=== PATIENT | male | born 1960 | race Caucasian/White ===

== ENCOUNTER 2020-09-22 18:26 | Inpatient (IN) | payer MEDICARE, MEDICAID, SELFPAY ==
[2020-09-22] VITALS (7 sets, daily range): BP systolic 94–118; BP diastolic 52–75; PULSE 107–113; RESP 20–37; TEMP 37.1–39.6; O2SAT 79–100; BMI 17.3
--- NOTE | 2020-09-22 21:04 | XR_ITS ---
EXAMINATION: XR CHEST CLINICAL INFORMATION: Hypoxia. Fever. COMPARISON: None TECHNIQUE: Frontal portable view of the chest was obtained. 9:10 PM FINDINGS: The chin overlies the right lung apex. Lung volume is low. This causes crowding of the bronchovascular markings. There is hazy airspace opacities at the left lung base concerning for pneumonia. There is no pleural effusion. XR/XR chest 1V IMPRESSION: Low lung volume. Hazy airspace opacities at left lung base concerning for pneumonia. Follow-up PA lateral view of chest would be helpful.
--- NOTE | 2020-09-22 21:05 | ED_ITS ---
HPI - Nausea/Vomiting/Diarrhea General Chief complaint: Nausea/Vomiting/Diarrhea Stated complaint: vomitting Time Seen by Provider: 09/22/20 21:03 Source: other (Caregiver) Mode of arrival: wheelchair Limitations: physical limitation (Patient with MR) History of Present Illness HPI Narrative: 60-year-old male with history of MR presented with his caregiver patient attendant a day program when started to have vomiting, patient also noted that he has fever 102, patient vomited several times after that, patient also noted to be coughing all day today. History is limited due to chronic mental status condition of the patient. Related Data Home Medications Medication Instructions Recorded Confirmed alendronate 70 mg PO Q7D 09/22/20 09/22/20 divalproex 250 mg PO DAILY 09/22/20 09/22/20 divalproex 500 mg PO BEDTIME 09/22/20 09/22/20 fluoxetine 60 mg PO DAILY@0630 09/22/20 09/22/20 fluvoxamine 1 tab PO BEDTIME 09/22/20 09/22/20 omeprazole 20 mg PO BID@0630,1630 09/22/20 09/22/20 Allergies Allergy/AdvReac Type Severity Reaction Status Date / Time No Known Allergies Allergy Verified 09/22/20 22:17 Review of Systems Review of Systems: Vital signs have been reviewed as normal and appeared to be correct. Blood pressure normal. Tachycardia. Respiration rate normal. Temperature normal. Hypoxia of 88% on room air.. Yes Unobtainable due to mental condition PMFSH Past Medical History Medical History Anxiety Cerebral palsy GERD (gastroesophageal reflux disease) Osteoporosis Seizure Spastic quadriplegia Social History Social History Alcohol intake: unknown Smoking Status: Unknown if ever smoked Use of substances other than those prescribed or required for medical reasons: Unknown Advance Directives: No Advance Directives Information Provided: Yes Physical Exam Vital Signs: Vital Signs: Last Vital Signs Temp 103.2 F H 09/22/20 22:08 Pulse 112 H 09/22/20 22:13 Resp 27 H 09/22/20 22:13 BP 96/75 09/22/20 22:13 Pulse Ox 97 11/18/20 22:13 Body Mass Index 17.3 Vital signs have been reviewed as normal and appeared to be correct. Blood pressure normal. Tachycardic. Respiration rate normal. Temperature normal. Hypoxia. Appearance: Alert, in bed position which is normal position as per caregiver. Head: Normal external exam. Normocephalic. Atraumatic. No [place] signs noted. No raccoon eyes noted Eyes: PERRLA. EOMI. Conjunctiva and sclera normal. Eyelids normal. ENT: EAC normal. TM's Normal. Pharynx normal. Uvula midline. Moist mucous membranes. No trismus noted. No drooling noted. No muffled voice noted. Neck: Normal inspection. Neck supple. FROM. No adenopathy. Thyroid Normal. No meningeal signs. No neck mass noted. CVS: Normal heart rate and rhythm. Heart sound normal. No murmurs noted. Pulses normal throughout. Respiratory: No respiratory distress. Painless inspiration. Breath sounds normal. No wheezes/rales/rhonchi noted. Chest nontender. No accessory muscle usage noted or decreased air movement noted. Abdomen: Soft and nontender. Bowel sounds normal in all 4 quadrants. No distention noted. No organomegaly noted. No visible injury noted. Back: No CVA tenderness. Full range of motion noted. Skin: Skin warm and dry. Normal skin color. Normal skin turgor. No rashes/lesions/lacerations noted. Extremities: No lower extremity edema. Extremities exhibit normal range of motion. Extremities nontender. Neuro: Oriented X 3. No motor deficit. No sensory deficit. Reflexes normal. MDM - Nausea/Vomiting/Diarrhea MDM Narrative Medical decision making narrative: Assessment and plan. 60-year-old male came in from half-way with fever, cough, nausea, vomiting. Patient found to have left lower lobe pneumonia, patient meet criteria for sepsis, no sign of severe sepsis or septic shock. Patient received 30 cc/kg fluid, patient live in half-way patient was covered with Zosyn/ceftriaxone for possible healthcare acquired pneumonia, patient is negative for COVID-19, will admit the patient and keep monitoring abnormal vital sign. Slight elevation of BUN but normal creatinine which is from dehydration secondary to nausea and vomiting. Otherwise patient is not sustaining severe sepsis or septic shock symptoms criteria. Lab Data Attestation: I reviewed the patient's lab results. Result diagrams: 09/22/20 21:29 09/22/20 21:29 Labs: Lab Results 09/22/20 09/22/20 09/22/20 Range/Units 21:28 21:29 21:29 WBC 19.6 H (4.8-10.8) X10*3/uL RBC 4.08 L (4.60-5.80) X10*6/uL Hgb 12.6 L (14.0-18.0) g/dl Hct 37.7 L (42-52) % MCV 92.4 (80-98) fL MCH 30.9 (27.0-33.0) pg MCHC 33.4 (31.0-36.0) g/dl RDW 12.1 (11.0-16.0) % Plt Count 233 (160-400) X10*3/uL MPV 11.0 (9.4-12.4) fL Immature Gran % (Auto) 0.3 (0.0-0.4) % Neut % (Auto) 92.4 H (45-73) % Lymph % (Auto) 1.8 L (20-40) % [place] % (Auto) 5.3 (2-11) % Eos % (Auto) 0.0 (0-4) % Baso % (Auto) 0.2 (0-2) % Lymph # (Auto) 0.4 L (1.2-4.9) X10*3/uL [place] # (Auto) 1.0 (0.1-1.2) X10*3/uL Eos # (Auto) 0.0 (0.0-0.4) X10*3/uL Baso # (Auto) 0.0 (0.0-0.2) X10*3/uL Abs Immat Gran (auto) 0.05 H (0.00-0.03) X10*3/uL Absolute Neuts (auto) 18.1 H (2.0-8.3) X10*3/uL Absolute Nucleated RBC 0.000 (0.0-0.012) X10*3/uL Nucleated RBC % (auto) 0.0 (0.0-0.2) /100WBC Smear Tech's Comments VERIFIED Sodium 136 (135-145) mmol/L Potassium 3.6 (3.3-5.1) mmol/l Chloride 101 (96-108) mmol/L Carbon Dioxide 24 (22-29) mmol/L Anion Gap 15 (12-20) BUN 23 H (9-16) mg/dL Creatinine 0.80 (0.5-1.4) mg/dL Estim Creat Clear Calc 65.2 Estimated GFR > 60 Random Glucose 118 H (60-115) mg/dL Lactic Acid (0.5-2.0) mmol/L Calcium 8.6 (8.4-10.2) mg/dL Total Bilirubin 0.4 (0.0-1.0) mg/dL Direct Bilirubin 0.2 (0.0-0.5) mg/dL AST 35 (5-37) U/L ALT 30 (0-40) U/L Alkaline Phosphatase 66 (39-117) U/L Total Protein 6.7 (6.5-8.0) g/dL Albumin 3.8 (3.5-5.0) g/dL Lipase 39 (8-78) U/L Urine Color Urine Appearance Urine pH (5.0-8.0) Ur Specific [place] (1.005-1.025) Urine Protein (NEG-TRACE) MG/DL Urine Glucose (UA) (NEG) MG/DL Urine Ketones (NEG) MG/DL Urine Blood (NEG) Urine Nitrite (NEG) Ur Leukocyte Esterase (NEG) Urine RBC (0) /HPF Urine WBC (0-4) /HPF Ur Squamous Epith Cells /LPF Urine Bacteria /LPF Urine Mucus /LPF COVID-19 (KATE) Negative (Negative) COVID-19 Clin Com See Note 09/22/20 09/22/20 Range/Units 21:29 21:59 WBC (4.8-10.8) X10*3/uL RBC (4.60-5.80) X10*6/uL Hgb (14.0-18.0) g/dl Hct (42-52) % MCV (80-98) fL MCH (27.0-33.0) pg MCHC (31.0-36.0) g/dl RDW (11.0-16.0) % Plt Count (160-400) X10*3/uL MPV (9.4-12.4) fL Immature Gran % (Auto) (0.0-0.4) % Neut % (Auto) (45-73) % Lymph % (Auto) (20-40) % [place] % (Auto) (2-11) % Eos % (Auto) (0-4) % Baso % (Auto) (0-2) % Lymph # (Auto) (1.2-4.9) X10*3/uL [place] # (Auto) (0.1-1.2) X10*3/uL Eos # (Auto) (0.0-0.4) X10*3/uL Baso # (Auto) (0.0-0.2) X10*3/uL Abs Immat Gran (auto) (0.00-0.03) X10*3/uL Absolute Neuts (auto) (2.0-8.3) X10*3/uL Absolute Nucleated RBC (0.0-0.012) X10*3/uL Nucleated RBC % (auto) (0.0-0.2) /100WBC Smear Tech's Comments Sodium (135-145) mmol/L Potassium (3.3-5.1) mmol/l Chloride (96-108) mmol/L Carbon Dioxide (22-29) mmol/L Anion Gap (12-20) BUN (9-16) mg/dL Creatinine (0.5-1.4) mg/dL Estim Creat Clear Calc Estimated GFR Random Glucose (60-115) mg/dL Lactic Acid 2.7 H* (0.5-2.0) mmol/L Calcium (8.4-10.2) mg/dL Total Bilirubin (0.0-1.0) mg/dL Direct Bilirubin (0.0-0.5) mg/dL AST (5-37) U/L ALT (0-40) U/L Alkaline Phosphatase (39-117) U/L Total Protein (6.5-8.0) g/dL Albumin (3.5-5.0) g/dL Lipase (8-78) U/L Urine Color YELLOW Urine Appearance HAZY Urine pH 6.0 (5.0-8.0) Ur Specific [place] 1.025 (1.005-1.025) Urine Protein NEG (NEG-TRACE) MG/DL Urine Glucose (UA) NEG (NEG) MG/DL Urine Ketones NEG (NEG) MG/DL Urine Blood 1+ H (NEG) Urine Nitrite NEG (NEG) Ur Leukocyte Esterase TRACE H (NEG) Urine RBC 1-4 (0) /HPF Urine WBC 1-4 (0-4) /HPF Ur Squamous Epith Cells NONE /LPF Urine Bacteria NONE /LPF Urine Mucus 2+ /LPF COVID-19 ([facility]ATE) (Negative) COVID-19 Clin Com Imaging Data Chest x-ray: Radiologist's impression: Hazy airspace opacities at left lung base concerning for pneumonia. Follow-up PA lateral view of chest would be helpful Discharge Plan Discharge Clinical Impression: Pneumonia Patient Disposition: Admitted As Inpatient Prescriptions: No Action divalproex 500 mg tablet extended release 24 hr 500 mg PO BEDTIME RF: 0 omeprazole 20 mg capsule,delayed release(DR/EC) 20 mg PO BID@0630,1630 RF: 0 fluvoxamine 50 mg tablet 1 tab PO BEDTIME RF: 0 divalproex 250 mg tablet extended release 24 hr 250 mg PO DAILY RF: 0 alendronate 70 mg/75 mL solution 70 mg PO Q7D RF: 0 fluoxetine 20 mg capsule 60 mg PO DAILY@0630 RF: 0
[2020-09-22 21:36] LABS: Basophils Percent Auto 0.2 % (0-2); Hematocrit 37.7 % (42-52); Hemoglobin 12.6 g/dl (14.0-18.0); Imm Gran Abs Auto 0.05 X10*3/uL (0.00-0.03); Imm Gran Pct Auto 0.3 % (0.0-0.4); Lymphocytes Absolute Auto 0.4 X10*3/uL (1.2-4.9); Lymphocytes Percent Auto 1.8 % (20-40); MANUAL DIFF FLAG SCAN; Mean Corpuscular HGB Conc 33.4 g/dl (31.0-36.0); Mean Corpuscular Hemoglobin 30.9 pg (27.0-33.0); Mean Corpuscular Volume 92.4 fL (80-98); Monocytes Percent Auto 5.3 % (2-11); Neutrophils Absolute Auto 18.1 X10*3/uL (2.0-8.3); Neutrophils Percent Auto 92.4 % (45-73); Platelet Count 233 X10*3/uL (160-400); Red Blood Count 4.08 X10*6/uL (4.60-5.80); Red Cell Distribution Width 12.1 % (11.0-16.0); SCAN SMEAR FLAG 1; White Blood Count 19.6 X10*3/uL (4.8-10.8)
[2020-09-22] MEDS: ondansetron HCL 4 MG/2 ML VIAL IVPUSH (21:45)
[2020-09-22] MEDS: 0.9 % Sodium Chloride 500 ML 1000 ML IV (21:45)
[2020-09-22 21:52] LABS: COVID-19 Test Negative (Negative)
[2020-09-22 21:54] LABS: SLIDE REVIEW VERIFIED
[2020-09-22 22:04] LABS: Glucose Urine UA NEG (NEG); Leukocyte Esterase Urine TRACE (NEG); Nitrite Urine NEG (NEG); Specific Gravity - Urine 1.025 (1.005-1.025); Urine Blood 1+ (NEG); Urine Ketones NEG (NEG); Urine Protein NEG (NEG-TRACE)
[2020-09-22 22:05] LABS: Appearance Urine HAZY; Color Urine YELLOW
[2020-09-22] MEDS: cefTRIAXone sodium 1 GM in 0.9 % Sodium Chloride 100 ML IV (22:08)
[2020-09-22 22:17] LABS: Mucus Urine 2+ /LPF
[2020-09-22 22:24] LABS: Alanine Aminotransferase 30 U/L (0-40); Albumin Level 3.8 g/dL (3.5-5.0); Alkaline Phosphatase 66 U/L (39-117); Anion Gap 15 (12-20); Aspartate Amino Transferase 35 U/L (5-37); Bilirubin Direct 0.2 mg/dL (0.0-0.5); Bilirubin Total 0.4 mg/dL (0.0-1.0); Blood Urea Nitrogen 23 mg/dL (9-16); Calcium 8.6 mg/dL (8.4-10.2); Carbon Dioxide 24 mmol/L (22-29); Chloride 101 mmol/L (96-108); Creatinine Clr Calc Pharmacy 65.2; Estimated Glomerular Filt Rate > 60; Glucose Random 118 mg/dL (60-115); Lipase 39 U/L (8-78); Potassium 3.6 mmol/l (3.3-5.1); Sodium 136 mmol/L (135-145); Total Protein 6.7 g/dL (6.5-8.0)
[2020-09-22 22:25] LABS: Lactic Acid 2.7 mmol/L (0.5-2.0)
--- NOTE | 2020-09-22 22:30 | PC.NURSE ---
Patient needs to have a puree diet thickened. Patient does take his pill but need to be in applesauce.
[2020-09-22] MEDS: Piperacillin Sodium/Tazobactam 3.375 GM in 0.9 % Sodium Chloride 50 ML IV (22:47)
[2020-09-22 23:37] LABS: Reflex Lactate? Lactic Acid Added
[2020-09-22] MEDS: vancomycin HCL 750 MG in 0.9 % Sodium Chloride 250 ML 265 MG IV (23:55)
[2020-09-23] VITALS (29 sets, daily range): BP systolic 90–155; BP diastolic 46–96; PULSE 90–120; RESP 16–50; TEMP 36.6–39.3; O2SAT 94–100
--- NOTE | 2020-09-23 01:06 | P.HPHOSP_ITS ---
History of Present Illness Date of Service: 09/23/20 Chief Complaint: Vomiting / cough 60 y/o male from [facility] who presented to the Ed due to persistent dry cough associted with an episode of vomiting. Patient has a hx of cerebral palsy and given cognitive function is unable to provide with any meaninful hx. Care give at the bedside who reports that today patient has been having this chronic cough which was associated with an episode of vomiting. Denies that the patient had any chest pain, SOB, diarrhea, constipation or any episode of fever today. On presentation to the ED, patient is noted to be tachycardic, tachypneic, borderline hypotensive, spiking multiple episodes of fever 102-103, WBC of 19, lactate of 2.7, UA positive for UTI, CXR positive for LLL opacities concerning for PNA. Patient was given one dose of Rocephin, Zosyn and Vanco per ED attending. Covid test negative. Decision for admission given. Patient was seen and examined at the bedside, laying down in bed in no acute distress. ROS unable to be obtained. Physical exam positive for bilateral LE contracted and UE, Mental impairment. Blood pressure borderline hypotensive, one bolus of NS order STAT. PMHX: Anxiety Cerebral palsy GERD (gastroesophageal reflux disease) Osteoporosis Seizure Spastic quadriplegia PSx: none Toxic habits: No documented hx of alcohol abuse, smoking or IVDA Review of Systems Review of Systems: Yes Other (unable to be obtained ) [facility] Medical History Anxiety Cerebral palsy GERD (gastroesophageal reflux disease) Osteoporosis Seizure Spastic quadriplegia Functional capacity: bed bound Family history: reviewed and not pertinent Social History Alcohol intake: unknown Smoking Status: Unknown if ever smoked Use of substances other than those prescribed or required for medical reasons: Unknown Advance Directives: No Advance Directives Information Provided: Yes Meds Allergies Allergy/AdvReac Type Severity Reaction Status Date / Time No Known Allergies Allergy Verified 09/22/20 22:17 Home Medications Medication Instructions Recorded Confirmed Type alendronate 70 mg PO Q7D 09/22/20 09/22/20 History divalproex 250 mg PO DAILY 09/22/20 09/22/20 History divalproex 500 mg PO BEDTIME 09/22/20 09/22/20 History fluoxetine 60 mg PO DAILY@0630 09/22/20 09/22/20 History fluvoxamine 1 tab PO BEDTIME 09/22/20 09/22/20 History omeprazole 20 mg PO BID@0630,1630 09/22/20 09/22/20 History Physical Exam Vital Signs and Narrative: Vital Signs: Last Vital Signs Temp 103.2 F H 09/22/20 22:08 Pulse 113 H 09/22/20 23:00 Resp 34 H 09/22/20 23:00 BP 94/54 L 09/22/20 23:00 Pulse Ox 100 09/22/20 23:00 Body Mass Index 17.3 Const: General: no acute distress, awake and Physically active Eyes: General: appearance normal, both eyes and all related structures Neck: Yes normal visual inspection Chest: Chest palpation & inspection: normal inspection of the chest Resp: Effort & Inspection: normal respiratory effort Cardio: Jugular venous distension: no JVD Rate: regular rate Rhythm: regular rhythm Heart sounds: S1 normal heart sound present and S2 normal heart sound present GI: Inspection: Yes normal to inspection Neuro: General: other (cognitive impairment present for what I am unable to assess orientation) Extrem: General: Yes other (contracted UE and LE ) Results Labs CBC and Chem 7: 09/22/20 21:29 09/22/20 21:29 Labs: Laboratory Results - last 24 hr 09/22/20 09/22/20 09/22/20 21:28 21:29 21:29 MCV 92.4 MCH 30.9 MCHC 33.4 RDW 12.1 Plt Count 233 MPV 11.0 Immature Gran % (Auto) 0.3 Neut % (Auto) 92.4 H Lymph % (Auto) 1.8 L [place] % (Auto) 5.3 Eos % (Auto) 0.0 Baso % (Auto) 0.2 Lymph # (Auto) 0.4 L [place] # (Auto) 1.0 Eos # (Auto) 0.0 Baso # (Auto) 0.0 Abs Immat Gran (auto) 0.05 H Absolute Neuts (auto) 18.1 H Absolute Nucleated RBC 0.000 Nucleated RBC % (auto) 0.0 Smear Tech's Comments VERIFIED Anion Gap 15 Estim Creat Clear Calc 65.2 Estimated GFR > 60 Random Glucose 118 H Lactic Acid Calcium 8.6 Total Bilirubin 0.4 Direct Bilirubin 0.2 AST 35 ALT 30 Alkaline Phosphatase 66 Total Protein 6.7 Albumin 3.8 Lipase 39 Urine Color Urine Appearance Urine pH Ur Specific [place] Urine Protein Urine Glucose (UA) Urine Ketones Urine Blood Urine Nitrite Ur Leukocyte Esterase Urine RBC Urine WBC Ur Squamous Epith Cells Urine Bacteria Urine Mucus COVID-19 (KATE) Negative COVID-19 Clin Com See Note 09/22/20 09/22/20 21:29 21:59 MCV MCH MCHC RDW Plt Count MPV Immature Gran % (Auto) Neut % (Auto) Lymph % (Auto) [place] % (Auto) Eos % (Auto) Baso % (Auto) Lymph # (Auto) [place] # (Auto) Eos # (Auto) Baso # (Auto) Abs Immat Gran (auto) Absolute Neuts (auto) Absolute Nucleated RBC Nucleated RBC % (auto) Smear Tech's Comments Anion Gap Estim Creat Clear Calc Estimated GFR Random Glucose Lactic Acid 2.7 H* Calcium Total Bilirubin Direct Bilirubin AST ALT Alkaline Phosphatase Total Protein Albumin Lipase Urine Color YELLOW Urine Appearance HAZY Urine pH 6.0 Ur Specific [place] 1.025 Urine Protein NEG Urine Glucose (UA) NEG Urine Ketones NEG Urine Blood 1+ H Urine Nitrite NEG Ur Leukocyte Esterase TRACE H Urine RBC 1-4 Urine WBC 1-4 Ur Squamous Epith Cells NONE Urine Bacteria NONE Urine Mucus 2+ COVID-19 (KATE) COVID-19 Clin Com Imaging Radiologist's Impressions: Impressions Chest X-Ray 09/22/20 21:04 IMPRESSION: Low lung volume. Hazy airspace opacities at left lung base concerning for pneumonia. Follow-up PA lateral view of chest would be helpful. Assessment and Plan (1) Sepsis: Status: Acute Keep MAP >65 mmHg Continue with aggressive IV hydration Continue with Vancomycin for gram positive coverage Continue with Zosyn for gram neg coverage Follow up Bcx as collected in the ED Infectious disease consult in the am (2) HCAP (healthcare-associated pneumonia): Status: Acute plan as above (3) UTI (urinary tract infection): Status: Acute Follow up Ucx Continue with IV antbx as stated above (4) GERD (gastroesophageal reflux disease): Status: Acute continue with PPI home dose (5) Seizure: Status: Acute continue with AED's home dose (6) Osteoporosis: Status: Acute continue with allendronate home dose (7) Cerebral palsy: Status: Acute stable continue with fluoxetine home dose
[2020-09-23] MEDS: LORazepam 2 MG/ML VIAL 1 MG IVPUSH (01:31)
[2020-09-23] MEDS: 0.9 % Sodium Chloride 1,000 ML 999 ML IVCONT (01:32)
--- NOTE | 2020-09-23 03:47 | XR_ITS ---
EXAMINATION: XR CHEST CLINICAL INFORMATION: Shortness of breath COMPARISON: 09/22/2020 TECHNIQUE: Frontal view of the chest was obtained. FINDINGS: Lungs are hypoinflated which limits evaluation. Patchy retrocardiac opacity is suspected, increased from prior. There is some prominence of the perihilar interstitium bilaterally which could reflect thick-walled airways. No appreciable pneumothorax or significant pleural effusion. The cardiomediastinal contour is unremarkable. No acute osseous findings are seen. XR/XR chest 1V IMPRESSION: Low lung volumes. Patchy retrocardiac opacity is suspected, increased from prior.
--- NOTE | 2020-09-23 04:34 | CT_ITS ---
EXAMINATION: CT ABDOMEN AND PELVIS WITH CONTRAST CLINICAL INFORMATION: Abdominal discomfort COMPARISON: None TECHNIQUE: Multidetector volumetric images were obtained from the superior aspect of the liver through the pubic symphysis following administration 85 mL of Omnipaque 350 intravenous contrast. Sagittal and coronal reformatted images were obtained on the technologist's workstation. Oral contrast: No This CT examination was performed using dose optimization techniques as appropriate, variously including the following: *Automated exposure control *Adjustment of mA and/or kV according to patient size (this includes techniques or standardized protocols for targeted exams where dose is matched to indication/reason for exam; i.e. extremities or head) *Use of iterative reconstruction technique DLP: 436 mGy-cm FINDINGS: Significantly limited evaluation of much of the abdomen/pelvis secondary to extensive motion artifact. LUNG BASES: Moderately extensive regions of patchy consolidation and groundglass opacity at the lung bases. LIVER, GALLBLADDER, AND BILIARY TREE: The liver is grossly unremarkable. No intrahepatic biliary ductal dilatation. Gallbladder is not well evaluated. PANCREAS: Grossly unremarkable. SPLEEN: Grossly unremarkable. ADRENAL GLANDS: Grossly unremarkable. KIDNEYS AND URETERS: The kidneys are normal in size, shape, and attenuation. No hydronephrosis, hydroureter, or obstructing calculi seen. No perinephric stranding. BLADDER: Minimally distended. GASTROINTESTINAL TRACT: Large amount of stool is present in the rectum and sigmoid colon with mild associated wall thickening. No convincing evidence of bowel obstruction. ABDOMINAL WALL: No significant hernia is appreciated. LYMPH NODES: Grossly unremarkable. VASCULAR: Unremarkable. OSSEOUS STRUCTURES: Grossly unremarkable. CT/CT abdomen pelvis w con IMPRESSION: 1. Limited assessment due to extensive patient motion artifact. Large amount of stool is present in the rectum and sigmoid colon. Mild associated wall thickening is present, which could reflect developing stercoral colitis. 2. Moderately extensive bibasilar pulmonary opacities, which could be secondary to aspiration and/or pneumonia.
[2020-09-23 04:37] LABS: Lactic Acid 2.2 mmol/L (0.5-2.0)
[2020-09-23 04:44] LABS: Base Excess VBG -5.3 mmol/L; HCO3 VBG 20 mmol/L; Oxygen Saturation VBG 85.4 %; PCO2 VBG 38 mmhg; PO2 VBG 53 mmhg; pH VBG 7.34 (7.32-7.43)
--- NOTE | 2020-09-23 05:45 | PC.NURSE ---
Patient remains tachypneic despite being on bipap. 02 sat has improved but patient is breathing hard. 34/45 breaths per minutes. Vbg drawn. Respiratory has been involved in patient's care. MD wanted patient to be weened off bipap and 02 decreased and patient placed on venti-mask. HR remains above 100. MD made aware of 0xygen sat dropping into 80's. Patient placed back on a non rebreather.
[2020-09-23 06:17] LABS: Reflex Lactate? Lactic Acid Added
[2020-09-23] MEDS: iohexoL 350 MG/ML 100 ML INFUS..BTL 65 ML IV (06:35)
--- NOTE | 2020-09-23 07:39 | PC.NURSE ---
report taken from andres cobb pt has been having difficulty maintaining o2 >90% on nb, provider at bedside to wen pt. pt is intermittently desatting to mid 80s on nonrebreather, pt has mental disability and is nonverbal, pt making labile movements in stretcher, having difficulty keeping mask on. plan to tranfer pt to room 5 for intubation, per dr arzate. pt intubated at 0731, et tube 7.5 and 25 elia. ls ausc bl +color change co2 detector. pt now sustaining o2 sat >95%. wctm.
[2020-09-23] MEDS: Etomidate 20 MG/10 ML VIAL 10 MG IVPUSH (07:43)
[2020-09-23] MEDS: fentaNYL citrate/NS 1,000 MCG/100 ML PLAST..BAG 2.5 MCG IVCONT (07:55)
--- NOTE | 2020-09-23 07:59 | XR_ITS ---
EXAMINATION: XR CHEST CLINICAL INFORMATION: Status post intubation and OG tube placement COMPARISON: 09/23/2020 TECHNIQUE: Frontal view of the chest was obtained. FINDINGS: The endotracheal tube terminates 2.5 cm above the milind. The enteric tube extends into the stomach. Cardiac leads overlie the chest. The lungs are well expanded. Patchy opacity seen at the left mid to lower lung, similar to prior. No pleural effusion or pneumothorax. The cardiomediastinal silhouette is within normal limits. XR/XR chest 1V IMPRESSION: Endotracheal tube terminates 2.5 cm above the milind. Enteric tube terminates in the stomach. Persistent patchy left basilar opacity.
--- NOTE | 2020-09-23 08:25 | CT_ITS ---
EXAMINATION: CT CHEST WITHOUT CONTRAST CLINICAL INFORMATION: Hypoxia COMPARISON: Radiograph from earlier today TECHNIQUE: Multidetector volumetric CT imaging of the chest was done. Axial MIP volume rendering provided. Sagittal and coronal reformatted images were obtained. This CT examination was performed using dose optimization techniques as appropriate, variously including the following: *Automated exposure control *Adjustment of mA and/or kV according to patient size (this includes techniques or standardized protocols for targeted exams where dose is matched to indication/reason for exam; i.e. extremities or head) *Use of iterative reconstruction technique DLP: 163 mGy-cm FINDINGS: LUNGS: The endotracheal tube terminates approximately 2 cm above the milind. The central airways are patent. Groundglass opacities are seen with heterogeneous distribution involving both upper lobes. Areas of consolidation are seen in both lower lobes with air bronchograms. Small right pleural effusion. No pneumothorax. Motion on the study limits evaluation for small nodules. Subtle tree-in-bud nodular opacities are suspected in the right middle lobe. MEDIASTINUM: Normal heart size. No pericardial effusion. No mediastinal lymphadenopathy. AXILLA: No lymphadenopathy. UPPER ABDOMEN: Contrast is seen in both renal collecting systems, from prior abdominal CT. No acute abnormality. Enteric tube extending into the stomach. OSSEOUS STRUCTURES: No acute or suspicious osseous abnormality. Scoliotic curvature of the spine with degenerative change. Height loss of multiple thoracic vertebral bodies noted, and particular T5, T6, T7, and T8. CT/CT chest wo con IMPRESSION: Endotracheal tube terminating 2 cm above the milind. Groundglass opacities are seen in both upper lobes with more dense consolidation patchy in both lower lobes. Small right pleural effusion. Considerations include multifocal pneumonia. Aspiration possible. Atypical pneumonia is possible. Cannot exclude viral pneumonia and inflammatory processes.
--- NOTE | 2020-09-23 08:47 | PC.NURSE ---
og tube placed, +auscultation of placement. go catheter placed draining clear yellow urine att, initial drainage 100 ml. commercial designer at bedside.
--- NOTE | 2020-09-23 09:28 | PC.NURSE ---
pt has been becoming difficult to sedate, pt breathing rate over vent, auto electrician contacted to inquire about further sedation
[2020-09-23] MEDS: propofoL 1,000 MG/100 ML VIAL 5.5 MG IVCONT (09:58)
[2020-09-23] MEDS: 0.9 % Sodium Chloride 1,000 ML 100 ML IVCONT ×2 (10:03→20:50)
[2020-09-23 10:51] LABS: Hematocrit 31.6 % (42-52); Hemoglobin 10.3 g/dl (14.0-18.0); Mean Corpuscular HGB Conc 32.6 g/dl (31.0-36.0); Mean Corpuscular Volume 95.2 fL (80-98); Mean Platelet Volume 11.1 fL (9.4-12.4); Platelet Count 144 X10*3/uL (160-400); Red Blood Count 3.32 X10*6/uL (4.60-5.80); Red Cell Distribution Width 12.6 % (11.0-16.0); White Blood Count 16.9 X10*3/uL (4.8-10.8)
[2020-09-23 11:13] LABS: Neutrophils Percent Manual 69 % (45-73); ~Lactic Acid-LAB USE ONLY 1.1 mmol/L (0.5-2.0)
[2020-09-23 11:14] LABS: Band Neutrophils Percent 19 % (3-5); Lymphocytes Absolute Manual 1.5 X10*3/uL (0.6-4.8); Lymphocytes Percent Manual 9 % (20-40); Metamyelocytes Absolute 0.2 X10*3/uL; Metamyelocytes Percent 1 %; Monocytes Absolute Manual 0.3 X10*3/uL (0.0-1.2); Monocytes Percent Manual 2 % (2-11); Neutrophils Absolute Manual 14.9 X10*3/uL (2.2-7.9)
[2020-09-23 11:15] LABS: Hypochromasia 1+; Platelet Estimate SLIGHTLY DECREASED (NORMAL); Platelet Morphology Comment NORMAL; RBC Morphology NOTED
[2020-09-23 11:20] LABS: Blood Urea Nitrogen 16 mg/dL (9-16); Estimated Glomerular Filt Rate > 60; Glucose Random 98 mg/dL (60-115)
[2020-09-23 11:36] LABS: Anion Gap 8 (12-20); Calcium 6.8 mg/dL (8.4-10.2); Carbon Dioxide 26 mmol/L (22-29); Chloride 109 mmol/L (96-108); Potassium 4.2 mmol/l (3.3-5.1); Sodium 139 mmol/L (135-145)
[2020-09-23] MEDS: Heparin Sodium,Porcine 5,000 UNIT/ML VIAL 5000 UNIT SUBCUT ×2 (11:39→17:35)
[2020-09-23] MEDS: 0.9 % Sodium Chloride Flush 3 ML SYRINGE IVFLUSH ×2 (11:40→14:56)
[2020-09-23] MEDS: Piperacillin Sodium/Tazobactam 3.375 GM in 0.9 % Sodium Chloride 50 ML IV ×3 (11:40→21:30)
[2020-09-23] MEDS: Albuterol/Iprat 2.5/0.5MG 3 ML AMPUL.NEB INHALE ×3 (12:04→19:56)
[2020-09-23] MEDS: Midazolam HCl/PF 2 MG/2 ML VIAL 5 MG IVPUSH (12:15)
[2020-09-23] MEDS: Midazolam HCl/PF 2 MG/2 ML VIAL 3 MG IVPUSH (12:30)
--- NOTE | 2020-09-23 12:39 | XR_ITS ---
EXAMINATION: XR CHEST CLINICAL INFORMATION: Evaluate central line placement. COMPARISON: Chest radiograph from 09/22/2020 through 09/23/2020 TECHNIQUE: Frontal view of the chest was obtained. FINDINGS: An endotracheal tube terminates approximately 2.5 cm above the milind. An enteric tube terminates in the region of the stomach. A right internal jugular approach central venous catheter terminates within the right atrium, approximately 3.5 cm from the cavoatrial junction. There is no pneumothorax. Cardiac leads overlie the chest. Bilateral patchy pulmonary opacities are slightly increased when compared to the prior examination. The pulmonary vasculature is engorged. There is no large pleural effusion. XR/XR chest 1V IMPRESSION: Endotracheal tube terminates approximately 2.5 cm above the milind. A right internal jugular approach venous catheter terminates within the right atrium, approximately 3.5 cm from the cavoatrial junction. Bilateral patchy pulmonary opacities are slightly increased when compared to the prior examination.
[2020-09-23 12:57] LABS: Adenovirus PCR Not Detected (Not Detect.); Bordetella parapertussis PCR Not Detected (Not Detect.); Bordetella pertussis PCR Not Detected (Not Detect.); Chlamydia pneumoniae PCR Not Detected (Not Detect.); Coronavirus 229E PCR Not Detected (Not Detect.); Coronavirus HKU1 PCR Not Detected (Not Detect.); Coronavirus NL63 PCR Not Detected (Not Detect.); Coronavirus OC43 PCR Not Detected (Not Detect.); Human metapneumovirus PCR Not Detected (Not Detect.); Influenza A PCR Not Detected (Not Detect.); Influenza B PCR Not Detected (Not Detect.); Mycoplasma pneumoniae PCR Not Detected (Not Detect.); Parainfluenza 1 PCR Not Detected (Not Detect.); Parainfluenza 2 PCR Not Detected (Not Detect.); Parainfluenza 3 PCR Not Detected (Not Detect.); Parainfluenza 4 PCR Not Detected (Not Detect.); RSV PCR Not Detected (Not Detect.); Rhino/Enterovirus PCR Not Detected (Not Detect.); SARS-CoV-2 PCR Not Detected (Not Detect.)
[2020-09-23] MEDS: Midazolam HCl/PF 2 MG/2 ML VIAL IVPUSH (13:14)
[2020-09-23] MEDS: Rocuronium Bromide 50 MG/5 ML VIAL 20 MG IVPUSH ×2 (13:15→14:45)
[2020-09-23 13:19] LABS: Base Excess VBG -4.2 mmol/L; HCO3 VBG 22 mmol/L; Oxygen Saturation VBG 87.9 %; PCO2 VBG 42 mmhg; PO2 VBG 57 mmhg; pH VBG 7.33 (7.32-7.43)
[2020-09-23] MEDS: Furosemide 20 MG/2 ML VIAL 10 MG IVPUSH (13:45)
--- NOTE | 2020-09-23 13:59 | PM.CCHP ---
History of Present Illness Date of Service: 09/23/20 Chief Complaint: shortness of breath 60-year-old the urine with significant congenital issues in including mental compromise non communicative and wheelchair-bound noted to be short of breath presented with acute hypoxemic respiratory failure intubated with significant pattern of extensive bilateral ground-glass infiltrates and consolidation with elevated white count and left shift negative for COVID but the rest of the respiratory panel is pending he has become increasingly hypercapnic with end-tidal CO2 is dropping to 17 in the face of a pCO2 of over 40 no change in in pH no change in bicarb and proof of resolved lactate and what looks like increasing extent of infiltrates bilaterally and we now have CVP measurements which have been hovering at around 10 the implication here is that this is a response to diminishing alveolar ventilation, in other words, increasing space potentially consistent with pulmonary edema versus progressive ARDS bedside echo shows normal LV and RV size and function with no primary valve or pericardial disease right internal jugular central venous pressure line with tip in the right atrium was placed because of lack of venous access and the patient is being treated with Zosyn and vancomycin Review of Systems Review of Systems: unable because of sedation and intubation [facility] Past Medical History Medical History (Updated 09/23/20 @ 07:56 by Balbina Thompson MD) Anxiety Cerebral palsy GERD (gastroesophageal reflux disease) Osteoporosis Seizure Spastic quadriplegia Functional capacity: bed bound Family History Family history: reviewed and not pertinent Social History Social History Household Members: Other Household Members Other:: senior care Housing: House Alcohol intake: unknown Smoking Status: Unknown if ever smoked Use of substances other than those prescribed or required for medical reasons: Unknown Advance Directives: No Advance Directives Information Provided: Yes Recently lost weight without trying: Unsure Meds Allergies Allergy/AdvReac Type Severity Reaction Status Date / Time No Known Allergies Allergy Verified 09/22/20 22:17 Home Medications Medication Instructions Recorded Confirmed Type alendronate 70 mg PO Q7D 09/22/20 09/22/20 History divalproex 250 mg PO DAILY 09/22/20 09/22/20 History divalproex 500 mg PO BEDTIME 09/22/20 09/22/20 History fluoxetine 60 mg PO DAILY@0630 11/18/20 11/18/20 History fluvoxamine 1 tab PO BEDTIME 09/22/20 09/22/20 History omeprazole 20 mg PO BID@0630,1630 09/22/20 09/22/20 History Physical Exam Vital Signs: Vital Signs: Last Vital Signs Temp 98.1 F 09/23/20 13:00 Pulse 115 H 09/23/20 13:00 Resp 20 09/23/20 13:00 BP 107/65 09/23/20 13:00 Pulse Ox 97 09/23/20 13:00 Body Mass Index 17.3 sedated and intubated with skin intact no wounds no rash no decubiti I no acrocyanosis no neck vein distension and no edema good bilateral carotid upstrokes without bruits and normal S1 and normal S2 with no gallops or murmurs chest rising equally without audible wheeze but in end-tidal CO2 pattern indicating bronchospasm abdomen is benign no bruits no tenderness no organomegaly and normal flat plate Results Labs CBC and Chem 7: 09/23/20 10:41 09/23/20 10:41 Labs: Laboratory Results - last 24 hr 09/22/20 09/22/20 09/22/20 21:28 21:29 21:29 MCV 92.4 MCH 30.9 MCHC 33.4 RDW 12.1 Plt Count 233 MPV 11.0 Immature Gran % (Auto) 0.3 Neut % (Auto) 92.4 H Lymph % (Auto) 1.8 L [place] % (Auto) 5.3 Eos % (Auto) 0.0 Baso % (Auto) 0.2 Lymph # (Auto) 0.4 L [place] # (Auto) 1.0 Eos # (Auto) 0.0 Baso # (Auto) 0.0 Abs Immat Gran (auto) 0.05 H Absolute Neuts (auto) 18.1 H Absolute Nucleated RBC 0.000 Nucleated RBC % (auto) 0.0 Neutrophils % (Manual) Band Neutrophils % Lymphocytes % (Manual) Monocytes % (Manual) Metamyelocytes % Abs Neuts (Manual) Lymphocytes # (Manual) Monocytes # (Manual) Metamyelocytes # Platelet Estimate Plt Morphology Comment RBC Morphology Hypochromasia Smear Tech's Comments VERIFIED VBG pH VBG pCO2 VBG pO2 VBG HCO3 VBG O2 Saturation VBG Base Excess Anion Gap 15 Estim Creat Clear Calc 65.2 Estimated GFR > 60 Random Glucose 118 H Lactic Acid Lactic Acid Fup @ 2Hr Calcium 8.6 Total Bilirubin 0.4 Direct Bilirubin 0.2 AST 35 ALT 30 Alkaline Phosphatase 66 Total Protein 6.7 Albumin 3.8 Lipase 39 Urine Color Urine Appearance Urine pH Ur Specific [place] Urine Protein Urine Glucose (UA) Urine Ketones Urine Blood Urine Nitrite Ur Leukocyte Esterase Urine RBC Urine WBC Ur Squamous Epith Cells Urine Bacteria Urine Mucus COVID-19 (KATE) Negative COVID-19 Clin Com See Note 09/22/20 09/22/20 09/23/20 21:29 21:59 04:10 MCV MCH MCHC RDW Plt Count MPV Immature Gran % (Auto) Neut % (Auto) Lymph % (Auto) [place] % (Auto) Eos % (Auto) Baso % (Auto) Lymph # (Auto) [place] # (Auto) Eos # (Auto) Baso # (Auto) Abs Immat Gran (auto) Absolute Neuts (auto) Absolute Nucleated RBC Nucleated RBC % (auto) Neutrophils % (Manual) Band Neutrophils % Lymphocytes % (Manual) Monocytes % (Manual) Metamyelocytes % Abs Neuts (Manual) Lymphocytes # (Manual) Monocytes # (Manual) Metamyelocytes # Platelet Estimate Plt Morphology Comment RBC Morphology Hypochromasia Smear Tech's Comments VBG pH VBG pCO2 VBG pO2 VBG HCO3 VBG O2 Saturation VBG Base Excess Anion Gap Estim Creat Clear Calc Estimated GFR Random Glucose Lactic Acid 2.7 H* 2.2 H* Lactic Acid Fup @ 2Hr Calcium Total Bilirubin Direct Bilirubin AST ALT Alkaline Phosphatase Total Protein Albumin Lipase Urine Color YELLOW Urine Appearance HAZY Urine pH 6.0 Ur Specific [place] 1.025 Urine Protein NEG Urine Glucose (UA) NEG Urine Ketones NEG Urine Blood 1+ H Urine Nitrite NEG Ur Leukocyte Esterase TRACE H Urine RBC 1-4 Urine WBC 1-4 Ur Squamous Epith Cells NONE Urine Bacteria NONE Urine Mucus 2+ COVID-19 (KATE) COVID-19 Clin Com 09/23/20 09/23/20 09/23/20 04:38 10:41 10:41 MCV 95.2 MCH 31.0 MCHC 32.6 RDW 12.6 Plt Count 144 L D MPV 11.1 Immature Gran % (Auto) Cancelled Neut % (Auto) Cancelled Lymph % (Auto) Cancelled [place] % (Auto) Cancelled Eos % (Auto) Cancelled Baso % (Auto) Cancelled Lymph # (Auto) Cancelled [place] # (Auto) Cancelled Eos # (Auto) Cancelled Baso # (Auto) Cancelled Abs Immat Gran (auto) Cancelled Absolute Neuts (auto) Cancelled Absolute Nucleated RBC 0.000 Nucleated RBC % (auto) 0.0 Neutrophils % (Manual) 69 Band Neutrophils % 19 H Lymphocytes % (Manual) 9 L Monocytes % (Manual) 2 Metamyelocytes % 1 Abs Neuts (Manual) 14.9 H Lymphocytes # (Manual) 1.5 Monocytes # (Manual) 0.3 Metamyelocytes # 0.2 Platelet Estimate SLIGHTLY DECREASED Plt Morphology Comment NORMAL RBC Morphology NOTED Hypochromasia 1+ Smear Tech's Comments VBG pH 7.34 VBG pCO2 38 VBG pO2 53 VBG HCO3 20 VBG O2 Saturation 85.4 VBG Base Excess -5.3 Anion Gap Estim Creat Clear Calc Estimated GFR Random Glucose Lactic Acid Lactic Acid Fup @ 2Hr 1.1 Calcium Total Bilirubin Direct Bilirubin AST ALT Alkaline Phosphatase Total Protein Albumin Lipase Urine Color Urine Appearance Urine pH Ur Specific [place] Urine Protein Urine Glucose (UA) Urine Ketones Urine Blood Urine Nitrite Ur Leukocyte Esterase Urine RBC Urine WBC Ur Squamous Epith Cells Urine Bacteria Urine Mucus COVID-19 (KATE) COVID-19 Clin Com 09/23/20 09/23/20 10:41 12:53 MCV MCH MCHC RDW Plt Count MPV Immature Gran % (Auto) Neut % (Auto) Lymph % (Auto) [place] % (Auto) Eos % (Auto) Baso % (Auto) Lymph # (Auto) [place] # (Auto) Eos # (Auto) Baso # (Auto) Abs Immat Gran (auto) Absolute Neuts (auto) Absolute Nucleated RBC Nucleated RBC % (auto) Neutrophils % (Manual) Band Neutrophils % Lymphocytes % (Manual) Monocytes % (Manual) Metamyelocytes % Abs Neuts (Manual) Lymphocytes # (Manual) Monocytes # (Manual) Metamyelocytes # Platelet Estimate Plt Morphology Comment RBC Morphology Hypochromasia Smear Tech's Comments VBG pH 7.33 VBG pCO2 42 VBG pO2 57 VBG HCO3 22 VBG O2 Saturation 87.9 VBG Base Excess -4.2 Anion Gap 8 L Estim Creat Clear Calc 79.0 Estimated GFR > 60 Random Glucose 98 Lactic Acid Lactic Acid Fup @ 2Hr Calcium 6.8 L D Total Bilirubin Direct Bilirubin AST ALT Alkaline Phosphatase Total Protein Albumin Lipase Urine Color Urine Appearance Urine pH Ur Specific [place] Urine Protein Urine Glucose (UA) Urine Ketones Urine Blood Urine Nitrite Ur Leukocyte Esterase Urine RBC Urine WBC Ur Squamous Epith Cells Urine Bacteria Urine Mucus COVID-19 (KATE) COVID-19 Clin Com Imaging Radiologist's Impressions: Impressions Chest X-Ray 09/22/20 21:04 IMPRESSION: Low lung volume. Hazy airspace opacities at left lung base concerning for pneumonia. Follow-up PA lateral view of chest would be helpful. Chest X-Ray 09/23/20 03:47 IMPRESSION: Low lung volumes. Patchy retrocardiac opacity is suspected, increased from prior. Abdomen/Pelvis CT 09/23/20 04:34 IMPRESSION: 1. Limited assessment due to extensive patient motion artifact. Large amount of stool is present in the rectum and sigmoid colon. Mild associated wall thickening is present, which could reflect developing stercoral colitis. 2. Moderately extensive bibasilar pulmonary opacities, which could be secondary to aspiration and/or pneumonia. Chest X-Ray 09/23/20 07:59 IMPRESSION: Endotracheal tube terminates 2.5 cm above the milind. Enteric tube terminates in the stomach. Persistent patchy left basilar opacity. Chest CT 09/23/20 08:25 IMPRESSION: Endotracheal tube terminating 2 cm above the milind. Groundglass opacities are seen in both upper lobes with more dense consolidation patchy in both lower lobes. Small right pleural effusion. Considerations include multifocal pneumonia. Aspiration possible. Atypical pneumonia is possible. Cannot exclude viral pneumonia and inflammatory processes. Chest X-Ray 09/23/20 12:39 IMPRESSION: Endotracheal tube terminates approximately 2.5 cm above the milind. A right internal jugular approach venous catheter terminates within the right atrium, approximately 3.5 cm from the cavoatrial junction. Bilateral patchy pulmonary opacities are slightly increased when compared to the prior examination. Assessment and Plan (1) Acute respiratory failure: Qualifiers: Respiratory failure complication: hypoxia Qualified Code(s): J96.01 - Acute respiratory failure with hypoxia Status: Acute (2) GERD (gastroesophageal reflux disease): Status: Acute (3) Seizure: Status: Acute (4) Osteoporosis: Status: Acute (5) Cerebral palsy: Status: Acute (6) UTI (urinary tract infection): Status: Acute (7) HCAP (healthcare-associated pneumonia): Status: Acute (8) Sepsis: Status: Acute (9) Pneumonia: Qualifiers: Laterality: left Lung location: lower lobe of lung Pneumonia type: due to unspecified organism Qualified Code(s): J18.9 - Pneumonia, unspecified organism Status: Acute will continue Zosyn and vancomycin and adding Decadron and the albuterol and will attempt 10 mg of Lasix because of CVP rising to 12 with a plus Thorek chest x-ray where I can not rule out a contribution from pulmonary edema
[2020-09-23 14:10] LABS: Vancomycin Trough < 3.0 mcg/mL (10.0-20.0)
--- NOTE | 2020-09-23 14:12 | W.PM.CCHP ---
Procedures Abscess I/D Date of Service: 09/23/20 Central Line Placement Right IJ: Central Line Comments: after sterile preparation and draping in the usual fashion and utilizing ultrasound guidance I inserted a J tipped guidewire after single stick with easy access retrograde with Seldinger technique to the right atrium over which a dilator and then followed by a 16 cm triple-lumen central venous pressure catheter with its tip in the right atrium and no evidence of pneumothorax Consent for Procedure: Emergent-no informed consent obtained Time out performed: Yes Sterile Technique Used: Yes Patient placed on monitor/pulse ox: Yes MD prep: mask, gown and gloves Central line prep: Chlorhexidine scrub Local anesthesia used: lidocaine 1% Ultrasound used for placement: Yes Central line lumen inserted: triple Post procedure: sutured in place, good blood return, all ports aspirated, flushed, capped and sterile dressing applied Post procedure x-ray: tip of catheter in good position and no pneumothorax seen Patient tolerated procedure: well and no complications Complications: none
[2020-09-23] MEDS: dexAMETHasone sod phosphate 4 MG/ML VIAL 6 MG IVPUSH ×2 (14:56→20:50)
[2020-09-23] MEDS: Chlorhexidine Gluc Oral Rinse 15 ML MOUTHWASH BUCCAL ×2 (16:15→20:50)
--- NOTE | 2020-09-23 17:11 | PC.NURSE ---
Patient arrived from ED via stretcher at 1200 - Afebrile. Patient arousable to tactile stimuli - Propofol gtt administering - multiple versed IVP doses administered per EMAR with minimal effect. RR up to 40 on vent, HR 120's - Patient received two doses of Chidi 20mg IVP - Vent settings changed from AC 20, 300, 5, 40% to PC 18/5 40%, TV 460-510, MV 9-10. Patient appears more comfortable on new settings - RR down to 20, HR 110's. Lung sounds coarse bilateral upper lobes, small amount of hill inline secretions. TLC RIJ placed by senior devops engineer. Lasix 10mg IVP ordered and administered - CVP 6-10, output approximately 900cc yellow urine. Okay per MD to resume NS at 100cc/hr. BP soft - patient started on levophed gtt and titrated per EMAR. No BM - feet enema ordered and to be administered with next reposition. No skin integrity concerns - patient placed on air loss mattress and hover mat, full bed bath completed, oral care completed, repositioned q2hr. HCP updated and agreeable to plan of care. Will continue to monitor.
[2020-09-23] MEDS: propofoL 1,000 MG/100 ML VIAL 11 MG IVCONT (17:36)
[2020-09-23] MEDS: Sodium Phosphate,Mono-Dibasic 133 ML ENEMA PR (18:11)
[2020-09-24] VITALS (33 sets, daily range): BP systolic 106–125; BP diastolic 53–73; PULSE 89–107; RESP 15–18; TEMP 36–38.1; O2SAT 92–98; BMI 17.4
--- NOTE | 2020-09-24 | XR_ITS ---
EXAMINATION: XR CHEST CLINICAL INFORMATION: On ventilator, follow-up. COMPARISON: 09/23/2020 portable chest. TECHNIQUE: Frontal view of the chest was obtained. FINDINGS: Support devices: The endotracheal tube is seen with tip terminating approximately 3.2 cm proximal to the milind. A right internal jugular catheter seen with tip terminating at the level the right atrium. The nasogastric tube is seen with tip overlying the left upper quadrant/proximal stomach without significant change. Rotated and kyphotic positioning is suboptimal. Mild increased markings are seen in the lower lung field and infrahilar regions. The heart and mediastinal structures are unremarkable. Mild superior thoracic levoscoliosis is noted. XR/XR chest 1V IMPRESSION: 1. Support devices as detailed above. 2. Mildly increased markings in the upper outer regions may be projectional, but atelectasis or small infiltrates cannot be completely excluded.
[2020-09-24] MEDS: Heparin Sodium,Porcine 5,000 UNIT/ML VIAL 5000 UNIT SUBCUT ×3 (02:21→16:46)
[2020-09-24 02:26] LABS: Base Excess VBG -1.3 mmol/L; HCO3 VBG 23 mmol/L; Oxygen Saturation VBG 85.9 %; PCO2 VBG 35 mmhg; PO2 VBG 51 mmhg; pH VBG 7.43 (7.32-7.43)
[2020-09-24] MEDS: Piperacillin Sodium/Tazobactam 3.375 GM in 0.9 % Sodium Chloride 50 ML IV ×4 (03:38→21:43)
[2020-09-24] MEDS: propofoL 1,000 MG/100 ML VIAL 11 MG IVCONT (03:38)
[2020-09-24 05:55] LABS: Basophils Percent Auto 0.1 % (0-2); Hematocrit 28.4 % (42-52); Hemoglobin 9.2 g/dl (14.0-18.0); Imm Gran Abs Auto 0.04 X10*3/uL (0.00-0.03); Imm Gran Pct Auto 0.4 % (0.0-0.4); Lymphocytes Absolute Auto 0.2 X10*3/uL (1.2-4.9); Lymphocytes Percent Auto 2.1 % (20-40); MANUAL DIFF FLAG SCAN; Mean Corpuscular HGB Conc 32.4 g/dl (31.0-36.0); Mean Corpuscular Volume 92.5 fL (80-98); Mean Platelet Volume 11.9 fL (9.4-12.4); Monocytes Absolute Auto 0.4 X10*3/uL (0.1-1.2); Monocytes Percent Auto 3.8 % (2-11); Neutrophils Absolute Auto 10.6 X10*3/uL (2.0-8.3); Neutrophils Percent Auto 93.6 % (45-73); Platelet Count 140 X10*3/uL (160-400); Red Blood Count 3.07 X10*6/uL (4.60-5.80); Red Cell Distribution Width 12.4 % (11.0-16.0); SCAN SMEAR FLAG 1; White Blood Count 11.3 X10*3/uL (4.8-10.8)
[2020-09-24 06:04] LABS: Base Excess VBG -2.6 mmol/L; HCO3 VBG 21 mmol/L; Oxygen Saturation VBG 83.8 %; PCO2 VBG 33 mmhg; PO2 VBG 46 mmhg; pH VBG 7.43 (7.32-7.43)
[2020-09-24 06:10] LABS: Lactic Acid 0.7 mmol/L (0.5-2.0)
[2020-09-24 06:21] LABS: Anion Gap 10 (12-20); Blood Urea Nitrogen 13 mg/dL (9-16); C Reactive Protein 28.94 mg/dL (< or = 0.50); Calcium 6.6 mg/dL (8.4-10.2); Carbon Dioxide 23 mmol/L (22-29); Chloride 111 mmol/L (96-108); Creatinine Clr Calc Pharmacy 88.4; Estimated Glomerular Filt Rate > 60; Glucose Random 136 mg/dL (60-115); Lactate Dehydrogenase 742 U/L (118-273); Magnesium 2.1 mg/dL (1.6-2.6); Phosphorus 1.8 mg/dL (2.7-4.5); Potassium 3.1 mmol/l (3.3-5.1); Sodium 141 mmol/L (135-145)
[2020-09-24 06:22] LABS: D Dimer 991 NG/ML
[2020-09-24 06:33] LABS: Procalcitonin 3.44 ng/mL
[2020-09-24 06:38] LABS: SLIDE REVIEW VERIFIED
[2020-09-24] MEDS: Chlorhexidine Gluc Oral Rinse 15 ML MOUTHWASH BUCCAL ×3 (08:35→21:43)
[2020-09-24] MEDS: dexAMETHasone sod phosphate 4 MG/ML VIAL 6 MG IVPUSH ×2 (08:36→21:43)
[2020-09-24] MEDS: 0.9 % Sodium Chloride Flush 3 ML SYRINGE IVFLUSH ×5 (08:36→23:47)
[2020-09-24] MEDS: KCl 20 mEq in 5 % Dex/Lact Rin 20 MEQ/1,000 ML IV.SOLN 100 MEQ IVCONT ×2 (08:45→21:09)
[2020-09-24] MEDS: propofoL 1,000 MG/100 ML VIAL 13.74 MG IVCONT ×3 (09:32→23:48)
--- NOTE | 2020-09-24 09:56 | MHC.CLN ---
PT IS MODERATELY MALNOURISHED IF TF NEEDED; RECOMMEND OSMOLITE AT MAX GOAL RATE 35CC/HR WITH 20CC FREE WATER FLSUH Q SHIFT TO PROVIDE 1260KCALS (1623KCALS WITH SEDATION; 35KCALS/KG), 52.6G PROTEIN (1.1G/KG), 1320CC TOTAL WATER FROM FORMULA AND FLUSHES (28.6CC/KG) MONITOR RESIDUALS, TOLERANCE AND LYTES
--- NOTE | 2020-09-24 10:05 | P.PNCC_ITS ---
Subjective Subjective Date of Service: 09/24/20 Interval History: 60-year-old with history of cerebral palsy who is wheelchair- bound does not have any coordination of extremities and is nonverbal and has had progressive dysphagia over time who was noted to vomit on the day of admission yesterday and shortly thereafter progressive respiratory distress presenting with acute hypoxemic respiratory failure with extensive bilateral infiltrates but testing COVID negative and the entire respiratory viral panel is negative as well but because he comes from a detention situation was treated as a healthcare associated pneumonia with Zosyn and vancomycin and also noted to have an E coli urinary tract infection obviously responsive to the Zosyn and today has resolving leukocytosis but persistent left shift and dramatically clearing chest x-ray along with reduction of FiO2 requirements to 30% and minutes ventilatory requirements below 10 liters/minute doing comfortably well on a pressure control mode Physical Exam Vital Signs: Vital Signs: Last Vital Signs Temp 98.8 F 09/24/20 09:00 Pulse 100 09/24/20 09:00 Resp 18 09/24/20 09:00 BP 111/63 09/24/20 09:00 Pulse Ox 95 09/24/20 09:00 Body Mass Index 17.4 Const: Other: remains sedated and intubated but did awaken briefly skin is intact with no decubiti I no rashes and no acrocyanosis pupils equal and reactive to light CVP measuring 8-9 with no neck vein distension and good bilateral carotid upstrokes and no bruits and normal S1 and normal S2 with no gallops or murmurs and bedside echo revealing normal cardiac function her chest with some coarse ventilated breath sounds no adventitious sounds and no accessory muscle use abdomen is benign no bruits no tenderness no organomegaly Objective Data Labs CBC & Chem 7: 09/24/20 05:20 09/24/20 05:20 Labs: Laboratory Results - last 24 hr 09/23/20 09/23/20 09/23/20 10:31 10:41 10:41 WBC 16.9 H RBC 3.32 L Hgb 10.3 L Hct 31.6 L MCV 95.2 MCH 31.0 MCHC 32.6 RDW 12.6 Plt Count 144 L D MPV 11.1 Immature Gran % (Auto) Cancelled Neut % (Auto) Cancelled Lymph % (Auto) Cancelled [place] % (Auto) Cancelled Eos % (Auto) Cancelled Baso % (Auto) Cancelled Lymph # (Auto) Cancelled [place] # (Auto) Cancelled Eos # (Auto) Cancelled Baso # (Auto) Cancelled Abs Immat Gran (auto) Cancelled Absolute Neuts (auto) Cancelled Absolute Nucleated RBC 0.000 Nucleated RBC % (auto) 0.0 Neutrophils % (Manual) 69 Band Neutrophils % 19 H Lymphocytes % (Manual) 9 L Monocytes % (Manual) 2 Metamyelocytes % 1 Abs Neuts (Manual) 14.9 H Lymphocytes # (Manual) 1.5 Monocytes # (Manual) 0.3 Metamyelocytes # 0.2 Platelet Estimate SLIGHTLY DECREASED Plt Morphology Comment NORMAL RBC Morphology NOTED Hypochromasia 1+ Smear Tech's Comments D-Dimer VBG pH VBG pCO2 VBG pO2 VBG HCO3 VBG O2 Saturation VBG Base Excess Sodium Potassium Chloride Carbon Dioxide Anion Gap BUN Creatinine Estim Creat Clear Calc Estimated GFR Random Glucose Lactic Acid Lactic Acid Fup @ 2Hr 1.1 Calcium Phosphorus Magnesium Lactate Dehydrogenase Total Creatine Kinase C-Reactive Protein Procalcitonin Vancomycin Trough Respiratory Panel Daniel See Note Adenovirus (Rapid PCR) Not Detected B.pert (TEM-PCR) Not Detected B.parapertussis DNA PCR Not Detected C. pneumoniae DNA (PCR) Not Detected Coronavirus OC43 (PCR) Not Detected Coronavirus HKU1 (PCR) Not Detected Coronavirus 229E (PCR) Not Detected Coronavirus NL63 (PCR) Not Detected Human Metapneumovir PCR Not Detected Influenza A (RT-PCR) Not Detected Influenza B (RT-PCR) Not Detected M. pneumoniae (PCR) Not Detected Parainfluenza 1 (PCR) Not Detected Parainfluenza 2 (PCR) Not Detected Parainfluenza 3 (PCR) Not Detected Parainfluenza 4 (PCR) Not Detected RSV (PCR) Not Detected Entero/Rhino (PCR) Not Detected SARS-CoV-2 RNA (RT-PCR) Not Detected 09/23/20 09/23/20 09/23/20 10:41 12:53 12:53 WBC RBC Hgb Hct MCV MCH MCHC RDW Plt Count MPV Immature Gran % (Auto) Neut % (Auto) Lymph % (Auto) [place] % (Auto) Eos % (Auto) Baso % (Auto) Lymph # (Auto) [place] # (Auto) Eos # (Auto) Baso # (Auto) Abs Immat Gran (auto) Absolute Neuts (auto) Absolute Nucleated RBC Nucleated RBC % (auto) Neutrophils % (Manual) Band Neutrophils % Lymphocytes % (Manual) Monocytes % (Manual) Metamyelocytes % Abs Neuts (Manual) Lymphocytes # (Manual) Monocytes # (Manual) Metamyelocytes # Platelet Estimate Plt Morphology Comment RBC Morphology Hypochromasia Smear Tech's Comments D-Dimer VBG pH 7.33 VBG pCO2 42 VBG pO2 57 VBG HCO3 22 VBG O2 Saturation 87.9 VBG Base Excess -4.2 Sodium 139 Potassium 4.2 Chloride 109 H Carbon Dioxide 26 Anion Gap 8 L BUN 16 Creatinine 0.66 Estim Creat Clear Calc 79.0 Estimated GFR > 60 Random Glucose 98 Lactic Acid Lactic Acid Fup @ 2Hr Calcium 6.8 L D Phosphorus Magnesium Lactate Dehydrogenase Total Creatine Kinase C-Reactive Protein Procalcitonin Vancomycin Trough < 3.0 L Respiratory Panel Daniel Adenovirus (Rapid PCR) B.pert (TEM-PCR) B.parapertussis DNA PCR C. pneumoniae DNA (PCR) Coronavirus OC43 (PCR) Coronavirus HKU1 (PCR) Coronavirus 229E (PCR) Coronavirus NL63 (PCR) Human Metapneumovir PCR Influenza A (RT-PCR) Influenza B (RT-PCR) M. pneumoniae (PCR) Parainfluenza 1 (PCR) Parainfluenza 2 (PCR) Parainfluenza 3 (PCR) Parainfluenza 4 (PCR) RSV (PCR) Entero/Rhino (PCR) SARS-CoV-2 RNA (RT-PCR) 09/24/20 09/24/20 09/24/20 02:15 05:20 05:20 WBC 11.3 H RBC 3.07 L Hgb 9.2 L Hct 28.4 L MCV 92.5 MCH 30.0 MCHC 32.4 RDW 12.4 Plt Count 140 L MPV 11.9 Immature Gran % (Auto) 0.4 Neut % (Auto) 93.6 H Lymph % (Auto) 2.1 L [place] % (Auto) 3.8 Eos % (Auto) 0.0 Baso % (Auto) 0.1 Lymph # (Auto) 0.2 L [place] # (Auto) 0.4 Eos # (Auto) 0.0 Baso # (Auto) 0.0 Abs Immat Gran (auto) 0.04 H Absolute Neuts (auto) 10.6 H Absolute Nucleated RBC 0.000 Nucleated RBC % (auto) 0.0 Neutrophils % (Manual) Band Neutrophils % Lymphocytes % (Manual) Monocytes % (Manual) Metamyelocytes % Abs Neuts (Manual) Lymphocytes # (Manual) Monocytes # (Manual) Metamyelocytes # Platelet Estimate Plt Morphology Comment RBC Morphology Hypochromasia Smear Tech's Comments VERIFIED D-Dimer 991 VBG pH 7.43 VBG pCO2 35 VBG pO2 51 VBG HCO3 23 VBG O2 Saturation 85.9 VBG Base Excess -1.3 Sodium Potassium Chloride Carbon Dioxide Anion Gap BUN Creatinine Estim Creat Clear Calc Estimated GFR Random Glucose Lactic Acid Lactic Acid Fup @ 2Hr Calcium Phosphorus Magnesium Lactate Dehydrogenase Total Creatine Kinase C-Reactive Protein Procalcitonin Vancomycin Trough Respiratory Panel Daniel Adenovirus (Rapid PCR) B.pert (TEM-PCR) B.parapertussis DNA PCR C. pneumoniae DNA (PCR) Coronavirus OC43 (PCR) Coronavirus HKU1 (PCR) Coronavirus 229E (PCR) Coronavirus NL63 (PCR) Human Metapneumovir PCR Influenza A (RT-PCR) Influenza B (RT-PCR) M. pneumoniae (PCR) Parainfluenza 1 (PCR) Parainfluenza 2 (PCR) Parainfluenza 3 (PCR) Parainfluenza 4 (PCR) RSV (PCR) Entero/Rhino (PCR) SARS-CoV-2 RNA (RT-PCR) 09/24/20 09/24/20 09/24/20 05:20 05:20 05:20 WBC RBC Hgb Hct MCV MCH MCHC RDW Plt Count MPV Immature Gran % (Auto) Neut % (Auto) Lymph % (Auto) [place] % (Auto) Eos % (Auto) Baso % (Auto) Lymph # (Auto) [place] # (Auto) Eos # (Auto) Baso # (Auto) Abs Immat Gran (auto) Absolute Neuts (auto) Absolute Nucleated RBC Nucleated RBC % (auto) Neutrophils % (Manual) Band Neutrophils % Lymphocytes % (Manual) Monocytes % (Manual) Metamyelocytes % Abs Neuts (Manual) Lymphocytes # (Manual) Monocytes # (Manual) Metamyelocytes # Platelet Estimate Plt Morphology Comment RBC Morphology Hypochromasia Smear Tech's Comments D-Dimer VBG pH VBG pCO2 VBG pO2 VBG HCO3 VBG O2 Saturation VBG Base Excess Sodium 141 Potassium 3.1 L D Chloride 111 H Carbon Dioxide 23 Anion Gap 10 L BUN 13 Creatinine 0.59 Estim Creat Clear Calc 88.4 Estimated GFR > 60 Random Glucose 136 H D Lactic Acid 0.7 Lactic Acid Fup @ 2Hr Calcium 6.6 L Phosphorus 1.8 L Magnesium 2.1 Lactate Dehydrogenase 742 H Total Creatine Kinase 517 H C-Reactive Protein 28.94 H Procalcitonin 3.44 Vancomycin Trough Respiratory Panel Daniel Adenovirus (Rapid PCR) B.pert (TEM-PCR) B.parapertussis DNA PCR C. pneumoniae DNA (PCR) Coronavirus OC43 (PCR) Coronavirus HKU1 (PCR) Coronavirus 229E (PCR) Coronavirus NL63 (PCR) Human Metapneumovir PCR Influenza A (RT-PCR) Influenza B (RT-PCR) M. pneumoniae (PCR) Parainfluenza 1 (PCR) Parainfluenza 2 (PCR) Parainfluenza 3 (PCR) Parainfluenza 4 (PCR) RSV (PCR) Entero/Rhino (PCR) SARS-CoV-2 RNA (RT-PCR) 09/24/20 05:20 WBC RBC Hgb Hct MCV MCH MCHC RDW Plt Count MPV Immature Gran % (Auto) Neut % (Auto) Lymph % (Auto) [place] % (Auto) Eos % (Auto) Baso % (Auto) Lymph # (Auto) [place] # (Auto) Eos # (Auto) Baso # (Auto) Abs Immat Gran (auto) Absolute Neuts (auto) Absolute Nucleated RBC Nucleated RBC % (auto) Neutrophils % (Manual) Band Neutrophils % Lymphocytes % (Manual) Monocytes % (Manual) Metamyelocytes % Abs Neuts (Manual) Lymphocytes # (Manual) Monocytes # (Manual) Metamyelocytes # Platelet Estimate Plt Morphology Comment RBC Morphology Hypochromasia Smear Tech's Comments D-Dimer VBG pH 7.43 VBG pCO2 33 VBG pO2 46 VBG HCO3 21 VBG O2 Saturation 83.8 VBG Base Excess -2.6 Sodium Potassium Chloride Carbon Dioxide Anion Gap BUN Creatinine Estim Creat Clear Calc Estimated GFR Random Glucose Lactic Acid Lactic Acid Fup @ 2Hr Calcium Phosphorus Magnesium Lactate Dehydrogenase Total Creatine Kinase C-Reactive Protein Procalcitonin Vancomycin Trough Respiratory Panel Daniel Adenovirus (Rapid PCR) B.pert (TEM-PCR) B.parapertussis DNA PCR C. pneumoniae DNA (PCR) Coronavirus OC43 (PCR) Coronavirus HKU1 (PCR) Coronavirus 229E (PCR) Coronavirus NL63 (PCR) Human Metapneumovir PCR Influenza A (RT-PCR) Influenza B (RT-PCR) M. pneumoniae (PCR) Parainfluenza 1 (PCR) Parainfluenza 2 (PCR) Parainfluenza 3 (PCR) Parainfluenza 4 (PCR) RSV (PCR) Entero/Rhino (PCR) SARS-CoV-2 RNA (RT-PCR) Microbiology Microbiology Results: Microbiology 09/22/20 22:07 Urine clean catch - Clean Catch Midstream Urine Culture - Final Escherichia coli 09/22/20 21:38 Blood - Venous Blood Culture - Preliminary No growth after 24 hours. 09/22/20 21:39 Blood - Venous Blood Culture - Preliminary No growth after 24 hours. Progress Note: A&P Assessment and plan (1) Acute respiratory failure: Status: Acute (2) GERD (gastroesophageal reflux disease): Status: Acute (3) Seizure: Status: Acute (4) Osteoporosis: Status: Acute (5) Cerebral palsy: Status: Acute (6) UTI (urinary tract infection): Status: Acute (7) HCAP (healthcare-associated pneumonia): Status: Acute (8) Sepsis: Status: Acute (9) Pneumonia: Status: Acute Assessment and Plan: we will keep him on ventilator support today and probably stop sedation in the morning and if he awakens appropriately with will have a brief window on pressure support to evaluate his reserve and hopefully extubate antibiotics and steroids will remain as above along with fluid support Time Spent With Patient Time: Total time spent is greater than 50% in coordination of care (as documente d) at patient's floor/unit and/or counseling patient: Total time spent with greater than 50% in coordination of care (as documented) at patient's floor/unit and/or counseling patient:: 40
--- NOTE | 2020-09-24 10:44 | MHC.CM.PN ---
Patient currently intubated/vented in ICU. Patient is from a detention and his sister, Sharri is his guardian. Spoke with Sharri via telephone at [phone]. Patient is total care at the detention, non-ambulatory and has dysphagia at baseline. Copy of guardianship has been requested. Anticipate patient will return to his detention via BLS when medically stable. IMM explained and sent via certified mail. Continue to monitor for d/c needs.
[2020-09-24] MEDS: Albuterol/Iprat 2.5/0.5MG 3 ML AMPUL.NEB INHALE ×4 (11:25→19:46)
[2020-09-24] MEDS: LORazepam 2 MG/ML VIAL 0.5 MG IVPUSH ×2 (12:43→21:44)
[2020-09-24 13:11] LABS: Vancomycin Trough 5.3 mcg/mL (10.0-20.0)
--- NOTE | 2020-09-24 14:47 | W.PM.IDCN ---
History of Present Illness Data of Consult Service Date: 09/24/20 Requesting physician: Paolo Bean Primary Care Provider: Bonifacio Fletcher MD [facility] Reason for consult: lung infiltrates He presents to hospital with shortness of breath from intermediate He also had vomiting and temperature of 102 with coughing\. He has LLL pneumonia He is on Zosyn,day 2 Review of Systems Review of Systems: Yes Unobtainable due to mental status PMFSH Past Medical History Medical History (Updated 10/29/20 @ 14:00 by Jenna Villasenor MD) Acute respiratory failure Anxiety Aspiration pneumonia Cerebral palsy GERD (gastroesophageal reflux disease) Osteoporosis Seizure Sepsis Spastic quadriplegia Functional capacity: bed bound Family History Family history: reviewed and not pertinent Surgical History Surgical History (Updated 10/22/20 @ 16:25 by Rasheeda Brice MD) H/O tracheostomy Social History Social History Household Members: Other Household Members Other:: nursing home Housing: House Alcohol intake: unknown Smoking Status: Unknown if ever smoked Use of substances other than those prescribed or required for medical reasons: Unknown Currently Displaying Signs/Symptoms of Drug Intoxication Withdrawal: No Advance Directives: No Advance Directives Information Provided: Yes Do you have thoughts of harming others: None Do you have a plan to hurt others: No Plan Recently lost weight without trying: Unsure service: No Current occupational status: disabled Meds Allergies Allergy/AdvReac Type Severity Reaction Status Date / Time No Known Allergies Allergy Verified 09/22/20 22:17 Home Medications Medication Instructions Recorded Confirmed Type alendronate 70 mg PO Q7D 09/22/20 09/22/20 History Physical Exam Vital Signs: Vital Signs: Last Vital Signs Temp 97.5 F 09/24/20 14:00 Pulse 101 H 09/24/20 14:00 Resp 16 09/24/20 14:00 BP 112/53 L 09/24/20 14:00 Pulse Ox 96 09/24/20 14:00 Body Mass Index 17.4 Const: Other: vented HENMT: Head: Yes normal to inspection Ears: hearing grossly normal bilaterally General nose exam: Normal external nose present Mouth: Normal oral and palatal mucosa present Resp: Effort & Inspection: normal respiratory effort Cardio: Rate: regular rate Rhythm: regular rhythm GI: Palpation (GI): Soft to palpation and not firm : General: Yes no CVA tenderness Back/Spine/Pelvis: Back: no CVA tenderness Skin: General skin exam: no rashes or lesions noted Neuro: General: Unable to assess gait Gait exam (Neuro): Unable to assess gait Assessment and Plan (1) Acute respiratory failure: Qualifiers: Respiratory failure complication: hypoxia Qualified Code(s): J96.01 - Acute respiratory failure with hypoxia Status: Acute (2) UTI (urinary tract infection): Status: Acute Ecoli Await plan Results Labs CBC & Chem 7: 10/30/20 05:55 10/30/20 05:55 Labs: Short CBC 09/24/20 Range/Units 05:20 WBC 11.3 H (4.8-10.8) X10*3/uL Hgb 9.2 L (14.0-18.0) g/dl Hct 28.4 L (42-52) % Plt Count 140 L (160-400) X10*3/uL BMP 09/24/20 05:20 Sodium 141 Potassium 3.1 L D Chloride 111 H Carbon Dioxide 23 BUN 13 Creatinine 0.59 Calcium 6.6 L Cardiac Enzymes 09/24/20 Range/Units 05:20 Total Creatine Kinase 517 H (38-174) U/L Microbiology Microbiology Results: Microbiology 09/22/20 22:07 Urine clean catch - Clean Catch Midstream Urine Culture - Final Escherichia coli 09/22/20 21:38 Blood - Venous Blood Culture - Preliminary No growth after 24 hours. 09/22/20 21:39 Blood - Venous Blood Culture - Preliminary No growth after 24 hours.
[2020-09-24 23:10] LABS: COVID-19 Test Negative (Negative)
[2020-09-25] VITALS (34 sets, daily range): BP systolic 93–131; BP diastolic 44–80; PULSE 69–115; RESP 16–27; TEMP 35.8–37.9; O2SAT 92–100; BMI 15.4
[2020-09-25] MEDS: Heparin Sodium,Porcine 5,000 UNIT/ML VIAL 5000 UNIT SUBCUT ×3 (02:17→17:49)
[2020-09-25] MEDS: Piperacillin Sodium/Tazobactam 3.375 GM in 0.9 % Sodium Chloride 50 ML IV ×4 (04:23→21:59)
[2020-09-25] MEDS: propofoL 1,000 MG/100 ML VIAL 13.74 MG IVCONT ×4 (04:23→19:35)
[2020-09-25] MEDS: KCl 20 mEq in 5 % Dex/Lact Rin 20 MEQ/1,000 ML IV.SOLN 100 MEQ IVCONT (04:25)
[2020-09-25 05:44] LABS: Basophils Percent Auto 0.1 % (0-2); Hematocrit 26.7 % (42-52); Hemoglobin 8.9 g/dl (14.0-18.0); Imm Gran Abs Auto 0.07 X10*3/uL (0.00-0.03); Imm Gran Pct Auto 0.5 % (0.0-0.4); Lymphocytes Absolute Auto 0.3 X10*3/uL (1.2-4.9); Lymphocytes Percent Auto 1.9 % (20-40); MANUAL DIFF FLAG SCAN; Mean Corpuscular HGB Conc 33.3 g/dl (31.0-36.0); Mean Corpuscular Hemoglobin 30.5 pg (27.0-33.0); Mean Corpuscular Volume 91.4 fL (80-98); Mean Platelet Volume 12.1 fL (9.4-12.4); Monocytes Absolute Auto 0.6 X10*3/uL (0.1-1.2); Monocytes Percent Auto 4.1 % (2-11); Neutrophils Absolute Auto 12.7 X10*3/uL (2.0-8.3); Neutrophils Percent Auto 93.4 % (45-73); Platelet Count 153 X10*3/uL (160-400); Red Blood Count 2.92 X10*6/uL (4.60-5.80); Red Cell Distribution Width 12.5 % (11.0-16.0); SCAN SMEAR FLAG 1; White Blood Count 13.6 X10*3/uL (4.8-10.8)
[2020-09-25 05:49] LABS: SLIDE REVIEW VERIFIED
[2020-09-25 05:50] LABS: Base Excess VBG 1.7 mmol/L; HCO3 VBG 25 mmol/L; PCO2 VBG 35 mmhg; PO2 VBG 46 mmhg; pH VBG 7.47 (7.32-7.43)
[2020-09-25 06:12] LABS: Anion Gap 8 (12-20); Blood Urea Nitrogen 12 mg/dL (9-16); Carbon Dioxide 25 mmol/L (22-29); Chloride 112 mmol/L (96-108); Creatinine Clr Calc Pharmacy 95.4; Estimated Glomerular Filt Rate > 60; Glucose Random 211 mg/dL (60-115); Lactate Dehydrogenase 361 U/L (118-273); Magnesium 2.2 mg/dL (1.6-2.6); Phosphorus 1.3 mg/dL (2.7-4.5); Potassium 3.2 mmol/l (3.3-5.1); Sodium 142 mmol/L (135-145)
[2020-09-25 06:33] LABS: D Dimer 358 NG/ML
[2020-09-25 06:36] LABS: Ferritin 608 ng/mL (20-250)
[2020-09-25 07:00] LABS: Procalcitonin 1.88 ng/mL
[2020-09-25] MEDS: Sodium Chloride 0.45 % 1,000 ML 100 ML IVCONT ×2 (07:23→16:30)
[2020-09-25] MEDS: dexAMETHasone sod phosphate 4 MG/ML VIAL 6 MG IVPUSH ×2 (07:24→22:01)
[2020-09-25] MEDS: Chlorhexidine Gluc Oral Rinse 15 ML MOUTHWASH BUCCAL ×3 (07:24→22:05)
[2020-09-25] MEDS: 0.9 % Sodium Chloride Flush 3 ML SYRINGE IVFLUSH ×6 (07:25→15:21)
[2020-09-25] MEDS: Albuterol/Iprat 2.5/0.5MG 3 ML AMPUL.NEB INHALE ×4 (08:22→20:03)
--- NOTE | 2020-09-25 09:25 | PC.NURSE ---
SEDATION VACATION STARTED AT 0800. PT CHANGED OVER TO PSV 08/09 BY RT. AT ABOUT 0840 PTS TV DROPPED TO LOW 100S, 02 DESAT TO 86%, AND HR INCREASED TO 120S. NOTIFIED. RESTARTED BACK ON SEDATION AND PREVIOUS VENT SETTINGS AT 0845.
--- NOTE | 2020-09-25 10:35 | PC.NURSE ---
PTS SISTER UPDATED TODAY BY THIS RN
[2020-09-25 12:52] LABS: MRSA Nasal PCR NEGATIVE (Negative); SA Nasal PCR NEGATIVE (Negative)
--- NOTE | 2020-09-25 13:47 | PM.CCPN ---
Subjective Subjective Date of Service: 09/25/20 Interval History: 60-year-old from [facility] with cerebral palsy and poor use of all 4 extremities and non communicative with recent questions of some dysphagia and requiring either a chopped or pureed diet presenting with extensive bilateral multilobar pneumonia with acute hypoxic respiratory failure and required intubation and today he did well from a cognitive standpoint coming off sedation but developed respiratory distress on pressure support and required going back on pressure control and then resedation laboratory his white count is improving D-dimer is diminishing and was doing well clinically with an FiO2 of only 30% and minute ventilatory requirement of 8.5 liters/minute and is also notably hypophosphatemic and hypokalemic and and maybe this was a Rohan failure Physical Exam Vital Signs: Vital Signs: Last Vital Signs Temp 98.1 F 09/25/20 12:53 Pulse 94 09/25/20 12:53 Resp 23 H 09/25/20 12:53 BP 127/75 09/25/20 12:53 Pulse Ox 94 09/25/20 12:53 Body Mass Index 15.4 Const: Other: exam is unchanged neurologically intact and cognitive function seemingly okay as he was able to track and lock eyes skin is intact abdomen benign with good bowel sounds and non distension and able to tolerate feedings chest percussed equally with no clinical pleural effusion and no adventitious sounds cardiac exam with normal S1 and normal S2 and no neck vein distension and CVP measures at 9-10 and good bilateral carotid upstrokes Objective Data Labs CBC & Chem 7: 09/25/20 05:20 09/25/20 05:20 Labs: Laboratory Results - last 24 hr 09/24/20 09/25/20 09/25/20 22:29 05:20 05:20 WBC 13.6 H RBC 2.92 L Hgb 8.9 L Hct 26.7 L MCV 91.4 MCH 30.5 MCHC 33.3 RDW 12.5 Plt Count 153 L MPV 12.1 Immature Gran % (Auto) 0.5 H Neut % (Auto) 93.4 H Lymph % (Auto) 1.9 L [place] % (Auto) 4.1 Eos % (Auto) 0.0 Baso % (Auto) 0.1 Lymph # (Auto) 0.3 L [place] # (Auto) 0.6 Eos # (Auto) 0.0 Baso # (Auto) 0.0 Abs Immat Gran (auto) 0.07 H Absolute Neuts (auto) 12.7 H Absolute Nucleated RBC 0.000 Nucleated RBC % (auto) 0.0 Smear Tech's Comments VERIFIED D-Dimer 358 VBG pH VBG pCO2 VBG pO2 VBG HCO3 VBG O2 Saturation VBG Base Excess Sodium Potassium Chloride Carbon Dioxide Anion Gap BUN Creatinine Estim Creat Clear Calc Estimated GFR Random Glucose Calcium Phosphorus Magnesium Ferritin Lactate Dehydrogenase Total Creatine Kinase Procalcitonin COVID-19 (KATE) Negative COVID-19 Clin Com See Note 09/25/20 09/25/20 09/25/20 05:20 05:20 05:20 WBC RBC Hgb Hct MCV MCH MCHC RDW Plt Count MPV Immature Gran % (Auto) Neut % (Auto) Lymph % (Auto) [place] % (Auto) Eos % (Auto) Baso % (Auto) Lymph # (Auto) [place] # (Auto) Eos # (Auto) Baso # (Auto) Abs Immat Gran (auto) Absolute Neuts (auto) Absolute Nucleated RBC Nucleated RBC % (auto) Smear Tech's Comments D-Dimer VBG pH 7.47 H VBG pCO2 35 VBG pO2 46 VBG HCO3 25 VBG O2 Saturation Not Reportable VBG Base Excess 1.7 Sodium 142 Potassium 3.2 L Chloride 112 H Carbon Dioxide 25 Anion Gap 8 L BUN 12 Creatinine 0.55 Estim Creat Clear Calc 95.4 Estimated GFR > 60 Random Glucose 211 H D Calcium 7.0 L D Phosphorus 1.3 L Magnesium 2.2 Ferritin 608 H Lactate Dehydrogenase 361 H Total Creatine Kinase 831 H D Procalcitonin 1.88 COVID-19 (KATE) COVID-19 Clin Com Microbiology Microbiology Results: Microbiology 09/22/20 21:39 Blood - Venous Blood Culture - Preliminary No growth after 48 hours. 09/22/20 21:38 Blood - Venous Blood Culture - Preliminary No growth after 48 hours. 09/22/20 22:07 Urine clean catch - Clean Catch Midstream Urine Culture - Final Escherichia coli Progress Note: A&P Assessment and plan (1) Acute respiratory failure: Status: Acute (2) GERD (gastroesophageal reflux disease): Status: Acute (3) Seizure: Status: Acute (4) Osteoporosis: Status: Acute (5) Cerebral palsy: Status: Acute (6) UTI (urinary tract infection): Status: Acute (7) HCAP (healthcare-associated pneumonia): Problem details: He has LLL infiltrate He has possible gram negative and gram positive bacteria possibly He is working on weaning tomorrow WBC is decreasing Status: Acute (8) Sepsis: Status: Acute (9) Pneumonia: Status: Acute (10) Hypophosphatemia: Status: Acute (11) Hypokalemia: Status: Acute Assessment and Plan: repleting both potassium and phosphorus but currently recent dated and on pressure control and comfortable and will re-attempt sedation and ventilator weaning in the morning Time Spent With Patient Time: Total time spent is greater than 50% in coordination of care (as documented) at patient's floor/unit and/or counseling patient: Total time spent with greater than 50% in coordination of care (as documented) at patient's floor/unit and/or counseling patient:: 35
[2020-09-25] MEDS: fentaNYL citrate/NS 1,000 MCG/100 ML PLAST..BAG 2.5 MCG IVCONT (21:56)
[2020-09-26] VITALS (34 sets, daily range): BP systolic 104–156; BP diastolic 46–84; PULSE 69–108; RESP 20–25; TEMP 35.7–37.7; O2SAT 86–98; BMI 20.4; BMI 17.1
[2020-09-26] MEDS: 0.9 % Sodium Chloride Flush 3 ML SYRINGE IVFLUSH ×6 (00:16→09:08)
[2020-09-26 01:36] LABS: Vancomycin Trough 8.9 mcg/mL (10.0-20.0)
[2020-09-26] MEDS: Heparin Sodium,Porcine 5,000 UNIT/ML VIAL 5000 UNIT SUBCUT ×3 (02:50→18:28)
[2020-09-26] MEDS: Sodium Chloride 0.45 % 1,000 ML 100 ML IVCONT ×2 (02:51→12:31)
[2020-09-26] MEDS: propofoL 1,000 MG/100 ML VIAL 13.74 MG IVCONT ×2 (03:06→10:41)
[2020-09-26 04:02] LABS: Strep Pneumo Ag urine Not Detected (Not Detected)
[2020-09-26] MEDS: Piperacillin Sodium/Tazobactam 3.375 GM in 0.9 % Sodium Chloride 50 ML IV ×4 (05:03→22:57)
[2020-09-26 05:19] LABS: Basophils Percent Auto 0.1 % (0-2); Hematocrit 28.4 % (42-52); Hemoglobin 9.5 g/dl (14.0-18.0); Imm Gran Pct Auto 1.5 % (0.0-0.4); Lymphocytes Absolute Auto 0.5 X10*3/uL (1.2-4.9); Lymphocytes Percent Auto 2.6 % (20-40); MANUAL DIFF FLAG SCAN; Mean Corpuscular HGB Conc 33.5 g/dl (31.0-36.0); Mean Corpuscular Volume 92.8 fL (80-98); Mean Platelet Volume 12.2 fL (9.4-12.4); Monocytes Absolute Auto 0.8 X10*3/uL (0.1-1.2); Monocytes Percent Auto 3.7 % (2-11); Neutrophils Absolute Auto 18.9 X10*3/uL (2.0-8.3); Neutrophils Percent Auto 92.1 % (45-73); Platelet Count 198 X10*3/uL (160-400); Red Blood Count 3.06 X10*6/uL (4.60-5.80); SCAN SMEAR FLAG 1; White Blood Count 20.5 X10*3/uL (4.8-10.8)
[2020-09-26 05:33] LABS: Base Excess VBG -3.4 mmol/L; HCO3 VBG 21 mmol/L; Oxygen Saturation VBG 84.2 %; PCO2 VBG 34 mmhg; PO2 VBG 47 mmhg
[2020-09-26 05:36] LABS: SLIDE REVIEW VERIFIED
[2020-09-26 06:04] LABS: Blood Urea Nitrogen 16 mg/dL (9-16); Creatinine Clr Calc Pharmacy 89.1; Estimated Glomerular Filt Rate > 60; Glucose Random 125 mg/dL (60-115); Magnesium 2.3 mg/dL (1.6-2.6)
[2020-09-26 06:21] LABS: Anion Gap 14 (12-20); Carbon Dioxide 20 mmol/L (22-29); Chloride 112 mmol/L (96-108); Sodium 142 mmol/L (135-145)
[2020-09-26 06:41] LABS: Calcium 6.6 mg/dL (8.4-10.2)
[2020-09-26] MEDS: Albuterol/Iprat 2.5/0.5MG 3 ML AMPUL.NEB INHALE ×4 (07:50→19:36)
--- NOTE | 2020-09-26 08:13 | P.PNCC_ITS ---
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 and cerebral palsy who is wheelchair-bound and losing arm coordination and developing some increasing dysphagia presents with acute hypoxic respiratory failure and pneumonia either healthcare related versus an aspiration picture and has been doing well on an FiO2 of 30% with minute ventilatory requirements about 8 liters/minute and therefore qualifying both to evaluate cognitive function off sedation and if adequate for pressure support trial to come off the ventilator both potassium and phosphate have been repleted and maybe he will have Jennifer better Rohan strength today as we try to wean Physical Exam Vital Signs: Vital Signs: Last Vital Signs Temp 97.7 F 09/26/20 07:00 Pulse 70 09/26/20 07:51 Resp 20 09/26/20 07:00 BP 125/69 09/26/20 07:00 Pulse Ox 94 09/26/20 07:00 Body Mass Index 20.4 Const: Other: the neurological E no difference in tone bilaterally and cranial nerves intact skin was no wounds no decubiti I no acrocyanosis cardiac exam with normal S1 normal S2 and a CVP of about 8-9 with no neck vein distension and good bilateral carotid upstrokes chest because is fairly equally abdomen is benign belly soft nondistended with good bowel sounds Objective Data Labs CBC & Chem 7: 09/26/20 04:50 09/26/20 04:50 Labs: Laboratory Results - last 24 hr 09/23/20 09/24/20 09/26/20 10:31 15:05 01:01 WBC RBC Hgb Hct MCV MCH MCHC RDW Plt Count MPV Immature Gran % (Auto) Neut % (Auto) Lymph % (Auto) [place] % (Auto) Eos % (Auto) Baso % (Auto) Lymph # (Auto) [place] # (Auto) Eos # (Auto) Baso # (Auto) Abs Immat Gran (auto) Absolute Neuts (auto) Absolute Nucleated RBC Nucleated RBC % (auto) Smear Tech's Comments VBG pH VBG pCO2 VBG pO2 VBG HCO3 VBG O2 Saturation VBG Base Excess Sodium Potassium Chloride Carbon Dioxide Anion Gap BUN Creatinine Estim Creat Clear Calc Estimated GFR Random Glucose Calcium Phosphorus Magnesium Nasal Screen MRSA (PCR) NEGATIVE Nasal S. aureus Screen NEGATIVE Nasal MRSA/S.aureus Interp SEE NOTE Vancomycin Trough 8.9 L Ur Strep pneumoniae Ag Not Detected 09/26/20 09/26/20 09/26/20 04:50 04:50 04:50 WBC 20.5 H RBC 3.06 L Hgb 9.5 L Hct 28.4 L MCV 92.8 MCH 31.0 MCHC 33.5 RDW 13.0 Plt Count 198 D MPV 12.2 Immature Gran % (Auto) 1.5 H Neut % (Auto) 92.1 H Lymph % (Auto) 2.6 L [place] % (Auto) 3.7 Eos % (Auto) 0.0 Baso % (Auto) 0.1 Lymph # (Auto) 0.5 L [place] # (Auto) 0.8 Eos # (Auto) 0.0 Baso # (Auto) 0.0 Abs Immat Gran (auto) 0.30 H Absolute Neuts (auto) 18.9 H Absolute Nucleated RBC 0.000 Nucleated RBC % (auto) 0.0 Smear Tech's Comments VERIFIED VBG pH 7.40 VBG pCO2 34 VBG pO2 47 VBG HCO3 21 VBG O2 Saturation 84.2 VBG Base Excess -3.4 Sodium 142 Potassium 4.0 D Chloride 112 H Carbon Dioxide 20 L Anion Gap 14 BUN 16 Creatinine 0.52 Estim Creat Clear Calc 89.1 Estimated GFR > 60 Random Glucose 125 H D Calcium 6.6 L Phosphorus 3.0 Magnesium 2.3 Nasal Screen MRSA (PCR) Nasal S. aureus Screen Nasal MRSA/S.aureus Interp Vancomycin Trough Ur Strep pneumoniae Ag Microbiology Microbiology Results: Microbiology 09/22/20 21:39 Blood - Venous Blood Culture - Preliminary No growth after 48 hours. 09/22/20 21:38 Blood - Venous Blood Culture - Preliminary No growth after 48 hours. 09/22/20 22:07 Urine clean catch - Clean Catch Midstream Urine Culture - Final Escherichia coli Progress Note: A&P Assessment and plan (1) Hypokalemia: Status: Acute (2) Hypophosphatemia: Status: Acute (3) Acute respiratory failure: Status: Acute (4) GERD (gastroesophageal reflux disease): Status: Acute (5) Seizure: Status: Acute (6) Osteoporosis: Status: Acute (7) Cerebral palsy: Status: Acute (8) UTI (urinary tract infection): Status: Acute (9) Pneumonia: Status: Acute (10) Sepsis: Status: Acute (11) HCAP (healthcare-associated pneumonia): Problem details: He has LLL infiltrate He has possible gram negative and gram positive bacteria possibly He is working on weaning tomorrow WBC is decreasing Status: Acute Assessment and Plan: so we continue ventilator support but will attempt pressure support trial if cognitive response is adequate Time Spent With Patient Time: Total time spent is greater than 50% in coordination of care (as documented) at patient's floor/unit and/or counseling patient: Total time spent with greater than 50% in coordination of care (as documented) at patient's floor/unit and/or counseling patient:: 35
[2020-09-26] MEDS: dexAMETHasone sod phosphate 4 MG/ML VIAL 6 MG IVPUSH ×2 (09:09→20:14)
[2020-09-26] MEDS: Chlorhexidine Gluc Oral Rinse 15 ML MOUTHWASH BUCCAL (09:09)
--- NOTE | 2020-09-26 10:03 | XR_ITS ---
EXAMINATION: PORTABLE CHEST 1 VIEW CLINICAL INFORMATION: DESAT 02 . COMPARISON: 09/24/2020. TECHNIQUE: Portable frontal view of the chest was obtained. FINDINGS: Endotracheal tube tip approximately 3 cm above the milind. Nasogastric tube tip below level the diaphragm with side port near the expected GE junction. This could be slightly advanced if needed. Right adjacent venous catheter tip overlying the mid right atrium. Lungs are hypoexpanded. No superimposed focal infiltrate, effusion, edema, or pneumothorax. Cardiac and mediastinal silhouettes are within normal limits for size. No acute bony abnormality. XR/XR chest 1V IMPRESSION: Intubated with tubes and lines as described. No focal airspace disease or consolidation. No overt edema currently.
[2020-09-26 10:26] LABS: Pt Ventilation O2% 100%
[2020-09-26 10:31] LABS: ABG PCO2 29 mmhg (32-45); Base Excess ABG -4.3; HCO3 ABG 19 mmol/l (22-26); PO2 ABG > 450 mmhg (83-108); pH ABG 7.44 (7.35-7.45)
[2020-09-26 10:32] LABS: Oxygen Saturation ABG 98.8 %
[2020-09-26] MEDS: fentaNYL citrate/NS 1,000 MCG/100 ML PLAST..BAG 10 MCG IVCONT ×3 (11:28→23:46)
[2020-09-26] MEDS: Midazolam HCl/NS 50 MG/50 ML PLAST..BAG IVCONT (11:37)
[2020-09-26] MEDS: Doxycycline Hyclate 100 MG in 0.9 % Sodium Chloride 250 ML 166.67 MG IV ×2 (12:01→23:59)
--- NOTE | 2020-09-26 14:23 | MHC.CM.PN ---
Pt remains in ICU on ventilatory support: active weaning in progress: pt from [facility] and the d/c plan is for a return should he exhibit no medical needs following hospitalization. CM to follow
--- NOTE | 2020-09-26 16:22 | PC.NURSE ---
DURING ORAL CARE THIS AM PT DESAT TO 84%, INLINE AND ORAL SUCTIONED MULTIPLE TIMES WITHOUT SUCCUESS. FI02 INCREASED FROM 30% TO 100%. MD, RT, AND RN BEDSIDE. STAT CXR ORDERED AND OBTAINED. ABGS ORDERED AND OBTAINED BY RT. SAT INCREASED TO 98%. FENTANYL GTT INCREASED FROM 50 MCG/HR TO 100 MCG/HR. SEDATION CHANGED: PROPOFOL D/C AND VERSED STARTED AT 2MG/HR. VENT SETTINGS CHANGED TO PC 15 PEEP 5 FIO2 100%, BUT ABLE TO DECREASE FIO2 TO 70%. SPUTUM SAMPLE COLLECTED AND SENT FOR CULTURE. POSITIVE C&G, PUPILS EQUAL AND REACTIVE, UNABLE TO FOLLOW COMMANDS. SR-ST ON TELE. LS COARSE IN UPPER AND DIMINISHED IN BASES. ACTIVE BS, ONLY SMEARING FOR BM. ERWIN 25-60 ML/HR. GENERALIZED NON-PITTING EDEMA NOTED. L>R FOREARM EDEMA, NOTED TO BE IMPROVING THROUGHOUT SHIFT. BATHED, Q2H REPO WITH PREVALON ASSIST: PILLOWS, WEDGES AND HANDROLLS USED, BARRIER CREAM APPLIED. PTS SISTER UPDATED BY THIS RN. SISTER STATES, PT LIKES TO GO BY SKIP.
[2020-09-27] VITALS (35 sets, daily range): BP systolic 99–134; BP diastolic 47–117; PULSE 86–137; RESP 18–22; TEMP 35.7–38.1; O2SAT 30–98; BMI 17.1
[2020-09-27] MEDS: Sodium Chloride 0.45 % 1,000 ML 100 ML IVCONT
[2020-09-27] MEDS: 0.9 % Sodium Chloride Flush 3 ML SYRINGE IVFLUSH ×6 (00:01→23:42)
[2020-09-27] MEDS: Piperacillin Sodium/Tazobactam 3.375 GM in 0.9 % Sodium Chloride 50 ML IV (02:55)
[2020-09-27] MEDS: Heparin Sodium,Porcine 5,000 UNIT/ML VIAL 5000 UNIT SUBCUT ×3 (02:56→18:52)
[2020-09-27 06:25] LABS: Basophils Percent Auto 0.1 % (0-2); Hematocrit 27.3 % (42-52); Imm Gran Abs Auto 0.14 X10*3/uL (0.00-0.03); Imm Gran Pct Auto 1.2 % (0.0-0.4); Lymphocytes Absolute Auto 0.4 X10*3/uL (1.2-4.9); Lymphocytes Percent Auto 3.6 % (20-40); MANUAL DIFF FLAG SCAN; Mean Corpuscular Hemoglobin 30.8 pg (27.0-33.0); Mean Corpuscular Volume 93.5 fL (80-98); Monocytes Absolute Auto 0.8 X10*3/uL (0.1-1.2); Monocytes Percent Auto 6.5 % (2-11); Neutrophils Absolute Auto 10.2 X10*3/uL (2.0-8.3); Neutrophils Percent Auto 88.6 % (45-73); Platelet Count 185 X10*3/uL (160-400); Red Blood Count 2.92 X10*6/uL (4.60-5.80); Red Cell Distribution Width 12.8 % (11.0-16.0); SCAN SMEAR FLAG 1; White Blood Count 11.5 X10*3/uL (4.8-10.8)
[2020-09-27 06:40] LABS: Base Excess VBG -2.6 mmol/L; HCO3 VBG 22 mmol/L; Oxygen Saturation VBG 92.2 %; PCO2 VBG 38 mmhg; PO2 VBG 66 mmhg; pH VBG 7.39 (7.32-7.43)
[2020-09-27 06:48] LABS: SLIDE REVIEW VERIFIED
[2020-09-27 07:09] LABS: Anion Gap 15 (12-20); Blood Urea Nitrogen 15 mg/dL (9-16); Calcium 6.7 mg/dL (8.4-10.2); Carbon Dioxide 18 mmol/L (22-29); Chloride 108 mmol/L (96-108); Creatinine Clr Calc Pharmacy 109.5; Estimated Glomerular Filt Rate > 60; Glucose Random 132 mg/dL (60-115); Magnesium 2.5 mg/dL (1.6-2.6); Phosphorus 2.3 mg/dL (2.7-4.5); Potassium 3.6 mmol/l (3.3-5.1); Sodium 137 mmol/L (135-145)
[2020-09-27] MEDS: Albuterol/Iprat 2.5/0.5MG 3 ML AMPUL.NEB INHALE ×4 (07:27→19:54)
[2020-09-27] MEDS: fentaNYL citrate/NS 1,000 MCG/100 ML PLAST..BAG 10 MCG IVCONT (08:36)
[2020-09-27] MEDS: Calcium Gluconate/NaCl,Iso-Osm 2 GM/100 ML PLAST..BAG IV (09:44)
[2020-09-27] MEDS: Famotidine/PF 20 MG/2 ML VIAL IVPUSH (09:45)
[2020-09-27] MEDS: Albumin Human 25 % 100 ML IV ×3 (09:45→20:53)
[2020-09-27] MEDS: Potassium Phosphate 30 MMOL in 0.9 % Sodium Chloride 500 ML 85 MMOL IV (10:21)
--- NOTE | 2020-09-27 10:23 | MHC.CLN ---
F/U RECOMMEND OSMOLITE AT MAX GOAL RATE 35CC/HR WITH 20CC FREE WATER FLUSH Q SHIFT TO PROVIDE 1260KCALS (27KCALS/KG), 52.6G PROTEIN (1.1G/KG), 1320CC TOTAL WATER FROM FORMULA AND FLUSHES (28.6CC/KG) MONITOR RESIDUALS, TOLERANCE AND LYTES
[2020-09-27] MEDS: Furosemide 40 MG/4 ML VIAL IVPUSH ×3 (10:55→23:57)
--- NOTE | 2020-09-27 11:21 | MHC.CM.PN ---
Patient remains intubated/vented in ICU. Patient is from a assisted. His sister, Sharri is his guardian. Anticipate patient will return to assisted when medically stable. Copy of guardianship has been requested from PCP and assisted. Continue to monitor for d/c needs.
[2020-09-27] MEDS: Doxycycline Hyclate 100 MG in 0.9 % Sodium Chloride 250 ML 166.67 MG IV ×2 (13:05→23:47)
--- NOTE | 2020-09-27 13:22 | P.PNCC_ITS ---
Subjective Subjective Date of Service: 09/27/20 Interval History: 60-year-old gentleman with underlying history of developmental delay, cerebral palsy, spastic quadriplegia, seizure disorder, dysphagia, wheelchair-bound, nursing home resident admitted on 09/23/2020 with hypoxic respiratory failure requiring intubation and ventilatory support. COVID-19 negative. Treated for community-acquired pneumonia. Physical Exam Vital Signs: Vital Signs: Last Vital Signs Temp 98.2 F 09/27/20 12:00 Pulse 137 H 09/27/20 12:01 Resp 20 09/27/20 12:00 BP 105/55 L 09/27/20 12:00 Pulse Ox 95 09/27/20 12:00 Body Mass Index 17.1 Const: General: no acute distress and other ( sedated on the vent) Eyes: Sclerae: sclerae normal Neck: Neck: Yes no lymphadenopathy, Yes trachea midline and Yes supple Resp: Auscultation: clear to auscultation bilaterally Cardio: Rate: tachycardic Rhythm: regular rhythm Heart sounds: no gallops, no murmurs and no rubs GI: Palpation (GI): Soft to palpation and Other GI palpation findings present ( Nontender) Auscultation: normal bowel sounds Extrem: General: No clubbing, No cyanosis and Yes edema ( 1+ bilateral) Objective Data Labs CBC & Chem 7: 09/27/20 05:27 09/27/20 05:27 Labs: Laboratory Results - last 24 hr 09/27/20 09/27/20 09/27/20 05:27 05:27 05:27 WBC 11.5 H RBC 2.92 L Hgb 9.0 L Hct 27.3 L MCV 93.5 MCH 30.8 MCHC 33.0 RDW 12.8 Plt Count 185 MPV 12.0 Immature Gran % (Auto) 1.2 H Neut % (Auto) 88.6 H Lymph % (Auto) 3.6 L [place] % (Auto) 6.5 Eos % (Auto) 0.0 Baso % (Auto) 0.1 Lymph # (Auto) 0.4 L [place] # (Auto) 0.8 Eos # (Auto) 0.0 Baso # (Auto) 0.0 Abs Immat Gran (auto) 0.14 H Absolute Neuts (auto) 10.2 H Absolute Nucleated RBC 0.000 Nucleated RBC % (auto) 0.0 Smear Tech's Comments VERIFIED VBG pH 7.39 VBG pCO2 38 VBG pO2 66 VBG HCO3 22 VBG O2 Saturation 92.2 VBG Base Excess -2.6 Sodium 137 Potassium 3.6 Chloride 108 Carbon Dioxide 18 L Anion Gap 15 BUN 15 Creatinine 0.47 L Estim Creat Clear Calc 109.5 Estimated GFR > 60 Random Glucose 132 H Calcium 6.7 L Phosphorus 2.3 L Magnesium 2.5 Microbiology Microbiology Results: Microbiology 09/26/20 15:00 Sputum - Suctioned Gram Stain - Final 09/26/20 15:00 Sputum - Suctioned Sputum Culture - Preliminary Culture in progress. 09/22/20 21:39 Blood - Venous Blood Culture - Preliminary No growth after 48 hours. 09/22/20 21:38 Blood - Venous Blood Culture - Preliminary No growth after 48 hours. 09/22/20 22:07 Urine clean catch - Clean Catch Midstream Urine Culture - Final Escherichia coli Progress Note: A&P Assessment and plan (1) Acute respiratory failure: Status: Acute Assessment and Plan: Assessment: 60-[facility] resident secondary to underlying cerebral palsy and spastic quadriplegia admitted on 09/23/2020 with acute hypoxic respiratory failure requiring ventilatory support. Plan: Neuro: Underlying seizure disorder, will restart on valproic acid. Cardiac: No acute issues. Will obtain 2D echocardiogram to evaluate for possible underlying diastolic dysfunction. Pulmonary: Acute hypoxic respiratory failure secondary to community-acquired pneumonia. Cultures sterile to date. No concern for gram-negative organisms, will continue on doxycycline for total antibiotic course of 7 days. Continue to titrate off ventilatory support as tolerated. Renal: No acute issues. Endo: No acute issues. GI: No acute issues. ID: Community-acquired pneumonia. Continue doxycycline as per respiratory section. Heme/Onc: No acute issues. Psych: No acute issues. Miscellaneous: No acute issues. Prophylaxis: Heparin, famotidine Diet: tube feeds Critical care time spent: 60 minutes (2) Cerebral palsy: Status: Acute (3) Pneumonia: Status: Acute Time Spent With Patient Total time spent with greater than 50% in coordination of care (as documented) at patient's floor/unit and/or counseling patient:: 0 Critical Care Time Critical Care Time (minutes): 60
--- NOTE | 2020-09-27 14:00 | PC.NURSE ---
pt sedated on fentanyl currently running at 50mcg/hr, versed d/c this afternoon, levo off at 1100, tube feeds started at 20ml/hr, goal of 35, 0 residual, pt easily arousable upon position changed, bathed, repositioned q2h, increased output via go post lasix administration, scant amt of secretions noted, pt remains on pressure control settings, will call sister for update
--- NOTE | 2020-09-27 14:09 | PC.NURSE ---
titrated fi02 to 50% at this time
[2020-09-27] MEDS: fentaNYL citrate/NS 1,000 MCG/100 ML PLAST..BAG 15 MCG IVCONT ×2 (16:37→23:33)
[2020-09-27 18:46] LABS: Anion Gap 10 (12-20); Blood Urea Nitrogen 15 mg/dL (9-16); Calcium 7.8 mg/dL (8.4-10.2); Carbon Dioxide 27 mmol/L (22-29); Chloride 105 mmol/L (96-108); Creatinine Clr Calc Pharmacy 91.9; Estimated Glomerular Filt Rate > 60; Glucose Random 120 mg/dL (60-115); Potassium 3.8 mmol/l (3.3-5.1); Sodium 138 mmol/L (135-145)
[2020-09-27] MEDS: Potassium Chloride/H20 20 MEQ/100 ML PIGGYBACK 100 MEQ IV (19:25)
--- NOTE | 2020-09-27 23:18 | PC.NURSE ---
pt desated to 73 & suctioned and cuff checked 100& on vent with no improvement in sats/pt bagged for a few minutes with improvement in sats to 95 96& placed back on vent sats on 100&
[2020-09-28] VITALS (31 sets, daily range): BP systolic 101–149; BP diastolic 44–79; PULSE 98–130; RESP 12–24; TEMP 38–39.5; O2SAT 90–99; BMI 17.7
--- NOTE | 2020-09-28 | XR_ITS ---
EXAMINATION: XR CHEST CLINICAL INFORMATION: Status post ET tube placement COMPARISON: 09/26/2020 TECHNIQUE: Frontal view of the chest was obtained. The film is suboptimal because of rotation. FINDINGS: An ET tube is present with its tip about 1.5 cm above the milind. Right IJ catheter tip in the right atrium. There is been worsening of appearances with increase opacity seen at both lung bases compared with the prior study suggesting either edema or infiltrates. Small bilateral pleural effusions appear to be present as well. XR/XR chest 1V IMPRESSION: ET tube about 1.5 cm above the milind. Worsening in lung opacities as described above suggesting either CHF with edema or bilateral lower lobe infiltrates/consolidations. New small pleural effusions.
--- NOTE | 2020-09-28 | XR_ITS ---
EXAMINATION: XR ABDOMEN KUB CLINICAL INDICATION: Orogastric tube placement COMPARISON: None TECHNIQUE: AP view of the abdomen. FINDINGS: NG tube has its tip in the fundus of the stomach. A large stool ball is present in the rectum. Mild gaseous distention of some nondilated colon with air and some nondilated small bowel. There is a scoliosis convex to the right. XR/XR abdomen 1V IMPRESSION: NG tube is in the stomach.
[2020-09-28] MEDS: Heparin Sodium,Porcine 5,000 UNIT/ML VIAL 5000 UNIT SUBCUT ×3 (03:11→19:21)
[2020-09-28] MEDS: Albumin Human 25 % 100 ML IV (03:12)
--- NOTE | 2020-09-28 04:13 | PC.NURSE ---
care assumed 23:15...sao2 72-70%...rr 34-36...(+) jvd...fluid (+) approx 8 liters despite previous lasix 09/27..icu pa present...stat lasix 40mg iv x1...100% fio2 via vent...diuresed large amount urine...fio2 weaned to 35% and sao2 98-99%...remains tachycardic hr 116-122...per pa hr goal <125
--- NOTE | 2020-09-28 05:04 | PC.NURSE ---
AWAKE...ANXIOUS...DOES NOT FOLLOW COMMANDS...S.TACH HR 124-126...TEMP 101.1 CORE...ICU PA PRESENT...FOR VERSED IV X1 & TYLENOL VIA OG-TUBE PER PA
[2020-09-28] MEDS: fentaNYL citrate/NS 1,000 MCG/100 ML PLAST..BAG 15 MCG IVCONT (05:14)
[2020-09-28] MEDS: Acetaminophen Oral Liquid 650 MG/20.3 ML SOLUTION OG-TUBE ×2 (05:15→18:40)
[2020-09-28] MEDS: Midazolam HCl/PF 2 MG/2 ML VIAL IVPUSH (05:15)
[2020-09-28 06:05] LABS: MANUAL DIFF FLAG NO
[2020-09-28 06:08] LABS: Basophils Percent Auto 0.1 % (0-2); Hematocrit 24.3 % (42-52); Imm Gran Abs Auto 0.17 X10*3/uL (0.00-0.03); Imm Gran Pct Auto 1.1 % (0.0-0.4); Lymphocytes Absolute Auto 1.1 X10*3/uL (1.2-4.9); Lymphocytes Percent Auto 7.4 % (20-40); Mean Corpuscular HGB Conc 32.9 g/dl (31.0-36.0); Mean Corpuscular Hemoglobin 31.1 pg (27.0-33.0); Mean Corpuscular Volume 94.6 fL (80-98); Mean Platelet Volume 11.3 fL (9.4-12.4); Monocytes Absolute Auto 1.2 X10*3/uL (0.1-1.2); Monocytes Percent Auto 8.1 % (2-11); NRBC Pct Auto 0.1 /100WBC (0.0-0.2); Neutrophils Absolute Auto 12.6 X10*3/uL (2.0-8.3); Neutrophils Percent Auto 83.3 % (45-73); Platelet Count 168 X10*3/uL (160-400); Red Blood Count 2.57 X10*6/uL (4.60-5.80); White Blood Count 15.1 X10*3/uL (4.8-10.8)
[2020-09-28 06:25] LABS: Base Excess VBG 6.3 mmol/L; HCO3 VBG 32 mmol/L; Oxygen Saturation VBG 79.5 %; PCO2 VBG 51 mmhg; PO2 VBG 42 mmhg; pH VBG 7.41 (7.32-7.43)
[2020-09-28 06:42] LABS: Alanine Aminotransferase 171 U/L (0-40); Alkaline Phosphatase 40 U/L (39-117); Anion Gap 10 (12-20); Aspartate Amino Transferase 38 U/L (5-37); Bilirubin Total 0.5 mg/dL (0.0-1.0); Blood Urea Nitrogen 17 mg/dL (9-16); Calcium 8.3 mg/dL (8.4-10.2); Carbon Dioxide 32 mmol/L (22-29); Chloride 104 mmol/L (96-108); Estimated Glomerular Filt Rate > 60; Glucose Random 101 mg/dL (60-115); Magnesium 2.2 mg/dL (1.6-2.6); Phosphorus 2.2 mg/dL (2.7-4.5); Potassium 3.6 mmol/l (3.3-5.1); Sodium 142 mmol/L (135-145); Total Protein 5.6 g/dL (6.5-8.0)
[2020-09-28] MEDS: Albuterol/Iprat 2.5/0.5MG 3 ML AMPUL.NEB INHALE ×4 (07:54→19:41)
[2020-09-28] MEDS: Famotidine/PF 20 MG/2 ML VIAL IVPUSH (08:29)
[2020-09-28] MEDS: 0.9 % Sodium Chloride Flush 3 ML SYRINGE IVFLUSH ×2 (08:30→15:59)
--- NOTE | 2020-09-28 09:35 | MHC.CM.PN ---
Patient remains intubated/vented in ICU. Per Dr Canada, possible extubation today. Anticipate patient will return to his intermediate when medically stable. Continue to monitor for d/c needs.
--- NOTE | 2020-09-28 09:40 | P.CDIC_ITS ---
CDI Concurrent Query Service Date: 09/28/20 Documentation Clarification: Please clarify if you are treating a proba ble/suspected/likely or confirmed: Protein calorie malnutrition mild, moderate or severe Please specify if known Provider Response: Moderate Protein-Calorie Malnutrition PLEASE DO NOT DELETE/MODIFY EXISTING CONTENT Additional information is needed in order to code to the highest accuracy and appropriate Severity of Illness (SOI). Please clarify the information noted below in your progress notes and discharge summary. Risk Factors/Clinical Indicators/Treatments Nutrition assessment notes moderately malnourished. BMI 17.1 Recommends osmolite at max. wheelchair bound. CDS: Jackie Washington CCS, CDIS Contact Number: [phone] Please Review the information above and exercise your independent professional judgment in responding to the query. If you concur, pleas document in the PROGRESS NOTES and DISCHARGE SUMMARY. If you do not agree with the query, please document in the query above. THIS QUERY IS PART OF THE PERMANENT MEDICAL RECORD
[2020-09-28] MEDS: Potassium Phosphate 30 MMOL in 0.9 % Sodium Chloride 500 ML 85 MMOL IV (09:57)
[2020-09-28] MEDS: Doxycycline Hyclate 100 MG in 0.9 % Sodium Chloride 250 ML 166.67 MG IV ×2 (10:56→23:35)
[2020-09-28] MEDS: Metoprolol Tartrate 5 MG/5 ML VIAL IVPUSH (10:57)
[2020-09-28] MEDS: bisacodyL 10 MG SUPP.RECT PR (14:13)
[2020-09-28] MEDS: ondansetron HCL 4 MG/2 ML VIAL IVPUSH (15:58)
--- NOTE | 2020-09-28 16:01 | P.PNCC_ITS ---
Subjective Subjective Date of Service: 09/28/20 Interval History: 60-year-old gentleman with underlying history of developmental delay, cerebral palsy, spastic quadriplegia, seizure disorder, dysphagia, wheelchair-bound, [facility] resident admitted on 09/23/2020 with hypoxic respiratory failure requiring intubation and ventilatory support. COVID-19 negative. Treated for community-acquired pneumonia. No events overnight. Extubated this a.m. Physical Exam Vital Signs: Vital Signs: Last Vital Signs Temp 101.1 F H 09/28/20 13:00 Pulse 120 H 09/28/20 13:54 Resp 16 09/28/20 13:54 BP 149/79 H 09/28/20 13:54 Pulse Ox 93 09/28/20 13:54 Body Mass Index 17.7 Const: General: no acute distress, alert and awake Eyes: Sclerae: sclerae normal EOM: EOMs intact bilaterally Neck: Neck: Yes no lymphadenopathy, Yes trachea midline and Yes supple Resp: Effort & Inspection: normal respiratory effort and no respiratory dis tress Auscultation: crackles ( Bibasilar crackles) Cardio: Rate: regular rate Rhythm: regular rhythm Heart sounds: no gallops, no murmurs and no rubs GI: Palpation (GI): Soft to palpation and Other GI palpation findings present ( Nontender) Auscultation: normal bowel sounds Extrem: General: No clubbing, No cyanosis and Yes edema ( trace bilateral) Objective Data Labs CBC & Chem 7: 09/28/20 05:27 09/28/20 05:27 Labs: Laboratory Results - last 24 hr 09/27/20 09/28/20 09/28/20 17:54 05:27 05:27 WBC 15.1 H RBC 2.57 L Hgb 8.0 L Hct 24.3 L MCV 94.6 MCH 31.1 MCHC 32.9 RDW 13.0 Plt Count 168 MPV 11.3 Immature Gran % (Auto) 1.1 H Neut % (Auto) 83.3 H Lymph % (Auto) 7.4 L [place] % (Auto) 8.1 Eos % (Auto) 0.0 Baso % (Auto) 0.1 Lymph # (Auto) 1.1 L [place] # (Auto) 1.2 Eos # (Auto) 0.0 Baso # (Auto) 0.0 Abs Immat Gran (auto) 0.17 H Absolute Neuts (auto) 12.6 H Absolute Nucleated RBC 0.020 H Nucleated RBC % (auto) 0.1 VBG pH VBG pCO2 VBG pO2 VBG HCO3 VBG O2 Saturation VBG Base Excess Sodium 138 142 Potassium 3.8 3.6 Chloride 105 104 Carbon Dioxide 27 32 H Anion Gap 10 L 10 L BUN 15 17 H Creatinine 0.56 0.62 Estim Creat Clear Calc 91.9 83.0 Estimated GFR > 60 > 60 Random Glucose 120 H 101 Calcium 7.8 L D 8.3 L D Phosphorus 2.2 L Magnesium 2.2 Total Bilirubin 0.5 AST 38 H ALT 171 H Alkaline Phosphatase 40 D Total Protein 5.6 L Albumin 4.0 09/28/20 05:27 WBC RBC Hgb Hct MCV MCH MCHC RDW Plt Count MPV Immature Gran % (Auto) Neut % (Auto) Lymph % (Auto) [place] % (Auto) Eos % (Auto) Baso % (Auto) Lymph # (Auto) [place] # (Auto) Eos # (Auto) Baso # (Auto) Abs Immat Gran (auto) Absolute Neuts (auto) Absolute Nucleated RBC Nucleated RBC % (auto) VBG pH 7.41 VBG pCO2 51 VBG pO2 42 VBG HCO3 32 VBG O2 Saturation 79.5 VBG Base Excess 6.3 Sodium Potassium Chloride Carbon Dioxide Anion Gap BUN Creatinine Estim Creat Clear Calc Estimated GFR Random Glucose Calcium Phosphorus Magnesium Total Bilirubin AST ALT Alkaline Phosphatase Total Protein Albumin Microbiology Microbiology Results: Microbiology 09/26/20 15:00 Sputum - Suctioned Gram Stain - Final 09/26/20 15:00 Sputum - Suctioned Sputum Culture - Preliminary Gram negative ana 09/22/20 21:39 Blood - Venous Blood Culture - Final No growth after 5 days. 09/22/20 21:38 Blood - Venous Blood Culture - Final No growth after 5 days. 09/22/20 22:07 Urine clean catch - Clean Catch Midstream Urine Culture - Final Escherichia coli Progress Note: A&P Assessment and plan (1) Pneumonia: Status: Acute Assessment and Plan: Assessment: 60-year-old gentleman [facility] resident secondary to underlying cerebral palsy and spastic quadriplegia admitted on 09/23/2020 with acute hypoxic respiratory failure requiring ventilatory support. Plan: Neuro: Underlying seizure disorder, continue on valproic acid. Cardiac: No acute issues. 2D echo is pending. Pulmonary: Acute hypoxic respiratory failure secondary to aspiration pneumonia. Cultures sterile to date. Extubated today. Remains high aspiration risk. Continue to titrate off supplemental oxygen as tolerated. Renal: No acute issues. Endo: No acute issues. GI: No acute issues. ID: Aspiration pneumonia Heme/Onc: No acute issues. Psych: No acute issues. Miscellaneous: No acute issues. Prophylaxis: Heparin Diet: nothing by mouth Critical care time spent: 90 minutes (2) Acute respiratory failure: Status: Acute (3) Cerebral palsy: Status: Acute Time Spent With Patient Time: Total time spent is greater than 50% in coordination of care (as documented) at patient's floor/unit and/or counseling patient: Total time spent with greater than 50% in coordination of care (as documented) at patient's floor/unit and/or counseling patient:: 0 Critical Care Time Critical Care Time (minutes): 90
--- NOTE | 2020-09-28 17:02 | W.PM.CCHP ---
Procedures Intubation Intubation Comments: Patient with acute hypoxic episode secondary to an aspiration event requiring emergent intubation. Intubated with 7.5 cuffed ET tube under glide scope guidance with no immediate complications. Chest x-ray for ET tube position is pending. Consent for Procedure: Emergent-no informed consent obtained Sedative: propofol Mg given: 100 Laryngoscope: fiber optic video scope ET tube size: 7.5 ET tube uncuffed: No Patient tolerated procedure: well Intubation complications: none
[2020-09-28] MEDS: propofoL 200 MG/20 ML VIAL 100 MG IVPUSH (18:37)
[2020-09-28] MEDS: fentaNYL citrate/NS 1,000 MCG/100 ML PLAST..BAG 17 MCG IVCONT (18:39)
[2020-09-28] MEDS: propofoL 1,000 MG/100 ML VIAL 5.64 MG IVCONT (19:22)
--- NOTE | 2020-09-28 20:14 | PC.NURSE ---
ASSUMED CARE AT 07:00. PATIENT WAS SEDATED ON 150 OF FENTANYL, BUT AWAKE/ALERT; FOLLOWS COMMANDS BY SQUEEZING HANDS TO COMMAND. PSV TRIAL WELL TOLERATED, AND PATIENT WAS EXTUBATED AT 09:[address] ONEILL. PATIENT DID CONTINUE ON 4 LPM NASAL CANNULA; PRODUCTIVE COUGH; FREQUENT ORAL CARE AND SUCTIONING OF MOUTH; SCHILLING SPUTUM. PATIENT DID CONTINUE TO HAVE FEVER TODAY: 102.6; DOWN TO 101.1; UP TO 102.6; DISCUSSED WITH DR ONEILL, AND TYLENOL WAS TO BE GIVEN, BUT PATIENT REFUSED BY NOT OPENING MOUTH MID-DAY TO TAKE PRN TYELNOL; REQUESTED MT TYLENOL, BUT PER MD ONLY TO BE GIVEN FOR T>103. THIS EVENING, POST RE-INTUBATION, T: 103.6, OGT TYLENOL ADMINISTERED. PATIENT VOMITED THIS AFTERNOON AROUND 1300; D/W DR. NOEILL, AND MT DUCOLAX ORDERED LAST BM WAS 09/25. PATIENT NARES DEEP SUCTIONED X2 S/P VOMITING, SECOND TIME SCHILLING ASPIRATE WAS VISUALIZED. PATIENT DROPPED O2SAT IN EVENING, WSA HOVERING IN HIGH 80'S %, TITIRATED O2 THROUGH VENTIMASK AND NRB, PATIENT WAS FITTED WITH NASAL TRUMPET AND SUCTIONED; SPO2 DROPPED TO 82-85% AND PATIENT WAS RE-INTUBATED WITH 7.5 ETT PC SETTINGS: AC 20; PC 15; PEEP 8; FIO2 50%; MINUTE VOLUMES 10-13; TV: ABOUT 500; OGT WAS PLACED; AND CXR OBTAINED TO COMFIRM PLACEMENT. DR. ONEILL VISUALIZED OGT AND ETT AND ADVISED ADVANCEMENT OF OGT; THIS WAS DONE, BUT HAD TO BE PULLED BACK SLIGHTLY AFTERWARD TO REGAIN PATENCY. D/W CO FOUNDER AND CTO AND ASKED IF NEW CXR NEEDED; CO FOUNDER AND CTO REVIEWED PRIOR CXR; CHEF UNDER AWARE. SISTER SRIKANTH UPDATED REGARDING PATIENT'S CONDITION. NOW SPPO2 94-97%. NO TF STARTED PER DR. ONEILL.
[2020-09-28] MEDS: Valproic Acid 250 MG CAPSULE PO (21:29)
[2020-09-28] MEDS: Chlorhexidine Gluc Oral Rinse 15 ML MOUTHWASH BUCCAL (21:29)
[2020-09-28] MEDS: fentaNYL citrate/NS 1,000 MCG/100 ML PLAST..BAG 20 MCG IVCONT (23:35)
[2020-09-28] MEDS: Divalproex Sodium Sprinkles 125 MG CAP.DR.SPR 250 MG PO (23:35)
[2020-09-29] VITALS (33 sets, daily range): BP systolic 95–121; BP diastolic 50–69; PULSE 74–91; RESP 19–20; TEMP 37–37.7; O2SAT 93–99; BMI 19.3
[2020-09-29] MEDS: propofoL 1,000 MG/100 ML VIAL 14.1 MG IVCONT ×3 (01:42→23:50)
[2020-09-29] MEDS: Heparin Sodium,Porcine 5,000 UNIT/ML VIAL 5000 UNIT SUBCUT ×3 (01:43→17:30)
[2020-09-29] MEDS: fentaNYL citrate/NS 1,000 MCG/100 ML PLAST..BAG 20 MCG IVCONT ×4 (04:29→20:39)
[2020-09-29 06:05] LABS: MANUAL DIFF FLAG NO
[2020-09-29 06:07] LABS: Basophils Percent Auto 0.1 % (0-2); Eosinophils Absolute Auto 0.1 X10*3/uL (0.0-0.4); Eosinophils Percent Auto 0.3 % (0-4); Hematocrit 25.7 % (42-52); Hemoglobin 8.3 g/dl (14.0-18.0); Imm Gran Abs Auto 0.17 X10*3/uL (0.00-0.03); Lymphocytes Percent Auto 11.9 % (20-40); Mean Corpuscular HGB Conc 32.3 g/dl (31.0-36.0); Mean Corpuscular Hemoglobin 30.5 pg (27.0-33.0); Mean Corpuscular Volume 94.5 fL (80-98); Mean Platelet Volume 11.3 fL (9.4-12.4); Monocytes Absolute Auto 0.9 X10*3/uL (0.1-1.2); Monocytes Percent Auto 5.1 % (2-11); Neutrophils Percent Auto 81.6 % (45-73); Platelet Count 159 X10*3/uL (160-400); Red Blood Count 2.72 X10*6/uL (4.60-5.80); Red Cell Distribution Width 13.2 % (11.0-16.0); White Blood Count 17.2 X10*3/uL (4.8-10.8)
[2020-09-29 06:31] LABS: Base Excess VBG 0.3 mmol/L; HCO3 VBG 25 mmol/L; PCO2 VBG 39 mmhg; PO2 VBG 40 mmhg; pH VBG 7.42 (7.32-7.43)
[2020-09-29 06:32] LABS: Oxygen Saturation VBG 76.8 %
[2020-09-29 06:49] LABS: Albumin Level 3.2 g/dL (3.5-5.0); Anion Gap 13 (12-20); Blood Urea Nitrogen 19 mg/dL (9-16); Calcium 7.7 mg/dL (8.4-10.2); Carbon Dioxide 26 mmol/L (22-29); Chloride 104 mmol/L (96-108); Creatinine Clr Calc Pharmacy 113.8; Estimated Glomerular Filt Rate > 60; Glucose Random 69 mg/dL (60-115); Phosphorus 3.5 mg/dL (2.7-4.5); Potassium 3.7 mmol/l (3.3-5.1); Sodium 139 mmol/L (135-145)
[2020-09-29] MEDS: Divalproex Sodium Sprinkles 125 MG CAP.DR.SPR 250 MG PO ×2 (08:00→19:55)
[2020-09-29] MEDS: Chlorhexidine Gluc Oral Rinse 15 ML MOUTHWASH BUCCAL ×3 (08:00→19:55)
[2020-09-29] MEDS: Famotidine/PF 20 MG/2 ML VIAL IVPUSH (08:01)
[2020-09-29] MEDS: Albuterol/Iprat 2.5/0.5MG 3 ML AMPUL.NEB INHALE ×4 (08:11→19:41)
[2020-09-29] MEDS: 0.9 % Sodium Chloride Flush 3 ML SYRINGE IVFLUSH ×3 (09:54→23:44)
--- NOTE | 2020-09-29 10:10 | MHC.CM.PN ---
Patient remains in ICU. Extubated 09/28 and then reintubated due to aspiration. Patient is from a care home. Dr Canada will speak to patient's guardian/sister, Sharri about plan of care including possible trach/peg. Continue to monitor for d/c needs.
--- NOTE | 2020-09-29 10:15 | MHC.CLN ---
F/U PT RE-INTUBATED TO RE-START OSMOLITE AT MAX GOAL RATE 35CC/HR WITH 120CC FREE WATER FLUSH Q SHIFT TO PROVIDE 1260KCALS (1632KCALS WITH SEDATION; 35KCALS/KG), 52.6G PROTEIN (1.1G/KG), 1320CC TOTAL WATER FROM FORMULA AND FLUSHES (28.6CC/KG) MONITOR RESIDUALS, TOLERANCE AND LYTES
[2020-09-29] MEDS: Doxycycline Hyclate 100 MG in 0.9 % Sodium Chloride 250 ML 166.67 MG IV (11:25)
[2020-09-29] MEDS: propofoL 1,000 MG/100 ML VIAL 9.87 MG IVCONT (15:23)
--- NOTE | 2020-09-29 16:18 | P.PNCC_ITS ---
Subjective Subjective Date of Service: 09/29/20 Interval History: 60-year-old gentleman with underlying history of developmental delay, cerebral palsy, spastic quadriplegia, seizure disorder, dysphagia, wheelchair-bound, half-way resident admitted on 09/23/2020 with hypoxic respiratory failure requiring intubation and ventilatory support secondary to aspiration pneumonia. COVID-19 negative. extubated 09/28/2020, however required re-intubation for another aspiration event within 6 hours. No events overnight. Physical Exam Vital Signs: Vital Signs: Last Vital Signs Temp 98.8 F 09/29/20 15:00 Pulse 76 09/29/20 15:16 Resp 20 09/29/20 14:00 BP 99/59 L 09/29/20 15:00 Pulse Ox 96 09/29/20 15:00 Body Mass Index 19.3 Const: General: no acute distress and other ( Sedated on the vent) Eyes: Sclerae: sclerae normal Neck: Neck: Yes no lymphadenopathy, Yes trachea midline and Yes supple Resp: Auscultation: crackles ( right basilar) Cardio: Rate: regular rate Rhythm: regular rhythm Heart sounds: no gallops, no murmurs and no rubs GI: Palpation (GI): Soft to palpation and Other GI palpation findings present ( Nontender) Auscultation: normal bowel sounds Extrem: General: No clubbing, No cyanosis and Yes edema ( trace pedal edema) Objective Data Labs CBC & Chem 7: 09/29/20 05:25 09/29/20 05:25 Labs: Laboratory Results - last 24 hr 09/29/20 09/29/20 09/29/20 05:25 05:25 05:25 WBC 17.2 H RBC 2.72 L Hgb 8.3 L Hct 25.7 L MCV 94.5 MCH 30.5 MCHC 32.3 RDW 13.2 Plt Count 159 L MPV 11.3 Immature Gran % (Auto) 1.0 H Neut % (Auto) 81.6 H Lymph % (Auto) 11.9 L [place] % (Auto) 5.1 Eos % (Auto) 0.3 Baso % (Auto) 0.1 Lymph # (Auto) 2.0 [place] # (Auto) 0.9 Eos # (Auto) 0.1 Baso # (Auto) 0.0 Abs Immat Gran (auto) 0.17 H Absolute Neuts (auto) 14.0 H Absolute Nucleated RBC 0.000 Nucleated RBC % (auto) 0.0 VBG pH 7.42 VBG pCO2 39 VBG pO2 40 VBG HCO3 25 VBG O2 Saturation 76.8 VBG Base Excess 0.3 Sodium 139 Potassium 3.7 Chloride 104 Carbon Dioxide 26 Anion Gap 13 BUN 19 H Creatinine 0.51 Estim Creat Clear Calc 113.8 Estimated GFR > 60 Random Glucose 69 Calcium 7.7 L D Phosphorus 3.5 Magnesium 2.0 Albumin 3.2 L Microbiology Microbiology Results: Microbiology 09/26/20 15:00 Sputum - Suctioned Gram Stain - Final 09/26/20 15:00 Sputum - Suctioned Sputum Culture - Preliminary Gram negative ana 09/22/20 21:39 Blood - Venous Blood Culture - Final No growth after 5 days. 09/22/20 21:38 Blood - Venous Blood Culture - Final No growth after 5 days. 09/22/20 22:07 Urine clean catch - Clean Catch Midstream Urine Culture - F inal Escherichia coli Progress Note: A&P Assessment and plan (1) Aspiration pneumonia: Status: Acute Assessment and Plan: Assessment: 60-year-old gentleman half-way resident secondary to underlying cerebral palsy and spastic quadriplegia admitted on 09/23/2020 with acute hypoxic respiratory failure requiring ventilatory support. Plan: Neuro: Underlying seizure disorder, continue on valproic acid. Cardiac: No acute issues. Pulmonary: Acute hypoxic respiratory failure secondary to aspiration pneumonia. extubated 09/28/2020, however required re-intubation after approximately 6 hours for another aspiration event. Will likely require tracheostomy and parenteral gastrostomy. Family discussion in progress. Continue ventilatory support. Renal: No acute issues. Endo: No acute issues. GI: No acute issues. ID: another episode of aspiration, will switch to Unasyn. Heme/Onc: No acute issues. Psych: No acute issues. Miscellaneous: No acute issues. Prophylaxis: Heparin, famotidine Diet: tube feeds Critical care time spent: 60 minutes (2) Acute respiratory failure: Status: Acute Time Spent With Patient Time: Total time spent is greater than 50% in coordination of care (as documented) at patient's floor/unit and/or counseling patient: Total time spent with greater than 50% in coordination of care (as documented) at patient's floor/unit and/or counseling patient:: 0 Critical Care Time Critical Care Time (minutes): 60
[2020-09-29] MEDS: Ampicillin Sodium/Sulbactam Na 3 GM in 0.9 % Sodium Chloride 100 ML IV ×2 (17:32→23:45)
--- NOTE | 2020-09-29 19:47 | PC.NURSE ---
CARE ASSUMED AT 0700. PATIENT SEDATE ON PROPOFOL AT 50 AND FENTANYL AT 200; OPENS EYES, TRACKS. NO GAG; NO COUGH. SEDATION TITRATED DOWN GRADUALLY: PROPOFOL AT 35, FENTANYL AT 200; NIGHT NURSE AWARE, PLAN TO CONTINUE TITRATING DOWN SEDATION. LEVOPHED AT 0.07, UPTITRATED TO 0.08 FOR MAP OF 59. PATIENT IS NONVERBAL AT BASELINE; DOES NOT ANSWER QUESTIONS BUT DOES FOLLOW COMMANDS AT TIMES. PATIENT IS NOT ABLE TO FOLLOW COMMANDS CURRENTLY. CONTINUES ON PRESSURE CONTROL SETTINGS: VENTILATED WITH #7.5 ETT 23 CM DESTINEE; AC 20; PC 18; PEEP 6; FIO2 TITIRATED TO 30% FROM 40%; SPO2 94-97%; TV HAS BEEN 360-460; MINUTE VOLUMES ABOUT 9. LS CLEAR UPPERS, DIM BASES; ORAL SECRETIONS AND INLINE SMALL THIN CLEAR AND WHITE. EDEMATOUS; SARCRAL EDEMA ABOUT 2+; BILATERAL HANDS WITH EDEMA IMPROVING BY POSITIONING HANDS ABOVE ELBOWS. BATHED; NO BM--D/W MD AND WEB UI DEVELOPER, NEW ORDER FOR LACTULOSE. PATIENT WITH PINK BLANCHABLE BUTTOCKS; SCATTERED BRUISING ACROSS ABODOMEN; SLIGHT PINK DRAINAGE ON LATEST MOUTH CARE AROUND 1800; WEB UI DEVELOPER AWARE, NO CHANGES CURRENTLY.
[2020-09-29] MEDS: Lactulose 20 GM/30 ML SOLUTION OG-TUBE (19:54)
[2020-09-30] VITALS (34 sets, daily range): BP systolic 93–129; BP diastolic 41–75; PULSE 72–116; RESP 11–24; TEMP 36.9–39.5; O2SAT 90–100; BMI 19.8
[2020-09-30] MEDS: fentaNYL citrate/NS 1,000 MCG/100 ML PLAST..BAG 15 MCG IVCONT ×3 (01:40→14:29)
[2020-09-30] MEDS: Heparin Sodium,Porcine 5,000 UNIT/ML VIAL 5000 UNIT SUBCUT ×3 (01:45→18:39)
[2020-09-30] MEDS: propofoL 1,000 MG/100 ML VIAL 14.1 MG IVCONT ×2 (04:43→20:18)
[2020-09-30] MEDS: Ampicillin Sodium/Sulbactam Na 3 GM in 0.9 % Sodium Chloride 100 ML IV ×4 (04:44→23:13)
[2020-09-30 06:46] LABS: Basophils Percent Auto 0.1 % (0-2); Eosinophils Absolute Auto 0.3 X10*3/uL (0.0-0.4); Eosinophils Percent Auto 2.2 % (0-4); Hematocrit 27.4 % (42-52); Imm Gran Pct Auto 0.7 % (0.0-0.4); Lymphocytes Absolute Auto 1.5 X10*3/uL (1.2-4.9); Lymphocytes Percent Auto 10.7 % (20-40); MANUAL DIFF FLAG NO; Mean Corpuscular HGB Conc 32.8 g/dl (31.0-36.0); Mean Corpuscular Hemoglobin 30.6 pg (27.0-33.0); Mean Corpuscular Volume 93.2 fL (80-98); Mean Platelet Volume 11.6 fL (9.4-12.4); Monocytes Absolute Auto 0.9 X10*3/uL (0.1-1.2); Monocytes Percent Auto 6.7 % (2-11); Neutrophils Percent Auto 79.6 % (45-73); Platelet Count 163 X10*3/uL (160-400); Red Blood Count 2.94 X10*6/uL (4.60-5.80); Red Cell Distribution Width 13.1 % (11.0-16.0); White Blood Count 13.8 X10*3/uL (4.8-10.8)
[2020-09-30 06:52] LABS: HCO3 VBG 28 mmol/L; PCO2 VBG 44 mmhg; PO2 VBG 42 mmhg; pH VBG 7.42 (7.32-7.43)
[2020-09-30 06:53] LABS: Base Excess VBG 3.1 mmol/L; Oxygen Saturation VBG 76.2 %
[2020-09-30] MEDS: Albuterol/Iprat 2.5/0.5MG 3 ML AMPUL.NEB INHALE ×2 (07:29→11:05)
[2020-09-30 07:32] LABS: Anion Gap 10 (12-20); Blood Urea Nitrogen 12 mg/dL (9-16); Calcium 7.7 mg/dL (8.4-10.2); Carbon Dioxide 30 mmol/L (22-29); Chloride 104 mmol/L (96-108); Creatinine Clr Calc Pharmacy 110.3; Estimated Glomerular Filt Rate > 60; Glucose Random 119 mg/dL (60-115); Potassium 3.8 mmol/l (3.3-5.1); Sodium 140 mmol/L (135-145)
[2020-09-30 07:42] LABS: Phosphorus 2.7 mg/dL (2.7-4.5)
[2020-09-30] MEDS: Chlorhexidine Gluc Oral Rinse 15 ML MOUTHWASH BUCCAL ×3 (08:37→20:18)
[2020-09-30] MEDS: Famotidine/PF 20 MG/2 ML VIAL IVPUSH (08:37)
[2020-09-30] MEDS: Divalproex Sodium Sprinkles 125 MG CAP.DR.SPR 250 MG PO ×2 (08:46→20:18)
[2020-09-30] MEDS: 0.9 % Sodium Chloride Flush 3 ML SYRINGE IVFLUSH ×3 (09:11→23:13)
[2020-09-30] MEDS: bisacodyL 10 MG SUPP.RECT PR (10:55)
[2020-09-30] MEDS: Lactulose 20 GM/30 ML SOLUTION 30 GM PO ×2 (10:56→20:18)
--- NOTE | 2020-09-30 11:12 | PM.CCPN ---
Subjective Subjective Date of Service: 09/30/20 Interval History: 60-year-old gentleman with underlying history of developmental delay, cerebral palsy, spastic quadriplegia, seizure disorder, dysphagia, wheelchair-bound, half-way resident admitted on 09/23/2020 with hypoxic respiratory failure requiring intubation and ventilatory support secondary to aspiration pneumonia. COVID-19 negative. Extubated 09/28/2020, however required re-intubation for another aspiration event within 6 hours. No events overnight. Physical Exam Vital Signs: Vital Signs: Last Vital Signs Temp 98.6 F 09/30/20 10:43 Pulse 83 09/30/20 11:06 Resp 20 09/30/20 10:43 BP 106/63 09/30/20 10:43 Pulse Ox 100 09/30/20 10:43 Body Mass Index 19.8 Const: General: no acute distress and other ( Sedated on the vent) Eyes: Sclerae: sclerae normal Neck: Neck: Yes no lymphadenopathy, Yes trachea midline and Yes supple Resp: Auscultation: clear to auscultation bilaterally Cardio: Rate: regular rate Rhythm: regular rhythm Heart sounds: no gallops, no murmurs and no rubs GI: Palpation (GI): Soft to palpation and Other GI palpation findings present ( Nontender) Auscultation: normal bowel sounds Extrem: General: No clubbing, No cyanosis and Yes edema ( trace bilateral) Objective Data Labs CBC & Chem 7: 09/30/20 06:10 09/30/20 06:10 Labs: Laboratory Results - last 24 hr 09/30/20 09/30/20 09/30/20 06:10 06:10 06:10 WBC 13.8 H RBC 2.94 L Hgb 9.0 L Hct 27.4 L MCV 93.2 MCH 30.6 MCHC 32.8 RDW 13.1 Plt Count 163 MPV 11.6 Immature Gran % (Auto) 0.7 H Neut % (Auto) 79.6 H Lymph % (Auto) 10.7 L [place] % (Auto) 6.7 Eos % (Auto) 2.2 Baso % (Auto) 0.1 Lymph # (Auto) 1.5 [place] # (Auto) 0.9 Eos # (Auto) 0.3 Baso # (Auto) 0.0 Abs Immat Gran (auto) 0.10 H Absolute Neuts (auto) 11.0 H Absolute Nucleated RBC 0.000 Nucleated RBC % (auto) 0.0 VBG pH 7.42 VBG pCO2 44 VBG pO2 42 VBG HCO3 28 VBG O2 Saturation 76.2 VBG Base Excess 3.1 Sodium 140 Potassium 3.8 Chloride 104 Carbon Dioxide 30 H Anion Gap 10 L BUN 12 Creatinine 0.54 Estim Creat Clear Calc 110.3 Estimated GFR > 60 Random Glucose 119 H D Calcium 7.7 L Phosphorus 2.7 Magnesium 2.0 Albumin 3.0 L Microbiology Microbiology Results: Microbiology 09/26/20 15:00 Sputum - Suctioned Gram Stain - Final 09/26/20 15:00 Sputum - Suctioned Sputum Culture - Final Enterobacter cloacae complex 09/22/20 21:39 Blood - Venous Blood Culture - Final No growth after 5 days. 09/22/20 21:38 Blood - Venous Blood Culture - Final No growth after 5 days. 09/22/20 22:07 Urine clean catch - Clean Catch Midstream Urine Culture - Final Escherichia coli Progress Note: A&P Assessment and plan (1) Aspiration pneumonia: Status: Acute Assessment and Plan: Assessment: 60-year-old gentleman half-way resident secondary to underlying cerebral palsy and spastic quadriplegia admitted on 09/23/2020 with acute hypoxic respiratory failure requiring ventilatory support. Plan: Neuro: Underlying seizure disorder, continue on valproic acid. Cardiac: No acute issues. Pulmonary: Acute hypoxic respiratory failure secondary to aspiration pneumonia. Extubated 09/28/2020, however required re-intubation after approximately 6 hours for another aspiration event. Will likely require tracheostomy and parenteral gastrostomy. Family discussion in progress. Continue ventilatory support. Renal: No acute issues. Endo: No acute issues. GI: No acute issues. ID: another episode of aspiration, will switch to Unasyn. Heme/Onc: No acute issues. Psych: No acute issues. Miscellaneous: No acute issues. Prophylaxis: Heparin, famotidine Diet: tube feeds Critical care time spent: 60 minutes (2) Acute respiratory failure: Status: Acute Time Spent With Patient Time: Total time spent is greater than 50% in coordination of care (as documented) at patient's floor/unit and/or counseling patient: Total time spent with greater than 50% in coordination of care (as documented) at patient's floor/unit and/or counseling patient:: 0 Critical Care Time Critical Care Time (minutes): 60
[2020-09-30] MEDS: propofoL 1,000 MG/100 ML VIAL 9.87 MG IVCONT (11:45)
--- NOTE | 2020-09-30 13:19 | PC.NURSE ---
Assumed care of patient at 0700. Patient sedated on vent, eye opening and slight movement to stimuli. Patient tolerating vent well. PI: 18, Rate: 20, O2: 30%, PEEP: 6. Vital signs stable. Afebrile. Lung sounds coarse crackles bilateral through out. No bowel movement overnight, patient medicated with Ducolax Sup. and lactalose. Dr. Canada aware. Tube feeding 30 mls/hr Osmo. OG tube flushing well. No residual. Aguilar secure. Urine output 50 mls/hr. TLC ports flushed. Propofol, Levo, Fent, GTT currently infusing. Propofol titrating down per Dr. Canada request. Patient repositioned q2, Skin intact, +1 edema in extremities. Plan of care reviewed with Dr. Canada, no new orders at this time.
--- NOTE | 2020-09-30 15:30 | MHC.CM.PN ---
Pt re-intubated on 09/28 after another aspiration event. MD to have family discussion re: pt's likely need for a trach and alternative feeding source : i.e. parenteral/g tube. Pt is at an FiO2 of 30% - weaning attempts are likely to continue to result in aspiration. CM will follow for likely LTAC placement should pt require a trach
--- NOTE | 2020-09-30 19:54 | XR_ITS ---
EXAMINATION: XR CHEST CLINICAL INFORMATION: Tube placement COMPARISON: Prior chest 09/28/2020. TECHNIQUE: Frontal view of the chest was obtained. FINDINGS: Endotracheal tube is in place with the tip 3.2 cm above the milind. A enteric tube is noted with the tip below the diaphragm of the distal tip outside the [id number] the exam. Central venous catheter tip in region of the right atrium unchanged. Lungs and pleural spaces: Lateral aspect of the left chest and left costophrenic angle outside the [id number] the exam. Minimal patchy opacity right base. Cardiac silhouette mediastinum pulmonary vascularity normal. XR/XR chest 1V IMPRESSION: Endotracheal tube 3.2 cm above milind. Minimal opacity right base likely atelectasis
[2020-09-30] MEDS: Acetaminophen Oral Liquid 650 MG/20.3 ML SOLUTION OG-TUBE (20:17)
[2020-09-30] MEDS: Midazolam HCl/PF 2 MG/2 ML VIAL IVPUSH (20:18)
[2020-09-30] MEDS: fentaNYL citrate/NS 1,000 MCG/100 ML PLAST..BAG 20 MCG IVCONT (21:39)
[2020-10-01] VITALS (29 sets, daily range): BP systolic 99–124; BP diastolic 53–73; PULSE 76–103; RESP 20–23; TEMP 37.1–38.3; O2SAT 50–94; BMI 19.4
[2020-10-01] MEDS: fentaNYL citrate/NS 1,000 MCG/100 ML PLAST..BAG 20 MCG IVCONT ×5 (02:58→23:41)
[2020-10-01] MEDS: Heparin Sodium,Porcine 5,000 UNIT/ML VIAL 5000 UNIT SUBCUT ×3 (02:59→17:15)
--- NOTE | 2020-10-01 05:19 | PC.NURSE ---
Vent settings:Pressure control RR of 20 Pi of 18 Peep of 6 Fio2 50%
[2020-10-01] MEDS: Ampicillin Sodium/Sulbactam Na 3 GM in 0.9 % Sodium Chloride 100 ML IV ×4 (05:59→22:26)
[2020-10-01] MEDS: 0.9 % Sodium Chloride Flush 3 ML SYRINGE IVFLUSH ×2 (06:04→17:15)
[2020-10-01] MEDS: propofoL 1,000 MG/100 ML VIAL 14.1 MG IVCONT ×3 (06:12→18:37)
[2020-10-01 06:20] LABS: MANUAL DIFF FLAG NO
[2020-10-01 06:26] LABS: Basophils Percent Auto 0.1 % (0-2); Eosinophils Absolute Auto 0.4 X10*3/uL (0.0-0.4); Eosinophils Percent Auto 2.3 % (0-4); Hematocrit 27.2 % (42-52); Hemoglobin 8.6 g/dl (14.0-18.0); Imm Gran Abs Auto 0.14 X10*3/uL (0.00-0.03); Imm Gran Pct Auto 0.7 % (0.0-0.4); Lymphocytes Absolute Auto 1.2 X10*3/uL (1.2-4.9); Lymphocytes Percent Auto 6.3 % (20-40); Mean Corpuscular HGB Conc 31.6 g/dl (31.0-36.0); Mean Corpuscular Hemoglobin 30.4 pg (27.0-33.0); Mean Corpuscular Volume 96.1 fL (80-98); Mean Platelet Volume 11.6 fL (9.4-12.4); Monocytes Absolute Auto 1.1 X10*3/uL (0.1-1.2); Monocytes Percent Auto 5.8 % (2-11); Neutrophils Absolute Auto 16.5 X10*3/uL (2.0-8.3); Neutrophils Percent Auto 84.8 % (45-73); Platelet Count 174 X10*3/uL (160-400); Red Blood Count 2.83 X10*6/uL (4.60-5.80); Red Cell Distribution Width 13.4 % (11.0-16.0); White Blood Count 19.5 X10*3/uL (4.8-10.8)
[2020-10-01 06:42] LABS: Base Excess VBG 2.8 mmol/L; HCO3 VBG 29 mmol/L; Oxygen Saturation VBG 83.9 %; PCO2 VBG 50 mmhg; PO2 VBG 50 mmhg; pH VBG 7.38 (7.32-7.43)
[2020-10-01 06:53] LABS: Albumin Level 2.8 g/dL (3.5-5.0); Anion Gap 10 (12-20); Blood Urea Nitrogen 12 mg/dL (9-16); Calcium 7.4 mg/dL (8.4-10.2); Carbon Dioxide 30 mmol/L (22-29); Chloride 104 mmol/L (96-108); Creatinine Clr Calc Pharmacy 112.3; Estimated Glomerular Filt Rate > 60; Glucose Random 75 mg/dL (60-115); Magnesium 1.9 mg/dL (1.6-2.6); Phosphorus 2.9 mg/dL (2.7-4.5); Potassium 3.6 mmol/l (3.3-5.1); Sodium 140 mmol/L (135-145)
[2020-10-01] MEDS: Famotidine/PF 20 MG/2 ML VIAL IVPUSH (08:06)
[2020-10-01] MEDS: Lactulose 20 GM/30 ML SOLUTION 30 GM PO ×2 (08:08→20:13)
[2020-10-01] MEDS: Divalproex Sodium Sprinkles 125 MG CAP.DR.SPR 250 MG PO ×2 (08:08→20:13)
[2020-10-01] MEDS: Chlorhexidine Gluc Oral Rinse 15 ML MOUTHWASH BUCCAL ×3 (08:13→20:13)
--- NOTE | 2020-10-01 12:00 | PC.NURSE ---
Redness to upper lip above tube tamer. Tube tamer was replaced in a slightly new position and a duoderm was placed under it to create a barrier for pressure.
--- NOTE | 2020-10-01 12:01 | PC.NURSE ---
Pt remains sedated on the ventilator. He is on PC settings with no changes since previous note. Pt stimulates easily with patient care. Tube feeds remain off due to episode last night of tube feeds found in patients mouth during oral suctioning. Updated sister beryl and educated her on trach and peg care transitions in and out of the hospital.
--- NOTE | 2020-10-01 12:01 | PM.CCPN ---
Subjective Subjective Date of Service: 10/01/20 Interval History: 60-year-old gentleman with underlying history of developmental delay, cerebral palsy, spastic quadriplegia, seizure disorder, dysphagia, wheelchair-bound, retirement resident admitted on 09/23/2020 with hypoxic respiratory failure requiring intubation and ventilatory support secondary to aspiration pneumonia. COVID-19 negative. Extubated 09/28/2020, however required re-intubation for another aspiration event the same day. Physical Exam Vital Signs: Vital Signs: Last Vital Signs Temp 99.1 F 10/01/20 10:55 Pulse 94 10/01/20 10:55 Resp 20 10/01/20 10:55 BP 108/66 10/01/20 09:49 Pulse Ox 92 10/01/20 10:55 Body Mass Index 19.4 Const: General: no acute distress and other ( Sedated on the vent) Eyes: Sclerae: sclerae normal Neck: Neck: Yes no lymphadenopathy, Yes trachea midline and Yes supple Resp: Auscultation: clear to auscultation bilaterally Cardio: Rate: regular rate Rhythm: regular rhythm Heart sounds: no gallops, no murmurs and no rubs GI: Palpation (GI): Soft to palpation and Other GI palpation findings present ( Nontender) Auscultation: normal bowel sounds Extrem: General: No clubbing, No cyanosis and Yes edema ( trace bilateral) Objective Data Labs CBC & Chem 7: 10/01/20 05:54 10/01/20 05:54 Labs: Laboratory Results - last 24 hr 10/01/20 10/01/20 10/01/20 05:54 05:54 05:54 WBC 19.5 H RBC 2.83 L Hgb 8.6 L Hct 27.2 L MCV 96.1 MCH 30.4 MCHC 31.6 RDW 13.4 Plt Count 174 MPV 11.6 Immature Gran % (Auto) 0.7 H Neut % (Auto) 84.8 H Lymph % (Auto) 6.3 L [place] % (Auto) 5.8 Eos % (Auto) 2.3 Baso % (Auto) 0.1 Lymph # (Auto) 1.2 [place] # (Auto) 1.1 Eos # (Auto) 0.4 Baso # (Auto) 0.0 Abs Immat Gran (auto) 0.14 H Absolute Neuts (auto) 16.5 H Absolute Nucleated RBC 0.000 Nucleated RBC % (auto) 0.0 VBG pH 7.38 VBG pCO2 50 VBG pO2 50 VBG HCO3 29 VBG O2 Saturation 83.9 VBG Base Excess 2.8 Sodium 140 Potassium 3.6 Chloride 104 Carbon Dioxide 30 H Anion Gap 10 L BUN 12 Creatinine 0.53 Estim Creat Clear Calc 112.3 Estimated GFR > 60 Random Glucose 75 D Calcium 7.4 L Phosphorus 2.9 Magnesium 1.9 Albumin 2.8 L Microbiology Microbiology Results: Microbiology 09/26/20 15:00 Sputum - Suctioned Gram Stain - Final 09/26/20 15:00 Sputum - Suctioned Sputum Culture - Final Enterobacter cloacae complex 09/22/20 21:39 Blood - Venous Blood Culture - Final No growth after 5 days. 09/22/20 21:38 Blood - Venous Blood Culture - Final No growth after 5 days. 09/22/20 22:07 Urine clean catch - Clean Catch Midstream Urine Culture - Final Escherichia coli Progress Note: A&P Assessment and plan (1) Aspiration pneumonia: Status: Acute Assessment and Plan: Assessment[facility] 60[facility] underlying cerebral palsy and spastic quadriplegia admitted on 09/23/2020 with acute hypoxic respiratory failure requiring ventilatory support. Plan: Neuro: Underlying seizure disorder, continue on valproic acid. Cardiac: No acute issues. Pulmonary: Acute hypoxic respiratory failure secondary to aspiration pneumonia. Extubated 09/28/2020, however required re-intubation after approximately 6 hours for another aspiration event. Will likely require tracheostomy and parenteral gastrostomy. Family discussion in progress. Continue ventilatory support. Renal: No acute issues. Endo: No acute issues. GI: No acute issues. ID: continue on Unasyn for underlying aspiration pneumonitis /pneumonia. Heme/Onc: No acute issues. Psych: No acute issues. Miscellaneous: No acute issues. Prophylaxis: Heparin, famotidine Diet: tube feeds Critical care time spent: 60 minutes (2) Acute respiratory failure: Status: Acute (3) Cerebral palsy: Status: Acute (4) Seizure: Status: Acute Time Spent With Patient Time: Total time spent is greater than 50% in coordination of care (as documented) at patient's floor/unit and/or counseling patient: Total time spent with greater than 50% in coordination of care (as documented) at patient's floor/unit and/or counseling patient:: 0 Critical Care Time Critical Care Time (minutes): 60
--- NOTE | 2020-10-01 19:12 | PC.NURSE ---
ASSUMED CARE AT 1500. PT ON VENT WITH PC WITH PROP AND FENTANYL SEDATION. PT TOLERATING VENT WELL. TUBE FEED OSOMOLITE RESTARTED AT 1700 AT A RATE OF 20 ML/HR. PT WITH ERWIN, URINE OUTPUT OF 65-75/HR. BPS 120S SYSTOLIC ON LEVOPHED, AFIBRILE. PT REPOSITIONED Q2 HRS. NO FURTHER ISSUES AT THIS TIME.
[2020-10-02] VITALS (31 sets, daily range): BP systolic 92–134; BP diastolic 48–80; PULSE 74–115; RESP 10–20; TEMP 37.5–38.4; O2SAT 93–97; BMI 18.6
--- NOTE | 2020-10-02 | XR_ITS ---
EXAMINATION: XR CHEST CLINICAL INFORMATION: NG tube placement COMPARISON: Earlier on same day and September 30, 2020 TECHNIQUE: AP portable views of the chest was obtained. FINDINGS: 3 portable views of the chest demonstrate attempted placement of nasogastric tube. On the final image with the tip of catheter is seen within the distal esophagus with tip at the gastroesophageal junction. Endotracheal tube tip is approximately 5 cm above the milind. Right internal jugular central venous catheter is seen with tip in the mid to lower right atrium. No pneumothorax or significant pleural effusion. Heart normal size. No evidence of pulmonary edema. There appears to be some atelectatic type change or scarring within the right upper lobe. There is again noted to be some parenchymal disease at the left base which may be related to atelectasis or pneumonitis. This is similar to earlier study. XR/XR chest 1V IMPRESSION: Enteric tube tip seen at the gastroesophageal junction. No significant change in parenchymal disease. This critical result was discussed with Dr. Canada at 10:50 AM on October 02, 2020 and it was ascertained that the content and urgency of the report was understood at the time of direct communication.
--- NOTE | 2020-10-02 | XR_ITS ---
EXAMINATION: XR CHEST CLINICAL INFORMATION: Orogastric tube placement COMPARISON: 09/30/2020 TECHNIQUE: Frontal view of the chest was obtained. FINDINGS: The endotracheal tube terminates 3.5 cm above the milind. Enteric tube extends into the stomach. Right internal jugular central venous catheter terminates over the lower right atrium. This is unchanged. Lung volumes are low. Right medial basilar hazy opacity. Suspect small left pleural effusion. No pneumothorax. The cardiomediastinal silhouette is within normal limits.. XR/XR chest 1V IMPRESSION: Endotracheal tube terminating 3.5 cm above the milind. Enteric tube extending into the stomach. Increased hazy medial right basilar opacity..
[2020-10-02] MEDS: 0.9 % Sodium Chloride Flush 3 ML SYRINGE IVFLUSH ×3 (00:20→15:16)
[2020-10-02] MEDS: Heparin Sodium,Porcine 5,000 UNIT/ML VIAL 5000 UNIT SUBCUT ×3 (01:27→17:53)
[2020-10-02] MEDS: propofoL 1,000 MG/100 ML VIAL 14.1 MG IVCONT ×2 (01:30→06:28)
[2020-10-02] MEDS: fentaNYL citrate/NS 1,000 MCG/100 ML PLAST..BAG 20 MCG IVCONT ×4 (05:04→19:52)
[2020-10-02] MEDS: Ampicillin Sodium/Sulbactam Na 3 GM in 0.9 % Sodium Chloride 100 ML IV ×4 (05:05→22:18)
[2020-10-02 06:25] LABS: Basophils Percent Auto 0.2 % (0-2); Eosinophils Absolute Auto 0.5 X10*3/uL (0.0-0.4); Eosinophils Percent Auto 2.6 % (0-4); Hematocrit 27.8 % (42-52); Hemoglobin 8.7 g/dl (14.0-18.0); Imm Gran Abs Auto 0.08 X10*3/uL (0.00-0.03); Imm Gran Pct Auto 0.4 % (0.0-0.4); Lymphocytes Absolute Auto 0.8 X10*3/uL (1.2-4.9); Lymphocytes Percent Auto 4.5 % (20-40); MANUAL DIFF FLAG SCAN; Mean Corpuscular HGB Conc 31.3 g/dl (31.0-36.0); Mean Corpuscular Hemoglobin 30.3 pg (27.0-33.0); Mean Corpuscular Volume 96.9 fL (80-98); Mean Platelet Volume 11.7 fL (9.4-12.4); Monocytes Absolute Auto 1.5 X10*3/uL (0.1-1.2); Monocytes Percent Auto 8.4 % (2-11); Neutrophils Absolute Auto 15.2 X10*3/uL (2.0-8.3); Neutrophils Percent Auto 83.9 % (45-73); Platelet Count 187 X10*3/uL (160-400); Red Blood Count 2.87 X10*6/uL (4.60-5.80); Red Cell Distribution Width 13.2 % (11.0-16.0); SCAN SMEAR FLAG 1; White Blood Count 18.2 X10*3/uL (4.8-10.8)
--- NOTE | 2020-10-02 06:37 | PC.NURSE ---
Xray obtained for OG tube placement, after the midnight assessment. After xray obtained, MANAGER LICENSING advised to advance tube. After advancing tube auscultation was dampened and resistance was met with airflow. Tube feeding was not restarted at this time.
[2020-10-02 06:51] LABS: SLIDE REVIEW VERIFIED
[2020-10-02 06:54] LABS: PCO2 VBG 50 mmhg
[2020-10-02 06:55] LABS: Base Excess VBG 4.4 mmol/L; HCO3 VBG 30 mmol/L; Oxygen Saturation VBG 84.2 %; PO2 VBG 48 mmhg
[2020-10-02 07:04] LABS: Albumin Level 2.7 g/dL (3.5-5.0); Anion Gap 11 (12-20); Blood Urea Nitrogen 9 mg/dL (9-16); Calcium 7.1 mg/dL (8.4-10.2); Carbon Dioxide 29 mmol/L (22-29); Chloride 105 mmol/L (96-108); Creatinine Clr Calc Pharmacy 114.5; Estimated Glomerular Filt Rate > 60; Glucose Random 78 mg/dL (60-115); Magnesium 1.9 mg/dL (1.6-2.6); Phosphorus 2.4 mg/dL (2.7-4.5); Potassium 3.8 mmol/l (3.3-5.1); Sodium 141 mmol/L (135-145)
[2020-10-02] MEDS: Chlorhexidine Gluc Oral Rinse 15 ML MOUTHWASH BUCCAL ×3 (09:25→21:15)
[2020-10-02] MEDS: Potassium Phosphate 30 MMOL in 0.9 % Sodium Chloride 500 ML 85 MMOL IV (09:25)
[2020-10-02] MEDS: Famotidine/PF 20 MG/2 ML VIAL IVPUSH (09:26)
[2020-10-02] MEDS: bisacodyL 10 MG SUPP.RECT PR (10:04)
--- NOTE | 2020-10-02 11:06 | P.PNCC_ITS ---
Subjective Subjective Date of Service: 10/02/20 Interval History: 60-year-old gentleman with underlying history of developmental delay, cerebral palsy, spastic quadriplegia, seizure disorder, dysphagia, wheelchair-bound, residential resident admitted on 09/23/2020 with hypoxic respiratory failure requiring intubation and ventilatory support secondary to aspiration pneumonia. COVID-19 negative. Extubated 09/28/2020, however required re-intubation for another aspiration event the same day. No events overnight. Physical Exam Vital Signs: Vital Signs: Last Vital Signs Temp 100.8 F H 10/02/20 10:55 Pulse 105 H 10/02/20 10:55 Resp 20 10/02/20 10:55 BP 102/51 L 10/02/20 10:55 Pulse Ox 95 10/02/20 10:55 Body Mass Index 18.6 Const: General: no acute distress and other ( Sedated on the vent) Eyes: Sclerae: sclerae normal Neck: Neck: Yes no lymphadenopathy, Yes trachea midline and Yes supple Resp: Effort & Inspection: respiratory distress Auscultation: crackles ( bibasilar) Cardio: Rate: regular rate Rhythm: regular rhythm Heart sounds: no gallops, no murmurs and no rubs GI: Palpation (GI): Soft to palpation and Other GI palpation findings present ( Nontender) Auscultation: normal bowel sounds Extrem: General: No clubbing, No cyanosis and Yes edema ( trace bilateral) Objective Data Labs CBC & Chem 7: 10/02/20 05:19 10/02/20 05:19 Labs: Laboratory Results - last 24 hr 10/02/20 10/02/20 10/02/20 05:18 05:19 05:19 WBC 18.2 H RBC 2.87 L Hgb 8.7 L Hct 27.8 L MCV 96.9 MCH 30.3 MCHC 31.3 RDW 13.2 Plt Count 187 MPV 11.7 Immature Gran % (Auto) 0.4 Neut % (Auto) 83.9 H Lymph % (Auto) 4.5 L [place] % (Auto) 8.4 Eos % (Auto) 2.6 Baso % (Auto) 0.2 Lymph # (Auto) 0.8 L [place] # (Auto) 1.5 H Eos # (Auto) 0.5 H Baso # (Auto) 0.0 Abs Immat Gran (auto) 0.08 H Absolute Neuts (auto) 15.2 H Absolute Nucleated RBC 0.000 Nucleated RBC % (auto) 0.0 Smear Tech's Comments VERIFIED VBG pH 7.40 VBG pCO2 50 VBG pO2 48 VBG HCO3 30 VBG O2 Saturation 84.2 VBG Base Excess 4.4 Sodium 141 Potassium 3.8 Chloride 105 Carbon Dioxide 29 Anion Gap 11 L BUN 9 Creatinine 0.49 L Estim Creat Clear Calc 114.5 Estimated GFR > 60 Random Glucose 78 Calcium 7.1 L Phosphorus 2.4 L Magnesium 1.9 Albumin 2.7 L Microbiology Microbiology Results: Microbiology 09/26/20 15:00 Sputum - Suctioned Gram Stain - Final 09/26/20 15:00 Sputum - Suctioned Sputum Culture - Final Enterobacter cloacae complex 09/22/20 21:39 Blood - Venous Blood Culture - Final No growth after 5 days. 09/22/20 21:38 Blood - Venous Blood Culture - Final No growth after 5 days. 09/22/20 22:07 Urine clean catch - Clean Catch Midstream Urine Culture - Final Escherichia coli Progress Note: A&P Assessment and plan (1) Aspiration pneumonia: Status: Acute Assessment and Plan: Assessment: 60-year-old gentleman residential resident secondary to underlying cerebral palsy and spastic quadriplegia admitted on 09/23/2020 with acute hypoxic respiratory failure requiring ventilatory support. Plan: Neuro: Underlying seizure disorder, continue on valproic acid. Cardiac: No acute issues. Pulmonary: Acute hypoxic respiratory failure secondary to aspiration pneumonia. Extubated 09/28/2020, however required re-intubation after approximately 6 hours for another aspiration event. Will likely require tracheostomy and parenteral gastrostomy. Family discussion in progress. Continue ventilatory support. Renal: No acute issues. Endo: No acute issues. GI: Unable to pass NG tube past G-E junction despite multiple attempts. Will require either PEG tube or a NG tube placed under fluoro guidance. ID: continue on Unasyn for underlying aspiration pneumonitis /pneumonia. Heme/Onc: No acute issues. Psych: No acute issues. Miscellaneous: No acute issues. Prophylaxis: Heparin, famotidine Diet: Nothing by mouth Critical care time spent: 60 minutes (2) Acute respiratory failure: Status: Acute (3) Cerebral palsy: Status: Acute Time Spent With Patient Total time spent with greater than 50% in coordination of care (as documented) at patient's floor/unit and/or counseling patient:: 0 Critical Care Time Critical Care Time (minutes): 60
[2020-10-02] MEDS: Valproic Acid (as Sodium Salt) 250 MG in Dextrose 5 % 50 ML 52.5 MG IV (12:37)
[2020-10-02] MEDS: propofoL 1,000 MG/100 ML VIAL 7.05 MG IVCONT (14:34)
[2020-10-02 18:37] LABS: Legionella Ag Urine Not Detected (Not Detected)
[2020-10-02] MEDS: Acetaminophen Supp 650 MG SUPP.RECT PR (22:11)
[2020-10-02] MEDS: Valproic Acid (as Sodium Salt) 250 MG in Dextrose 5 % 50 ML 200 MG IV (22:17)
[2020-10-02] MEDS: propofoL 1,000 MG/100 ML VIAL 9.87 MG IVCONT (23:56)
[2020-10-03] VITALS (32 sets, daily range): BP systolic 96–129; BP diastolic 46–72; PULSE 20–121; RESP 13–20; TEMP 37.5–38.6; O2SAT 92–97; BMI 18.4
[2020-10-03] MEDS: 0.9 % Sodium Chloride Flush 3 ML SYRINGE IVFLUSH ×4 (00:04→23:13)
[2020-10-03] MEDS: fentaNYL citrate/NS 1,000 MCG/100 ML PLAST..BAG 17.5 MCG IVCONT ×5 (01:42→23:12)
[2020-10-03] MEDS: Heparin Sodium,Porcine 5,000 UNIT/ML VIAL 5000 UNIT SUBCUT ×3 (02:06→17:30)
[2020-10-03] MEDS: Ampicillin Sodium/Sulbactam Na 3 GM in 0.9 % Sodium Chloride 100 ML IV ×4 (05:26→23:11)
[2020-10-03 05:45] LABS: Basophils Percent Auto 0.1 % (0-2); Eosinophils Absolute Auto 0.3 X10*3/uL (0.0-0.4); Eosinophils Percent Auto 1.7 % (0-4); Hemoglobin 8.4 g/dl (14.0-18.0); Imm Gran Pct Auto 0.6 % (0.0-0.4); Lymphocytes Absolute Auto 1.2 X10*3/uL (1.2-4.9); MANUAL DIFF FLAG SCAN; Mean Corpuscular HGB Conc 31.1 g/dl (31.0-36.0); Mean Corpuscular Hemoglobin 29.9 pg (27.0-33.0); Mean Corpuscular Volume 96.1 fL (80-98); Mean Platelet Volume 10.9 fL (9.4-12.4); Monocytes Absolute Auto 1.7 X10*3/uL (0.1-1.2); Monocytes Percent Auto 9.6 % (2-11); Neutrophils Absolute Auto 14.1 X10*3/uL (2.0-8.3); Platelet Count 191 X10*3/uL (160-400); Red Blood Count 2.81 X10*6/uL (4.60-5.80); Red Cell Distribution Width 12.8 % (11.0-16.0); SCAN SMEAR FLAG 1; White Blood Count 17.4 X10*3/uL (4.8-10.8)
[2020-10-03 06:08] LABS: Base Excess VBG 0.9 mmol/L; HCO3 VBG 27 mmol/L; Oxygen Saturation VBG 87.3 %; PCO2 VBG 48 mmhg; PO2 VBG 55 mmhg; pH VBG 7.36 (7.32-7.43)
[2020-10-03 06:14] LABS: Albumin Level 2.6 g/dL (3.5-5.0); Anion Gap 14 (12-20); Blood Urea Nitrogen 9 mg/dL (9-16); Calcium 7.1 mg/dL (8.4-10.2); Carbon Dioxide 26 mmol/L (22-29); Chloride 103 mmol/L (96-108); Creatinine Clr Calc Pharmacy 113.1; Estimated Glomerular Filt Rate > 60; Glucose Random 56 mg/dL (60-115); Magnesium 1.9 mg/dL (1.6-2.6); Potassium 3.9 mmol/l (3.3-5.1); Sodium 139 mmol/L (135-145)
[2020-10-03 06:22] LABS: SLIDE REVIEW VERIFIED
[2020-10-03] MEDS: Dextrose 10 % 1,000 ML 50 ML IVCONT (06:36)
[2020-10-03] MEDS: propofoL 1,000 MG/100 ML VIAL 8.46 MG IVCONT (07:25)
[2020-10-03] MEDS: Famotidine/PF 20 MG/2 ML VIAL IVPUSH (09:17)
[2020-10-03] MEDS: Albumin Human 25 % 100 ML IV ×3 (09:17→21:16)
[2020-10-03] MEDS: Chlorhexidine Gluc Oral Rinse 15 ML MOUTHWASH BUCCAL ×3 (09:17→21:16)
[2020-10-03] MEDS: Potassium Phosphate 30 MMOL in 0.9 % Sodium Chloride 500 ML 85 MMOL IV (09:24)
[2020-10-03] MEDS: Valproic Acid (as Sodium Salt) 250 MG in Dextrose 5 % 50 ML 200 MG IV ×2 (11:37→23:33)
[2020-10-03] MEDS: Sodium Phosphate,Mono-Dibasic 133 ML ENEMA PR (11:38)
--- NOTE | 2020-10-03 12:58 | P.PNCC_ITS ---
Subjective Subjective Date of Service: 10/03/20 Interval History: ICU day 10 for acute hypoxic respiratory failure secondary to recurrent aspiration pneumonia. 60-year-old gentleman with underlying history of developmental delay, cerebral palsy, spastic quadriplegia, seizure disorder, dysphagia, wheelchair-bound, [facility] resident admitted on 09/23/2020 with hypoxic respiratory failure requiring intubation and ventilatory support secondary to aspiration pneumonia. COVID-19 negative. Extubated 09/28/2020, however required re-intubation for another aspiration event the same day. Physical Exam Vital Signs: Vital Signs: Last Vital Signs Temp 101.5 F H 10/03/20 12:00 Pulse 121 H 10/03/20 12:00 Resp 19 10/03/20 12:00 BP 120/58 L 10/03/20 12:00 Pulse Ox 95 10/03/20 12:00 Body Mass Index 18.4 Const: General: no acute distress and other ( Sedated on the vent) Eyes: Sclerae: sclerae normal Neck: Neck: Yes no lymphadenopathy, Yes trachea midline and Yes supple Resp: Auscultation: clear to auscultation bilaterally Cardio: Rate: regular rate Rhythm: regular rhythm Heart sounds: no gallops, no murmurs and no rubs GI: Palpation (GI): Soft to palpation and Other GI palpation findings present ( Nontender) Auscultation: normal bowel sounds Extrem: General: No clubbing, No cyanosis and Yes edema ( trace bilateral) Objective Data Labs CBC & Chem 7: 10/03/20 05:17 10/03/20 05:17 Labs: Laboratory Results - last 24 hr 09/23/20 10/03/20 10/03/20 10:31 05:17 05:17 WBC 17.4 H RBC 2.81 L Hgb 8.4 L Hct 27.0 L MCV 96.1 MCH 29.9 MCHC 31.1 RDW 12.8 Plt Count 191 MPV 10.9 Immature Gran % (Auto) 0.6 H Neut % (Auto) 81.0 H Lymph % (Auto) 7.0 L [place] % (Auto) 9.6 Eos % (Auto) 1.7 Baso % (Auto) 0.1 Lymph # (Auto) 1.2 [place] # (Auto) 1.7 H Eos # (Auto) 0.3 Baso # (Auto) 0.0 Abs Immat Gran (auto) 0.10 H Absolute Neuts (auto) 14.1 H Absolute Nucleated RBC 0.000 Nucleated RBC % (auto) 0.0 Smear Tech's Comments VERIFIED VBG pH VBG pCO2 VBG pO2 VBG HCO3 VBG O2 Saturation VBG Base Excess Sodium 139 Potassium 3.9 Chloride 103 Carbon Dioxide 26 Anion Gap 14 BUN 9 Creatinine 0.49 L Estim Creat Clear Calc 113.1 Estimated GFR > 60 Random Glucose 56 L* Calcium 7.1 L Phosphorus 2.0 L Magnesium 1.9 Albumin 2.6 L Ur L.pneumophila Ag Not Detected 10/03/20 05:17 WBC RBC Hgb Hct MCV MCH MCHC RDW Plt Count MPV Immature Gran % (Auto) Neut % (Auto) Lymph % (Auto) [place] % (Auto) Eos % (Auto) Baso % (Auto) Lymph # (Auto) [place] # (Auto) Eos # (Auto) Baso # (Auto) Abs Immat Gran (auto) Absolute Neuts (auto) Absolute Nucleated RBC Nucleated RBC % (auto) Smear Tech's Comments VBG pH 7.36 VBG pCO2 48 VBG pO2 55 VBG HCO3 27 VBG O2 Saturation 87.3 VBG Base Excess 0.9 Sodium Potassium Chloride Carbon Dioxide Anion Gap BUN Creatinine Estim Creat Clear Calc Estimated GFR Random Glucose Calcium Phosphorus Magnesium Albumin Ur L.pneumophila Ag Microbiology Microbiology Results: Microbiology 09/26/20 15:00 Sputum - Suctioned Gram Stain - Final 09/26/20 15:00 Sputum - Suctioned Sputum Culture - Final Enterobacter cloacae complex 09/22/20 21:39 Blood - Venous Blood Culture - Final No growth after 5 days. 09/22/20 21:38 Blood - Venous Blood Culture - Final No growth after 5 days. 09/22/20 22:07 Urine clean catch - Clean Catch Midstream Urine Culture - Final Escherichia coli Progress Note: A&P Assessment and plan (1) Aspiration pneumonia: Status: Acute Assessment and Plan: Assessment: 60-year-old gentleman [facility] resident secondary to underlying cerebral palsy and spastic quadriplegia admitted on 09/23/2020 with acute hypoxic respiratory failure requiring ventilatory support. Plan: Neuro: Underlying seizure disorder, continue on valproic acid. Cardiac: No acute issues. Pulmonary: Acute hypoxic respiratory failure secondary to aspiration pneumonia. Extubated 09/28/2020, however required re-intubation after approximately 6 hours for another aspiration event. Will likely require tracheostomy and parenteral gastrostomy. Family discussion in progress. C ontinue ventilatory support. Renal: No acute issues. Endo: No acute issues. GI: Unable to pass NG tube past G-E junction despite multiple attempts. Will require either PEG tube or a NG tube placed under fluoro guidance. ID: Continue on Unasyn for total 7 days (through 10/05) for underlying a spiration pneumonitis /pneumonia. Heme/Onc: No acute issues. Psych: No acute issues. Miscellaneous: No acute issues. Prophylaxis: Heparin, famotidine Diet: Nothing by mouth Critical care time spent: 60 minutes (2) Acute respiratory failure: Status: Acute (3) Cerebral palsy: Status: Acute Time Spent With Patient Time: Total time spent is greater than 50% in coordination of care (as documented) at patient's floor/unit and/or counseling patient: Total time spent with greater than 50% in coordination of care (as documented) at patient's floor/unit and/or counseling patient:: 0 Critical Care Time Critical Care Time (minutes): 60
[2020-10-03] MEDS: propofoL 1,000 MG/100 ML VIAL 11.28 MG IVCONT (15:44)
[2020-10-03] MEDS: propofoL 1,000 MG/100 ML VIAL 14.1 MG IVCONT (22:22)
[2020-10-04] VITALS (30 sets, daily range): BP systolic 92–141; BP diastolic 49–85; PULSE 78–134; RESP 20–26; TEMP 37.4–39.8; O2SAT 40–100; BMI 19.1
[2020-10-04] MEDS: Dextrose 10 % 1,000 ML 50 ML IVCONT ×2 (02:10→19:47)
[2020-10-04] MEDS: Heparin Sodium,Porcine 5,000 UNIT/ML VIAL 5000 UNIT SUBCUT ×3 (03:08→17:18)
[2020-10-04] MEDS: Albumin Human 25 % 100 ML IV (03:08)
[2020-10-04] MEDS: propofoL 1,000 MG/100 ML VIAL 14.1 MG IVCONT ×3 (04:12→17:37)
[2020-10-04] MEDS: Ampicillin Sodium/Sulbactam Na 3 GM in 0.9 % Sodium Chloride 100 ML IV ×4 (04:12→23:01)
[2020-10-04] MEDS: fentaNYL citrate/NS 1,000 MCG/100 ML PLAST..BAG 17.5 MCG IVCONT ×4 (05:09→23:00)
[2020-10-04 06:06] LABS: Basophils Percent Auto 0.1 % (0-2); Eosinophils Absolute Auto 0.2 X10*3/uL (0.0-0.4); Eosinophils Percent Auto 2.8 % (0-4); Hematocrit 23.4 % (42-52); Hemoglobin 7.6 g/dl (14.0-18.0); Imm Gran Abs Auto 0.04 X10*3/uL (0.00-0.03); Imm Gran Pct Auto 0.5 % (0.0-0.4); Lymphocytes Absolute Auto 0.7 X10*3/uL (1.2-4.9); Lymphocytes Percent Auto 8.5 % (20-40); MANUAL DIFF FLAG SCAN; Mean Corpuscular HGB Conc 32.5 g/dl (31.0-36.0); Mean Corpuscular Hemoglobin 30.6 pg (27.0-33.0); Mean Corpuscular Volume 94.4 fL (80-98); Mean Platelet Volume 10.7 fL (9.4-12.4); Monocytes Absolute Auto 0.8 X10*3/uL (0.1-1.2); Monocytes Percent Auto 10.3 % (2-11); Neutrophils Percent Auto 77.8 % (45-73); Platelet Count 173 X10*3/uL (160-400); Red Blood Count 2.48 X10*6/uL (4.60-5.80); Red Cell Distribution Width 13.1 % (11.0-16.0); SCAN SMEAR FLAG 1; White Blood Count 7.7 X10*3/uL (4.8-10.8)
[2020-10-04 06:17] LABS: Base Excess VBG 0.4 mmol/L; HCO3 VBG 25 mmol/L; Oxygen Saturation VBG 77.5 %; PCO2 VBG 38 mmhg; PO2 VBG 42 mmhg; pH VBG 7.43 (7.32-7.43)
[2020-10-04 06:29] LABS: Albumin Level 3.8 g/dL (3.5-5.0); Anion Gap 11 (12-20); Blood Urea Nitrogen 4 mg/dL (9-16); Calcium 7.9 mg/dL (8.4-10.2); Carbon Dioxide 28 mmol/L (22-29); Chloride 106 mmol/L (96-108); Creatinine Clr Calc Pharmacy 108.5; Estimated Glomerular Filt Rate > 60; Glucose Random 114 mg/dL (60-115); Phosphorus 2.5 mg/dL (2.7-4.5); Potassium 3.4 mmol/l (3.3-5.1); Sodium 142 mmol/L (135-145)
[2020-10-04 06:56] LABS: SLIDE REVIEW VERIFIED
[2020-10-04] MEDS: Chlorhexidine Gluc Oral Rinse 15 ML MOUTHWASH BUCCAL ×3 (07:21→20:04)
[2020-10-04] MEDS: 0.9 % Sodium Chloride Flush 3 ML SYRINGE IVFLUSH ×3 (07:21→23:47)
[2020-10-04] MEDS: Famotidine/PF 20 MG/2 ML VIAL IVPUSH (07:22)
--- NOTE | 2020-10-04 10:08 | MHC.CLN ---
F/U PT OFF TF FOR 48 HOURS IF RESUMED; RECOMMEND OSMOLITE AT MAX GOAL RATE 35CC/HR WITH 120CC FREE WATER FLUSH Q SHIFT TO PROVIDE 1260KCALS (1632KCALS WITH SEDATION; 35KCALS/KG), 52.6G PROTEIN (1.1G/KG), 1320CC TOTAL WATER FROM FORMULA AND FLUSHES (28.6CC/KG) MONITOR RESIDUALS, TOLERANCE AND LYTES IF TPN NEEDED; RECOMMEND TO START D15 AA5% AT 40CC/HR TO PROVIDE 682KCALS (1054KCALS WITH SEDATION), 48G PROTEIN CONSULT RD IF NEEDED
--- NOTE | 2020-10-04 10:22 | MHC.CM.PN ---
at this time pt is in ICU; intubated, vented and sedated. dc planning is deferred to a future time. cm cont. to follow.
[2020-10-04] MEDS: Lactulose 20 GM/30 ML SOLUTION 30 GM PO (10:26)
[2020-10-04] MEDS: Valproic Acid (as Sodium Salt) 250 MG in Dextrose 5 % 50 ML 52.5 MG IV ×2 (11:18→23:47)
--- NOTE | 2020-10-04 12:40 | P.PNCC_ITS ---
Subjective Subjective Date of Service: 10/05/20 Interval History: Mr Thurman was admitted to ICU on 09/23/2020 with acute resp failure presumed 2? aspiration pneumonia. The patient is a 60-year-old gentleman resident of a correction with history of developmental delay, cerebral palsy, spastic quadriplegia, seizure disorder, dysphagia, wheelchair-bound. By report the patient is nonverbal and lies in the position. The patient was sent to the ED from his correction late on 09/22/2020 because of fever vomiting and cough. The patient was found to have a left lower lobe pneumonia. Patient was intubated in the ED because of impending respiratory failure, presumed secondary to aspiration. COVID and viral PCRs were negative. The patient also had an abdominal CT which was negative except for a large stool burden within the rectum. The patient was admitted to the ICU and treated with Zosyn and vancomycin. He was also found to have a UTI. Bedside echo showed normal LV and RV size and function, with no significant valvular disease. Ultimately the patient was treated with a 7 day course of doxycycline for community-acquired pneumonia. The patient was ultimately extubated 09/28/2020, but required re-intubation later that day because of another aspiration event. Was then given a course of Unasyn. Tapering ventilator support since then. Notably, 2 attempts at placing an OG tube failed, with inability to pass the OG tube past the GE junction. Discussions with family last week (the patient?s sister is the HCP) regarding tracheostomy and PEG. On exam today, the patient is moderately sedated on propofol at 50ug and fent @ 175ug. The patient is also on D10 W at 50cc/hour. But still opens eyes and tracks at least occasionally. Also blinks to confrontation on the right side. No interaction to commands. See Vital Signs below. Heart rate is 79, blood p ressure 111/62, on Levophed 0.05 mcg. Temperature is 99.9 degrees. T-max 103.6 degrees at 01:00 this morning. Respiratory rate is 20, end-tidal CO2 31, sat is 100% on vent setting AC/PC 20, pressures 18/6, 40%, with respiratory rate 20, tidal volume 380 cc, Ve 7.7 L, PIP 24cm, sat 100%. Anicteric, no JVD, chest shows low pitched BS, RRR, S1, S2 with no murmur or gallops. The abdomen is benign. Trace central edema. LABORATORY DATA: As below. Notably, white count is significantly down today. Random glucose today was 114. Last cultures were on September 26. IMPRESSION: 1. Underlying mental retardation, cerebral palsy, spastic quadriplegia, and seizure disorder. 2. History of dysphagia, now with recurrent aspiration pneumonia. Recent difficulty placing an orogastric tube may be related to whatever the problem is that?s causing recurrent aspiration. 3. Aspiration pneumonia. (COVID PCR and IgG resent today, both negative again.) 4. Acute respiratory failure 2? above. Plan tracheostomy and PEG tomorrow or next day. I?ll get consent from his sister tomorrow morning. 5. ID: D/C Unasyn 6. Neuro: Underlying seizure disorder, continue valproic acid. 7. Nutrition: Continue D10W, pending PEG. Critical care time (including extended chart rev and mult d/w Dr. [place]): 75+ min. Physical Exam Vital Signs: Vital Signs: Last Vital Signs Temp 100.0 F 10/04/20 12:00 Pulse 83 10/04/20 12:00 Resp 20 10/04/20 12:00 BP 109/60 10/04/20 12:00 Pulse Ox 40 L 10/04/20 12:00 Body Mass Index 19.1 Objective Data Labs CBC & Chem 7: 10/05/20 05:42 10/05/20 05:42 Labs: Laboratory Results - last 24 hr 10/04/20 10/04/20 10/04/20 05:34 05:34 05:34 WBC 7.7 RBC 2.48 L Hgb 7.6 L Hct 23.4 L MCV 94.4 MCH 30.6 MCHC 32.5 RDW 13.1 Plt Count 173 MPV 10.7 Immature Gran % (Auto) 0.5 H Neut % (Auto) 77.8 H Lymph % (Auto) 8.5 L [place] % (Auto) 10.3 Eos % (Auto) 2.8 Baso % (Auto) 0.1 Lymph # (Auto) 0.7 L [place] # (Auto) 0.8 Eos # (Auto) 0.2 Baso # (Auto) 0.0 Abs Immat Gran (auto) 0.04 H Absolute Neuts (auto) 6.0 Absolute Nucleated RBC 0.000 Nucleated RBC % (auto) 0.0 Smear Tech's Comments VERIFIED VBG pH 7.43 VBG pCO2 38 VBG pO2 42 VBG HCO3 25 VBG O2 Saturation 77.5 VBG Base Excess 0.4 Sodium 142 Potassium 3.4 Chloride 106 Carbon Dioxide 28 Anion Gap 11 L BUN 4 L D Creatinine 0.53 Estim Creat Clear Calc 108.5 Estimated GFR > 60 Random Glucose 114 D Calcium 7.9 L D Phosphorus 2.5 L Magnesium 2.0 Albumin 3.8 D Microbiology Microbiology Results: Microbiology 09/26/20 15:00 Sputum - Suctioned Gram Stain - Final 09/26/20 15:00 Sputum - Suctioned Sputum Culture - Final Enterobacter cloacae complex 09/22/20 21:39 Blood - Venous Blood Culture - Final No growth after 5 days. 09/22/20 21:38 Blood - Venous Blood Culture - Final No growth after 5 days. 09/22/20 22:07 Urine clean catch - Clean Catch Midstream Urine Culture - Final Escherichia coli Progress Note: A&P Time Spent With Patient Time: Total time spent is greater than 50% in coordination of care (as documented) at patient's floor/unit and/or counseling patient: Total time spent with greater than 50% in coordination of care (as documented) at patient's floor/unit and/or counseling patient:: 0 Critical Care Time Critical Care Time (minutes): 90
[2020-10-04 14:09] LABS: SARS COV2 IgG Negative (Negative)
[2020-10-04 15:15] LABS: Influenza A PCR NEGATIVE (Negative); Influenza B PCR NEGATIVE (Negative); Resp Syncy Virus RNA Qual PCR NEGATIVE (Negative); SARS COV2 PCR INHOUSE NEGATIVE (Negative)
[2020-10-04] MEDS: Acetaminophen Supp 650 MG SUPP.RECT PR (19:47)
[2020-10-04] MEDS: Lactulose 20 GM/30 ML SOLUTION 30 GM PR (23:02)
[2020-10-05] VITALS (30 sets, daily range): BP systolic 88–126; BP diastolic 51–77; PULSE 72–102; RESP 8–20; TEMP 36.9–37.4; O2SAT 96–980; BMI 18.6
[2020-10-05] MEDS: Heparin Sodium,Porcine 5,000 UNIT/ML VIAL 5000 UNIT SUBCUT ×3 (01:42→17:44)
[2020-10-05] MEDS: propofoL 1,000 MG/100 ML VIAL 14.1 MG IVCONT ×3 (01:42→13:23)
[2020-10-05] MEDS: fentaNYL citrate/NS 1,000 MCG/100 ML PLAST..BAG 20 MCG IVCONT ×2 (03:13→08:06)
[2020-10-05] MEDS: Ampicillin Sodium/Sulbactam Na 3 GM in 0.9 % Sodium Chloride 100 ML IV ×3 (05:05→16:17)
[2020-10-05 05:59] LABS: MANUAL DIFF FLAG NO
[2020-10-05 06:02] LABS: Basophils Percent Auto 0.1 % (0-2); Eosinophils Absolute Auto 0.2 X10*3/uL (0.0-0.4); Eosinophils Percent Auto 2.6 % (0-4); Hematocrit 23.3 % (42-52); Hemoglobin 7.5 g/dl (14.0-18.0); Imm Gran Abs Auto 0.07 X10*3/uL (0.00-0.03); Lymphocytes Percent Auto 14.6 % (20-40); Mean Corpuscular HGB Conc 32.2 g/dl (31.0-36.0); Mean Corpuscular Hemoglobin 29.9 pg (27.0-33.0); Mean Corpuscular Volume 92.8 fL (80-98); Mean Platelet Volume 10.7 fL (9.4-12.4); Monocytes Absolute Auto 1.2 X10*3/uL (0.1-1.2); Monocytes Percent Auto 17.5 % (2-11); Neutrophils Absolute Auto 4.5 X10*3/uL (2.0-8.3); Neutrophils Percent Auto 64.2 % (45-73); Platelet Count 218 X10*3/uL (160-400); Red Blood Count 2.51 X10*6/uL (4.60-5.80)
[2020-10-05 06:29] LABS: Base Excess VBG -2.2 mmol/L; HCO3 VBG 21 mmol/L; PCO2 VBG 31 mmhg; PO2 VBG 51 mmhg; pH VBG 7.45 (7.32-7.43)
[2020-10-05 06:33] LABS: Anion Gap 11 (12-20); Blood Urea Nitrogen 3 mg/dL (9-16); Calcium 7.7 mg/dL (8.4-10.2); Carbon Dioxide 24 mmol/L (22-29); Chloride 110 mmol/L (96-108); Creatinine Clr Calc Pharmacy 109.6; Estimated Glomerular Filt Rate > 60; Glucose Random 103 mg/dL (60-115); Magnesium 1.8 mg/dL (1.6-2.6); Phosphorus 2.7 mg/dL (2.7-4.5); Potassium 2.9 mmol/l (3.3-5.1); Sodium 142 mmol/L (135-145)
[2020-10-05] MEDS: Famotidine/PF 20 MG/2 ML VIAL IVPUSH (08:07)
[2020-10-05] MEDS: Chlorhexidine Gluc Oral Rinse 15 ML MOUTHWASH BUCCAL ×3 (08:08→20:23)
[2020-10-05] MEDS: Lactulose 20 GM/30 ML SOLUTION 30 GM PR (08:08)
[2020-10-05] MEDS: 0.9 % Sodium Chloride Flush 3 ML SYRINGE IVFLUSH ×3 (09:13→22:48)
--- NOTE | 2020-10-05 10:11 | MHC.CLN ---
f/u pt awaiting trach/peg placement per MD will change diet to NPO following
--- NOTE | 2020-10-05 11:38 | MHC.CM.PN ---
Patient remains intubated/vented in ICU. Dr Lam is discussing trach and peg placement with sister/guardian, Sharri. Patient is from a [facility] care home. Continue to monitor for d/c needs.
[2020-10-05] MEDS: Valproic Acid (as Sodium Salt) 250 MG in Dextrose 5 % 50 ML 52.5 MG IV ×2 (12:18→22:43)
[2020-10-05] MEDS: fentaNYL citrate/NS 1,000 MCG/100 ML PLAST..BAG 12.5 MCG IVCONT (15:37)
[2020-10-05] MEDS: Dextrose 10 % 1,000 ML 50 ML IVCONT (15:37)
[2020-10-05 16:59] LABS: INTERNATIONAL NORM RATIO 1.2 (0.9-1.1); Prothrombin Time 13.7 SEC (10.8-13.0)
--- NOTE | 2020-10-05 17:29 | P.PNCC_ITS ---
Subjective Subjective Date of Service: 10/05/20 Interval History: Mr Thurman was admitted to ICU on 09/23/2020 with acute resp failure presumed 2? aspiration pneumonia. The patient is a 60-year-old gentleman who is resident of a long-term with history of developmental delay, cerebral palsy, spastic quadriplegia, seizure disorder, dysphagia, wheelchair-bound. By report the patient is nonverbal and lies in the position. HCP is his sister Sharri, who is very involved. The patient was sent to the ED from his long-term late on 09/22/2020 because of fever vomiting and cough. The patient was found to have a left lower lobe pneumonia. Patient was intubated in the ED because of impending respiratory failure, presumed secondary to aspiration. COVID and viral PCRs were negative. The patient also had an abdominal CT which was negative except for a large stool burden within the rectum. The patient was admitted to the ICU and treated with Zosyn and vancomycin. He was also found to have a UTI. Bedside echo showed normal LV and RV size and function, with no significant valvular disease. Ultimately the patient was treated with a 7 day course of doxycycline for commun ity-acquired pneumonia. The patient was ultimately extubated 09/28/2020, but required re-intubation later that day because of another aspiration event. Was then given a course of Unasyn. Tapering ventilator support since then. Notably, 2 attempts at placing an OG tube failed, with inability to pass the OG tube past the GE junction. Discussions with his sister last week regarding tracheostomy and PEG. On exam today, the patient is moderately sedated on propofol at 50ug and fent @ 125ug. The patient is also on D10 W at 50cc/hour. Opens eyes and tracks at least occasionally. Also blinks to confrontation. No interaction to commands. See Vital Signs below. Heart rate is 79, blood pressure 91/51, on Levophed 0.05 mcg. Temperature is 98.8 degrees, been afebrile x 24 hrs. Unasyn d/c?d today after 7 days. Respiratory rate is 8, end-tidal CO2 34, sat is 97% on vent setting AC/PC 8, pressures 18/6, 35%, with Vt 600cc, Ve 5.1 L, PIP 24cm. Central venous blood gas this morning showed 7.45/31/-2. Anicteric, no JVD, chest shows low pitched BS, RRR, S1, S2 with no murmur or gallops. The abdomen is benign. Trace central edema. LABORATORY DATA: As below. MICRO: Blood cultures drawn yesterday negative so far. Urine culture yesterday negative so far. Sputum Gram stain from yesterday showing floor +polys, with 2+ Gram-negative rods; culture pending. IMPRESSION: 1. Underlying mental retardation, cerebral palsy, spastic quadriplegia, and seizure disorder. 2. History of dysphagia, now with recurrent aspiration pneumonia. Recent difficulty placing an orogastric tube may be related to whatever the problem is that?s causing recurrent aspiration. 3. Aspiration pneumonia. (Mult COVID PCRs negative) 4. Acute respiratory failure 2? above. Discussed w Dr. [place] and Dr. Herrera. Plan tracheostomy and PEG tomorrow. Spoke to his sister at some length about it today. 5. ID: D/C Unasyn. Might give him GNR coverage, depending on fever curve, WBC, and culture results. 6. Neuro: Underlying seizure disorder, continue valproic acid. 7. Nutrition: Continue D10W, pending PEG. Critical care time: 60+ min. Physical Exam 2 Vital Signs: Vital Signs: Last Vital Signs Temp 98.8 F 10/05/20 17:00 Pulse 90 10/05/20 17:00 Resp 8 L 10/05/20 17:00 BP 110/59 L 10/05/20 17:00 Pulse Ox 96 10/05/20 17:00 Body Mass Index 18.6 Objective Data Labs CBC & Chem 7: 10/05/20 05:42 10/05/20 05:42 Labs: Laboratory Results - last 24 hr 10/05/20 10/05/20 10/05/20 05:42 05:42 05:42 WBC 7.0 RBC 2.51 L Hgb 7.5 L Hct 23.3 L MCV 92.8 MCH 29.9 MCHC 32.2 RDW 13.0 Plt Count 218 D MPV 10.7 Immature Gran % (Auto) 1.0 H Neut % (Auto) 64.2 Lymph % (Auto) 14.6 L [place] % (Auto) 17.5 H Eos % (Auto) 2.6 Baso % (Auto) 0.1 Lymph # (Auto) 1.0 L [place] # (Auto) 1.2 Eos # (Auto) 0.2 Baso # (Auto) 0.0 Abs Immat Gran (auto) 0.07 H Absolute Neuts (auto) 4.5 Absolute Nucleated RBC 0.000 Nucleated RBC % (auto) 0.0 PT INR VBG pH 7.45 H VBG pCO2 31 VBG pO2 51 VBG HCO3 21 VBG O2 Saturation 87.0 VBG Base Excess -2.2 Sodium 142 Potassium 2.9 L Chloride 110 H Carbon Dioxide 24 Anion Gap 11 L BUN 3 L Creatinine 0.51 Estim Creat Clear Calc 109.6 Estimated GFR > 60 Random Glucose 103 Calcium 7.7 L Phosphorus 2.7 Magnesium 1.8 10/05/20 16:40 WBC RBC Hgb Hct MCV MCH MCHC RDW Plt Count MPV Immature Gran % (Auto) Neut % (Auto) Lymph % (Auto) [place] % (Auto) Eos % (Auto) Baso % (Auto) Lymph # (Auto) [place] # (Auto) Eos # (Auto) Baso # (Auto) Abs Immat Gran (auto) Absolute Neuts (auto) Absolute Nucleated RBC Nucleated RBC % (auto) PT 13.7 H INR 1.2 H VBG pH VBG pCO2 VBG pO2 VBG HCO3 VBG O2 Saturation VBG Base Excess Sodium Potassium Chloride Carbon Dioxide Anion Gap BUN Creatinine Estim Creat Clear Calc Estimated GFR Random Glucose Calcium Phosphorus Magnesium Microbiology Microbiology Results: Microbiology 10/04/20 06:56 Sputum - Suctioned Gram Stain - Final 10/04/20 06:56 Urine [place] Urine Culture - Preliminary No growth to date. 09/26/20 15:00 Sputum - Suctioned Gram Stain - Final 09/26/20 15:00 Sputum - Suctioned Sputum Culture - Final Enterobacter cloacae complex 09/22/20 21:39 Blood - Venous Blood Culture - Final No growth after 5 days. 09/22/20 21:38 Blood - Venous Blood Culture - Final No growth after 5 days. 09/22/20 22:07 Urine clean catch - Clean Catch Midstream Urine Culture - Final Escherichia coli Progress Note: A&P Time Spent With Patient Time: Total time spent is greater than 50% in coordination of care (as documented) at patient's floor/unit and/or counseling patient: Total time spent with greater than 50% in coordination of care (as documented) at patient's floor/unit and/or counseling patient:: 0 Critical Care Time Critical Care Time (minutes): 60
[2020-10-05] MEDS: Potassium Chloride/H20 40 MEQ/100 ML PIGGYBACK 50 MEQ IV (17:44)
--- NOTE | 2020-10-05 18:28 | PC.NURSE ---
ASSUMED CARE AT 1500. PT STABLE ON VENT, SEDATED WITH FENTANYL AND PROP. PT ON LEVOPHED WHICH WAS TITRATED UP FROM 0.05 TO 0.07 MCG/KG/MIN FOR BP OF 91/51. BP CAME UP TO 114/60. PT GIVEN IV POTASSIUM REPLACEMENT FOR K OF 2.9. ERWIN WITH URINE OUTPUT OF 60 TO 100 CC/HR. PT REPOSITIONED Q2HRS. PLAN FOR TRACH AND PEG TOMORROW.
[2020-10-05] MEDS: propofoL 1,000 MG/100 ML VIAL 11.28 MG IVCONT (19:53)
[2020-10-05] MEDS: Potassium Chloride/H20 40 MEQ/100 ML PIGGYBACK 25 MEQ IV (19:54)
[2020-10-06] VITALS (29 sets, daily range): BP systolic 104–144; BP diastolic 57–88; PULSE 80–104; RESP 8–23; TEMP 36.6–37.4; O2SAT 95–100; BMI 17.7
--- NOTE | 2020-10-06 | CT_ITS ---
EXAMINATION: CT ABDOMEN AND PELVIS WITHOUT CONTRAST CLINICAL INFORMATION: OG tube position. COMPARISON: 05/23/2020 TECHNIQUE: Multidetector volumetric imaging was performed from the superior aspect of the liver through the pubic symphysis. Sagittal and coronal reformatted images were obtained on the technologist's workstation. This CT examination was performed using dose optimization techniques as appropriate, variously including the following: *Automated exposure control. *Adjustment of mA and/or kV according to patient size (this includes techniques or standardized protocols for targeted exams where dose is matched to indication/reason for exam; i.e. extremities or head). *Use of iterative reconstruction technique. DLP: 515 mGy-cm FINDINGS: LUNG BASES: Small bilateral pleural effusions with subjacent airspace opacities. There is patchy airspace opacities otherwise in the bilateral lower lungs as well. LIVER, GALLBLADDER, AND BILIARY TREE: No focal lesions or biliary duct dilatation. Gallbladder is distended without gallstones or acute inflammatory changes seen. PANCREAS: Unremarkable. SPLEEN: Unremarkable. ADRENAL GLANDS: Unremarkable. KIDNEYS AND URETERS: No renal calculi. No hydronephrosis. No perinephric stranding. No suspicious lesions identified. BLADDER: [place] catheter present. Bladder is partially distended. The bladder is compressed by the large amount of large volume stool in the rectum and sigmoid colon. GASTROINTESTINAL TRACT: Redemonstrated is a large amount of stool in the rectum and sigmoid, with associated wall thickening. Wall thickening of the rectum is increased as compared to previous. There is otherwise [id number] stool in the large colon. Nasogastric tube present, with the tip of the tube projected in the region of the body of the stomach. No dilated small bowel loops are seen. ABDOMINAL WALL: No significant hernia is appreciated. LYMPH NODES: No gross lymphadenopathy identified. VASCULAR: Normal caliber aorta. OSSEOUS STRUCTURES: No acute osseous abnormality. CT/CT abdomen pelvis wo con IMPRESSION: 1. Nasogastric tube, tip projected in the region of the body of the stomach. 2. Large amount of stool is present in the rectum and sigmoid colon, with surrounding wall thickening. The rectal wall thickening has increased as compared to previous. This could represent stercoral colitis. 3. Small bilateral pleural effusions, increased from previous. Bibasilar opacities which could be related to atelectasis, infiltrate, sequela of aspiration.
[2020-10-06] MEDS: fentaNYL citrate/NS 1,000 MCG/100 ML PLAST..BAG 10 MCG IVCONT ×2 (01:24→11:28)
[2020-10-06] MEDS: Heparin Sodium,Porcine 5,000 UNIT/ML VIAL 5000 UNIT SUBCUT ×2 (01:25→10:06)
[2020-10-06] MEDS: propofoL 1,000 MG/100 ML VIAL 11.28 MG IVCONT ×2 (03:13→10:06)
[2020-10-06 06:22] LABS: MANUAL DIFF FLAG NO
[2020-10-06 06:43] LABS: Base Excess VBG -0.1 mmol/L; HCO3 VBG 25 mmol/L; Oxygen Saturation VBG 80.6 %; PCO2 VBG 43 mmhg; PO2 VBG 47 mmhg; pH VBG 7.38 (7.32-7.43)
[2020-10-06 06:47] LABS: Anion Gap 12 (12-20); Blood Urea Nitrogen 2 mg/dL (9-16); Carbon Dioxide 24 mmol/L (22-29); Chloride 107 mmol/L (96-108); Creatinine Clr Calc Pharmacy 109.2; Estimated Glomerular Filt Rate > 60; Glucose Fasting 109 mg/dL (60-99); Sodium 139 mmol/L (135-145)
[2020-10-06 06:48] LABS: Basophils Percent Auto 0.4 % (0-2); Eosinophils Absolute Auto 0.2 X10*3/uL (0.0-0.4); Hematocrit 26.9 % (42-52); Hemoglobin 8.7 g/dl (14.0-18.0); Imm Gran Abs Auto 0.12 X10*3/uL (0.00-0.03); Imm Gran Pct Auto 1.6 % (0.0-0.4); Lymphocytes Absolute Auto 1.2 X10*3/uL (1.2-4.9); Lymphocytes Percent Auto 15.6 % (20-40); Mean Corpuscular HGB Conc 32.3 g/dl (31.0-36.0); Mean Corpuscular Volume 92.8 fL (80-98); Mean Platelet Volume 11.4 fL (9.4-12.4); Monocytes Absolute Auto 1.2 X10*3/uL (0.1-1.2); Monocytes Percent Auto 15.7 % (2-11); Neutrophils Absolute Auto 4.8 X10*3/uL (2.0-8.3); Neutrophils Percent Auto 63.7 % (45-73); Platelet Count 271 X10*3/uL (160-400); Red Cell Distribution Width 13.1 % (11.0-16.0); White Blood Count 7.6 X10*3/uL (4.8-10.8)
[2020-10-06] MEDS: 0.9 % Sodium Chloride Flush 3 ML SYRINGE IVFLUSH ×3 (07:38→23:23)
[2020-10-06] MEDS: Lactulose 20 GM/30 ML SOLUTION 30 GM PR (07:38)
[2020-10-06] MEDS: Famotidine/PF 20 MG/2 ML VIAL IVPUSH (07:38)
[2020-10-06] MEDS: Chlorhexidine Gluc Oral Rinse 15 ML MOUTHWASH BUCCAL ×3 (07:38→19:28)
--- NOTE | 2020-10-06 10:53 | MHC.CM.PN ---
Patient remains intubated/vented in ICU. Will go to OR today at 3pm for a trach/peg. Spoke with CAROL Zuniga RN via telephone at [phone]. [facility] not [facility] able [facility]ach/peg. Nadia is looking into a bed at jail in [place] that is able to have vented/trached/peg patients. T/W explained some [facility] not [facility]. She will look into this. LTAC referrals have been broadcasted within 50 miles of patient's addresss, in case the jail is not able to offer a bed. Nadia will also fax a copy of the patient's guardianship. Continue to monitor for d/c needs.
[2020-10-06] MEDS: Valproic Acid (as Sodium Salt) 250 MG in Dextrose 5 % 50 ML 52.5 MG IV ×2 (12:19→23:23)
[2020-10-06] MEDS: ceFAZolin Sodium/Dextrose,Iso 2 GM/50 ML PIGGYBACK IV (13:56)
--- NOTE | 2020-10-06 14:44 | HO.ANESPROP2 ---
HPI - Anesthesia Eval Consult details Narrative: 60 M w/ CP P/f respiratory failure PMFSH Past Medical History Medical History Anxiety Cerebral palsy GERD (gastroesophageal reflux disease) Osteoporosis Seizure Sepsis Spastic quadriplegia Functional capacity: bed bound Social History Social History Household Members: Other Household Members Other:: intermediate Housing: House Alcohol intake: unknown Smoking Status: Unknown if ever smoked Use of substances other than those prescribed or required for medical reasons: Unknown Currently Displaying Signs/Symptoms of Drug Intoxication Withdrawal: No Advance Directives: No Advance Directives Information Provided: Yes Do you have thoughts of harming others: None Do you have a plan to hurt others: No Plan Recently lost weight without trying: Unsure service: No Current occupational status: disabled [employer] Allergies Allergy/AdvReac Type Severity Reaction Status Date / Time No Known Allergies Allergy Verified 09/22/20 22:17 Home Medications Medication Instructions Recorded Confirmed Type alendronate 70 mg PO Q7D 09/22/20 09/22/20 History divalproex 250 mg PO DAILY 09/22/20 09/22/20 History divalproex 500 mg PO BEDTIME 09/22/20 09/22/20 History fluoxetine 60 mg PO DAILY@0630 09/22/20 09/22/20 History fluvoxamine 1 tab PO BEDTIME 09/22/20 09/22/20 History omeprazole 20 mg PO BID@0630,1630 09/22/20 09/22/20 History Exam Exam Date and Time: October 06, 2020 1445 Height,Weight and Vital Signs: Height 5 ft 4 in Weight 47 kg Last Vital Signs Temp 99.0 F 10/06/20 14:00 Pulse 100 10/06/20 14:00 Resp 12 10/06/20 14:00 BP 122/74 10/06/20 14:00 Pulse Ox 98 10/06/20 14:00 Pertinent Lab Results Pertinent Lab Results: Laboratory Tests 09/22/20 09/22/20 09/22/20 21:28 21:29 21:29 WBC 19.6 H RBC 4.08 L Hgb 12.6 L Hct 37.7 L MCV 92.4 MCH 30.9 MCHC 33.4 RDW 12.1 Plt Count 233 MPV 11.0 Immature Gran % (Auto) 0.3 Neut % (Auto) 92.4 H Lymph % (Auto) 1.8 L [place] % (Auto) 5.3 Eos % (Auto) 0.0 Baso % (Auto) 0.2 Lymph # (Auto) 0.4 L [place] # (Auto) 1.0 Eos # (Auto) 0.0 Baso # (Auto) 0.0 Abs Immat Gran (auto) 0.05 H Absolute Neuts (auto) 18.1 H Absolute Nucleated RBC 0.000 Nucleated RBC % (auto) 0.0 Neutrophils % (Manual) Band Neutrophils % Lymphocytes % (Manual) Monocytes % (Manual) Metamyelocytes % Abs Neuts (Manual) Lymphocytes # (Manual) Monocytes # (Manual) Metamyelocytes # Platelet Estimate Plt Morphology Comment RBC Morphology Hypochromasia Smear Tech's Comments VERIFIED PT INR D-Dimer ABG pH ABG pCO2 ABG pO2 ABG HCO3 ABG O2 Saturation ABG Base Excess VBG pH VBG pCO2 VBG pO2 VBG HCO3 VBG O2 Saturation VBG Base Excess Oxygen Given Sodium 136 Potassium 3.6 Chloride 101 Carbon Dioxide 24 Anion Gap 15 BUN 23 H Creatinine 0.80 Estim Creat Clear Calc 65.2 Estimated GFR > 60 Random Glucose 118 H Fasting Glucose Lactic Acid Lactic Acid Fup @ 2Hr Calcium 8.6 Phosphorus Magnesium Ferritin Total Bilirubin 0.4 Direct Bilirubin 0.2 AST 35 ALT 30 Alkaline Phosphatase 66 Lactate Dehydrogenase Total Creatine Kinase C-Reactive Protein Total Protein 6.7 Albumin 3.8 Lipase 39 Procalcitonin Urine Color Urine Appearance Urine pH Ur Specific [place] Urine Protein Urine Glucose (UA) Urine Ketones Urine Blood Urine Nitrite Ur Leukocyte Esterase Urine RBC Urine WBC Ur Squamous Epith Cells Urine Bacteria Urine Mucus Nasal Screen MRSA (PCR) Nasal S. aureus Screen Nasal MRSA/S.aureus Interp Vancomycin Trough Respiratory Panel Daniel Adenovirus (Rapid PCR) B.pert (TEM-PCR) B.parapertussis DNA PCR C. pneumoniae DNA (PCR) Coronavirus (PCR) Coronavirus OC43 (PCR) Coronavirus HKU1 (PCR) Coronavirus 229E (PCR) COVID-19 ([facility]) Negative COVID-19 Clin Com See Note Coronavirus NL63 (PCR) Human Metapneumovir PCR Influenza A (RT-PCR) Influenza Type A (PCR) Influenza B (RT-PCR) Influenza Type B (PCR) Ur L.pneumophila Ag M. pneumoniae (PCR) Parainfluenza 1 (PCR) Parainfluenza 2 (PCR) Parainfluenza 3 (PCR) Parainfluenza 4 (PCR) RSV (PCR) RSV RNA Qual (PCR) Entero/Rhino (PCR) SARS-CoV-2 RNA (RT-PCR) SARS-CoV-2 IgG Ab Ur Strep pneumoniae Ag Blood Type Antibody Screen 09/22/20 09/22/20 09/23/20 21:29 21:59 04:10 WBC RBC Hgb Hct MCV MCH MCHC RDW Plt Count MPV Immature Gran % (Auto) Neut % (Auto) Lymph % (Auto) [place] % (Auto) Eos % (Auto) Baso % (Auto) Lymph # (Auto) [place] # (Auto) Eos # (Auto) Baso # (Auto) Abs Immat Gran (auto) Absolute Neuts (auto) Absolute Nucleated RBC Nucleated RBC % (auto) Neutrophils % (Manual) Band Neutrophils % Lymphocytes % (Manual) Monocytes % (Manual) Metamyelocytes % Abs Neuts (Manual) Lymphocytes # (Manual) Monocytes # (Manual) Metamyelocytes # Platelet Estimate Plt Morphology Comment RBC Morphology Hypochromasia Smear Tech's Comments PT INR D-Dimer ABG pH ABG pCO2 ABG pO2 ABG HCO3 ABG O2 Saturation ABG Base Excess VBG pH VBG pCO2 VBG pO2 VBG HCO3 VBG O2 Saturation VBG Base Excess Oxygen Given Sodium Potassium Chloride Carbon Dioxide Anion Gap BUN Creatinine Estim Creat Clear Calc Estimated GFR Random Glucose Fasting Glucose Lactic Acid 2.7 H* 2.2 H* Lactic Acid Fup @ 2Hr Calcium Phosphorus Magnesium Ferritin Total Bilirubin Direct Bilirubin AST ALT Alkaline Phosphatase Lactate Dehydrogenase Total Creatine Kinase C-Reactive Protein Total Protein Albumin Lipase Procalcitonin Urine Color YELLOW Urine Appearance HAZY Urine pH 6.0 Ur Specific [place] 1.025 Urine Protein NEG Urine Glucose (UA) NEG Urine Ketones NEG Urine Blood 1+ H Urine Nitrite NEG Ur Leukocyte Esterase TRACE H Urine RBC 1-4 Urine WBC 1-4 Ur Squamous Epith Cells NONE Urine Bacteria NONE Urine Mucus 2+ Nasal Screen MRSA (PCR) Nasal S. aureus Screen Nasal MRSA/S.aureus Interp Vancomycin Trough Respiratory Panel Daniel Adenovirus (Rapid PCR) B.pert (TEM-PCR) B.parapertussis DNA PCR C. pneumoniae DNA (PCR) Coronavirus (PCR) Coronavirus OC43 (PCR) Coronavirus HKU1 (PCR) Coronavirus 229E (PCR) COVID-19 ([facility]) COVID-19 Clin Com Coronavirus NL63 (PCR) Human Metapneumovir PCR Influenza A (RT-PCR) Influenza Type A (PCR) Influenza B (RT-PCR) Influenza Type B (PCR) Ur L.pneumophila Ag M. pneumoniae (PCR) Parainfluenza 1 (PCR) Parainfluenza 2 (PCR) Parainfluenza 3 (PCR) Parainfluenza 4 (PCR) RSV (PCR) RSV RNA Qual (PCR) Entero/Rhino (PCR) SARS-CoV-2 RNA (RT-PCR) SARS-CoV-2 IgG Ab Ur Strep pneumoniae Ag Blood Type Antibody Screen 09/23/20 09/23/20 09/23/20 04:38 10:31 10:31 WBC RBC Hgb Hct MCV MCH MCHC RDW Plt Count MPV Immature Gran % (Auto) Neut % (Auto) Lymph % (Auto) [place] % (Auto) Eos % (Auto) Baso % (Auto) Lymph # (Auto) [place] # (Auto) Eos # (Auto) Baso # (Auto) Abs Immat Gran (auto) Absolute Neuts (auto) Absolute Nucleated RBC Nucleated RBC % (auto) Neutrophils % (Manual) Band Neutrophils % Lymphocytes % (Manual) Monocytes % (Manual) Metamyelocytes % Abs Neuts (Manual) Lymphocytes # (Manual) Monocytes # (Manual) Metamyelocytes # Platelet Estimate Plt Morphology Comment RBC Morphology Hypochromasia Smear Tech's Comments PT INR D-Dimer ABG pH ABG pCO2 ABG pO2 ABG HCO3 ABG O2 Saturation ABG Base Excess VBG pH 7.34 VBG pCO2 38 VBG pO2 53 VBG HCO3 20 VBG O2 Saturation 85.4 VBG Base Excess -5.3 Oxygen Given Sodium Potassium Chloride Carbon Dioxide Anion Gap BUN Creatinine Estim Creat Clear Calc Estimated GFR Random Glucose Fasting Glucose Lactic Acid Lactic Acid Fup @ 2Hr Calcium Phosphorus Magnesium Ferritin Total Bilirubin Direct Bilirubin AST ALT Alkaline Phosphatase Lactate Dehydrogenase Total Creatine Kinase C-Reactive Protein Total Protein Albumin Lipase Procalcitonin Urine Color Urine Appearance Urine pH Ur Specific [place] Urine Protein Urine Glucose (UA) Urine Ketones Urine Blood Urine Nitrite Ur Leukocyte Esterase Urine RBC Urine WBC Ur Squamous Epith Cells Urine Bacteria Urine Mucus Nasal Screen MRSA (PCR) Nasal S. aureus Screen Nasal MRSA/S.aureus Interp Vancomycin Trough Respiratory Panel Daniel See Note Adenovirus (Rapid PCR) Not Detected B.pert (TEM-PCR) Not Detected B.parapertussis DNA PCR Not Detected C. pneumoniae DNA (PCR) Not Detected Coronavirus (PCR) Coronavirus OC43 (PCR) Not Detected Coronavirus HKU1 (PCR) Not Detected Coronavirus 229E (PCR) Not Detected COVID-19 ([facility]) COVID-19 Clin Com Coronavirus NL63 (PCR) Not Detected Human Metapneumovir PCR Not Detected Influenza A (RT-PCR) Not Detected Influenza Type A (PCR) Influenza B (RT-PCR) Not Detected Influenza Type B (PCR) Ur L.pneumophila Ag Not Detected M. pneumoniae (PCR) Not Detected Parainfluenza 1 (PCR) Not Detected Parainfluenza 2 (PCR) Not Detected Parainfluenza 3 (PCR) Not Detected Parainfluenza 4 (PCR) Not Detected RSV (PCR) Not Detected RSV RNA Qual (PCR) Entero/Rhino (PCR) Not Detected SARS-CoV-2 RNA (RT-PCR) Not Detected SARS-CoV-2 IgG Ab Ur Strep pneumoniae Ag Not Detected Blood Type Antibody Screen 09/23/20 09/23/20 09/23/20 10:41 10:41 10:41 WBC 16.9 H RBC 3.32 L Hgb 10.3 L Hct 31.6 L MCV 95.2 MCH 31.0 MCHC 32.6 RDW 12.6 Plt Count 144 L D MPV 11.1 Immature Gran % (Auto) Cancelled Neut % (Auto) Cancelled Lymph % (Auto) Cancelled [place] % (Auto) Cancelled Eos % (Auto) Cancelled Baso % (Auto) Cancelled Lymph # (Auto) Cancelled [place] # (Auto) Cancelled Eos # (Auto) Cancelled Baso # (Auto) Cancelled Abs Immat Gran (auto) Cancelled Absolute Neuts (auto) Cancelled Absolute Nucleated RBC 0.000 Nucleated RBC % (auto) 0.0 Neutrophils % (Manual) 69 Band Neutrophils % 19 H Lymphocytes % (Manual) 9 L Monocytes % (Manual) 2 Metamyelocytes % 1 Abs Neuts (Manual) 14.9 H Lymphocytes # (Manual) 1.5 Monocytes # (Manual) 0.3 Metamyelocytes # 0.2 Platelet Estimate SLIGHTLY DECREASED Plt Morphology Comment NORMAL RBC Morphology NOTED Hypochromasia 1+ Smear Tech's Comments PT INR D-Dimer ABG pH ABG pCO2 ABG pO2 ABG HCO3 ABG O2 Saturation ABG Base Excess VBG pH VBG pCO2 VBG pO2 VBG HCO3 VBG O2 Saturation VBG Base Excess Oxygen Given Sodium 139 Potassium 4.2 Chloride 109 H Carbon Dioxide 26 Anion Gap 8 L BUN 16 Creatinine 0.66 Estim Creat Clear Calc 79.0 Estimated GFR > 60 Random Glucose 98 Fasting Glucose Lactic Acid Lactic Acid Fup @ 2Hr 1.1 Calcium 6.8 L D Phosphorus Magnesium Ferritin Total Bilirubin Direct Bilirubin AST ALT Alkaline Phosphatase Lactate Dehydrogenase Total Creatine Kinase C-Reactive Protein Total Protein Albumin Lipase Procalcitonin Urine Color Urine Appearance Urine pH Ur Specific [place] Urine Protein Urine Glucose (UA) Urine Ketones Urine Blood Urine Nitrite Ur Leukocyte Esterase Urine RBC Urine WBC Ur Squamous Epith Cells Urine Bacteria Urine Mucus Nasal Screen MRSA (PCR) Nasal S. aureus Screen Nasal MRSA/S.aureus Interp Vancomycin Trough Respiratory Panel Daniel Adenovirus (Rapid PCR) B.pert (TEM-PCR) B.parapertussis DNA PCR C. pneumoniae DNA (PCR) Coronavirus (PCR) Coronavirus OC43 (PCR) Coronavirus HKU1 (PCR) Coronavirus 229E (PCR) COVID-19 ([facility]) COVID-19 Clin Com Coronavirus NL63 (PCR) Human Metapneumovir PCR Influenza A (RT-PCR) Influenza Type A (PCR) Influenza B (RT-PCR) Influenza Type B (PCR) Ur L.pneumophila Ag M. pneumoniae (PCR) Parainfluenza 1 (PCR) Parainfluenza 2 (PCR) Parainfluenza 3 (PCR) Parainfluenza 4 (PCR) RSV (PCR) RSV RNA Qual (PCR) Entero/Rhino (PCR) SARS-CoV-2 RNA (RT-PCR) SARS-CoV-2 IgG Ab Ur Strep pneumoniae Ag Blood Type Antibody Screen 09/23/20 09/23/20 09/24/20 12:53 12:53 02:15 WBC RBC Hgb Hct MCV MCH MCHC RDW Plt Count MPV Immature Gran % (Auto) Neut % (Auto) Lymph % (Auto) [place] % (Auto) Eos % (Auto) Baso % (Auto) Lymph # (Auto) [place] # (Auto) Eos # (Auto) Baso # (Auto) Abs Immat Gran (auto) Absolute Neuts (auto) Absolute Nucleated RBC Nucleated RBC % (auto) Neutrophils % (Manual) Band Neutrophils % Lymphocytes % (Manual) Monocytes % (Manual) Metamyelocytes % Abs Neuts (Manual) Lymphocytes # (Manual) Monocytes # (Manual) Metamyelocytes # Platelet Estimate Plt Morphology Comment RBC Morphology Hypochromasia Smear Tech's Comments PT INR D-Dimer ABG pH ABG pCO2 ABG pO2 ABG HCO3 ABG O2 Saturation ABG Base Excess VBG pH 7.33 7.43 VBG pCO2 42 35 VBG pO2 57 51 VBG HCO3 22 23 VBG O2 Saturation 87.9 85.9 VBG Base Excess -4.2 -1.3 Oxygen Given Sodium Potassium Chloride Carbon Dioxide Anion Gap BUN Creatinine Estim Creat Clear Calc Estimated GFR Random Glucose Fasting Glucose Lactic Acid Lactic Acid Fup @ 2Hr Calcium Phosphorus Magnesium Ferritin Total Bilirubin Direct Bilirubin AST ALT Alkaline Phosphatase Lactate Dehydrogenase Total Creatine Kinase C-Reactive Protein Total Protein Albumin Lipase Procalcitonin Urine Color Urine Appearance Urine pH Ur Specific [place] Urine Protein Urine Glucose (UA) Urine Ketones Urine Blood Urine Nitrite Ur Leukocyte Esterase Urine RBC Urine WBC Ur Squamous Epith Cells Urine Bacteria Urine Mucus Nasal Screen MRSA (PCR) Nasal S. aureus Screen Nasal MRSA/S.aureus Interp Vancomycin Trough < 3.0 L Respiratory Panel Daniel Adenovirus (Rapid PCR) B.pert (TEM-PCR) B.parapertussis DNA PCR C. pneumoniae DNA (PCR) Coronavirus (PCR) Coronavirus OC43 (PCR) Coronavirus HKU1 (PCR) Coronavirus 229E (PCR) COVID-19 ([facility]) COVID-19 Clin Com Coronavirus NL63 (PCR) Human Metapneumovir PCR Influenza A (RT-PCR) Influenza Type A (PCR) Influenza B (RT-PCR) Influenza Type B (PCR) Ur L.pneumophila Ag M. pneumoniae (PCR) Parainfluenza 1 (PCR) Parainfluenza 2 (PCR) Parainfluenza 3 (PCR) Parainfluenza 4 (PCR) RSV (PCR) RSV RNA Qual (PCR) Entero/Rhino (PCR) SARS-CoV-2 RNA (RT-PCR) SARS-CoV-2 IgG Ab Ur Strep pneumoniae Ag Blood Type Antibody Screen 09/24/20 09/24/20 09/24/20 05:20 05:20 05:20 WBC 11.3 H RBC 3.07 L Hgb 9.2 L Hct 28.4 L MCV 92.5 MCH 30.0 MCHC 32.4 RDW 12.4 Plt Count 140 L MPV 11.9 Immature Gran % (Auto) 0.4 Neut % (Auto) 93.6 H Lymph % (Auto) 2.1 L [place] % (Auto) 3.8 Eos % (Auto) 0.0 Baso % (Auto) 0.1 Lymph # (Auto) 0.2 L [place] # (Auto) 0.4 Eos # (Auto) 0.0 Baso # (Auto) 0.0 Abs Immat Gran (auto) 0.04 H Absolute Neuts (auto) 10.6 H Absolute Nucleated RBC 0.000 Nucleated RBC % (auto) 0.0 Neutrophils % (Manual) Band Neutrophils % Lymphocytes % (Manual) Monocytes % (Manual) Metamyelocytes % Abs Neuts (Manual) Lymphocytes # (Manual) Monocytes # (Manual) Metamyelocytes # Platelet Estimate Plt Morphology Comment RBC Morphology Hypochromasia Smear Tech's Comments VERIFIED PT INR D-Dimer 991 ABG pH ABG pCO2 ABG pO2 ABG HCO3 ABG O2 Saturation ABG Base Excess VBG pH VBG pCO2 VBG pO2 VBG HCO3 VBG O2 Saturation VBG Base Excess Oxygen Given Sodium 141 Potassium 3.1 L D Chloride 111 H Carbon Dioxide 23 Anion Gap 10 L BUN 13 Creatinine 0.59 Estim Creat Clear Calc 88.4 Estimated GFR > 60 Random Glucose 136 H D Fasting Glucose Lactic Acid Lactic Acid Fup @ 2Hr Calcium 6.6 L Phosphorus 1.8 L Magnesium 2.1 Ferritin Total Bilirubin Direct Bilirubin AST ALT Alkaline Phosphatase Lactate Dehydrogenase 742 H Total Creatine Kinase 517 H C-Reactive Protein 28.94 H Total Protein Albumin Lipase Procalcitonin Urine Color Urine Appearance Urine pH Ur Specific [place] Urine Protein Urine Glucose (UA) Urine Ketones Urine Blood Urine Nitrite Ur Leukocyte Esterase Urine RBC Urine WBC Ur Squamous Epith Cells Urine Bacteria Urine Mucus Nasal Screen MRSA (PCR) Nasal S. aureus Screen Nasal MRSA/S.aureus Interp Vancomycin Trough Respiratory Panel Daniel Adenovirus (Rapid PCR) B.pert (TEM-PCR) B.parapertussis DNA PCR C. pneumoniae DNA (PCR) Coronavirus (PCR) Coronavirus OC43 (PCR) Coronavirus HKU1 (PCR) Coronavirus 229E (PCR) COVID-19 ([facility]) COVID-19 Clin Com Coronavirus NL63 (PCR) Human Metapneumovir PCR Influenza A (RT-PCR) Influenza Type A (PCR) Influenza B (RT-PCR) Influenza Type B (PCR) Ur L.pneumophila Ag M. pneumoniae (PCR) Parainfluenza 1 (PCR) Parainfluenza 2 (PCR) Parainfluenza 3 (PCR) Parainfluenza 4 (PCR) RSV (PCR) RSV RNA Qual (PCR) Entero/Rhino (PCR) SARS-CoV-2 RNA (RT-PCR) SARS-CoV-2 IgG Ab Ur Strep pneumoniae Ag Blood Type Antibody Screen 09/24/20 09/24/20 09/24/20 05:20 05:20 05:20 WBC RBC Hgb Hct MCV MCH MCHC RDW Plt Count MPV Immature Gran % (Auto) Neut % (Auto) Lymph % (Auto) [place] % (Auto) Eos % (Auto) Baso % (Auto) Lymph # (Auto) [place] # (Auto) Eos # (Auto) Baso # (Auto) Abs Immat Gran (auto) Absolute Neuts (auto) Absolute Nucleated RBC Nucleated RBC % (auto) Neutrophils % (Manual) Band Neutrophils % Lymphocytes % (Manual) Monocytes % (Manual) Metamyelocytes % Abs Neuts (Manual) Lymphocytes # (Manual) Monocytes # (Manual) Metamyelocytes # Platelet Estimate Plt Morphology Comment RBC Morphology Hypochromasia Smear Tech's Comments PT INR D-Dimer ABG pH ABG pCO2 ABG pO2 ABG HCO3 ABG O2 Saturation ABG Base Excess VBG pH 7.43 VBG pCO2 33 VBG pO2 46 VBG HCO3 21 VBG O2 Saturation 83.8 VBG Base Excess -2.6 Oxygen Given Sodium Potassium Chloride Carbon Dioxide Anion Gap BUN Creatinine Estim Creat Clear Calc Estimated GFR Random Glucose Fasting Glucose Lactic Acid 0.7 Lactic Acid Fup @ 2Hr Calcium Phosphorus Magnesium Ferritin Total Bilirubin Direct Bilirubin AST ALT Alkaline Phosphatase Lactate Dehydrogenase Total Creatine Kinase C-Reactive Protein Total Protein Albumin Lipase Procalcitonin 3.44 Urine Color Urine Appearance Urine pH Ur Specific [place] Urine Protein Urine Glucose (UA) Urine Ketones Urine Blood Urine Nitrite Ur Leukocyte Esterase Urine RBC Urine WBC Ur Squamous Epith Cells Urine Bacteria Urine Mucus Nasal Screen MRSA (PCR) Nasal S. aureus Screen Nasal MRSA/S.aureus Interp Vancomycin Trough Respiratory Panel Daniel Adenovirus (Rapid PCR) B.pert (TEM-PCR) B.parapertussis DNA PCR C. pneumoniae DNA (PCR) Coronavirus (PCR) Coronavirus OC43 (PCR) Coronavirus HKU1 (PCR) Coronavirus 229E (PCR) COVID-19 ([facility]) COVID-19 Clin Com Coronavirus NL63 (PCR) Human Metapneumovir PCR Influenza A (RT-PCR) Influenza Type A (PCR) Influenza B (RT-PCR) Influenza Type B (PCR) Ur L.pneumophila Ag M. pneumoniae (PCR) Parainfluenza 1 (PCR) Parainfluenza 2 (PCR) Parainfluenza 3 (PCR) Parainfluenza 4 (PCR) RSV (PCR) RSV RNA Qual (PCR) Entero/Rhino (PCR) SARS-CoV-2 RNA (RT-PCR) SARS-CoV-2 IgG Ab Ur Strep pneumoniae Ag Blood Type Antibody Screen 09/24/20 09/24/20 09/24/20 12:30 15:05 22:29 WBC RBC Hgb Hct MCV MCH MCHC RDW Plt Count MPV Immature Gran % (Auto) Neut % (Auto) Lymph % (Auto) [place] % (Auto) Eos % (Auto) Baso % (Auto) Lymph # (Auto) [place] # (Auto) Eos # (Auto) Baso # (Auto) Abs Immat Gran (auto) Absolute Neuts (auto) Absolute Nucleated RBC Nucleated RBC % (auto) Neutrophils % (Manual) Band Neutrophils % Lymphocytes % (Manual) Monocytes % (Manual) Metamyelocytes % Abs Neuts (Manual) Lymphocytes # (Manual) Monocytes # (Manual) Metamyelocytes # Platelet Estimate Plt Morphology Comment RBC Morphology Hypochromasia Smear Tech's Comments PT INR D-Dimer ABG pH ABG pCO2 ABG pO2 ABG HCO3 ABG O2 Saturation ABG Base Excess VBG pH VBG pCO2 VBG pO2 VBG HCO3 VBG O2 Saturation VBG Base Excess Oxygen Given Sodium Potassium Chloride Carbon Dioxide Anion Gap BUN Creatinine Estim Creat Clear Calc Estimated GFR Random Glucose Fasting Glucose Lactic Acid Lactic Acid Fup @ 2Hr Calcium Phosphorus Magnesium Ferritin Total Bilirubin Direct Bilirubin AST ALT Alkaline Phosphatase Lactate Dehydrogenase Total Creatine Kinase C-Reactive Protein Total Protein Albumin Lipase Procalcitonin Urine Color Urine Appearance Urine pH Ur Specific [place] Urine Protein Urine Glucose (UA) Urine Ketones Urine Blood Urine Nitrite Ur Leukocyte Esterase Urine RBC Urine WBC Ur Squamous Epith Cells Urine Bacteria Urine Mucus Nasal Screen MRSA (PCR) NEGATIVE Nasal S. aureus Screen NEGATIVE Nasal MRSA/S.aureus Interp SEE NOTE Vancomycin Trough 5.3 L Respiratory Panel Daniel Adenovirus (Rapid PCR) B.pert (TEM-PCR) B.parapertussis DNA PCR C. pneumoniae DNA (PCR) Coronavirus (PCR) Coronavirus OC43 (PCR) Coronavirus HKU1 (PCR) Coronavirus 229E (PCR) COVID-19 ([facility]) Negative COVID-19 Clin Com See Note Coronavirus NL63 (PCR) Human Metapneumovir PCR Influenza A (RT-PCR) Influenza Type A (PCR) Influenza B (RT-PCR) Influenza Type B (PCR) Ur L.pneumophila Ag M. pneumoniae (PCR) Parainfluenza 1 (PCR) Parainfluenza 2 (PCR) Parainfluenza 3 (PCR) Parainfluenza 4 (PCR) RSV (PCR) RSV RNA Qual (PCR) Entero/Rhino (PCR) SARS-CoV-2 RNA (RT-PCR) SARS-CoV-2 IgG Ab Ur Strep pneumoniae Ag Blood Type Antibody Screen 09/25/20 09/25/20 09/25/20 05:20 05:20 05:20 WBC 13.6 H RBC 2.92 L Hgb 8.9 L Hct 26.7 L MCV 91.4 MCH 30.5 MCHC 33.3 RDW 12.5 Plt Count 153 L MPV 12.1 Immature Gran % (Auto) 0.5 H Neut % (Auto) 93.4 H Lymph % (Auto) 1.9 L [place] % (Auto) 4.1 Eos % (Auto) 0.0 Baso % (Auto) 0.1 Lymph # (Auto) 0.3 L [place] # (Auto) 0.6 Eos # (Auto) 0.0 Baso # (Auto) 0.0 Abs Immat Gran (auto) 0.07 H Absolute Neuts (auto) 12.7 H Absolute Nucleated RBC 0.000 Nucleated RBC % (auto) 0.0 Neutrophils % (Manual) Band Neutrophils % Lymphocytes % (Manual) Monocytes % (Manual) Metamyelocytes % Abs Neuts (Manual) Lymphocytes # (Manual) Monocytes # (Manual) Metamyelocytes # Platelet Estimate Plt Morphology Comment RBC Morphology Hypochromasia Smear Tech's Comments VERIFIED PT INR D-Dimer 358 ABG pH ABG pCO2 ABG pO2 ABG HCO3 ABG O2 Saturation ABG Base Excess VBG pH VBG pCO2 VBG pO2 VBG HCO3 VBG O2 Saturation VBG Base Excess Oxygen Given Sodium 142 Potassium 3.2 L Chloride 112 H Carbon Dioxide 25 Anion Gap 8 L BUN 12 Creatinine 0.55 Estim Creat Clear Calc 95.4 Estimated GFR > 60 Random Glucose 211 H D Fasting Glucose Lactic Acid Lactic Acid Fup @ 2Hr Calcium 7.0 L D Phosphorus 1.3 L Magnesium 2.2 Ferritin 608 H Total Bilirubin Direct Bilirubin AST ALT Alkaline Phosphatase Lactate Dehydrogenase 361 H Total Creatine Kinase 831 H D C-Reactive Protein Total Protein Albumin Lipase Procalcitonin Urine Color Urine Appearance Urine pH Ur Specific [place] Urine Protein Urine Glucose (UA) Urine Ketones Urine Blood Urine Nitrite Ur Leukocyte Esterase Urine RBC Urine WBC Ur Squamous Epith Cells Urine Bacteria Urine Mucus Nasal Screen MRSA (PCR) Nasal S. aureus Screen Nasal MRSA/S.aureus Interp Vancomycin Trough Respiratory Panel Daniel Adenovirus (Rapid PCR) B.pert (TEM-PCR) B.parapertussis DNA PCR C. pneumoniae DNA (PCR) Coronavirus (PCR) Coronavirus OC43 (PCR) Coronavirus HKU1 (PCR) Coronavirus 229E (PCR) COVID-19 ([facility]) COVID-19 Clin Com Coronavirus NL63 (PCR) Human Metapneumovir PCR Influenza A (RT-PCR) Influenza Type A (PCR) Influenza B (RT-PCR) Influenza Type B (PCR) Ur L.pneumophila Ag M. pneumoniae (PCR) Parainfluenza 1 (PCR) Parainfluenza 2 (PCR) Parainfluenza 3 (PCR) Parainfluenza 4 (PCR) RSV (PCR) RSV RNA Qual (PCR) Entero/Rhino (PCR) SARS-CoV-2 RNA (RT-PCR) SARS-CoV-2 IgG Ab Ur Strep pneumoniae Ag Blood Type Antibody Screen 09/25/20 09/25/20 09/26/20 05:20 05:20 01:01 WBC RBC Hgb Hct MCV MCH MCHC RDW Plt Count MPV Immature Gran % (Auto) Neut % (Auto) Lymph % (Auto) [place] % (Auto) Eos % (Auto) Baso % (Auto) Lymph # (Auto) [place] # (Auto) Eos # (Auto) Baso # (Auto) Abs Immat Gran (auto) Absolute Neuts (auto) Absolute Nucleated RBC Nucleated RBC % (auto) Neutrophils % (Manual) Band Neutrophils % Lymphocytes % (Manual) Monocytes % (Manual) Metamyelocytes % Abs Neuts (Manual) Lymphocytes # (Manual) Monocytes # (Manual) Metamyelocytes # Platelet Estimate Plt Morphology Comment RBC Morphology Hypochromasia Smear Tech's Comments PT INR D-Dimer ABG pH ABG pCO2 ABG pO2 ABG HCO3 ABG O2 Saturation ABG Base Excess VBG pH 7.47 H VBG pCO2 35 VBG pO2 46 VBG HCO3 25 VBG O2 Saturation Not Reportable VBG Base Excess 1.7 Oxygen Given Sodium Potassium Chloride Carbon Dioxide Anion Gap BUN Creatinine Estim Creat Clear Calc Estimated GFR Random Glucose Fasting Glucose Lactic Acid Lactic Acid Fup @ 2Hr Calcium Phosphorus Magnesium Ferritin Total Bilirubin Direct Bilirubin AST ALT Alkaline Phosphatase Lactate Dehydrogenase Total Creatine Kinase C-Reactive Protein Total Protein Albumin Lipase Procalcitonin 1.88 Urine Color Urine Appearance Urine pH Ur Specific [place] Urine Protein Urine Glucose (UA) Urine Ketones Urine Blood Urine Nitrite Ur Leukocyte Esterase Urine RBC Urine WBC Ur Squamous Epith Cells Urine Bacteria Urine Mucus Nasal Screen MRSA (PCR) Nasal S. aureus Screen Nasal MRSA/S.aureus Interp Vancomycin Trough 8.9 L Respiratory Panel Daniel Adenovirus (Rapid PCR) B.pert (TEM-PCR) B.parapertussis DNA PCR C. pneumoniae DNA (PCR) Coronavirus (PCR) Coronavirus OC43 (PCR) Coronavirus HKU1 (PCR) Coronavirus 229E (PCR) COVID-19 ([facility]) COVID-19 Clin Com Coronavirus NL63 (PCR) Human Metapneumovir PCR Influenza A (RT-PCR) Influenza Type A (PCR) Influenza B (RT-PCR) Influenza Type B (PCR) Ur L.pneumophila Ag M. pneumoniae (PCR) Parainfluenza 1 (PCR) Parainfluenza 2 (PCR) Parainfluenza 3 (PCR) Parainfluenza 4 (PCR) RSV (PCR) RSV RNA Qual (PCR) Entero/Rhino (PCR) SARS-CoV-2 RNA (RT-PCR) SARS-CoV-2 IgG Ab Ur Strep pneumoniae Ag Blood Type Antibody Screen 09/26/20 09/26/20 09/26/20 04:50 04:50 04:50 WBC 20.5 H RBC 3.06 L Hgb 9.5 L Hct 28.4 L MCV 92.8 MCH 31.0 MCHC 33.5 RDW 13.0 Plt Count 198 D MPV 12.2 Immature Gran % (Auto) 1.5 H Neut % (Auto) 92.1 H Lymph % (Auto) 2.6 L [place] % (Auto) 3.7 Eos % (Auto) 0.0 Baso % (Auto) 0.1 Lymph # (Auto) 0.5 L [place] # (Auto) 0.8 Eos # (Auto) 0.0 Baso # (Auto) 0.0 Abs Immat Gran (auto) 0.30 H Absolute Neuts (auto) 18.9 H Absolute Nucleated RBC 0.000 Nucleated RBC % (auto) 0.0 Neutrophils % (Manual) Band Neutrophils % Lymphocytes % (Manual) Monocytes % (Manual) Metamyelocytes % Abs Neuts (Manual) Lymphocytes # (Manual) Monocytes # (Manual) Metamyelocytes # Platelet Estimate Plt Morphology Comment RBC Morphology Hypochromasia Smear Tech's Comments VERIFIED PT INR D-Dimer ABG pH ABG pCO2 ABG pO2 ABG HCO3 ABG O2 Saturation ABG Base Excess VBG pH 7.40 VBG pCO2 34 VBG pO2 47 VBG HCO3 21 VBG O2 Saturation 84.2 VBG Base Excess -3.4 Oxygen Given Sodium 142 Potassium 4.0 D Chloride 112 H Carbon Dioxide 20 L Anion Gap 14 BUN 16 Creatinine 0.52 Estim Creat Clear Calc 89.1 Estimated GFR > 60 Random Glucose 125 H D Fasting Glucose Lactic Acid Lactic Acid Fup @ 2Hr Calcium 6.6 L Phosphorus 3.0 Magnesium 2.3 Ferritin Total Bilirubin Direct Bilirubin AST ALT Alkaline Phosphatase Lactate Dehydrogenase Total Creatine Kinase C-Reactive Protein Total Protein Albumin Lipase Procalcitonin Urine Color Urine Appearance Urine pH Ur Specific [place] Urine Protein Urine Glucose (UA) Urine Ketones Urine Blood Urine Nitrite Ur Leukocyte Esterase Urine RBC Urine WBC Ur Squamous Epith Cells Urine Bacteria Urine Mucus Nasal Screen MRSA (PCR) Nasal S. aureus Screen Nasal MRSA/S.aureus Interp Vancomycin Trough Respiratory Panel Daniel Adenovirus (Rapid PCR) B.pert (TEM-PCR) B.parapertussis DNA PCR C. pneumoniae DNA (PCR) Coronavirus (PCR) Coronavirus OC43 (PCR) Coronavirus HKU1 (PCR) Coronavirus 229E (PCR) COVID-19 ([facility]) COVID-19 Clin Com Coronavirus NL63 (PCR) Human Metapneumovir PCR Influenza A (RT-PCR) Influenza Type A (PCR) Influenza B (RT-PCR) Influenza Type B (PCR) Ur L.pneumophila Ag M. pneumoniae (PCR) Parainfluenza 1 (PCR) Parainfluenza 2 (PCR) Parainfluenza 3 (PCR) Parainfluenza 4 (PCR) RSV (PCR) RSV RNA Qual (PCR) Entero/Rhino (PCR) SARS-CoV-2 RNA (RT-PCR) SARS-CoV-2 IgG Ab Ur Strep pneumoniae Ag Blood Type Antibody Screen 09/26/20 09/27/20 09/27/20 10:15 05:27 05:27 WBC 11.5 H RBC 2.92 L Hgb 9.0 L Hct 27.3 L MCV 93.5 MCH 30.8 MCHC 33.0 RDW 12.8 Plt Count 185 MPV 12.0 Immature Gran % (Auto) 1.2 H Neut % (Auto) 88.6 H Lymph % (Auto) 3.6 L [place] % (Auto) 6.5 Eos % (Auto) 0.0 Baso % (Auto) 0.1 Lymph # (Auto) 0.4 L [place] # (Auto) 0.8 Eos # (Auto) 0.0 Baso # (Auto) 0.0 Abs Immat Gran (auto) 0.14 H Absolute Neuts (auto) 10.2 H Absolute Nucleated RBC 0.000 Nucleated RBC % (auto) 0.0 Neutrophils % (Manual) Band Neutrophils % Lymphocytes % (Manual) Monocytes % (Manual) Metamyelocytes % Abs Neuts (Manual) Lymphocytes # (Manual) Monocytes # (Manual) Metamyelocytes # Platelet Estimate Plt Morphology Comment RBC Morphology Hypochromasia Smear Tech's Comments VERIFIED PT INR D-Dimer ABG pH 7.44 ABG pCO2 29 L ABG pO2 > 450 H ABG HCO3 19 L ABG O2 Saturation 98.8 ABG Base Excess -4.3 VBG pH VBG pCO2 VBG pO2 VBG HCO3 VBG O2 Saturation VBG Base Excess Oxygen Given 100% Sodium 137 Potassium 3.6 Chloride 108 Carbon Dioxide 18 L Anion Gap 15 BUN 15 Creatinine 0.47 L Estim Creat Clear Calc 109.5 Estimated GFR > 60 Random Glucose 132 H Fasting Glucose Lactic Acid Lactic Acid Fup @ 2Hr Calcium 6.7 L Phosphorus 2.3 L Magnesium 2.5 Ferritin Total Bilirubin Direct Bilirubin AST ALT Alkaline Phosphatase Lactate Dehydrogenase Total Creatine Kinase C-Reactive Protein Total Protein Albumin Lipase Procalcitonin Urine Color Urine Appearance Urine pH Ur Specific [place] Urine Protein Urine Glucose (UA) Urine Ketones Urine Blood Urine Nitrite Ur Leukocyte Esterase Urine RBC Urine WBC Ur Squamous Epith Cells Urine Bacteria Urine Mucus Nasal Screen MRSA (PCR) Nasal S. aureus Screen Nasal MRSA/S.aureus Interp Vancomycin Trough Respiratory Panel Daniel Adenovirus (Rapid PCR) B.pert (TEM-PCR) B.parapertussis DNA PCR C. pneumoniae DNA (PCR) Coronavirus (PCR) Coronavirus OC43 (PCR) Coronavirus HKU1 (PCR) Coronavirus 229E (PCR) COVID-19 ([facility]) COVID-19 Clin Com Coronavirus NL63 (PCR) Human Metapneumovir PCR Influenza A (RT-PCR) Influenza Type A (PCR) Influenza B (RT-PCR) Influenza Type B (PCR) Ur L.pneumophila Ag M. pneumoniae (PCR) Parainfluenza 1 (PCR) Parainfluenza 2 (PCR) Parainfluenza 3 (PCR) Parainfluenza 4 (PCR) RSV (PCR) RSV RNA Qual (PCR) Entero/Rhino (PCR) SARS-CoV-2 RNA (RT-PCR) SARS-CoV-2 IgG Ab Ur Strep pneumoniae Ag Blood Type Antibody Screen 09/27/20 09/27/20 09/28/20 05:27 17:54 05:27 WBC 15.1 H RBC 2.57 L Hgb 8.0 L Hct 24.3 L MCV 94.6 MCH 31.1 MCHC 32.9 RDW 13.0 Plt Count 168 MPV 11.3 Immature Gran % (Auto) 1.1 H Neut % (Auto) 83.3 H Lymph % (Auto) 7.4 L [place] % (Auto) 8.1 Eos % (Auto) 0.0 Baso % (Auto) 0.1 Lymph # (Auto) 1.1 L [place] # (Auto) 1.2 Eos # (Auto) 0.0 Baso # (Auto) 0.0 Abs Immat Gran (auto) 0.17 H Absolute Neuts (auto) 12.6 H Absolute Nucleated RBC 0.020 H Nucleated RBC % (auto) 0.1 Neutrophils % (Manual) Band Neutrophils % Lymphocytes % (Manual) Monocytes % (Manual) Metamyelocytes % Abs Neuts (Manual) Lymphocytes # (Manual) Monocytes # (Manual) Metamyelocytes # Platelet Estimate Plt Morphology Comment RBC Morphology Hypochromasia Smear Tech's Comments PT INR D-Dimer ABG pH ABG pCO2 ABG pO2 ABG HCO3 ABG O2 Saturation ABG Base Excess VBG pH 7.39 VBG pCO2 38 VBG pO2 66 VBG HCO3 22 VBG O2 Saturation 92.2 VBG Base Excess -2.6 Oxygen Given Sodium 138 Potassium 3.8 Chloride 105 Carbon Dioxide 27 Anion Gap 10 L BUN 15 Creatinine 0.56 Estim Creat Clear Calc 91.9 Estimated GFR > 60 Random Glucose 120 H Fasting Glucose Lactic Acid Lactic Acid Fup @ 2Hr Calcium 7.8 L D Phosphorus Magnesium Ferritin Total Bilirubin Direct Bilirubin AST ALT Alkaline Phosphatase Lactate Dehydrogenase Total Creatine Kinase C-Reactive Protein Total Protein Albumin Lipase Procalcitonin Urine Color Urine Appearance Urine pH Ur Specific [place] Urine Protein Urine Glucose (UA) Urine Ketones Urine Blood Urine Nitrite Ur Leukocyte Esterase Urine RBC Urine WBC Ur Squamous Epith Cells Urine Bacteria Urine Mucus Nasal Screen MRSA (PCR) Nasal S. aureus Screen Nasal MRSA/S.aureus Interp Vancomycin Trough Respiratory Panel Daniel Adenovirus (Rapid PCR) B.pert (TEM-PCR) B.parapertussis DNA PCR C. pneumoniae DNA (PCR) Coronavirus (PCR) Coronavirus OC43 (PCR) Coronavirus HKU1 (PCR) Coronavirus 229E (PCR) COVID-19 ([facility]) COVID-19 Clin Com Coronavirus NL63 (PCR) Human Metapneumovir PCR Influenza A (RT-PCR) Influenza Type A (PCR) Influenza B (RT-PCR) Influenza Type B (PCR) Ur L.pneumophila Ag M. pneumoniae (PCR) Parainfluenza 1 (PCR) Parainfluenza 2 (PCR) Parainfluenza 3 (PCR) Parainfluenza 4 (PCR) RSV (PCR) RSV RNA Qual (PCR) Entero/Rhino (PCR) SARS-CoV-2 RNA (RT-PCR) SARS-CoV-2 IgG Ab Ur Strep pneumoniae Ag Blood Type Antibody Screen 09/28/20 09/28/20 09/29/20 05:27 05:27 05:25 WBC 17.2 H RBC 2.72 L Hgb 8.3 L Hct 25.7 L MCV 94.5 MCH 30.5 MCHC 32.3 RDW 13.2 Plt Count 159 L MPV 11.3 Immature Gran % (Auto) 1.0 H Neut % (Auto) 81.6 H Lymph % (Auto) 11.9 L [place] % (Auto) 5.1 Eos % (Auto) 0.3 Baso % (Auto) 0.1 Lymph # (Auto) 2.0 [place] # (Auto) 0.9 Eos # (Auto) 0.1 Baso # (Auto) 0.0 Abs Immat Gran (auto) 0.17 H Absolute Neuts (auto) 14.0 H Absolute Nucleated RBC 0.000 Nucleated RBC % (auto) 0.0 Neutrophils % (Manual) Band Neutrophils % Lymphocytes % (Manual) Monocytes % (Manual) Metamyelocytes % Abs Neuts (Manual) Lymphocytes # (Manual) Monocytes # (Manual) Metamyelocytes # Platelet Estimate Plt Morphology Comment RBC Morphology Hypochromasia Smear Tech's Comments PT INR D-Dimer ABG pH ABG pCO2 ABG pO2 ABG HCO3 ABG O2 Saturation ABG Base Excess VBG pH 7.41 VBG pCO2 51 VBG pO2 42 VBG HCO3 32 VBG O2 Saturation 79.5 VBG Base Excess 6.3 Oxygen Given Sodium 142 Potassium 3.6 Chloride 104 Carbon Dioxide 32 H Anion Gap 10 L BUN 17 H Creatinine 0.62 Estim Creat Clear Calc 83.0 Estimated GFR > 60 Random Glucose 101 Fasting Glucose Lactic Acid Lactic Acid Fup @ 2Hr Calcium 8.3 L D Phosphorus 2.2 L Magnesium 2.2 Ferritin Total Bilirubin 0.5 Direct Bilirubin AST 38 H ALT 171 H Alkaline Phosphatase 40 D Lactate Dehydrogenase Total Creatine Kinase C-Reactive Protein Total Protein 5.6 L Albumin 4.0 Lipase Procalcitonin Urine Color Urine Appearance Urine pH Ur Specific [place] Urine Protein Urine Glucose (UA) Urine Ketones Urine Blood Urine Nitrite Ur Leukocyte Esterase Urine RBC Urine WBC Ur Squamous Epith Cells Urine Bacteria Urine Mucus Nasal Screen MRSA (PCR) Nasal S. aureus Screen Nasal MRSA/S.aureus Interp Vancomycin Trough Respiratory Panel Daniel Adenovirus (Rapid PCR) B.pert (TEM-PCR) B.parapertussis DNA PCR C. pneumoniae DNA (PCR) Coronavirus (PCR) Coronavirus OC43 (PCR) Coronavirus HKU1 (PCR) Coronavirus 229E (PCR) COVID-19 ([facility]) COVID-19 Clin Com Coronavirus NL63 (PCR) Human Metapneumovir PCR Influenza A (RT-PCR) Influenza Type A (PCR) Influenza B (RT-PCR) Influenza Type B (PCR) Ur L.pneumophila Ag M. pneumoniae (PCR) Parainfluenza 1 (PCR) Parainfluenza 2 (PCR) Parainfluenza 3 (PCR) Parainfluenza 4 (PCR) RSV (PCR) RSV RNA Qual (PCR) Entero/Rhino (PCR) SARS-CoV-2 RNA (RT-PCR) SARS-CoV-2 IgG Ab Ur Strep pneumoniae Ag Blood Type Antibody Screen 09/29/20 09/29/20 09/30/20 05:25 05:25 06:10 WBC 13.8 H RBC 2.94 L Hgb 9.0 L Hct 27.4 L MCV 93.2 MCH 30.6 MCHC 32.8 RDW 13.1 Plt Count 163 MPV 11.6 Immature Gran % (Auto) 0.7 H Neut % (Auto) 79.6 H Lymph % (Auto) 10.7 L [place] % (Auto) 6.7 Eos % (Auto) 2.2 Baso % (Auto) 0.1 Lymph # (Auto) 1.5 [place] # (Auto) 0.9 Eos # (Auto) 0.3 Baso # (Auto) 0.0 Abs Immat Gran (auto) 0.10 H Absolute Neuts (auto) 11.0 H Absolute Nucleated RBC 0.000 Nucleated RBC % (auto) 0.0 Neutrophils % (Manual) Band Neutrophils % Lymphocytes % (Manual) Monocytes % (Manual) Metamyelocytes % Abs Neuts (Manual) Lymphocytes # (Manual) Monocytes # (Manual) Metamyelocytes # Platelet Estimate Plt Morphology Comment RBC Morphology Hypochromasia Smear Tech's Comments PT INR D-Dimer ABG pH ABG pCO2 ABG pO2 ABG HCO3 ABG O2 Saturation ABG Base Excess VBG pH 7.42 VBG pCO2 39 VBG pO2 40 VBG HCO3 25 VBG O2 Saturation 76.8 VBG Base Excess 0.3 Oxygen Given Sodium 139 Potassium 3.7 Chloride 104 Carbon Dioxide 26 Anion Gap 13 BUN 19 H Creatinine 0.51 Estim Creat Clear Calc 113.8 Estimated GFR > 60 Random Glucose 69 Fasting Glucose Lactic Acid Lactic Acid Fup @ 2Hr Calcium 7.7 L D Phosphorus 3.5 Magnesium 2.0 Ferritin Total Bilirubin Direct Bilirubin AST ALT Alkaline Phosphatase Lactate Dehydrogenase Total Creatine Kinase C-Reactive Protein Total Protein Albumin 3.2 L Lipase Procalcitonin Urine Color Urine Appearance Urine pH Ur Specific [place] Urine Protein Urine Glucose (UA) Urine Ketones Urine Blood Urine Nitrite Ur Leukocyte Esterase Urine RBC Urine WBC Ur Squamous Epith Cells Urine Bacteria Urine Mucus Nasal Screen MRSA (PCR) Nasal S. aureus Screen Nasal MRSA/S.aureus Interp Vancomycin Trough Respiratory Panel Daniel Adenovirus (Rapid PCR) B.pert (TEM-PCR) B.parapertussis DNA PCR C. pneumoniae DNA (PCR) Coronavirus (PCR) Coronavirus OC43 (PCR) Coronavirus HKU1 (PCR) Coronavirus 229E (PCR) COVID-19 ([facility]) COVID-19 Clin Com Coronavirus NL63 (PCR) Human Metapneumovir PCR Influenza A (RT-PCR) Influenza Type A (PCR) Influenza B (RT-PCR) Influenza Type B (PCR) Ur L.pneumophila Ag M. pneumoniae (PCR) Parainfluenza 1 (PCR) Parainfluenza 2 (PCR) Parainfluenza 3 (PCR) Parainfluenza 4 (PCR) RSV (PCR) RSV RNA Qual (PCR) Entero/Rhino (PCR) SARS-CoV-2 RNA (RT-PCR) SARS-CoV-2 IgG Ab Ur Strep pneumoniae Ag Blood Type Antibody Screen 09/30/20 09/30/20 10/01/20 06:10 06:10 05:54 WBC 19.5 H RBC 2.83 L Hgb 8.6 L Hct 27.2 L MCV 96.1 MCH 30.4 MCHC 31.6 RDW 13.4 Plt Count 174 MPV 11.6 Immature Gran % (Auto) 0.7 H Neut % (Auto) 84.8 H Lymph % (Auto) 6.3 L [place] % (Auto) 5.8 Eos % (Auto) 2.3 Baso % (Auto) 0.1 Lymph # (Auto) 1.2 [place] # (Auto) 1.1 Eos # (Auto) 0.4 Baso # (Auto) 0.0 Abs Immat Gran (auto) 0.14 H Absolute Neuts (auto) 16.5 H Absolute Nucleated RBC 0.000 Nucleated RBC % (auto) 0.0 Neutrophils % (Manual) Band Neutrophils % Lymphocytes % (Manual) Monocytes % (Manual) Metamyelocytes % Abs Neuts (Manual) Lymphocytes # (Manual) Monocytes # (Manual) Metamyelocytes # Platelet Estimate Plt Morphology Comment RBC Morphology Hypochromasia Smear Tech's Comments PT INR D-Dimer ABG pH ABG pCO2 ABG pO2 ABG HCO3 ABG O2 Saturation ABG Base Excess VBG pH 7.42 VBG pCO2 44 VBG pO2 42 VBG HCO3 28 VBG O2 Saturation 76.2 VBG Base Excess 3.1 Oxygen Given Sodium 140 Potassium 3.8 Chloride 104 Carbon Dioxide 30 H Anion Gap 10 L BUN 12 Creatinine 0.54 Estim Creat Clear Calc 110.3 Estimated GFR > 60 Random Glucose 119 H D Fasting Glucose Lactic Acid Lactic Acid Fup @ 2Hr Calcium 7.7 L Phosphorus 2.7 Magnesium 2.0 Ferritin Total Bilirubin Direct Bilirubin AST ALT Alkaline Phosphatase Lactate Dehydrogenase Total Creatine Kinase C-Reactive Protein Total Protein Albumin 3.0 L Lipase Procalcitonin Urine Color Urine Appearance Urine pH Ur Specific [place] Urine Protein Urine Glucose (UA) Urine Ketones Urine Blood Urine Nitrite Ur Leukocyte Esterase Urine RBC Urine WBC Ur Squamous Epith Cells Urine Bacteria Urine Mucus Nasal Screen MRSA (PCR) Nasal S. aureus Screen Nasal MRSA/S.aureus Interp Vancomycin Trough Respiratory Panel Daniel Adenovirus (Rapid PCR) B.pert (TEM-PCR) B.parapertussis DNA PCR C. pneumoniae DNA (PCR) Coronavirus (PCR) Coronavirus OC43 (PCR) Coronavirus HKU1 (PCR) Coronavirus 229E (PCR) COVID-19 ([facility]) COVID-19 Clin Com Coronavirus NL63 (PCR) Human Metapneumovir PCR Influenza A (RT-PCR) Influenza Type A (PCR) Influenza B (RT-PCR) Influenza Type B (PCR) Ur L.pneumophila Ag M. pneumoniae (PCR) Parainfluenza 1 (PCR) Parainfluenza 2 (PCR) Parainfluenza 3 (PCR) Parainfluenza 4 (PCR) RSV (PCR) RSV RNA Qual (PCR) Entero/Rhino (PCR) SARS-CoV-2 RNA (RT-PCR) SARS-CoV-2 IgG Ab Ur Strep pneumoniae Ag Blood Type Antibody Screen 10/01/20 10/01/20 10/02/20 05:54 05:54 05:18 WBC RBC Hgb Hct MCV MCH MCHC RDW Plt Count MPV Immature Gran % (Auto) Neut % (Auto) Lymph % (Auto) [place] % (Auto) Eos % (Auto) Baso % (Auto) Lymph # (Auto) [place] # (Auto) Eos # (Auto) Baso # (Auto) Abs Immat Gran (auto) Absolute Neuts (auto) Absolute Nucleated RBC Nucleated RBC % (auto) Neutrophils % (Manual) Band Neutrophils % Lymphocytes % (Manual) Monocytes % (Manual) Metamyelocytes % Abs Neuts (Manual) Lymphocytes # (Manual) Monocytes # (Manual) Metamyelocytes # Platelet Estimate Plt Morphology Comment RBC Morphology Hypochromasia Smear Tech's Comments PT INR D-Dimer ABG pH ABG pCO2 ABG pO2 ABG HCO3 ABG O2 Saturation ABG Base Excess VBG pH 7.38 7.40 VBG pCO2 50 50 VBG pO2 50 48 VBG HCO3 29 30 VBG O2 Saturation 83.9 84.2 VBG Base Excess 2.8 4.4 Oxygen Given Sodium 140 Potassium 3.6 Chloride 104 Carbon Dioxide 30 H Anion Gap 10 L BUN 12 Creatinine 0.53 Estim Creat Clear Calc 112.3 Estimated GFR > 60 Random Glucose 75 D Fasting Glucose Lactic Acid Lactic Acid Fup @ 2Hr Calcium 7.4 L Phosphorus 2.9 Magnesium 1.9 Ferritin Total Bilirubin Direct Bilirubin AST ALT Alkaline Phosphatase Lactate Dehydrogenase Total Creatine Kinase C-Reactive Protein Total Protein Albumin 2.8 L Lipase Procalcitonin Urine Color Urine Appearance Urine pH Ur Specific [place] Urine Protein Urine Glucose (UA) Urine Ketones Urine Blood Urine Nitrite Ur Leukocyte Esterase Urine RBC Urine WBC Ur Squamous Epith Cells Urine Bacteria Urine Mucus Nasal Screen MRSA (PCR) Nasal S. aureus Screen Nasal MRSA/S.aureus Interp Vancomycin Trough Respiratory Panel [place] Adenovirus (Rapid PCR) B.pert (TEM-PCR) B.parapertussis DNA PCR C. pneumoniae DNA (PCR) Coronavirus (PCR) Coronavirus OC43 (PCR) Coronavirus HKU1 (PCR) Coronavirus 229E (PCR) COVID-19 ([facility]) COVID-19 Clin Com Coronavirus NL63 (PCR) Human Metapneumovir PCR Influenza A (RT-PCR) Influenza Type A (PCR) Influenza B (RT-PCR) Influenza Type B (PCR) Ur L.pneumophila Ag M. pneumoniae (PCR) Parainfluenza 1 (PCR) Parainfluenza 2 (PCR) Parainfluenza 3 (PCR) Parainfluenza 4 (PCR) RSV (PCR) RSV RNA Qual (PCR) Entero/Rhino (PCR) SARS-CoV-2 RNA (RT-PCR) SARS-CoV-2 IgG Ab Ur Strep pneumoniae Ag Blood Type Antibody Screen 10/02/20 10/02/20 10/03/20 05:19 05:19 05:17 WBC 18.2 H 17.4 H RBC 2.87 L 2.81 L Hgb 8.7 L 8.4 L Hct 27.8 L 27.0 L MCV 96.9 96.1 MCH 30.3 29.9 MCHC 31.3 31.1 RDW 13.2 12.8 Plt Count 187 191 MPV 11.7 10.9 Immature Gran % (Auto) 0.4 0.6 H Neut % (Auto) 83.9 H 81.0 H Lymph % (Auto) 4.5 L 7.0 L [place] % (Auto) 8.4 9.6 Eos % (Auto) 2.6 1.7 Baso % (Auto) 0.2 0.1 Lymph # (Auto) 0.8 L 1.2 [place] # (Auto) 1.5 H 1.7 H Eos # (Auto) 0.5 H 0.3 Baso # (Auto) 0.0 0.0 Abs Immat Gran (auto) 0.08 H 0.10 H Absolute Neuts (auto) 15.2 H 14.1 H Absolute Nucleated RBC 0.000 0.000 Nucleated RBC % (auto) 0.0 0.0 Neutrophils % (Manual) Band Neutrophils % Lymphocytes % (Manual) Monocytes % (Manual) Metamyelocytes % Abs Neuts (Manual) Lymphocytes # (Manual) Monocytes # (Manual) Metamyelocytes # Platelet Estimate Plt Morphology Comment RBC Morphology Hypochromasia Smear Tech's Comments VERIFIED VERIFIED PT INR D-Dimer ABG pH ABG pCO2 ABG pO2 ABG HCO3 ABG O2 Saturation ABG Base Excess VBG pH VBG pCO2 VBG pO2 VBG HCO3 VBG O2 Saturation VBG Base Excess Oxygen Given Sodium 141 Potassium 3.8 Chloride 105 Carbon Dioxide 29 Anion Gap 11 L BUN 9 Creatinine 0.49 L Estim Creat Clear Calc 114.5 Estimated GFR > 60 Random Glucose 78 Fasting Glucose Lactic Acid Lactic Acid Fup @ 2Hr Calcium 7.1 L Phosphorus 2.4 L Magnesium 1.9 Ferritin Total Bilirubin Direct Bilirubin AST ALT Alkaline Phosphatase Lactate Dehydrogenase Total Creatine Kinase C-Reactive Protein Total Protein Albumin 2.7 L Lipase Procalcitonin Urine Color Urine Appearance Urine pH Ur Specific [place] Urine Protein Urine Glucose (UA) Urine Ketones Urine Blood Urine Nitrite Ur Leukocyte Esterase Urine RBC Urine WBC Ur Squamous Epith Cells Urine Bacteria Urine Mucus Nasal Screen MRSA (PCR) Nasal S. aureus Screen Nasal MRSA/S.aureus Interp Vancomycin Trough Respiratory Panel Daniel Adenovirus (Rapid PCR) B.pert (TEM-PCR) B.parapertussis DNA PCR C. pneumoniae DNA (PCR) Coronavirus (PCR) Coronavirus OC43 (PCR) Coronavirus HKU1 (PCR) Coronavirus 229E (PCR) COVID-19 ([facility]) COVID-19 Clin Com Coronavirus NL63 (PCR) Human Metapneumovir PCR Influenza A (RT-PCR) Influenza Type A (PCR) Influenza B (RT-PCR) Influenza Type B (PCR) Ur L.pneumophila Ag M. pneumoniae (PCR) Parainfluenza 1 (PCR) Parainfluenza 2 (PCR) Parainfluenza 3 (PCR) Parainfluenza 4 (PCR) RSV (PCR) RSV RNA Qual (PCR) Entero/Rhino (PCR) SARS-CoV-2 RNA (RT-PCR) SARS-CoV-2 IgG Ab Ur Strep pneumoniae Ag Blood Type Antibody Screen 10/03/20 10/03/20 10/04/20 05:17 05:17 05:34 WBC 7.7 RBC 2.48 L Hgb 7.6 L Hct 23.4 L MCV 94.4 MCH 30.6 MCHC 32.5 RDW 13.1 Plt Count 173 MPV 10.7 Immature Gran % (Auto) 0.5 H Neut % (Auto) 77.8 H Lymph % (Auto) 8.5 L [place] % (Auto) 10.3 Eos % (Auto) 2.8 Baso % (Auto) 0.1 Lymph # (Auto) 0.7 L [place] # (Auto) 0.8 Eos # (Auto) 0.2 Baso # (Auto) 0.0 Abs Immat Gran (auto) 0.04 H Absolute Neuts (auto) 6.0 Absolute Nucleated RBC 0.000 Nucleated RBC % (auto) 0.0 Neutrophils % (Manual) Band Neutrophils % Lymphocytes % (Manual) Monocytes % (Manual) Metamyelocytes % Abs Neuts (Manual) Lymphocytes # (Manual) Monocytes # (Manual) Metamyelocytes # Platelet Estimate Plt Morphology Comment RBC Morphology Hypochromasia Smear Tech's Comments VERIFIED PT INR D-Dimer ABG pH ABG pCO2 ABG pO2 ABG HCO3 ABG O2 Saturation ABG Base Excess VBG pH 7.36 VBG pCO2 48 VBG pO2 55 VBG HCO3 27 VBG O2 Saturation 87.3 VBG Base Excess 0.9 Oxygen Given Sodium 139 Potassium 3.9 Chloride 103 Carbon Dioxide 26 Anion Gap 14 BUN 9 Creatinine 0.49 L Estim Creat Clear Calc 113.1 Estimated GFR > 60 Random Glucose 56 L* Fasting Glucose Lactic Acid Lactic Acid Fup @ 2Hr Calcium 7.1 L Phosphorus 2.0 L Magnesium 1.9 Ferritin Total Bilirubin Direct Bilirubin AST ALT Alkaline Phosphatase Lactate Dehydrogenase Total Creatine Kinase C-Reactive Protein Total Protein Albumin 2.6 L Lipase Procalcitonin Urine Color Urine Appearance Urine pH Ur Specific [place] Urine Protein Urine Glucose (UA) Urine Ketones Urine Blood Urine Nitrite Ur Leukocyte Esterase Urine RBC Urine WBC Ur Squamous Epith Cells Urine Bacteria Urine Mucus Nasal Screen MRSA (PCR) Nasal S. aureus Screen Nasal MRSA/S.aureus Interp Vancomycin Trough Respiratory Panel Daniel Adenovirus (Rapid PCR) B.pert (TEM-PCR) B.parapertussis DNA PCR C. pneumoniae DNA (PCR) Coronavirus (PCR) Coronavirus OC43 (PCR) Coronavirus HKU1 (PCR) Coronavirus 229E (PCR) COVID-19 ([facility]) COVID-19 Clin Com Coronavirus NL63 (PCR) Human Metapneumovir PCR Influenza A (RT-PCR) Influenza Type A (PCR) Influenza B (RT-PCR) Influenza Type B (PCR) Ur L.pneumophila Ag M. pneumoniae (PCR) Parainfluenza 1 (PCR) Parainfluenza 2 (PCR) Parainfluenza 3 (PCR) Parainfluenza 4 (PCR) RSV (PCR) RSV RNA Qual (PCR) Entero/Rhino (PCR) SARS-CoV-2 RNA (RT-PCR) SARS-CoV-2 IgG Ab Ur Strep pneumoniae Ag Blood Type Antibody Screen 10/04/20 10/04/20 10/04/20 05:34 05:34 13:12 WBC RBC Hgb Hct MCV MCH MCHC RDW Plt Count MPV Immature Gran % (Auto) Neut % (Auto) Lymph % (Auto) [place] % (Auto) Eos % (Auto) Baso % (Auto) Lymph # (Auto) [place] # (Auto) Eos # (Auto) Baso # (Auto) Abs Immat Gran (auto) Absolute Neuts (auto) Absolute Nucleated RBC Nucleated RBC % (auto) Neutrophils % (Manual) Band Neutrophils % Lymphocytes % (Manual) Monocytes % (Manual) Metamyelocytes % Abs Neuts (Manual) Lymphocytes # (Manual) Monocytes # (Manual) Metamyelocytes # Platelet Estimate Plt Morphology Comment RBC Morphology Hypochromasia Smear Tech's Comments PT INR D-Dimer ABG pH ABG pCO2 ABG pO2 ABG HCO3 ABG O2 Saturation ABG Base Excess VBG pH 7.43 VBG pCO2 38 VBG pO2 42 VBG HCO3 25 VBG O2 Saturation 77.5 VBG Base Excess 0.4 Oxygen Given Sodium 142 Potassium 3.4 Chloride 106 Carbon Dioxide 28 Anion Gap 11 L BUN 4 L D Creatinine 0.53 Estim Creat Clear Calc 108.5 Estimated GFR > 60 Random Glucose 114 D Fasting Glucose Lactic Acid Lactic Acid Fup @ 2Hr Calcium 7.9 L D Phosphorus 2.5 L Magnesium 2.0 Ferritin Total Bilirubin Direct Bilirubin AST ALT Alkaline Phosphatase Lactate Dehydrogenase Total Creatine Kinase C-Reactive Protein Total Protein Albumin 3.8 D Lipase Procalcitonin Urine Color Urine Appearance Urine pH Ur Specific [place] Urine Protein Urine Glucose (UA) Urine Ketones Urine Blood Urine Nitrite Ur Leukocyte Esterase Urine RBC Urine WBC Ur Squamous Epith Cells Urine Bacteria Urine Mucus Nasal Screen MRSA (PCR) Nasal S. aureus Screen Nasal MRSA/S.aureus Interp Vancomycin Trough Respiratory Panel Daniel Adenovirus (Rapid PCR) B.pert (TEM-PCR) B.parapertussis DNA PCR C. pneumoniae DNA (PCR) Coronavirus (PCR) Coronavirus OC43 (PCR) Coronavirus HKU1 (PCR) Coronavirus 229E (PCR) COVID-19 ([facility]) COVID-19 Clin Com Coronavirus NL63 (PCR) Human Metapneumovir PCR Influenza A (RT-PCR) Influenza Type A (PCR) Influenza B (RT-PCR) Influenza Type B (PCR) Ur L.pneumophila Ag M. pneumoniae (PCR) Parainfluenza 1 (PCR) Parainfluenza 2 (PCR) Parainfluenza 3 (PCR) Parainfluenza 4 (PCR) RSV (PCR) RSV RNA Qual (PCR) Entero/Rhino (PCR) SARS-CoV-2 RNA (RT-PCR) SARS-CoV-2 IgG Ab Negative Ur Strep pneumoniae Ag Blood Type Antibody Screen 10/04/20 10/05/20 10/05/20 14:13 05:42 05:42 WBC 7.0 RBC 2.51 L Hgb 7.5 L Hct 23.3 L MCV 92.8 MCH 29.9 MCHC 32.2 RDW 13.0 Plt Count 218 D MPV 10.7 Immature Gran % (Auto) 1.0 H Neut % (Auto) 64.2 Lymph % (Auto) 14.6 L [place] % (Auto) 17.5 H Eos % (Auto) 2.6 Baso % (Auto) 0.1 Lymph # (Auto) 1.0 L [place] # (Auto) 1.2 Eos # (Auto) 0.2 Baso # (Auto) 0.0 Abs Immat Gran (auto) 0.07 H Absolute Neuts (auto) 4.5 Absolute Nucleated RBC 0.000 Nucleated RBC % (auto) 0.0 Neutrophils % (Manual) Band Neutrophils % Lymphocytes % (Manual) Monocytes % (Manual) Metamyelocytes % Abs Neuts (Manual) Lymphocytes # (Manual) Monocytes # (Manual) Metamyelocytes # Platelet Estimate Plt Morphology Comment RBC Morphology Hypochromasia Smear Tech's Comments PT INR D-Dimer ABG pH ABG pCO2 ABG pO2 ABG HCO3 ABG O2 Saturation ABG Base Excess VBG pH VBG pCO2 VBG pO2 VBG HCO3 VBG O2 Saturation VBG Base Excess Oxygen Given Sodium 142 Potassium 2.9 L Chloride 110 H Carbon Dioxide 24 Anion Gap 11 L BUN 3 L Creatinine 0.51 Estim Creat Clear Calc 109.6 Estimated GFR > 60 Random Glucose 103 Fasting Glucose Lactic Acid Lactic Acid Fup @ 2Hr Calcium 7.7 L Phosphorus 2.7 Magnesium 1.8 Ferritin Total Bilirubin Direct Bilirubin AST ALT Alkaline Phosphatase Lactate Dehydrogenase Total Creatine Kinase C-Reactive Protein Total Protein Albumin Lipase Procalcitonin Urine Color Urine Appearance Urine pH Ur Specific [place] Urine Protein Urine Glucose (UA) Urine Ketones Urine Blood Urine Nitrite Ur Leukocyte Esterase Urine RBC Urine WBC Ur Squamous Epith Cells Urine Bacteria Urine Mucus Nasal Screen MRSA (PCR) Nasal S. aureus Screen Nasal MRSA/S.aureus Interp Vancomycin Trough Respiratory Panel Daniel Adenovirus (Rapid PCR) B.pert (TEM-PCR) B.parapertussis DNA PCR C. pneumoniae DNA (PCR) Coronavirus (PCR) NEGATIVE Coronavirus OC43 (PCR) Coronavirus HKU1 (PCR) Coronavirus 229E (PCR) COVID-19 (KATE) COVID-19 Clin Com Coronavirus NL63 (PCR) Human Metapneumovir PCR Influenza A (RT-PCR) Influenza Type A (PCR) NEGATIVE Influenza B (RT-PCR) Influenza Type B (PCR) NEGATIVE Ur L.pneumophila Ag M. pneumoniae (PCR) Parainfluenza 1 (PCR) Parainfluenza 2 (PCR) Parainfluenza 3 (PCR) Parainfluenza 4 (PCR) RSV (PCR) RSV RNA Qual (PCR) NEGATIVE Entero/Rhino (PCR) SARS-CoV-2 RNA (RT-PCR) SARS-CoV-2 IgG Ab Ur Strep pneumoniae Ag Blood Type Antibody Screen 10/05/20 10/05/20 10/05/20 05:42 16:40 16:40 WBC RBC Hgb Hct MCV MCH MCHC RDW Plt Count MPV Immature Gran % (Auto) Neut % (Auto) Lymph % (Auto) [place] % (Auto) Eos % (Auto) Baso % (Auto) Lymph # (Auto) [place] # (Auto) Eos # (Auto) Baso # (Auto) Abs Immat Gran (auto) Absolute Neuts (auto) Absolute Nucleated RBC Nucleated RBC % (auto) Neutrophils % (Manual) Band Neutrophils % Lymphocytes % (Manual) Monocytes % (Manual) Metamyelocytes % Abs Neuts (Manual) Lymphocytes # (Manual) Monocytes # (Manual) Metamyelocytes # Platelet Estimate Plt Morphology Comment RBC Morphology Hypochromasia Smear Tech's Comments PT 13.7 H INR 1.2 H D-Dimer ABG pH ABG pCO2 ABG pO2 ABG HCO3 ABG O2 Saturation ABG Base Excess VBG pH 7.45 H VBG pCO2 31 VBG pO2 51 VBG HCO3 21 VBG O2 Saturation 87.0 VBG Base Excess -2.2 Oxygen Given Sodium Potassium Chloride Carbon Dioxide Anion Gap BUN Creatinine Estim Creat Clear Calc Estimated GFR Random Glucose Fasting Glucose Lactic Acid Lactic Acid Fup @ 2Hr Calcium Phosphorus Magnesium Ferritin Total Bilirubin Direct Bilirubin AST ALT Alkaline Phosphatase Lactate Dehydrogenase Total Creatine Kinase C-Reactive Protein Total Protein Albumin Lipase Procalcitonin Urine Color Urine Appearance Urine pH Ur Specific [place] Urine Protein Urine Glucose (UA) Urine Ketones Urine Blood Urine Nitrite Ur Leukocyte Esterase Urine RBC Urine WBC Ur Squamous Epith Cells Urine Bacteria Urine Mucus Nasal Screen MRSA (PCR) Nasal S. aureus Screen Nasal MRSA/S.aureus Interp Vancomycin Trough Respiratory Panel Daniel Adenovirus (Rapid PCR) B.pert (TEM-PCR) B.parapertussis DNA PCR C. pneumoniae DNA (PCR) Coronavirus (PCR) Coronavirus OC43 (PCR) Coronavirus HKU1 (PCR) Coronavirus 229E (PCR) COVID-19 (KATE) COVID-19 Clin Com Coronavirus NL63 (PCR) Human Metapneumovir PCR Influenza A (RT-PCR) Influenza Type A (PCR) Influenza B (RT-PCR) Influenza Type B (PCR) Ur L.pneumophila Ag M. pneumoniae (PCR) Parainfluenza 1 (PCR) Parainfluenza 2 (PCR) Parainfluenza 3 (PCR) Parainfluenza 4 (PCR) RSV (PCR) RSV RNA Qual (PCR) Entero/Rhino (PCR) SARS-CoV-2 RNA (RT-PCR) SARS-CoV-2 IgG Ab Ur Strep pneumoniae Ag Blood Type O Positive Antibody Screen NEGATIVE 10/06/20 10/06/20 10/06/20 05:59 05:59 05:59 WBC 7.6 RBC 2.90 L Hgb 8.7 L Hct 26.9 L MCV 92.8 MCH 30.0 MCHC 32.3 RDW 13.1 Plt Count 271 MPV 11.4 Immature Gran % (Auto) 1.6 H Neut % (Auto) 63.7 Lymph % (Auto) 15.6 L [place] % (Auto) 15.7 H Eos % (Auto) 3.0 Baso % (Auto) 0.4 Lymph # (Auto) 1.2 [place] # (Auto) 1.2 Eos # (Auto) 0.2 Baso # (Auto) 0.0 Abs Immat Gran (auto) 0.12 H Absolute Neuts (auto) 4.8 Absolute Nucleated RBC 0.000 Nucleated RBC % (auto) 0.0 Neutrophils % (Manual) Band Neutrophils % Lymphocytes % (Manual) Monocytes % (Manual) Metamyelocytes % Abs Neuts (Manual) Lymphocytes # (Manual) Monocytes # (Manual) Metamyelocytes # Platelet Estimate Plt Morphology Comment RBC Morphology Hypochromasia Smear Tech's Comments PT INR D-Dimer ABG pH ABG pCO2 ABG pO2 ABG HCO3 ABG O2 Saturation ABG Base Excess VBG pH 7.38 VBG pCO2 43 VBG pO2 47 VBG HCO3 25 VBG O2 Saturation 80.6 VBG Base Excess -0.1 Oxygen Given Sodium 139 Potassium 4.0 D Chloride 107 Carbon Dioxide 24 Anion Gap 12 BUN 2 L Creatinine 0.49 L Estim Creat Clear Calc 109.2 Estimated GFR > 60 Random Glucose Fasting Glucose 109 H Lactic Acid Lactic Acid Fup @ 2Hr Calcium 8.0 L Phosphorus Magnesium Ferritin Total Bilirubin Direct Bilirubin AST ALT Alkaline Phosphatase Lactate Dehydrogenase Total Creatine Kinase C-Reactive Protein Total Protein Albumin Lipase Procalcitonin Urine Color Urine Appearance Urine pH Ur Specific [place] Urine Protein Urine Glucose (UA) Urine Ketones Urine Blood Urine Nitrite Ur Leukocyte Esterase Urine RBC Urine WBC Ur Squamous Epith Cells Urine Bacteria Urine Mucus Nasal Screen MRSA (PCR) Nasal S. aureus Screen Nasal MRSA/S.aureus Interp Vancomycin Trough Respiratory Panel Daniel Adenovirus (Rapid PCR) B.pert (TEM-PCR) B.parapertussis DNA PCR C. pneumoniae DNA (PCR) Coronavirus (PCR) Coronavirus OC43 (PCR) Coronavirus HKU1 (PCR) Coronavirus 229E (PCR) COVID-19 (KATE) COVID-19 Clin Com Coronavirus NL63 (PCR) Human Metapneumovir PCR Influenza A (RT-PCR) Influenza Type A (PCR) Influenza B (RT-PCR) Influenza Type B (PCR) Ur L.pneumophila Ag M. pneumoniae (PCR) Parainfluenza 1 (PCR) Parainfluenza 2 (PCR) Parainfluenza 3 (PCR) Parainfluenza 4 (PCR) RSV (PCR) RSV RNA Qual (PCR) Entero/Rhino (PCR) SARS-CoV-2 RNA (RT-PCR) SARS-CoV-2 IgG Ab Ur Strep pneumoniae Ag Blood Type Antibody Screen Airway Other: intubated and sedated Assessment and Plan Assessment Anesthesia Assessment: Anesthesia Plan Discussed and Chart Reviewed Final Anesthetic Review NPO: Yes ASA Class: III Final Preanesthetic Review: No Changes in Pt Med Stat, Meds/Allgs Chart Reviewed, Consent Obtained/Reviewed (Consent obtained from HCP sister Sharri via telephone) and Anes Risks/Benef Reviewed Patient Risk: Low Procedure Risk: Low Anesthetic Plan Anesthetic Plan: GA and MAC: Disposition: Inp. Admit - ICU
--- NOTE | 2020-10-06 15:34 | PM.CCPN ---
Subjective Subjective Date of Service: 10/06/20 Interval History: Mr Thurman was admitted to ICU on 09/23/2020 with acute resp failure presumed 2? aspiration pneumonia. The patient is a 60-year-old gentleman who is resident of a long term with history of developmental delay, cerebral palsy, spastic quadriplegia, seizure disorder, dysphagia, wheelchair-bound. By report the patient is nonverbal and lies in the position. HCP is his sister Sharri, who is very involved. The patient was sent to the ED from his long term late on 09/22/2020 because of fever vomiting and cough. The patient was found to have a left lower lobe pneumonia. Patient was intubated in the ED because of impending respiratory failure, presumed secondary to aspiration. COVID and viral PCRs were negative. The patient also had an abdominal CT which was negative except for a large stool burden within the rectum. The patient was admitted to the ICU and treated with Zosyn and vancomycin. He was also found to have a UTI. Bedside echo showed normal LV and RV size and function, with no significant valvular disease. Ultimately the patient was treated with a 7 day course of doxycycline for community-acquired pneumonia. The patient was ultimately extubated 09/28/2020, but required re-intubation later that day because of another aspiration event. Was then given a course of Unasyn. Tapering ventilator support since then. Notably, 2 attempts at placing an OG tube failed, with inability to pass the OG tube past the GE junction. Discussions with his sister last week regarding tracheostomy and PEG. Over the last two days been weaning ventilator support while we wait for tracheostomy and PEG planned for today. On exam today, the patient is moderately sedated on propofol at 50ug and fent @ 100ug. The patient is also on Levophed 0.07ug. D10 W infusion is off. Opens eyes and blinks to confrontation. No interaction to commands. See Vital Signs below. Heart rate is 99, blood pressure 133/74. Afebrile x 36 hrs. Unasyn d/c?d yesterday. Respiratory rate is 13 on vent setting AC/PC 8, pressures 13/6, 35%, with Vt 540cc, Ve 6.4L, PIP 19cm, Sat 98%. Central venous blood gas this morning showed 7.38/43/0. Anicteric, no JVD, chest CTA, RRR, S1, S2 with no murmur or gallops. The abdomen is benign. Trace central edema. LABORATORY DATA: As below. MICRO: Blood cultures drawn 10/04 negative so far. Urine culture 10/04 negative so far. Sputum Gram stain 10/04 showing 4+polys, with 2+ Gram-negative rods. Cultures growing GNR. IMPRESSION: 1. Underlying mental retardation, cerebral palsy, spastic quadriplegia, and seizure disorder. 2. History of dysphagia, now with recurrent aspiration pneumonia. Recent difficulty placing an orogastric tube may be related to whatever the problem is that?s causing recurrent aspiration. 3. Aspiration pneumonia. (Mult COVID PCRs negative) 4. Acute respiratory failure 2? above. Discussed w Dr. [place] and Dr. Herrera. Plan tracheostomy and PEG today. Spoke to his sister at some length about it yesterday. 5. ID: Afebrile, with normal white count, no clear evidence of pneumonia. We?ll look at his CXR post-tracheostomyt. Might give him GNR coverage, but I don?t want to treat a colonizer. 6. Neuro: Underlying seizure disorder, continue valproic acid. 7. Nutrition: Start tube feeds post PEG. Critical care time (include d/w surgeon and anesthesiologist): 50+ min. Physical Exam Vital Signs: Vital Signs: Last Vital Signs Temp 99.0 F 10/06/20 14:00 Pulse 100 10/06/20 14:00 Resp 12 10/06/20 14:00 BP 122/74 10/06/20 14:00 Pulse Ox 98 10/06/20 14:00 Body Mass Index 17.7 Objective Data Labs CBC & Chem 7: 10/06/20 05:59 10/06/20 05:59 Labs: Laboratory Results - last 24 hr 10/05/20 10/05/20 10/06/20 16:40 16:40 05:59 WBC 7.6 RBC 2.90 L Hgb 8.7 L Hct 26.9 L MCV 92.8 MCH 30.0 MCHC 32.3 RDW 13.1 Plt Count 271 MPV 11.4 Immature Gran % (Auto) 1.6 H Neut % (Auto) 63.7 Lymph % (Auto) 15.[address] [place] % (Auto) 15.7 H Eos % (Auto) 3.0 Baso % (Auto) 0.4 Lymph # (Auto) 1.2 [place] # (Auto) 1.2 Eos # (Auto) 0.2 Baso # (Auto) 0.0 Abs Immat Gran (auto) 0.12 H Absolute Neuts (auto) 4.8 Absolute Nucleated RBC 0.000 Nucleated RBC % (auto) 0.0 PT 13.7 H INR 1.2 H VBG pH VBG pCO2 VBG pO2 VBG HCO3 VBG O2 Saturation VBG Base Excess Sodium Potassium Chloride Carbon Dioxide Anion Gap BUN Creatinine Estim Creat Clear Calc Estimated GFR Fasting Glucose Calcium Blood Type O Positive Antibody Screen NEGATIVE 10/06/20 10/06/20 05:59 05:59 WBC RBC Hgb Hct MCV MCH MCHC RDW Plt Count MPV Immature Gran % (Auto) Neut % (Auto) Lymph % (Auto) [place] % (Auto) Eos % (Auto) Baso % (Auto) Lymph # (Auto) [place] # (Auto) Eos # (Auto) Baso # (Auto) Abs Immat Gran (auto) Absolute Neuts (auto) Absolute Nucleated RBC Nucleated RBC % (auto) PT INR VBG pH 7.38 VBG pCO2 43 VBG pO2 47 VBG HCO3 25 VBG O2 Saturation 80.6 VBG Base Excess -0.1 Sodium 139 Potassium 4.0 D Chloride 107 Carbon Dioxide 24 Anion Gap 12 BUN 2 L Creatinine 0.49 L Estim Creat Clear Calc 109.2 Estimated GFR > 60 Fasting Glucose 109 H Calcium 8.0 L Blood Type Antibody Screen Microbiology Microbiology Results: Microbiology 10/04/20 06:56 Urine [place] Urine Culture - Final No growth. 10/04/20 06:56 Sputum - Suctioned Gram Stain - Final 10/04/20 06:56 Sputum - Suctioned Sputum Culture - Preliminary Gram negative ana 10/04/20 21:00 Blood - Central Line Blood Culture - Preliminary No growth after 24 hours. 10/04/20 20:53 Blood - Central Line Blood Culture - Preliminary No growth after 24 hours. 09/26/20 15:00 Sputum - Suctioned Gram Stain - Final 09/26/20 15:00 Sputum - Suctioned Sputum Culture - Final Enterobacter cloacae complex 09/22/20 21:39 Blood - Venous Blood Culture - Final No growth after 5 days. 09/22/20 21:38 Blood - Venous Blood Culture - Final No growth after 5 days. 09/22/20 22:07 Urine clean catch - Clean Catch Midstream Urine Culture - Final Escherichia coli Progress Note: A&P Time Spent With Patient Time: Total time spent is greater than 50% in coordination of care (as documented) at patient's floor/unit and/or counseling patient: Total time spent with greater than 50% in coordination of care (as documented) at patient's floor/unit and/or counseling patient:: 0 Critical Care Time Critical Care Time (minutes): 60
--- NOTE | 2020-10-06 17:30 | XR_ITS ---
EXAMINATION: XR CHEST CLINICAL INFORMATION: NG tube placement. COMPARISON: Multiple prior studies including Chest x-ray 10/02/2020, 9:49 AM, 1:[address] chest and CT abdomen pelvis 09/23/2020 TECHNIQUE: Frontal portable view of the chest was obtained. 5:20 PM FINDINGS: Tubes and lines: 1. Right IJ catheter tip at caval atrial junction. 2. Gastric tube: The gastric tube passes through the mediastinum to about the level of the diaphragm where it then curves to the left and projects over the left lung base lateral to left cardiac silhouette. The catheter then passes caudally with the end hole over the left upper quadrant of the abdomen over the stomach. This pattern is unusual for a gastric tube. No large hiatal hernia seen on the CT of chest of 09/23/2020. NG tube at that time had a more direct normal courses into the stomach. Further evaluation of the catheter position with CT would be helpful. There are persistent streaky and patchy airspace opacities in the lungs bilaterally. No pneumothorax is evident. XR/XR chest 1V IMPRESSION: 1. Right IJ catheter tip at cavoatrial junction. 2. Orogastric catheter tip is over the left upper quadrant of the abdomen however the catheter has an unusual course over the left lower chest. This can be further assessed with CT of chest. This critical result was discussed with Dr. Lam on 10/06/2020, 6:04 PM and it was ascertained that the content and urgency of the report was understood at the time of direct communication.
--- NOTE | 2020-10-06 17:47 | OP_ITS ---
SURGEON: Tiffanie Herrera MD PREOPERATIVE DIAGNOSIS: Respiratory failure. POSTOPERATIVE DIAGNOSIS: Respiratory failure. PROCEDURE PERFORMED: Percutaneous tracheostomy, EGD, and aborted PEG tube. ESTIMATED BLOOD LOSS: Minimal. COMPLICATIONS: ANESTHESIA: General. ASSISTANTS: SPECIMENS: None. OPERATION IN DETAIL: On the day of operation, the patient was brought into the operating room, on his ICU bed, positioned with his neck extended and he was completely paralyzed. A time-out was performed confirming the correct patient, site and procedure, and the head and neck were extended, and the neck and chest were widely prepped and draped in the standard sterile fashion. First, a bronchoscopy was done through the endotracheal tube. There was small amount of secretions which were suctioned out. There were no endobronchial lesions down to the segmental level bilaterally. The bedside teachers' assistant was then ready at the neck and the endotracheal tube was pulled back after the cuff was taken down with the bronchoscope in the trachea, this was pulled back just below the vocal cords. A 2 cm incision was made by the bedside teachers' assistant and this was dissected directly down to the trachea. The needle with catheter was then placed into the trachea in the midline, 2nd tracheal ring, and the catheter was left in place under direct vision. A wire was placed through the catheter and went down towards the milind. The catheter was then removed and the 1st dilator was placed and visualized as it was happening. That dilator was removed. A smaller white dilator was then placed until the black tip was visualized through the bronchoscope. The rhino dilator was then placed over that dilator, flushed with the black tip and this was inserted twice to the black line under vision through the bronchoscope. Once the rhino was removed, the tracheostomy with its internal dilator was placed over the wire and a black tip dilator into the trachea under vision. The internal dilator and wires were all removed at the same time with the tracheostomy left in place. The bronchoscope was then placed through the tracheostomy, visualizing the airways. There was minimal bleeding and the tip of the tracheostomy was at about 2 cm above the milind. The bronchoscope was then removed, and he was hooked up to the vent with excellent volumes and saturations. The tracheostomy was then secured with nylon sutures, dressing was applied, and the trach ties were applied. He tolerated this portion of the procedure quite well. The gastroscope was then inserted through the oropharynx and into the esophagus. At about 25 cm, there was some blood in the esophagus and possibly some minor trauma. The scope was then brought down to the GE junction, which was slightly tight, but we were able to pass through it and passed through the stomach and into the duodenum. First portion of the duodenum was normal. Bringing the scope back, the esophageal mucosa was normal. On retroflexing of the scope, there was a small hiatal hernia appreciated and no mucosal lesions. I then brought the scope back through the GE junction, visualizing the GE junction. There were no mucosal lesions. Again, it was slightly tight and then through the entire course of the esophagus, there were no mucosal lesions to speak of except for the minor trauma initially mentioned. We then put the scope back into the stomach and tried to transilluminate in multiple different places through the abdominal wall while the bedside teachers' assistant was pushing down. We were not able to transilluminate after spending at least 45 minutes attempting to visualize transabdominally. I did not feel it was safe to proceed as we could not transilluminate and could not be sure we would not coarse through large or small intestine to place the PEG. For this reason, we then decided to abort the PEG part of the procedure and the scope was brought back through the GE junction again taking another look at the mucosa and up through the esophagus and out. He tolerated this portion of procedure well, was brought back to the intensive care unit in stable condition. HARDWOOD FALLER: Chris Reilly, PAC. MD VANESA Olivares/MIN / [id number]
[2020-10-06] MEDS: fentaNYL citrate/PF 100 MCG/2 ML VIAL 200 MCG IVPUSH (17:52)
[2020-10-06] MEDS: Rocuronium Bromide 50 MG/5 ML VIAL 30 MG IVPUSH (17:53)
--- NOTE | 2020-10-06 17:56 | PC.NURSE ---
Patient returned from OR for tracheotomy placement. Tracheotomy sutured in placed. VSS. Patient restarted on Propofol and fentanyl per MD. RT at bedside to adjust Vent settings of VC of 400, rate 14, peep 5, fio2 40% with o2 sat 95% per MD. MD placed 18F OG tube, Rocuronium and fentanyl administered for sedation, per MD. CXR for placement. Patient to be started on promote at 20 cc/hr per MD.
[2020-10-06 18:01] LABS: Glucose, Whole Blood 110 mg/dL (60-115)
[2020-10-06] MEDS: propofoL 1,000 MG/100 ML VIAL 14.1 MG IVCONT (19:28)
[2020-10-06] MEDS: fentaNYL citrate/NS 1,000 MCG/100 ML PLAST..BAG 20 MCG IVCONT (21:18)
[2020-10-07] VITALS (27 sets, daily range): BP systolic 93–136; BP diastolic 53–80; PULSE 76–119; RESP 6–18; TEMP 36.6–36.8; O2SAT 96–100; BMI 17.2
[2020-10-07] MEDS: fentaNYL citrate/NS 1,000 MCG/100 ML PLAST..BAG 20 MCG IVCONT (01:50)
[2020-10-07] MEDS: propofoL 1,000 MG/100 ML VIAL 14.1 MG IVCONT (03:04)
[2020-10-07 06:23] LABS: MANUAL DIFF FLAG NO
[2020-10-07 06:40] LABS: Base Excess VBG 0.8 mmol/L; HCO3 VBG 26 mmol/L; PCO2 VBG 46 mmhg; PO2 VBG 45 mmhg; pH VBG 7.38 (7.32-7.43)
[2020-10-07 06:41] LABS: Oxygen Saturation VBG 78.3 %
[2020-10-07 06:50] LABS: Basophils Percent Auto 0.3 % (0-2); Eosinophils Percent Auto 0.1 % (0-4); Hematocrit 26.3 % (42-52); Hemoglobin 8.4 g/dl (14.0-18.0); Imm Gran Abs Auto 0.13 X10*3/uL (0.00-0.03); Imm Gran Pct Auto 1.2 % (0.0-0.4); Lymphocytes Absolute Auto 1.3 X10*3/uL (1.2-4.9); Lymphocytes Percent Auto 12.8 % (20-40); Mean Corpuscular HGB Conc 31.9 g/dl (31.0-36.0); Mean Corpuscular Hemoglobin 29.7 pg (27.0-33.0); Mean Corpuscular Volume 92.9 fL (80-98); Mean Platelet Volume 11.2 fL (9.4-12.4); Monocytes Absolute Auto 0.7 X10*3/uL (0.1-1.2); Neutrophils Absolute Auto 8.2 X10*3/uL (2.0-8.3); Neutrophils Percent Auto 78.6 % (45-73); Platelet Count 377 X10*3/uL (160-400); Red Blood Count 2.83 X10*6/uL (4.60-5.80); Red Cell Distribution Width 12.9 % (11.0-16.0); White Blood Count 10.4 X10*3/uL (4.8-10.8)
[2020-10-07 06:54] LABS: Alanine Aminotransferase 40 U/L (0-40); Albumin Level 3.2 g/dL (3.5-5.0); Alkaline Phosphatase 67 U/L (39-117); Anion Gap 11 (12-20); Aspartate Amino Transferase 12 U/L (5-37); Bilirubin Total 0.5 mg/dL (0.0-1.0); Blood Urea Nitrogen 6 mg/dL (9-16); Calcium 8.2 mg/dL (8.4-10.2); Carbon Dioxide 28 mmol/L (22-29); Chloride 106 mmol/L (96-108); Creatinine Clr Calc Pharmacy 109.2; Estimated Glomerular Filt Rate > 60; Glucose Random 97 mg/dL (60-115); Potassium 4.3 mmol/l (3.3-5.1); Sodium 141 mmol/L (135-145); Total Protein 5.3 g/dL (6.5-8.0)
--- NOTE | 2020-10-07 07:30 | CT_ITS ---
EXAMINATION: CT ABDOMEN WITHOUT IV CONTRAST CLINICAL INFORMATION: Preoperative evaluation for PEG tube placement. COMPARISON: 10/06/2020 TECHNIQUE: Contiguous axial thin section helical images of the abdomen were performed without contrast. The data set was reformatted in the coronal and sagittal planes and reviewed on an independent workstation. This CT examination was performed using dose optimization techniques as appropriate, variously including the following: *Automated exposure control *Adjustment of mA and/or kV according to patient size (this includes techniques or standardized protocols for targeted exams where dose is matched to indication/reason for exam; i.e. extremities or head) *Use of iterative reconstruction technique DLP: 151 mGy-cm FINDINGS: LUNG BASES: The tip of the right IJ catheter is in the region of junction of the SVC with the right atrium. Small pleural effusions and atelectasis in dependent aspect of each lung. Also, there a few persistent patchy opacity in the right lower lobe, suspicious for inflammation/pneumonia. A mildly dilated bronchus is observed within the lingula, and there is subtle, minimal groundglass opacity in the lingula. LIVER, GALLBLADDER, BILIARY TREE: Liver and gallbladder are unremarkable. No intrahepatic bile duct dilatation. PANCREAS: Unremarkable. SPLEEN: Unremarkable. ADRENAL GLANDS AND KIDNEYS: Adrenal glands are normal. Kidneys are normal in size. No hydronephrosis or perinephric edema. There are a few punctate bilateral renal calculi. BOWEL LOOPS: The tip of the enteric tube is located in the gastric body. The gastric distention is improved compared to 10/06/2020 after enteric contrast administration. The region of the gastric antrum appears to be accessible for percutaneous gastrostomy tube placement. No dilated bowel loops. No ascites or pneumoperitoneum. Prominent fecal material throughout the colon, extending to the rectum, which is excluded from the [id number]. LYMPH NODES: Normal. VASCULAR: Abdominal aorta is normal in size. BONES: Dextroscoliosis and mild spondylosis of the thoracolumbar spine. No suspicious bone lesions. CT/CT abdomen wo con IMPRESSION: * There is improved distention of the stomach after administration of enteric contrast. The antral region of the stomach appears to be assessable for percutaneous gastrostomy tube placement. * Large amount fecal material is present in the colon. No bowel obstruction, free air or ascites. * Small bilateral pleural effusions and bibasilar atelectasis are unchanged compared to 10/06/2020. Also, there are persistent hazy, patchy opacities in the bases, which could be from recent aspiration and/or pneumonia.
[2020-10-07] MEDS: Famotidine/PF 20 MG/2 ML VIAL IVPUSH (08:42)
[2020-10-07] MEDS: Chlorhexidine Gluc Oral Rinse 15 ML MOUTHWASH BUCCAL ×3 (08:42→21:35)
[2020-10-07] MEDS: fentaNYL citrate/NS 1,000 MCG/100 ML PLAST..BAG 10 MCG IVCONT (08:44)
[2020-10-07] MEDS: 0.9 % Sodium Chloride Flush 3 ML SYRINGE IVFLUSH ×3 (08:56→21:45)
[2020-10-07] MEDS: fentaNYL citrate/PF 100 MCG/2 ML VIAL 200 MCG IVPUSH (09:55)
--- NOTE | 2020-10-07 09:56 | MHC.CLN ---
F/U PEG PLACEMENT UNSUCCESSFUL RECOMMEND TPN D15 AA5% AT 40CC/HR TO PROVIDE 682KCALS, 48G PROTEIN REPLETE LYTES, MONITOR MG, K+, AND PHOS FOLLOWING
[2020-10-07] MEDS: Barium Sulfate Oral (Berry) 450 ML ORAL.SUSP PO (10:19)
[2020-10-07] MEDS: propofoL 1,000 MG/100 ML VIAL 11.28 MG IVCONT ×2 (11:12→17:34)
--- NOTE | 2020-10-07 12:45 | PM.CCPN ---
Subjective Subjective Date of Service: 10/07/20 Physical Exam Vital Signs: Vital Signs: Last Vital Signs Temp 98.3 F 10/07/20 12:00 Pulse 102 H 10/07/20 12:00 Resp 6 L 10/07/20 12:00 BP 126/74 10/07/20 12:00 Pulse Ox 99 10/07/20 12:00 Body Mass Index 17.2 Objective Data Labs CBC & Chem 7: 10/07/20 06:06 10/07/20 06:06 Labs: Laboratory Results - last 24 hr 10/06/20 10/07/20 10/07/20 17:58 06:06 06:06 WBC 10.4 RBC 2.83 L Hgb 8.4 L Hct 26.3 L MCV 92.9 MCH 29.7 MCHC 31.9 RDW 12.9 Plt Count 377 D MPV 11.2 Immature Gran % (Auto) 1.2 H Neut % (Auto) 78.6 H Lymph % (Auto) 12.8 L [place] % (Auto) 7.0 Eos % (Auto) 0.1 Baso % (Auto) 0.3 Lymph # (Auto) 1.3 [place] # (Auto) 0.7 Eos # (Auto) 0.0 Baso # (Auto) 0.0 Abs Immat Gran (auto) 0.13 H Absolute Neuts (auto) 8.2 Absolute Nucleated RBC 0.000 Nucleated RBC % (auto) 0.0 VBG pH VBG pCO2 VBG pO2 VBG HCO3 VBG O2 Saturation VBG Base Excess Sodium 141 Potassium 4.3 Chloride 106 Carbon Dioxide 28 Anion Gap 11 L BUN 6 L D Creatinine 0.49 L Estim Creat Clear Calc 109.2 Estimated GFR > 60 POC Glucose 110 Random Glucose 97 Calcium 8.2 L Total Bilirubin 0.5 AST 12 D ALT 40 Alkaline Phosphatase 67 D Total Protein 5.3 L Albumin 3.2 L 10/07/20 06:06 WBC RBC Hgb Hct MCV MCH MCHC RDW Plt Count MPV Immature Gran % (Auto) Neut % (Auto) Lymph % (Auto) [place] % (Auto) Eos % (Auto) Baso % (Auto) Lymph # (Auto) [place] # (Auto) Eos # (Auto) Baso # (Auto) Abs Immat Gran (auto) Absolute Neuts (auto) Absolute Nucleated RBC Nucleated RBC % (auto) VBG pH 7.38 VBG pCO2 46 VBG pO2 45 VBG HCO3 26 VBG O2 Saturation 78.3 VBG Base Excess 0.8 Sodium Potassium Chloride Carbon Dioxide Anion Gap BUN Creatinine Estim Creat Clear Calc Estimated GFR POC Glucose Random Glucose Calcium Total Bilirubin AST ALT Alkaline Phosphatase Total Protein Albumin Microbiology Microbiology Results: Microbiology 10/04/20 06:56 Sputum - Suctioned Gram Stain - Final 10/04/20 06:56 Sputum - Suctioned Sputum Culture - Final Enterobacter cloacae complex 10/04/20 21:00 Blood - Central Line Blood Culture - Preliminary No growth after 48 hours. 10/04/20 20:53 Blood - Central Line Blood Culture - Preliminary No growth after 48 hours. 10/04/20 06:56 Urine [place] Urine Culture - Final No growth. 09/26/20 15:00 Sputum - Suctioned Gram Stain - Final 09/26/20 15:00 Sputum - Suctioned Sputum Culture - Final Enterobacter cloacae complex 09/22/20 21:39 Blood - Venous Blood Culture - Final No growth after 5 days. 09/22/20 21:38 Blood - Venous Blood Culture - Final No growth after 5 days. 09/22/20 22:07 Urine clean catch - Clean Catch Midstream Urine Culture - Final Escherichia coli Critical Care Time Critical Care Time (minutes): 60
--- NOTE | 2020-10-07 13:19 | P.PNCC_ITS ---
Subjective Subjective Date of Service: 10/07/20 Interval History: Mr. Thurman was admitted to ICU on 09/23/2020 with acute resp failure presumed 2? aspiration pneumonia. The patient is a 60-year-old gentleman who is resident of a alf with history of developmental delay, cerebral palsy, spastic quadriplegia, seizure disorder, dysphagia, wheelchair-bound. By report the patient is nonverbal and lies in the position. HCP is his sister Sharri, who is very involved. The patient was sent to the ED from his alf late on 09/22/2020 because of fever, vomiting, and cough. The patient was found to have a left lower lobe pneumonia. The patient was intubated in the ED because of impending respiratory failure, presumed secondary to aspiration. COVID and viral PCRs were negative. The patient also had an abdominal CT which was negative except for a large stool burden within the rectum. The patient was admitted to the ICU and treated with Zosyn and vancomycin. He was also found to have a UTI. Bedside echo showed normal LV and RV size and function, with no significant valvular disease. Ultimately the patient was treated with a 7 day course of doxycycline for community-acquired pneumonia. The patient was ultimately extubated 09/28/2020, but required re-intubation later that day because of another aspiration event. Was then given a course of Unasyn. Tapering ventilator support since then. Notably, 2 attempts at placing an OG tube failed, with inability to pass the OG tube past the GE junction. The patient underwent percutaneous tracheostomy by Dr. Herrera yesterday. Following that, PEG was attempted, but accord to Dr. Herrera, they were unable to transilluminate thru the stomach wall, so the procedure was abandoned for safety reasons. On return to the ICU, I placed an 18Fr [place] sump OG tube via direct laryngoscopy. This morning, he went for an abdominal CT with oral contrast to check the anatomy of his stomach. The region of the gastric antrum appears to be accessible for percutaneous gastrostomy tube placement. On exam today, off propofol, the patient seems to look around and track. He is noncomunicative. See Vital Signs below. On fentanyl 100ug, his RR was about 13 on PSV. Sat?s high 90?s on 40% FiO2. CVBG this morning showed 7.38/46/0. Afebrile since 10/04. Anicteric, no JVD, chest with few rhonchi, normal exp phase. RRR, S1, S2 with no murmur or gallops. The abdomen is benign. Trace-1+ central edema. LABORATORY DATA: As below. MICRO: Blood cultures drawn 10/04 negative so far. Urine culture 10/04 negative so far. Sputum Gram stain 10/04 showing 4+polys, with 2+ Gram-negative rods. Cultures growing 4+ sensitive enterobacter. IMPRESSION: 1. Underlying mental retardation, cerebral palsy, spastic quadriplegia, and seizure disorder. 2. History of dysphagia, now with recurrent aspiration pneumonia. Recent difficulty placing an orogastric tube may be related to whatever the problem is that?s causing recurrent aspiration. Plan PEG or open gastrostomy tomorrow with Dr. Hester. 3. Aspiration pneumonia. 4. Acute respiratory failure 2? above. s/p tracheostomy yesterday. 5. ID: Afebrile, with normal white count, no clear evidence of pneumonia. I?m concerned about his sputum however. Doesn?t look like a colonizer. We?ll start him on five days of ceftriaxone. 6. Neuro: Underlying seizure disorder, continue valproic acid. 7. Nutrition: Start tube feeds post PEG. Needs laxation. We?re giving lactulose and an enema. Critical care time (include d/w Dr. Hester and OR staff and review of films in radiology.): 60+ min. Physical Exam Vital Signs: Vital Signs: Last Vital Signs Temp 98.3 F 10/07/20 12:00 Pulse 101 H 10/07/20 13:00 Resp 7 L 10/07/20 13:00 BP 132/66 10/07/20 13:00 Pulse Ox 98 10/07/20 13:00 Body Mass Index 17.2 Objective Data Labs CBC & Chem 7: 10/07/20 06:06 10/07/20 06:06 Labs: Laboratory Results - last 24 hr 10/06/20 10/07/20 10/07/20 17:58 06:06 06:06 WBC 10.4 RBC 2.83 L Hgb 8.4 L Hct 26.3 L MCV 92.9 MCH 29.7 MCHC 31.9 RDW 12.9 Plt Count 377 D MPV 11.2 Immature Gran % (Auto) 1.2 H Neut % (Auto) 78.6 H Lymph % (Auto) 12.8 L [place] % (Auto) 7.0 Eos % (Auto) 0.1 Baso % (Auto) 0.3 Lymph # (Auto) 1.3 [place] # (Auto) 0.7 Eos # (Auto) 0.0 Baso # (Auto) 0.0 Abs Immat Gran (auto) 0.13 H Absolute Neuts (auto) 8.2 Absolute Nucleated RBC 0.000 Nucleated RBC % (auto) 0.0 VBG pH VBG pCO2 VBG pO2 VBG HCO3 VBG O2 Saturation VBG Base Excess Sodium 141 Potassium 4.3 Chloride 106 Carbon Dioxide 28 Anion Gap 11 L BUN 6 L D Creatinine 0.49 L Estim Creat Clear Calc 109.2 Estimated GFR > 60 POC Glucose 110 Random Glucose 97 Calcium 8.2 L Total Bilirubin 0.5 AST 12 D ALT 40 Alkaline Phosphatase 67 D Total Protein 5.3 L Albumin 3.2 L 10/07/20 06:06 WBC RBC Hgb Hct MCV MCH MCHC RDW Plt Count MPV Immature Gran % (Auto) Neut % (Auto) Lymph % (Auto) [place] % (Auto) Eos % (Auto) Baso % (Auto) Lymph # (Auto) [place] # (Auto) Eos # (Auto) Baso # (Auto) Abs Immat Gran (auto) Absolute Neuts (auto) Absolute Nucleated RBC Nucleated RBC % (auto) VBG pH 7.38 VBG pCO2 46 VBG pO2 45 VBG HCO3 26 VBG O2 Saturation 78.3 VBG Base Excess 0.8 Sodium Potassium Chloride Carbon Dioxide Anion Gap BUN Creatinine Estim Creat Clear Calc Estimated GFR POC Glucose Random Glucose Calcium Total Bilirubin AST ALT Alkaline Phosphatase Total Protein Albumin Microbiology Microbiology Results: Microbiology 10/04/20 06:56 Sputum - Suctioned Gram Stain - Final 10/04/20 06:56 Sputum - Suctioned Sputum Culture - Final Enterobacter cloacae complex 10/04/20 21:00 Blood - Central Line Blood Culture - Preliminary No growth after 48 hours. 10/04/20 20:53 Blood - Central Line Blood Culture - Preliminary No growth after 48 hours. 10/04/20 06:56 Urine [place] Urine Culture - Final No growth. 09/26/20 15:00 Sputum - Suctioned Gram Stain - Final 09/26/20 15:00 Sputum - Suctioned Sputum Culture - Final Enterobacter cloacae complex 09/22/20 21:39 Blood - Venous Blood Culture - Final No growth after 5 days. 09/22/20 21:38 Blood - Venous Blood Culture - Final No growth after 5 days. 09/22/20 22:07 Urine clean catch - Clean Catch Midstream Urine Culture - Final Escherichia coli Progress Note: A&P Time Spent With Patient Time: Total time spent is greater than 50% in coordination of care (as docume nted) at patient's floor/unit and/or counseling patient: Total time spent with greater than 50% in coordination of care (as documented) at patient's floor/unit and/or counseling patient:: 0 Critical Care Time Critical Care Time (minutes): 60
--- NOTE | 2020-10-07 13:25 | P.HPGS_ITS ---
History of Present Illness History of Present Illness Date of Service: 10/07/20 <Marianna Sanders PA-C - Last Filed: 10/07/20 13:48> 10/07/20 <Kevin Hester MD - Last Filed: 10/07/20 15:35> Chief complaint: acute hypoxemic respiratory failure with bilateral <Marianna Sanders PA-C - Last Filed: 10/07/20 13:48> Narrative: History obtained from EMR as the patient is nonverbal. Ad Thurman is a nonverbal, wheelchair bound 60 year old male with a PMH significant for developmental delay, cerebral palsy, spastic quadriplegia, seizure disorder, dysphagia, who presented to the ED 09/22/2020 from his correction because of fever, vomiting and cough. The patient was found to have a left lower lobe pneumonia requiring intubation and admission to ICU on 09/23/2020 for acute respiratory failure presumed secondary to aspiration pneumonia. Extubation was attempted 09/28/2020, but required re-intubation later that day due to another aspiration event. Tracheostomy and PEG tube placement was planned. Percutaneous tracheostomy was performed yesterday 10/06/20 by thoracic surgery (Sharon) and PEG tube placement was attempted but aborted due to failure to transilluminate during the procedure. There was note on the operative report of the esophagus/GE junction being slightly tight but they were able to pass through and a small hiatal hernia but no other abnormalities. General surgery was therefore consulted for PEG tube placement. CT scan abdomen/pelvis was obtained today which showed the region of the gastric antrum appears to be accessible for percutaneous gastrostomy tube placement without any dilated bowel loops. ROS: unable to be obtained PSH: Perc trach and EGD 10/06/20; none other noted upon EMR review. <Marianna Sanders PA-C - Last Filed: 10/07/20 13:48> [facility] Past Medical History Medical History: Medical History Anxiety Cerebral palsy GERD (gastroesophageal reflux disease) Osteoporosis Seizure Sepsis Spastic quadriplegia <Marianna Sanders PA-C - Last Filed: 10/07/20 13:48> Functional capacity: bed bound <Marianna Sanders PA-C - Last Filed: 10/07/20 13:48> Family History Family history: reviewed and not pertinent <Marianna Sanders PA-C - Last Filed: 10/07/20 13:48> Social History Social History: Social History Household Members: Other Household Members Other:: [facility] Housing: House Alcohol intake: unknown Smoking Status: Unknown if ever smoked Use of substances other than those prescribed or required for medical reasons: Unknown Currently Displaying Signs/Symptoms of Drug Intoxication Withdrawal: No Advance Directives: No Advance Directives Information Provided: Yes Do you have thoughts of harming others: None Do you have a plan to hurt others: No Plan Recently lost weight without trying: Unsure service: No Current occupational status: disabled <Marianna Sanders PA-C - Last Filed: 10/07/20 13:48> Meds Allergies/Adverse reactions: Allergies Allergy/AdvReac Type Severity Reaction Status Date / Time No Known Allergies Allergy Verified 09/22/20 22:17 <Marianna Sanders PA-C - Last Filed: 10/07/20 13:48> Home medications: Home Medications Medication Instructions Recorded Confirmed Type alendronate 70 mg PO Q7D 09/22/20 09/22/20 History divalproex 250 mg PO DAILY 09/22/20 09/22/20 History divalproex 500 mg PO BEDTIME 09/22/20 09/22/20 History fluoxetine 60 mg PO DAILY@0630 09/22/20 09/22/20 History fluvoxamine 1 tab PO BEDTIME 09/22/20 09/22/20 History omeprazole 20 mg PO BID@0630,1630 09/22/20 09/22/20 History <Marianna Sanders PA-C - Last Filed: 10/07/20 13:48> Physical Exam Vital Signs: Vital Signs: Last Vital Signs Temp 98.3 F 10/07/20 12:00 Pulse 101 H 10/07/20 13:00 Resp 7 L 10/07/20 13:00 BP 132/66 10/07/20 13:00 Pulse Ox 98 10/07/20 13:00 Body Mass Index 17.2 <Marianna Sanders PA-C - Last Filed: 10/07/20 13:48> Const: General: no acute distress and awake <Marianna TommyPAULO torresZak Whaet Last Filed: 10/07/20 13:48> Nutritional Appearance: thin <Marianna EstradaPAULO torresZak Wheat Last Filed: 10/07/20 13:48> Neck: Other: Trach in place <Marianna EstradaPAULO torresZak Wheat Last Filed: 10/07/20 13:48> Resp: Effort & Inspection: normal respiratory effort <Marianna EstradaPAULO torresZak Wheat Last Filed: 10/07/20 13:48> GI: Inspection: Yes normal to inspection, No distended and No scar <Marianna EstradaPAULO torresZak Wheat Last Filed: 10/07/20 13:48> Palpation (GI): Soft to palpation, nontender and no guarding <Marianna EstradaPAULO torresZak Wheat Last Filed: 10/07/20 13:48> Percussion: Yes normal to percussion <Marianna EstradaPAULO torresZak Wheat Last Filed: 10/07/20 13:48> Auscultation: normal bowel sounds <Marianna EstradaPAULO torresZak Wheat Last Filed: 10/07/20 13:48> Skin: General skin exam: no rashes or lesions noted <Marianna EstradaPAULO torresZak Wheat Last Filed: 10/07/20 13:48> Extrem: Other: contracted <Marianna EstradaPAULO torresZak Wheat Last Filed: 10/07/20 13:48> Results Results Labs: Short CBC 10/07/20 Range/Units 06:06 WBC 10.4 (4.8-10.8) X10*3/uL Hgb 8.4 L (14.0-18.0) g/dl Hct 26.3 L (42-52) % Plt Count 377 D (160-400) X10*3/uL BMP 10/07/20 06:06 Sodium 141 Potassium 4.3 Chloride 106 Carbon Dioxide 28 BUN 6 L D Creatinine 0.49 L Calcium 8.2 L Liver Function 10/07/20 Range/Units 06:06 Total Bilirubin 0.5 (0.0-1.0) mg/dL AST 12 D (5-37) U/L ALT 40 (0-40) U/L Alkaline Phosphatase 67 D (39-117) U/L Albumin 3.2 L (3.5-5.0) g/dL Urine 09/22/20 Range/Units 21:59 Urine Color YELLOW Urine Appearance HAZY Urine pH 6.0 (5.0-8.0) Ur Specific [place] 1.025 (1.005-1.025) Urine Protein NEG (NEG-TRACE) MG/DL Urine Glucose (UA) NEG (NEG) MG/DL <Marianna Sanders PA-C - Last Filed: 10/07/20 13:48> Assessment and Plan (1) Aspiration pneumonia: Status: Acute <Marianna Sanders PA-C - Last Filed: 10/07/20 13:48> Failed PEG tube placement by thoracic surgery yesterday. Review of CT scan showed adequate anatomy for PEG tube placement with the antrum accessible. He has no history or evidence of any abdominal surgeries. Dr. Hester to attempt PEG tube placement tomorrow in OR. <AMRTHA Hutton - Last Filed: 10/07/20 13:48> (2) Acute respiratory failure: Qualifiers: Respiratory failure complication: hypoxia Qualified Code(s): J96.01 - Acute respiratory failure with hypoxia <Marianna Sanders PA-C - Last Filed: 10/07/20 13:48> Status: Acute <Marianna Sanders PA-C - Last Filed: 10/07/20 13:48> (3) Seizure: Status: Acute <Marianna Sanders PA-C - Last Filed: 10/07/20 13:48> (4) Cerebral palsy: Status: Acute <Marianna Sanders PA-C - Last Filed: 10/07/20 13:48> 60-year-old male admitted for aspiration pneumonia. He has an extensive medical history with cerebral palsy, spastic quadriplegia In view of his respiratory failure, tracheostomy was done yesterday by Dr. Herrera; A PEG tube placement was attempted as well but he was unable to see transillumination nor indentation of the anterior stomach wall for landmarks I have been consulted today to attempt PEG tube placement and possible open gastrostomy tube placement I have reviewed his CT scan today -there seems to be good anatomy of the stomach, with a significant window for placement of the PEG tube in the epigastric area I therefore discussed this plan of attempting another PEG tube. I reviewed this with his healthcare proxy, the sister Sharri Thurman at phone number [phone] and [phone] I explained to her the technique of PEG tube placement and possible open G-tube placement. Explained the risks including but not limited to bleeding, infections, bowel injury, tube dislodgement, leakage around the tube, as well as the benefits and alternatives Sharri has given consent Plan for PEG tube, possible open gastrostomy tube placement tomorrow Patient seen and examined -agree with PAULO Sanders Plan discussed with ICU staff <Kevin Hester MD - Last Filed: 10/07/20 15:35> (5) UTI (urinary tract infection): Status: Acute <Marianna Sanders PA-C - Last Filed: 10/07/20 13:48> (6) GERD (gastroesophageal reflux disease): Status: Acute <Marianna Sanders PA-C - Last Filed: 10/07/20 13:48>
[2020-10-07] MEDS: Lactulose 20 GM/30 ML SOLUTION 30 GM PR ×2 (14:28→21:35)
[2020-10-07] MEDS: Heparin Sodium,Porcine 5,000 UNIT/ML VIAL 5000 UNIT SUBCUT ×2 (14:30→21:44)
[2020-10-07] MEDS: fentaNYL citrate/NS 1,000 MCG/100 ML PLAST..BAG 18 MCG IVCONT (14:39)
--- NOTE | 2020-10-07 14:56 | HO.POSTANES ---
Post Anesthesia Evaluation Post Anesthesia Evaluation Vital Signs: Vital Signs Temp Pulse Resp BP Pulse Ox 10/07/20 14:00 96 6 L 131/75 97 10/07/20 13:00 101 H 7 L 132/66 98 10/07/20 12:00 98.3 F 102 H 6 L 126/74 99 10/07/20 10:51 86 13 136/73 100 10/07/20 09:00 102 H 10 L 127/80 100 10/07/20 07:46 97.8 F 86 14 120/70 98 10/07/20 07:00 81 18 122/66 97 10/07/20 03:25 98.3 F 83 18 98/61 99 Anesthesia: General Endotracheal-GETA Mental Status: Awake Pain Control: Satisfactory Nausea/Vomiting: None Hydration: Adequate Anesthesia-Related Issues: No Anes. Related Issues
[2020-10-07] MEDS: Sodium Phosphate,Mono-Dibasic 133 ML ENEMA PR (15:16)
[2020-10-07] MEDS: fentaNYL citrate/NS 1,000 MCG/100 ML PLAST..BAG 17.5 MCG IVCONT (19:34)
[2020-10-07] MEDS: cefTRIAXone sodium 1 GM in 0.9 % Sodium Chloride 50 ML IV (21:34)
[2020-10-08] VITALS (34 sets, daily range): BP systolic 98–146; BP diastolic 51–85; PULSE 13–138; RESP 10–29; TEMP 36.8–38.1; O2SAT 93–97; BMI 17.6
[2020-10-08] MEDS: propofoL 1,000 MG/100 ML VIAL 8.46 MG IVCONT (02:08)
[2020-10-08] MEDS: fentaNYL citrate/NS 1,000 MCG/100 ML PLAST..BAG 10 MCG IVCONT (04:39)
[2020-10-08] MEDS: Heparin Sodium,Porcine 5,000 UNIT/ML VIAL 5000 UNIT SUBCUT ×3 (04:40→20:54)
--- NOTE | 2020-10-08 05:44 | PC.NURSE ---
PT AFEBRILE. ST ON TELE, HR 100-120s. LEVOPHED GTT TITRATED OFF. PT SEDATE ON PROPOFOL/FENTANYL, TITRATED PER MD ORDER. DOES NOT FOLLOW COMMANDS/TRACK. ON PSV OVERNIGHT, SETTINGS 12/5/21%, RR 10-20, SpO2>92%. LS CLEAR. #8 [place] TRACH- INCISION SITE INTACT, SCANT BLOODY DRAINAGE. OGT REINFORCED, TUBE FEEDS OFF PER MD FOR PEG TODAY. ERWIN IN PLACE, UOP 30-50 ML/HR, URINE GREEN TINGED. SMALL BM THIS SHIFT. FULL CHG BATH GIVEN. ORAL CARE PROVIDED. SKIN INTACT WITH SCATTERED REDNESS/BRUISING. ON AIR LOSS BED. REPOSITIONED Q2H.
[2020-10-08 05:51] LABS: MANUAL DIFF FLAG NO
[2020-10-08 06:02] LABS: Basophils Percent Auto 0.3 % (0-2); Eosinophils Absolute Auto 0.1 X10*3/uL (0.0-0.4); Eosinophils Percent Auto 1.3 % (0-4); Hematocrit 26.6 % (42-52); Hemoglobin 8.5 g/dl (14.0-18.0); Imm Gran Abs Auto 0.13 X10*3/uL (0.00-0.03); Imm Gran Pct Auto 1.2 % (0.0-0.4); Lymphocytes Absolute Auto 1.4 X10*3/uL (1.2-4.9); Lymphocytes Percent Auto 12.5 % (20-40); Mean Corpuscular Hemoglobin 29.9 pg (27.0-33.0); Mean Corpuscular Volume 93.7 fL (80-98); Mean Platelet Volume 11.1 fL (9.4-12.4); Monocytes Absolute Auto 1.1 X10*3/uL (0.1-1.2); Neutrophils Absolute Auto 8.4 X10*3/uL (2.0-8.3); Neutrophils Percent Auto 74.7 % (45-73); Platelet Count 392 X10*3/uL (160-400); Red Blood Count 2.84 X10*6/uL (4.60-5.80); Red Cell Distribution Width 13.1 % (11.0-16.0); White Blood Count 11.2 X10*3/uL (4.8-10.8)
[2020-10-08 06:03] LABS: PCO2 VBG 38 mmhg; PO2 VBG 39 mmhg; pH VBG 7.47 (7.32-7.43)
[2020-10-08 06:04] LABS: Base Excess VBG 3.1 mmol/L; HCO3 VBG 27 mmol/L; Oxygen Saturation VBG 73.9 %
[2020-10-08 06:29] LABS: Alanine Aminotransferase 33 U/L (0-40); Albumin Level 3.3 g/dL (3.5-5.0); Alkaline Phosphatase 73 U/L (39-117); Anion Gap 12 (12-20); Aspartate Amino Transferase 19 U/L (5-37); Bilirubin Total 0.4 mg/dL (0.0-1.0); Blood Urea Nitrogen 6 mg/dL (9-16); Calcium 8.1 mg/dL (8.4-10.2); Carbon Dioxide 28 mmol/L (22-29); Chloride 104 mmol/L (96-108); Creatinine Clr Calc Pharmacy 96.7; Estimated Glomerular Filt Rate > 60; Glucose Random 87 mg/dL (60-115); Potassium 3.4 mmol/l (3.3-5.1); Sodium 141 mmol/L (135-145); Total Protein 5.7 g/dL (6.5-8.0)
[2020-10-08] MEDS: Chlorhexidine Gluc Oral Rinse 15 ML MOUTHWASH BUCCAL ×2 (08:43→15:15)
[2020-10-08] MEDS: 0.9 % Sodium Chloride Flush 3 ML SYRINGE IVFLUSH ×2 (08:43→15:19)
[2020-10-08] MEDS: Famotidine/PF 20 MG/2 ML VIAL IVPUSH (09:15)
[2020-10-08] MEDS: Lactulose 20 GM/30 ML SOLUTION 30 GM PR (09:17)
--- NOTE | 2020-10-08 09:38 | P.CONAN_ITS ---
HPI - Anesthesia Eval Consult details Narrative: 60yo old patient with CP, recurrent aspiration pneumonia, here for PEG placement. [facility] Past Medical History Medical History (Updated 10/08/20 @ 10:49 by Almita Ware) Acute respiratory failure Anxiety Aspiration pneumonia Cerebral palsy GERD (gastroesophageal reflux disease) Osteoporosis Seizure Sepsis Spastic quadriplegia Functional capacity: bed bound Surgical History Surgical History (Updated 10/08/20 @ 10:57 by Almita Ware) H/O tracheostomy Social History Social History Household Members: Other Household Members Other:: half-way Housing: House Alcohol intake: unknown Smoking Status: Unknown if ever smoked Use of substances other than those prescribed or required for medical reasons: Unknown Currently Displaying Signs/Symptoms of Drug Intoxication Withdrawal: No Advance Directives: No Advance Directives Information Provided: Yes Do you have thoughts of harming others: None Do you have a plan to hurt others: No Plan Recently lost weight without trying: Unsure service: No Current occupational status: disabled [employer] Allergies Allergy/AdvReac Type Severity Reaction Status Date / Time No Known Allergies Allergy Verified 09/22/20 22:17 Home Medications Medication Instructions Recorded Confirmed Type alendronate 70 mg PO Q7D 09/22/20 09/22/20 History divalproex 250 mg PO DAILY 09/22/20 09/22/20 History divalproex 500 mg PO BEDTIME 09/22/20 09/22/20 History fluoxetine 60 mg PO DAILY@0630 09/22/20 09/22/20 History fluvoxamine 1 tab PO BEDTIME 09/22/20 09/22/20 History omeprazole 20 mg PO BID@0630,1630 09/22/20 09/22/20 History Exam Exam Date and Time: October 08, 2020 0938 Height,Weight and Vital Signs: Height 5 ft 4 in Weight 46.7 kg Last Vital Signs Temp 99.5 F 10/08/20 08:00 Pulse 122 H 10/08/20 09:00 Resp 22 H 10/08/20 09:00 BP 98/57 L 10/08/20 09:00 Pulse Ox 95 10/08/20 09:00 Pertinent Lab Results Pertinent Lab Results: Laboratory Tests 09/22/20 09/22/20 09/22/20 21:28 21:29 21:29 WBC 19.6 H RBC 4.08 L Hgb 12.6 L Hct 37.7 L MCV 92.4 MCH 30.9 MCHC 33.4 RDW 12.1 Plt Count 233 MPV 11.0 Immature Gran % (Auto) 0.3 Neut % (Auto) 92.4 H Lymph % (Auto) 1.8 L [place] % (Auto) 5.3 Eos % (Auto) 0.0 Baso % (Auto) 0.2 Lymph # (Auto) 0.4 L [place] # (Auto) 1.0 Eos # (Auto) 0.0 Baso # (Auto) 0.0 Abs Immat Gran (auto) 0.05 H Absolute Neuts (auto) 18.1 H Absolute Nucleated RBC 0.000 Nucleated RBC % (auto) 0.0 Neutrophils % (Manual) Band Neutrophils % Lymphocytes % (Manual) Monocytes % (Manual) Metamyelocytes % Abs Neuts (Manual) Lymphocytes # (Manual) Monocytes # (Manual) Metamyelocytes # Platelet Estimate Plt Morphology Comment RBC Morphology Hypochromasia Smear Tech's Comments VERIFIED PT INR D-Dimer ABG pH ABG pCO2 ABG pO2 ABG HCO3 ABG O2 Saturation ABG Base Excess VBG pH VBG pCO2 VBG pO2 VBG HCO3 VBG O2 Saturation VBG Base Excess Oxygen Given Sodium 136 Potassium 3.6 Chloride 101 Carbon Dioxide 24 Anion Gap 15 BUN 23 H Creatinine 0.80 Estim Creat Clear Calc 65.2 Estimated GFR > 60 POC Glucose Random Glucose 118 H Fasting Glucose Lactic Acid Lactic Acid Fup @ 2Hr Calcium 8.6 Phosphorus Magnesium Ferritin Total Bilirubin 0.4 Direct Bilirubin 0.2 AST 35 ALT 30 Alkaline Phosphatase 66 Lactate Dehydrogenase Total Creatine Kinase C-Reactive Protein Total Protein 6.7 Albumin 3.8 Lipase 39 Procalcitonin Urine Color Urine Appearance Urine pH Ur Specific [place] Urine Protein Urine Glucose (UA) Urine Ketones Urine Blood Urine Nitrite Ur Leukocyte Esterase Urine RBC Urine WBC Ur Squamous Epith Cells Urine Bacteria Urine Mucus Nasal Screen MRSA (PCR) Nasal S. aureus Screen Nasal MRSA/S.aureus Interp Vancomycin Trough Respiratory Panel Daniel Adenovirus (Rapid PCR) B.pert (TEM-PCR) B.parapertussis DNA PCR C. pneumoniae DNA (PCR) Coronavirus (PCR) Coronavirus OC43 (PCR) Coronavirus HKU1 (PCR) Coronavirus 229E (PCR) COVID-19 ([facility]ATE) Negative COVID-19 Clin Com See Note Coronavirus NL63 (PCR) Human Metapneumovir PCR Influenza A (RT-PCR) Influenza Type A (PCR) Influenza B (RT-PCR) Influenza Type B (PCR) Ur L.pneumophila Ag M. pneumoniae (PCR) Parainfluenza 1 (PCR) Parainfluenza 2 (PCR) Parainfluenza 3 (PCR) Parainfluenza 4 (PCR) RSV (PCR) RSV RNA Qual (PCR) Entero/Rhino (PCR) SARS-CoV-2 RNA (RT-PCR) SARS-CoV-2 IgG Ab Ur Strep pneumoniae Ag Blood Type Antibody Screen 09/22/20 09/22/20 09/23/20 21:29 21:59 04:10 WBC RBC Hgb Hct MCV MCH MCHC RDW Plt Count MPV Immature Gran % (Auto) Neut % (Auto) Lymph % (Auto) [place] % (Auto) Eos % (Auto) Baso % (Auto) Lymph # (Auto) [place] # (Auto) Eos # (Auto) Baso # (Auto) Abs Immat Gran (auto) Absolute Neuts (auto) Absolute Nucleated RBC Nucleated RBC % (auto) Neutrophils % (Manual) Band Neutrophils % Lymphocytes % (Manual) Monocytes % (Manual) Metamyelocytes % Abs Neuts (Manual) Lymphocytes # (Manual) Monocytes # (Manual) Metamyelocytes # Platelet Estimate Plt Morphology Comment RBC Morphology Hypochromasia Smear Tech's Comments PT INR D-Dimer ABG pH ABG pCO2 ABG pO2 ABG HCO3 ABG O2 Saturation ABG Base Excess VBG pH VBG pCO2 VBG pO2 VBG HCO3 VBG O2 Saturation VBG Base Excess Oxygen Given Sodium Potassium Chloride Carbon Dioxide Anion Gap BUN Creatinine Estim Creat Clear Calc Estimated GFR POC Glucose Random Glucose Fasting Glucose Lactic Acid 2.7 H* 2.2 H* Lactic Acid Fup @ 2Hr Calcium Phosphorus Magnesium Ferritin Total Bilirubin Direct Bilirubin AST ALT Alkaline Phosphatase Lactate Dehydrogenase Total Creatine Kinase C-Reactive Protein Total Protein Albumin Lipase Procalcitonin Urine Color YELLOW Urine Appearance HAZY Urine pH 6.0 Ur Specific [place] 1.025 Urine Protein NEG Urine Glucose (UA) NEG Urine Ketones NEG Urine Blood 1+ H Urine Nitrite NEG Ur Leukocyte Esterase TRACE H Urine RBC 1-4 Urine WBC 1-4 Ur Squamous Epith Cells NONE Urine Bacteria NONE Urine Mucus 2+ Nasal Screen MRSA (PCR) Nasal S. aureus Screen Nasal MRSA/S.aureus Interp Vancomycin Trough Respiratory Panel Daniel Adenovirus (Rapid PCR) B.pert (TEM-PCR) B.parapertussis DNA PCR C. pneumoniae DNA (PCR) Coronavirus (PCR) Coronavirus OC43 (PCR) Coronavirus HKU1 (PCR) Coronavirus 229E (PCR) COVID-19 ([facility]ATE) COVID-19 Clin Com Coronavirus NL63 (PCR) Human Metapneumovir PCR Influenza A (RT-PCR) Influenza Type A (PCR) Influenza B (RT-PCR) Influenza Type B (PCR) Ur L.pneumophila Ag M. pneumoniae (PCR) Parainfluenza 1 (PCR) Parainfluenza 2 (PCR) Parainfluenza 3 (PCR) Parainfluenza 4 (PCR) RSV (PCR) RSV RNA Qual (PCR) Entero/Rhino (PCR) SARS-CoV-2 RNA (RT-PCR) SARS-CoV-2 IgG Ab Ur Strep pneumoniae Ag Blood Type Antibody Screen 09/23/20 09/23/20 09/23/20 04:38 10:31 10:31 WBC RBC Hgb Hct MCV MCH MCHC RDW Plt Count MPV Immature Gran % (Auto) Neut % (Auto) Lymph % (Auto) [place] % (Auto) Eos % (Auto) Baso % (Auto) Lymph # (Auto) [place] # (Auto) Eos # (Auto) Baso # (Auto) Abs Immat Gran (auto) Absolute Neuts (auto) Absolute Nucleated RBC Nucleated RBC % (auto) Neutrophils % (Manual) Band Neutrophils % Lymphocytes % (Manual) Monocytes % (Manual) Metamyelocytes % Abs Neuts (Manual) Lymphocytes # (Manual) Monocytes # (Manual) Metamyelocytes # Platelet Estimate Plt Morphology Comment RBC Morphology Hypochromasia Smear Tech's Comments PT INR D-Dimer ABG pH ABG pCO2 ABG pO2 ABG HCO3 ABG O2 Saturation ABG Base Excess VBG pH 7.34 VBG pCO2 38 VBG pO2 53 VBG HCO3 20 VBG O2 Saturation 85.4 VBG Base Excess -5.3 Oxygen Given Sodium Potassium Chloride Carbon Dioxide Anion Gap BUN Creatinine Estim Creat Clear Calc Estimated GFR POC Glucose Random Glucose Fasting Glucose Lactic Acid Lactic Acid Fup @ 2Hr Calcium Phosphorus Magnesium Ferritin Total Bilirubin Direct Bilirubin AST ALT Alkaline Phosphatase Lactate Dehydrogenase Total Creatine Kinase C-Reactive Protein Total Protein Albumin Lipase Procalcitonin Urine Color Urine Appearance Urine pH Ur Specific [place] Urine Protein Urine Glucose (UA) Urine Ketones Urine Blood Urine Nitrite Ur Leukocyte Esterase Urine RBC Urine WBC Ur Squamous Epith Cells Urine Bacteria Urine Mucus Nasal Screen MRSA (PCR) Nasal S. aureus Screen Nasal MRSA/S.aureus Interp Vancomycin Trough Respiratory Panel Daniel See Note Adenovirus (Rapid PCR) Not Detected B.pert (TEM-PCR) Not Detected B.parapertussis DNA PCR Not Detected C. pneumoniae DNA (PCR) Not Detected Coronavirus (PCR) Coronavirus OC43 (PCR) Not Detected Coronavirus HKU1 (PCR) Not Detected Coronavirus 229E (PCR) Not Detected COVID-19 ([facility]) COVID-19 Clin Com Coronavirus NL63 (PCR) Not Detected Human Metapneumovir PCR Not Detected Influenza A (RT-PCR) Not Detected Influenza Type A (PCR) Influenza B (RT-PCR) Not Detected Influenza Type B (PCR) Ur L.pneumophila Ag Not Detected M. pneumoniae (PCR) Not Detected Parainfluenza 1 (PCR) Not Detected Parainfluenza 2 (PCR) Not Detected Parainfluenza 3 (PCR) Not Detected Parainfluenza 4 (PCR) Not Detected RSV (PCR) Not Detected RSV RNA Qual (PCR) Entero/Rhino (PCR) Not Detected SARS-CoV-2 RNA (RT-PCR) Not Detected SARS-CoV-2 IgG Ab Ur Strep pneumoniae Ag Not Detected Blood Type Antibody Screen 09/23/20 09/23/20 09/23/20 10:41 10:41 10:41 WBC 16.9 H RBC 3.32 L Hgb 10.3 L Hct 31.6 L MCV 95.2 MCH 31.0 MCHC 32.6 RDW 12.6 Plt Count 144 L D MPV 11.1 Immature Gran % (Auto) Cancelled Neut % (Auto) Cancelled Lymph % (Auto) Cancelled [place] % (Auto) Cancelled Eos % (Auto) Cancelled Baso % (Auto) Cancelled Lymph # (Auto) Cancelled [place] # (Auto) Cancelled Eos # (Auto) Cancelled Baso # (Auto) Cancelled Abs Immat Gran (auto) Cancelled Absolute Neuts (auto) Cancelled Absolute Nucleated RBC 0.000 Nucleated RBC % (auto) 0.0 Neutrophils % (Manual) 69 Band Neutrophils % 19 H Lymphocytes % (Manual) 9 L Monocytes % (Manual) 2 Metamyelocytes % 1 Abs Neuts (Manual) 14.9 H Lymphocytes # (Manual) 1.5 Monocytes # (Manual) 0.3 Metamyelocytes # 0.2 Platelet Estimate SLIGHTLY DECREASED Plt Morphology Comment NORMAL RBC Morphology NOTED Hypochromasia 1+ Smear Tech's Comments PT INR D-Dimer ABG pH ABG pCO2 ABG pO2 ABG HCO3 ABG O2 Saturation ABG Base Excess VBG pH VBG pCO2 VBG pO2 VBG HCO3 VBG O2 Saturation VBG Base Excess Oxygen Given Sodium 139 Potassium 4.2 Chloride 109 H Carbon Dioxide 26 Anion Gap 8 L BUN 16 Creatinine 0.66 Estim Creat Clear Calc 79.0 Estimated GFR > 60 POC Glucose Random Glucose 98 Fasting Glucose Lactic Acid Lactic Acid Fup @ 2Hr 1.1 Calcium 6.8 L D Phosphorus Magnesium Ferritin Total Bilirubin Direct Bilirubin AST ALT Alkaline Phosphatase Lactate Dehydrogenase Total Creatine Kinase C-Reactive Protein Total Protein Albumin Lipase Procalcitonin Urine Color Urine Appearance Urine pH Ur Specific [place] Urine Protein Urine Glucose (UA) Urine Ketones Urine Blood Urine Nitrite Ur Leukocyte Esterase Urine RBC Urine WBC Ur Squamous Epith Cells Urine Bacteria Urine Mucus Nasal Screen MRSA (PCR) Nasal S. aureus Screen Nasal MRSA/S.aureus Interp Vancomycin Trough Respiratory Panel Daniel Adenovirus (Rapid PCR) B.pert (TEM-PCR) B.parapertussis DNA PCR C. pneumoniae DNA (PCR) Coronavirus (PCR) Coronavirus OC43 (PCR) Coronavirus HKU1 (PCR) Coronavirus 229E (PCR) COVID-19 ([facility]) COVID-19 Clin Com Coronavirus NL63 (PCR) Human Metapneumovir PCR Influenza A (RT-PCR) Influenza Type A (PCR) Influenza B (RT-PCR) Influenza Type B (PCR) Ur L.pneumophila Ag M. pneumoniae (PCR) Parainfluenza 1 (PCR) Parainfluenza 2 (PCR) Parainfluenza 3 (PCR) Parainfluenza 4 (PCR) RSV (PCR) RSV RNA Qual (PCR) Entero/Rhino (PCR) SARS-CoV-2 RNA (RT-PCR) SARS-CoV-2 IgG Ab Ur Strep pneumoniae Ag Blood Type Antibody Screen 09/23/20 09/23/20 09/24/20 12:53 12:53 02:15 WBC RBC Hgb Hct MCV MCH MCHC RDW Plt Count MPV Immature Gran % (Auto) Neut % (Auto) Lymph % (Auto) [place] % (Auto) Eos % (Auto) Baso % (Auto) Lymph # (Auto) [place] # (Auto) Eos # (Auto) Baso # (Auto) Abs Immat Gran (auto) Absolute Neuts (auto) Absolute Nucleated RBC Nucleated RBC % (auto) Neutrophils % (Manual) Band Neutrophils % Lymphocytes % (Manual) Monocytes % (Manual) Metamyelocytes % Abs Neuts (Manual) Lymphocytes # (Manual) Monocytes # (Manual) Metamyelocytes # Platelet Estimate Plt Morphology Comment RBC Morphology Hypochromasia Smear Tech's Comments PT INR D-Dimer ABG pH ABG pCO2 ABG pO2 ABG HCO3 ABG O2 Saturation ABG Base Excess VBG pH 7.33 7.43 VBG pCO2 42 35 VBG pO2 57 51 VBG HCO3 22 23 VBG O2 Saturation 87.9 85.9 VBG Base Excess -4.2 -1.3 Oxygen Given Sodium Potassium Chloride Carbon Dioxide Anion Gap BUN Creatinine Estim Creat Clear Calc Estimated GFR POC Glucose Random Glucose Fasting Glucose Lactic Acid Lactic Acid Fup @ 2Hr Calcium Phosphorus Magnesium Ferritin Total Bilirubin Direct Bilirubin AST ALT Alkaline Phosphatase Lactate Dehydrogenase Total Creatine Kinase C-Reactive Protein Total Protein Albumin Lipase Procalcitonin Urine Color Urine Appearance Urine pH Ur Specific [place] Urine Protein Urine Glucose (UA) Urine Ketones Urine Blood Urine Nitrite Ur Leukocyte Esterase Urine RBC Urine WBC Ur Squamous Epith Cells Urine Bacteria Urine Mucus Nasal Screen MRSA (PCR) Nasal S. aureus Screen Nasal MRSA/S.aureus Interp Vancomycin Trough < 3.0 L Respiratory Panel Daniel Adenovirus (Rapid PCR) B.pert (TEM-PCR) B.parapertussis DNA PCR C. pneumoniae DNA (PCR) Coronavirus (PCR) Coronavirus OC43 (PCR) Coronavirus HKU1 (PCR) Coronavirus 229E (PCR) COVID-19 ([facility]) COVID-19 Clin Com Coronavirus NL63 (PCR) Human Metapneumovir PCR Influenza A (RT-PCR) Influenza Type A (PCR) Influenza B (RT-PCR) Influenza Type B (PCR) Ur L.pneumophila Ag M. pneumoniae (PCR) Parainfluenza 1 (PCR) Parainfluenza 2 (PCR) Parainfluenza 3 (PCR) Parainfluenza 4 (PCR) RSV (PCR) RSV RNA Qual (PCR) Entero/Rhino (PCR) SARS-CoV-2 RNA (RT-PCR) SARS-CoV-2 IgG Ab Ur Strep pneumoniae Ag Blood Type Antibody Screen 09/24/20 09/24/20 09/24/20 05:20 05:20 05:20 WBC 11.3 H RBC 3.07 L Hgb 9.2 L Hct 28.4 L MCV 92.5 MCH 30.0 MCHC 32.4 RDW 12.4 Plt Count 140 L MPV 11.9 Immature Gran % (Auto) 0.4 Neut % (Auto) 93.6 H Lymph % (Auto) 2.1 L [place] % (Auto) 3.8 Eos % (Auto) 0.0 Baso % (Auto) 0.1 Lymph # (Auto) 0.2 L [place] # (Auto) 0.4 Eos # (Auto) 0.0 Baso # (Auto) 0.0 Abs Immat Gran (auto) 0.04 H Absolute Neuts (auto) 10.6 H Absolute Nucleated RBC 0.000 Nucleated RBC % (auto) 0.0 Neutrophils % (Manual) Band Neutrophils % Lymphocytes % (Manual) Monocytes % (Manual) Metamyelocytes % Abs Neuts (Manual) Lymphocytes # (Manual) Monocytes # (Manual) Metamyelocytes # Platelet Estimate Plt Morphology Comment RBC Morphology Hypochromasia Smear Tech's Comments VERIFIED PT INR D-Dimer 991 ABG pH ABG pCO2 ABG pO2 ABG HCO3 ABG O2 Saturation ABG Base Excess VBG pH VBG pCO2 VBG pO2 VBG HCO3 VBG O2 Saturation VBG Base Excess Oxygen Given Sodium 141 Potassium 3.1 L D Chloride 111 H Carbon Dioxide 23 Anion Gap 10 L BUN 13 Creatinine 0.59 Estim Creat Clear Calc 88.4 Estimated GFR > 60 POC Glucose Random Glucose 136 H D Fasting Glucose Lactic Acid Lactic Acid Fup @ 2Hr Calcium 6.6 L Phosphorus 1.8 L Magnesium 2.1 Ferritin Total Bilirubin Direct Bilirubin AST ALT Alkaline Phosphatase Lactate Dehydrogenase 742 H Total Creatine Kinase 517 H C-Reactive Protein 28.94 H Total Protein Albumin Lipase Procalcitonin Urine Color Urine Appearance Urine pH Ur Specific [place] Urine Protein Urine Glucose (UA) Urine Ketones Urine Blood Urine Nitrite Ur Leukocyte Esterase Urine RBC Urine WBC Ur Squamous Epith Cells Urine Bacteria Urine Mucus Nasal Screen MRSA (PCR) Nasal S. aureus Screen Nasal MRSA/S.aureus Interp Vancomycin Trough Respiratory Panel Daniel Adenovirus (Rapid PCR) B.pert (TEM-PCR) B.parapertussis DNA PCR C. pneumoniae DNA (PCR) Coronavirus (PCR) Coronavirus OC43 (PCR) Coronavirus HKU1 (PCR) Coronavirus 229E (PCR) COVID-19 ([facility]) COVID-19 Clin Com Coronavirus NL63 (PCR) Human Metapneumovir PCR Influenza A (RT-PCR) Influenza Type A (PCR) Influenza B (RT-PCR) Influenza Type B (PCR) Ur L.pneumophila Ag M. pneumoniae (PCR) Parainfluenza 1 (PCR) Parainfluenza 2 (PCR) Parainfluenza 3 (PCR) Parainfluenza 4 (PCR) RSV (PCR) RSV RNA Qual (PCR) Entero/Rhino (PCR) SARS-CoV-2 RNA (RT-PCR) SARS-CoV-2 IgG Ab Ur Strep pneumoniae Ag Blood Type Antibody Screen 09/24/20 09/24/20 09/24/20 05:20 05:20 05:20 WBC RBC Hgb Hct MCV MCH MCHC RDW Plt Count MPV Immature Gran % (Auto) Neut % (Auto) Lymph % (Auto) [place] % (Auto) Eos % (Auto) Baso % (Auto) Lymph # (Auto) [place] # (Auto) Eos # (Auto) Baso # (Auto) Abs Immat Gran (auto) Absolute Neuts (auto) Absolute Nucleated RBC Nucleated RBC % (auto) Neutrophils % (Manual) Band Neutrophils % Lymphocytes % (Manual) Monocytes % (Manual) Metamyelocytes % Abs Neuts (Manual) Lymphocytes # (Manual) Monocytes # (Manual) Metamyelocytes # Platelet Estimate Plt Morphology Comment RBC Morphology Hypochromasia Smear Tech's Comments PT INR D-Dimer ABG pH ABG pCO2 ABG pO2 ABG HCO3 ABG O2 Saturation ABG Base Excess VBG pH 7.43 VBG pCO2 33 VBG pO2 46 VBG HCO3 21 VBG O2 Saturation 83.8 VBG Base Excess -2.6 Oxygen Given Sodium Potassium Chloride Carbon Dioxide Anion Gap BUN Creatinine Estim Creat Clear Calc Estimated GFR POC Glucose Random Glucose Fasting Glucose Lactic Acid 0.7 Lactic Acid Fup @ 2Hr Calcium Phosphorus Magnesium Ferritin Total Bilirubin Direct Bilirubin AST ALT Alkaline Phosphatase Lactate Dehydrogenase Total Creatine Kinase C-Reactive Protein Total Protein Albumin Lipase Procalcitonin 3.44 Urine Color Urine Appearance Urine pH Ur Specific [place] Urine Protein Urine Glucose (UA) Urine Ketones Urine Blood Urine Nitrite Ur Leukocyte Esterase Urine RBC Urine WBC Ur Squamous Epith Cells Urine Bacteria Urine Mucus Nasal Screen MRSA (PCR) Nasal S. aureus Screen Nasal MRSA/S.aureus Interp Vancomycin Trough Respiratory Panel Daniel Adenovirus (Rapid PCR) B.pert (TEM-PCR) B.parapertussis DNA PCR C. pneumoniae DNA (PCR) Coronavirus (PCR) Coronavirus OC43 (PCR) Coronavirus HKU1 (PCR) Coronavirus 229E (PCR) COVID-19 ([facility]) COVID-19 Clin Com Coronavirus NL63 (PCR) Human Metapneumovir PCR Influenza A (RT-PCR) Influenza Type A (PCR) Influenza B (RT-PCR) Influenza Type B (PCR) Ur L.pneumophila Ag M. pneumoniae (PCR) Parainfluenza 1 (PCR) Parainfluenza 2 (PCR) Parainfluenza 3 (PCR) Parainfluenza 4 (PCR) RSV (PCR) RSV RNA Qual (PCR) Entero/Rhino (PCR) SARS-CoV-2 RNA (RT-PCR) SARS-CoV-2 IgG Ab Ur Strep pneumoniae Ag Blood Type Antibody Screen 09/24/20 09/24/20 09/24/20 12:30 15:05 22:29 WBC RBC Hgb Hct MCV MCH MCHC RDW Plt Count MPV Immature Gran % (Auto) Neut % (Auto) Lymph % (Auto) [place] % (Auto) Eos % (Auto) Baso % (Auto) Lymph # (Auto) [place] # (Auto) Eos # (Auto) Baso # (Auto) Abs Immat Gran (auto) Absolute Neuts (auto) Absolute Nucleated RBC Nucleated RBC % (auto) Neutrophils % (Manual) Band Neutrophils % Lymphocytes % (Manual) Monocytes % (Manual) Metamyelocytes % Abs Neuts (Manual) Lymphocytes # (Manual) Monocytes # (Manual) Metamyelocytes # Platelet Estimate Plt Morphology Comment RBC Morphology Hypochromasia Smear Tech's Comments PT INR D-Dimer ABG pH ABG pCO2 ABG pO2 ABG HCO3 ABG O2 Saturation ABG Base Excess VBG pH VBG pCO2 VBG pO2 VBG HCO3 VBG O2 Saturation VBG Base Excess Oxygen Given Sodium Potassium Chloride Carbon Dioxide Anion Gap BUN Creatinine Estim Creat Clear Calc Estimated GFR POC Glucose Random Glucose Fasting Glucose Lactic Acid Lactic Acid Fup @ 2Hr Calcium Phosphorus Magnesium Ferritin Total Bilirubin Direct Bilirubin AST ALT Alkaline Phosphatase Lactate Dehydrogenase Total Creatine Kinase C-Reactive Protein Total Protein Albumin Lipase Procalcitonin Urine Color Urine Appearance Urine pH Ur Specific [place] Urine Protein Urine Glucose (UA) Urine Ketones Urine Blood Urine Nitrite Ur Leukocyte Esterase Urine RBC Urine WBC Ur Squamous Epith Cells Urine Bacteria Urine Mucus Nasal Screen MRSA (PCR) NEGATIVE Nasal S. aureus Screen NEGATIVE Nasal MRSA/S.aureus Interp SEE NOTE Vancomycin Trough 5.3 L Respiratory Panel Daniel Adenovirus (Rapid PCR) B.pert (TEM-PCR) B.parapertussis DNA PCR C. pneumoniae DNA (PCR) Coronavirus (PCR) Coronavirus OC43 (PCR) Coronavirus HKU1 (PCR) Coronavirus 229E (PCR) COVID-19 ([facility]) Negative COVID-19 Clin Com See Note Coronavirus NL63 (PCR) Human Metapneumovir PCR Influenza A (RT-PCR) Influenza Type A (PCR) Influenza B (RT-PCR) Influenza Type B (PCR) Ur L.pneumophila Ag M. pneumoniae (PCR) Parainfluenza 1 (PCR) Parainfluenza 2 (PCR) Parainfluenza 3 (PCR) Parainfluenza 4 (PCR) RSV (PCR) RSV RNA Qual (PCR) Entero/Rhino (PCR) SARS-CoV-2 RNA (RT-PCR) SARS-CoV-2 IgG Ab Ur Strep pneumoniae Ag Blood Type Antibody Screen 09/25/20 09/25/20 09/25/20 05:20 05:20 05:20 WBC 13.6 H RBC 2.92 L Hgb 8.9 L Hct 26.7 L MCV 91.4 MCH 30.5 MCHC 33.3 RDW 12.5 Plt Count 153 L MPV 12.1 Immature Gran % (Auto) 0.5 H Neut % (Auto) 93.4 H Lymph % (Auto) 1.9 L [place] % (Auto) 4.1 Eos % (Auto) 0.0 Baso % (Auto) 0.1 Lymph # (Auto) 0.3 L [place] # (Auto) 0.6 Eos # (Auto) 0.0 Baso # (Auto) 0.0 Abs Immat Gran (auto) 0.07 H Absolute Neuts (auto) 12.7 H Absolute Nucleated RBC 0.000 Nucleated RBC % (auto) 0.0 Neutrophils % (Manual) Band Neutrophils % Lymphocytes % (Manual) Monocytes % (Manual) Metamyelocytes % Abs Neuts (Manual) Lymphocytes # (Manual) Monocytes # (Manual) Metamyelocytes # Platelet Estimate Plt Morphology Comment RBC Morphology Hypochromasia Smear Tech's Comments VERIFIED PT INR D-Dimer 358 ABG pH ABG pCO2 ABG pO2 ABG HCO3 ABG O2 Saturation ABG Base Excess VBG pH VBG pCO2 VBG pO2 VBG HCO3 VBG O2 Saturation VBG Base Excess Oxygen Given Sodium 142 Potassium 3.2 L Chloride 112 H Carbon Dioxide 25 Anion Gap 8 L BUN 12 Creatinine 0.55 Estim Creat Clear Calc 95.4 Estimated GFR > 60 POC Glucose Random Glucose 211 H D Fasting Glucose Lactic Acid Lactic Acid Fup @ 2Hr Calcium 7.0 L D Phosphorus 1.3 L Magnesium 2.2 Ferritin 608 H Total Bilirubin Direct Bilirubin AST ALT Alkaline Phosphatase Lactate Dehydrogenase 361 H Total Creatine Kinase 831 H D C-Reactive Protein Total Protein Albumin Lipase Procalcitonin Urine Color Urine Appearance Urine pH Ur Specific [place] Urine Protein Urine Glucose (UA) Urine Ketones Urine Blood Urine Nitrite Ur Leukocyte Esterase Urine RBC Urine WBC Ur Squamous Epith Cells Urine Bacteria Urine Mucus Nasal Screen MRSA (PCR) Nasal S. aureus Screen Nasal MRSA/S.aureus Interp Vancomycin Trough Respiratory Panel Daniel Adenovirus (Rapid PCR) B.pert (TEM-PCR) B.parapertussis DNA PCR C. pneumoniae DNA (PCR) Coronavirus (PCR) Coronavirus OC43 (PCR) Coronavirus HKU1 (PCR) Coronavirus 229E (PCR) COVID-19 ([facility]) COVID-19 Clin Com Coronavirus NL63 (PCR) Human Metapneumovir PCR Influenza A (RT-PCR) Influenza Type A (PCR) Influenza B (RT-PCR) Influenza Type B (PCR) Ur L.pneumophila Ag M. pneumoniae (PCR) Parainfluenza 1 (PCR) Parainfluenza 2 (PCR) Parainfluenza 3 (PCR) Parainfluenza 4 (PCR) RSV (PCR) RSV RNA Qual (PCR) Entero/Rhino (PCR) SARS-CoV-2 RNA (RT-PCR) SARS-CoV-2 IgG Ab Ur Strep pneumoniae Ag Blood Type Antibody Screen 09/25/20 09/25/20 09/26/20 05:20 05:20 01:01 WBC RBC Hgb Hct MCV MCH MCHC RDW Plt Count MPV Immature Gran % (Auto) Neut % (Auto) Lymph % (Auto) [place] % (Auto) Eos % (Auto) Baso % (Auto) Lymph # (Auto) [place] # (Auto) Eos # (Auto) Baso # (Auto) Abs Immat Gran (auto) Absolute Neuts (auto) Absolute Nucleated RBC Nucleated RBC % (auto) Neutrophils % (Manual) Band Neutrophils % Lymphocytes % (Manual) Monocytes % (Manual) Metamyelocytes % Abs Neuts (Manual) Lymphocytes # (Manual) Monocytes # (Manual) Metamyelocytes # Platelet Estimate Plt Morphology Comment RBC Morphology Hypochromasia Smear Tech's Comments PT INR D-Dimer ABG pH ABG pCO2 ABG pO2 ABG HCO3 ABG O2 Saturation ABG Base Excess VBG pH 7.47 H VBG pCO2 35 VBG pO2 46 VBG HCO3 25 VBG O2 Saturation Not Reportable VBG Base Excess 1.7 Oxygen Given Sodium Potassium Chloride Carbon Dioxide Anion Gap BUN Creatinine Estim Creat Clear Calc Estimated GFR POC Glucose Random Glucose Fasting Glucose Lactic Acid Lactic Acid Fup @ 2Hr Calcium Phosphorus Magnesium Ferritin Total Bilirubin Direct Bilirubin AST ALT Alkaline Phosphatase Lactate Dehydrogenase Total Creatine Kinase C-Reactive Protein Total Protein Albumin Lipase Procalcitonin 1.88 Urine Color Urine Appearance Urine pH Ur Specific [place] Urine Protein Urine Glucose (UA) Urine Ketones Urine Blood Urine Nitrite Ur Leukocyte Esterase Urine RBC Urine WBC Ur Squamous Epith Cells Urine Bacteria Urine Mucus Nasal Screen MRSA (PCR) Nasal S. aureus Screen Nasal MRSA/S.aureus Interp Vancomycin Trough 8.9 L Respiratory Panel Daniel Adenovirus (Rapid PCR) B.pert (TEM-PCR) B.parapertussis DNA PCR C. pneumoniae DNA (PCR) Coronavirus (PCR) Coronavirus OC43 (PCR) Coronavirus HKU1 (PCR) Coronavirus 229E (PCR) COVID-19 ([facility]) COVID-19 Clin Com Coronavirus NL63 (PCR) Human Metapneumovir PCR Influenza A (RT-PCR) Influenza Type A (PCR) Influenza B (RT-PCR) Influenza Type B (PCR) Ur L.pneumophila Ag M. pneumoniae (PCR) Parainfluenza 1 (PCR) Parainfluenza 2 (PCR) Parainfluenza 3 (PCR) Parainfluenza 4 (PCR) RSV (PCR) RSV RNA Qual (PCR) Entero/Rhino (PCR) SARS-CoV-2 RNA (RT-PCR) SARS-CoV-2 IgG Ab Ur Strep pneumoniae Ag Blood Type Antibody Screen 09/26/20 09/26/20 09/26/20 04:50 04:50 04:50 WBC 20.5 H RBC 3.06 L Hgb 9.5 L Hct 28.4 L MCV 92.8 MCH 31.0 MCHC 33.5 RDW 13.0 Plt Count 198 D MPV 12.2 Immature Gran % (Auto) 1.5 H Neut % (Auto) 92.1 H Lymph % (Auto) 2.6 L [place] % (Auto) 3.7 Eos % (Auto) 0.0 Baso % (Auto) 0.1 Lymph # (Auto) 0.5 L [place] # (Auto) 0.8 Eos # (Auto) 0.0 Baso # (Auto) 0.0 Abs Immat Gran (auto) 0.30 H Absolute Neuts (auto) 18.9 H Absolute Nucleated RBC 0.000 Nucleated RBC % (auto) 0.0 Neutrophils % (Manual) Band Neutrophils % Lymphocytes % (Manual) Monocytes % (Manual) Metamyelocytes % Abs Neuts (Manual) Lymphocytes # (Manual) Monocytes # (Manual) Metamyelocytes # Platelet Estimate Plt Morphology Comment RBC Morphology Hypochromasia Smear Tech's Comments VERIFIED PT INR D-Dimer ABG pH ABG pCO2 ABG pO2 ABG HCO3 ABG O2 Saturation ABG Base Excess VBG pH 7.40 VBG pCO2 34 VBG pO2 47 VBG HCO3 21 VBG O2 Saturation 84.2 VBG Base Excess -3.4 Oxygen Given Sodium 142 Potassium 4.0 D Chloride 112 H Carbon Dioxide 20 L Anion Gap 14 BUN 16 Creatinine 0.52 Estim Creat Clear Calc 89.1 Estimated GFR > 60 POC Glucose Random Glucose 125 H D Fasting Glucose Lactic Acid Lactic Acid Fup @ 2Hr Calcium 6.6 L Phosphorus 3.0 Magnesium 2.3 Ferritin Total Bilirubin Direct Bilirubin AST ALT Alkaline Phosphatase Lactate Dehydrogenase Total Creatine Kinase C-Reactive Protein Total Protein Albumin Lipase Procalcitonin Urine Color Urine Appearance Urine pH Ur Specific [place] Urine Protein Urine Glucose (UA) Urine Ketones Urine Blood Urine Nitrite Ur Leukocyte Esterase Urine RBC Urine WBC Ur Squamous Epith Cells Urine Bacteria Urine Mucus Nasal Screen MRSA (PCR) Nasal S. aureus Screen Nasal MRSA/S.aureus Interp Vancomycin Trough Respiratory Panel Daniel Adenovirus (Rapid PCR) B.pert (TEM-PCR) B.parapertussis DNA PCR C. pneumoniae DNA (PCR) Coronavirus (PCR) Coronavirus OC43 (PCR) Coronavirus HKU1 (PCR) Coronavirus 229E (PCR) COVID-19 ([facility]) COVID-19 Clin Com Coronavirus NL63 (PCR) Human Metapneumovir PCR Influenza A (RT-PCR) Influenza Type A (PCR) Influenza B (RT-PCR) Influenza Type B (PCR) Ur L.pneumophila Ag M. pneumoniae (PCR) Parainfluenza 1 (PCR) Parainfluenza 2 (PCR) Parainfluenza 3 (PCR) Parainfluenza 4 (PCR) RSV (PCR) RSV RNA Qual (PCR) Entero/Rhino (PCR) SARS-CoV-2 RNA (RT-PCR) SARS-CoV-2 IgG Ab Ur Strep pneumoniae Ag Blood Type Antibody Screen 09/26/20 09/27/20 09/27/20 10:15 05:27 05:27 WBC 11.5 H RBC 2.92 L Hgb 9.0 L Hct 27.3 L MCV 93.5 MCH 30.8 MCHC 33.0 RDW 12.8 Plt Count 185 MPV 12.0 Immature Gran % (Auto) 1.2 H Neut % (Auto) 88.6 H Lymph % (Auto) 3.6 L [place] % (Auto) 6.5 Eos % (Auto) 0.0 Baso % (Auto) 0.1 Lymph # (Auto) 0.4 L [place] # (Auto) 0.8 Eos # (Auto) 0.0 Baso # (Auto) 0.0 Abs Immat Gran (auto) 0.14 H Absolute Neuts (auto) 10.2 H Absolute Nucleated RBC 0.000 Nucleated RBC % (auto) 0.0 Neutrophils % (Manual) Band Neutrophils % Lymphocytes % (Manual) Monocytes % (Manual) Metamyelocytes % Abs Neuts (Manual) Lymphocytes # (Manual) Monocytes # (Manual) Metamyelocytes # Platelet Estimate Plt Morphology Comment RBC Morphology Hypochromasia Smear Tech's Comments VERIFIED PT INR D-Dimer ABG pH 7.44 ABG pCO2 29 L ABG pO2 > 450 H ABG HCO3 19 L ABG O2 Saturation 98.8 ABG Base Excess -4.3 VBG pH VBG pCO2 VBG pO2 VBG HCO3 VBG O2 Saturation VBG Base Excess Oxygen Given 100% Sodium 137 Potassium 3.6 Chloride 108 Carbon Dioxide 18 L Anion Gap 15 BUN 15 Creatinine 0.47 L Estim Creat Clear Calc 109.5 Estimated GFR > 60 POC Glucose Random Glucose 132 H Fasting Glucose Lactic Acid Lactic Acid Fup @ 2Hr Calcium 6.7 L Phosphorus 2.3 L Magnesium 2.5 Ferritin Total Bilirubin Direct Bilirubin AST ALT Alkaline Phosphatase Lactate Dehydrogenase Total Creatine Kinase C-Reactive Protein Total Protein Albumin Lipase Procalcitonin Urine Color Urine Appearance Urine pH Ur Specific [place] Urine Protein Urine Glucose (UA) Urine Ketones Urine Blood Urine Nitrite Ur Leukocyte Esterase Urine RBC Urine WBC Ur Squamous Epith Cells Urine Bacteria Urine Mucus Nasal Screen MRSA (PCR) Nasal S. aureus Screen Nasal MRSA/S.aureus Interp Vancomycin Trough Respiratory Panel Daniel Adenovirus (Rapid PCR) B.pert (TEM-PCR) B.parapertussis DNA PCR C. pneumoniae DNA (PCR) Coronavirus (PCR) Coronavirus OC43 (PCR) Coronavirus HKU1 (PCR) Coronavirus 229E (PCR) COVID-19 ([facility]) COVID-19 Clin Com Coronavirus NL63 (PCR) Human Metapneumovir PCR Influenza A (RT-PCR) Influenza Type A (PCR) Influenza B (RT-PCR) Influenza Type B (PCR) Ur L.pneumophila Ag M. pneumoniae (PCR) Parainfluenza 1 (PCR) Parainfluenza 2 (PCR) Parainfluenza 3 (PCR) Parainfluenza 4 (PCR) RSV (PCR) RSV RNA Qual (PCR) Entero/Rhino (PCR) SARS-CoV-2 RNA (RT-PCR) SARS-CoV-2 IgG Ab Ur Strep pneumoniae Ag Blood Type Antibody Screen 09/27/20 09/27/20 09/28/20 05:27 17:54 05:27 WBC 15.1 H RBC 2.57 L Hgb 8.0 L Hct 24.3 L MCV 94.6 MCH 31.1 MCHC 32.9 RDW 13.0 Plt Count 168 MPV 11.3 Immature Gran % (Auto) 1.1 H Neut % (Auto) 83.3 H Lymph % (Auto) 7.4 L [place] % (Auto) 8.1 Eos % (Auto) 0.0 Baso % (Auto) 0.1 Lymph # (Auto) 1.1 L [place] # (Auto) 1.2 Eos # (Auto) 0.0 Baso # (Auto) 0.0 Abs Immat Gran (auto) 0.17 H Absolute Neuts (auto) 12.6 H Absolute Nucleated RBC 0.020 H Nucleated RBC % (auto) 0.1 Neutrophils % (Manual) Band Neutrophils % Lymphocytes % (Manual) Monocytes % (Manual) Metamyelocytes % Abs Neuts (Manual) Lymphocytes # (Manual) Monocytes # (Manual) Metamyelocytes # Platelet Estimate Plt Morphology Comment RBC Morphology Hypochromasia Smear Tech's Comments PT INR D-Dimer ABG pH ABG pCO2 ABG pO2 ABG HCO3 ABG O2 Saturation ABG Base Excess VBG pH 7.39 VBG pCO2 38 VBG pO2 66 VBG HCO3 22 VBG O2 Saturation 92.2 VBG Base Excess -2.6 Oxygen Given Sodium 138 Potassium 3.8 Chloride 105 Carbon Dioxide 27 Anion Gap 10 L BUN 15 Creatinine 0.56 Estim Creat Clear Calc 91.9 Estimated GFR > 60 POC Glucose Random Glucose 120 H Fasting Glucose Lactic Acid Lactic Acid Fup @ 2Hr Calcium 7.8 L D Phosphorus Magnesium Ferritin Total Bilirubin Direct Bilirubin AST ALT Alkaline Phosphatase Lactate Dehydrogenase Total Creatine Kinase C-Reactive Protein Total Protein Albumin Lipase Procalcitonin Urine Color Urine Appearance Urine pH Ur Specific [place] Urine Protein Urine Glucose (UA) Urine Ketones Urine Blood Urine Nitrite Ur Leukocyte Esterase Urine RBC Urine WBC Ur Squamous Epith Cells Urine Bacteria Urine Mucus Nasal Screen MRSA (PCR) Nasal S. aureus Screen Nasal MRSA/S.aureus Interp Vancomycin Trough Respiratory Panel Daniel Adenovirus (Rapid PCR) B.pert (TEM-PCR) B.parapertussis DNA PCR C. pneumoniae DNA (PCR) Coronavirus (PCR) Coronavirus OC43 (PCR) Coronavirus HKU1 (PCR) Coronavirus 229E (PCR) COVID-19 ([facility]) COVID-19 Clin Com Coronavirus NL63 (PCR) Human Metapneumovir PCR Influenza A (RT-PCR) Influenza Type A (PCR) Influenza B (RT-PCR) Influenza Type B (PCR) Ur L.pneumophila Ag M. pneumoniae (PCR) Parainfluenza 1 (PCR) Parainfluenza 2 (PCR) Parainfluenza 3 (PCR) Parainfluenza 4 (PCR) RSV (PCR) RSV RNA Qual (PCR) Entero/Rhino (PCR) SARS-CoV-2 RNA (RT-PCR) SARS-CoV-2 IgG Ab Ur Strep pneumoniae Ag Blood Type Antibody Screen 09/28/20 09/28/20 09/29/20 05:27 05:27 05:25 WBC 17.2 H RBC 2.72 L Hgb 8.3 L Hct 25.7 L MCV 94.5 MCH 30.5 MCHC 32.3 RDW 13.2 Plt Count 159 L MPV 11.3 Immature Gran % (Auto) 1.0 H Neut % (Auto) 81.6 H Lymph % (Auto) 11.9 L [place] % (Auto) 5.1 Eos % (Auto) 0.3 Baso % (Auto) 0.1 Lymph # (Auto) 2.0 [place] # (Auto) 0.9 Eos # (Auto) 0.1 Baso # (Auto) 0.0 Abs Immat Gran (auto) 0.17 H Absolute Neuts (auto) 14.0 H Absolute Nucleated RBC 0.000 Nucleated RBC % (auto) 0.0 Neutrophils % (Manual) Band Neutrophils % Lymphocytes % (Manual) Monocytes % (Manual) Metamyelocytes % Abs Neuts (Manual) Lymphocytes # (Manual) Monocytes # (Manual) Metamyelocytes # Platelet Estimate Plt Morphology Comment RBC Morphology Hypochromasia Smear Tech's Comments PT INR D-Dimer ABG pH ABG pCO2 ABG pO2 ABG HCO3 ABG O2 Saturation ABG Base Excess VBG pH 7.41 VBG pCO2 51 VBG pO2 42 VBG HCO3 32 VBG O2 Saturation 79.5 VBG Base Excess 6.3 Oxygen Given Sodium 142 Potassium 3.6 Chloride 104 Carbon Dioxide 32 H Anion Gap 10 L BUN 17 H Creatinine 0.62 Estim Creat Clear Calc 83.0 Estimated GFR > 60 POC Glucose Random Glucose 101 Fasting Glucose Lactic Acid Lactic Acid Fup @ 2Hr Calcium 8.3 L D Phosphorus 2.2 L Magnesium 2.2 Ferritin Total Bilirubin 0.5 Direct Bilirubin AST 38 H ALT 171 H Alkaline Phosphatase 40 D Lactate Dehydrogenase Total Creatine Kinase C-Reactive Protein Total Protein 5.6 L Albumin 4.0 Lipase Procalcitonin Urine Color Urine Appearance Urine pH Ur Specific [place] Urine Protein Urine Glucose (UA) Urine Ketones Urine Blood Urine Nitrite Ur Leukocyte Esterase Urine RBC Urine WBC Ur Squamous Epith Cells Urine Bacteria Urine Mucus Nasal Screen MRSA (PCR) Nasal S. aureus Screen Nasal MRSA/S.aureus Interp Vancomycin Trough Respiratory Panel Daniel Adenovirus (Rapid PCR) B.pert (TEM-PCR) B.parapertussis DNA PCR C. pneumoniae DNA (PCR) Coronavirus (PCR) Coronavirus OC43 (PCR) Coronavirus HKU1 (PCR) Coronavirus 229E (PCR) COVID-19 ([facility]) COVID-19 Clin Com Coronavirus NL63 (PCR) Human Metapneumovir PCR Influenza A (RT-PCR) Influenza Type A (PCR) Influenza B (RT-PCR) Influenza Type B (PCR) Ur L.pneumophila Ag M. pneumoniae (PCR) Parainfluenza 1 (PCR) Parainfluenza 2 (PCR) Parainfluenza 3 (PCR) Parainfluenza 4 (PCR) RSV (PCR) RSV RNA Qual (PCR) Entero/Rhino (PCR) SARS-CoV-2 RNA (RT-PCR) SARS-CoV-2 IgG Ab Ur Strep pneumoniae Ag Blood Type Antibody Screen 09/29/20 09/29/20 09/30/20 05:25 05:25 06:10 WBC 13.8 H RBC 2.94 L Hgb 9.0 L Hct 27.4 L MCV 93.2 MCH 30.6 MCHC 32.8 RDW 13.1 Plt Count 163 MPV 11.6 Immature Gran % (Auto) 0.7 H Neut % (Auto) 79.6 H Lymph % (Auto) 10.7 L [place] % (Auto) 6.7 Eos % (Auto) 2.2 Baso % (Auto) 0.1 Lymph # (Auto) 1.5 [place] # (Auto) 0.9 Eos # (Auto) 0.3 Baso # (Auto) 0.0 Abs Immat Gran (auto) 0.10 H Absolute Neuts (auto) 11.0 H Absolute Nucleated RBC 0.000 Nucleated RBC % (auto) 0.0 Neutrophils % (Manual) Band Neutrophils % Lymphocytes % (Manual) Monocytes % (Manual) Metamyelocytes % Abs Neuts (Manual) Lymphocytes # (Manual) Monocytes # (Manual) Metamyelocytes # Platelet Estimate Plt Morphology Comment RBC Morphology Hypochromasia Smear Tech's Comments PT INR D-Dimer ABG pH ABG pCO2 ABG pO2 ABG HCO3 ABG O2 Saturation ABG Base Excess VBG pH 7.42 VBG pCO2 39 VBG pO2 40 VBG HCO3 25 VBG O2 Saturation 76.8 VBG Base Excess 0.3 Oxygen Given Sodium 139 Potassium 3.7 Chloride 104 Carbon Dioxide 26 Anion Gap 13 BUN 19 H Creatinine 0.51 Estim Creat Clear Calc 113.8 Estimated GFR > 60 POC Glucose Random Glucose 69 Fasting Glucose Lactic Acid Lactic Acid Fup @ 2Hr Calcium 7.7 L D Phosphorus 3.5 Magnesium 2.0 Ferritin Total Bilirubin Direct Bilirubin AST ALT Alkaline Phosphatase Lactate Dehydrogenase Total Creatine Kinase C-Reactive Protein Total Protein Albumin 3.2 L Lipase Procalcitonin Urine Color Urine Appearance Urine pH Ur Specific [place] Urine Protein Urine Glucose (UA) Urine Ketones Urine Blood Urine Nitrite Ur Leukocyte Esterase Urine RBC Urine WBC Ur Squamous Epith Cells Urine Bacteria Urine Mucus Nasal Screen MRSA (PCR) Nasal S. aureus Screen Nasal MRSA/S.aureus Interp Vancomycin Trough Respiratory Panel Daniel Adenovirus (Rapid PCR) B.pert (TEM-PCR) B.parapertussis DNA PCR C. pneumoniae DNA (PCR) Coronavirus (PCR) Coronavirus OC43 (PCR) Coronavirus HKU1 (PCR) Coronavirus 229E (PCR) COVID-19 ([facility]) COVID-19 Clin Com Coronavirus NL63 (PCR) Human Metapneumovir PCR Influenza A (RT-PCR) Influenza Type A (PCR) Influenza B (RT-PCR) Influenza Type B (PCR) Ur L.pneumophila Ag M. pneumoniae (PCR) Parainfluenza 1 (PCR) Parainfluenza 2 (PCR) Parainfluenza 3 (PCR) Parainfluenza 4 (PCR) RSV (PCR) RSV RNA Qual (PCR) Entero/Rhino (PCR) SARS-CoV-2 RNA (RT-PCR) SARS-CoV-2 IgG Ab Ur Strep pneumoniae Ag Blood Type Antibody Screen 09/30/20 09/30/20 10/01/20 06:10 06:10 05:54 WBC 19.5 H RBC 2.83 L Hgb 8.6 L Hct 27.2 L MCV 96.1 MCH 30.4 MCHC 31.6 RDW 13.4 Plt Count 174 MPV 11.6 Immature Gran % (Auto) 0.7 H Neut % (Auto) 84.8 H Lymph % (Auto) 6.3 L [place] % (Auto) 5.8 Eos % (Auto) 2.3 Baso % (Auto) 0.1 Lymph # (Auto) 1.2 [place] # (Auto) 1.1 Eos # (Auto) 0.4 Baso # (Auto) 0.0 Abs Immat Gran (auto) 0.14 H Absolute Neuts (auto) 16.5 H Absolute Nucleated RBC 0.000 Nucleated RBC % (auto) 0.0 Neutrophils % (Manual) Band Neutrophils % Lymphocytes % (Manual) Monocytes % (Manual) Metamyelocytes % Abs Neuts (Manual) Lymphocytes # (Manual) Monocytes # (Manual) Metamyelocytes # Platelet Estimate Plt Morphology Comment RBC Morphology Hypochromasia Smear Tech's Comments PT INR D-Dimer ABG pH ABG pCO2 ABG pO2 ABG HCO3 ABG O2 Saturation ABG Base Excess VBG pH 7.42 VBG pCO2 44 VBG pO2 42 VBG HCO3 28 VBG O2 Saturation 76.2 VBG Base Excess 3.1 Oxygen Given Sodium 140 Potassium 3.8 Chloride 104 Carbon Dioxide 30 H Anion Gap 10 L BUN 12 Creatinine 0.54 Estim Creat Clear Calc 110.3 Estimated GFR > 60 POC Glucose Random Glucose 119 H D Fasting Glucose Lactic Acid Lactic Acid Fup @ 2Hr Calcium 7.7 L Phosphorus 2.7 Magnesium 2.0 Ferritin Total Bilirubin Direct Bilirubin AST ALT Alkaline Phosphatase Lactate Dehydrogenase Total Creatine Kinase C-Reactive Protein Total Protein Albumin 3.0 L Lipase Procalcitonin Urine Color Urine Appearance Urine pH Ur Specific [place] Urine Protein Urine Glucose (UA) Urine Ketones Urine Blood Urine Nitrite Ur Leukocyte Esterase Urine RBC Urine WBC Ur Squamous Epith Cells Urine Bacteria Urine Mucus Nasal Screen MRSA (PCR) Nasal S. aureus Screen Nasal MRSA/S.aureus Interp Vancomycin Trough Respiratory Panel Daniel Adenovirus (Rapid PCR) B.pert (TEM-PCR) B.parapertussis DNA PCR C. pneumoniae DNA (PCR) Coronavirus (PCR) Coronavirus OC43 (PCR) Coronavirus HKU1 (PCR) Coronavirus 229E (PCR) COVID-19 ([facility]) COVID-19 Clin Com Coronavirus NL63 (PCR) Human Metapneumovir PCR Influenza A (RT-PCR) Influenza Type A (PCR) Influenza B (RT-PCR) Influenza Type B (PCR) Ur L.pneumophila Ag M. pneumoniae (PCR) Parainfluenza 1 (PCR) Parainfluenza 2 (PCR) Parainfluenza 3 (PCR) Parainfluenza 4 (PCR) RSV (PCR) RSV RNA Qual (PCR) Entero/Rhino (PCR) SARS-CoV-2 RNA (RT-PCR) SARS-CoV-2 IgG Ab Ur Strep pneumoniae Ag Blood Type Antibody Screen 10/01/20 10/01/20 10/02/20 05:54 05:54 05:18 WBC RBC Hgb Hct MCV MCH MCHC RDW Plt Count MPV Immature Gran % (Auto) Neut % (Auto) Lymph % (Auto) [place] % (Auto) Eos % (Auto) Baso % (Auto) Lymph # (Auto) [place] # (Auto) Eos # (Auto) Baso # (Auto) Abs Immat Gran (auto) Absolute Neuts (auto) Absolute Nucleated RBC Nucleated RBC % (auto) Neutrophils % (Manual) Band Neutrophils % Lymphocytes % (Manual) Monocytes % (Manual) Metamyelocytes % Abs Neuts (Manual) Lymphocytes # (Manual) Monocytes # (Manual) Metamyelocytes # Platelet Estimate Plt Morphology Comment RBC Morphology Hypochromasia Smear Tech's Comments PT INR D-Dimer ABG pH ABG pCO2 ABG pO2 ABG HCO3 ABG O2 Saturation ABG Base Excess VBG pH 7.38 7.40 VBG pCO2 50 50 VBG pO2 50 48 VBG HCO3 29 30 VBG O2 Saturation 83.9 84.2 VBG Base Excess 2.8 4.4 Oxygen Given Sodium 140 Potassium 3.6 Chloride 104 Carbon Dioxide 30 H Anion Gap 10 L BUN 12 Creatinine 0.53 Estim Creat Clear Calc 112.3 Estimated GFR > 60 POC Glucose Random Glucose 75 D Fasting Glucose Lactic Acid Lactic Acid Fup @ 2Hr Calcium 7.4 L Phosphorus 2.9 Magnesium 1.9 Ferritin Total Bilirubin Direct Bilirubin AST ALT Alkaline Phosphatase Lactate Dehydrogenase Total Creatine Kinase C-Reactive Protein Total Protein Albumin 2.8 L Lipase Procalcitonin Urine Color Urine Appearance Urine pH Ur Specific [place] Urine Protein Urine Glucose (UA) Urine Ketones Urine Blood Urine Nitrite Ur Leukocyte Esterase Urine RBC Urine WBC Ur Squamous Epith Cells Urine Bacteria Urine Mucus Nasal Screen MRSA (PCR) Nasal S. aureus Screen Nasal MRSA/S.aureus Interp Vancomycin Trough Respiratory Panel Daniel Adenovirus (Rapid PCR) B.pert (TEM-PCR) B.parapertussis DNA PCR C. pneumoniae DNA (PCR) Coronavirus (PCR) Coronavirus OC43 (PCR) Coronavirus HKU1 (PCR) Coronavirus 229E (PCR) COVID-19 ([facility]) COVID-19 Clin Com Coronavirus NL63 (PCR) Human Metapneumovir PCR Influenza A (RT-PCR) Influenza Type A (PCR) Influenza B (RT-PCR) Influenza Type B (PCR) Ur L.pneumophila Ag M. pneumoniae (PCR) Parainfluenza 1 (PCR) Parainfluenza 2 (PCR) Parainfluenza 3 (PCR) Parainfluenza 4 (PCR) RSV (PCR) RSV RNA Qual (PCR) Entero/Rhino (PCR) SARS-CoV-2 RNA (RT-PCR) SARS-CoV-2 IgG Ab Ur Strep pneumoniae Ag Blood Type Antibody Screen 10/02/20 10/02/20 10/03/20 05:19 05:19 05:17 WBC 18.2 H 17.4 H RBC 2.87 L 2.81 L Hgb 8.7 L 8.4 L Hct 27.8 L 27.0 L MCV 96.9 96.1 MCH 30.3 29.9 MCHC 31.3 31.1 RDW 13.2 12.8 Plt Count 187 191 MPV 11.7 10.9 Immature Gran % (Auto) 0.4 0.6 H Neut % (Auto) 83.9 H 81.0 H Lymph % (Auto) 4.5 L 7.0 L [place] % (Auto) 8.4 9.6 Eos % (Auto) 2.6 1.7 Baso % (Auto) 0.2 0.1 Lymph # (Auto) 0.8 L 1.2 [place] # (Auto) 1.5 H 1.7 H Eos # (Auto) 0.5 H 0.3 Baso # (Auto) 0.0 0.0 Abs Immat Gran (auto) 0.08 H 0.10 H Absolute Neuts (auto) 15.2 H 14.1 H Absolute Nucleated RBC 0.000 0.000 Nucleated RBC % (auto) 0.0 0.0 Neutrophils % (Manual) Band Neutrophils % Lymphocytes % (Manual) Monocytes % (Manual) Metamyelocytes % Abs Neuts (Manual) Lymphocytes # (Manual) Monocytes # (Manual) Metamyelocytes # Platelet Estimate Plt Morphology Comment RBC Morphology Hypochromasia Smear Tech's Comments VERIFIED VERIFIED PT INR D-Dimer ABG pH ABG pCO2 ABG pO2 ABG HCO3 ABG O2 Saturation ABG Base Excess VBG pH VBG pCO2 VBG pO2 VBG HCO3 VBG O2 Saturation VBG Base Excess Oxygen Given Sodium 141 Potassium 3.8 Chloride 105 Carbon Dioxide 29 Anion Gap 11 L BUN 9 Creatinine 0.49 L Estim Creat Clear Calc 114.5 Estimated GFR > 60 POC Glucose Random Glucose 78 Fasting Glucose Lactic Acid Lactic Acid Fup @ 2Hr Calcium 7.1 L Phosphorus 2.4 L Magnesium 1.9 Ferritin Total Bilirubin Direct Bilirubin AST ALT Alkaline Phosphatase Lactate Dehydrogenase Total Creatine Kinase C-Reactive Protein Total Protein Albumin 2.7 L Lipase Procalcitonin Urine Color Urine Appearance Urine pH Ur Specific [place] Urine Protein Urine Glucose (UA) Urine Ketones Urine Blood Urine Nitrite Ur Leukocyte Esterase Urine RBC Urine WBC Ur Squamous Epith Cells Urine Bacteria Urine Mucus Nasal Screen MRSA (PCR) Nasal S. aureus Screen Nasal MRSA/S.aureus Interp Vancomycin Trough Respiratory Panel Daniel Adenovirus (Rapid PCR) B.pert (TEM-PCR) B.parapertussis DNA PCR C. pneumoniae DNA (PCR) Coronavirus (PCR) Coronavirus OC43 (PCR) Coronavirus HKU1 (PCR) Coronavirus 229E (PCR) COVID-19 ([facility]) COVID-19 Clin Com Coronavirus NL63 (PCR) Human Metapneumovir PCR Influenza A (RT-PCR) Influenza Type A (PCR) Influenza B (RT-PCR) Influenza Type B (PCR) Ur L.pneumophila Ag M. pneumoniae (PCR) Parainfluenza 1 (PCR) Parainfluenza 2 (PCR) Parainfluenza 3 (PCR) Parainfluenza 4 (PCR) RSV (PCR) RSV RNA Qual (PCR) Entero/Rhino (PCR) SARS-CoV-2 RNA (RT-PCR) SARS-CoV-2 IgG Ab Ur Strep pneumoniae Ag Blood Type Antibody Screen 10/03/20 10/03/20 10/04/20 05:17 05:17 05:34 WBC 7.7 RBC 2.48 L Hgb 7.6 L Hct 23.4 L MCV 94.4 MCH 30.6 MCHC 32.5 RDW 13.1 Plt Count 173 MPV 10.7 Immature Gran % (Auto) 0.5 H Neut % (Auto) 77.8 H Lymph % (Auto) 8.5 L [place] % (Auto) 10.3 Eos % (Auto) 2.8 Baso % (Auto) 0.1 Lymph # (Auto) 0.7 L [place] # (Auto) 0.8 Eos # (Auto) 0.2 Baso # (Auto) 0.0 Abs Immat Gran (auto) 0.04 H Absolute Neuts (auto) 6.0 Absolute Nucleated RBC 0.000 Nucleated RBC % (auto) 0.0 Neutrophils % (Manual) Band Neutrophils % Lymphocytes % (Manual) Monocytes % (Manual) Metamyelocytes % Abs Neuts (Manual) Lymphocytes # (Manual) Monocytes # (Manual) Metamyelocytes # Platelet Estimate Plt Morphology Comment RBC Morphology Hypochromasia Smear Tech's Comments VERIFIED PT INR D-Dimer ABG pH ABG pCO2 ABG pO2 ABG HCO3 ABG O2 Saturation ABG Base Excess VBG pH 7.36 VBG pCO2 48 VBG pO2 55 VBG HCO3 27 VBG O2 Saturation 87.3 VBG Base Excess 0.9 Oxygen Given Sodium 139 Potassium 3.9 Chloride 103 Carbon Dioxide 26 Anion Gap 14 BUN 9 Creatinine 0.49 L Estim Creat Clear Calc 113.1 Estimated GFR > 60 POC Glucose Random Glucose 56 L* Fasting Glucose Lactic Acid Lactic Acid Fup @ 2Hr Calcium 7.1 L Phosphorus 2.0 L Magnesium 1.9 Ferritin Total Bilirubin Direct Bilirubin AST ALT Alkaline Phosphatase Lactate Dehydrogenase Total Creatine Kinase C-Reactive Protein Total Protein Albumin 2.6 L Lipase Procalcitonin Urine Color Urine Appearance Urine pH Ur Specific [place] Urine Protein Urine Glucose (UA) Urine Ketones Urine Blood Urine Nitrite Ur Leukocyte Esterase Urine RBC Urine WBC Ur Squamous Epith Cells Urine Bacteria Urine Mucus Nasal Screen MRSA (PCR) Nasal S. aureus Screen Nasal MRSA/S.aureus Interp Vancomycin Trough Respiratory Panel Daniel Adenovirus (Rapid PCR) B.pert (TEM-PCR) B.parapertussis DNA PCR C. pneumoniae DNA (PCR) Coronavirus (PCR) Coronavirus OC43 (PCR) Coronavirus HKU1 (PCR) Coronavirus 229E (PCR) COVID-19 ([facility]) COVID-19 Clin Com Coronavirus NL63 (PCR) Human Metapneumovir PCR Influenza A (RT-PCR) Influenza Type A (PCR) Influenza B (RT-PCR) Influenza Type B (PCR) Ur L.pneumophila Ag M. pneumoniae (PCR) Parainfluenza 1 (PCR) Parainfluenza 2 (PCR) Parainfluenza 3 (PCR) Parainfluenza 4 (PCR) RSV (PCR) RSV RNA Qual (PCR) Entero/Rhino (PCR) SARS-CoV-2 RNA (RT-PCR) SARS-CoV-2 IgG Ab Ur Strep pneumoniae Ag Blood Type Antibody Screen 10/04/20 10/04/20 10/04/20 05:34 05:34 13:12 WBC RBC Hgb Hct MCV MCH MCHC RDW Plt Count MPV Immature Gran % (Auto) Neut % (Auto) Lymph % (Auto) [place] % (Auto) Eos % (Auto) Baso % (Auto) Lymph # (Auto) [place] # (Auto) Eos # (Auto) Baso # (Auto) Abs Immat Gran (auto) Absolute Neuts (auto) Absolute Nucleated RBC Nucleated RBC % (auto) Neutrophils % (Manual) Band Neutrophils % Lymphocytes % (Manual) Monocytes % (Manual) Metamyelocytes % Abs Neuts (Manual) Lymphocytes # (Manual) Monocytes # (Manual) Metamyelocytes # Platelet Estimate Plt Morphology Comment RBC Morphology Hypochromasia Smear Tech's Comments PT INR D-Dimer ABG pH ABG pCO2 ABG pO2 ABG HCO3 ABG O2 Saturation ABG Base Excess VBG pH 7.43 VBG pCO2 38 VBG pO2 42 VBG HCO3 25 VBG O2 Saturation 77.5 VBG Base Excess 0.4 Oxygen Given Sodium 142 Potassium 3.4 Chloride 106 Carbon Dioxide 28 Anion Gap 11 L BUN 4 L D Creatinine 0.53 Estim Creat Clear Calc 108.5 Estimated GFR > 60 POC Glucose Random Glucose 114 D Fasting Glucose Lactic Acid Lactic Acid Fup @ 2Hr Calcium 7.9 L D Phosphorus 2.5 L Magnesium 2.0 Ferritin Total Bilirubin Direct Bilirubin AST ALT Alkaline Phosphatase Lactate Dehydrogenase Total Creatine Kinase C-Reactive Protein Total Protein Albumin 3.8 D Lipase Procalcitonin Urine Color Urine Appearance Urine pH Ur Specific [place] Urine Protein Urine Glucose (UA) Urine Ketones Urine Blood Urine Nitrite Ur Leukocyte Esterase Urine RBC Urine WBC Ur Squamous Epith Cells Urine Bacteria Urine Mucus Nasal Screen MRSA (PCR) Nasal S. aureus Screen Nasal MRSA/S.aureus Interp Vancomycin Trough Respiratory Panel Daniel Adenovirus (Rapid PCR) B.pert (TEM-PCR) B.parapertussis DNA PCR C. pneumoniae DNA (PCR) Coronavirus (PCR) Coronavirus OC43 (PCR) Coronavirus HKU1 (PCR) Coronavirus 229E (PCR) COVID-19 (KATE) COVID-19 Clin Com Coronavirus NL63 (PCR) Human Metapneumovir PCR Influenza A (RT-PCR) Influenza Type A (PCR) Influenza B (RT-PCR) Influenza Type B (PCR) Ur L.pneumophila Ag M. pneumoniae (PCR) Parainfluenza 1 (PCR) Parainfluenza 2 (PCR) Parainfluenza 3 (PCR) Parainfluenza 4 (PCR) RSV (PCR) RSV RNA Qual (PCR) Entero/Rhino (PCR) SARS-CoV-2 RNA (RT-PCR) SARS-CoV-2 IgG Ab Negative Ur Strep pneumoniae Ag Blood Type Antibody Screen 10/04/20 10/05/20 10/05/20 14:13 05:42 05:42 WBC 7.0 RBC 2.51 L Hgb 7.5 L Hct 23.3 L MCV 92.8 MCH 29.9 MCHC 32.2 RDW 13.0 Plt Count 218 D MPV 10.7 Immature Gran % (Auto) 1.0 H Neut % (Auto) 64.2 Lymph % (Auto) 14.6 L [place] % (Auto) 17.5 H Eos % (Auto) 2.6 Baso % (Auto) 0.1 Lymph # (Auto) 1.0 L [place] # (Auto) 1.2 Eos # (Auto) 0.2 Baso # (Auto) 0.0 Abs Immat Gran (auto) 0.07 H Absolute Neuts (auto) 4.5 Absolute Nucleated RBC 0.000 Nucleated RBC % (auto) 0.0 Neutrophils % (Manual) Band Neutrophils % Lymphocytes % (Manual) Monocytes % (Manual) Metamyelocytes % Abs Neuts (Manual) Lymphocytes # (Manual) Monocytes # (Manual) Metamyelocytes # Platelet Estimate Plt Morphology Comment RBC Morphology Hypochromasia Smear Tech's Comments PT INR D-Dimer ABG pH ABG pCO2 ABG pO2 ABG HCO3 ABG O2 Saturation ABG Base Excess VBG pH VBG pCO2 VBG pO2 VBG HCO3 VBG O2 Saturation VBG Base Excess Oxygen Given Sodium 142 Potassium 2.9 L Chloride 110 H Carbon Dioxide 24 Anion Gap 11 L BUN 3 L Creatinine 0.51 Estim Creat Clear Calc 109.6 Estimated GFR > 60 POC Glucose Random Glucose 103 Fasting Glucose Lactic Acid Lactic Acid Fup @ 2Hr Calcium 7.7 L Phosphorus 2.7 Magnesium 1.8 Ferritin Total Bilirubin Direct Bilirubin AST ALT Alkaline Phosphatase Lactate Dehydrogenase Total Creatine Kinase C-Reactive Protein Total Protein Albumin Lipase Procalcitonin Urine Color Urine Appearance Urine pH Ur Specific [place] Urine Protein Urine Glucose (UA) Urine Ketones Urine Blood Urine Nitrite Ur Leukocyte Esterase Urine RBC Urine WBC Ur Squamous Epith Cells Urine Bacteria Urine Mucus Nasal Screen MRSA (PCR) Nasal S. aureus Screen Nasal MRSA/S.aureus Interp Vancomycin Trough Respiratory Panel Daniel Adenovirus (Rapid PCR) B.pert (TEM-PCR) B.parapertussis DNA PCR C. pneumoniae DNA (PCR) Coronavirus (PCR) NEGATIVE Coronavirus OC43 (PCR) Coronavirus HKU1 (PCR) Coronavirus 229E (PCR) COVID-19 (KATE) COVID-19 Clin Com Coronavirus NL63 (PCR) Human Metapneumovir PCR Influenza A (RT-PCR) Influenza Type A (PCR) NEGATIVE Influenza B (RT-PCR) Influenza Type B (PCR) NEGATIVE Ur L.pneumophila Ag M. pneumoniae (PCR) Parainfluenza 1 (PCR) Parainfluenza 2 (PCR) Parainfluenza 3 (PCR) Parainfluenza 4 (PCR) RSV (PCR) RSV RNA Qual (PCR) NEGATIVE Entero/Rhino (PCR) SARS-CoV-2 RNA (RT-PCR) SARS-CoV-2 IgG Ab Ur Strep pneumoniae Ag Blood Type Antibody Screen 10/05/20 10/05/20 10/05/20 05:42 16:40 16:40 WBC RBC Hgb Hct MCV MCH MCHC RDW Plt Count MPV Immature Gran % (Auto) Neut % (Auto) Lymph % (Auto) [place] % (Auto) Eos % (Auto) Baso % (Auto) Lymph # (Auto) [place] # (Auto) Eos # (Auto) Baso # (Auto) Abs Immat Gran (auto) Absolute Neuts (auto) Absolute Nucleated RBC Nucleated RBC % (auto) Neutrophils % (Manual) Band Neutrophils % Lymphocytes % (Manual) Monocytes % (Manual) Metamyelocytes % Abs Neuts (Manual) Lymphocytes # (Manual) Monocytes # (Manual) Metamyelocytes # Platelet Estimate Plt Morphology Comment RBC Morphology Hypochromasia Smear Tech's Comments PT 13.7 H INR 1.2 H D-Dimer ABG pH ABG pCO2 ABG pO2 ABG HCO3 ABG O2 Saturation ABG Base Excess VBG pH 7.45 H VBG pCO2 31 VBG pO2 51 VBG HCO3 21 VBG O2 Saturation 87.0 VBG Base Excess -2.2 Oxygen Given Sodium Potassium Chloride Carbon Dioxide Anion Gap BUN Creatinine Estim Creat Clear Calc Estimated GFR POC Glucose Random Glucose Fasting Glucose Lactic Acid Lactic Acid Fup @ 2Hr Calcium Phosphorus Magnesium Ferritin Total Bilirubin Direct Bilirubin AST ALT Alkaline Phosphatase Lactate Dehydrogenase Total Creatine Kinase C-Reactive Protein Total Protein Albumin Lipase Procalcitonin Urine Color Urine Appearance Urine pH Ur Specific [place] Urine Protein Urine Glucose (UA) Urine Ketones Urine Blood Urine Nitrite Ur Leukocyte Esterase Urine RBC Urine WBC Ur Squamous Epith Cells Urine Bacteria Urine Mucus Nasal Screen MRSA (PCR) Nasal S. aureus Screen Nasal MRSA/S.aureus Interp Vancomycin Trough Respiratory Panel Daniel Adenovirus (Rapid PCR) B.pert (TEM-PCR) B.parapertussis DNA PCR C. pneumoniae DNA (PCR) Coronavirus (PCR) Coronavirus OC43 (PCR) Coronavirus HKU1 (PCR) Coronavirus 229E (PCR) COVID-19 (KATE) COVID-19 Clin Com Coronavirus NL63 (PCR) Human Metapneumovir PCR Influenza A (RT-PCR) Influenza Type A (PCR) Influenza B (RT-PCR) Influenza Type B (PCR) Ur L.pneumophila Ag M. pneumoniae (PCR) Parainfluenza 1 (PCR) Parainfluenza 2 (PCR) Parainfluenza 3 (PCR) Parainfluenza 4 (PCR) RSV (PCR) RSV RNA Qual (PCR) Entero/Rhino (PCR) SARS-CoV-2 RNA (RT-PCR) SARS-CoV-2 IgG Ab Ur Strep pneumoniae Ag Blood Type O Positive Antibody Screen NEGATIVE 10/06/20 10/06/20 10/06/20 05:59 05:59 05:59 WBC 7.6 RBC 2.90 L Hgb 8.7 L Hct 26.9 L MCV 92.8 MCH 30.0 MCHC 32.3 RDW 13.1 Plt Count 271 MPV 11.4 Immature Gran % (Auto) 1.6 H Neut % (Auto) 63.7 Lymph % (Auto) 15.6 L [place] % (Auto) 15.7 H Eos % (Auto) 3.0 Baso % (Auto) 0.4 Lymph # (Auto) 1.2 [place] # (Auto) 1.2 Eos # (Auto) 0.2 Baso # (Auto) 0.0 Abs Immat Gran (auto) 0.12 H Absolute Neuts (auto) 4.8 Absolute Nucleated RBC 0.000 Nucleated RBC % (auto) 0.0 Neutrophils % (Manual) Band Neutrophils % Lymphocytes % (Manual) Monocytes % (Manual) Metamyelocytes % Abs Neuts (Manual) Lymphocytes # (Manual) Monocytes # (Manual) Metamyelocytes # Platelet Estimate Plt Morphology Comment RBC Morphology Hypochromasia Smear Tech's Comments PT INR D-Dimer ABG pH ABG pCO2 ABG pO2 ABG HCO3 ABG O2 Saturation ABG Base Excess VBG pH 7.38 VBG pCO2 43 VBG pO2 47 VBG HCO3 25 VBG O2 Saturation 80.6 VBG Base Excess -0.1 Oxygen Given Sodium 139 Potassium 4.0 D Chloride 107 Carbon Dioxide 24 Anion Gap 12 BUN 2 L Creatinine 0.49 L Estim Creat Clear Calc 109.2 Estimated GFR > 60 POC Glucose Random Glucose Fasting Glucose 109 H Lactic Acid Lactic Acid Fup @ 2Hr Calcium 8.0 L Phosphorus Magnesium Ferritin Total Bilirubin Direct Bilirubin AST ALT Alkaline Phosphatase Lactate Dehydrogenase Total Creatine Kinase C-Reactive Protein Total Protein Albumin Lipase Procalcitonin Urine Color Urine Appearance Urine pH Ur Specific [place] Urine Protein Urine Glucose (UA) Urine Ketones Urine Blood Urine Nitrite Ur Leukocyte Esterase Urine RBC Urine WBC Ur Squamous Epith Cells Urine Bacteria Urine Mucus Nasal Screen MRSA (PCR) Nasal S. aureus Screen Nasal MRSA/S.aureus Interp Vancomycin Trough Respiratory Panel Daniel Adenovirus (Rapid PCR) B.pert (TEM-PCR) B.parapertussis DNA PCR C. pneumoniae DNA (PCR) Coronavirus (PCR) Coronavirus OC43 (PCR) Coronavirus HKU1 (PCR) Coronavirus 229E (PCR) COVID-19 (KATE) COVID-19 Clin Com Coronavirus NL63 (PCR) Human Metapneumovir PCR Influenza A (RT-PCR) Influenza Type A (PCR) Influenza B (RT-PCR) Influenza Type B (PCR) Ur L.pneumophila Ag M. pneumoniae (PCR) Parainfluenza 1 (PCR) Parainfluenza 2 (PCR) Parainfluenza 3 (PCR) Parainfluenza 4 (PCR) RSV (PCR) RSV RNA Qual (PCR) Entero/Rhino (PCR) SARS-CoV-2 RNA (RT-PCR) SARS-CoV-2 IgG Ab Ur Strep pneumoniae Ag Blood Type Antibody Screen 10/06/20 10/07/20 10/07/20 17:58 06:06 06:06 WBC 10.4 RBC 2.83 L Hgb 8.4 L Hct 26.3 L MCV 92.9 MCH 29.7 MCHC 31.9 RDW 12.9 Plt Count 377 D MPV 11.2 Immature Gran % (Auto) 1.2 H Neut % (Auto) 78.6 H Lymph % (Auto) 12.8 L [place] % (Auto) 7.0 Eos % (Auto) 0.1 Baso % (Auto) 0.3 Lymph # (Auto) 1.3 [place] # (Auto) 0.7 Eos # (Auto) 0.0 Baso # (Auto) 0.0 Abs Immat Gran (auto) 0.13 H Absolute Neuts (auto) 8.2 Absolute Nucleated RBC 0.000 Nucleated RBC % (auto) 0.0 Neutrophils % (Manual) Band Neutrophils % Lymphocytes % (Manual) Monocytes % (Manual) Metamyelocytes % Abs Neuts (Manual) Lymphocytes # (Manual) Monocytes # (Manual) Metamyelocytes # Platelet Estimate Plt Morphology Comment RBC Morphology Hypochromasia Smear Tech's Comments PT INR D-Dimer ABG pH ABG pCO2 ABG pO2 ABG HCO3 ABG O2 Saturation ABG Base Excess VBG pH VBG pCO2 VBG pO2 VBG HCO3 VBG O2 Saturation VBG Base Excess Oxygen Given Sodium 141 Potassium 4.3 Chloride 106 Carbon Dioxide 28 Anion Gap 11 L BUN 6 L D Creatinine 0.49 L Estim Creat Clear Calc 109.2 Estimated GFR > 60 POC Glucose 110 Random Glucose 97 Fasting Glucose Lactic Acid Lactic Acid Fup @ 2Hr Calcium 8.2 L Phosphorus Magnesium Ferritin Total Bilirubin 0.5 Direct Bilirubin AST 12 D ALT 40 Alkaline Phosphatase 67 D Lactate Dehydrogenase Total Creatine Kinase C-Reactive Protein Total Protein 5.3 L Albumin 3.2 L Lipase Procalcitonin Urine Color Urine Appearance Urine pH Ur Specific [place] Urine Protein Urine Glucose (UA) Urine Ketones Urine Blood Urine Nitrite Ur Leukocyte Esterase Urine RBC Urine WBC Ur Squamous Epith Cells Urine Bacteria Urine Mucus Nasal Screen MRSA (PCR) Nasal S. aureus Screen Nasal MRSA/S.aureus Interp Vancomycin Trough Respiratory Panel Daniel Adenovirus (Rapid PCR) B.pert (TEM-PCR) B.parapertussis DNA PCR C. pneumoniae DNA (PCR) Coronavirus (PCR) Coronavirus OC43 (PCR) Coronavirus HKU1 (PCR) Coronavirus 229E (PCR) COVID-19 (KATE) COVID-19 Clin Com Coronavirus NL63 (PCR) Human Metapneumovir PCR Influenza A (RT-PCR) Influenza Type A (PCR) Influenza B (RT-PCR) Influenza Type B (PCR) Ur L.pneumophila Ag M. pneumoniae (PCR) Parainfluenza 1 (PCR) Parainfluenza 2 (PCR) Parainfluenza 3 (PCR) Parainfluenza 4 (PCR) RSV (PCR) RSV RNA Qual (PCR) Entero/Rhino (PCR) SARS-CoV-2 RNA (RT-PCR) SARS-CoV-2 IgG Ab Ur Strep pneumoniae Ag Blood Type Antibody Screen 10/07/20 10/08/20 10/08/20 06:06 05:15 05:15 WBC 11.2 H RBC 2.84 L Hgb 8.5 L Hct 26.6 L MCV 93.7 MCH 29.9 MCHC 32.0 RDW 13.1 Plt Count 392 MPV 11.1 Immature Gran % (Auto) 1.2 H Neut % (Auto) 74.7 H Lymph % (Auto) 12.5 L [place] % (Auto) 10.0 Eos % (Auto) 1.3 Baso % (Auto) 0.3 Lymph # (Auto) 1.4 [place] # (Auto) 1.1 Eos # (Auto) 0.1 Baso # (Auto) 0.0 Abs Immat Gran (auto) 0.13 H Absolute Neuts (auto) 8.4 H Absolute Nucleated RBC 0.000 Nucleated RBC % (auto) 0.0 Neutrophils % (Manual) Band Neutrophils % Lymphocytes % (Manual) Monocytes % (Manual) Metamyelocytes % Abs Neuts (Manual) Lymphocytes # (Manual) Monocytes # (Manual) Metamyelocytes # Platelet Estimate Plt Morphology Comment RBC Morphology Hypochromasia Smear Tech's Comments PT INR D-Dimer ABG pH ABG pCO2 ABG pO2 ABG HCO3 ABG O2 Saturation ABG Base Excess VBG pH 7.38 VBG pCO2 46 VBG pO2 45 VBG HCO3 26 VBG O2 Saturation 78.3 VBG Base Excess 0.8 Oxygen Given Sodium 141 Potassium 3.4 D Chloride 104 Carbon Dioxide 28 Anion Gap 12 BUN 6 L Creatinine 0.55 Estim Creat Clear Calc 96.7 Estimated GFR > 60 POC Glucose Random Glucose 87 Fasting Glucose Lactic Acid Lactic Acid Fup @ 2Hr Calcium 8.1 L Phosphorus Magnesium Ferritin Total Bilirubin 0.4 Direct Bilirubin AST 19 D ALT 33 Alkaline Phosphatase 73 Lactate Dehydrogenase Total Creatine Kinase C-Reactive Protein Total Protein 5.7 L Albumin 3.3 L Lipase Procalcitonin Urine Color Urine Appearance Urine pH Ur Specific [place] Urine Protein Urine Glucose (UA) Urine Ketones Urine Blood Urine Nitrite Ur Leukocyte Esterase Urine RBC Urine WBC Ur Squamous Epith Cells Urine Bacteria Urine Mucus Nasal Screen MRSA (PCR) Nasal S. aureus Screen Nasal MRSA/S.aureus Interp Vancomycin Trough Respiratory Panel Daniel Adenovirus (Rapid PCR) B.pert (TEM-PCR) B.parapertussis DNA PCR C. pneumoniae DNA (PCR) Coronavirus (PCR) Coronavirus OC43 (PCR) Coronavirus HKU1 (PCR) Coronavirus 229E (PCR) COVID-19 (KATE) COVID-19 Clin Com Coronavirus NL63 (PCR) Human Metapneumovir PCR Influenza A (RT-PCR) Influenza Type A (PCR) Influenza B (RT-PCR) Influenza Type B (PCR) Ur L.pneumophila Ag M. pneumoniae (PCR) Parainfluenza 1 (PCR) Parainfluenza 2 (PCR) Parainfluenza 3 (PCR) Parainfluenza 4 (PCR) RSV (PCR) RSV RNA Qual (PCR) Entero/Rhino (PCR) SARS-CoV-2 RNA (RT-PCR) SARS-CoV-2 IgG Ab Ur Strep pneumoniae Ag Blood Type Antibody Screen 10/08/20 05:15 WBC RBC Hgb Hct MCV MCH MCHC RDW Plt Count MPV Immature Gran % (Auto) Neut % (Auto) Lymph % (Auto) [place] % (Auto) Eos % (Auto) Baso % (Auto) Lymph # (Auto) [place] # (Auto) Eos # (Auto) Baso # (Auto) Abs Immat Gran (auto) Absolute Neuts (auto) Absolute Nucleated RBC Nucleated RBC % (auto) Neutrophils % (Manual) Band Neutrophils % Lymphocytes % (Manual) Monocytes % (Manual) Metamyelocytes % Abs Neuts (Manual) Lymphocytes # (Manual) Monocytes # (Manual) Metamyelocytes # Platelet Estimate Plt Morphology Comment RBC Morphology Hypochromasia Smear Tech's Comments PT INR D-Dimer ABG pH ABG pCO2 ABG pO2 ABG HCO3 ABG O2 Saturation ABG Base Excess VBG pH 7.47 H VBG pCO2 38 VBG pO2 39 VBG HCO3 27 VBG O2 Saturation 73.9 VBG Base Excess 3.1 Oxygen Given Sodium Potassium Chloride Carbon Dioxide Anion Gap BUN Creatinine Estim Creat Clear Calc Estimated GFR POC Glucose Random Glucose Fasting Glucose Lactic Acid Lactic Acid Fup @ 2Hr Calcium Phosphorus Magnesium Ferritin Total Bilirubin Direct Bilirubin AST ALT Alkaline Phosphatase Lactate Dehydrogenase Total Creatine Kinase C-Reactive Protein Total Protein Albumin Lipase Procalcitonin Urine Color Urine Appearance Urine pH Ur Specific [place] Urine Protein Urine Glucose (UA) Urine Ketones Urine Blood Urine Nitrite Ur Leukocyte Esterase Urine RBC Urine WBC Ur Squamous Epith Cells Urine Bacteria Urine Mucus Nasal Screen MRSA (PCR) Nasal S. aureus Screen Nasal MRSA/S.aureus Interp Vancomycin Trough Respiratory Panel Daniel Adenovirus (Rapid PCR) B.pert (TEM-PCR) B.parapertussis DNA PCR C. pneumoniae DNA (PCR) Coronavirus (PCR) Coronavirus OC43 (PCR) Coronavirus HKU1 (PCR) Coronavirus 229E (PCR) COVID-19 (KATE) COVID-19 Clin Com Coronavirus NL63 (PCR) Human Metapneumovir PCR Influenza A (RT-PCR) Influenza Type A (PCR) Influenza B (RT-PCR) Influenza Type B (PCR) Ur L.pneumophila Ag M. pneumoniae (PCR) Parainfluenza 1 (PCR) Parainfluenza 2 (PCR) Parainfluenza 3 (PCR) Parainfluenza 4 (PCR) RSV (PCR) RSV RNA Qual (PCR) Entero/Rhino (PCR) SARS-CoV-2 RNA (RT-PCR) SARS-CoV-2 IgG Ab Ur Strep pneumoniae Ag Blood Type Antibody Screen Narrative Narrative: S/p tracheostomy. Pressure support ventilation. Airway Heart: RRR Lungs: CTAB Assessment and Plan Assessment Anesthesia Assessment: Anesthesia Plan Discussed and Chart Reviewed Final Anesthetic Review NPO: Yes ASA Class: IV Final Preanesthetic Review: No Changes in Pt Med Stat, Meds/Allgs Chart Reviewed, Consent Obtained/Reviewed and Anes Risks/Benef Reviewed Patient Risk: High Procedure Risk: Intermediate Anesthetic Plan Anesthetic Plan: GA Disposition: Inp. Admit - ICU
--- NOTE | 2020-10-08 10:16 | MHC.CLN ---
F/U PEG TO BE PLACED TODAY RECOMMEND OSMOLITE AT MAX GOAL RATE 40CC/HR WITH 240CC FREE WATER FLUSHES Q SHIFT TO PROVIDE 1440KCALS (30KCALS/KG), 60G PROTEIN (1.3G/KG), 1451CC TOTAL WATER FROM FORMULA AND FLUSHES (32CC/KG) START FEEDING AT 20CC/HR AND INCREASE BY 10CC Q 4 HOURS UNTIL MAX GOAL OF 40CC/HR IS REACHED MONITOR TOLERANCE, RESIDUALS AND LYTES
[2020-10-08] MEDS: propofoL 1,000 MG/100 ML VIAL 9.87 MG IVCONT (10:19)
--- NOTE | 2020-10-08 10:30 | MHC.SHP ---
Pre-Procedural Eval Section B Chief Complaint: acute hypoxemic respiratory failure with bilateral Allergies: Allergies Allergy/AdvReac Type Severity Reaction Status Date / Time No Known Allergies Allergy Verified 09/22/20 22:17 Plan Patient has been examined and remains a candidate for the planned procedure
--- NOTE | 2020-10-08 11:56 | P.BOP_ITS ---
Brief Operative Note Date of Service: 10/08/20 Pre-op diagnosis: Aspiration pneumonia Post-op diagnosis: same Procedure: PEG tube placement Implants: PEG tube Surgeon: Kevin Hester MD Anesthesia: other (general, trach in place) Logistics System Engineer: Marianna Sanders Estimated blood loss (mL): 1 Pathology: none sent Condition: stable (unchanged) Disposition: ICU
--- NOTE | 2020-10-08 12:50 | PC.NURSE ---
1201 Pt returned from OR,successful PEG placement. (See OR note)Initial HR 68, pt HR quickly returned to baseline of 122. Fent decreased to 50, propofol decreased to 20. Pt hypotensive upon return 95/[address] rene alerted no action taken. Dr rene requested pt propofol to be turned off at 1231. antibiotic given in OR. ordereds to hold off on tube feeds until 10/09/20. pt VS returned to pt baseline pt awake at 1258
--- NOTE | 2020-10-08 13:11 | PM.EVENT ---
Event Note Date of Service: 10/08/20 Event Note: pt underwent uneventful PEG tube placement earlier transillumination at just below subcostal margin in the epigastric area was clearly seen external bolster at around level 1.5 cm pain mgt remains on ventilator sister Sharri updated over the phone ok to start PEG feeds tomorrow - low rate, increase as tolerated to target calories dw Intensivisit
[2020-10-08] MEDS: LORazepam 2 MG/ML VIAL 1 MG IVPUSH (14:52)
[2020-10-08] MEDS: fentaNYL citrate/NS 1,000 MCG/100 ML PLAST..BAG 5 MCG IVCONT (15:04)
--- NOTE | 2020-10-08 16:14 | MHC.CM.PN ---
Patient remains in ICU. Trach placed 10/06. Peg placed 10/08. Clinical updates sent to LTAC's still following. Continue to monitor for d/c needs.
--- NOTE | 2020-10-08 16:29 | PM.CCPN ---
Subjective Subjective Date of Service: 10/08/20 Interval History: Mr. Thurman was admitted to ICU on 09/23/2020 with acute resp failure presumed 2? aspiration pneumonia. The patient is a 60-year-old gentleman who is resident of a detention with history of developmental delay, cerebral palsy, spastic quadriplegia, seizure disorder, dysphagia, wheelchair-bound. By report the patient is nonverbal and lies in the position. HCP is his sister Sharri, who is very involved. The patient was sent to the ED from his detention late on 09/22/2020 because of fever, vomiting, and cough. The patient was found to have a left lower lobe pneumonia. The patient was intubated in the ED because of impending respiratory failure, presumed secondary to aspiration. COVID and viral PCRs were negative. The patient also had an abdominal CT which was negative except for a large stool burden within the rectum. The patient was admitted to the ICU and treated with Zosyn and vancomycin. He was also found to have a UTI. Bedside echo showed normal LV and RV size and function, with no significant valvular disease. Ultimately the patient was treated with a 7 day course of doxycycline for community-acquired pneumonia. The patient was ultimately extubated 09/28/2020, but required re-intubation later that day because of another aspiration event. Was then given a course of Unasyn. Tapering ventilator support since then. The patient underwent percutaneous tracheostomy by Dr. Herrera on Oct 06. Following that, PEG was attempted, but accord to Dr. Herrera, they were unable to transilluminate thru the stomach wall, so the procedure was abandoned for safety reasons. Subseq abdominal CT with oral contrast to check the anatomy of his stomach showed the region of the gastric antrum most accessible anteriorly, while the anterolateral stomach was not close to the abdominal wall. The patient underwent percutaneous gastrostomy by Dr. Bledsoe as in the or today. He indicated that the stomach was able to be transilluminated anteriorly right under the rib. On exam today postoperatively, off propofol, still on fentanyl 50 ug, the patient seemed to be very unhappy and mentally uncomfortable. We gave him Ativan 1mg which seemed to settle him significantly, without undue sedation. Ad seems to be looking around, but he?s not tracking very much. He is noncomunicative. See Vital Signs below. On the ventilator on PSV 8/21%/+5, his RR is low-mid 20?s, Vt 480cc, Ve 11L, SpO2 97%. Afebrile since 10/04. Anicteric, no JVD. The abdomen is benign. Trace-1+ central edema. LABORATORY DATA: As below. MICRO: Blood cultures drawn 10/04 negative so far. Urine culture 10/04 negative so far. Sputum Gram stain 10/04 showing 4+polys, with 2+ Gram-negative rods. Cultures growing 4+ sensitive enterobacter. IMPRESSION: 1. Underlying mental retardation, cerebral palsy, spastic quadriplegia, and seizure disorder. 2. History of dysphagia, now recovering from recurrent aspiration pneumonia. 3. Aspiration pneumonia. 4. Acute respiratory failure 2? above. s/p tracheostomy and now s/p PEG today. 5. ID: Afebrile, with borderline white count, no clear evidence of pneumonia. Bec of his sputum cx, I gave him a five day course of ceftriaxone. Today is day#2. 6. Neuro: Underlying seizure disorder, continue valproic acid. 7. Nutrition: Start tube feeds. 8. Laxation. Started him on enteral lactulose yesterday and has had excellent stool output. Spoke with his sister at some length today about how best to keep him mentally comfortable. Best would be to have someone come in from his detention, but that may not be possible in these days of COVID. Critical care time (include d/w Dr. Hester and OR/anesth staff): 60+ min. Physical Exam Vital Signs: Vital Signs: Last Vital Signs Temp 100.5 F H 10/08/20 15:00 Pulse 128 H 10/08/20 15:00 Resp 25 H 10/08/20 15:00 BP 126/79 10/08/20 15:00 Pulse Ox 95 10/08/20 15:00 Body Mass Index 17.6 Objective Data Labs CBC & Chem 7: 10/08/20 05:15 10/08/20 05:15 Labs: Laboratory Results - last 24 hr 10/08/20 10/08/20 10/08/20 05:15 05:15 05:15 WBC 11.2 H RBC 2.84 L Hgb 8.5 L Hct 26.6 L MCV 93.7 MCH 29.9 MCHC 32.0 RDW 13.1 Plt Count 392 MPV 11.1 Immature Gran % (Auto) 1.2 H Neut % (Auto) 74.7 H Lymph % (Auto) 12.5 L [place] % (Auto) 10.0 Eos % (Auto) 1.3 Baso % (Auto) 0.3 Lymph # (Auto) 1.4 [place] # (Auto) 1.1 Eos # (Auto) 0.1 Baso # (Auto) 0.0 Abs Immat Gran (auto) 0.13 H Absolute Neuts (auto) 8.4 H Absolute Nucleated RBC 0.000 Nucleated RBC % (auto) 0.0 VBG pH 7.47 H VBG pCO2 38 VBG pO2 39 VBG HCO3 27 VBG O2 Saturation 73.9 VBG Base Excess 3.1 Sodium 141 Potassium 3.4 D Chloride 104 Carbon Dioxide 28 Anion Gap 12 BUN 6 L Creatinine 0.55 Estim Creat Clear Calc 96.7 Estimated GFR > 60 Random Glucose 87 Calcium 8.1 L Total Bilirubin 0.4 AST 19 D ALT 33 Alkaline Phosphatase 73 Total Protein 5.7 L Albumin 3.3 L Microbiology Microbiology Results: Microbiology 10/04/20 06:56 Sputum - Suctioned Gram Stain - Final 10/04/20 06:56 Sputum - Suctioned Sputum Culture - Final Enterobacter cloacae complex 10/04/20 21:00 Blood - Central Line Blood Culture - Preliminary No growth after 48 hours. 10/04/20 20:53 Blood - Central Line Blood Culture - Preliminary No growth after 48 hours. 10/04/20 06:56 Urine [place] Urine Culture - Final No growth. 09/26/20 15:00 Sputum - Suctioned Gram Stain - Final 09/26/20 15:00 Sputum - Suctioned Sputum Culture - Final Enterobacter cloacae complex 09/22/20 21:39 Blood - Venous Blood Culture - Final No growth after 5 days. 09/22/20 21:38 Blood - Venous Blood Culture - Final No growth after 5 days. 09/22/20 22:07 Urine clean catch - Clean Catch Midstream Urine Culture - Final Escherichia coli Progress Note: A&P Time Spent With Patient Time: Total time spent is greater than 50% in coordination of care (as documented) at patient's floor/unit and/or counseling patient: Total time spent with greater than 50% in coordination of care (as documented) at patient's floor/unit and/or counseling patient:: 0 Critical Care Time Critical Care Time (minutes): 60
[2020-10-08] MEDS: HYDROmorphone HCl 2 MG/ML VIAL IVPUSH (16:41)
[2020-10-08] MEDS: Potassium Chloride Packet 20 MEQ PACKET 40 MEQ G-TUBE (17:13)
--- NOTE | 2020-10-08 17:29 | PC.NURSE ---
Pt propofol DC'd this afternoon. pt awake appears agitated with increased HR and BP Dr Lam aware and ordered ativan x1 and Q6 HRS. Dr Lam also ordered dilaudid for pt. pt appears less restless after meds but HR remains at HIS baseline of 125. Dr Mcbride aware. Pt has had three large soft to watery brown stool today. Dr Lam allowing use of new PEG tube for meds. Trach had dried blood to site, pt grimaced with discomfort of cleaning. Fentanyl at set rate of 50mcg/hr to decrease to 25mcg/hr 10/09
--- NOTE | 2020-10-08 19:52 | OP_ITS ---
SURGEON: Kevin Hester MD INDICATIONS: The patient is a 60-year-old male, admitted for aspiration pneumonia. He had cerebral palsy and was in respiratory failure, requiring intubation and eventual tracheostomy tube placement. PEG tube was attempted at the time of tracheostomy a different provider, but transillumination on the abdominal wall could not be visualized, so the procedurewas deferred. I was consulted and CAT scan had been ordered to define its anatomy. Otherwise, there was no obvious abnormality in the anatomy of the stomach and there appeared to be a good window for access on the epigastric area into the anterior abdominal wall for a PEG tube placement. I therefore explained to the healthcare proxy, Sharri Thurman, who is his sister, that we will re-attempt PEG tube placement with possible conversion to open G-tube placement. I explained to her the technique of this procedure as well as the risks, benefits, and alternatives and she had given consent. PREOPERATIVE DIAGNOSIS: POSTOPERATIVE DIAGNOSIS: PROCEDURE PERFORMED: Percutaneous endoscopic gastrostomy tube placement. ESTIMATED BLOOD LOSS: COMPLICATIONS: ANESTHESIA: ASSISTANTS: Marianna Sanders PA-C. SPECIMENS: PREOPERATIVE DIAGNOSES: Cerebral palsy with aspiration pneumonia and respiratory failure. POSTOPERATIVE DIAGNOSES: Cerebral palsy with aspiration pneumonia and respiratory failure. DESCRIPTION OF PROCEDURE: The patient was brought to the operating room from the intensive care unit. He was placed supine. He was on the ventilator and anesthesia care was being given by the anesthesiologist. The patient was placed in a reverse Trendelenburg position. A bite block was in position. A surgical time-out was done. I proceeded to gently advance the scope into the oropharynx with the bite block. The vocal cords were visualized. The esophageal slit was seen posterior to this. The OG tube was also seen and we followed this all the way through the entire length of the esophagus into the stomach lumen. The rugae of the stomach wall were visualized. The OG tube was removed. I proceeded to distend the stomach with insufflation. I proceeded to identify the transillumination into the abdominal wall. Initially, we had some difficulty visualization of the transillumination, but with the lights turned down lower, we were able to actually easily see this and the epigastric area. By pressing on the epigastric area where the transillumination was noted optimally, we were able to see the indentation on the anterior stomach wall easily. This area on the epigastric area just below the subcostal margin was therefore chosen for access. This was prepped and draped and infiltrated with lidocaine 1%. A small stab incision was then made and we proceeded to insert a small needle and this was easily seen in the stomach lumen. We changed this needle to a large bore needle with an outercannula. This was inserted through the incision into the lumen of the stomach. The needle was removed and the plastic cannula was kept in place. We inserted the guidewire into the cannula and this was grasped with a snare from the endoscope. We pulled this out through the oral cavity. This guidewire was looped into the PEG tube. The wire was then pulled back from the abdominal wall, dragging the PEG tube with it into the oral cavity and all the way through the esophagus and into the stomach. We pulled this until this was snug. We proceeded to apply the external bolster. We reinserted the scope all the way to the stomach. Photographic documentation of the internal bolster was done and this appeared to be in good position. There was note of good hemostasis. The scope was then withdrawn completely again. The external bolster was in position as well just on the skin. The patient tolerated the procedure well. There were no complications noted. There was minimal blood loss. The patient was transferred back to the intensive care unit with stable vital signs. MD JAMES Gracia/MIN / [id number] [facility]
[2020-10-08] MEDS: cefTRIAXone sodium 1 GM in 0.9 % Sodium Chloride 50 ML IV (20:53)
[2020-10-08] MEDS: Metoprolol Tartrate 25 MG TABLET G-TUBE (20:54)
[2020-10-09] VITALS (15 sets, daily range): BP systolic 96–126; BP diastolic 51–82; PULSE 93–109; RESP 14–30; TEMP 36.9–37.8; O2SAT 91–99; BMI 17.4
[2020-10-09] MEDS: fentaNYL citrate/NS 1,000 MCG/100 ML PLAST..BAG 5 MCG IVCONT (05:53)
[2020-10-09 06:34] LABS: MANUAL DIFF FLAG NO
[2020-10-09 06:55] LABS: HCO3 VBG 28 mmol/L; PCO2 VBG 38 mmhg; PO2 VBG 45 mmhg; pH VBG 7.48 (7.32-7.43)
[2020-10-09 06:56] LABS: Oxygen Saturation VBG 83.6 %
[2020-10-09 07:05] LABS: Alanine Aminotransferase 24 U/L (0-40); Albumin Level 3.2 g/dL (3.5-5.0); Alkaline Phosphatase 67 U/L (39-117); Anion Gap 14 (12-20); Aspartate Amino Transferase 21 U/L (5-37); Bilirubin Total 0.7 mg/dL (0.0-1.0); Blood Urea Nitrogen 5 mg/dL (9-16); Calcium 7.9 mg/dL (8.4-10.2); Carbon Dioxide 25 mmol/L (22-29); Chloride 102 mmol/L (96-108); Creatinine Clr Calc Pharmacy 102.7; Estimated Glomerular Filt Rate > 60; Glucose Random 73 mg/dL (60-115); Potassium 3.6 mmol/l (3.3-5.1); Sodium 137 mmol/L (135-145); Total Protein 5.5 g/dL (6.5-8.0)
[2020-10-09] MEDS: Famotidine 20 MG TABLET G-TUBE (07:31)
[2020-10-09] MEDS: Metoprolol Tartrate 25 MG TABLET G-TUBE ×2 (07:31→21:13)
[2020-10-09] MEDS: 0.9 % Sodium Chloride Flush 3 ML SYRINGE IVFLUSH ×2 (07:31→16:00)
[2020-10-09] MEDS: fentaNYL citrate/NS 1,000 MCG/100 ML PLAST..BAG 2.5 MCG IVCONT (07:34)
[2020-10-09 07:44] LABS: Basophils Absolute Auto 0.1 X10*3/uL (0.0-0.2); Basophils Percent Auto 0.6 % (0-2); Eosinophils Percent Auto 0.3 % (0-4); Hematocrit 24.5 % (42-52); Hemoglobin 7.8 g/dl (14.0-18.0); Imm Gran Abs Auto 0.14 X10*3/uL (0.00-0.03); Imm Gran Pct Auto 1.2 % (0.0-0.4); Lymphocytes Absolute Auto 1.9 X10*3/uL (1.2-4.9); Lymphocytes Percent Auto 16.8 % (20-40); Mean Corpuscular HGB Conc 31.8 g/dl (31.0-36.0); Mean Corpuscular Hemoglobin 29.9 pg (27.0-33.0); Mean Corpuscular Volume 93.9 fL (80-98); Mean Platelet Volume 11.1 fL (9.4-12.4); Monocytes Absolute Auto 1.3 X10*3/uL (0.1-1.2); Monocytes Percent Auto 11.6 % (2-11); Neutrophils Percent Auto 69.5 % (45-73); Platelet Count 478 X10*3/uL (160-400); Red Blood Count 2.61 X10*6/uL (4.60-5.80); Red Cell Distribution Width 13.2 % (11.0-16.0); White Blood Count 11.5 X10*3/uL (4.8-10.8)
[2020-10-09] MEDS: HYDROmorphone HCl 1 MG/ML SYRINGE 0.5 MG IVPUSH (10:22)
--- NOTE | 2020-10-09 10:30 | P.PNCC_ITS ---
Subjective Subjective Date of Service: 10/09/20 Interval History: Mr. Thurman was admitted to ICU on 09/23/2020 with acute resp failure presumed 2? aspiration pneumonia. The patient is a 60-year-old gentleman who is resident of a senior care with history of developmental delay, cerebral palsy, spastic quadriplegia, seizure disorder, dysphagia, wheelchair-bound. By report the patient is nonverbal and lies in the position. HCP is his sister Sharri, who is very involved. The patient was sent to the ED from his senior care late on 09/22/2020 because of fever, vomiting, and cough. The patient was found to have a left lower lobe pneumonia. The patient was intubated in the ED because of impending respiratory failure, presumed secondary to aspiration. COVID and viral PCRs were negative. The patient also had an abdominal CT which was negative except for a large stool burden within the rectum. The patient was admitted to the ICU and treated with Zosyn and vancomycin. He was also found to have a UTI. Bedside echo showed normal LV and RV size and function, with no significant valvular disease. Ultimately the patient was treated with a 7 day course of doxycycline for community-acquired pneumonia. The patient was ultimately extubated 09/28/2020, but required re-intubation later that day because of another aspiration event. Was then given a course of Unasyn. Tapering ventilator support since then. The patient underwent percutaneous tracheostomy by Dr. Herrera on Oct 06. Following that, PEG was attempted, but accord to Dr. Herrera, they were unable to transilluminate thru the stomach wall, so the procedure was abandoned for safety reasons. Subseq abdominal CT with oral contrast to check the anatomy of his stomach showed the region of the gastric antrum most accessible anteriorly, while the anterolateral stomach was not close to the abdominal wall. The patient underwent percutaneous gastrostomy by Dr. Hester in the OR yesterday. The stomach was able to be transilluminated anteriorly right under the rib. Postoperatively yesterday off propofol, while still on fentanyl 50 ug, the patient seemed to be very unhappy and mentally uncomfortable. We gave him Ativan 1mg which seemed to settle him very nicely, without undue sedation. He went onto PSV with no problem. This morning we put him on trach collar. He?s breathing easy on 28% FiO2, w RR 22, Sat 99%. On room air trach collar, he?s still breathing easy, w SpO2 96%, See Vital Signs below. Ad seems to be looking around, and he seems to look at me and track, but not consistently. He is noncomunicative and noninteractive to commands. Afebrile since 10/04 except for one low grade temp yesterday postoperatively. Anicteric, no JVD. Chest is clear with low pitched BS. The abdomen is benign. No signif edema. LABORATORY DATA: As below. MICRO: Blood and urine cultures from 10/04 negative. Sputum Gram stain 10/04 showed 4+polys, with 2+ Gram-negative rods. Cultures growing 4+ pansensitive enterobacter. IMPRESSION: 1. Underlying mental retardation, cerebral palsy, spastic quadriplegia, and seizure disorder. 2. History of dysphagia, now recovering from recurrent aspiration pneumonia. 3. Aspiration pneumonia. 4. Acute respiratory failure 2? above. s/p tracheostomy and PEG today. Now on room air trach collar. 5. ID: Afebrile, with borderline white count, no clear evidence of pneumonia. Bec of his sputum cx, I gave him a five day course of ceftriaxone. Today is day#3. 6. Neuro: Underlying seizure disorder, continue valproic acid. 7. Nutrition: Starting tube feeds this morning. 8. Laxation. Started him on enteral lactulose yesterday and has had excellent stool output. It goes without say that it?s very difficult to tell when Ad is uncomfortable or unhappy. Spoke with his sister yesterday about how best to keep him mentally comfortable. Best would be to have someone come in from his senior care (he knows them the best), but that may not be possible in these days of COVID. He looks much more comfortable today. It appears to me that for now and maybe the next few days, ? mg Dilaudid or ? mg Ativan prn would do well for him when he starts looking around and frowning. St[place] [facility] Will sign out to hospitalists. Time: . Physical Exam Vital Signs: Vital Signs: Last Vital Signs Temp 98.4 F 10/09/20 08:00 Pulse 93 10/09/20 09:56 Resp 30 H 10/09/20 09:56 BP 114/65 10/09/20 09:56 Pulse Ox 99 10/09/20 09:56 Body Mass Index 17.4 Objective Data Labs CBC & Chem 7: 10/09/20 05:45 10/09/20 05:45 Labs: Laboratory Results - last 24 hr 10/09/20 10/09/20 10/09/20 05:45 05:45 05:45 WBC 11.5 H RBC 2.61 L Hgb 7.8 L Hct 24.5 L MCV 93.9 MCH 29.9 MCHC 31.8 RDW 13.2 Plt Count 478 H MPV 11.1 Immature Gran % (Auto) 1.2 H Neut % (Auto) 69.5 Lymph % (Auto) 16.8 L [place] % (Auto) 11.6 H Eos % (Auto) 0.3 Baso % (Auto) 0.6 Lymph # (Auto) 1.9 [place] # (Auto) 1.3 H Eos # (Auto) 0.0 Baso # (Auto) 0.1 Abs Immat Gran (auto) 0.14 H Absolute Neuts (auto) 8.0 Absolute Nucleated RBC 0.000 Nucleated RBC % (auto) 0.0 VBG pH 7.48 H VBG pCO2 38 VBG pO2 45 VBG HCO3 28 VBG O2 Saturation 83.6 VBG Base Excess 4.0 Sodium 137 Potassium 3.6 Chloride 102 Carbon Dioxide 25 Anion Gap 14 BUN 5 L Creatinine 0.51 Estim Creat Clear Calc 102.7 Estimated GFR > 60 Random Glucose 73 Calcium 7.9 L Total Bilirubin 0.7 AST 21 ALT 24 Alkaline Phosphatase 67 Total Protein 5.5 L Albumin 3.2 L Microbiology Microbiology Results: Microbiology 10/04/20 06:56 Sputum - Suctioned Gram Stain - Final 10/04/20 06:56 Sputum - Suctioned Sputum Culture - Final Enterobacter cloacae complex 10/04/20 21:00 Blood - Central Line Blood Culture - Preliminary No growth after 48 hours. 10/04/20 20:53 Blood - Central Line Blood Culture - Preliminary No growth after 48 hours. 10/04/20 06:56 Urine [place] Urine Culture - Final No growth. 09/26/20 15:00 Sputum - Suctioned Gram Stain - Final 09/26/20 15:00 Sputum - Suctioned Sputum Culture - Final Enterobacter cloacae complex 11/18/20 21:39 Blood - Venous Blood Culture - Final No growth after 5 days. 09/22/20 21:38 Blood - Venous Blood Culture - Final No growth after 5 days. 09/22/20 22:07 Urine clean catch - Clean Catch Midstream Urine Culture - Final Escherichia coli Progress Note: A&P Time Spent With Patient Time: Total time spent is greater than 50% in coordination of care (as documented) at patient's floor/unit and/or counseling patient: Total time spent with greater than 50% in coordination of care (as documented) at patient's floor/unit and/or counseling patient:: 0
[2020-10-09] MEDS: Heparin Sodium,Porcine 5,000 UNIT/ML VIAL 5000 UNIT SUBCUT ×2 (14:36→21:13)
--- NOTE | 2020-10-09 16:19 | HO.POSTANES ---
Post Anesthesia Evaluation Post Anesthesia Evaluation Vital Signs: Vital Signs Temp Pulse Resp BP Pulse Ox 10/09/20 11:00 102 H 21 H 126/60 10/09/20 09:56 93 30 H 114/65 99 10/09/20 09:00 95 24 H 126/63 95 10/09/20 08:00 98.4 F 109 H 14 126/82 99 10/09/20 07:31 106 H 125/70 10/09/20 07:00 102 H 22 H 123/65 98 10/09/20 05:00 102 H 22 H 103/60 97 Anesthesia: General Mental Status: Awake Pain Control: Satisfactory Nausea/Vomiting: None Hydration: Adequate Anesthesia-Related Issues: No Anes. Related Issues
[2020-10-09] MEDS: cefTRIAXone sodium 1 GM in 0.9 % Sodium Chloride 50 ML IV (21:07)
[2020-10-10] VITALS (7 sets, daily range): BP systolic 100–121; BP diastolic 60–81; PULSE 80–96; RESP 18–20; TEMP 36–38.6; O2SAT 94–100
[2020-10-10] MEDS: 0.9 % Sodium Chloride Flush 3 ML SYRINGE IVFLUSH ×3 (00:45→16:14)
[2020-10-10] MEDS: Acetaminophen Supp 650 MG SUPP.RECT PR (02:51)
[2020-10-10] MEDS: Heparin Sodium,Porcine 5,000 UNIT/ML VIAL 5000 UNIT SUBCUT ×2 (06:00→13:19)
[2020-10-10] MEDS: Famotidine 20 MG TABLET G-TUBE (08:53)
[2020-10-10] MEDS: Metoprolol Tartrate 25 MG TABLET G-TUBE ×2 (08:53→20:26)
--- NOTE | 2020-10-10 17:48 | HO.PM.IMPN ---
Subjective Subjective Date of Service: 10/10/20 Interval History: 60-year-old gentleman with underlying history of developmental delay, cerebral palsy, spastic quadriplegia, seizure disorder, dysphagia, wheelchair-bound, skilled nursing resident who presented to the ED 09/23/2020 with fever, vomitting. He was initially admitted to the hospital service for aspiration PNA. Covid was negative. While still in ED, he decompensated and was intubated and admitted to the ICU. He was treated with antibiotics including Zosyn, Vancomycin and Doxycycline. He was extubated on 09/28 and within 6 hours aspirated and was reintubated and treated with Unasyn for aspiration yet again. He subsequently failed extubation and underwent Tracheostomy by Dr. Herrera on 10/06 and a PEG by Dr. Hester on 10/08. He was taken off vent on 10/09 and then transfer to hospitalist service on 10/09. I sawa and examined the patient's who is ontracted, non communicative and didn't seem to be any apprent discomfort. He was noted to have a temp of 101. He seems to be tolerating his tube feed Review of Systems Review of Systems: Yes Unobtainable due to mental status Physical Exam Vital Signs: Vital Signs: Last Vital Signs Temp 96.8 F 10/10/20 15:02 Pulse 91 10/10/20 15:02 Resp 19 10/10/20 15:02 BP 100/81 10/10/20 15:02 Pulse Ox 100 10/10/20 15:02 Body Mass Index 17.4 General: he lying in position on his left side, not in distress, non communicative Resp: rhonchi CVS: S1,S2,RRR GI: +BS, NT, no distention, peg site clean Skin: No rash Neuro: difficult to assess, no notable new finding Psych: flat Objective Data Current Medications Generic Name Dose Route Start Last Admin Trade Name Freq PRN Reason Stop Dose Admin Acetaminophen 650 mg 09/30/20 20:05 09/30/20 20:17 Acetaminophen Oral Liquid 650 Mg/20.3 Ml Solution OG-TUBE 650 mg Q6H PRN Administration Pain and Fever Acetaminophen 650 mg 10/02/20 21:14 10/10/20 02:51 Acetaminophen Supp 650 Mg Supp.Rect SD 650 mg Q6H PRN Administration Fever Bisacodyl 10 mg 09/28/20 14:02 10/02/20 10:04 Bisacodyl 10 Mg Supp.Rect SD 10 mg DAILY PRN Administration Constipation Chlorhexidine Gluconate 15 ml 09/28/20 21:00 10/10/20 13:20 Chlorhexidine Gluc Oral Rinse 15 Ml Mouthwash BUCCAL Not Given TID ELIA Famotidine 20 mg 10/09/20 09:00 10/10/20 08:53 Famotidine 20 Mg Tablet G-TUBE 20 mg DAILY ELIA Administration Heparin Sodium (Porcine) 5,000 unit 10/07/20 14:00 10/10/20 13:19 Heparin Sodium,Porcine 5,000 Unit/Ml Vial SUBCUT 5,000 unit Q8H ELIA Administration Hydromorphone HCl 0.5 mg 10/09/20 10:18 10/09/20 10:22 Hydromorphone Hcl 1 Mg/Ml Syringe IVPUSH 0.5 mg Q1H PRN Administration WOB or distress Hydromorphone HCl 1 mg 10/09/20 10:18 Hydromorphone Hcl 2 Mg/Ml Vial IVPUSH Q1H PRN severe WOB or severe distress Ceftriaxone Sodium 1 gm/ 50 mls @ 100 mls/hr 10/07/20 21:00 10/09/20 23:39 Sodium Chloride IV 10/14/20 20:59 Infused Q24H [facility] Infusion Lactulose 30 gm 10/08/20 16:32 Lactulose 20 Gm/30 Ml Solution G-TUBE BID PRN constipation Lorazepam 1 mg 10/09/20 10:19 Lorazepam 2 Mg/Ml Vial IVPUSH Q8H PRN anxiety/restlessness Metoprolol Tartrate 25 mg 10/08/20 21:00 10/10/20 08:53 Metoprolol Tartrate 25 Mg Tablet G-TUBE 25 mg BID ELIA Administration Protocol Ondansetron HCl 4 mg 09/28/20 15:49 09/28/20 15:58 Ondansetron Hcl 4 Mg/2 Ml Vial IVPUSH 4 mg Q6H PRN Administration Nausea Sodium Chloride 3 ml 09/23/20 16:00 10/10/20 16:14 0.9 % Sodium Chloride Flush 3 Ml Syringe IVFLUSH 3 ml QSHIFT ELIA Administration Valproic Acid 250 mg 10/07/20 14:00 10/10/20 13:19 Valproic Acid (As Sodium Salt) 250 Mg/5 Ml Solution G-TUBE 250 mg Q12H ELIA Administration Labs CBC & Chem 7: 10/09/20 05:45 10/09/20 05:45 Microbiology Microbiology Results: Microbiology 10/04/20 21:00 Blood - Central Line Blood Culture - Final No growth after 5 days. 10/04/20 20:53 Blood - Central Line Blood Culture - Final No growth after 5 days. 10/04/20 06:56 Sputum - Suctioned Gram Stain - Final 10/04/20 06:56 Sputum - Suctioned Sputum Culture - Final Enterobacter cloacae complex 10/04/20 06:56 Urine [place] Urine Culture - Final No growth. 09/26/20 15:00 Sputum - Suctioned Gram Stain - Final 09/26/20 15:00 Sputum - Suctioned Sputum Culture - Final Enterobacter cloacae complex 09/22/20 21:39 Blood - Venous Blood Culture - Final No growth after 5 days. 09/22/20 21:38 Blood - Venous Blood Culture - Final No growth after 5 days. 09/22/20 22:07 Urine clean catch - Clean Catch Midstream Urine Culture - Final Escherichia coli Assessment and Plan (1) Acute respiratory failure: Status: Acute (2) Aspiration pneumonia: Status: Acute (3) Seizure: Status: Acute (4) H/O tracheostomy: Status: Acute Assessment and Plan: 60-year-old gentleman with underlying history of developmental delay, cerebral palsy, spastic quadriplegia, seizure disorder, dysphagia, wheelchair-bound, skilled nursing resident who presented to the ED 09/23/2020 with fever, vomitting. He was initially admitted to the hospital service for aspiration PNA. Covid was negative. While still in ED, he decompensated and was intubated and admitted to the ICU. He was treated with antibiotics including Zosyn, Vancomycin and Doxycycline. He was extubated on 09/28 and within 6 hours aspirated and was reintubated and treated with Unasyn for aspiration yet again. He subsequently failed extubation and underwent Tracheostomy by Dr. Herrera on 10/06 and a PEG by Dr. Hester on 10/08. He was taken off vent on 10/09 and then transfer to hospitalist service on 10/09. I sawa and examined the patient's who is ontracted, non communicative and didn't seem to be any apprent discomfort. He was noted to have a temp of 101. He seems to be tolerating his tube feed 1.Acute respiratoy failure due to recurrent aspiration--s/p intuabations and now with tracheostomy--stable, he will need placement at a facility that can handle trach 2. Recurrent aspiration pneumonia--he has been on multiple antibiotics including combination of Ceftriaxone, Doxycyline, Zosyn and Unasyn. Most recent WBC 11 on 10/09. -sputum culture grew Enterobacter Cloacea complex..He was restarted back on Ceftriaxone on 10/07 and is to complete and 7 day course thought 10/14 -repeat covid because of fever 3. Seizure d/o continue Valporoic acid 4. E.coli UTI--from 09/22 sample, should be adquately treated at this point 5. moderate to severe protein caloary malnutrition--continue tube feed, nutrition to genna adjustement as needed.
[2020-10-10] MEDS: cefTRIAXone sodium 1 GM in 0.9 % Sodium Chloride 50 ML IV (20:26)
[2020-10-11] VITALS (11 sets, daily range): BP systolic 104–157; BP diastolic 60–92; PULSE 93–130; RESP 18–26; TEMP 36.9–37.6; O2SAT 93–100; BMI 15.1
[2020-10-11] MEDS: Heparin Sodium,Porcine 5,000 UNIT/ML VIAL 5000 UNIT SUBCUT ×4 (00:02→21:28)
[2020-10-11] MEDS: 0.9 % Sodium Chloride Flush 3 ML SYRINGE IVFLUSH ×4 (00:03→23:40)
[2020-10-11] MEDS: Famotidine 20 MG TABLET G-TUBE (09:26)
[2020-10-11] MEDS: Metoprolol Tartrate 25 MG TABLET G-TUBE ×2 (09:26→21:28)
[2020-10-11] MEDS: LORazepam 2 MG/ML VIAL 1 MG IVPUSH ×2 (09:55→21:32)
[2020-10-11] MEDS: HYDROmorphone HCl 1 MG/ML SYRINGE 0.5 MG IVPUSH (10:46)
--- NOTE | 2020-10-11 13:15 | MHC.CLN ---
F/U PEG PLACED 10/08 RECOMMEND INCREASING OSMOLITE AT MAX GOAL RATE 40CC/HR WITH 240CC FREE WATER FLUSHES Q SHIFT TO PROVIDE 1440KCALS (30KCALS/KG), 60G PROTEIN (1.3G/KG), 1451CC TOTAL WATER FROM FORMULA AND FLUSHES (32CC/KG) MONITOR TOLERANCE, RESIDUALS AND LYTES
--- NOTE | 2020-10-11 14:34 | PC.NURSE ---
Pt appearing agitated and uncomfortable this morning - MD was in room to assess pt - recommended giving the pt the PRN ativan, upon reassessment pt still anxious in bed, restless, RR 26 at this time. Admin the PRN 0.5mg for increased work of breathing- good affect on reassessment of patient. Looking much more comfortable . Continuing repo q2. by staff but also repos himself. Keeping HOB 30 or more. Increased tube feed from 35-40ml/hr per order and 240ml frlush q8 ()was prev 120). Fungal in groin area- interdry placed. Small scab on right hand due to right thumb finger nail picking at it throughout the day- tried a pink foam, bandaid, gauce and tape- pt keeps taking it all off. Scab is closed at this time. Pt sounding congested at 3 different incidents today - sputum coming out of his trach - inner cannula changed by respiratory this am. RT and RN suctioned a medium amount of light yellow sputum w.some pink tinge at 3 different times. Pt seemed much more comfortable after and is able to cough. Will cont w/current plan at this time.
--- NOTE | 2020-10-11 14:51 | P.PNIM_ITS ---
Subjective Subjective Date of Service: 10/11/20 Interval History: Patient seen in follow-up for recent bout of aspiration pneumonia requiring intubation subsequently patient extubated had a tracheostomy and PEG tube placement and was transferred to hospitalist service on 10/09 at present patient resting in bed appears tachypneic and anxious has had no fevers overnight. Review of Systems Unable to obtain review of systems since patient is non verbal. Physical Exam Vital Signs: Vital Signs: Last Vital Signs Temp 98.4 F 10/11/20 08:00 Pulse 102 H 10/11/20 12:00 Resp 20 10/11/20 12:01 BP 121/79 10/11/20 12:00 Pulse Ox 99 10/11/20 12:00 Body Mass Index 15.1 General patient appears tachypneic and anxious, lying flat in bed. neck is supple respiratory bilateral rhonchi GI peg in place with no surrounding erythema, bowel sounds audible Skin no rash neuro unable to perform Objective Data Current Medications Generic Name Dose Route Start Last Admin Trade Name Freq PRN Reason Stop Dose Admin Acetaminophen 650 mg 09/30/20 20:05 09/30/20 20:17 Acetaminophen Oral Liquid 650 Mg/20.3 Ml Solution OG-TUBE 650 mg Q6H PRN Administration Pain and Fever Acetaminophen 650 mg 10/02/20 21:14 10/10/20 02:51 Acetaminophen Supp 650 Mg Supp.Rect [place] 650 mg Q6H PRN Administration Fever Bisacodyl 10 mg 09/28/20 14:02 10/02/20 10:04 Bisacodyl 10 Mg Supp.Rect [place] 10 mg DAILY PRN Administration Constipation Chlorhexidine Gluconate 15 ml 09/28/20 21:00 10/11/20 13:44 Chlorhexidine Gluc Oral Rinse 15 Ml Mouthwash BUCCAL Not Given TID ELIA Famotidine 20 mg 10/09/20 09:00 10/11/20 09:26 Famotidine 20 Mg Tablet G-TUBE 20 mg DAILY ELIA Administration Heparin Sodium (Porcine) 5,000 unit 10/07/20 14:00 10/11/20 13:38 Heparin Sodium,Porcine 5,000 Unit/Ml Vial SUBCUT 5,000 unit Q8H ELIA Administration Hydromorphone HCl 0.5 mg 10/09/20 10:18 10/11/20 10:46 Hydromorphone Hcl 1 Mg/Ml Syringe IVPUSH 0.5 mg Q1H PRN Administration WOB or distress Hydromorphone HCl 1 mg 10/09/20 10:18 Hydromorphone Hcl 2 Mg/Ml Vial IVPUSH Q1H PRN severe WOB or severe distress Ceftriaxone Sodium 1 gm/ 50 mls @ 100 mls/hr 10/07/20 21:00 10/11/20 01:00 Sodium Chloride IV 10/14/20 20:59 Infused Q24H ELIA Infusion Lactulose 30 gm 10/08/20 16:32 Lactulose 20 Gm/30 Ml Solution G-TUBE BID PRN constipation Lorazepam 1 mg 10/09/20 10:19 10/11/20 09:55 Lorazepam 2 Mg/Ml Vial IVPUSH 1 mg Q8H PRN Administration anxiety/restlessness Metoprolol Tartrate 25 mg 10/08/20 21:00 10/11/20 09:26 Metoprolol Tartrate 25 Mg Tablet G-TUBE 25 mg BID ELIA Administration Protocol Ondansetron HCl 4 mg 09/28/20 15:49 09/28/20 15:58 Ondansetron Hcl 4 Mg/2 Ml Vial IVPUSH 4 mg Q6H PRN Administration Nausea Sodium Chloride 3 ml 09/23/20 16:00 10/11/20 09:26 0.9 % Sodium Chloride Flush 3 Ml Syringe IVFLUSH 3 ml QSHIFT ELIA Administration Valproic Acid 250 mg 10/07/20 14:00 10/11/20 13:43 Valproic Acid (As Sodium Salt) 250 Mg/5 Ml Solution G-TUBE 250 mg Q12H ELIA Administration Labs CBC & Chem 7: 10/09/20 05:45 10/09/20 05:45 Microbiology Microbiology Results: Microbiology 10/04/20 21:00 Blood - Central Line Blood Culture - Final No growth after 5 days. 10/04/20 20:53 Blood - Central Line Blood Culture - Final No growth after 5 days. 10/04/20 06:56 Sputum - Suctioned Gram Stain - Final 10/04/20 06:56 Sputum - Suctioned Sputum Culture - Final Enterobacter cloacae complex 10/04/20 06:56 Urine [place] Urine Culture - Final No growth. 09/26/20 15:00 Sputum - Suctioned Gram Stain - Final 09/26/20 15:00 Sputum - Suctioned Sputum Culture - Final Enterobacter cloacae complex 09/22/20 21:39 Blood - Venous Blood Culture - Final No growth after 5 days. 09/22/20 21:38 Blood - Venous Blood Culture - Final No growth after 5 days. 09/22/20 22:07 Urine clean catch - Clean Catch Midstream Urine Culture - Final Escherichia coli Assessment and Plan (1) H/O tracheostomy: Status: Acute (2) Acute respiratory failure: Status: Acute (3) Aspiration pneumonia: Status: Acute (4) Seizure: Status: Acute (5) GERD (gastroesophageal reflux disease): Status: Acute (6) Osteoporosis: Status: Acute (7) Cerebral palsy: Status: Acute (8) UTI (urinary tract infection): Status: Acute Assessment and Plan: 60-year-old gentleman with underlying history of developmental delay, cerebral palsy, spastic quadriplegia, seizure disorder, dysphagia, wheelchair-bound, custodial resident who presented to the ED 09/23/2020 with fever, vomiting. He was initially admitted to the hospital service for aspiration PNA. Covid was negative. While still in ED, he decompensated and was intubated and admitted to the ICU. He was treated with antibiotics including Zosyn, Vancomycin and Doxycycline. He was extubated on 09/28 and within 6 hours aspirated and was reintubated and treated with Unasyn for aspiration yet again. He subsequently failed extubation and underwent Tracheostomy by Dr. Andrade on 10/06 and a PEG by Dr. Hester on 10/08. He was taken off vent on 10/09 and then transfer to hospitalist service on 10/09. 1.Acute respiratory failure due to recurrent aspiration--s/p intubation and now with tracheostomy--stable, he will need placement at a facility for tracheostomy and PEG care. patient appears tachypneic and anxious /restless will use as needed Ativan and follow clinical course. 2. Recurrent aspiration pneumonia--he has been on multiple antibiotics including combination of Ceftriaxone, Doxycycline, Zosyn and Unasyn. Most recent WBC 11 on 10/09. -sputum culture grew Enterobacter Cloacea complex..He was restarted back on Ceftriaxone on 10/07 and is to complete and 7 day course thought 10/14, continue current IV antibiotic 3. Seizure d/o continue Valproic acid 4. E.coli UTI--from 09/22 sample, status post antibiotic treatments. 5. moderate to severe protein calorie malnutrition--continue tube feeding. 6. code status full code will discuss code status with HCP.
--- NOTE | 2020-10-11 15:50 | MHC.CM.PN ---
KING attempted to contact pts DDS nurse, Nadia ([phone]), line was busy. KING contacted pts HCP/guardian/sister, Sharri ([phone]) to discuss DC plan. She is aware the pt has been offered a bed at [facility] and is likely to be cleared for DC tomorrow. She was also made aware that Rose ([phone]) from [facility] would be contacting her directly. pts medicare rights were reviewed with Sharri and she reports being agreeable to this DC plan. Sharri reports the DDS team is working on placing pt in a assisted in [place] where they are able to handle his medical needs. Rose at [facility] is aware they are working on an alternate assisted placement for the pt and if it is not ready prior to his LT[facility] DC, they will discuss interim SNF placement. Pts current DC plan is [facility] via [facility] on Sunday10/12/20 Second IMM delivered
--- NOTE | 2020-10-11 16:12 | PM.PNGS ---
Subjective Subjective Date of Service: 10/11/20 Interval history: Seen earlier today No events reported Seems to be tolerating tube feeds Physical Exam Vital Signs: Vital Signs: Last Vital Signs Temp 99.6 F 10/11/20 15:29 Pulse 109 H 10/11/20 15:29 Resp 20 10/11/20 15:29 BP 119/64 10/11/20 15:29 Pulse Ox 100 10/11/20 15:29 Body Mass Index 15.1 Const: Other: Not communicative, await General: no acute distress GI: Other: Abdomen soft, nondistended, peg tube in place, no obvious tenderness/guarding/rebound Progress Note: A&P Assessment and plan (1) Cerebral palsy: Status: Acute Assessment and Plan: Status post PEG placement last Sunday Ongoing tube feeds with no issues so far Abdomen soft Has multiple other medical issues The rest of care as per hospitalist service Fall Risk Details Current Medications: Current Medications Generic Name Dose Route Start Last Admin Trade Name Freq PRN Reason Stop Dose Admin Acetaminophen 650 mg 09/30/20 20:05 09/30/20 20:17 Acetaminophen Oral Liquid 650 Mg/20.3 Ml Solution OG-TUBE 650 mg Q6H PRN Administration Pain and Fever Acetaminophen 650 mg 10/02/20 21:14 10/10/20 02:51 Acetaminophen Supp 650 Mg Supp.Rect [place] 650 mg Q6H PRN Administration Fever Bisacodyl 10 mg 09/28/20 14:02 10/02/20 10:04 Bisacodyl 10 Mg Supp.Rect [place] 10 mg DAILY PRN Administration Constipation Chlorhexidine Gluconate 15 ml 09/28/20 21:00 10/11/20 13:44 Chlorhexidine Gluc Oral Rinse 15 Ml Mouthwash BUCCAL Not Given TID ELIA Famotidine 20 mg 10/09/20 09:00 10/11/20 09:26 Famotidine 20 Mg Tablet G-TUBE 20 mg DAILY ELIA Administration Heparin Sodium (Porcine) 5,000 unit 10/07/20 14:00 10/11/20 13:38 Heparin Sodium,Porcine 5,000 Unit/Ml Vial SUBCUT 5,000 unit Q8H ELIA Administration Hydromorphone HCl 0.5 mg 10/09/20 10:18 10/11/20 10:46 Hydromorphone Hcl 1 Mg/Ml Syringe IVPUSH 0.5 mg Q1H PRN Administration WOB or distress Hydromorphone HCl 1 mg 10/09/20 10:18 Hydromorphone Hcl 2 Mg/Ml Vial IVPUSH Q1H PRN severe WOB or severe distress Ceftriaxone Sodium 1 gm/ 50 mls @ 100 mls/hr 10/07/20 21:00 10/11/20 01:00 Sodium Chloride IV 10/14/20 20:59 Infused Q24H ELIA Infusion Lactulose 30 gm 10/08/20 16:32 Lactulose 20 Gm/30 Ml Solution G-TUBE BID PRN constipation Lorazepam 1 mg 10/09/20 10:19 10/11/20 09:55 Lorazepam 2 Mg/Ml Vial IVPUSH 1 mg Q8H PRN Administration anxiety/restlessness Metoprolol Tartrate 25 mg 10/08/20 21:00 10/11/20 09:26 Metoprolol Tartrate 25 Mg Tablet G-TUBE 25 mg BID ELIA Administration Protocol Ondansetron HCl 4 mg 09/28/20 15:49 09/28/20 15:58 Ondansetron Hcl 4 Mg/2 Ml Vial IVPUSH 4 mg Q6H PRN Administration Nausea Sodium Chloride 3 ml 09/23/20 16:00 10/11/20 09:26 0.9 % Sodium Chloride Flush 3 Ml Syringe IVFLUSH 3 ml QSHIFT ELIA Administration Valproic Acid 250 mg 10/07/20 14:00 10/11/20 13:43 Valproic Acid (As Sodium Salt) 250 Mg/5 Ml Solution G-TUBE 250 mg Q12H ELIA Administration Time Spent With Patient Time: Total time spent is greater than 50% in coordination of care (as documented) at patient's floor/unit and/or counseling patient: Time with patient: less than 15 minutes
[2020-10-11] MEDS: cefTRIAXone sodium 1 GM in 0.9 % Sodium Chloride 50 ML IV (21:27)
[2020-10-11] MEDS: Nystatin Powder 15 GM BOTTLE 1 APPL TOPICAL (21:58)
[2020-10-12] VITALS (9 sets, daily range): BP systolic 98–165; BP diastolic 54–78; PULSE 101–115; RESP 18–30; TEMP 36.6–39.2; O2SAT 94–100; BMI 14.7
[2020-10-12] MEDS: HYDROmorphone HCl 1 MG/ML SYRINGE 0.5 MG IVPUSH (01:03)
[2020-10-12] MEDS: Heparin Sodium,Porcine 5,000 UNIT/ML VIAL 5000 UNIT SUBCUT (05:57)
[2020-10-12] MEDS: LORazepam 2 MG/ML VIAL 1 MG IVPUSH ×2 (06:06→22:42)
[2020-10-12] MEDS: HYDROmorphone HCl 2 MG/ML VIAL 1 MG IVPUSH ×4 (08:00→22:42)
[2020-10-12] MEDS: 0.9 % Sodium Chloride Flush 3 ML SYRINGE IVFLUSH ×3 (08:01→23:54)
[2020-10-12] MEDS: Famotidine 20 MG TABLET G-TUBE (08:01)
[2020-10-12] MEDS: Nystatin Powder 15 GM BOTTLE 1 APPL TOPICAL ×2 (08:01→22:43)
[2020-10-12] MEDS: Metoprolol Tartrate 25 MG TABLET G-TUBE ×2 (08:01→22:46)
--- NOTE | 2020-10-12 11:56 | P.PNIM_ITS ---
Subjective Subjective Date of Service: 10/14/20 Interval History: Patient seen today for follow up on aspiration pneumonia patient is status post PEG NG tube patient nonverbal appear to be in distress this morning and noted to have bilateral upper extremity tremors. Review of Systems Unable to obtain review of systems since patient nonverbal with underlying cerebral palsy, developmental delay. Physical Exam Vital Signs: Vital Signs: Last Vital Signs Temp 99.1 F 10/12/20 11:00 Pulse 101 H 10/12/20 11:00 Resp 18 10/12/20 11:00 BP 165/78 H 10/12/20 11:00 Pulse Ox 99 10/12/20 11:00 Body Mass Index 14.7 General patient in bed appears restless moving his head in different position neck trach in place, no secretions noted lungs coarse breath sound abdomen soft bowel sounds audible extremities no edema skin no rash neuro unable to perform patient moving both upper extremities, moving head baseline nonverbal Objective Data Current Medications Generic Name Dose Route Start Last Admin Trade Name Freq PRN Reason Stop Dose Admin Acetaminophen 650 mg 09/30/20 20:05 09/30/20 20:17 Acetaminophen Oral Liquid 650 Mg/20.3 Ml Solution OG-TUBE 650 mg Q6H PRN Administration Pain and Fever Acetaminophen 650 mg 10/02/20 21:14 10/10/20 02:51 Acetaminophen Supp 650 Mg Supp.Rect [place] 650 mg Q6H PRN Administration Fever Bisacodyl 10 mg 09/28/20 14:02 10/02/20 10:04 Bisacodyl 10 Mg Supp.Rect [place] 10 mg DAILY PRN Administration Constipation Chlorhexidine Gluconate 15 ml 09/28/20 21:00 10/12/20 08:01 Chlorhexidine Gluc Oral Rinse 15 Ml Mouthwash BUCCAL Not Given TID ELIA Famotidine 20 mg 10/09/20 09:00 10/12/20 08:01 Famotidine 20 Mg Tablet G-TUBE 20 mg DAILY ELIA Administration Heparin Sodium (Porcine) 5,000 unit 10/07/20 14:00 10/12/20 05:57 Heparin Sodium,Porcine 5,000 Unit/Ml Vial SUBCUT 5,000 unit Q8H ELIA Administration Hydromorphone HCl 0.5 mg 10/09/20 10:18 10/12/20 01:03 Hydromorphone Hcl 1 Mg/Ml Syringe IVPUSH 0.5 mg Q1H PRN Administration WOB or distress Hydromorphone HCl 1 mg 10/09/20 10:18 10/12/20 11:37 Hydromorphone Hcl 2 Mg/Ml Vial IVPUSH 1 mg Q1H PRN Administration severe WOB or severe distress Ceftriaxone Sodium 1 gm/ 50 mls @ 100 mls/hr 10/07/20 21:00 10/11/20 22:19 Sodium Chloride IV 10/14/20 20:59 Infused Q24H ELIA Infusion Lactulose 30 gm 10/08/20 16:32 Lactulose 20 Gm/30 Ml Solution G-TUBE BID PRN constipation Lorazepam 1 mg 10/09/20 10:19 10/12/20 06:06 Lorazepam 2 Mg/Ml Vial IVPUSH 1 mg Q8H PRN Administration anxiety/restlessness Metoprolol Tartrate 25 mg 10/08/20 21:00 10/12/20 08:01 Metoprolol Tartrate 25 Mg Tablet G-TUBE 25 mg BID [facility] Administration Protocol Nystatin 1 appl 10/11/20 21:00 10/12/20 08:01 Nystatin Powder 15 Gm Bottle TOPICAL 1 appl BID [facility] Administration Protocol Ondansetron HCl 4 mg 09/28/20 15:49 09/28/20 15:58 Ondansetron Hcl 4 Mg/2 Ml Vial IVPUSH 4 mg Q6H PRN Administration Nausea Sodium Chloride 3 ml 09/23/20 16:00 10/12/20 08:01 0.9 % Sodium Chloride Flush 3 Ml Syringe IVFLUSH 3 ml QSHIFT [facility] Administration Valproic Acid 500 mg 10/12/20 21:00 Valproic Acid (As Sodium Salt) 250 Mg/5 Ml Solution G-TUBE BEDTIME [facility] Valproic Acid 250 mg 10/13/20 09:00 Valproic Acid (As Sodium Salt) 250 Mg/5 Ml Solution PO DAILY [facility] Labs CBC & Chem 7: 10/09/20 05:45 10/09/20 05:45 Microbiology Microbiology Results: Microbiology 10/04/20 21:00 Blood - Central Line Blood Culture - Final No growth after 5 days. 10/04/20 20:53 Blood - Central Line Blood Culture - Final No growth after 5 days. 10/04/20 06:56 Sputum - Suctioned Gram Stain - Final 10/04/20 06:56 Sputum - Suctioned Sputum Culture - Final Enterobacter cloacae complex 10/04/20 06:56 Urine [place] Urine Culture - Final No growth. 09/26/20 15:00 Sputum - Suctioned Gram Stain - Final 09/26/20 15:00 Sputum - Suctioned Sputum Culture - Final Enterobacter cloacae complex 09/22/20 21:39 Blood - Venous Blood Culture - Final No growth after 5 days. 09/22/20 21:38 Blood - Venous Blood Culture - Final No growth after 5 days. 09/22/20 22:07 Urine clean catch - Clean Catch Midstream Urine Culture - Final Escherichia coli Assessment and Plan (1) H/O tracheostomy: Status: Acute (2) Acute respiratory failure: Status: Acute (3) Aspiration pneumonia: Status: Acute (4) GERD (gastroesophageal reflux disease): Status: Acute (5) Seizure: Status: Acute (6) Osteoporosis: Status: Acute (7) Cerebral palsy: Status: Acute (8) UTI (urinary tract infection): Status: Acute Assessment and Plan: 60-year-old gentleman with underlying history of developmental delay, cerebral palsy, spastic quadriplegia, seizure disorder, dysphagia, wheelchair-bound, jail resident who presented to the ED 09/23/2020 with fever, vomiting. He was initially admitted to the hospital service for aspiration PNA. Covid was negative. While still in ED, he decompensated and was intubated and admitted to the ICU. He was treated with antibiotics including Zosyn, Vancomycin and Doxycycline. He was extubated on 09/28 and within 6 hours aspirated and was reintubated and treated with Unasyn for aspiration yet again. He subsequently failed extubation and underwent Tracheostomy by Dr. Andrade on 10/06 and a PEG by Dr. Hester on 10/08. He was taken off vent on 10/09 and then transfer to hospitalist service on 10/09. 1.Acute respiratory failure due to recurrent aspiration--s/p intubation and now with tracheostomy--stable, he will need placement at a facility for tracheostomy and PEG care. patient appears,restless, tachypneic, therefore trach tube changed, no secretions noted will continue anxiolytics and resume home medications including SSRIs. Called nurse from jail Nadia at [phone] to find out patient's baseline status and left message. 2. Recurrent aspiration pneumonia--he has been on multiple antibiotics including combination of Ceftriaxone, Doxycycline, Zosyn and Unasyn. Most recent WBC 11 on 10/09. -sputum culture grew Enterobacter Cloacea complex..He was restarted back on Ceftriaxone on 10/07 and is to complete and 7 day course thought 10/14, continue current IV antibiotic 3. Seizure d/o continue Valproic acid , adjusted dosage since patient was using 500 mg Depakote at bedtime and 250 daily. 4. E.coli UTI--from 09/22 sample, status post antibiotic treatments. 5. moderate to severe protein calorie malnutrition--continue tube feeding , further adjustment as per Nutrition. 6. code status discussed with patient's sister who is healthcare proxy Sharri Connollyalenacarmen and discuss quality of life with her she agreed for DNR DNI and does not wish him to suffer anymore. 7. mood disorder patient is on 2 SSRIs including fluoxetine and fluvoxamine called jail RN to verify and left message will resume fluoxetine low-dose to avoid withdrawal symptoms
[2020-10-12] MEDS: Enoxaparin Sodium 40 MG/0.4 ML SYRINGE SUBCUT (15:13)
--- NOTE | 2020-10-12 18:28 | PC.NURSE ---
FEVER 102.6 THIS AM TACYCARDIC IN THE ONE TEENS TACHYPNEIC RR 30. PT SKIN NOTED TO BE DIAPHORETIC. MEDICATED WITH TYLENOL SUPPOSITORY, IV DILAUDID, METOPROLOL. HOSPITALIST NOTIFIED VIA TIGER TEXT TEMP RECHECK DOWN TO 99.1/97.9. HR DOWN TO 110. RR IMPROVED BUT CONTINUED TO MEDICATE WITH PRN IV DILAUDID. TRACH CARE COMPLETE. SUCTION X1 WITH PINK TINGED SPUTUM. INNER CANNULA CHANGED OUT X2. FREQUENT REPOSITION TO KEEP HOB ELEVATED.
[2020-10-12] MEDS: cefTRIAXone sodium 1 GM in 0.9 % Sodium Chloride 50 ML IV (22:41)
[2020-10-13] VITALS (7 sets, daily range): BP systolic 95–149; BP diastolic 59–81; PULSE 90–120; RESP 18–20; TEMP 36–38; O2SAT 93–98; BMI 16.8
--- NOTE | 2020-10-13 10:03 | MHC.CM.PN ---
KING returned a call to S Nurse Nadia @ [phone]. Per Nadia, [facility] in [place] is the first choice for dc. A referral was made to [facility] on 10/06, via [employer], but there was no response. KING spoke with Marine in Admissions at [facility], who indicated that this referral is in review with the Admission board. KING awaits a return call from Marine. Nadia is attempting to get a copy of the entire guardianship paperwork. After dc from [facility], Patient will be placed in a fdc that has 24/7 Nursing and can care for a matured trach. CM will follow.
[2020-10-13] MEDS: Famotidine 20 MG TABLET G-TUBE (10:13)
[2020-10-13] MEDS: 0.9 % Sodium Chloride Flush 3 ML SYRINGE IVFLUSH ×2 (10:13→23:36)
[2020-10-13] MEDS: FLUoxetine HCl Oral Solution 20 MG/5 ML SOLUTION 40 MG G-TUBE (10:13)
[2020-10-13] MEDS: Metoprolol Tartrate 25 MG TABLET G-TUBE ×2 (10:13→20:47)
[2020-10-13] MEDS: Nystatin Powder 15 GM BOTTLE 1 APPL TOPICAL ×2 (10:14→20:47)
--- NOTE | 2020-10-13 11:40 | P.PNIM_ITS ---
Subjective Subjective Date of Service: 10/13/20 Interval History: Seen in follow up for post ICU care for respiratory failure d/t aspiration pneumonia s/p status post PEG and Trach. Non-verbal , seems comfortable today. Review of Systems Unable to obtain review of systems since patient nonverbal with underlying cerebral palsy, developmental delay. Physical Exam Vital Signs: Vital Signs: Last Vital Signs Temp 98.4 F 10/13/20 07:00 Pulse 106 H 10/13/20 07:00 Resp 18 10/13/20 07:00 BP 123/67 10/13/20 07:00 Pulse Ox 97 10/13/20 10:30 Body Mass Index 16.8 General: calm, lying position on left side neck trach in place, no secretions noted lungs coarse breath sound abdomen soft bowel sounds audible extremities no edema skin no rash neuro unable to perform patient moving both upper extremities, moving head baseline nonverbal Objective Data Current Medications Generic Name Dose Route Start Last Admin Trade Name Freq PRN Reason Stop Dose Admin Acetaminophen 650 mg 09/30/20 20:05 09/30/20 20:17 Acetaminophen Oral Liquid 650 Mg/20.3 Ml Solution OG-TUBE 650 mg Q6H PRN Administration Pain and Fever Acetaminophen 650 mg 10/02/20 21:14 10/10/20 02:51 Acetaminophen Supp 650 Mg Supp.Rect DC 650 mg Q6H PRN Administration Fever Bisacodyl 10 mg 09/28/20 14:02 10/02/20 10:04 Bisacodyl 10 Mg Supp.Rect DC 10 mg DAILY PRN Administration Constipation Chlorhexidine Gluconate 15 ml 09/28/20 21:00 10/13/20 09:12 Chlorhexidine Gluc Oral Rinse 15 Ml Mouthwash BUCCAL Not Given TID ELIA Enoxaparin Sodium 40 mg 10/12/20 14:00 10/12/20 15:13 Enoxaparin Sodium 40 Mg/0.4 Ml Syringe SUBCUT 40 mg Q24H ELIA Administration Famotidine 20 mg 10/09/20 09:00 10/13/20 10:13 Famotidine 20 Mg Tablet G-TUBE 20 mg DAILY ELIA Administration Fluoxetine HCl 40 mg 10/13/20 09:00 10/13/20 10:13 Fluoxetine Hcl Oral Solution 20 Mg/5 Ml Solution G-TUBE 40 mg DAILY ELIA Administration Hydromorphone HCl 0.5 mg 10/09/20 10:18 10/12/20 01:03 Hydromorphone Hcl 1 Mg/Ml Syringe IVPUSH 0.5 mg Q1H PRN Administration WOB or distress Hydromorphone HCl 1 mg 10/09/20 10:18 10/12/20 22:42 Hydromorphone Hcl 2 Mg/Ml Vial IVPUSH 1 mg Q1H PRN Administration severe WOB or severe distress Ceftriaxone Sodium 1 gm/ 50 mls @ 100 mls/hr 10/07/20 21:00 10/12/20 23:14 Sodium Chloride IV 10/14/20 20:59 Infused Q24H ELIA Infusion Lactulose 30 gm 10/08/20 16:32 Lactulose 20 Gm/30 Ml Solution G-TUBE BID PRN constipation Lorazepam 1 mg 10/09/20 10:19 10/12/20 22:42 Lorazepam 2 Mg/Ml Vial IVPUSH 1 mg Q8H PRN Administration anxiety/restlessness Metoprolol Tartrate 25 mg 10/08/20 21:00 10/13/20 10:13 Metoprolol Tartrate 25 Mg Tablet G-TUBE 25 mg BID ELIA Administration Protocol Nystatin 1 appl 10/11/20 21:00 10/13/20 10:14 Nystatin Powder 15 Gm Bottle TOPICAL 1 appl BID ELIA Administration Protocol Ondansetron HCl 4 mg 09/28/20 15:49 09/28/20 15:58 Ondansetron Hcl 4 Mg/2 Ml Vial IVPUSH 4 mg Q6H PRN Administration Nausea Sodium Chloride 3 ml 09/23/20 16:00 10/13/20 10:13 0.9 % Sodium Chloride Flush 3 Ml Syringe IVFLUSH 3 ml QSHIFT ELIA Administration Valproic Acid 500 mg 10/12/20 21:00 10/12/20 22:42 Valproic Acid (As Sodium Salt) 250 Mg/5 Ml Solution G-TUBE 500 mg BEDTIME ELIA Administration Valproic Acid 250 mg 10/13/20 09:00 10/13/20 10:13 Valproic Acid (As Sodium Salt) 250 Mg/5 Ml Solution PO 250 mg DAILY ELIA Administration Labs CBC & Chem 7: 10/09/20 05:45 10/09/20 05:45 Microbiology Microbiology Results: Microbiology 10/04/20 21:00 Blood - Central Line Blood Culture - Final No growth after 5 days. 10/04/20 20:53 Blood - Central Line Blood Culture - Final No growth after 5 days. 10/04/20 06:56 Sputum - Suctioned Gram Stain - Final 10/04/20 06:56 Sputum - Suctioned Sputum Culture - Final Enterobacter cloacae complex 10/04/20 06:56 Urine [place] Urine Culture - Final No growth. 09/26/20 15:00 Sputum - Suctioned Gram Stain - Final 09/26/20 15:00 Sputum - Suctioned Sputum Culture - Final Enterobacter cloacae complex 09/22/20 21:39 Blood - Venous Blood Culture - Final No growth after 5 days. 09/22/20 21:38 Blood - Venous Blood Culture - Final No growth after 5 days. 09/22/20 22:07 Urine clean catch - Clean Catch Midstream Urine Culture - Final Escherichia coli Assessment and Plan (1) H/O tracheostomy: Status: Acute (2) Acute respiratory failure: Status: Acute (3) Aspiration pneumonia: Status: Acute (4) GERD (gastroesophageal reflux disease): Status: Acute (5) Seizure: Status: Acute (6) Osteoporosis: Status: Acute (7) Cerebral palsy: Status: Acute (8) UTI (urinary tract infection): Status: Acute Assessment and Plan: 60-year-old gentleman with underlying history of developmental delay, cerebral palsy, spastic quadriplegia, seizure disorder, dysphagia, wheelchair-bound, [facility] resident who presented to the ED 09/23/2020 with fever, vomiting. He was initially admitted to the hospital service for aspiration PNA. Covid was negative. While still in ED, he decompensated and was intubated and admitted to the ICU. He was treated with antibiotics including Zosyn, Vancomycin and Doxycycline. He was extubated on 09/28 and within 6 hours aspirated and was reintubated and treated with Unasyn for aspiration yet again. He subsequently failed extubation and underwent Tracheostomy by Dr. Andrade on 10/06 [address] a [address] Dr. Hester on 10/08. He was taken off vent on 10/09 and then transfer to hospitalist service on 10/09. 1.Acute respiratory failure due to recurrent aspiration--s/p intubation and now with tracheostomy--stable, he will need placement at a facility for tracheostomy and PEG care.. No respiratory issues at moment 2. Recurrent aspiration pneumonia--he has been on multiple antibiotics including combination of Ceftriaxone, Doxycycline, Zosyn and Unasyn. Most recent WBC 11 on 10/09. -sputum culture grew Enterobacter Cloacea complex..He was restarted back on Ceftriaxone on 10/07 and is to complete and 7 day course though 10/14, continue current IV antibiotic 3. Seizure d/o continue Valproic acid continue home dose of 500 mg in am and 250 att bedtime . 4. E.coli UTI--from 09/22 sample, status post antibiotic treatments. 5. moderate to severe protein calorie malnutrition--continue tube feeding , further adjustment as per Nutrition. 6. code status discussed with patient's sister who is healthcare proxy Sharri Thurman and discuss quality of life with her she agreed for DNR DNI and does not wish him to suffer anymore. 7. mood disorder patient is prescribed 2 SSRIs fluoxetine and fluvoxamine, he has not been on them since been in ICU, restart on Fluoxetine only--No rational for both. Awaiting Placement to either [facility] or [facility] [place]
--- NOTE | 2020-10-13 12:43 | MHC.CM.PN ---
KING has left a message for Marine at [facility] ([phone]), requesting status update on Patient's referral to their facility; KING awaits a return call from Marine.
--- NOTE | 2020-10-13 12:52 | MHC.CLN ---
F/U PT RECEIVING OSMOLITE AT MAX GOAL RATE 40CC/HR WITH 240CC FREE WATER FLUSHES Q SHIFT TO PROVIDE 1440KCALS (30KCALS/KG), 60G PROTEIN (1.3G/KG), 1451CC TOTAL WATER FROM FORMULA AND FLUSHES (32CC/KG) LABS REVIEWED NO NEW; WT STABLE MONITOR TOLERANCE, RESIDUALS AND LYTES GOAL WT GAIN 1-2# PER WEEK
--- NOTE | 2020-10-13 13:09 | MHC.CM.PN ---
CM spoke with Marine at [facility]. The earliest [facility] would be able to take Patient is Sunday10/18/20 (needs a financial check, RN TO RN, RN TO RT). Per MD, Patient may be ready tomorrow. [facility] remains to be the first choice facility. CM will follow.
--- NOTE | 2020-10-13 13:24 | MHC.CM.PN ---
KING has left a message for Shy Alvarez,connected with Patient's Alf([phone], [phone]), requesting a full copy of Patient's Guardianship (Baljit is requesting this to make sure that the clause that allows the Guardian to admit to SNF is included, just in case SNF is necessary after LTACH). KING awaits a return call from Shy.
[2020-10-13] MEDS: Enoxaparin Sodium 40 MG/0.4 ML SYRINGE SUBCUT (14:09)
[2020-10-13] MEDS: Acetaminophen Oral Liquid 650 MG/20.3 ML SOLUTION OG-TUBE (14:22)
--- NOTE | 2020-10-13 15:58 | PC.NURSE ---
While repositionging and giving care to patient he began gagging and couging. Large amount of cream colored phlegm expectorated through trach. Suctioned for cream colored to clear sputum. Patient continued coughing and expectorating. Expelled carlitos size dark, hard mucous. Vitals 100.4, 104, 20, 130/66, 93% on 5L trach mask. Lung sounds coarse. Trach care given. Tube feedings put on hold. Had 100cc residual this am. 30cc residual at present. Dr. Claudio notified. To hold tube feedings and get cxr. Patient positioned upright in bed and in no respiratory distress at present. Will continue to monitor.
[2020-10-13] MEDS: cefTRIAXone sodium 1 GM in 0.9 % Sodium Chloride 50 ML IV (20:46)
[2020-10-14 04:37] VITALS: BP 147/91; PULSE 108; RESP 20; TEMP 37; O2SAT 96
[2020-10-14 05:13] VITALS: BMI 17.2
[2020-10-14 09:29] VITALS: BP 147/91; PULSE 102
[2020-10-14] MEDS: FLUoxetine HCl Oral Solution 20 MG/5 ML SOLUTION 40 MG G-TUBE (09:29)
[2020-10-14] MEDS: Metoprolol Tartrate 25 MG TABLET G-TUBE ×2 (09:29→22:43)
[2020-10-14] MEDS: Nystatin Powder 15 GM BOTTLE 1 APPL TOPICAL ×2 (09:31→22:44)
[2020-10-14] MEDS: 0.9 % Sodium Chloride Flush 3 ML SYRINGE IVFLUSH (09:31)
[2020-10-14] MEDS: Famotidine 20 MG TABLET G-TUBE (09:31)
--- NOTE | 2020-10-14 11:33 | PM.DS ---
DS: Providers Provider Date of admission: 09/23/20 09:10 Primary care physician: Bonifacio Fletcher MD Consults: 09/23/20 10:23 Consult to Infectious Diseases Routine Consulting Provider: Infectious Disease Reason for consultation: Sepsis Has provider been notified: No 10/07/20 14:38 Consult to General Surgery Routine Consulting Provider: Kevin Hester Reason for consultation: Gastrostomy Has provider been notified: Yes DS: Diagnosis Discharge Diagnosis (1) H/O tracheostomy: Status: Acute (2) Acute respiratory failure: Status: Acute (3) Aspiration pneumonia: Status: Acute (4) GERD (gastroesophageal reflux disease): Status: Acute (5) Seizure: Status: Acute (6) Osteoporosis: Status: Acute (7) Cerebral palsy: Status: Acute (8) UTI (urinary tract infection): Status: Acute DS: Medications Discharge Medications Home Medications: Home Medications Medication Instructions Recorded Confirmed alendronate 70 mg PO Q7D 09/22/20 09/22/20 Previous Rx's Medication Instructions Recorded acetaminophen 650 mg OG-TUBE Q6H PRN #240 ml 10/14/20 acetaminophen 650 mg OH Q6H PRN #30 ea 10/14/20 bisacodyl [Gentle Laxative 10 mg OH DAILY PRN #3 ea 10/14/20 (bisacodyl)] chlorhexidine gluconate 15 ml BUCCAL TID #240 ml 10/14/20 famotidine 20 mg G-TUBE DAILY #240 tab 10/14/20 fluoxetine 40 mg G-TUBE DAILY #240 ml 10/14/20 lactulose 30 g G-TUBE BID PRN #240 ml 10/14/20 metoprolol tartrate 25 mg G-TUBE BID #240 tab 10/14/20 nystatin 1 appl TOPICAL BID #1 g 10/14/20 valproic acid (as sodium salt) 250 mg PO DAILY #240 ml 10/14/20 valproic acid (as sodium salt) 500 mg G-TUBE BEDTIME #240 ml 10/14/20 DS: Summary Hospital Course Hospital Course: History of presenting illness 60-year-old with 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 and wheelchair-bound noted to be short of breath presented with acute hypoxemic respiratory failure intubated with significant pattern of extensive bilateral ground-glass infiltrates and consolidation with elevated white count and left shift negative for COVID but the rest of the respiratory panel is pending he has become increasingly hypercapnic with end-tidal CO2 is dropping to 17 in the face of a pCO2 of over 40 no change in in pH no change in bicarb and proof of resolved lactate and what looks like increasing extent of infiltrates bilaterally and we now have CVP measurements which have been hovering at around 10 the implication here is that this is a response to diminishing alveolar ventilation, in other words, increasing space potentially consistent with pulmonary edema versus progressive ARDS bedside echo shows normal LV and RV size and function with no primary valve or pericardial disease right internal jugular central venous pressure line with tip in the right atrium was placed because of lack of venous access and the patient is being treated with Zosyn and vancomycin. Past medical history Anxiety Cerebral palsy GERD (gastroesophageal reflux disease) Osteoporosis Seizure Spastic quadriplegia Hospital course 60-year-old gentleman with underlying history of developmental delay, cerebral palsy, spastic quadriplegia, seizure disorder, dysphagia, wheelchair-bound, [facility] resident who presented to the ED 09/23/2020 with fever, vomiting. He was initially admitted to the hospital service for aspiration PNA. Covid was negative. While still in ED, he decompensated and was intubated and admitted to the ICU. He was treated with antibiotics including Zosyn, Vancomycin and Doxycycline. He was extubated on 09/28 and within 6 hours aspirated and was reintubated and treated with Unasyn for aspiration yet again. He subsequently failed extubation and underwent Tracheostomy by Dr. Andrade on 10/06 [address] a PEG by Dr. Hester on 10/08. He was taken off vent on 10/09 and then transfer to hospitalist service on 10/09. 1.Acute respiratory failure due to recurrent aspiration--s/p intubation and now with tracheostomy--stable, is being discharged to [facility] for tracheostomy and PEG care.. No respiratory issues at moment 2. Recurrent aspiration pneumonia--he has been on multiple antibiotics including combination of Ceftriaxone, Doxycycline, Zosyn and Unasyn. Most recent WBC 11 on 10/09. -sputum culture grew Enterobacter Cloacea complex..He was restarted back on Ceftriaxone on 10/07 and completed 7 day course today. 3. Seizure d/o continue Valproic acid continue home dose of 500 mg at bedtime and 250 at a.m. . 4. E.coli UTI--from 09/22 sample, status post antibiotic treatments. 5. moderate to severe protein calorie malnutrition--continue tube feeding , further adjustment as per repeat albumin levels. 6. code status discussed with patient's sister who is healthcare proxy Sharri Thurman and discuss quality of life with her she agreed for DNR DNI and does not wish him to suffer anymore. 7. mood disorder patient is prescribed 2 SSRIs fluoxetine and fluvoxamine, he has not been on them since been in ICU, restart on Fluoxetine only--No rational for both. Time Spent with Patient Time attestation: Total time spent providing and/or coordinating discharge services: Physical Exam Vital Signs: Vital Signs: Last Vital Signs Temp 98.6 F 10/14/20 04:37 Pulse 102 H 10/14/20 09:29 Resp 20 10/14/20 04:37 BP 147/91 H 10/14/20 09:29 Pulse Ox 96 10/14/20 04:37 Body Mass Index 17.2 General: calm, this am. neck trach in place, no secretions noted lungs coarse breath sounds. abdomen soft, bowel sounds audible. extremities no edema skin no rash neuro unable to perform patient moving both upper extremities, moving head. baseline nonverbal. DS: Data Data Completed and Pending Labs on day of discharge: 09/22/20 21:03 ondansetron HCL [Zofran] 4 mg IVPUSH ONCE ONE 09/22/20 21:04 XR chest 1V Stat 09/22/20 21:15 0.9 % Sodium Chloride [Ns] 500 ml IV 1,000 mls/hr 09/22/20 21:28 COVID-19 ID NOW (Navas) Stat 09/22/20 21:29 Basic Metabolic Panel Stat Complete Blood Count Auto Diff Stat Lactic Acid Stat Lipase Stat Liver Panel Stat SLIDE REVIEW Stat 09/22/20 21:39 Blood Culture X2 [BC] Stat 09/22/20 21:50 Vital Signs Q30M 0.9 % Sodium Chloride [Ns] 1,374.39 ml IVCONT 1,374.39 mls/hr cefTRIAXone sodium [Rocephin] 1 gm 0.9 % Sodium Chloride [Ns] 100 ml IV ONCE 09/22/20 21:53 Piperacillin Sodium/Tazobactam [Zosyn] 3.375 gm 0.9 % Sodium Chloride [Ns] 50 ml IV ONCE 09/22/20 21:54 Acetaminophen [Tylenol] 325 mg OH ONCE ONE 09/22/20 21:55 Straight Urinary Catheterization .Now Consult Rx Perform Med Rec 1 each MISCELLANE ONCE PRN 09/22/20 21:59 cefTRIAXone sodium [Rocephin] 1 gm .ROUTE .STK-MED ONE 09/22/20 22:07 Urine Culture Routine 09/22/20 22:34 Piperacillin Sodium/Tazobactam [Zosyn] 3.375 gm IV .STK-MED ONE 09/22/20 23:37 vancomycin HCL 750 mg 0.9 % Sodium Chloride [Ns] 250 ml IV ONCE 09/22/20 23:44 vancomycin HCL 750 mg IV .STK-MED ONE 09/23/20 00:56 0.9 % Sodium Chloride [Ns] 1,000 ml IVCONT 999 mls/hr 09/23/20 00:57 Transfer Order Routine 09/23/20 00:58 Code Status Routine 09/23/20 01:07 LORazepam [Ativan] 1 mg IVPUSH ONCE ONE 09/23/20 01:15 Alendronate Sodium [Fosamax] 70 mg PO Q7D 09/23/20 03:47 XR chest 1V Stat 09/23/20 04:10 Lactic Acid Stat 09/23/20 04:34 CT abdomen pelvis w con Stat 09/23/20 04:38 Venous Blood Gas Stat 09/23/20 06:30 FLUoxetine HCl [Prozac] 60 mg PO DAILY@0630 Omeprazole [PriLOSEC] 20 mg PO BID@0630,1630 09/23/20 06:31 Acetaminophen [Tylenol] 650 mg OH ONCE ONE 09/23/20 06:34 iohexoL 350 MG/ML [Omnipaque 350 MG/ML] 65 ml IV ONCE ONE 09/23/20 07:38 Rocuronium [place] [Zemuron] 60 mg IV NOW STA 09/23/20 07:39 Etomidate [Amidate] 10 mg IVPUSH ONCE ONE 09/23/20 07:40 Naloxone HCl [Narcan] 0.2 mg IVPUSH Q2M PRN 09/23/20 07:45 fentaNYL citrate/NS [Sublimaze/NS] 1,000 mcg in 100 ml IVCONT Per Protocol mcg/hr 09/23/20 07:59 XR chest 1V Stat 09/23/20 08:25 CT chest wo con Stat 09/23/20 09:00 Divalproex Sodium ER [Depakote ER] 250 mg PO DAILY 09/23/20 09:09 Vent Settings Q4HR 09/23/20 09:10 Continuous pulse oximetry ONCE Intake and Output Q1HR Vital Signs Q1HR 09/23/20 09:15 0.9 % Sodium Chloride [Ns] 1,000 ml IVCONT 100 mls/hr Divalproex Sodium Sprinkles [Depakote Sprinkles] 375 mg PO BID ONE 09/23/20 09:30 propofoL [Diprivan] 1,000 mg in 100 ml IVCONT Per Protocol mcg/kg/min 09/23/20 09:35 propofoL [Diprivan] 1,000 mg in 100 ml IVCONT As directed 09/23/20 Breakfast NPO Diet 09/23/20 10:23 0.9 % Sodium Chloride Flush [NS Flush] 3 ml IVFLUSH QSHIFT 0.9 % Sodium Chloride [Ns] 1,000 ml IVCONT 75 mls/hr Heparin Sodium,Porcine 5,000 unit SUBCUT Q8H Piperacillin Sodium/Tazobactam [Zosyn] 3.375 gm 0.9 % Sodium Chloride [Ns] 50 ml IV Q6H 09/23/20 10:23 Ambulate QSHIFT WHILE AWAKE Intake and Output QSHIFTE Vital Signs QSHIFT 09/23/20 10:31 Respiratory Panel Stat Strep Pneumo Ag urine Stat 09/23/20 10:41 Basic Metabolic Panel Routine Complete Blood Count Man Dif Routine ~Lactic Acid-LAB USE ONLY Stat 09/23/20 11:19 Midazolam HCl [Versed] 10 mg IVPUSH .STK-MED ONE 09/23/20 11:35 Piperacillin Sodium/Tazobactam [Zosyn] 3.375 gm IV .STK-MED ONE 09/23/20 12:00 NON-Behavioral Restraint Q24H Albuterol/Iprat 2.5/0.5MG 3 ML [Duoneb] 3 ml INHALE RQID vancomycin HCL 500 mg 0.9 % Sodium Chloride [Ns] 100 ml IV Q12H 09/23/20 12:12 Midazolam HCl [Versed] 10 mg IVPUSH .STK-MED ONE 09/23/20 12:31 Midazolam HCl/PF [Versed] 3 mg IVPUSH ONCE ONE 09/23/20 12:32 Midazolam HCl/PF [Versed] 5 mg IVPUSH ONCE ONE 09/23/20 12:39 XR chest 1V Stat 09/23/20 12:53 VBG [Venous Blood Gas] Stat Vancomycin Trough Stat 09/23/20 12:58 Rocuronium [place] [Zemuron] 50 mg .ROUTE .STK-MED ONE 09/23/20 13:00 vancomycin HCL 750 mg IV Q12H 09/23/20 13:07 Midazolam HCl/PF [Versed] 2 mg IVPUSH ONCE ONE 09/23/20 13:08 Rocuronium [place] [Zemuron] 20 mg IVPUSH ONCE ONE 09/23/20 13:37 Furosemide [Lasix] 20 mg .ROUTE .STK-MED ONE 09/23/20 13:43 Furosemide [Lasix] 10 mg IVPUSH ONCE ONE 09/23/20 14:00 dexAMETHasone sod phosphate [Decadron] 6 mg IVPUSH BID 09/23/20 14:48 Rocuronium [place] [Zemuron] 20 mg IVPUSH ONCE ONE 09/23/20 14:50 Norepinephrine Bitartrate/NS [Levophed] 8 mg in 250 ml IVCONT As directed 09/23/20 15:00 Norepinephrine Bitartrate/NS [Levophed] 8 mg in 250 ml IVCONT Per Protocol mcg/kg/min 09/23/20 15:30 Chlorhexidine Gluc Oral Rinse [Peridex] 15 ml BUCCAL TID 09/23/20 16:12 Piperacillin Sodium/Tazobactam [Zosyn] 3.375 gm IV .STK-MED ONE 09/23/20 16:35 Sodium Phosphate,Bleckley-Dibasic [Fleet Enema] 133 ml OH ONCE PRN 09/23/20 17:53 Non-behavioral order assessment Q2HR 09/23/20 21:00 Divalproex Sodium ER [Depakote ER] 500 mg PO BEDTIME fluvoxaMINE Maleate [Luvox] 50 mg PO BEDTIME 09/23/20 21:23 Piperacillin Sodium/Tazobactam [Zosyn] 3.375 gm IV .STK-MED ONE 09/24/20 XR chest 1V Stat 09/24/20 02:15 Venous Blood Gas Stat 09/24/20 03:31 Piperacillin Sodium/Tazobactam [Zosyn] 3.375 gm IV .STK-MED ONE 09/24/20 04:28 Legionella Ag Urine Stat 09/24/20 05:20 Basic Metabolic Panel Routine C Reactive Protein Routine Complete Blood Count Auto Diff Routine Creatine Kinase Total Routine D Dimer Routine Lactate Dehydrogenase Routine Lactic Acid Routine Magnesium Routine Phosphorus Routine Procalcitonin Routine SLIDE REVIEW Routine 09/24/20 08:30 KCl 20 mEq in 5 % Dex/Lact Rin 20 meq in 1,000 ml IVCONT 100 mls/hr Piperacillin Sodium/Tazobactam [Zosyn] 3.375 gm IV .STK-MED ONE 09/24/20 12:00 Restraint - Non Violent 24 HOURS 09/24/20 12:30 Vancomycin Trough Routine 09/24/20 12:33 LORazepam [Ativan] 0.5 mg IVPUSH Q4H PRN 09/24/20 14:00 vancomycin HCL 1,000 mg IV Q12H 09/24/20 15:05 MRSA Nasal Screen Routine 09/24/20 16:41 Piperacillin Sodium/Tazobactam [Zosyn] 3.375 gm IV .STK-MED ONE 09/24/20 18:49 Non-behavioral order assessment ONCE 09/24/20 19:00 NON-Behavioral Restraint Q24H 09/24/20 21:38 Piperacillin Sodium/Tazobactam [Zosyn] 3.375 gm IV .STK-MED ONE 09/24/20 22:29 COVID-19 ID NOW (Navas) Stat 09/25/20 04:20 Piperacillin Sodium/Tazobactam [Zosyn] 3.375 gm IV .STK-MED ONE 09/25/20 05:20 Basic Metabolic Panel Routine Complete Blood Count Auto Diff Routine Creatine Kinase Total Routine D Dimer Stat Ferritin Routine LDH [Lactate Dehydrogenase] Routine Magnesium Routine Phosphorus Routine Procalcitonin Stat SLIDE REVIEW Routine Venous Blood Gas Routine 09/25/20 07:15 Potassium Phosphate [KPhos] 15 mmol 0.9 % Sodium Chloride [Ns] 500 ml IV Q6H Sodium Chloride 0.45 % 1,000 ml IVCONT 100 mls/hr 09/25/20 08:00 0.9 % Sodium Chloride Flush [NS Flush] 3 ml IVFLUSH QSHIFT 09/25/20 11:48 Piperacillin Sodium/Tazobactam [Zosyn] 3.375 gm IV .STK-MED ONE 09/25/20 15:24 Piperacillin Sodium/Tazobactam [Zosyn] 3.375 gm IV .STK-MED ONE 09/25/20 19:00 NON-Behavioral Restraint Q24H 09/25/20 20:45 fentaNYL citrate/NS [Sublimaze/NS] 1,000 mcg in 100 ml IVCONT Per Protocol mcg/hr 09/25/20 21:35 Piperacillin Sodium/Tazobactam [Zosyn] 3.375 gm IV .STK-MED ONE 09/25/20 22:59 Non-behavioral order assessment ONCE 09/26/20 01:01 Vancomycin Trough Stat 09/26/20 02:13 vancomycin HCL 500 mg IV .STK-MED ONE 09/26/20 02:15 vancomycin HCL 1,250 mg IV Q12H 09/26/20 04:00 Venous Blood Gas Routine 09/26/20 04:50 Basic Metabolic Panel Routine Complete Blood Count Auto Diff Routine Magnesium Routine Phosphorus Routine SLIDE REVIEW Routine Venous Blood Gas Routine 09/26/20 04:57 Piperacillin Sodium/Tazobactam [Zosyn] 3.375 gm IV .STK-MED ONE 09/26/20 10:03 XR chest 1V Stat 09/26/20 10:10 ABG (RT) ONCE 09/26/20 10:15 Arterial Blood Gas Routine 09/26/20 10:26 Piperacillin Sodium/Tazobactam [Zosyn] 3.375 gm IV .STK-MED ONE 09/26/20 11:15 Midazolam HCl/NS [Versed] 50 mg in 50 ml IVCONT 2 mg/hr 09/26/20 12:00 Doxycycline Hyclate [Vibramycin] 100 mg IV .STK-MED ONE Doxycycline Hyclate [Vibramycin] 100 mg 0.9 % Sodium Chloride [Ns] 250 ml IV Q12H 09/26/20 14:00 vancomycin HCL 750 mg vancomycin HCL 500 mg 0.9 % Sodium Chloride [Ns] 250 ml IV Q12H 09/26/20 15:00 Sputum Cult + Gram stain Stat 09/26/20 15:30 Piperacillin Sodium/Tazobactam [Zosyn] 3.375 gm IV .STK-MED ONE 09/26/20 18:51 Non-behavioral order assessment ONCE 09/26/20 20:10 Piperacillin Sodium/Tazobactam [Zosyn] 3.375 gm IV .STK-MED ONE 09/26/20 23:52 Doxycycline Hyclate [Vibramycin] 100 mg IV .STK-MED ONE 09/27/20 02:52 Piperacillin Sodium/Tazobactam [Zosyn] 3.375 gm IV .STK-MED ONE 09/27/20 05:27 Basic Metabolic Panel Routine Complete Blood Count Auto Diff Routine Magnesium Routine Phosphorus Routine SLIDE REVIEW Routine Venous Blood Gas Routine 09/27/20 08:50 Calcium Gluconate/NaCl,Iso-Osm [Calcium Gluconate] 2 gm in 100 ml IV ONCE Furosemide [Lasix] 40 mg IVPUSH ONCE ONE Potassium Phosphate [KPhos] 30 mmol 0.9 % Sodium Chloride [Ns] 500 ml IV ONCE 09/27/20 08:52 Famotidine/PF [Pepcid/PF] 20 mg IVPUSH ONCE ONE 09/27/20 09:00 Albumin Human 25 % [Kedbumin 25 %] 100 ml IV Q6H 09/27/20 12:57 Doxycycline Hyclate [Vibramycin] 100 mg IV .STK-MED ONE 09/27/20 Lunch Tube Feeding Diet 09/27/20 17:54 Basic Metabolic Panel Routine 09/27/20 19:02 Furosemide [Lasix] 40 mg IVPUSH ONCE ONE 09/27/20 19:06 Potassium Chloride/H20 20 meq in 100 ml IV ONCE 09/27/20 23:12 Furosemide [Lasix] 40 mg .ROUTE .STK-MED ONE 09/27/20 23:31 Furosemide [Lasix] 40 mg IVPUSH ONCE ONE 09/27/20 23:44 Doxycycline Hyclate [Vibramycin] 100 mg IV .STK-MED ONE 09/28/20 XR abdomen 1V Stat XR chest 1V Stat 09/28/20 05:02 Acetaminophen Oral Liquid [Tylenol Oral Liquid] 650 mg OG-TUBE Q6H PRN Midazolam HCl/PF [Versed] 2 mg IVPUSH ONCE ONE 09/28/20 05:27 Complete Blood Count Auto Diff DAILY@0600 Comprehensive Met. Panel DAILY@0600 Magnesium DAILY Phosphorus DAILY Venous Blood Gas DAILY 09/28/20 08:11 Potassium Phosphate [KPhos] 30 mmol 0.9 % Sodium Chloride [Ns] 500 ml IV ONCE 09/28/20 08:56 Extubate NOW 09/28/20 09:00 Famotidine/PF [Pepcid/PF] 20 mg IVPUSH DAILY 09/28/20 10:33 Metoprolol Tartrate [Lopressor] 5 mg IVPUSH Q6H PRN 09/28/20 10:44 Doxycycline Hyclate [Vibramycin] 100 mg IV .STK-MED ONE 09/28/20 16:53 propofoL [Diprivan] 200 mg IVPUSH .STK-MED ONE 09/28/20 17:01 Naloxone HCl [Narcan] 0.2 mg IVPUSH Q2M PRN Norepinephrine Bitartrate/NS [Levophed] 8 mg in 250 ml IVCONT As directed propofoL [Diprivan] 100 mg IVPUSH ONCE ONE 09/28/20 17:15 fentaNYL citrate/NS [Sublimaze/NS] 1,000 mcg in 100 ml IVCONT Per Protocol mcg/hr 09/28/20 19:00 NON-Behavioral Restraint Q24H 09/28/20 19:12 Non-behavioral order assessment ONCE 09/28/20 19:15 propofoL [Diprivan] 1,000 mg in 100 ml IVCONT Per Protocol mcg/kg/min 09/28/20 21:00 Valproic Acid [Depakene] 250 mg PO BID 09/28/20 23:00 Divalproex Sodium Sprinkles [Depakote Sprinkles] 250 mg PO BID 09/28/20 23:31 Doxycycline Hyclate [Vibramycin] 100 mg IV .STK-MED ONE 09/29/20 01:06 Vent Settings Q4HR 09/29/20 01:12 Vent Settings Q4HR 09/29/20 05:25 Albumin Level Routine Basic Metabolic Panel DAILY@0600 Complete Blood Count Auto Diff DAILY@0600 Magnesium DAILY Phosphorus DAILY Venous Blood Gas DAILY 09/29/20 09:00 Famotidine/PF [Pepcid/PF] 20 mg IVPUSH DAILY 09/29/20 11:21 Doxycycline Hyclate [Vibramycin] 100 mg IV .STK-MED ONE 09/29/20 17:00 Ampicillin Sodium/Sulbactam Na [Unasyn] 3 gm 0.9 % Sodium Chloride [Ns] 100 ml IV Q6H 09/29/20 17:27 Ampicillin Sodium/Sulbactam Na [Unasyn] 3 gm .ROUTE .STK-MED ONE 09/29/20 18:56 Lactulose [Chronulac] 20 gm OG-TUBE ONCE ONE 09/29/20 19:00 Restraint - Non Violent 24 HOURS 09/29/20 23:43 Ampicillin Sodium/Sulbactam Na [Unasyn] 3 gm .ROUTE .STK-MED ONE 09/30/20 04:38 Ampicillin Sodium/Sulbactam Na [Unasyn] 3 gm .ROUTE .STK-MED ONE 09/30/20 06:10 Albumin Level Routine Basic Metabolic Panel DAILY@0600 Complete Blood Count Auto Diff DAILY@0600 Magnesium DAILY Phosphorus DAILY Venous Blood Gas DAILY 09/30/20 10:50 Ampicillin Sodium/Sulbactam Na [Unasyn] 3 gm .ROUTE .STK-MED ONE 09/30/20 18:37 Ampicillin Sodium/Sulbactam Na [Unasyn] 3 gm .ROUTE .STK-MED ONE 09/30/20 18:53 NON-Behavioral Restraint Q24H Non-behavioral order assessment ONCE 09/30/20 19:54 XR chest 1V Stat 09/30/20 19:59 Midazolam HCl/PF [Versed] 2 mg IVPUSH ONCE ONE 09/30/20 21:00 Lactulose [Chronulac] 30 gm PO BID 10/01/20 02:59 Midazolam HCl/PF [Versed] 2 mg IVPUSH ONCE ONE 10/01/20 05:54 Albumin Level Routine Basic Metabolic Panel DAILY@0600 Complete Blood Count Auto Diff DAILY@0600 Magnesium DAILY Phosphorus DAILY Venous Blood Gas DAILY 10/01/20 05:57 Ampicillin Sodium/Sulbactam Na [Unasyn] 3 gm .ROUTE .STK-MED ONE 10/01/20 11:30 Ampicillin Sodium/Sulbactam Na [Unasyn] 3 gm .ROUTE .STK-MED ONE 10/01/20 17:09 Ampicillin Sodium/Sulbactam Na [Unasyn] 3 gm .ROUTE .STK-MED ONE 10/01/20 18:55 NON-Behavioral Restraint Q24H 10/01/20 20:18 Non-behavioral order assessment ONCE 10/01/20 22:22 Ampicillin Sodium/Sulbactam Na [Unasyn] 3 gm .ROUTE .STK-MED ONE 10/02/20 XR chest 1V Stat XR chest 1V Stat 10/02/20 04:59 Ampicillin Sodium/Sulbactam Na [Unasyn] 3 gm .ROUTE .STK-MED ONE 10/02/20 05:18 Venous Blood Gas DAILY 10/02/20 05:19 Albumin Level Routine Basic Metabolic Panel DAILY@0600 Complete Blood Count Auto Diff DAILY@0600 Magnesium DAILY Phosphorus DAILY SLIDE REVIEW Routine 10/02/20 07:25 Potassium Phosphate [KPhos] 30 mmol 0.9 % Sodium Chloride [Ns] 500 ml IV ONCE 10/02/20 10:14 Ampicillin Sodium/Sulbactam Na [Unasyn] 3 gm .ROUTE .STK-MED ONE 10/02/20 11:00 Valproic Acid (as Sodium Salt) [Depacon] 250 mg Dextrose 5 % [D5w] 50 ml IV Q12H 10/02/20 17:51 Ampicillin Sodium/Sulbactam Na [Unasyn] 3 gm .ROUTE .STK-MED ONE 10/02/20 18:50 NON-Behavioral Restraint Q24H 10/02/20 19:57 Non-behavioral order assessment ONCE 10/02/20 22:06 Ampicillin Sodium/Sulbactam Na [Unasyn] 3 gm .ROUTE .STK-MED ONE 10/03/20 05:13 Ampicillin Sodium/Sulbactam Na [Unasyn] 3 gm .ROUTE .STK-MED ONE 10/03/20 05:17 Albumin Level Routine Basic Metabolic Panel DAILY@0600 Complete Blood Count Auto Diff DAILY@0600 Magnesium DAILY Phosphorus DAILY SLIDE REVIEW Routine Venous Blood Gas DAILY 10/03/20 06:19 Dextrose 50 % [D50] 25 gm .ROUTE .STK-MED ONE 10/03/20 06:23 Dextrose 50 % [D50] 25 gm IVPUSH ONCE ONE 10/03/20 06:30 Dextrose 10 % [D10] 1,000 ml IVCONT 50 mls/hr 10/03/20 08:56 Potassium Phosphate [KPhos] 30 mmol 0.9 % Sodium Chloride [Ns] 500 ml IV ONCE 10/03/20 09:00 Albumin Human 25 % [Kedbumin 25 %] 100 ml IV Q6H 10/03/20 10:58 Ampicillin Sodium/Sulbactam Na [Unasyn] 3 gm .ROUTE .STK-MED ONE 10/03/20 11:15 Sodium Phosphate,Bleckley-Dibasic [Fleet Enema] 133 ml OH ONCE ONE 10/03/20 12:00 Metoprolol Tartrate [Lopressor] 5 mg 0.9 % Sodium Chloride [Ns] 50 ml IV Q6H 10/03/20 15:37 Ampicillin Sodium/Sulbactam Na [Unasyn] 3 gm .ROUTE .STK-MED ONE 10/03/20 19:20 NON-Behavioral Restraint Q24H Non-behavioral order assessment ONCE 10/03/20 23:00 fentaNYL citrate/NS [Sublimaze/NS] 1,000 mcg in 100 ml IVCONT Per Protocol mcg/hr 10/03/20 23:09 Ampicillin Sodium/Sulbactam Na [Unasyn] 3 gm .ROUTE .STK-MED ONE 10/04/20 04:07 Ampicillin Sodium/Sulbactam Na [Unasyn] 3 gm .ROUTE .STK-MED ONE 10/04/20 05:34 Albumin Level Routine Basic Metabolic Panel DAILY@0600 Complete Blood Count Auto Diff DAILY@0600 Magnesium DAILY Phosphorus DAILY SLIDE REVIEW Routine Venous Blood Gas DAILY 10/04/20 06:56 Sputum Cult + Gram stain Stat Urine Culture Stat 10/04/20 10:17 Ampicillin Sodium/Sulbactam Na [Unasyn] 3 gm .ROUTE .STK-MED ONE 10/04/20 12:10 Lactulose [Chronulac] 30 gm OH BID 10/04/20 13:12 SARS COV2 IgG Routine 10/04/20 14:13 SARS-CoV2/FLU/RSV Stat 10/04/20 17:14 Ampicillin Sodium/Sulbactam Na [Unasyn] 3 gm .ROUTE .STK-MED ONE 10/04/20 18:20 NON-Behavioral Restraint Q24H 10/04/20 21:00 Blood Culture X2 [BC] Stat 10/04/20 22:22 Ampicillin Sodium/Sulbactam Na [Unasyn] 3 gm .ROUTE .STK-MED ONE 10/05/20 05:03 Ampicillin Sodium/Sulbactam Na [Unasyn] 3 gm .ROUTE .STK-MED ONE 10/05/20 05:42 Basic Metabolic Panel Routine Complete Blood Count Auto Diff Routine Magnesium Routine Phosphorus Routine Venous Blood Gas Routine 10/05/20 06:00 Complete Blood Count Auto Diff Routine 10/05/20 11:21 Ampicillin Sodium/Sulbactam Na [Unasyn] 3 gm .ROUTE .STK-MED ONE 10/05/20 13:13 Non-behavioral order assessment ONCE 10/05/20 Lunch NPO Diet 10/05/20 16:05 Communication Order NOW 10/05/20 16:14 Ampicillin Sodium/Sulbactam Na [Unasyn] 3 gm .ROUTE .STK-MED ONE 10/05/20 16:40 Type and Screen Routine Prothrombin Time INR Routine 10/05/20 17:30 Potassium Chloride/H20 40 meq in 100 ml IV ONCE 10/05/20 20:00 Potassium Chloride/H20 40 meq in 100 ml IV ONCE@2000 10/06/20 CT abdomen pelvis wo con Stat 10/06/20 05:59 Basic Metabolic Panel Fasting Stat Venous Blood Gas Routine 10/06/20 13:56 ceFAZolin Sodium/Dextrose,Iso [Ancef] 2 gm in 50 ml IV PREOP 10/06/20 14:49 Lidocaine HCl 2 % MPF [Xylocaine 2 % MPF] 5 ml .ROUTE .STK-MED ONE propofoL [Diprivan] 200 mg IVPUSH .STK-MED ONE 10/06/20 14:51 fentaNYL citrate/PF [Sublimaze] 2,500 mcg .ROUTE .STK-MED ONE 10/06/20 15:09 Rocuronium [place] [Zemuron] 100 mg IV .STK-MED ONE 10/06/20 15:11 Phenylephrine HCL 1,000 mcg IVPUSH .STK-MED ONE 10/06/20 15:29 ceFAZolin Sodium/Dextrose,Iso [Ancef] 2 gm in 50 ml .ROUTE As directed 10/06/20 15:30 dexAMETHasone sod phosphate [Decadron] 4 mg .ROUTE .STK-MED ONE ondansetron HCL [Zofran] 4 mg .ROUTE .STK-MED ONE 10/06/20 15:44 Sugammadex Sodium [Bridion] 200 mg IVPUSH .STK-MED ONE 10/06/20 15:47 HYDROmorphone HCl [Dilaudid] 2 mg .ROUTE .STK-MED ONE 10/06/20 16:52 Rocuronium [place] [Zemuron] 50 mg .ROUTE .STK-MED ONE propofoL [Diprivan] 1,000 mg in 100 ml IVCONT As directed 10/06/20 17:30 XR chest 1V Stat 10/06/20 17:42 Rocuronium [place] [Zemuron] 30 mg IVPUSH ONCE ONE fentaNYL citrate/PF [Sublimaze] 200 mcg IVPUSH ONCE ONE 10/06/20 17:58 Glucose, Whole Blood Routine 10/06/20 21:25 NON-Behavioral Restraint Q24H Non-behavioral order assessment ONCE 10/07/20 06:06 Complete Blood Count Auto Diff Routine Comprehensive Met. Panel Routine Venous Blood Gas Routine 10/07/20 07:30 CT abdomen wo con Urgent 10/07/20 10:00 Valproic Acid (as Sodium Salt) [Depakene Liquid] 250 mg G-TUBE BID 10/07/20 10:18 Barium Sulfate Oral (Genwords) [Readi-Cat 2 Smoothie (Genwords)] 450 ml PO ONCE ONE 10/07/20 13:18 fentaNYL citrate/PF [Sublimaze] 200 mcg IVPUSH ONCE ONE 10/07/20 14:00 Heparin Sodium,Porcine 5,000 unit SUBCUT Q8H Valproic Acid (as Sodium Salt) [Depakene Liquid] 250 mg G-TUBE Q12H 10/07/20 14:30 Sodium Phosphate,Bleckley-Dibasic [Fleet Enema] 133 ml OH ONCE ONE 10/07/20 20:00 NON-Behavioral Restraint Q24H 10/07/20 20:58 fentaNYL citrate/NS [Sublimaze/NS] 1,000 mcg in 100 ml IVCONT 100 mcg/hr 10/07/20 21:00 cefTRIAXone sodium [Rocephin] 1 gm 0.9 % Sodium Chloride [Ns] 50 ml IV Q24H 10/07/20 21:27 cefTRIAXone sodium [Rocephin] 1 gm .ROUTE .STK-MED ONE 10/08/20 05:15 Complete Blood Count Auto Diff Routine Comprehensive Met. Panel Routine Venous Blood Gas Routine 10/08/20 Breakfast NPO Diet 10/08/20 10:33 fentaNYL citrate/PF [Sublimaze] 2,500 mcg .ROUTE .STK-MED ONE propofoL [Diprivan] 200 mg IVPUSH .STK-MED ONE 10/08/20 11:22 ceFAZolin Sodium/Dextrose,Iso [Ancef] 2 gm in 50 ml .ROUTE As directed 10/08/20 11:29 Phenylephrine HCL 1,000 mcg IVPUSH .STK-MED ONE dexAMETHasone sod phosphate [Decadron] 4 mg .ROUTE .STK-MED ONE ondansetron HCL [Zofran] 4 mg .ROUTE .STK-MED ONE 10/08/20 11:41 Phenylephrine HCL 10 mg .ROUTE .STK-MED ONE 10/08/20 13:06 ceFAZolin Sodium/Dextrose,Iso [Ancef] 2 gm in 50 ml IV PREOP 10/08/20 14:15 fentaNYL citrate/NS [Sublimaze/NS] 1,000 mcg in 100 ml IVCONT 50 mcg/hr 10/08/20 14:35 LORazepam [Ativan] 2 mg .ROUTE .STK-MED ONE 10/08/20 14:45 LORazepam [Ativan] 1 mg IVPUSH ONCE ONE 10/08/20 14:55 LORazepam [Ativan] 1 mg IVPUSH Q6H PRN 10/08/20 16:22 HYDROmorphone HCl [Dilaudid] 1 mg IVPUSH Q1H PRN 10/08/20 16:23 HYDROmorphone HCl [Dilaudid] 2 mg IVPUSH ONCE STA 10/08/20 16:24 HYDROmorphone HCl [Dilaudid] 2 mg IVPUSH Q1H PRN 10/08/20 16:44 Potassium Chloride Packet [Klor-Con Packet] 40 meq G-TUBE ONCE STA 10/08/20 20:46 cefTRIAXone sodium [Rocephin] 1 gm .ROUTE .STK-MED ONE 10/08/20 21:00 Metoprolol Tartrate [Lopressor] 25 mg PO BID 10/09/20 05:45 Complete Blood Count Auto Diff Routine Comprehensive Met. Panel Routine Venous Blood Gas Routine 10/09/20 07:00 fentaNYL citrate/NS [Sublimaze/NS] 1,000 mcg in 100 ml IVCONT 25 mcg/hr 10/09/20 09:00 Famotidine [Pepcid] 20 mg PO DAILY 10/09/20 Breakfast Tube Feeding Diet 10/09/20 10:18 HYDROmorphone HCl [Dilaudid] 0.5 mg IVPUSH Q1H PRN HYDROmorphone HCl [Dilaudid] 1 mg IVPUSH Q1H PRN 10/09/20 10:19 LORazepam [Ativan] 1 mg IVPUSH Q8H PRN 10/09/20 10:32 Transfer Order Routine 10/09/20 21:02 cefTRIAXone sodium [Rocephin] 1 gm .ROUTE .STK-MED ONE 10/10/20 20:23 cefTRIAXone sodium [Rocephin] 1 gm .ROUTE .STK-MED ONE 10/11/20 21:21 cefTRIAXone sodium [Rocephin] 1 gm .ROUTE .STK-MED ONE 10/12/20 10:19 Valproic Acid (as Sodium Salt) [Depakene Liquid] 250 mg PO ONCE ONE 10/12/20 22:22 cefTRIAXone sodium [Rocephin] 1 gm .ROUTE .STK-MED ONE 10/13/20 20:20 cefTRIAXone sodium [Rocephin] 1 gm .ROUTE .[facility] ONE Laboratory Last Values WBC 11.5 X10*3/uL (4.8-10.8) H 10/09/20 05:45 RBC 2.61 X10*6/uL (4.60-5.80) L 10/09/20 05:45 Hgb 7.8 g/dl (14.0-18.0) L 10/09/20 05:45 Hct 24.5 % (42-52) L 10/09/20 05:45 MCV 93.9 fL (80-98) 10/09/20 05:45 MCH 29.9 pg (27.0-33.0) 10/09/20 05:45 MCHC 31.8 g/dl (31.0-36.0) 10/09/20 05:45 RDW 13.2 % (11.0-16.0) 10/09/20 05:45 Plt Count 478 X10*3/uL (160-400) H 10/09/20 05:45 MPV 11.1 fL (9.4-12.4) 10/09/20 05:45 Immature Gran % (Auto) 1.2 % (0.0-0.4) H 10/09/20 05:45 Neut % (Auto) 69.5 % (45-73) 10/09/20 05:45 Lymph % (Auto) 16.8 % (20-40) L 10/09/20 05:45 [place] % (Auto) 11.6 % (2-11) H 10/09/20 05:45 Eos % (Auto) 0.3 % (0-4) 10/09/20 05:45 Baso % (Auto) 0.6 % (0-2) 10/09/20 05:45 Lymph # (Auto) 1.9 X10*3/uL (1.2-4.9) 10/09/20 05:45 [place] # (Auto) 1.3 X10*3/uL (0.1-1.2) H 10/09/20 05:45 Eos # (Auto) 0.0 X10*3/uL (0.0-0.4) 10/09/20 05:45 Baso # (Auto) 0.1 X10*3/uL (0.0-0.2) 10/09/20 05:45 Abs Immat Gran (auto) 0.14 X10*3/uL (0.00-0.03) H 10/09/20 05:45 Absolute Neuts (auto) 8.0 X10*3/uL (2.0-8.3) 10/09/20 05:45 Absolute Nucleated RBC 0.000 X10*3/uL (0.0-0.012) 10/09/20 05:45 Nucleated RBC % (auto) 0.0 /100WBC (0.0-0.2) 10/09/20 05:45 Neutrophils % (Manual) 69 % (45-73) 09/23/20 10:41 Band Neutrophils % 19 % (3-5) H 09/23/20 10:41 Lymphocytes % (Manual) 9 % (20-40) L 09/23/20 10:41 Monocytes % (Manual) 2 % (2-11) 09/23/20 10:41 Metamyelocytes % 1 % 09/23/20 10:41 Abs Neuts (Manual) 14.9 X10*3/uL (2.2-7.9) H 09/23/20 10:41 Lymphocytes # (Manual) 1.5 X10*3/uL (0.6-4.8) 09/23/20 10:41 Monocytes # (Manual) 0.3 X10*3/uL (0.0-1.2) 09/23/20 10:41 Metamyelocytes # 0.2 X10*3/uL 09/23/20 10:41 Platelet Estimate SLIGHTLY DECREASED (NORMAL) 09/23/20 10:41 Plt Morphology Comment NORMAL 09/23/20 10:41 RBC Morphology NOTED 09/23/20 10:41 Hypochromasia 1+ 09/23/20 10:41 Smear Tech's Comments VERIFIED 10/04/20 05:34 PT 13.7 SEC (10.8-13.0) H 10/05/20 16:40 INR 1.2 (0.9-1.1) H 10/05/20 16:40 D-Dimer 358 NG/ML 09/25/20 05:20 ABG pH 7.44 (7.35-7.45) 09/26/20 10:15 ABG pCO2 29 mmhg (32-45) L 09/26/20 10:15 ABG pO2 > 450 mmhg (83-108) H 09/26/20 10:15 ABG HCO3 19 mmol/l (22-26) L 09/26/20 10:15 ABG O2 Saturation 98.8 % 09/26/20 10:15 ABG Base Excess -4.3 09/26/20 10:15 VBG pH 7.48 (7.32-7.43) H 10/09/20 05:45 VBG pCO2 38 mmhg 10/09/20 05:45 VBG pO2 45 mmhg 10/09/20 05:45 VBG HCO3 28 mmol/L 10/09/20 05:45 VBG O2 Saturation 83.6 % 10/09/20 05:45 VBG Base Excess 4.0 mmol/L 10/09/20 05:45 Oxygen Given 100% 09/26/20 10:15 Sodium 137 mmol/L (135-145) 10/09/20 05:45 Potassium 3.6 mmol/l (3.3-5.1) 10/09/20 05:45 Chloride 102 mmol/L (96-108) 10/09/20 05:45 Carbon Dioxide 25 mmol/L (22-29) 10/09/20 05:45 Anion Gap 14 (12-20) 10/09/20 05:45 BUN 5 mg/dL (9-16) L 10/09/20 05:45 Creatinine 0.51 mg/dL (0.5-1.4) 10/09/20 05:45 Estim Creat Clear Calc 102.7 10/09/20 05:45 Estimated GFR > 60 10/09/20 05:45 POC Glucose 110 mg/dL (60-115) 10/06/20 17:58 Random Glucose 73 mg/dL (60-115) 10/09/20 05:45 Fasting Glucose 109 mg/dL (60-99) H 10/06/20 05:59 Lactic Acid 0.7 mmol/L (0.5-2.0) 09/24/20 05:20 Lactic Acid Fup @ 2Hr 1.1 mmol/L (0.5-2.0) 09/23/20 10:41 Calcium 7.9 mg/dL (8.4-10.2) L 10/09/20 05:45 Phosphorus 2.7 mg/dL (2.7-4.5) 10/05/20 05:42 Magnesium 1.8 mg/dL (1.6-2.6) 10/05/20 05:42 Ferritin 608 ng/mL (20-250) H 09/25/20 05:20 Direct Bilirubin 0.2 mg/dL (0.0-0.5) 09/22/20 21:29 Total Bilirubin 0.7 mg/dL (0.0-1.0) 10/09/20 05:45 AST 21 U/L (5-37) 10/09/20 05:45 ALT 24 U/L (0-40) 10/09/20 05:45 Alkaline Phosphatase 67 U/L (39-117) 10/09/20 05:45 Lactate Dehydrogenase 361 U/L (118-273) H 09/25/20 05:20 Total Creatine Kinase 831 U/L (38-174) H D 09/25/20 05:20 C-Reactive Protein 28.94 mg/dL (< or = 0.50) H 09/24/20 05:20 Total Protein 5.5 g/dL (6.5-8.0) L 10/09/20 05:45 Albumin 3.2 g/dL (3.5-5.0) L 10/09/20 05:45 Lipase 39 U/L (8-78) 09/22/20 21:29 Procalcitonin 1.88 ng/mL 09/25/20 05:20 Urine Color YELLOW 09/22/20 21:59 Urine Appearance HAZY 09/22/20 21:59 Urine pH 6.0 (5.0-8.0) 09/22/20 21:59 Ur Specific [place] 1.025 (1.005-1.025) 09/22/20 21:59 Urine Protein NEG MG/DL (NEG-TRACE) 09/22/20 21:59 Urine Glucose (UA) NEG MG/DL (NEG) 09/22/20 21:59 Urine Ketones NEG MG/DL (NEG) 09/22/20 21:59 Urine Blood 1+ (NEG) H 09/22/20 21:59 Urine Nitrite NEG (NEG) 09/22/20 21:59 Ur Leukocyte Esterase TRACE (NEG) H 09/22/20 21:59 Urine RBC 1-4 /HPF (0) 09/22/20 21:59 Urine WBC 1-4 /HPF (0-4) 09/22/20 21:59 Ur Squamous Epith Cells NONE /LPF 09/22/20 21:59 Urine Bacteria NONE /LPF 09/22/20 21:59 Urine Mucus 2+ /LPF 09/22/20 21:59 Nasal Screen MRSA (PCR) NEGATIVE (Negative) 09/24/20 15:05 Nasal S. aureus Screen NEGATIVE (Negative) 09/24/20 15:05 Nasal MRSA/S.aureus Interp SEE NOTE 09/24/20 15:05 Vancomycin Trough 8.9 mcg/mL (10.0-20.0) L 09/26/20 01:01 Respiratory Panel Daniel See Note 09/23/20 10:31 Adenovirus (Rapid PCR) Not Detected (Not Detect.) 09/23/20 10:31 B.pert (TEM-PCR) Not Detected (Not Detect.) 09/23/20 10:31 B.parapertussis DNA PCR Not Detected (Not Detect.) 09/23/20 10:31 C. pneumoniae DNA (PCR) Not Detected (Not Detect.) 09/23/20 10:31 Coronavirus (PCR) NEGATIVE (Negative) 10/04/20 14:13 Coronavirus OC43 (PCR) Not Detected (Not Detect.) 09/23/20 10:31 Coronavirus HKU1 (PCR) Not Detected (Not Detect.) 09/23/20 10:31 Coronavirus 229E (PCR) Not Detected (Not Detect.) 09/23/20 10:31 COVID-19 (KATE) Negative (Negative) 09/24/20 22:29 COVID-19 Clin Com See Note 09/24/20 22:29 Coronavirus NL63 (PCR) Not Detected (Not Detect.) 09/23/20 10:31 Human Metapneumovir PCR Not Detected (Not Detect.) 09/23/20 10:31 Influenza A (RT-PCR) Not Detected (Not Detect.) 09/23/20 10:31 Influenza Type A (PCR) NEGATIVE (Negative) 10/04/20 14:13 Influenza B (RT-PCR) Not Detected (Not Detect.) 09/23/20 10:31 Influenza Type B (PCR) NEGATIVE (Negative) 10/04/20 14:13 Ur L.pneumophila Ag Not Detected (Not Detected) 09/23/20 10:31 M. pneumoniae (PCR) Not Detected (Not Detect.) 09/23/20 10:31 Parainfluenza 1 (PCR) Not Detected (Not Detect.) 09/23/20 10:31 Parainfluenza 2 (PCR) Not Detected (Not Detect.) 09/23/20 10:31 Parainfluenza 3 (PCR) Not Detected (Not Detect.) 09/23/20 10:31 Parainfluenza 4 (PCR) Not Detected (Not Detect.) 09/23/20 10:31 RSV (PCR) Not Detected (Not Detect.) 09/23/20 10:31 RSV RNA Qual (PCR) NEGATIVE (Negative) 10/04/20 14:13 Entero/Rhino (PCR) Not Detected (Not Detect.) 09/23/20 10:31 SARS-CoV-2 RNA (RT-PCR) Not Detected (Not Detect.) 09/23/20 10:31 SARS-CoV-2 IgG Ab Negative (Negative) 10/04/20 13:12 Ur Strep pneumoniae Ag Not Detected (Not Detected) 09/23/20 10:31 Blood Type O Positive 10/05/20 16:40 Antibody Screen NEGATIVE 10/05/20 16:40 Discharge Plan Discharge Patient Disposition: Xfer Inpatient Rehab Fac Referrals: Bonifacio Fletcher MD [Primary Care Provider] - Discharge Medications: New acetaminophen 650 mg Suppository 650 mg OH Q6H PRN (Reason: Fever) Qty: 30 RF: 0 acetaminophen 650 mg/20.3 mL Solution 650 mg OG-TUBE Q6H PRN (Reason: Pain And Fever) Qty: 240 RF: 0 fluoxetine 20 mg/5 mL (4 mg/mL) Solution 40 mg G-tube DAILY Qty: 240 RF: 0 lactulose 20 gram/30 mL Solution 30 g G-tube BID PRN (Reason: constipation) Qty: 240 RF: 0 valproic acid (as sodium salt) 250 mg/5 mL (5 mL) Solution 500 mg G-tube BEDTIME Qty: 240 RF: 0 valproic acid (as sodium salt) 250 mg/5 mL (5 mL) Solution 250 mg PO DAILY Qty: 240 RF: 0 bisacodyl [Gentle Laxative (bisacodyl)] 10 mg Suppository 10 mg OH DAILY PRN (Reason: Constipation) Qty: 3 RF: 0 chlorhexidine gluconate 0.12 % Mouthwash 15 ml buccal TID Qty: 240 RF: 0 famotidine 20 mg Tablet 20 mg G-tube DAILY Qty: 240 RF: 0 nystatin 100,000 unit/gram Powder 1 appl topical BID Qty: 1 RF: 0 metoprolol tartrate 25 mg Tablet 25 mg G-tube BID Qty: 240 RF: 0 Continued alendronate 70 mg/75 mL solution 70 mg PO Q7D RF: 0 Discontinued divalproex 500 mg tablet extended release 24 hr 500 mg PO BEDTIME RF: 0 omeprazole 20 mg capsule,delayed release(DR/EC) 20 mg PO BID@0630,1630 RF: 0 fluvoxamine 50 mg tablet 1 tab PO BEDTIME RF: 0 divalproex 250 mg tablet extended release 24 hr 250 mg PO DAILY RF: 0 fluoxetine 20 mg capsule 60 mg PO DAILY@0630 RF: 0 Discharge Orders: Discharge Order (Routine); Ordered 10/14/20 Ordered By: Juan C Esqueda Diet: other Activity on Discharge: As tolerated Visit Report Forms: Patient Portal Discharge page Care Plan Goals: Continue trach NG tube care, suction trach as needed Health Concerns: Continue current medication and reassess for escalation of antidepressant medication Plan of Treatment: Outpatient follow-up with primary care physician
[2020-10-14 13:00] VITALS: BP 132/64; PULSE 68; RESP 20; TEMP 36.5
[2020-10-14 13:05] LABS: COVID-19 Test Negative (Negative); IDNOW Serial# 9DD0AD1C
[2020-10-14 15:06] VITALS: BP 164/76; PULSE 100; RESP 19; TEMP 36.2; O2SAT 94
--- NOTE | 2020-10-14 15:22 | MHC.CM.PN ---
Patient has been medically cleared for dc to LTACH today.Patient will dc to [facility] in [place], [place] today at 6 PM, via ALS (new trach that may require suctioning during transport)[facility]. Patient's Guardian/Sister/Sharri at [phone] is aware of and in agreement with the dc plan.Second IMM addressed with Sharri and original is being mailed out certified letter to her and a copy has been placed on the chart.
[2020-10-14] MEDS: Enoxaparin Sodium 40 MG/0.4 ML SYRINGE SUBCUT (15:30)
[2020-10-14 17:13] LABS: Basophils Absolute Auto 0.1 X10*3/uL (0.0-0.2); Basophils Percent Auto 0.7 % (0-2); Eosinophils Percent Auto 0.2 % (0-4); Hematocrit 30.6 % (42-52); Hemoglobin 10.2 g/dl (14.0-18.0); Imm Gran Abs Auto 0.25 X10*3/uL (0.00-0.03); Imm Gran Pct Auto 1.3 % (0.0-0.4); Lymphocytes Absolute Auto 1.3 X10*3/uL (1.2-4.9); Lymphocytes Percent Auto 6.9 % (20-40); MANUAL DIFF FLAG SCAN; Mean Corpuscular HGB Conc 33.3 g/dl (31.0-36.0); Mean Corpuscular Hemoglobin 30.5 pg (27.0-33.0); Mean Corpuscular Volume 91.6 fL (80-98); Mean Platelet Volume 10.1 fL (9.4-12.4); Monocytes Percent Auto 10.8 % (2-11); Neutrophils Absolute Auto 15.1 X10*3/uL (2.0-8.3); Neutrophils Percent Auto 80.1 % (45-73); Platelet Count 767 X10*3/uL (160-400); Red Blood Count 3.34 X10*6/uL (4.60-5.80); SCAN SMEAR FLAG 1; White Blood Count 18.9 X10*3/uL (4.8-10.8)
[2020-10-14 17:37] LABS: SLIDE REVIEW VERIFIED
--- NOTE | 2020-10-14 17:45 | PM.EVENT ---
Event Note Date of Service: 10/14/20 Event Note: Patient was scheduled to be discharged to why brought today a repeat CBC revealed elevated WBC count and urine noted to be cloudy therefore will cancel discharge obtain urinalysis and culture follow report and treat with appropriate antibiotic patient was on antibiotic up until today, follow CBC and clinical course.
[2020-10-14 18:55] LABS: Glucose Urine UA NEG (NEG); Leukocyte Esterase Urine NEG (NEG); Nitrite Urine NEG (NEG); Urine Blood 3+ (NEG); Urine Ketones 5 MG/DL (NEG); Urine Protein 2+ MG/DL (NEG-TRACE)
[2020-10-14 18:56] LABS: Appearance Urine CLOUDY; Color Urine DARK YELLOW
[2020-10-14 19:01] VITALS: BP 134/68; PULSE 80; RESP 19; TEMP 36.4; O2SAT 97
[2020-10-14 19:11] LABS: Bacteria Urine 1+ /LPF; RBC Urine 30-49 /HPF (0); WBC Urine 0 /HPF (0-4)
[2020-10-14 23:43] VITALS: BP 128/90; PULSE 130; RESP 22; TEMP 39.4; O2SAT 93
--- NOTE | 2020-10-14 23:55 | PC.NURSE ---
Addendum entered by Carolyn Izaguirre RN 10/14/20 23:57: Discharge plan to [facility] at 18:[address]queda. Blood work done prior the discharge, WBC 18.9. Urinalysis and urine culture ordered,urine sent. Urine cloudy in the go and DR Esqueda aware. Original Note: Today patient was scheduled for discharge at 18:00
[2020-10-15] VITALS (9 sets, daily range): BP systolic 106–127; BP diastolic 54–69; PULSE 102–116; RESP 20–34; TEMP 36.2–39.8; O2SAT 93–99
--- NOTE | 2020-10-15 | XR_ITS ---
EXAMINATION: XR CHEST CLINICAL INFORMATION: Fever. COMPARISON: Chest 10/06/2020 TECHNIQUE: Frontal view of the chest was obtained. FINDINGS: The lungs are well-expanded. Streaky opacities seen in both lungs have significantly improved. Have significantly improved. The heart size and pulmonary vascularity is normal. Tracheostomy tube is stable. Right jugular central line and enteric tube have been removed. No gross bony abnormality. XR/XR chest 1V IMPRESSION: Unremarkable examination.
--- NOTE | 2020-10-15 00:02 | PC.NURSE ---
Received phone called from [facility] Liaison at 17:15 today requesting following details: vaccination record( not able to find), date the go cath was placed( 09/23/20; trach info( Portex 8-cuffed done on ); last BM ,results of the last CBC [facility] was notified about discharge being cancelled.
[2020-10-15] MEDS: Acetaminophen Supp 650 MG SUPP.RECT PR ×2 (00:19→19:52)
[2020-10-15] MEDS: Lactated Ringers 1,000 ML 80 ML IVCONT ×2 (00:54→16:16)
[2020-10-15 01:33] LABS: Basophils Absolute Auto 0.1 X10*3/uL (0.0-0.2); Basophils Percent Auto 0.6 % (0-2); Eosinophils Percent Auto 0.1 % (0-4); Hematocrit 33.1 % (42-52); Hemoglobin 10.8 g/dl (14.0-18.0); Imm Gran Pct Auto 1.5 % (0.0-0.4); Lymphocytes Absolute Auto 1.8 X10*3/uL (1.2-4.9); Lymphocytes Percent Auto 9.3 % (20-40); MANUAL DIFF FLAG SCAN; Mean Corpuscular HGB Conc 32.6 g/dl (31.0-36.0); Mean Corpuscular Hemoglobin 30.2 pg (27.0-33.0); Mean Corpuscular Volume 92.5 fL (80-98); Mean Platelet Volume 10.7 fL (9.4-12.4); Monocytes Absolute Auto 2.2 X10*3/uL (0.1-1.2); Monocytes Percent Auto 11.5 % (2-11); Neutrophils Absolute Auto 14.9 X10*3/uL (2.0-8.3); Platelet Count 842 X10*3/uL (160-400); Red Blood Count 3.58 X10*6/uL (4.60-5.80); Red Cell Distribution Width 13.9 % (11.0-16.0); SCAN SMEAR FLAG 1; White Blood Count 19.4 X10*3/uL (4.8-10.8)
[2020-10-15] MEDS: cefEPime HCl 1 GM in 0.9 % Sodium Chloride 50 ML IV ×3 (01:33→17:48)
[2020-10-15 01:51] LABS: Lactic Acid 1.3 mmol/L (0.5-2.0)
[2020-10-15 01:54] LABS: Anion Gap 19 (12-20); Blood Urea Nitrogen 33 mg/dL (9-16); Calcium 9.5 mg/dL (8.4-10.2); Carbon Dioxide 20 mmol/L (22-29); Chloride 105 mmol/L (96-108); Creatinine Clr Calc Pharmacy 70.9; Estimated Glomerular Filt Rate > 60; Glucose Random 134 mg/dL (60-115); Potassium 4.6 mmol/l (3.3-5.1); Sodium 139 mmol/L (135-145)
[2020-10-15] MEDS: vancomycin HCL 750 MG in 0.9 % Sodium Chloride 250 ML 176.67 MG IV ×2 (03:30→15:45)
[2020-10-15 06:34] LABS: Basophils Absolute Auto 0.2 X10*3/uL (0.0-0.2); Basophils Percent Auto 0.8 % (0-2); Eosinophils Percent Auto 0.1 % (0-4); Hematocrit 31.4 % (42-52); Hemoglobin 9.9 g/dl (14.0-18.0); Imm Gran Abs Auto 0.28 X10*3/uL (0.00-0.03); Imm Gran Pct Auto 1.4 % (0.0-0.4); Lymphocytes Percent Auto 10.3 % (20-40); MANUAL DIFF FLAG SCAN; Mean Corpuscular HGB Conc 31.5 g/dl (31.0-36.0); Mean Corpuscular Hemoglobin 29.2 pg (27.0-33.0); Mean Corpuscular Volume 92.6 fL (80-98); Mean Platelet Volume 10.8 fL (9.4-12.4); Monocytes Absolute Auto 3.1 X10*3/uL (0.1-1.2); Monocytes Percent Auto 15.7 % (2-11); Neutrophils Absolute Auto 13.9 X10*3/uL (2.0-8.3); Neutrophils Percent Auto 71.7 % (45-73); Platelet Count 719 X10*3/uL (160-400); Red Blood Count 3.39 X10*6/uL (4.60-5.80); SCAN SMEAR FLAG 1; White Blood Count 19.4 X10*3/uL (4.8-10.8)
[2020-10-15 07:28] LABS: Anion Gap 16 (12-20); Blood Urea Nitrogen 33 mg/dL (9-16); Calcium 8.6 mg/dL (8.4-10.2); Carbon Dioxide 21 mmol/L (22-29); Chloride 105 mmol/L (96-108); Creatinine Clr Calc Pharmacy 80.9; Estimated Glomerular Filt Rate > 60; Glucose Random 111 mg/dL (60-115); Potassium 4.5 mmol/l (3.3-5.1); Sodium 137 mmol/L (135-145)
[2020-10-15 07:42] LABS: SLIDE REVIEW VERIFIED
--- NOTE | 2020-10-15 07:43 | PC.NURSE ---
md notified for pts temp of 102 when rechecked after tylenol was given 99.1 md notified iv abx cefapime and vanco given also iv fluids started lr at 80/h as ordered
--- NOTE | 2020-10-15 07:47 | PC.NURSE ---
tepof 102 notified iv fludids started lr at 80/h and cefapime and vano given after tylenol temp rechecke 99.0
[2020-10-15] MEDS: 0.9 % Sodium Chloride Flush 3 ML SYRINGE IVFLUSH ×3 (08:24→20:16)
[2020-10-15] MEDS: FLUoxetine HCl Oral Solution 20 MG/5 ML SOLUTION 40 MG G-TUBE (08:24)
[2020-10-15] MEDS: Metoprolol Tartrate 25 MG TABLET G-TUBE ×2 (08:25→20:15)
[2020-10-15] MEDS: Famotidine 20 MG TABLET G-TUBE (08:25)
[2020-10-15] MEDS: Nystatin Powder 15 GM BOTTLE 1 APPL TOPICAL ×2 (08:26→20:16)
--- NOTE | 2020-10-15 12:01 | MHC.CLN ---
F/U PT RECEIVING OSMOLITE AT MAX GOAL RATE 40CC/HR WITH 240CC FREE WATER FLUSHES Q SHIFT TO PROVIDE 1440KCALS (30KCALS/KG), 60G PROTEIN (1.3G/KG), 1451CC TOTAL WATER FROM FORMULA AND FLUSHES (32CC/KG) NOTED FEVER-MONITOR LYTES AND ADJUST FREE WATER NEEDED LABS REVIEWED; WT STABLE AT 100# MONITOR TOLERANCE, RESIDUALS AND LYTES GOAL WT GAIN 1-2# PER WEEK
[2020-10-15] MEDS: LORazepam 2 MG/ML VIAL 0.5 MG IM ×2 (13:38→17:47)
[2020-10-15] MEDS: Enoxaparin Sodium 40 MG/0.4 ML SYRINGE SUBCUT (13:39)
--- NOTE | 2020-10-15 14:03 | P.PNIM_ITS ---
Subjective Subjective Date of Service: 10/15/20 Interval History: Seen in follow up for post ICU care for respiratory failure d/t aspiration pneumonia s/p status post PEG and Trach. Discharge cancelled yesterday due to fever and increase WBC and likley UTI and possible reaspiration and was restarted on broad spec Abx, no further fever. He is been very agitated and had to be given ativan today Review of Systems Unable to obtain review of systems since patient nonverbal with underlying cerebral palsy, developmental delay. Physical Exam Vital Signs: Vital Signs: Last Vital Signs Temp 97.2 F 10/15/20 07:00 Pulse 111 H 10/15/20 11:00 Resp 26 H 10/15/20 11:00 BP 127/68 10/15/20 11:00 Pulse Ox 94 10/15/20 11:00 Body Mass Index 17.2 General: calm, lying position on left side neck trach in place, no secretions noted lungs coarse breath sound abdomen soft bowel sounds audible extremities no edema skin no rash neuro unable to perform patient moving both upper extremities, moving head baseline nonverbal Objective Data Current Medications Generic Name Dose Route Start Last Admin Trade Name Freq PRN Reason Stop Dose Admin Acetaminophen 650 mg 09/30/20 20:05 10/13/20 14:22 Acetaminophen Oral Liquid 650 Mg/20.3 Ml Solution OG-TUBE 650 mg Q6H PRN Administration Pain and Fever Acetaminophen 650 mg 10/02/20 21:14 10/15/20 00:19 Acetaminophen Supp 650 Mg Supp.Rect NE 650 mg Q6H PRN Administration Fever Bisacodyl 10 mg 09/28/20 14:02 10/02/20 10:04 Bisacodyl 10 Mg Supp.Rect NE 10 mg DAILY PRN Administration Constipation Enoxaparin Sodium 40 mg 10/12/20 14:00 10/15/20 13:39 Enoxaparin Sodium 40 Mg/0.4 Ml Syringe SUBCUT 40 mg Q24H ELIA Administration Famotidine 20 mg 10/09/20 09:00 10/15/20 08:25 Famotidine 20 Mg Tablet G-TUBE 20 mg DAILY ELIA Administration Fluoxetine HCl 40 mg 10/13/20 09:00 10/15/20 08:24 Fluoxetine Hcl Oral Solution 20 Mg/5 Ml Solution G-TUBE 40 mg DAILY ELIA Administration Cefepime HCl 1 gm/ Sodium 50 mls @ 100 mls/hr 10/15/20 01:00 10/15/20 09:33 Chloride IV Infused Q8H ELIA Infusion Lactated Ringer's 1,000 mls @ 80 mls/hr 10/15/20 00:30 10/15/20 13:18 Lr IVCONT Infused .[id number] ELIA Infusion Vancomycin HCl 750 mg/ Sodium 265 mls @ 176.667 mls/hr 10/15/20 15:00 Chloride IV Q12H ELIA Lactulose 30 gm 10/08/20 16:32 Lactulose 20 Gm/30 Ml Solution G-TUBE BID PRN constipation Lorazepam 0.5 mg 10/15/20 12:55 10/15/20 13:38 Lorazepam 2 Mg/Ml Vial IM 0.5 mg Q4H PRN Administration anxiety Metoprolol Tartrate 25 mg 10/08/20 21:00 10/15/20 08:25 Metoprolol Tartrate 25 Mg Tablet G-TUBE 25 mg BID ELIA Administration Protocol Nystatin 1 appl 10/11/20 21:00 10/15/20 08:26 Nystatin Powder 15 Gm Bottle TOPICAL 1 appl BID ELIA Administration Protocol Ondansetron HCl 4 mg 09/28/20 15:49 09/28/20 15:58 Ondansetron Hcl 4 Mg/2 Ml Vial IVPUSH 4 mg Q6H PRN Administration Nausea Sodium Chloride 3 ml 09/23/20 16:00 10/15/20 13:39 0.9 % Sodium Chloride Flush 3 Ml Syringe IVFLUSH 3 ml QSHIFT ELIA Administration Valproic Acid 500 mg 10/12/20 21:00 10/14/20 22:43 Valproic Acid (As Sodium Salt) 250 Mg/5 Ml Solution G-TUBE 500 mg BEDTIME ELIA Administration Valproic Acid 250 mg 10/13/20 09:00 10/15/20 08:25 Valproic Acid (As Sodium Salt) 250 Mg/5 Ml Solution PO 250 mg DAILY ELIA Administration Labs CBC & Chem 7: 10/15/20 06:01 10/15/20 06:01 Microbiology Microbiology Results: Microbiology 10/14/20 18:21 Urine [place] Urine Culture - Preliminary No growth to date. 10/04/20 21:00 Blood - Central Line Blood Culture - Final No growth after 5 days. 10/04/20 20:53 Blood - Central Line Blood Culture - Final No growth after 5 days. 10/04/20 06:56 Sputum - Suctioned Gram Stain - Final 10/04/20 06:56 Sputum - Suctioned Sputum Culture - Final Enterobacter cloacae complex 10/04/20 06:56 Urine [place] Urine Culture - Final No growth. 09/26/20 15:00 Sputum - Suctioned Gram Stain - Final 09/26/20 15:00 Sputum - Suctioned Sputum Culture - Final Enterobacter cloacae complex 09/22/20 21:39 Blood - Venous Blood Culture - Final No growth after 5 days. 09/22/20 21:38 Blood - Venous Blood Culture - Final No growth after 5 days. 09/22/20 22:07 Urine clean catch - Clean Catch Midstream Urine Culture - Final Escherichia coli Assessment and Plan (1) H/O tracheostomy: Status: Acute (2) Acute respiratory failure: Status: Acute (3) Aspiration pneumonia: Status: Acute (4) GERD (gastroesophageal reflux disease): Status: Acute (5) Seizure: Status: Acute (6) Osteoporosis: Status: Acute (7) Cerebral palsy: Status: Acute (8) UTI (urinary tract infection): Status: Acute Assessment and Plan: 60-year-old gentleman with underlying history of developmental delay, cerebral palsy, spastic quadriplegia, seizure disorder, dysphagia, wheelchair-bound, skilled nursing resident who presented to the ED 09/23/2020 with fever, vomiting. He was initially admitted to the hospital service for aspiration PNA. Covid was negative. While still in ED, he decompensated and was intubated and admitted to the ICU. He was treated with antibiotics including Zosyn, Vancomycin and Doxycycline. He was extubated on 09/28 and within 6 hours aspirated and was reintubated and treated with Unasyn for aspiration yet again. He subsequently failed extubation and underwent Tracheostomy by Dr. Andrade on 10/06 and a PEG by Dr. Hester on 10/08. He was taken off vent on 10/09 and then transfer to hospitalist service on 10/09. 1.Acute respiratory failure due to recurrent aspiration--s/p intubation and now with tracheostomy--stable, he will need placement at a facility for tracheostomy and PEG care. patient appears,restless, tachypneic, therefore trach tube changed, no secretions noted will continue anxiolytics and resume home medications including SSRIs. 2. Recurrent aspiration pneumonia--he has been on multiple antibiotics including combination of Ceftriaxone, Doxycycline, Zosyn and Unasyn. Most recent WBC 11 on 10/09. -sputum culture grew Enterobacter Cloacea complex..He was restarted back on Ceftriaxone on 10/07 and is to complete and 7 day course thought 10/14, continue current IV antibiotic -Started back on Vanco and Cefepime on 10/15 for presume aspiration, will continue Cefepime and DC Vanco for now. 3. Seizure d/o continue Valproic acid , adjusted dosage since patient was using 500 mg Depakote at bedtime and 250 daily. 4. E.coli UTI--from 09/22 sample, status post antibiotic treatments. 5. moderate to severe protein calorie malnutrition--continue tube feeding , further adjustment as per Nutrition. 6. code status discussed with patient's sister who is healthcare proxy Sharri Thurman and discuss quality of life with her she agreed for DNR DNI and does not wish him to suffer anymore. 7. mood disorder patient is on 2 SSRIs including fluoxetine and fluvoxamine called skilled nursing RN to verify and left message will resume fluoxetine low-dose to avoid withdrawal symptoms. Ativan PRN
[2020-10-15 15:37] LABS: Hematocrit 30.4 % (42-52); Hemoglobin 9.8 g/dl (14.0-18.0)
[2020-10-15] MEDS: Acetaminophen Oral Liquid 650 MG/20.3 ML SOLUTION OG-TUBE (15:45)
[2020-10-15 16:02] LABS: Anion Gap 13 (12-20); Blood Urea Nitrogen 29 mg/dL (9-16); Calcium 8.7 mg/dL (8.4-10.2); Carbon Dioxide 22 mmol/L (22-29); Chloride 107 mmol/L (96-108); Creatinine Clr Calc Pharmacy 80.9; Estimated Glomerular Filt Rate > 60; Glucose Random 138 mg/dL (60-115); Potassium 4.1 mmol/l (3.3-5.1); Sodium 138 mmol/L (135-145)
[2020-10-15 17:02] LABS: COVID-19 Test Negative (Negative)
--- NOTE | 2020-10-15 17:33 | PC.NURSE ---
Temp 103.0, HR 110-118 on tele. RR 24-30, Shallow respirations. MD notified. tylenol given through G tube. Repeat covid swab pending. New chest x ray pending. Blood cultures pending. Ice packs applied to patient. Repeat temp 102.0 rectally, 0.5mg IV ativan given for restlessness at 1745.
--- NOTE | 2020-10-15 18:39 | PM.EVENT ---
Event Note Date of Service: 10/15/20 Event Note: Persistent intermittent fever most recently 102. Repeat Covid today negative, CXR no obvious infiltrate (official report pending). He has been very anxious, tacypnic and appear to have had mucus plug that was cleared by respiratory. Will continue ativan PRN and morphine for respiratory distress. Continue Vancomycin--monitor level and renal function. ID consult
[2020-10-15 20:17] LABS: Vancomycin Random 16.7 mcg/mL (15-20)
[2020-10-16] VITALS (7 sets, daily range): BP systolic 111–147; BP diastolic 60–90; PULSE 82–107; RESP 16–24; TEMP 36.4–37.5; O2SAT 93–100; BMI 15.2
[2020-10-16] MEDS: cefEPime HCl 1 GM in 0.9 % Sodium Chloride 50 ML IV ×3 (00:28→17:43)
[2020-10-16] MEDS: vancomycin HCL 750 MG in 0.9 % Sodium Chloride 250 ML 176.67 MG IV (02:26)
[2020-10-16 06:56] LABS: Hematocrit 27.8 % (42-52); Hemoglobin 8.8 g/dl (14.0-18.0); Mean Corpuscular HGB Conc 31.7 g/dl (31.0-36.0); Mean Corpuscular Hemoglobin 29.7 pg (27.0-33.0); Mean Corpuscular Volume 93.9 fL (80-98); Mean Platelet Volume 11.3 fL (9.4-12.4); Red Blood Count 2.96 X10*6/uL (4.60-5.80); Red Cell Distribution Width 13.6 % (11.0-16.0); White Blood Count 17.9 X10*3/uL (4.8-10.8)
[2020-10-16 07:09] LABS: Anion Gap 14 (12-20); Blood Urea Nitrogen 23 mg/dL (9-16); Calcium 8.3 mg/dL (8.4-10.2); Carbon Dioxide 21 mmol/L (22-29); Chloride 109 mmol/L (96-108); Creatinine Clr Calc Pharmacy 84.9; Estimated Glomerular Filt Rate > 60; Glucose Random 118 mg/dL (60-115); Potassium 4.1 mmol/l (3.3-5.1); Sodium 140 mmol/L (135-145)
[2020-10-16 07:21] LABS: Platelet Count 495 X10*3/uL (160-400)
--- NOTE | 2020-10-16 08:33 | HO.PM.IMPN ---
Subjective Subjective Date of Service: 10/16/20 Interval History: Seen in follow up for post ICU care for respiratory failure d/t aspiration pneumonia s/p status post PEG and Trach. was supposed to be d/c'd on 10/14 but had fever right before so dc was cancelled and he was put on IV Abx for presumed aspriation. He continues to be having fever up to 103 this morning. Presently 97.6. CXR on 10/15 unremarkable. Covid test on 10/15 negative. Review of Systems Unable to obtain review of systems since patient nonverbal with underlying cerebral palsy, developmental delay. Physical Exam Vital Signs: Vital Signs: Last Vital Signs Temp 97.6 F 10/16/20 08:00 Pulse 107 H 10/16/20 08:00 Resp 18 10/16/20 08:00 BP 123/85 10/16/20 08:00 Pulse Ox 98 10/16/20 08:00 Body Mass Index 15.2 geneneral: slight anxiety lying position neck trach in place, no secretions noted lungs coarse breath sound abdomen soft bowel sounds audible extremities no edema skin no rash neuro unable to perform patient moving both upper extremities, moving head baseline nonverbal Objective Data Current Medications Generic Name Dose Route Start Last Admin Trade Name Freq PRN Reason Stop Dose Admin Acetaminophen 650 mg 09/30/20 20:05 10/15/20 15:45 Acetaminophen Oral Liquid 650 Mg/20.3 Ml Solution OG-TUBE 650 mg Q6H PRN Administration Pain and Fever Acetaminophen 650 mg 10/02/20 21:14 10/15/20 19:52 Acetaminophen Supp 650 Mg Supp.Rect IN 650 mg Q6H PRN Administration Fever Bisacodyl 10 mg 09/28/20 14:02 10/02/20 10:04 Bisacodyl 10 Mg Supp.Rect IN 10 mg DAILY PRN Administration Constipation Enoxaparin Sodium 40 mg 10/12/20 14:00 10/15/20 13:39 Enoxaparin Sodium 40 Mg/0.4 Ml Syringe SUBCUT 40 mg Q24H ELIA Administration Famotidine 20 mg 10/09/20 09:00 10/15/20 08:25 Famotidine 20 Mg Tablet G-TUBE 20 mg DAILY ELIA Administration Fluoxetine HCl 40 mg 10/13/20 09:00 10/15/20 08:24 Fluoxetine Hcl Oral Solution 20 Mg/5 Ml Solution G-TUBE 40 mg DAILY ELIA Administration Cefepime HCl 1 gm/ Sodium 50 mls @ 100 mls/hr 10/15/20 01:00 10/16/20 01:00 Chloride IV Infused Q8H ELIA Infusion Lactated Ringer's 1,000 mls @ 80 mls/hr 10/15/20 00:30 10/16/20 00:29 Lr IVCONT Not Given .[id number] ELIA Vancomycin HCl 750 mg/ Sodium 265 mls @ 176.667 mls/hr 10/15/20 15:00 10/16/20 04:00 Chloride IV Infused Q12H ELIA Infusion Lactulose 30 gm 10/08/20 16:32 Lactulose 20 Gm/30 Ml Solution G-TUBE BID PRN constipation Lorazepam 0.5 mg 10/15/20 12:55 10/15/20 17:47 Lorazepam 2 Mg/Ml Vial IM 0.5 mg Q4H PRN Administration anxiety Metoprolol Tartrate 25 mg 10/08/20 21:00 10/15/20 20:15 Metoprolol Tartrate 25 Mg Tablet G-TUBE 25 mg BID ELIA Administration Protocol Morphine Sulfate 1 mg 10/15/20 18:34 Morphine Sulfate 2 Mg/Ml Cartridge IVPUSH Q4H PRN Pain or respiratory distress Nystatin 1 appl 10/11/20 21:00 10/15/20 20:16 Nystatin Powder 15 Gm Bottle TOPICAL 1 appl BID ELIA Administration Protocol Ondansetron HCl 4 mg 09/28/20 15:49 09/28/20 15:58 Ondansetron Hcl 4 Mg/2 Ml Vial IVPUSH 4 mg Q6H PRN Administration Nausea Sodium Chloride 3 ml 09/23/20 16:00 10/16/20 07:51 0.9 % Sodium Chloride Flush 3 Ml Syringe IVFLUSH Not Given QSHIFT ELIA Valproic Acid 500 mg 10/12/20 21:00 10/15/20 20:15 Valproic Acid (As Sodium Salt) 250 Mg/5 Ml Solution G-TUBE 500 mg BEDTIME ELIA Administration Valproic Acid 250 mg 10/13/20 09:00 10/15/20 08:25 Valproic Acid (As Sodium Salt) 250 Mg/5 Ml Solution PO 250 mg DAILY ELIA Administration Labs CBC & Chem 7: 10/16/20 05:56 10/16/20 05:56 Microbiology Microbiology Results: Microbiology 10/14/20 18:21 Urine [place] Urine Culture - Final No growth. 10/15/20 01:05 Blood - Venous Blood Culture - Preliminary No growth after 24 hours. 10/15/20 01:01 Blood - Venous Blood Culture - Preliminary No growth after 24 hours. 10/04/20 21:00 Blood - Central Line Blood Culture - Final No growth after 5 days. 10/04/20 20:53 Blood - Central Line Blood Culture - Final No growth after 5 days. 10/04/20 06:56 Sputum - Suctioned Gram Stain - Final 10/04/20 06:56 Sputum - Suctioned Sputum Culture - Final Enterobacter cloacae complex 10/04/20 06:56 Urine [place] Urine Culture - Final No growth. 09/26/20 15:00 Sputum - Suctioned Gram Stain - Final 09/26/20 15:00 Sputum - Suctioned Sputum Culture - Final Enterobacter cloacae complex 09/22/20 21:39 Blood - Venous Blood Culture - Final No growth after 5 days. 09/22/20 21:38 Blood - Venous Blood Culture - Final No growth after 5 days. 09/22/20 22:07 Urine clean catch - Clean Catch Midstream Urine Culture - Final Escherichia coli Assessment and Plan (1) H/O tracheostomy: Status: Acute (2) Acute respiratory failure: Status: Acute (3) Aspiration pneumonia: Status: Acute (4) GERD (gastroesophageal reflux disease): Status: Acute (5) Seizure: Status: Acute (6) Osteoporosis: Status: Acute (7) Cerebral palsy: Status: Acute (8) UTI (urinary tract infection): Status: Acute Assessment and Plan: 60-year-old gentleman with underlying history of developmental delay, cerebral palsy, spastic quadriplegia, seizure disorder, dysphagia, wheelchair-bound, senior care resident who presented to the ED 09/23/2020 with fever, vomiting. He was initially admitted to the hospital service for aspiration PNA. Covid was negative. While still in ED, he decompensated and was intubated and admitted to the ICU. He was treated with antibiotics including Zosyn, Vancomycin and Doxycycline. He was extubated on 09/28 and within 6 hours aspirated and was reintubated and treated with Unasyn for aspiration yet again. He subsequently failed extubation and underwent Tracheostomy by Dr. Andrade on 10/06 and a PEG by Dr. Hester on 10/08. He was taken off vent on 10/09 and then transfer to hospitalist service on 10/09. 1.Acute respiratory failure due to recurrent aspiration--s/p intubation and now with tracheostomy--stable, he will need placement at a facility for tracheostomy and PEG care. patient appears gets intermitent restlessness, tachypneic, usually from plugged trached, no secretions noted will continue anxiolytics PRN 2. Recurrent aspiration pneumonia--he has been on multiple antibiotics including combination of Ceftriaxone, Doxycycline, Zosyn and Unasyn. Most recent WBC 11 on 10/09. -sputum culture grew Enterobacter Cloacea complex..He was restarted back on Ceftriaxone on 10/07 and is to complete and 7 day course thought 10/14, continue current IV antibiotic -Started back on Vanco and Cefepime on 10/14 for presume aspiration. Covid test 10/15 negative, CXR negative. Check UA. Blood culture 10/15 negative. D/C Vanco, continue Cefepime and get ID consult. -Treat fever with APAP 3. Seizure d/o continue Valproic acid , adjusted dosage since patient was using 500 mg Depakote at bedtime and 250 daily. 4. E.coli UTI--from 09/22 sample, status post antibiotic treatments. 5. moderate to severe protein calorie malnutrition--continue tube feeding , further adjustment as per Nutrition. 6. code status discussed with patient's sister who is healthcare proxy Sharri Thurman and discuss quality of life with her she agreed for DNR DNI and does not wish him to suffer anymore. 7. mood disorder patient is on 2 SSRIs including fluoxetine and fluvoxamine called senior care RN to verify and left message will resume fluoxetine low-dose to avoid withdrawal symptoms. Ativan PRN Goals of care were discussed with sister over the phone yesterday, see note
[2020-10-16] MEDS: FLUoxetine HCl Oral Solution 20 MG/5 ML SOLUTION 40 MG G-TUBE (09:23)
[2020-10-16] MEDS: Famotidine 20 MG TABLET G-TUBE (09:27)
[2020-10-16] MEDS: Metoprolol Tartrate 25 MG TABLET G-TUBE ×2 (09:27→20:13)
[2020-10-16] MEDS: Nystatin Powder 15 GM BOTTLE 1 APPL TOPICAL ×2 (09:29→20:13)
[2020-10-16] MEDS: Lactated Ringers 1,000 ML 80 ML IVCONT ×2 (09:30→23:16)
[2020-10-16] MEDS: Acetaminophen Oral Liquid 650 MG/20.3 ML SOLUTION OG-TUBE (09:49)
[2020-10-16] MEDS: Morphine Sulfate 2 MG/ML CARTRIDGE 1 MG IVPUSH ×2 (10:19→20:14)
[2020-10-16] MEDS: LORazepam 2 MG/ML VIAL 0.5 MG IM (14:50)
[2020-10-16] MEDS: Enoxaparin Sodium 40 MG/0.4 ML SYRINGE SUBCUT (14:51)
[2020-10-16 14:58] LABS: Vancomycin Trough 7.3 mcg/mL (10.0-20.0)
[2020-10-16] MEDS: 0.9 % Sodium Chloride Flush 3 ML SYRINGE IVFLUSH (20:13)
--- NOTE | 2020-10-16 23:22 | PM.IDPN ---
Subjective Subjective Date of Service: 10/16/20 Interval History: he had temperature of 103.6 no further temperature Cefepime was started CXR improved Objective Data Labs CBC & Chem 7: 10/16/20 05:56 10/16/20 05:56 Labs: Laboratory Results - last 24 hr 10/16/20 10/16/20 10/16/20 05:56 05:56 14:18 WBC 17.9 H RBC 2.96 L Hgb 8.8 L Hct 27.8 L MCV 93.9 MCH 29.7 MCHC 31.7 RDW 13.6 Plt Count 495 H D MPV 11.3 Absolute Nucleated RBC 0.000 Nucleated RBC % (auto) 0.0 Sodium 140 Potassium 4.1 Chloride 109 H Carbon Dioxide 21 L Anion Gap 14 BUN 23 H Creatinine 0.54 Estim Creat Clear Calc 84.9 Estimated GFR > 60 Random Glucose 118 H Calcium 8.3 L Vancomycin Trough 7.3 L Microbiology Microbiology Results: Microbiology 10/14/20 18:21 Urine [place] Urine Culture - Final No growth. 10/15/20 01:05 Blood - Venous Blood Culture - Preliminary No growth after 24 hours. 10/15/20 01:01 Blood - Venous Blood Culture - Preliminary No growth after 24 hours. 10/04/20 21:00 Blood - Central Line Blood Culture - Final No growth after 5 days. 10/04/20 20:53 Blood - Central Line Blood Culture - Final No growth after 5 days. 10/04/20 06:56 Sputum - Suctioned Gram Stain - Final 10/04/20 06:56 Sputum - Suctioned Sputum Culture - Final Enterobacter cloacae complex 10/04/20 06:56 Urine [place] Urine Culture - Final No growth. 09/26/20 15:00 Sputum - Suctioned Gram Stain - Final 09/26/20 15:00 Sputum - Suctioned Sputum Culture - Final Enterobacter cloacae complex 09/22/20 21:39 Blood - Venous Blood Culture - Final No growth after 5 days. 09/22/20 21:38 Blood - Venous Blood Culture - Final No growth after 5 days. 09/22/20 22:07 Urine clean catch - Clean Catch Midstream Urine Culture - Final Escherichia coli Physical Exam Vital Signs: Vital Signs: Last Vital Signs Temp 97.6 F 10/16/20 20:00 Pulse 99 12/12/20 20:13 Resp 16 10/16/20 20:00 BP 147/60 H 10/16/20 20:13 Pulse Ox 100 10/16/20 20:00 Body Mass Index 15.2 Const: General: cooperative Resp: Effort & Inspection: normal respiratory effort Cardio: Rate: regular rate Rhythm: regular rhythm GI: Inspection: Yes normal to inspection Assessment and Plan Assessment and plan (1) Acute respiratory failure: Problem details: Fever has resolved There may be mucus plugging,seems to have improved on Cefepime Status: Acute Assessment and Plan: Would continue Cefepime for now,possible 3-5 d Await cultures Time Spent With Patient Time: Total time spent is greater than 50% in coordination of care (as documented) at patient's floor/unit and/or counseling patient: Time with patient: 15 - 24 minutes
[2020-10-17] VITALS (7 sets, daily range): BP systolic 129–138; BP diastolic 62–86; PULSE 68–98; RESP 18–22; TEMP 36.6–37.4; O2SAT 93–98; BMI 15.0
[2020-10-17] MEDS: Morphine Sulfate 2 MG/ML CARTRIDGE 1 MG IVPUSH ×2 (00:07→23:48)
[2020-10-17] MEDS: cefEPime HCl 1 GM in 0.9 % Sodium Chloride 50 ML IV ×4 (00:19→23:44)
[2020-10-17 00:57] LABS: Glucose Urine UA NEG (NEG); Leukocyte Esterase Urine NEG (NEG); Nitrite Urine NEG (NEG); Specific Gravity - Urine 1.025 (1.005-1.025); Urine Blood 2+ (NEG); Urine Ketones NEG (NEG); Urine Protein 1+ MG/DL (NEG-TRACE)
[2020-10-17 01:07] LABS: Appearance Urine CLEAR; Color Urine YELLOW
[2020-10-17 01:12] LABS: RBC Urine 30-49 /HPF (0)
[2020-10-17 01:13] LABS: Bacteria Urine 1+ /LPF; Mucus Urine 1+ /LPF; Squamous Epithelial Cell Urine 1+ /LPF
[2020-10-17 07:35] LABS: Hematocrit 27.6 % (42-52); Hemoglobin 8.8 g/dl (14.0-18.0); Mean Corpuscular HGB Conc 31.9 g/dl (31.0-36.0); Mean Corpuscular Hemoglobin 29.6 pg (27.0-33.0); Mean Corpuscular Volume 92.9 fL (80-98); Mean Platelet Volume 11.6 fL (9.4-12.4); Platelet Count 440 X10*3/uL (160-400); Red Blood Count 2.97 X10*6/uL (4.60-5.80); Red Cell Distribution Width 13.1 % (11.0-16.0); White Blood Count 15.1 X10*3/uL (4.8-10.8)
[2020-10-17 08:14] LABS: Anion Gap 12 (12-20); Blood Urea Nitrogen 12 mg/dL (9-16); Carbon Dioxide 23 mmol/L (22-29); Chloride 103 mmol/L (96-108); Creatinine Clr Calc Pharmacy 94.4; Estimated Glomerular Filt Rate > 60; Glucose Random 96 mg/dL (60-115); Potassium 4.3 mmol/l (3.3-5.1); Sodium 134 mmol/L (135-145)
[2020-10-17] MEDS: Famotidine 20 MG TABLET G-TUBE (10:02)
[2020-10-17] MEDS: FLUoxetine HCl Oral Solution 20 MG/5 ML SOLUTION 40 MG G-TUBE (10:02)
[2020-10-17] MEDS: Metoprolol Tartrate 25 MG TABLET G-TUBE ×2 (10:02→20:17)
--- NOTE | 2020-10-17 10:57 | P.PNIM_ITS ---
Subjective Subjective Date of Service: 10/17/20 Interval History: Seen in follow up for post ICU care for respiratory failure d/t aspiration pneumonia s/p status post PEG and Trach. was supposed to be d/c'd on 10/14 but had fever right before so dc was cancelled and he was put on IV Abx for presumed aspriation. No fever overnight and generally doing better Review of Systems Unable to obtain review of systems since patient nonverbal with underlying cerebral palsy, developmental delay. Physical Exam Vital Signs: Vital Signs: Last Vital Signs Temp 99.3 F 10/17/20 03:26 Pulse 68 10/17/20 10:02 Resp 18 10/17/20 08:00 BP 129/72 10/17/20 10:02 Pulse Ox 93 10/17/20 08:00 Body Mass Index 15.0 geneneral: slight anxiety lying position neck trach in place, no secretions noted lungs coarse breath sound abdomen soft bowel sounds audible extremities no edema skin no rash neuro unable to perform patient moving both upper extremities, moving head baseline nonverbal Objective Data Current Medications Generic Name Dose Route Start Last Admin Trade Name Freq PRN Reason Stop Dose Admin Acetaminophen 650 mg 09/30/20 20:05 10/16/20 09:49 Acetaminophen Oral Liquid 650 Mg/20.3 Ml Solution OG-TUBE 650 mg Q6H PRN Administration Pain and Fever Acetaminophen 650 mg 10/02/20 21:14 10/15/20 19:52 Acetaminophen Supp 650 Mg Supp.Rect ID 650 mg Q6H PRN Administration Fever Bisacodyl 10 mg 09/28/20 14:02 10/02/20 10:04 Bisacodyl 10 Mg Supp.Rect ID 10 mg DAILY PRN Administration Constipation Enoxaparin Sodium 40 mg 10/12/20 14:00 10/16/20 14:51 Enoxaparin Sodium 40 Mg/0.4 Ml Syringe SUBCUT 40 mg Q24H ELIA Administration Famotidine 20 mg 10/09/20 09:00 10/17/20 10:02 Famotidine 20 Mg Tablet G-TUBE 20 mg DAILY ELIA Administration Fluoxetine HCl 40 mg 10/13/20 09:00 10/17/20 10:02 Fluoxetine Hcl Oral Solution 20 Mg/5 Ml Solution G-TUBE 40 mg DAILY ELIA Administration Cefepime HCl 1 gm/ Sodium 50 mls @ 100 mls/hr 10/15/20 01:00 10/17/20 10:33 Chloride IV Infused Q8H ELIA Infusion Lactated Ringer's 1,000 mls @ 80 mls/hr 10/15/20 00:30 10/16/20 23:16 Lr IVCONT 80 mls/hr .[id number] ELIA Administration Lactulose 30 gm 10/08/20 16:32 Lactulose 20 Gm/30 Ml Solution G-TUBE BID PRN constipation Lorazepam 0.5 mg 10/15/20 12:55 10/16/20 14:50 Lorazepam 2 Mg/Ml Vial IM 0.5 mg Q4H PRN Administration anxiety Metoprolol Tartrate 25 mg 10/08/20 21:00 10/17/20 10:02 Metoprolol Tartrate 25 Mg Tablet G-TUBE 25 mg BID ELIA Administration Protocol Morphine Sulfate 1 mg 10/15/20 18:34 10/17/20 00:07 Morphine Sulfate 2 Mg/Ml Cartridge IVPUSH 1 mg Q4H PRN Administration Pain or respiratory distress Nystatin 1 appl 10/11/20 21:00 10/16/20 20:13 Nystatin Powder 15 Gm Bottle TOPICAL 1 appl BID ELIA Administration Protocol Ondansetron HCl 4 mg 09/28/20 15:49 09/28/20 15:58 Ondansetron Hcl 4 Mg/2 Ml Vial IVPUSH 4 mg Q6H PRN Administration Nausea Sodium Chloride 3 ml 09/23/20 16:00 10/17/20 10:02 0.9 % Sodium Chloride Flush 3 Ml Syringe IVFLUSH Not Given QSHIFT ELIA Valproic Acid 500 mg 10/12/20 21:00 10/16/20 20:13 Valproic Acid (As Sodium Salt) 250 Mg/5 Ml Solution G-TUBE 500 mg BEDTIME ELIA Administration Valproic Acid 250 mg 10/13/20 09:00 10/17/20 10:02 Valproic Acid (As Sodium Salt) 250 Mg/5 Ml Solution PO 250 mg DAILY ELIA Administration Labs CBC & Chem 7: 10/17/20 06:28 10/17/20 06:28 Microbiology Microbiology Results: Microbiology 10/15/20 01:05 Blood - Venous Blood Culture - Preliminary No growth after 48 hours. 10/15/20 01:01 Blood - Venous Blood Culture - Preliminary No growth after 48 hours. 10/14/20 18:21 Urine [place] Urine Culture - Final No growth. 10/04/20 21:00 Blood - Central Line Blood Culture - Final No growth after 5 days. 10/04/20 20:53 Blood - Central Line Blood Culture - Final No growth after 5 days. 10/04/20 06:56 Sputum - Suctioned Gram Stain - Final 10/04/20 06:56 Sputum - Suctioned Sputum Culture - Final Enterobacter cloacae complex 10/04/20 06:56 Urine [place] Urine Culture - Final No growth. 09/26/20 15:00 Sputum - Suctioned Gram Stain - Final 09/26/20 15:00 Sputum - Suctioned Sputum Culture - Final Enterobacter cloacae complex 09/22/20 21:39 Blood - Venous Blood Culture - Final No growth after 5 days. 09/22/20 21:38 Blood - Venous Blood Culture - Final No growth after 5 days. 09/22/20 22:07 Urine clean catch - Clean Catch Midstream Urine Culture - Final Escherichia coli Assessment and Plan (1) H/O tracheostomy: Status: Acute (2) Acute respiratory failure: Problem details: Fever has resolved There may be mucus plugging,seems to have improved on Cefepime Status: Acute (3) Aspiration pneumonia: Status: Acute (4) GERD (gastroesophageal reflux disease): Status: Acute (5) Seizure: Status: Acute (6) Osteoporosis: Status: Acute (7) Cerebral palsy: Status: Acute (8) UTI (urinary tract infection): Status: Acute Assessment and Plan: 60-year-old gentleman with underlying history of developmental delay, cerebral palsy, spastic quadriplegia, seizure disorder, dysphagia, wheelchair-bound, custodial resident who presented to the ED 09/23/2020 with fever, vomiting. He was initially admitted to the hospital service for aspiration PNA. Covid was negative. While still in ED, he decompensated and was intubated and admitted to the ICU. He was treated with antibiotics including Zosyn, Vancomycin and Doxycycline. He was extubated on 09/28 and within 6 hours aspirated and was reintubated and treated with Unasyn for aspiration yet again. He subsequently failed extubation and underwent Tracheostomy by Dr. Andrade on 10/06 and a PEG by Dr. Hester on 10/08. He was taken off vent on 10/09 and then transfer to hospitalist service on 10/09. 1.Acute respiratory failure due to recurrent aspiration--s/p intubation and now with tracheostomy--stable, he will need placement at a facility for tracheostomy and PEG care. patient appears gets intermitent restlessness, tachypneic, usually from plugged trached, no secretions noted will continue anxiolytics PRN 2. Recurrent aspiration pneumonia--he has been on multiple antibiotics including combination of Ceftriaxone, Doxycycline, Zosyn and Unasyn. Most recent WBC 11 on 10/09. -sputum culture grew Enterobacter Cloacea complex..He was restarted back on Ceftriaxone on 10/07 and is to complete and 7 day course thought 10/14, continue current IV antibiotic -Started back on Vanco and Cefepime on 10/14 for presume aspiration,. Covid test 10/15 negative, CXR negative. Check UA. Blood culture 10/15 negative. D/C Vanco, continue Cefepime for 3 to 5 days per ID guide -Treat fever with APAP 3. Seizure d/o continue Valproic acid , adjusted dosage since patient was using 500 mg Depakote at bedtime and 250 daily. 4. E.coli UTI--from 09/22 sample, status post antibiotic treatments. 5. moderate to severe protein calorie malnutrition--continue tube feeding , further adjustment as per Nutrition. 6. code status discussed with patient's sister who is healthcare proxy Sharri Connollyalenacarmen and discuss quality of life with her she agreed for DNR DNI and does not wish him to suffer anymore. 7. mood disorder patient is on 2 SSRIs including fluoxetine and fluvoxamine called custodial RN to verify and left message will resume fluoxetine low-dose to avoid withdrawal symptoms. Ativan PRN Goals of care were discussed with sister over the phone yesterday, see note
[2020-10-17] MEDS: Nystatin Powder 15 GM BOTTLE 1 APPL TOPICAL ×2 (12:00→20:18)
[2020-10-17] MEDS: Lactated Ringers 1,000 ML 80 ML IVCONT ×2 (13:03→23:39)
--- NOTE | 2020-10-17 13:58 | PC.NURSE ---
PATIENT NOTED TO HAVE BRIGHT RED BLOODY MUCOUS FROM TRACH. NOTIFIED DOCTOR MLAPAH. STEPHEN STATES OK TO HOLD PATIENT'S 1400 DOSE OF LOVENOX.
--- NOTE | 2020-10-17 14:10 | PC.NURSE ---
PATIENT TRYING TO COUGH BUT UNABLE TO MOVE SECRETIONS. PATIENT HYPEROXYGENATED PRIOR TO TRACH CLEANING AND SUCTIONING. UPON CLEANING TRACH THICK BRIGHT BLOODY MUCOUS NOTED INSIDE TRACH, PATIENT COUGHED SMALL AMOUNT OF BLOODY MUCOUS. PATIENT SUCTIONED AND NOTED TO BE ABLE TO COUGH BETTER. LUNG SOUNDS CLEAR IN BILATERAL UPPER LOBES AND DIMINISHED IN THE BILATERAL BASES AFTER SUCTIONING.
[2020-10-18] VITALS (8 sets, daily range): BP systolic 125–138; BP diastolic 64–83; PULSE 76–104; RESP 18–30; TEMP 36.6–36.9; O2SAT 95–99; BMI 15.5
[2020-10-18 07:34] LABS: Anion Gap 16 (12-20); Blood Urea Nitrogen 12 mg/dL (9-16); Calcium 8.4 mg/dL (8.4-10.2); Carbon Dioxide 21 mmol/L (22-29); Chloride 103 mmol/L (96-108); Creatinine Clr Calc Pharmacy 99.5; Estimated Glomerular Filt Rate > 60; Glucose Random 101 mg/dL (60-115); Potassium 5.3 mmol/l (3.3-5.1); Sodium 135 mmol/L (135-145)
[2020-10-18 07:58] LABS: Basophils Absolute Auto 0.1 X10*3/uL (0.0-0.2); Basophils Percent Auto 0.3 % (0-2); Eosinophils Absolute Auto 0.5 X10*3/uL (0.0-0.4); Hematocrit 30.9 % (42-52); Hemoglobin 9.9 g/dl (14.0-18.0); Imm Gran Abs Auto 0.28 X10*3/uL (0.00-0.03); Imm Gran Pct Auto 1.6 % (0.0-0.4); Lymphocytes Absolute Auto 1.5 X10*3/uL (1.2-4.9); Lymphocytes Percent Auto 8.7 % (20-40); MANUAL DIFF FLAG SCAN; Mean Corpuscular Hemoglobin 30.2 pg (27.0-33.0); Mean Corpuscular Volume 94.2 fL (80-98); Mean Platelet Volume 12.2 fL (9.4-12.4); Monocytes Percent Auto 11.2 % (2-11); Neutrophils Absolute Auto 13.1 X10*3/uL (2.0-8.3); Neutrophils Percent Auto 75.2 % (45-73); PLT CLUMP 1; Red Blood Count 3.28 X10*6/uL (4.60-5.80); Red Cell Distribution Width 13.1 % (11.0-16.0); SCAN SMEAR FLAG 1
[2020-10-18 08:15] LABS: Platelet Count 433 X10*3/uL (160-400); White Blood Count 17.5 X10*3/uL (4.8-10.8)
[2020-10-18 08:16] LABS: SLIDE REVIEW VERIFIED
[2020-10-18] MEDS: 0.9 % Sodium Chloride Flush 3 ML SYRINGE IVFLUSH ×3 (09:29→23:20)
[2020-10-18] MEDS: cefEPime HCl 1 GM in 0.9 % Sodium Chloride 50 ML IV ×3 (09:29→23:16)
[2020-10-18] MEDS: Famotidine 20 MG TABLET G-TUBE (09:30)
[2020-10-18] MEDS: FLUoxetine HCl Oral Solution 20 MG/5 ML SOLUTION 40 MG G-TUBE (09:30)
[2020-10-18] MEDS: Metoprolol Tartrate 25 MG TABLET G-TUBE ×2 (09:30→19:47)
[2020-10-18] MEDS: Nystatin Powder 15 GM BOTTLE 1 APPL TOPICAL ×2 (09:32→19:48)
--- NOTE | 2020-10-18 10:27 | P.PNIM_ITS ---
Subjective Subjective Date of Service: 10/18/20 Interval History: seen and examined looks comfortable no new issues reported ROS unable due to patient baseline Physical Exam Vital Signs: Vital Signs: Last Vital Signs Temp 97.9 F 10/18/20 08:00 Pulse 82 10/18/20 08:00 Resp 18 10/18/20 08:00 BP 138/74 10/18/20 08:00 Pulse Ox 97 10/18/20 08:00 Body Mass Index 15.5 Const: Other: General - no acute distress, appears comfortable HEENT - trach in place Cardiovascular - regular rate and rhythm, S1-S2 Lungs - no distress Abdomen - soft, nontender, no rebound or guarding Extremities - no edema bilaterally Neuro - awake and alert, non-verbal Objective Data Current Medications Generic Name Dose Route Start Last Admin Trade Name Freq PRN Reason Stop Dose Admin Acetaminophen 650 mg 09/30/20 20:05 10/16/20 09:49 Acetaminophen Oral Liquid 650 Mg/20.3 Ml Solution OG-TUBE 650 mg Q6H PRN Administration Pain and Fever Acetaminophen 650 mg 10/02/20 21:14 10/15/20 19:52 Acetaminophen Supp 650 Mg Supp.Rect MN 650 mg Q6H PRN Administration Fever Bisacodyl 10 mg 09/28/20 14:02 10/02/20 10:04 Bisacodyl 10 Mg Supp.Rect MN 10 mg DAILY PRN Administration Constipation Enoxaparin Sodium 40 mg 10/12/20 14:00 10/17/20 13:04 Enoxaparin Sodium 40 Mg/0.4 Ml Syringe SUBCUT Not Given Q24H ELIA Famotidine 20 mg 10/09/20 09:00 10/18/20 09:30 Famotidine 20 Mg Tablet G-TUBE 20 mg DAILY ELIA Administration Fluoxetine HCl 40 mg 10/13/20 09:00 10/18/20 09:30 Fluoxetine Hcl Oral Solution 20 Mg/5 Ml Solution G-TUBE 40 mg DAILY ELIA Administration Cefepime HCl 1 gm/ Sodium 50 mls @ 100 mls/hr 10/15/20 01:00 10/18/20 10:15 Chloride IV Infused Q8H ELIA Infusion Lactulose 30 gm 10/08/20 16:32 Lactulose 20 Gm/30 Ml Solution G-TUBE BID PRN constipation Lorazepam 0.5 mg 10/15/20 12:55 10/16/20 14:50 Lorazepam 2 Mg/Ml Vial IM 0.5 mg Q4H PRN Administration anxiety Metoprolol Tartrate 25 mg 10/08/20 21:00 10/18/20 09:30 Metoprolol Tartrate 25 Mg Tablet G-TUBE 25 mg BID ELIA Administration Protocol Morphine Sulfate 1 mg 10/15/20 18:34 10/17/20 23:48 Morphine Sulfate 2 Mg/Ml Cartridge IVPUSH 1 mg Q4H PRN Administration Pain or respiratory distress Nystatin 1 appl 10/11/20 21:00 10/18/20 09:32 Nystatin Powder 15 Gm Bottle TOPICAL 1 appl BID ELIA Administration Protocol Ondansetron HCl 4 mg 09/28/20 15:49 09/28/20 15:58 Ondansetron Hcl 4 Mg/2 Ml Vial IVPUSH 4 mg Q6H PRN Administration Nausea Sodium Chloride 3 ml 09/23/20 16:00 10/18/20 09:29 0.9 % Sodium Chloride Flush 3 Ml Syringe IVFLUSH 3 ml QSHIFT ELIA Administration Valproic Acid 500 mg 10/12/20 21:00 10/17/20 20:17 Valproic Acid (As Sodium Salt) 250 Mg/5 Ml Solution G-TUBE 500 mg BEDTIME ELIA Administration Valproic Acid 250 mg 10/13/20 09:00 10/18/20 09:31 Valproic Acid (As Sodium Salt) 250 Mg/5 Ml Solution PO 250 mg DAILY ELIA Administration Labs CBC & Chem 7: 10/18/20 05:49 10/18/20 05:49 Microbiology Microbiology Results: Microbiology 10/15/20 01:05 Blood - Venous Blood Culture - Preliminary No growth after 48 hours. 10/15/20 01:01 Blood - Venous Blood Culture - Preliminary No growth after 48 hours. 10/14/20 18:21 Urine [place] Urine Culture - Final No growth. 10/04/20 21:00 Blood - Central Line Blood Culture - Final No growth after 5 days. 10/04/20 20:53 Blood - Central Line Blood Culture - Final No growth after 5 days. 10/04/20 06:56 Sputum - Suctioned Gram Stain - Final 10/04/20 06:56 Sputum - Suctioned Sputum Culture - Final Enterobacter cloacae complex 10/04/20 06:56 Urine [place] Urine Culture - Final No growth. 09/26/20 15:00 Sputum - Suctioned Gram Stain - Final 09/26/20 15:00 Sputum - Suctioned Sputum Culture - Final Enterobacter cloacae complex 09/22/20 21:39 Blood - Venous Blood Culture - Final No growth after 5 days. 09/22/20 21:38 Blood - Venous Blood Culture - Final No growth after 5 days. 09/22/20 22:07 Urine clean catch - Clean Catch Midstream Urine Culture - Final Escherichia coli Assessment and Plan (1) Acute respiratory failure: Status: Acute Assessment and Plan: This is a 60 yo gentleman with underlying history of developmental delay, cerebral palso, spastic quadriplegia, seizure disorder, dysphasia, wheelchair- bound, intermediate resident who presented to the ED on 09/23/2020 with fever and vomiting. His course has been complicated by multiple episodes of respiratory failure and ultimately required PEG/Trach placement. He was due to transfer on 10/14/2020 but spiked a fever and discharge was cancelled. 1. Acute resp. failure due to recurrent aspiration now with trach and peg continue current care 2. Recurrent aspiration pneumonia multiple bouts of antibiotic course currently day day 4/5 of cefepime as recommended by ID 3. Seizure disorder depakote 500mg/250mg 4. E. Coli UTI completed treatment 5. Moderate to Severe protein calorie malnutrition tube feeds 6. Mood continue fluoxetine prn ativan DNR/DNI (see previous documentation) Full Code DVT pptx, lovenox dispo: LTAC once completes antibiotic course completed
--- NOTE | 2020-10-18 11:46 | P.CDIC_ITS ---
CDI Concurrent Query Service Date: 10/19/20 Documentation Clarification: Please clarify if you are treating a proba ble/suspected/likely or confirmed: Consistency and clarity of documentation within the medical record: Sepsis due to aspiration pneumonia w acute hypoxic respiratory failure (POA, Resolved, Treated, Rule out) Please specify if known or other Unclear Provider Response: Other Other Diagnosis: Unclear PLEASE DO NOT DELETE/MODIFY EXISTING CONTENT Additional information is needed in order to code to the highest accuracy and appropriate Severity of Illness (SOI). Please clarify the information noted below in your progress notes and discharge summary. Risk Factors/Clinical Indicators/Treatments ED: 09/22-was provided Sepsis volume of fluids, pt met criteria for Sepsis but not severe sepsis or shock. IV Vancomycin, Zosyn, Ceftriaxone, IV fluids. H&P: 09/23-Assessment/plan: Sepsis, acute, ID consult requested. Temp 103.2 HR 113 RR 34 WBC 19 LA 2.7 ICU note 09/24-09/25-09/26 -Sepsis with acute hypoxic respiratory failure add Decadron, Albuterol, IV Lasix, CDS: Jackie Washington CCS, CDIS Contact Number: [phone] Please Review the information above and exercise your independent professional judgment in responding to the query. If you concur, pleas document in the PROGRESS NOTES and DISCHARGE SUMMARY. If you do not agree with the query, please document in the query above. THIS QUERY IS PART OF THE PERMANENT MEDICAL RECORD
--- NOTE | 2020-10-18 13:21 | MHC.CLN ---
F/U PT RECEIVING OSMOLITE AT MAX GOAL RATE 40CC/HR WITH 240CC FREE WATER FLUSHES Q SHIFT TO PROVIDE 1440KCALS (30KCALS/KG), 60G PROTEIN (1.3G/KG), 1451CC TOTAL WATER FROM FORMULA AND FLUSHES (32CC/KG) NOTED FEVER-MONITOR LYTES AND ADJUST FREE WATER NEEDED MONITOR TOLERANCE, RESIDUALS
--- NOTE | 2020-10-18 14:57 | MHC.CM.PN ---
per multidis rounds pt maybe ready for dc sunday simon unable to take pt if wbc is trending upward
[2020-10-18] MEDS: Enoxaparin Sodium 40 MG/0.4 ML SYRINGE SUBCUT (15:16)
[2020-10-18] MEDS: LORazepam 2 MG/ML VIAL 0.5 MG IV (20:13)
[2020-10-18] MEDS: Morphine Sulfate 2 MG/ML CARTRIDGE 1 MG IVPUSH (23:15)
[2020-10-19] VITALS (8 sets, daily range): BP systolic 111–179; BP diastolic 56–83; PULSE 60–114; RESP 18–25; TEMP 36.7–39.1; O2SAT 93–98; BMI 16.0
--- NOTE | 2020-10-19 | XR_ITS ---
EXAMINATION: XR CHEST CLINICAL INFORMATION: Fever COMPARISON: 10/15/2020 TECHNIQUE: Frontal view of the chest was obtained. FINDINGS: Normal symmetric lung volumes. No parenchymal consolidation. No pleural effusion. No pneumothorax. Cardiomediastinal silhouette and pulmonary vascularity are within normal limits. Aorta is atherosclerotic. No acute osseous abnormalities. XR/XR chest 1V IMPRESSION: No focal consolidation or evidence of acute pneumonitis.
[2020-10-19] MEDS: LORazepam 2 MG/ML VIAL 0.5 MG IV (02:41)
[2020-10-19] MEDS: Acetaminophen Supp 650 MG SUPP.RECT PR (02:46)
--- NOTE | 2020-10-19 05:11 | MHC.PIE ---
p; temp 102.4 rectal at 0253. prn tylenol supp given. temp now 101.8 rectal. i; dr goel notified e; will cont to monitor
[2020-10-19] MEDS: Ibuprofen 600 MG TABLET G-TUBE (05:37)
[2020-10-19] MEDS: FLUoxetine HCl Oral Solution 20 MG/5 ML SOLUTION 40 MG G-TUBE (08:35)
[2020-10-19] MEDS: Famotidine 20 MG TABLET G-TUBE (08:35)
[2020-10-19] MEDS: cefEPime HCl 1 GM in 0.9 % Sodium Chloride 50 ML IV (08:35)
[2020-10-19] MEDS: Metoprolol Tartrate 25 MG TABLET G-TUBE ×2 (08:35→20:18)
[2020-10-19] MEDS: Nystatin Powder 15 GM BOTTLE 1 APPL TOPICAL ×2 (08:57→20:18)
[2020-10-19] MEDS: 0.9 % Sodium Chloride Flush 3 ML SYRINGE IVFLUSH ×2 (08:57→16:24)
[2020-10-19 10:08] LABS: Hematocrit 30.8 % (42-52); Hemoglobin 9.7 g/dl (14.0-18.0); Mean Corpuscular HGB Conc 31.5 g/dl (31.0-36.0); Mean Corpuscular Hemoglobin 29.5 pg (27.0-33.0); Mean Corpuscular Volume 93.6 fL (80-98); Mean Platelet Volume 11.9 fL (9.4-12.4); Platelet Count 578 X10*3/uL (160-400); Red Blood Count 3.29 X10*6/uL (4.60-5.80); Red Cell Distribution Width 13.1 % (11.0-16.0); White Blood Count 20.9 X10*3/uL (4.8-10.8)
[2020-10-19 10:28] LABS: Anion Gap 14 (12-20); Blood Urea Nitrogen 16 mg/dL (9-16); Calcium 8.4 mg/dL (8.4-10.2); Carbon Dioxide 25 mmol/L (22-29); Chloride 99 mmol/L (96-108); Creatinine Clr Calc Pharmacy 84.9; Estimated Glomerular Filt Rate > 60; Glucose Random 127 mg/dL (60-115); Potassium 4.9 mmol/l (3.3-5.1); Sodium 133 mmol/L (135-145)
--- NOTE | 2020-10-19 13:21 | HO.PM.IMPN ---
Subjective Subjective Date of Service: 10/19/20 Interval History: seen and examined appears comfortable spiked temperature overnight again ROS unable due to patient baseline Physical Exam Vital Signs: Vital Signs: Last Vital Signs Temp 98.6 F 10/19/20 11:34 Pulse 100 10/19/20 11:34 Resp 18 10/19/20 11:34 BP 126/74 10/19/20 11:34 Pulse Ox 97 10/19/20 11:34 Body Mass Index 16.0 Const: Other: General - no acute distress, appears comfortable HEENT - trach in place Cardiovascular - regular rate and rhythm, S1-S2 Lungs - no distress Abdomen - soft, nontender, no rebound or guarding Extremities - no edema bilaterally Neuro - awake and alert, non-verbal Objective Data Current Medications Generic Name Dose Route Start Last Admin Trade Name Freq PRN Reason Stop Dose Admin Acetaminophen 650 mg 09/30/20 20:05 10/16/20 09:49 Acetaminophen Oral Liquid 650 Mg/20.3 Ml Solution OG-TUBE 650 mg Q6H PRN Administration Pain and Fever Acetaminophen 650 mg 10/02/20 21:14 10/19/20 02:46 Acetaminophen Supp 650 Mg Supp.Rect IN 650 mg Q6H PRN Administration Fever Bisacodyl 10 mg 09/28/20 14:02 10/02/20 10:04 Bisacodyl 10 Mg Supp.Rect IN 10 mg DAILY PRN Administration Constipation Enoxaparin Sodium 40 mg 10/12/20 14:00 10/18/20 15:16 Enoxaparin Sodium 40 Mg/0.4 Ml Syringe SUBCUT 40 mg Q24H ELIA Administration Famotidine 20 mg 10/09/20 09:00 10/19/20 08:35 Famotidine 20 Mg Tablet G-TUBE 20 mg DAILY ELIA Administration Fluoxetine HCl 40 mg 10/13/20 09:00 10/19/20 08:35 Fluoxetine Hcl Oral Solution 20 Mg/5 Ml Solution G-TUBE 40 mg DAILY ELIA Administration Piperacillin Sod/Tazobactam 100 mls @ 200 mls/hr 10/19/20 13:00 Sod 4.5 gm/ Sodium Chloride IV Q6H ELIA Lactulose 30 gm 10/08/20 16:32 Lactulose 20 Gm/30 Ml Solution G-TUBE BID PRN constipation Lorazepam 0.5 mg 10/18/20 20:10 10/19/20 02:41 Lorazepam 2 Mg/Ml Vial IV 0.5 mg Q4H PRN Administration anxiety Metoprolol Tartrate 25 mg 10/08/20 21:00 10/19/20 08:35 Metoprolol Tartrate 25 Mg Tablet G-TUBE 25 mg BID ELIA Administration Protocol Morphine Sulfate 1 mg 10/15/20 18:34 10/18/20 23:15 Morphine Sulfate 2 Mg/Ml Cartridge IVPUSH 1 mg Q4H PRN Administration Pain or respiratory distress Nystatin 1 appl 10/11/20 21:00 10/19/20 08:57 Nystatin Powder 15 Gm Bottle TOPICAL 1 appl BID ELIA Administration Protocol Ondansetron HCl 4 mg 09/28/20 15:49 09/28/20 15:58 Ondansetron Hcl 4 Mg/2 Ml Vial IVPUSH 4 mg Q6H PRN Administration Nausea Sodium Chloride 3 ml 09/23/20 16:00 10/19/20 08:57 0.9 % Sodium Chloride Flush 3 Ml Syringe IVFLUSH 3 ml QSHIFT ELIA Administration Valproic Acid 500 mg 10/12/20 21:00 10/18/20 19:47 Valproic Acid (As Sodium Salt) 250 Mg/5 Ml Solution G-TUBE 500 mg BEDTIME ELIA Administration Valproic Acid 250 mg 10/13/20 09:00 10/19/20 08:35 Valproic Acid (As Sodium Salt) 250 Mg/5 Ml Solution PO 250 mg DAILY ELIA Administration Labs CBC & Chem 7: 10/19/20 09:45 10/19/20 09:45 Microbiology Microbiology Results: Microbiology 10/15/20 01:05 Blood - Venous Blood Culture - Preliminary No growth after 48 hours. 10/15/20 01:01 Blood - Venous Blood Culture - Preliminary No growth after 48 hours. 10/14/20 18:21 Urine Go Port Urine Culture - Final No growth. 10/04/20 21:00 Blood - Central Line Blood Culture - Final No growth after 5 days. 10/04/20 20:53 Blood - Central Line Blood Culture - Final No growth after 5 days. 10/04/20 06:56 Sputum - Suctioned Gram Stain - Final 10/04/20 06:56 Sputum - Suctioned Sputum Culture - Final Enterobacter cloacae complex 10/04/20 06:56 Urine Go Port Urine Culture - Final No growth. 09/26/20 15:00 Sputum - Suctioned Gram Stain - Final 09/26/20 15:00 Sputum - Suctioned Sputum Culture - Final Enterobacter cloacae complex 09/22/20 21:39 Blood - Venous Blood Culture - Final No growth after 5 days. 09/22/20 21:38 Blood - Venous Blood Culture - Final No growth after 5 days. 09/22/20 22:07 Urine clean catch - Clean Catch Midstream Urine Culture - Final Escherichia coli Assessment and Plan (1) Acute respiratory failure: Status: Acute Assessment and Plan: This is a 60 yo gentleman with underlying history of developmental delay, cerebral palso, spastic quadriplegia, seizure disorder, dysphasia, wheelchair-bound, prison resident who presented to the ED on 09/23/2020 with fever and vomiting. His course has been complicated by multiple episodes of respiratory failure and ultimately required PEG/Trach placement. He was due to transfer on 10/14/2020 but spiked a fever and discharge was cancelled. 1. Acute resp. failure due to recurrent aspiration now with trach and peg continue current care 2. Recurrent aspiration pneumonia multiple bouts of antibiotic course repeat temp early 1215 AM cultured again change cefepime to zosyn repeat xr - appears without any large infiltrates covid repeated today, negative 3. Seizure disorder depakote 500mg/250mg 4. E. Coli UTI completed treatment remove go 5. Moderate to Severe protein calorie malnutrition tube feeds 6. Mood continue fluoxetine prn ativan DNR/DNI (see previous documentation) DVT pptx, lovenox dispo: [facility] afebrile 48 hours called sister to give updates, went unanswered
[2020-10-19] MEDS: Piperacillin Sodium/Tazobactam 4.5 GM in 0.9 % Sodium Chloride 100 ML IV ×2 (14:19→20:17)
[2020-10-19] MEDS: Enoxaparin Sodium 40 MG/0.4 ML SYRINGE SUBCUT (14:20)
[2020-10-19 14:51] LABS: COVID-19 Test Negative (Negative); IDNOW Serial# 9DD0AD1C
--- NOTE | 2020-10-19 19:59 | PC.NURSE ---
fungal rash to bebo buttocks worse to the right side. fungal rash to bebo groin and scrotum. DR. Mao was notified regarding worsening rash on pt's buttocks. Nystatin cream ordered and applied.
[2020-10-19] MEDS: Nystatin Cream 15 GM TUBE 1 APPL TOPICAL (20:18)
[2020-10-20] VITALS (8 sets, daily range): BP systolic 100–132; BP diastolic 68–80; PULSE 58–109; RESP 16–22; TEMP 36.2–37.2; O2SAT 93–100; BMI 13.8; BMI 15.3
[2020-10-20 08:14] LABS: Hematocrit 31.7 % (42-52); Hemoglobin 9.9 g/dl (14.0-18.0); Mean Corpuscular HGB Conc 31.2 g/dl (31.0-36.0); Mean Corpuscular Hemoglobin 29.3 pg (27.0-33.0); Mean Corpuscular Volume 93.8 fL (80-98); Mean Platelet Volume 11.8 fL (9.4-12.4); Platelet Count 605 X10*3/uL (160-400); Red Blood Count 3.38 X10*6/uL (4.60-5.80); Red Cell Distribution Width 13.2 % (11.0-16.0); White Blood Count 22.1 X10*3/uL (4.8-10.8)
[2020-10-20 08:48] LABS: Anion Gap 14 (12-20); Blood Urea Nitrogen 12 mg/dL (9-16); Calcium 8.4 mg/dL (8.4-10.2); Carbon Dioxide 25 mmol/L (22-29); Chloride 101 mmol/L (96-108); Creatinine Clr Calc Pharmacy 77.1; Estimated Glomerular Filt Rate > 60; Glucose Random 107 mg/dL (60-115); Potassium 4.8 mmol/l (3.3-5.1); Sodium 135 mmol/L (135-145)
--- NOTE | 2020-10-20 10:57 | MHC.CM.PN ---
[facility] remains the goal for dc. Patient has not yet been medically cleared for dc (WBC 22.1, Temp yesterday, IV Zosyn for recurrent Aspiration PNA). CM will continue to follow for dc planning and possible need to adjust the dc plan.
--- NOTE | 2020-10-20 11:14 | MHC.CM.PN ---
KING returned a call today to DDS/ RN- Nadia @ [phone], but was only able to leave Nadia a detailed message as to what was discussed in rounds, regarding Patient's status and dc planning. CM encourage Nadia to speak with RN or MD for further clinical updates.
--- NOTE | 2020-10-20 12:03 | MHC.CLN ---
F/U PT RECEIVING OSMOLITE AT MAX GOAL RATE 40CC/HR WITH 240CC FREE WATER FLUSHES Q SHIFT TO PROVIDE 1440KCALS (30KCALS/KG), 60G PROTEIN (1.3G/KG), 1451CC TOTAL WATER FROM FORMULA AND FLUSHES (32CC/KG) NOTED FEVERS-MONITOR LYTES AND ADJUST FREE WATER NEEDED; REVIEWED LABS WNL WT 80# NEED [id number] FORMULA TO PROMOTE SLOW WT GAIN
[2020-10-20] MEDS: Piperacillin Sodium/Tazobactam 4.5 GM in 0.9 % Sodium Chloride 100 ML IV ×3 (13:50→19:33)
[2020-10-20] MEDS: Enoxaparin Sodium 40 MG/0.4 ML SYRINGE SUBCUT (13:51)
--- NOTE | 2020-10-20 13:55 | HO.PM.IMPN ---
Subjective Subjective Date of Service: 10/20/20 Interval History: seen and examined appears comfortable spiked temperature overnight again ROS unable due to patient baseline Physical Exam Vital Signs: Vital Signs: Last Vital Signs Temp 98.1 F 10/20/20 11:09 Pulse 58 10/20/20 11:09 Resp 20 10/20/20 11:09 BP 127/74 10/20/20 11:09 Pulse Ox 97 10/20/20 11:09 Body Mass Index 13.8 Const: Other: General - no acute distress, appears comfortable HEENT - trach in place Cardiovascular - regular rate and rhythm, S1-S2 Lungs - no distress Abdomen - soft, nontender, no rebound or guarding Extremities - no edema bilaterally Neuro - awake and alert, non-verbal Objective Data Current Medications Generic Name Dose Route Start Last Admin Trade Name Freq PRN Reason Stop Dose Admin Acetaminophen 650 mg 09/30/20 20:05 10/16/20 09:49 Acetaminophen Oral Liquid 650 Mg/20.3 Ml Solution OG-TUBE 650 mg Q6H PRN Administration Pain and Fever Acetaminophen 650 mg 10/02/20 21:14 10/19/20 02:46 Acetaminophen Supp 650 Mg Supp.Rect SD 650 mg Q6H PRN Administration Fever Bisacodyl 10 mg 09/28/20 14:02 10/02/20 10:04 Bisacodyl 10 Mg Supp.Rect SD 10 mg DAILY PRN Administration Constipation Enoxaparin Sodium 40 mg 10/12/20 14:00 10/20/20 13:51 Enoxaparin Sodium 40 Mg/0.4 Ml Syringe SUBCUT 40 mg Q24H ELIA Administration Famotidine 20 mg 10/09/20 09:00 10/20/20 13:32 Famotidine 20 Mg Tablet G-TUBE Not Given DAILY ELIA Fluoxetine HCl 40 mg 10/13/20 09:00 10/20/20 13:32 Fluoxetine Hcl Oral Solution 20 Mg/5 Ml Solution G-TUBE Not Given DAILY ELIA Piperacillin Sod/Tazobactam 100 mls @ 200 mls/hr 10/19/20 13:00 10/20/20 13:50 Sod 4.5 gm/ Sodium Chloride IV 200 mls/hr Q6H ELIA Administration Lactulose 30 gm 10/08/20 16:32 Lactulose 20 Gm/30 Ml Solution G-TUBE BID PRN constipation Lorazepam 0.5 mg 10/18/20 20:10 10/19/20 02:41 Lorazepam 2 Mg/Ml Vial IV 0.5 mg Q4H PRN Administration anxiety Metoprolol Tartrate 25 mg 10/08/20 21:00 10/20/20 13:32 Metoprolol Tartrate 25 Mg Tablet G-TUBE Not Given BID [facility] Protocol Morphine Sulfate 1 mg 10/15/20 18:34 10/18/20 23:15 Morphine Sulfate 2 Mg/Ml Cartridge IVPUSH 1 mg Q4H PRN Administration Pain or respiratory distress Nystatin 1 appl 10/11/20 21:00 10/20/20 13:37 Nystatin Powder 15 Gm Bottle TOPICAL Not Given BID [facility] Protocol Nystatin 1 appl 10/19/20 21:00 10/20/20 13:32 Nystatin Cream 15 Gm Tube TOPICAL Not Given BID [facility] Protocol Ondansetron HCl 4 mg 09/28/20 15:49 09/28/20 15:58 Ondansetron Hcl 4 Mg/2 Ml Vial IVPUSH 4 mg Q6H PRN Administration Nausea Sodium Chloride 3 ml 09/23/20 16:00 10/20/20 13:32 0.9 % Sodium Chloride Flush 3 Ml Syringe IVFLUSH Not Given QSHIFT [facility] Valproic Acid 500 mg 10/12/20 21:00 10/19/20 20:17 Valproic Acid (As Sodium Salt) 250 Mg/5 Ml Solution G-TUBE 500 mg BEDTIME ELIA Administration Valproic Acid 250 mg 10/13/20 09:00 10/20/20 13:38 Valproic Acid (As Sodium Salt) 250 Mg/5 Ml Solution PO Not Given DAILY [facility] Labs CBC & Chem 7: 10/20/20 07:42 10/20/20 07:42 Microbiology Microbiology Results: Microbiology 10/19/20 09:45 Blood - Venous Blood Culture - Preliminary No growth after 24 hours. 10/19/20 09:45 Blood - Venous Blood Culture - Preliminary No growth after 24 hours. 10/15/20 01:05 Blood - Venous Blood Culture - Final No growth after 5 days. 10/15/20 01:01 Blood - Venous Blood Culture - Final No growth after 5 days. 10/14/20 18:21 Urine Go Port Urine Culture - Final No growth. 10/04/20 21:00 Blood - Central Line Blood Culture - Final No growth after 5 days. 10/04/20 20:53 Blood - Central Line Blood Culture - Final No growth after 5 days. 10/04/20 06:56 Sputum - Suctioned Gram Stain - Final 10/04/20 06:56 Sputum - Suctioned Sputum Culture - Final Enterobacter cloacae complex 10/04/20 06:56 Urine Go Port Urine Culture - Final No growth. 09/26/20 15:00 Sputum - Suctioned Gram Stain - Final 09/26/20 15:00 Sputum - Suctioned Sputum Culture - Final Enterobacter cloacae complex 09/22/20 21:39 Blood - Venous Blood Culture - Final No growth after 5 days. 09/22/20 21:38 Blood - Venous Blood Culture - Final No growth after 5 days. 09/22/20 22:07 Urine clean catch - Clean Catch Midstream Urine Culture - Final Escherichia coli Assessment and Plan (1) Acute respiratory failure: Status: Acute Assessment and Plan: This is a 60 yo gentleman with underlying history of developmental delay, cerebral palso, spastic quadriplegia, seizure disorder, dysphasia, wheelchair-bound, alf resident who presented to the ED on 09/23/2020 with fever and vomiting. His course has been complicated by multiple episodes of respiratory failure and ultimately required PEG/Trach placement. He was due to transfer on 10/14/2020 but spiked a fever and discharge was cancelled. 1. Acute resp. failure due to recurrent aspiration now with trach and peg continue current care 2. Recurrent aspiration pneumonia multiple bouts of antibiotic course repeat temp early 12/15 AM cultured again change cefepime to zosyn cxr and covid negative if afebrile 48 hours, plan to transfer to [facility] 3. Seizure disorder depakote 500mg/250mg 4. E. Coli UTI completed treatment go removed 5. Moderate to Severe protein calorie malnutrition tube feeds 6. Mood continue fluoxetine prn ativan DNR/DNI DVT pptx, lovenox dispo: LTAC, hopefully tomorrow d/w his sister Sharri on the phone today and updates given -- reaffirms DNR status
[2020-10-20] MEDS: 0.9 % Sodium Chloride Flush 3 ML SYRINGE IVFLUSH ×2 (16:57)
[2020-10-20] MEDS: Metoprolol Tartrate 25 MG TABLET G-TUBE (21:21)
[2020-10-20] MEDS: Nystatin Powder 15 GM BOTTLE 1 APPL TOPICAL (21:22)
[2020-10-20] MEDS: Nystatin Cream 15 GM TUBE 1 APPL TOPICAL (21:22)
[2020-10-21] VITALS (9 sets, daily range): BP systolic 112–153; BP diastolic 55–87; PULSE 100–120; RESP 17–20; TEMP 35.5–38.1; O2SAT 97–100; BMI 14.0
--- NOTE | 2020-10-21 | CT_ITS ---
EXAMINATION: CT CHEST WITHOUT CONTRAST CLINICAL INFORMATION: Leukocytosis. Evaluate for pneumonia. COMPARISON: Previous chest x-rays most recent 10/19/2020 TECHNIQUE: Multidetector volumetric CT imaging of the chest was done. Axial MIP volume rendering provided. Sagittal and coronal reformatted images were obtained. This CT examination was performed using dose optimization techniques as appropriate, variously including the following: *Automated exposure control *Adjustment of mA and/or kV according to patient size (this includes techniques or standardized protocols for targeted exams where dose is matched to indication/reason for exam; i.e. extremities or head) *Use of iterative reconstruction technique DLP: 127 mGy-cm FINDINGS: DESK LIEUTENANT: Tracheostomy tube and G-tube. LUNGS: There is a tracheostomy with tip 3.3 cm above the milind. The lungs are clear without evidence of a pneumonia. MEDIASTINUM: The mediastinum is normal. PLEURA: There is no pleural effusion. No pleural mass or thickening. AXILLA: No lymphadenopathy. UPPER ABDOMEN: Unremarkable. OSSEOUS STRUCTURES: There is increased thoracic kyphosis and curvature of the lower thoracic spine to the right. There are multiple old-appearing mid and lower thoracic vertebral body compression fractures. There is question of old trauma to the sternum as well. CT/CT chest wo con IMPRESSION: No evidence of pneumonia.
[2020-10-21] MEDS: Piperacillin Sodium/Tazobactam 4.5 GM in 0.9 % Sodium Chloride 100 ML IV ×4 (00:21→20:00)
[2020-10-21] MEDS: 0.9 % Sodium Chloride Flush 3 ML SYRINGE IVFLUSH ×2 (00:25→11:14)
[2020-10-21] MEDS: Metoprolol Tartrate 25 MG TABLET G-TUBE ×2 (11:14→21:35)
[2020-10-21] MEDS: Famotidine 20 MG TABLET G-TUBE (11:14)
[2020-10-21] MEDS: FLUoxetine HCl Oral Solution 20 MG/5 ML SOLUTION 40 MG G-TUBE (11:15)
[2020-10-21] MEDS: Nystatin Cream 15 GM TUBE 1 APPL TOPICAL ×2 (11:16→21:36)
[2020-10-21] MEDS: Nystatin Powder 15 GM BOTTLE 1 APPL TOPICAL ×2 (11:16→21:36)
--- NOTE | 2020-10-21 11:42 | PC.NURSE ---
Trach care given this morning after pt coughing and mucous plugging. Large amounts of pink thick sputum noted. Pt suctioned without ability to clear mucous plug. Inner cannula changed out with mucus plug attached to the old one. Pt now with less coughing. Sats remained hgh 90s on trach collar at that time. Pt in distress when staff touch trach. Sutures reddened. notified. at [facility] for removal of trach sutures.
[2020-10-21 12:31] LABS: Hematocrit 30.6 % (42-52); Hemoglobin 9.7 g/dl (14.0-18.0); Mean Corpuscular HGB Conc 31.7 g/dl (31.0-36.0); Mean Corpuscular Hemoglobin 29.6 pg (27.0-33.0); Mean Corpuscular Volume 93.3 fL (80-98); Mean Platelet Volume 11.5 fL (9.4-12.4); Platelet Count 639 X10*3/uL (160-400); Red Blood Count 3.28 X10*6/uL (4.60-5.80); Red Cell Distribution Width 13.2 % (11.0-16.0); White Blood Count 24.1 X10*3/uL (4.8-10.8)
--- NOTE | 2020-10-21 12:32 | MHC.CM.PN ---
CM updated referral to [facility], who is unable to accept Patient today, r/t Patient's upward trending WBC. is requesting another ID consult and drawing more labs. CM will continue to follow for dc planning.
--- NOTE | 2020-10-21 13:19 | P.EN_ITS ---
Event Note Date of Service: 10/21/20 Event Note: Requested by nursing staff to remove suture from tracheostomy site Patient being planned to be discharged to care home tomorrow Sutures removed without incident PEG tube in place as well, functioning well
[2020-10-21] MEDS: Enoxaparin Sodium 40 MG/0.4 ML SYRINGE SUBCUT (14:17)
--- NOTE | 2020-10-21 17:44 | HO.PM.IMPN ---
Subjective Subjective Date of Service: 10/21/20 Interval History: seen and examined no further temps ROS unable due to patient baseline Physical Exam Vital Signs: Vital Signs: Last Vital Signs Temp 98.9 F 10/21/20 15:44 Pulse 112 H 10/21/20 15:44 Resp 18 10/21/20 15:44 BP 127/78 10/21/20 15:44 Pulse Ox 100 10/21/20 15:44 Body Mass Index 14.0 Const: Other: General - no acute distress, appears comfortable HEENT - trach in place Cardiovascular - regular rate and rhythm, S1-S2 Lungs - no distress Abdomen - soft, nontender, no rebound or guarding Extremities - no edema bilaterally Neuro - awake and alert, non-verbal Objective Data Current Medications Generic Name Dose Route Start Last Admin Trade Name Freq PRN Reason Stop Dose Admin Acetaminophen 650 mg 09/30/20 20:05 10/16/20 09:49 Acetaminophen Oral Liquid 650 Mg/20.3 Ml Solution OG-TUBE 650 mg Q6H PRN Administration Pain and Fever Acetaminophen 650 mg 10/02/20 21:14 10/19/20 02:46 Acetaminophen Supp 650 Mg Supp.Rect NE 650 mg Q6H PRN Administration Fever Bisacodyl 10 mg 09/28/20 14:02 10/02/20 10:04 Bisacodyl 10 Mg Supp.Rect NE 10 mg DAILY PRN Administration Constipation Enoxaparin Sodium 40 mg 10/12/20 14:00 10/21/20 14:17 Enoxaparin Sodium 40 Mg/0.4 Ml Syringe SUBCUT 40 mg Q24H ELIA Administration Famotidine 20 mg 10/09/20 09:00 10/21/20 11:14 Famotidine 20 Mg Tablet G-TUBE 20 mg DAILY ELIA Administration Fluoxetine HCl 40 mg 10/13/20 09:00 10/21/20 11:15 Fluoxetine Hcl Oral Solution 20 Mg/5 Ml Solution G-TUBE 40 mg DAILY ELIA Administration Piperacillin Sod/Tazobactam 100 mls @ 200 mls/hr 10/19/20 13:00 10/21/20 15:43 Sod 4.5 gm/ Sodium Chloride IV Infused Q6H ELIA Infusion Lactulose 30 gm 10/08/20 16:32 Lactulose 20 Gm/30 Ml Solution G-TUBE BID PRN constipation Lorazepam 0.5 mg 10/18/20 20:10 10/19/20 02:41 Lorazepam 2 Mg/Ml Vial IV 0.5 mg Q4H PRN Administration anxiety Metoprolol Tartrate 25 mg 10/08/20 21:00 10/21/20 11:14 Metoprolol Tartrate 25 Mg Tablet G-TUBE 25 mg BID ELIA Administration Protocol Nystatin 1 appl 10/11/20 21:00 10/21/20 11:16 Nystatin Powder 15 Gm Bottle TOPICAL 1 appl BID ELIA Administration Protocol Nystatin 1 appl 10/19/20 21:00 10/21/20 11:16 Nystatin Cream 15 Gm Tube TOPICAL 1 appl BID ELIA Administration Protocol Ondansetron HCl 4 mg 09/28/20 15:49 09/28/20 15:58 Ondansetron Hcl 4 Mg/2 Ml Vial IVPUSH 4 mg Q6H PRN Administration Nausea Sodium Chloride 3 ml 09/23/20 16:00 10/21/20 11:14 0.9 % Sodium Chloride Flush 3 Ml Syringe IVFLUSH 3 ml QSHIFT ELIA Administration Valproic Acid 500 mg 10/12/20 21:00 10/20/20 21:21 Valproic Acid (As Sodium Salt) 250 Mg/5 Ml Solution G-TUBE 500 mg BEDTIME ELIA Administration Valproic Acid 250 mg 10/13/20 09:00 10/21/20 11:14 Valproic Acid (As Sodium Salt) 250 Mg/5 Ml Solution PO 250 mg DAILY ELIA Administration Labs CBC & Chem 7: 10/21/20 12:18 10/20/20 07:42 Microbiology Microbiology Results: Microbiology 10/19/20 09:45 Blood - Venous Blood Culture - Preliminary No growth after 48 hours. 10/19/20 09:45 Blood - Venous Blood Culture - Preliminary No growth after 48 hours. 10/15/20 01:05 Blood - Venous Blood Culture - Final No growth after 5 days. 10/15/20 01:01 Blood - Venous Blood Culture - Final No growth after 5 days. 10/14/20 18:21 Urine Go Port Urine Culture - Final No growth. 10/04/20 21:00 Blood - Central Line Blood Culture - Final No growth after 5 days. 10/04/20 20:53 Blood - Central Line Blood Culture - Final No growth after 5 days. 10/04/20 06:56 Sputum - Suctioned Gram Stain - Final 10/04/20 06:56 Sputum - Suctioned Sputum Culture - Final Enterobacter cloacae complex 10/04/20 06:56 Urine Go Port Urine Culture - Final No growth. 09/26/20 15:00 Sputum - Suctioned Gram Stain - Final 09/26/20 15:00 Sputum - Suctioned Sputum Culture - Final Enterobacter cloacae complex 09/22/20 21:39 Blood - Venous Blood Culture - Final No growth after 5 days. 09/22/20 21:38 Blood - Venous Blood Culture - Final No growth after 5 days. 09/22/20 22:07 Urine clean catch - Clean Catch Midstream Urine Culture - Final Escherichia coli Assessment and Plan (1) Acute respiratory failure: Status: Acute Assessment and Plan: This is a 60 yo gentleman with underlying history of developmental delay, cerebral palso, spastic quadriplegia, seizure disorder, dysphasia, wheelchair-bound, intermediate resident who presented to the ED on 09/23/2020 with fever and vomiting. His course has been complicated by multiple episodes of respiratory failure and ultimately required PEG/Trach placement. He was due to transfer on 10/14/2020 but spiked a fever and discharge was cancelled. 1. Acute resp. failure due to recurrent aspiration now with trach and peg continue current care 2. Recurrent aspiration pneumonia multiple bouts of antibiotic course repeat temp early 1215 AM, afebrile > 48 hours and cultures negative from the leukocytosis persists, likely leukomoid [facility] unable to take today due to this -- will have repeat ID consult per their request. Will check CT chest (although CXR have been negative x 2 this week) zosyn for now 3. Seizure disorder depakote 500mg/250mg 4. E. Coli UTI completed treatment go removed 5. Moderate to Severe protein calorie malnutrition tube feeds 6. Mood continue fluoxetine prn ativan DNR/DNI DVT pptx, lovenox dispo: LTAC once accpeted by [facility]
[2020-10-22] VITALS (11 sets, daily range): BP systolic 106–137; BP diastolic 54–76; PULSE 108–133; RESP 18–20; TEMP 36.4–37.9; O2SAT 92–100; BMI 14.5
--- NOTE | 2020-10-22 | ECG_ITS ---
Test Reason : r/o any underlyin arrythmia Blood Pressure : / mmHG Vent. Rate : 132 BPM Atrial Rate : 300 BPM P-R Int : 080 ms QRS Dur : 068 ms QT Int : 312 ms P-R-T Axes : 066 048 053 degrees QTc Int : 462 ms Poor data quality Sinus tachycardia No previous ECGs available Referred By: Mckay Cardenas Electronically Signed By:Phil Kemp
[2020-10-22] MEDS: 0.9 % Sodium Chloride Flush 3 ML SYRINGE IVFLUSH ×4 (00:10→15:26)
[2020-10-22] MEDS: Piperacillin Sodium/Tazobactam 4.5 GM in 0.9 % Sodium Chloride 100 ML IV ×3 (00:10→12:29)
[2020-10-22] MEDS: Nystatin Cream 15 GM TUBE 1 APPL TOPICAL ×2 (09:18→20:53)
[2020-10-22] MEDS: Nystatin Powder 15 GM BOTTLE 1 APPL TOPICAL ×2 (09:18→20:53)
[2020-10-22] MEDS: Metoprolol Tartrate 25 MG TABLET G-TUBE ×2 (09:20→20:53)
[2020-10-22] MEDS: FLUoxetine HCl Oral Solution 20 MG/5 ML SOLUTION 40 MG G-TUBE (09:20)
[2020-10-22] MEDS: Famotidine 20 MG TABLET G-TUBE (09:20)
[2020-10-22 09:26] LABS: Hematocrit 31.4 % (42-52); Mean Corpuscular HGB Conc 31.8 g/dl (31.0-36.0); Mean Corpuscular Hemoglobin 29.5 pg (27.0-33.0); Mean Corpuscular Volume 92.6 fL (80-98); Mean Platelet Volume 11.6 fL (9.4-12.4); Platelet Count 686 X10*3/uL (160-400); Red Blood Count 3.39 X10*6/uL (4.60-5.80); Red Cell Distribution Width 13.1 % (11.0-16.0); White Blood Count 24.3 X10*3/uL (4.8-10.8)
--- NOTE | 2020-10-22 11:36 | MHC.CLN ---
F/U PT RECEIVING OSMOLITE AT MAX GOAL RATE 40CC/HR WITH 240CC FREE WATER FLUSHES Q SHIFT TO PROVIDE 1440KCALS (30KCALS/KG), 60G PROTEIN (1.3G/KG), 1451CC TOTAL WATER FROM FORMULA AND FLUSHES (32CC/KG) MONITOR LYTES AND ADJUST FREE WATER NEEDED; REVIEWED LABS WNL WT UP 4#-TF FORMULA TO PROMOTE SLOW WT GAIN FOLLOWING
[2020-10-22] MEDS: Enoxaparin Sodium 40 MG/0.4 ML SYRINGE SUBCUT (12:31)
--- NOTE | 2020-10-22 13:15 | MHC.CM.PN ---
Today's WBC is 24.3 and ID consult is still pending. Goal for dc continues to be [facility] and CM will continue to follow for dc planning.
--- NOTE | 2020-10-22 14:45 | P.PNIM_ITS ---
Subjective Subjective Date of Service: 10/22/20 Interval History: seen and examined no further temps appears comfortable ROS unable due to patient baseline Physical Exam Vital Signs: Vital Signs: Last Vital Signs Temp 98.1 F 10/22/20 11:43 Pulse 120 H 10/22/20 11:43 Resp 18 10/22/20 11:43 BP 106/54 L 10/22/20 11:57 Pulse Ox 100 10/22/20 11:43 Body Mass Index 14.5 Const: Other: General - no acute distress, appears comfortable HEENT - trach in place Cardiovascular - regular rate and rhythm, S1-S2 Lungs - no distress Abdomen - soft, nontender, no rebound or guarding Extremities - no edema bilaterally Neuro - awake and alert, non-verbal Objective Data Current Medications Generic Name Dose Route Start Last Admin Trade Name Freq PRN Reason Stop Dose Admin Acetaminophen 650 mg 09/30/20 20:05 10/16/20 09:49 Acetaminophen Oral Liquid 650 Mg/20.3 Ml Solution OG-TUBE 650 mg Q6H PRN Administration Pain and Fever Acetaminophen 650 mg 10/02/20 21:14 10/19/20 02:46 Acetaminophen Supp 650 Mg Supp.Rect MA 650 mg Q6H PRN Administration Fever Bisacodyl 10 mg 09/28/20 14:02 10/02/20 10:04 Bisacodyl 10 Mg Supp.Rect MA 10 mg DAILY PRN Administration Constipation Enoxaparin Sodium 40 mg 10/12/20 14:00 10/22/20 12:31 Enoxaparin Sodium 40 Mg/0.4 Ml Syringe SUBCUT 40 mg Q24H ELIA Administration Famotidine 20 mg 10/09/20 09:00 10/22/20 09:20 Famotidine 20 Mg Tablet G-TUBE 20 mg DAILY ELIA Administration Fluoxetine HCl 40 mg 10/13/20 09:00 10/22/20 09:20 Fluoxetine Hcl Oral Solution 20 Mg/5 Ml Solution G-TUBE 40 mg DAILY ELIA Administration Piperacillin Sod/Tazobactam 100 mls @ 200 mls/hr 10/19/20 13:00 10/22/20 13:04 Sod 4.5 gm/ Sodium Chloride IV Infused Q6H ELIA Infusion Lactulose 30 gm 10/08/20 16:32 Lactulose 20 Gm/30 Ml Solution G-TUBE BID PRN constipation Lorazepam 0.5 mg 10/18/20 20:10 10/19/20 02:41 Lorazepam 2 Mg/Ml Vial IV 0.5 mg Q4H PRN Administration anxiety Metoprolol Tartrate 25 mg 10/08/20 21:00 10/22/20 09:20 Metoprolol Tartrate 25 Mg Tablet G-TUBE 25 mg BID ELIA Administration Protocol Nystatin 1 appl 10/11/20 21:00 10/22/20 09:18 Nystatin Powder 15 Gm Bottle TOPICAL 1 appl BID ELIA Administration Protocol Nystatin 1 appl 10/19/20 21:00 10/22/20 09:18 Nystatin Cream 15 Gm Tube TOPICAL 1 appl BID ELIA Administration Protocol Ondansetron HCl 4 mg 09/28/20 15:49 09/28/20 15:58 Ondansetron Hcl 4 Mg/2 Ml Vial IVPUSH 4 mg Q6H PRN Administration Nausea Sodium Chloride 3 ml 09/23/20 16:00 10/22/20 09:18 0.9 % Sodium Chloride Flush 3 Ml Syringe IVFLUSH 3 ml QSHIFT ELIA Administration Valproic Acid 500 mg 10/12/20 21:00 10/21/20 21:35 Valproic Acid (As Sodium Salt) 250 Mg/5 Ml Solution G-TUBE 500 mg BEDTIME ELIA Administration Valproic Acid 250 mg 10/13/20 09:00 10/22/20 09:21 Valproic Acid (As Sodium Salt) 250 Mg/5 Ml Solution PO 250 mg DAILY ELIA Administration Labs CBC & Chem 7: 10/22/20 09:06 10/20/20 07:42 Labs: CT chest 10/21/2020 IMPRESSION: No evidence of pneumonia. Microbiology Microbiology Results: Microbiology 10/19/20 09:45 Blood - Venous Blood Culture - Preliminary No growth after 48 hours. 10/19/20 09:45 Blood - Venous Blood Culture - Preliminary No growth after 48 hours. 10/15/20 01:05 Blood - Venous Blood Culture - Final No growth after 5 days. 10/15/20 01:01 Blood - Venous Blood Culture - Final No growth after 5 days. 10/14/20 18:21 Urine Go Port Urine Culture - Final No growth. 10/04/20 21:00 Blood - Central Line Blood Culture - Final No growth after 5 days. 10/04/20 20:53 Blood - Central Line Blood Culture - Final No growth after 5 days. 10/04/20 06:56 Sputum - Suctioned Gram Stain - Final 10/04/20 06:56 Sputum - Suctioned Sputum Culture - Final Enterobacter cloacae complex 10/04/20 06:56 Urine Go Port Urine Culture - Final No growth. 09/26/20 15:00 Sputum - Suctioned Gram Stain - Final 09/26/20 15:00 Sputum - Suctioned Sputum Culture - Final Enterobacter cloacae complex 09/22/20 21:39 Blood - Venous Blood Culture - Final No growth after 5 days. 09/22/20 21:38 Blood - Venous Blood Culture - Final No growth after 5 days. 09/22/20 22:07 Urine clean catch - Clean Catch Midstream Urine Culture - Final Escherichia coli Assessment and Plan (1) Acute respiratory failure: Status: Acute Assessment and Plan: This is a 60 yo gentleman with underlying history of developmental delay, cerebral palso, spastic quadriplegia, seizure disorder, dysphasia, wheelchair- bound, retirement resident who presented to the ED on 09/23/2020 with fever and vomiting. His course has been complicated by multiple episodes of respiratory failure and ultimately required PEG/Trach placement. He was due to transfer on 10/14/2020 but spiked a fever and discharge was cancelled. 1. Acute resp. failure due to recurrent aspiration now with trach and peg continue current care 2. 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 Seizure disorder depakote 500mg/250mg 4. E. Coli UTI completed treatment go removed 5. Moderate to Severe protein calorie malnutrition tube feeds 6. Mood continue fluoxetine prn ativan DNR/DNI DVT pptx, lovenox dispo: LTAC once accpeted by Baljit
[2020-10-22] MEDS: LORazepam 2 MG/ML VIAL 0.5 MG IV (15:25)
[2020-10-22] MEDS: Acetaminophen Oral Liquid 650 MG/20.3 ML SOLUTION OG-TUBE (16:01)
--- NOTE | 2020-10-22 16:23 | PM.IDPN ---
Subjective Subjective Date of Service: 10/22/20 Interval History: some frothy redness from trach mask Objective Data Labs CBC & Chem 7: 10/22/20 09:06 10/20/20 07:42 Labs: Laboratory Results - last 24 hr 10/22/20 09:06 WBC 24.3 H RBC 3.39 L Hgb 10.0 L Hct 31.4 L MCV 92.6 MCH 29.5 MCHC 31.8 RDW 13.1 Plt Count 686 H MPV 11.6 Absolute Nucleated RBC 0.000 Nucleated RBC % (auto) 0.0 Microbiology Microbiology Results: Microbiology 10/19/20 09:45 Blood - Venous Blood Culture - Preliminary No growth after 48 hours. 10/19/20 09:45 Blood - Venous Blood Culture - Preliminary No growth after 48 hours. 10/15/20 01:05 Blood - Venous Blood Culture - Final No growth after 5 days. 10/15/20 01:01 Blood - Venous Blood Culture - Final No growth after 5 days. 10/14/20 18:21 Urine [place] Urine Culture - Final No growth. 10/04/20 21:00 Blood - Central Line Blood Culture - Final No growth after 5 days. 10/04/20 20:53 Blood - Central Line Blood Culture - Final No growth after 5 days. 10/04/20 06:56 Sputum - Suctioned Gram Stain - Final 10/04/20 06:56 Sputum - Suctioned Sputum Culture - Final Enterobacter cloacae complex 10/04/20 06:56 Urine [place] Urine Culture - Final No growth. 09/26/20 15:00 Sputum - Suctioned Gram Stain - Final 09/26/20 15:00 Sputum - Suctioned Sputum Culture - Final Enterobacter cloacae complex 09/22/20 21:39 Blood - Venous Blood Culture - Final No growth after 5 days. 09/22/20 21:38 Blood - Venous Blood Culture - Final No growth after 5 days. 09/22/20 22:07 Urine clean catch - Clean Catch Midstream Urine Culture - Final Escherichia coli Physical Exam Vital Signs: Vital Signs: Last Vital Signs Temp 98.1 F 10/22/20 11:43 Pulse 120 H 10/22/20 11:43 Resp 18 10/22/20 11:43 BP 106/54 L 10/22/20 11:57 Pulse Ox 100 10/22/20 11:43 Body Mass Index 14.5 Const: General: cooperative HENMT: Head: Yes normal to inspection Resp: Effort & Inspection: normal respiratory effort Cardio: Rate: regular rate Rhythm: regular rhythm GI: Inspection: Yes normal to inspection Palpation (GI): nontender Assessment and Plan Assessment and plan (1) Acute respiratory failure: Status: Acute (2) H/O tracheostomy: Problem details: Patient with leukocytosis Unremarkable testing Probable leukemoid reaction Status: Acute Assessment and Plan: Would stop antibiotics over weekend on discharge Time Spent With Patient Time: Total time spent is greater than 50% in coordination of care (as documented) at patient's floor/unit and/or counseling patient: Time with patient: less than 15 minutes
[2020-10-22] MEDS: Morphine Sulfate 2 MG/ML CARTRIDGE IVPUSH (18:11)
[2020-10-22] MEDS: Metoprolol Tartrate 5 MG/5 ML VIAL 2.5 MG IVPUSH (20:46)
[2020-10-23] VITALS (7 sets, daily range): BP systolic 107–135; BP diastolic 55–84; PULSE 107–137; RESP 18–26; TEMP 36.9–37.3; O2SAT 93–100
[2020-10-23] MEDS: 0.9 % Sodium Chloride Flush 3 ML SYRINGE IVFLUSH ×4 (01:33→23:53)
[2020-10-23] MEDS: Famotidine 20 MG TABLET G-TUBE (08:44)
[2020-10-23] MEDS: Metoprolol Tartrate 25 MG TABLET G-TUBE ×2 (08:44→20:53)
[2020-10-23] MEDS: Nystatin Powder 15 GM BOTTLE 1 APPL TOPICAL ×2 (08:45→20:56)
[2020-10-23] MEDS: FLUoxetine HCl Oral Solution 20 MG/5 ML SOLUTION 40 MG G-TUBE (08:45)
[2020-10-23] MEDS: Nystatin Cream 15 GM TUBE 1 APPL TOPICAL ×2 (08:45→20:55)
[2020-10-23 09:04] LABS: Hematocrit 31.5 % (42-52); Hemoglobin 9.9 g/dl (14.0-18.0); Mean Corpuscular HGB Conc 31.4 g/dl (31.0-36.0); Mean Corpuscular Volume 92.4 fL (80-98); Mean Platelet Volume 11.7 fL (9.4-12.4); Platelet Count 683 X10*3/uL (160-400); Red Blood Count 3.41 X10*6/uL (4.60-5.80); White Blood Count 21.4 X10*3/uL (4.8-10.8)
[2020-10-23] MEDS: LORazepam 2 MG/ML VIAL 0.5 MG IV (13:41)
--- NOTE | 2020-10-23 13:43 | P.PNIM_ITS ---
Subjective Subjective Date of Service: 10/23/20 Interval History: seen and examined no new issues doesnt appear to be in distress ROS unable due to patient baseline Physical Exam Vital Signs: Vital Signs: Last Vital Signs Temp 98.7 F 10/23/20 11:47 Pulse 107 H 10/23/20 11:47 Resp 18 10/23/20 11:47 BP 107/62 10/23/20 11:47 Pulse Ox 100 10/23/20 11:47 Body Mass Index 14.5 Const: Other: General - no acute distress, appears comfortable HEENT - trach in place Cardiovascular - regular rate and rhythm, S1-S2 Lungs - no distress Abdomen - soft, nontender, no rebound or guarding Extremities - no edema bilaterally Neuro - awake and alert, non-verbal Objective Data Current Medications Generic Name Dose Route Start Last Admin Trade Name Freq PRN Reason Stop Dose Admin Acetaminophen 650 mg 09/30/20 20:05 10/22/20 16:01 Acetaminophen Oral Liquid 650 Mg/20.3 Ml Solution OG-TUBE 650 mg Q6H PRN Administration Pain and Fever Acetaminophen 650 mg 10/02/20 21:14 10/19/20 02:46 Acetaminophen Supp [address] 650 mg Q6H PRN Administration Fever Bisacodyl 10 mg 09/28/20 14:02 10/02/20 10:04 Bisacodyl [address] 10 mg DAILY PRN Administration Constipation Enoxaparin Sodium 40 mg 10/12/20 14:00 10/22/20 12:31 Enoxaparin Sodium 40 Mg/0.4 Ml Syringe SUBCUT 40 mg Q24H ELIA Administration Famotidine 20 mg 10/09/20 09:00 10/23/20 08:44 Famotidine 20 Mg Tablet G-TUBE 20 mg DAILY ELIA Administration Fluoxetine HCl 40 mg 10/13/20 09:00 10/23/20 08:45 Fluoxetine Hcl Oral Solution 20 Mg/5 Ml Solution G-TUBE 40 mg DAILY ELIA Administration Lactulose 30 gm 10/08/20 16:32 Lactulose 20 Gm/30 Ml Solution G-TUBE BID PRN constipation Lorazepam 0.5 mg 10/18/20 20:10 10/23/20 13:41 Lorazepam 2 Mg/Ml Vial IV 0.5 mg Q4H PRN Administration anxiety Metoprolol Tartrate 25 mg 10/08/20 21:00 10/23/20 08:44 Metoprolol Tartrate 25 Mg Tablet G-TUBE 25 mg BID ELIA Administration Protocol Morphine Sulfate 2 mg 10/22/20 18:03 10/22/20 18:11 Morphine Sulfate 2 Mg/Ml Cartridge IVPUSH 2 mg Q4H PRN Administration pain / respiratory distress Nystatin 1 appl 10/11/20 21:00 10/23/20 08:45 Nystatin Powder 15 Gm Bottle TOPICAL 1 appl BID ELIA Administration Protocol Nystatin 1 appl 10/19/20 21:00 10/23/20 08:45 Nystatin Cream 15 Gm Tube TOPICAL 1 appl BID ELIA Administration Protocol Ondansetron HCl 4 mg 09/28/20 15:49 09/28/20 15:58 Ondansetron Hcl 4 Mg/2 Ml Vial IVPUSH 4 mg Q6H PRN Administration Nausea Sodium Chloride 3 ml 09/23/20 16:00 10/23/20 10:10 0.9 % Sodium Chloride Flush 3 Ml Syringe IVFLUSH 3 ml QSHIFT ELIA Administration Valproic Acid 500 mg 10/12/20 21:00 10/22/20 20:53 Valproic Acid (As Sodium Salt) 250 Mg/5 Ml Solution G-TUBE 500 mg BEDTIME ELIA Administration Valproic Acid 250 mg 10/13/20 09:00 10/23/20 08:45 Valproic Acid (As Sodium Salt) 250 Mg/5 Ml Solution PO 250 mg DAILY ELIA Administration Labs CBC & Chem 7: 10/23/20 08:24 10/20/20 07:42 Microbiology Microbiology Results: Microbiology 10/19/20 09:45 Blood - Venous Blood Culture - Preliminary No growth after 48 hours. 10/19/20 09:45 Blood - Venous Blood Culture - Preliminary No growth after 48 hours. 10/15/20 01:05 Blood - Venous Blood Culture - Final No growth after 5 days. 10/15/20 01:01 Blood - Venous Blood Culture - Final No growth after 5 days. 10/14/20 18:21 Urine Go Port Urine Culture - Final No growth. 10/04/20 21:00 Blood - Central Line Blood Culture - Final No growth after 5 days. 10/04/20 20:53 Blood - Central Line Blood Culture - Final No growth after 5 days. 10/04/20 06:56 Sputum - Suctioned Gram Stain - Final 10/04/20 06:56 Sputum - Suctioned Sputum Culture - Final Enterobacter cloacae complex 10/04/20 06:56 Urine Go Port Urine Culture - Final No growth. 09/26/20 15:00 Sputum - Suctioned Gram Stain - Final 09/26/20 15:00 Sputum - Suctioned Sputum Culture - Final Enterobacter cloacae complex 09/22/20 21:39 Blood - Venous Blood Culture - Final No growth after 5 days. 09/22/20 21:38 Blood - Venous Blood Culture - Final No growth after 5 days. 09/22/20 22:07 Urine clean catch - Clean Catch Midstream Urine Culture - Final Escherichia coli Assessment and Plan (1) Acute respiratory failure: Status: Acute Assessment and Plan: This is a 60 yo gentleman with underlying history of developmental delay, cerebral palso, spastic quadriplegia, seizure disorder, dysphasia, wheelchair- bound, nursing home resident who presented to the ED on 09/23/2020 with fever and vomiting. His course has been complicated by multiple episodes of respiratory failure and ultimately required PEG/Trach placement. He was due to transfer on 10/14/2020 but spiked a fever and discharge was cancelled. 1. Acute resp. failure due to recurrent aspiration now with trach and peg continue current care 2. Recurrent aspiration pneumonia resolved, CT chest done -- no pneumonia antibiotics discontinued 10/22/2020, completed multiple course Leukocytosis likely due to leukemoid 3. Seizure disorder depakote 500mg/250mg 4. E. Coli UTI completed treatment go removed 5. Moderate to Severe protein calorie malnutrition tube feeds 6. Mood continue fluoxetine prn ativan DNR/DNI DVT pptx, lovenox dispo: LTAC, new referrals being sent out as current LTAC ([facility]) has refused
[2020-10-23] MEDS: Enoxaparin Sodium 40 MG/0.4 ML SYRINGE SUBCUT (13:53)
--- NOTE | 2020-10-23 14:16 | MHC.CM.PN ---
Pt cleared to DC earlier in the week, per notes, [facility] concerned about labs and requesting a follow up ID consult. Follow up consult completed and note sent to [facility]. Referral also sent to other LTAC's to determine if they would be able to offer a bed this weekend. CM awaiting responses.
--- NOTE | 2020-10-23 14:25 | PC.NURSE ---
Patient appears anxious and restless with increased restlessness during patient care. PRN Ativan given for anxiety with good effect. Patient appears to be resting comfortable with eyes closed and less fidgety. Tracheotomy care provided. Suctioned patient once this morning and this afternoon. Removed moderate amounts of thick hill, slightly blood tinged mucus plugs/secretions. RT at bedside to assist with replacing disposable 8 portex inner cannula. Patient tolerated fair. Humidification remains in place. DSG change provided. MD notified.
[2020-10-24] VITALS (11 sets, daily range): BP systolic 119–140; BP diastolic 70–89; PULSE 74–130; RESP 18–24; TEMP 36.8–36.9; O2SAT 91–100; BMI 14.4
--- NOTE | 2020-10-24 | CT_ITS ---
EXAMINATION: CT HEAD WITHOUT CONTRAST CLINICAL INFORMATION: Fall COMPARISON: None TECHNIQUE: Contiguous axial imaging was performed from the skull base to vertex without intravenous administration of contrast. This CT examination was performed using dose optimization techniques as appropriate, variously including the following: *Automated exposure control *Adjustment of mA and/or kV according to patient size (this includes techniques or standardized protocols for targeted exams where dose is matched to indication/reason for exam; i.e. extremities or head) *Use of iterative reconstruction technique DLP: 797 mGy-cm FINDINGS: There is a 4 mm focus of hyperdensity in the periventricular white matter of the left lateral ventricle, series 3 image 44/61 and coronal series 8 image 61/173. This does not have the expected density of acute hemorrhage but a subacute hemorrhage or cavernoma could give this appearance. No extra-axial fluid collection. No mass effect or midline shift. There is mild periventricular and subcortical white matter hypodensity consistent with chronic microvascular white matter ischemic changes. Caceres-white differentiation is maintained without evidence of acute large vessel territory ischemia. The ventricles and sulci are normal in size for the patient's age. Mastoid air cells and sinuses are clear. Globes and orbits are normal. No skull fracture. CT/CT head/brain wo con IMPRESSION: 4 mm focus of hyperdensity in the periventricular white matter of the left lateral ventricle. This does not have the expected density of acute hemorrhage but a subacute hemorrhage or cavernoma could give this appearance. Consider MRI for further evaluation.
[2020-10-24] MEDS: FLUoxetine HCl Oral Solution 20 MG/5 ML SOLUTION 40 MG G-TUBE (09:36)
[2020-10-24] MEDS: Morphine Sulfate 2 MG/ML CARTRIDGE IVPUSH ×3 (09:36→23:52)
[2020-10-24] MEDS: 0.9 % Sodium Chloride Flush 3 ML SYRINGE IVFLUSH ×2 (09:36→15:20)
[2020-10-24] MEDS: Famotidine 20 MG TABLET G-TUBE (09:36)
[2020-10-24] MEDS: Nystatin Cream 15 GM TUBE 1 APPL TOPICAL ×2 (09:37→21:37)
[2020-10-24] MEDS: Nystatin Powder 15 GM BOTTLE 1 APPL TOPICAL ×2 (09:37→21:37)
[2020-10-24] MEDS: Metoprolol Tartrate 25 MG TABLET G-TUBE ×3 (10:04→21:31)
--- NOTE | 2020-10-24 11:00 | MHC.CM.PN ---
KING spoke to [facility] dental coordinator, Rose on 10/23/20 around 1530 hours. She reports she does not have a bed over the weekend however she also has concerns regarding the pts readiness to be transferred. Rose reports they would like to see the pts WBC count continue to go down, ideally in the 14-15 range. She also reports concern that the pt had a low grade fever the day before and is no longer on Abx. Rose and the MD at [facility] will review the pt updates Sunday when they may have an open bed.
[2020-10-24 11:38] LABS: Hematocrit 31.8 % (42-52); Mean Corpuscular HGB Conc 31.4 g/dl (31.0-36.0); Mean Corpuscular Hemoglobin 29.2 pg (27.0-33.0); Platelet Count 747 X10*3/uL (160-400); Red Blood Count 3.42 X10*6/uL (4.60-5.80); White Blood Count 23.7 X10*3/uL (4.8-10.8)
--- NOTE | 2020-10-24 12:07 | P.PNIM_ITS ---
Subjective Subjective Date of Service: 10/24/20 Interval History: seen and examined no new issues reported appears slightly anxious ROS unable due to patient baseline Physical Exam Vital Signs: Vital Signs: Last Vital Signs Temp 99.2 F 10/23/20 20:00 Pulse 130 H 10/24/20 10:04 Resp 19 10/24/20 09:36 BP 130/89 10/24/20 10:04 Pulse Ox 96 10/24/20 09:22 Body Mass Index 14.4 Const: Other: General - no acute distress, appears comfortable HEENT - trach in place Cardiovascular - regular rate and rhythm, S1-S2 Lungs - no distress Abdomen - soft, nontender, no rebound or guarding Extremities - no edema bilaterally Neuro - awake and alert, non-verbal Objective Data Current Medications Generic Name Dose Route Start Last Admin Trade Name Freq PRN Reason Stop Dose Admin Acetaminophen 650 mg 09/30/20 20:05 10/22/20 16:01 Acetaminophen Oral Liquid 650 Mg/20.3 Ml Solution OG-TUBE 650 mg Q6H PRN Administration Pain and Fever Acetaminophen 650 mg 10/02/20 21:14 10/19/20 02:46 Acetaminophen Supp 650 Mg Supp.Rect [place] 650 mg Q6H PRN Administration Fever Bisacodyl 10 mg 09/28/20 14:02 10/02/20 10:04 Bisacodyl 10 Mg Supp.Rect VA 10 mg DAILY PRN Administration Constipation Enoxaparin Sodium 40 mg 10/12/20 14:00 10/23/20 13:53 Enoxaparin Sodium 40 Mg/0.4 Ml Syringe SUBCUT 40 mg Q24H ELIA Administration Famotidine 20 mg 10/09/20 09:00 10/24/20 09:36 Famotidine 20 Mg Tablet G-TUBE 20 mg DAILY ELIA Administration Fluoxetine HCl 40 mg 10/13/20 09:00 10/24/20 09:36 Fluoxetine Hcl Oral Solution 20 Mg/5 Ml Solution G-TUBE 40 mg DAILY ELIA Administration Lactulose 30 gm 10/08/20 16:32 Lactulose 20 Gm/30 Ml Solution G-TUBE BID PRN constipation Lorazepam 0.5 mg 10/24/20 11:15 Lorazepam 2 Mg/Ml Vial IVPUSH Q4H PRN Anxiety Metoprolol Tartrate 25 mg 10/08/20 21:00 10/24/20 10:04 Metoprolol Tartrate 25 Mg Tablet G-TUBE 25 mg BID ELIA Administration Protocol Morphine Sulfate 2 mg 10/22/20 18:03 10/24/20 09:36 Morphine Sulfate 2 Mg/Ml Cartridge IVPUSH 2 mg Q4H PRN Administration pain / respiratory distress Nystatin 1 appl 10/11/20 21:00 10/24/20 09:37 Nystatin Powder 15 Gm Bottle TOPICAL 1 appl BID ELIA Administration Protocol Nystatin 1 appl 10/19/20 21:00 10/24/20 09:37 Nystatin Cream 15 Gm Tube TOPICAL 1 appl BID ELIA Administration Protocol Ondansetron HCl 4 mg 09/28/20 15:49 09/28/20 15:58 Ondansetron Hcl 4 Mg/2 Ml Vial IVPUSH 4 mg Q6H PRN Administration Nausea Sodium Chloride 3 ml 09/23/20 16:00 10/24/20 09:36 0.9 % Sodium Chloride Flush 3 Ml Syringe IVFLUSH 3 ml QSHIFT ELIA Administration Valproic Acid 500 mg 10/12/20 21:00 10/23/20 20:55 Valproic Acid (As Sodium Salt) 250 Mg/5 Ml Solution G-TUBE 500 mg BEDTIME ELIA Administration Valproic Acid 250 mg 10/13/20 09:00 10/24/20 09:36 Valproic Acid (As Sodium Salt) 250 Mg/5 Ml Solution PO 250 mg DAILY ELIA Administration Labs CBC & Chem 7: 10/24/20 11:25 10/20/20 07:42 Microbiology Microbiology Results: Microbiology 10/19/20 09:45 Blood - Venous Blood Culture - Final No growth after 5 days. 10/19/20 09:45 Blood - Venous Blood Culture - Final No growth after 5 days. 10/15/20 01:05 Blood - Venous Blood Culture - Final No growth after 5 days. 10/15/20 01:01 Blood - Venous Blood Culture - Final No growth after 5 days. 10/14/20 18:21 Urine Go Port Urine Culture - Final No growth. 10/04/20 21:00 Blood - Central Line Blood Culture - Final No growth after 5 days. 10/04/20 20:53 Blood - Central Line Blood Culture - Final No growth after 5 days. 10/04/20 06:56 Sputum - Suctioned Gram Stain - Final 10/04/20 06:56 Sputum - Suctioned Sputum Culture - Final Enterobacter cloacae complex 10/04/20 06:56 Urine Go Port Urine Culture - Final No growth. 09/26/20 15:00 Sputum - Suctioned Gram Stain - Final 09/26/20 15:00 Sputum - Suctioned Sputum Culture - Final Enterobacter cloacae complex 09/22/20 21:39 Blood - Venous Blood Culture - Final No growth after 5 days. 09/22/20 21:38 Blood - Venous Blood Culture - Final No growth after 5 days. 09/22/20 22:07 Urine clean catch - Clean Catch Midstream Urine Culture - Final Escherichia coli Assessment and Plan (1) Acute respiratory failure: Status: Acute Assessment and Plan: This is a 60 yo gentleman with underlying history of developmental delay, cerebral palso, spastic quadriplegia, seizure disorder, dysphasia, wheelchair-ricardo und, [place] [facility] resident who presented to the ED on 09/23/2020 with fever and vomiting. His course has been complicated by multiple episodes of respiratory failure and ultimately required PEG/Trach placement. He was due to transfer on 10/14/2020 but spiked a fever and discharge was cancelled. 1. Acute resp. failure due to recurrent aspiration now with trach and peg continue current care 2. Recurrent aspiration pneumonia resolved, CT chest done -- no pneumonia antibiotics discontinued 10/22/2020, completed multiple course Leukocytosis likely due to leukemoid 3. Seizure disorder depakote 500mg/250mg 4. E. Coli UTI completed treatment go removed 5. Moderate to Severe protein calorie malnutrition tube feeds 6. Mood continue fluoxetine prn ativan 7. Tachycardia questions if related to anxiety increase metoprolol re-add ativan, may need high dose DNR/DNI DVT pptx, lovenox dispo: LTAC, new referrals being sent out as current LTAC ([facility]) has refused
[2020-10-24 12:09] LABS: Anion Gap 15 (12-20); Blood Urea Nitrogen 26 mg/dL (9-16); Calcium 9.2 mg/dL (8.4-10.2); Carbon Dioxide 25 mmol/L (22-29); Chloride 104 mmol/L (96-108); Creatinine Clr Calc Pharmacy 72.3; Estimated Glomerular Filt Rate > 60; Glucose Random 115 mg/dL (60-115); Potassium 4.5 mmol/l (3.3-5.1); Sodium 139 mmol/L (135-145)
[2020-10-24] MEDS: LORazepam 2 MG/ML VIAL 0.5 MG IVPUSH (12:45)
[2020-10-24] MEDS: Enoxaparin Sodium 40 MG/0.4 ML SYRINGE SUBCUT (15:20)
[2020-10-24] MEDS: Acetaminophen Supp 650 MG SUPP.RECT PR (21:34)
[2020-10-24] MEDS: traZODone HCL 25 MG HALFTAB PO (21:53)
[2020-10-25] VITALS (10 sets, daily range): BP systolic 105–137; BP diastolic 72–84; PULSE 88–121; RESP 18–24; TEMP 35.8–38.2; O2SAT 94–100; BMI 14.6
--- NOTE | 2020-10-25 | CT_ITS ---
EXAMINATION: CT HEAD WITHOUT CONTRAST CLINICAL INFORMATION: Hypodense foci in the left periorbital white matter. Follow-up. COMPARISON: CT brain brain 10/24/2020 at 8:30 PM. . TECHNIQUE: Contiguous axial imaging was performed from the skull base to vertex without intravenous administration of contrast. This CT examination was performed using dose optimization techniques as appropriate, variously including the following: *Automated exposure control *Adjustment of mA and/or kV according to patient size (this includes techniques or standardized protocols for targeted exams where dose is matched to indication/reason for exam; i.e. extremities or head) *Use of iterative reconstruction technique DLP: 1020 mGy-cm FINDINGS: Previously seen specific hyperdensity in the periventricular white matter of left lateral ventricle is not readily visualized on the present exam. There is however small areas of periventricular hypodensity in both hemispheres, nonspecific. Subtle hypodensity in the left frontal lobe periventricular region likely a small lacunar infarct. No acute intracranial bleed seen at this time. The lateral ventricles are enlarged and so other cortical sulci. Diffuse periventricular hypodensity seen in both cerebellar hemispheres likely chronic small vessel ischemic changes. Bone windows reveal no calvarial abnormality. The paranasal sinuses and mastoid air cells are well-aerated. CT/CT head/brain wo con IMPRESSION: No specimen hypodensity seen in the periventricular white matter of left lateral ventricle at this time. There is nonspecific punctate areas of hyperdensity in periventricular region of both lateral ventricles, a nonspecific finding. There is no definite area of acute bleed or or infarct at this time.
--- NOTE | 2020-10-25 03:36 | MHC.PIE ---
Addendum entered by Pamela Garcia RN 10/25/20 06:12: e - 1:1 sitter maintained with no change in mental status - bruise on r forearm noted. medicated for comfort with Morphine 2mg iv before trach care. continue to monitor. Original Note: p - @ 192, directly across from nurses station, stat from telesitter heard. previous shift RN & this RN immediate to Room and pt found on floor laying on right side. no obvious change in contracted arms & legs. no bleeding noted. immediate call for help & 2 Rn's & vice president diversity responded immediately thereafter to room. trach & peg remained in tact. 2 Rails up on bed. Pt moving all extremites, eyes focus to verbal stim, no moaning, no crying, but restless. explained to pt actions. i - 2 man fire-chair lift back to bed. Pt vitals were stable at 98.4 [id number] 140/78 98% on 28% trach mask. Pt assessed for injuries, pnk @ r posterior shoulder, r shoulder, right cheek, right forehead, r forearm and r hip. call to [facility] Reza Ngo RN & hospitalist Dr. Germain & orders received for stat CT scan. Pt gurgling & suctioned per protocol for small amt thin pink tinged sputum. tube feeding held for transfer & peg clamped. 28% fio2 trach mask changed to ventimask 35% via portable oxygen tank. to CT scan @ 2009 with this RN & vice president diversity without incident. CT scan results reviewed by hospitalist. back to room by 2039, pt settled in bed. continued restlessness, and text to MD medicated with tylenol 650mg pr @ 2133 & traazadone 25 mg via peg, with decreased restlessness, call to [facility] requesting 1:1 sitter, to be available @ 2299.
[2020-10-25 05:10] LABS: Hematocrit 30.8 % (42-52); Hemoglobin 9.6 g/dl (14.0-18.0); Mean Corpuscular HGB Conc 31.2 g/dl (31.0-36.0); Mean Corpuscular Hemoglobin 29.2 pg (27.0-33.0); Mean Corpuscular Volume 93.6 fL (80-98); Mean Platelet Volume 11.5 fL (9.4-12.4); Platelet Count 591 X10*3/uL (160-400); Red Blood Count 3.29 X10*6/uL (4.60-5.80)
[2020-10-25 05:35] LABS: Anion Gap 15 (12-20); Blood Urea Nitrogen 28 mg/dL (9-16); Calcium 8.8 mg/dL (8.4-10.2); Carbon Dioxide 23 mmol/L (22-29); Chloride 106 mmol/L (96-108); Creatinine Clr Calc Pharmacy 77.4; Estimated Glomerular Filt Rate > 60; Glucose Random 115 mg/dL (60-115); Potassium 4.5 mmol/l (3.3-5.1); Sodium 139 mmol/L (135-145)
[2020-10-25] MEDS: Morphine Sulfate 2 MG/ML CARTRIDGE IVPUSH (05:35)
[2020-10-25] MEDS: Metoprolol Tartrate 25 MG TABLET G-TUBE ×2 (08:00→19:48)
[2020-10-25] MEDS: Famotidine 20 MG TABLET G-TUBE (08:00)
[2020-10-25] MEDS: FLUoxetine HCl Oral Solution 20 MG/5 ML SOLUTION 40 MG G-TUBE (08:01)
[2020-10-25] MEDS: 0.9 % Sodium Chloride Flush 3 ML SYRINGE IVFLUSH ×3 (08:02→17:28)
[2020-10-25] MEDS: Nystatin Powder 15 GM BOTTLE 1 APPL TOPICAL ×2 (10:29→20:48)
--- NOTE | 2020-10-25 12:33 | MHC.CLN ---
F/U PT RECEIVING OSMOLITE AT MAX GOAL RATE 40CC/HR WITH 240CC FREE WATER FLUSHES Q SHIFT TO PROVIDE 1440KCALS (30KCALS/KG), 60G PROTEIN (1.3G/KG), 1451CC TOTAL WATER FROM FORMULA AND FLUSHES (32CC/KG) MONITOR LYTES AND ADJUST FREE WATER NEEDED NOTED FRAGILE SKIN FOLLOWING
--- NOTE | 2020-10-25 13:10 | P.DS_ITS ---
DS: Providers Provider Date of admission: 09/23/20 09:10 Primary care physician: Bonifacio Fletcher MD Consults: 09/23/20 10:23 Consult to Infectious Diseases Routine Consulting Provider: Infectious Disease Reason for consultation: Sepsis Has provider been notified: No 10/07/20 14:38 Consult to General Surgery Routine Consulting Provider: Kevin Hester Reason for consultation: Gastrostomy Has provider been notified: Yes 10/16/20 08:43 Consult to Infectious Diseases Routine Consulting Provider: Rasheeda Brice Reason for consultation: Fever of unknown source Has provider been notified: No DS: Diagnosis Discharge Diagnosis (1) Acute respiratory failure: Status: Acute DS: Medications Discharge Medications Home Medications: Home Medications Medication Instructions Recorded Confirmed alendronate 70 mg PO Q7D 09/22/20 09/22/20 Previous Rx's Medication Instructions Recorded acetaminophen 650 mg OG-TUBE Q6H PRN #240 ml 10/14/20 acetaminophen 650 mg LA Q6H PRN #30 ea 10/14/20 bisacodyl [Gentle Laxative 10 mg LA DAILY PRN #3 ea 10/14/20 (bisacodyl)] chlorhexidine gluconate 15 ml BUCCAL TID #240 ml 10/14/20 famotidine 20 mg G-TUBE DAILY #240 tab 10/14/20 fluoxetine 40 mg G-TUBE DAILY #240 ml 10/14/20 lactulose 30 g G-TUBE BID PRN #240 ml 10/14/20 metoprolol tartrate 25 mg G-TUBE BID #240 tab 10/14/20 nystatin 1 appl TOPICAL BID #1 g 10/14/20 valproic acid (as sodium salt) 250 mg PO DAILY #240 ml 10/14/20 valproic acid (as sodium salt) 500 mg G-TUBE BEDTIME #240 ml 10/14/20 morphine 2 mg IVPUSH Q4H PRN #1 ml 10/25/20 DS: Summary Hospital Course Hospital Course: History of presenting illness 60-year-old with 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 and wheelchair-bound noted to be short of breath presented with acute hypoxemic respiratory failure intubated with significant pattern of extensive bilateral ground-glass infiltrates and consolidation with elevated white count and left shift negative for COVID but the rest of the respiratory panel is pending he has become increasingly hypercapnic with end-tidal CO2 is dropping to 17 in the face of a pCO2 of over 40 no change in in pH no change in bicarb and proof of resolved lactate and what looks like increasing extent of infiltrates bilaterally and we now have CVP measurements which have been hovering at around 10 the implication here is that this is a response to diminishing alveolar ventilation, in other words, increasing space potentially consistent with pulmonary edema versus progressive ARDS bedside echo shows normal LV and RV size and function with no primary valve or pericardial disease right internal jugular central venous pressure line with tip in the right atrium was placed because of lack of venous access and the patient is being treated with Zosyn and vancomycin. Past medical history Anxiety Cerebral palsy GERD (gastroesophageal reflux disease) Osteoporosis Seizure Spastic quadriplegia Hospital course 60-year-old gentleman with underlying history of developmental delay, cerebral palsy, spastic quadriplegia, seizure disorder, dysphagia, wheelchair-bound, nursing home resident who presented to the ED 09/23/2020 with fever, vomiting. He was initially admitted to the hospital service for aspiration PNA. Covid was negative. While still in ED, he decompensated and was intubated and admitted to the ICU. He was treated with antibiotics including Zosyn, Vancomycin and Doxycycline. He was extubated on 09/28 and within 6 hours aspirated and was reintubated and treated with Unasyn for aspiration yet again. He subsequently failed extubation and underwent Tracheostomy by Dr. Andrade on 10/06 and a PEG by Dr. Hester on 10/08. He was taken off vent on 10/09 and then transfer to hospitalist service on 10/09. 1.Acute respiratory failure due to recurrent aspiration--s/p intubation and now with tracheostomy--stable, is being discharged to [facility] for tracheostomy and PEG care.. No respiratory issues at moment 2. Recurrent aspiration pneumonia--he has been on multiple antibiotics including combination of Ceftriaxone, Doxycycline, Zosyn and Unasyn. Most recent WBC 11 on 10/09. -sputum culture grew Enterobacter Cloacea complex..He was restarted back on Ceftriaxone on 10/07 and completed 7 day course today. 3. Seizure d/o continue Valproic acid continue home dose of 500 mg at bedtime and 250 at a.m. . 4. E.coli UTI--from 09/22 sample, status post antibiotic treatments. 5. moderate to severe protein calorie malnutrition--continue tube feeding , further adjustment as per repeat albumin levels. 6. code status discussed with patient's sister who is healthcare proxy Sharri Thurman and discuss quality of life with her she agreed for DNR DNI and does not wish him to suffer anymore. 7. mood disorder patient is prescribed 2 SSRIs fluoxetine and fluvoxamine, he has not been on them since been in ICU, restart on Fluoxetine only--No rational for both. Time Spent with Patient Time attestation: Total time spent providing and/or coordinating discharge services: Physical Exam Vital Signs: Vital Signs: Last Vital Signs Temp 99.3 F 10/25/20 11:37 Pulse 99 10/25/20 11:37 Resp 20 10/25/20 11:37 BP 137/82 10/25/20 11:37 Pulse Ox 97 10/25/20 11:37 Body Mass Index 14.6 DS: Data Data Completed and Pending Labs on day of discharge: Laboratory Last Values WBC 15.0 X10*3/uL (4.8-10.8) H 10/25/20 04:37 RBC 3.29 X10*6/uL (4.60-5.80) L 10/25/20 04:37 Hgb 9.6 g/dl (14.0-18.0) L 10/25/20 04:37 Hct 30.8 % (42-52) L 10/25/20 04:37 MCV 93.6 fL (80-98) 10/25/20 04:37 MCH 29.2 pg (27.0-33.0) 10/25/20 04:37 MCHC 31.2 g/dl (31.0-36.0) 10/25/20 04:37 RDW 13.0 % (11.0-16.0) 10/25/20 04:37 Plt Count 591 X10*3/uL (160-400) H 10/25/20 04:37 MPV 11.5 fL (9.4-12.4) 10/25/20 04:37 Immature Gran % (Auto) 1.6 % (0.0-0.4) H 10/18/20 05:49 Neut % (Auto) 75.2 % (45-73) H 10/18/20 05:49 Lymph % (Auto) 8.7 % (20-40) L 10/18/20 05:49 Grady % (Auto) 11.2 % (2-11) H 10/18/20 05:49 Eos % (Auto) 3.0 % (0-4) 10/18/20 05:49 Baso % (Auto) 0.3 % (0-2) 10/18/20 05:49 Lymph # (Auto) 1.5 X10*3/uL (1.2-4.9) 10/18/20 05:49 Grady # (Auto) 2.0 X10*3/uL (0.1-1.2) H 10/18/20 05:49 Eos # (Auto) 0.5 X10*3/uL (0.0-0.4) H 10/18/20 05:49 Baso # (Auto) 0.1 X10*3/uL (0.0-0.2) 10/18/20 05:49 Abs Immat Gran (auto) 0.28 X10*3/uL (0.00-0.03) H 10/18/20 05:49 Absolute Neuts (auto) 13.1 X10*3/uL (2.0-8.3) H 10/18/20 05:49 Absolute Nucleated RBC 0.000 X10*3/uL (0.0-0.012) 10/25/20 04:37 Nucleated RBC % (auto) 0.0 /100WBC (0.0-0.2) 10/25/20 04:37 Neutrophils % (Manual) 69 % (45-73) 09/23/20 10:41 Band Neutrophils % 19 % (3-5) H 09/23/20 10:41 Lymphocytes % (Manual) 9 % (20-40) L 09/23/20 10:41 Monocytes % (Manual) 2 % (2-11) 09/23/20 10:41 Metamyelocytes % 1 % 09/23/20 10:41 Abs Neuts (Manual) 14.9 X10*3/uL (2.2-7.9) H 09/23/20 10:41 Lymphocytes # (Manual) 1.5 X10*3/uL (0.6-4.8) 09/23/20 10:41 Monocytes # (Manual) 0.3 X10*3/uL (0.0-1.2) 09/23/20 10:41 Metamyelocytes # 0.2 X10*3/uL 09/23/20 10:41 Platelet Estimate SLIGHTLY DECREASED (NORMAL) 09/23/20 10:41 Plt Morphology Comment NORMAL 09/23/20 10:41 RBC Morphology NOTED 09/23/20 10:41 Hypochromasia 1+ 09/23/20 10:41 Smear Tech's Comments VERIFIED 10/18/20 05:49 PT 13.7 SEC (10.8-13.0) H 10/05/20 16:40 INR 1.2 (0.9-1.1) H 10/05/20 16:40 D-Dimer 358 NG/ML 09/25/20 05:20 ABG pH 7.44 (7.35-7.45) 09/26/20 10:15 ABG pCO2 29 mmhg (32-45) L 09/26/20 10:15 ABG pO2 > 450 mmhg (83-108) H 09/26/20 10:15 ABG HCO3 19 mmol/l (22-26) L 09/26/20 10:15 ABG O2 Saturation 98.8 % 09/26/20 10:15 ABG Base Excess -4.3 09/26/20 10:15 VBG pH 7.48 (7.32-7.43) H 10/09/20 05:45 VBG pCO2 38 mmhg 10/09/20 05:45 VBG pO2 45 mmhg 10/09/20 05:45 VBG HCO3 28 mmol/L 10/09/20 05:45 VBG O2 Saturation 83.6 % 10/09/20 05:45 VBG Base Excess 4.0 mmol/L 10/09/20 05:45 Oxygen Given 100% 09/26/20 10:15 Sodium 139 mmol/L (135-145) 10/25/20 04:37 Potassium 4.5 mmol/l (3.3-5.1) 10/25/20 04:37 Chloride 106 mmol/L (96-108) 10/25/20 04:37 Carbon Dioxide 23 mmol/L (22-29) 10/25/20 04:37 Anion Gap 15 (12-20) 10/25/20 04:37 BUN 28 mg/dL (9-16) H 10/25/20 04:37 Creatinine 0.56 mg/dL (0.5-1.4) 10/25/20 04:37 Estim Creat Clear Calc 77.4 10/25/20 04:37 Estimated GFR > 60 10/25/20 04:37 POC Glucose 110 mg/dL (60-115) 10/06/20 17:58 Random Glucose 115 mg/dL (60-115) 10/25/20 04:37 Fasting Glucose 109 mg/dL (60-99) H 10/06/20 05:59 Lactic Acid 1.3 mmol/L (0.5-2.0) 10/15/20 01:01 Lactic Acid Fup @ 2Hr 1.1 mmol/L (0.5-2.0) 09/23/20 10:41 Calcium 8.8 mg/dL (8.4-10.2) 10/25/20 04:37 Phosphorus 2.7 mg/dL (2.7-4.5) 10/05/20 05:42 Magnesium 1.8 mg/dL (1.6-2.6) 10/05/20 05:42 Ferritin 608 ng/mL (20-250) H 09/25/20 05:20 Direct Bilirubin 0.2 mg/dL (0.0-0.5) 09/22/20 21:29 Total Bilirubin 0.7 mg/dL (0.0-1.0) 10/09/20 05:45 AST 21 U/L (5-37) 10/09/20 05:45 ALT 24 U/L (0-40) 10/09/20 05:45 Alkaline Phosphatase 67 U/L (39-117) 10/09/20 05:45 Lactate Dehydrogenase 361 U/L (118-273) H 09/25/20 05:20 Total Creatine Kinase 831 U/L (38-174) H D 09/25/20 05:20 C-Reactive Protein 28.94 mg/dL (< or = 0.50) H 09/24/20 05:20 Total Protein 5.5 g/dL (6.5-8.0) L 10/09/20 05:45 Albumin 3.2 g/dL (3.5-5.0) L 10/09/20 05:45 Lipase 39 U/L (8-78) 09/22/20 21:29 Procalcitonin 1.88 ng/mL 09/25/20 05:20 Urine Color YELLOW 10/16/20 23:17 Urine Appearance CLEAR 10/16/20 23:17 Urine pH 8.0 (5.0-8.0) 10/16/20 23:17 Ur Specific [place] 1.025 (1.005-1.025) 10/16/20 23:17 Urine Protein 1+ MG/DL (NEG-TRACE) H 10/16/20 23:17 Urine Glucose (UA) NEG MG/DL (NEG) 10/16/20 23:17 Urine Ketones NEG MG/DL (NEG) 10/16/20 23:17 Urine Blood 2+ (NEG) H 10/16/20 23:17 Urine Nitrite NEG (NEG) 10/16/20 23:17 Ur Leukocyte Esterase NEG (NEG) 10/16/20 23:17 Urine RBC 30-49 /HPF (0) H 10/16/20 23:17 Urine WBC 1-4 /HPF (0-4) 10/16/20 23:17 Ur Squamous Epith Cells 1+ /LPF 10/16/20 23:17 Urine Bacteria 1+ /LPF 10/16/20 23:17 Urine Mucus 1+ /LPF 10/16/20 23:17 Nasal Screen MRSA (PCR) NEGATIVE (Negative) 09/24/20 15:05 Nasal S. aureus Screen NEGATIVE (Negative) 09/24/20 15:05 Nasal MRSA/S.aureus Interp SEE NOTE 09/24/20 15:05 Vancomycin Trough 7.3 mcg/mL (10.0-20.0) L 10/16/20 14:18 Random Vancomycin 16.7 mcg/mL (15-20) 10/15/20 19:24 Respiratory Panel Daniel See Note 09/23/20 10:31 Adenovirus (Rapid PCR) Not Detected (Not Detect.) 09/23/20 10:31 B.pert (TEM-PCR) Not Detected (Not Detect.) 09/23/20 10:31 B.parapertussis DNA PCR Not Detected (Not Detect.) 09/23/20 10:31 C. pneumoniae DNA (PCR) Not Detected (Not Detect.) 09/23/20 10:31 Coronavirus (PCR) NEGATIVE (Negative) 10/04/20 14:13 Coronavirus OC43 (PCR) Not Detected (Not Detect.) 09/23/20 10:31 Coronavirus HKU1 (PCR) Not Detected (Not Detect.) 09/23/20 10:31 Coronavirus 229E (PCR) Not Detected (Not Detect.) 09/23/20 10:31 Coronavirus NL63 (PCR) Not Detected (Not Detect.) 09/23/20 10:31 COVID-19 (KATE) Negative (Negative) 10/19/20 14:05 COVID-19 Clin Com See Note 10/19/20 14:05 Human Metapneumovir PCR Not Detected (Not Detect.) 09/23/20 10:31 Influenza A (RT-PCR) Not Detected (Not Detect.) 09/23/20 10:31 Influenza Type A (PCR) NEGATIVE (Negative) 10/04/20 14:13 Influenza B (RT-PCR) Not Detected (Not Detect.) 09/23/20 10:31 Influenza Type B (PCR) NEGATIVE (Negative) 10/04/20 14:13 Ur L.pneumophila Ag Not Detected (Not Detected) 09/23/20 10:31 M. pneumoniae (PCR) Not Detected (Not Detect.) 09/23/20 10:31 Parainfluenza 1 (PCR) Not Detected (Not Detect.) 09/23/20 10:31 Parainfluenza 2 (PCR) Not Detected (Not Detect.) 09/23/20 10:31 Parainfluenza 3 (PCR) Not Detected (Not Detect.) 09/23/20 10:31 Parainfluenza 4 (PCR) Not Detected (Not Detect.) 09/23/20 10:31 RSV (PCR) Not Detected (Not Detect.) 09/23/20 10:31 RSV RNA Qual (PCR) NEGATIVE (Negative) 10/04/20 14:13 Entero/Rhino (PCR) Not Detected (Not Detect.) 09/23/20 10:31 SARS-CoV-2 RNA (RT-PCR) Not Detected (Not Detect.) 09/23/20 10:31 SARS-CoV-2 IgG Ab Negative (Negative) 10/04/20 13:12 Ur Strep pneumoniae Ag Not Detected (Not Detected) 09/23/20 10:31 Blood Type O Positive 10/05/20 16:40 Antibody Screen NEGATIVE 10/05/20 16:40 Discharge Plan Discharge Patient Disposition: [facility] Referrals: [facility] [Outside] Bonifacio Fletcher MD [Primary Care Provider] - Discharge Medications: New acetaminophen 650 mg Suppository 650 mg LA Q6H PRN (Reason: Fever) Qty: 30 RF: 0 acetaminophen 650 mg/20.3 mL Solution 650 mg OG-TUBE Q6H PRN (Reason: Pain And Fever) Qty: 240 RF: 0 fluoxetine 20 mg/5 mL (4 mg/mL) Solution 40 mg G-tube DAILY Qty: 240 RF: 0 lactulose 20 gram/30 mL Solution 30 g G-tube BID PRN (Reason: constipation) Qty: 240 RF: 0 valproic acid (as sodium salt) 250 mg/5 mL (5 mL) Solution 500 mg G-tube BEDTIME Qty: 240 RF: 0 valproic acid (as sodium salt) 250 mg/5 mL (5 mL) Solution 250 mg PO DAILY Qty: 240 RF: 0 bisacodyl [Gentle Laxative (bisacodyl)] 10 mg Suppository 10 mg LA DAILY PRN (Reason: Constipation) Qty: 3 RF: 0 chlorhexidine gluconate 0.12 % Mouthwash 15 ml buccal TID Qty: 240 RF: 0 famotidine 20 mg Tablet 20 mg G-tube DAILY Qty: 240 RF: 0 nystatin 100,000 unit/gram Powder 1 appl topical BID Qty: 1 RF: 0 metoprolol tartrate 25 mg Tablet 25 mg G-tube BID Qty: 240 RF: 0 morphine 2 mg/mL Syringe 2 mg IVPUSH Q4H PRN (Reason: pain / respiratory distress) Qty: 1 RF: 0 Continued alendronate 70 mg/75 mL solution 70 mg PO Q7D RF: 0 Discontinued divalproex 500 mg tablet extended release 24 hr 500 mg PO BEDTIME RF: 0 omeprazole 20 mg capsule,delayed release(DR/EC) 20 mg PO BID@0630,1630 RF: 0 fluvoxamine 50 mg tablet 1 tab PO BEDTIME RF: 0 divalproex 250 mg tablet extended release 24 hr 250 mg PO DAILY RF: 0 fluoxetine 20 mg capsule 60 mg PO DAILY@0630 RF: 0 Discharge Orders: Discharge Order (Routine); Ordered 10/14/20 Ordered By: Juan C Esqueda Diet: other Activity on Discharge: As tolerated Visit Report Forms: Patient Portal Discharge page Care Plan Goals: Continue trach NG tube care, suction trach as needed Health Concerns: Continue current medication and reassess for escalation of antidepressant medication Plan of Treatment: Outpatient follow-up with primary care physician
[2020-10-25 13:12] LABS: COVID-19 Test Negative (Negative); IDNOW Serial# 9DD0AD1C
--- NOTE | 2020-10-25 13:34 | MHC.CM.PN ---
DC scheduled for today has been canceled.
[2020-10-25] MEDS: LORazepam 2 MG/ML VIAL 0.5 MG IVPUSH (14:37)
[2020-10-25] MEDS: Nystatin Cream 15 GM TUBE 1 APPL TOPICAL ×2 (16:06→20:48)
--- NOTE | 2020-10-25 17:42 | P.PNIM_ITS ---
Subjective Subjective Date of Service: 10/25/20 Interval History: seen and examined overnight events reviewed d/w Sharri (HCP/Sister)x 2 -- about events of last night. Discussed the need for possible MRI vs Repeat CT scan. She would like to avoid sedating him for MRI if at all possible. ROS unable due to patient baseline Physical Exam 2 Vital Signs: Vital Signs: Last Vital Signs Temp 100.7 F H 10/25/20 15:26 Pulse 120 H 10/25/20 15:11 Resp 18 10/25/20 15:11 BP 137/81 10/25/20 15:11 Pulse Ox 99 10/25/20 15:11 Body Mass Index 14.6 Const: Other: General - no acute distress, appears comfortable HEENT - trach in place Cardiovascular - regular rate and rhythm, S1-S2 Lungs - no distress Abdomen - soft, nontender, no rebound or guarding Extremities - no edema bilaterally Neuro - awake and alert, non-verbal; no new neurological findings Objective Data Current Medications Generic Name Dose Route Start Last Admin Trade Name Freq PRN Reason Stop Dose Admin Acetaminophen 650 mg 09/30/20 20:05 10/22/20 16:01 Acetaminophen Oral Liquid 650 Mg/20.3 Ml Solution OG-TUBE 650 mg Q6H PRN Administration Pain and Fever Acetaminophen 650 mg 10/02/20 21:14 10/24/20 21:34 Acetaminophen Supp 650 Mg Supp.Rect WY 650 mg Q6H PRN Administration Fever Bisacodyl 10 mg 09/28/20 14:02 10/02/20 10:04 Bisacodyl 10 Mg Supp.Rect [place] 10 mg DAILY PRN Administration Constipation Famotidine 20 mg 10/09/20 09:00 10/25/20 08:00 Famotidine 20 Mg Tablet G-TUBE 20 mg DAILY ELIA Administration Fluoxetine HCl 40 mg 10/13/20 09:00 10/25/20 08:01 Fluoxetine Hcl Oral Solution 20 Mg/5 Ml Solution G-TUBE 40 mg DAILY ELIA Administration Lactulose 30 gm 10/08/20 16:32 Lactulose 20 Gm/30 Ml Solution G-TUBE BID PRN constipation Lorazepam 0.5 mg 10/24/20 11:15 10/25/20 14:37 Lorazepam 2 Mg/Ml Vial IVPUSH 0.5 mg Q4H PRN Administration Anxiety Metoprolol Tartrate 25 mg 10/08/20 21:00 10/25/20 08:00 Metoprolol Tartrate 25 Mg Tablet G-TUBE 25 mg BID ELIA Administration Protocol Morphine Sulfate 2 mg 10/22/20 18:03 10/25/20 05:35 Morphine Sulfate 2 Mg/Ml Cartridge IVPUSH 2 mg Q4H PRN Administration pain / respiratory distress Nystatin 1 appl 10/11/20 21:00 10/25/20 10:29 Nystatin Powder 15 Gm Bottle TOPICAL 1 appl BID ELIA Administration Protocol Nystatin 1 appl 10/19/20 21:00 10/25/20 16:06 Nystatin Cream 15 Gm Tube TOPICAL 1 appl BID ELIA Administration Protocol Ondansetron HCl 4 mg 09/28/20 15:49 09/28/20 15:58 Ondansetron Hcl 4 Mg/2 Ml Vial IVPUSH 4 mg Q6H PRN Administration Nausea Sodium Chloride 3 ml 09/23/20 16:00 10/25/20 17:28 0.9 % Sodium Chloride Flush 3 Ml Syringe IVFLUSH 3 ml QSHIFT ELIA Administration Valproic Acid 500 mg 10/12/20 21:00 10/24/20 21:32 Valproic Acid (As Sodium Salt) 250 Mg/5 Ml Solution G-TUBE 500 mg BEDTIME ELIA Administration Valproic Acid 250 mg 10/13/20 09:00 10/25/20 08:01 Valproic Acid (As Sodium Salt) 250 Mg/5 Ml Solution PO 250 mg DAILY ELIA Administration Labs CBC & Chem 7: 10/25/20 04:37 10/25/20 04:37 Microbiology Microbiology Results: Microbiology 10/19/20 09:45 Blood - Venous Blood Culture - Final No growth after 5 days. 10/19/20 09:45 Blood - Venous Blood Culture - Final No growth after 5 days. 10/15/20 01:05 Blood - Venous Blood Culture - Final No growth after 5 days. 10/15/20 01:01 Blood - Venous Blood Culture - Final No growth after 5 days. 10/14/20 18:21 Urine Go Port Urine Culture - Final No growth. 10/04/20 21:00 Blood - Central Line Blood Culture - Final No growth after 5 days. 10/04/20 20:53 Blood - Central Line Blood Culture - Final No growth after 5 days. 10/04/20 06:56 Sputum - Suctioned Gram Stain - Final 10/04/20 06:56 Sputum - Suctioned Sputum Culture - Final Enterobacter cloacae complex 10/04/20 06:56 Urine Go Port Urine Culture - Final No growth. 09/26/20 15:00 Sputum - Suctioned Gram Stain - Final 09/26/20 15:00 Sputum - Suctioned Sputum Culture - Final Enterobacter cloacae complex 09/22/20 21:39 Blood - Venous Blood Culture - Final No growth after 5 days. 09/22/20 21:38 Blood - Venous Blood Culture - Final No growth after 5 days. 09/22/20 22:07 Urine clean catch - Clean Catch Midstream Urine Culture - Final Escherichia coli Assessment and Plan (1) Acute respiratory failure: Status: Acute Assessment and Plan: This is a 60 yo gentleman with underlying history of developmental delay, c erebral palso, spastic quadriplegia, seizure disorder, dysphasia, wheelchair- bound, care home resident who presented to the ED on 09/23/2020 with fever and vomiting. His course has been complicated by multiple episodes of respiratory failure and ultimately required PEG/Trach placement. He was due to transfer on 10/14/2020 but spiked a fever and discharge was cancelled. 1. Acute resp. failure due to recurrent aspiration now with trach and peg continue current care 2. Recurrent aspiration pneumonia resolved, CT chest done -- no pneumonia antibiotics discontinued 10/22/2020, completed multiple course Leukocytosis likely due to leukemoid 3. Seizure disorder depakote 500mg/250mg 4. E. Coli UTI completed treatment go removed 5. Moderate to Severe protein calorie malnutrition tube feeds 6. Mood continue fluoxetine prn ativan 7. Tachycardia multifactorial, at least partially with anxiety improved with ativan. will add scheduled ativan in addition to PRN 8. Abnromal CT head reviewed CT from 10/24/2020. Reviewed recs for MRI. Given patients mentation / baseline -- he is unlikely to tolerate MRI. This was discussed with the sister, Sharri [facility] @ [phone]. Discussed with her in detail how to proceed -- repeat CT vs needed sedation for MRI. She tells me that she would not want him to have brain surgery even if he were to have an acute intracranial bleed and given his DNR/DNI status she opts to avoid sedation to check MRI. Repeat CT head done after discussion with radiology (appears that previous findings may be related to positioning). Repeat CT brain does not show any acute bleed / ischemia. DNR/DNI DVT pptx, lovenox dispo: monitor for 24-48 hours and then to SNF if stable
[2020-10-25] MEDS: LORazepam 0.5 MG TABLET G-TUBE (19:48)
[2020-10-25] MEDS: Enoxaparin Sodium 40 MG/0.4 ML SYRINGE SUBCUT (19:48)
[2020-10-26] VITALS (7 sets, daily range): BP systolic 123–176; BP diastolic 65–81; PULSE 105–127; RESP 18–30; TEMP 36.2–37; O2SAT 94–100; BMI 14.1
[2020-10-26] MEDS: 0.9 % Sodium Chloride Flush 3 ML SYRINGE IVFLUSH ×3 (00:39→17:52)
[2020-10-26] MEDS: LORazepam 0.5 MG TABLET G-TUBE ×3 (00:39→17:52)
[2020-10-26 07:14] LABS: Hematocrit 31.7 % (42-52); Hemoglobin 9.9 g/dl (14.0-18.0); Mean Corpuscular HGB Conc 31.2 g/dl (31.0-36.0); Mean Corpuscular Hemoglobin 29.1 pg (27.0-33.0); Mean Corpuscular Volume 93.2 fL (80-98); Mean Platelet Volume 11.4 fL (9.4-12.4); Platelet Count 547 X10*3/uL (160-400); Red Cell Distribution Width 12.9 % (11.0-16.0); White Blood Count 14.1 X10*3/uL (4.8-10.8)
[2020-10-26 08:00] LABS: Anion Gap 13 (12-20); Blood Urea Nitrogen 20 mg/dL (9-16); Calcium 8.8 mg/dL (8.4-10.2); Carbon Dioxide 29 mmol/L (22-29); Chloride 102 mmol/L (96-108); Estimated Glomerular Filt Rate > 60; Glucose Random 111 mg/dL (60-115); Potassium 4.7 mmol/l (3.3-5.1); Sodium 139 mmol/L (135-145)
[2020-10-26] MEDS: FLUoxetine HCl Oral Solution 20 MG/5 ML SOLUTION 40 MG G-TUBE (09:22)
[2020-10-26] MEDS: Metoprolol Tartrate 25 MG TABLET G-TUBE ×2 (09:23→22:47)
[2020-10-26] MEDS: Famotidine 20 MG TABLET G-TUBE (09:23)
[2020-10-26] MEDS: Nystatin Cream 15 GM TUBE 1 APPL TOPICAL ×2 (09:24→22:48)
[2020-10-26] MEDS: Nystatin Powder 15 GM BOTTLE 1 APPL TOPICAL ×2 (10:37→22:48)
--- NOTE | 2020-10-26 11:24 | PC.NURSE ---
1:1 sitter removed from bedside. High fall risk precautions in place, bed alarm in low position with bed alarm on. Patient room across from nurses station for close eye.
--- NOTE | 2020-10-26 15:15 | P.PNIM_ITS ---
Subjective Subjective Date of Service: 10/26/20 Interval History: the patient was seen and evaluated this morning Laying in bed, feels comfortable no reported fever, chills or shortness of breath No reported other overnight events. Systemic review: Non-verbal Physical Exam Vital Signs: Vital Signs: Last Vital Signs Temp 98.5 F 10/26/20 12:00 Pulse 105 H 10/26/20 12:00 Resp 20 10/26/20 12:00 BP 125/81 10/26/20 12:00 Pulse Ox 94 10/26/20 12:00 Body Mass Index 14.1 Constitutional : Alert, , not in distress Neck : Normal inspection, Supple Cardiovascular : RRR, S1 S2, no lower extremity edema Respiratory : Good bilateral air entry, no crackles, wheezes or rhonchi Gastrointestinal: soft, lax, Normal bowel sounds, Non tender Skin : Warm/Dry, No rash Neurological : Alert , non-verbal, No focal deficit Objective Data Current Medications Generic Name Dose Route Start Last Admin Trade Name Freq PRN Reason Stop Dose Admin Acetaminophen 650 mg 09/30/20 20:05 10/22/20 16:01 Acetaminophen Oral Liquid 650 Mg/20.3 Ml Solution OG-TUBE 650 mg Q6H PRN Administration Pain and Fever Acetaminophen 650 mg 10/02/20 21:14 10/24/20 21:34 Acetaminophen Supp 650 Mg Supp.Rect KS 650 mg Q6H PRN Administration Fever Bisacodyl 10 mg 09/28/20 14:02 10/02/20 10:04 Bisacodyl 10 Mg Supp.Rect KS 10 mg DAILY PRN Administration Constipation Enoxaparin Sodium 40 mg 10/25/20 18:00 10/25/20 19:48 Enoxaparin Sodium 40 Mg/0.4 Ml Syringe SUBCUT 40 mg Q24H ELIA Administration Famotidine 20 mg 10/09/20 09:00 10/26/20 09:23 Famotidine 20 Mg Tablet G-TUBE 20 mg DAILY ELIA Administration Fluoxetine HCl 40 mg 10/13/20 09:00 10/26/20 09:22 Fluoxetine Hcl Oral Solution 20 Mg/5 Ml Solution G-TUBE 40 mg DAILY ELIA Administration Lactulose 30 gm 10/08/20 16:32 Lactulose 20 Gm/30 Ml Solution G-TUBE BID PRN constipation Lorazepam 0.5 mg 10/24/20 11:15 10/25/20 14:37 Lorazepam 2 Mg/Ml Vial IVPUSH 0.5 mg Q4H PRN Administration Anxiety Lorazepam 0.5 mg 10/25/20 18:00 10/26/20 09:23 Lorazepam 0.5 Mg Tablet G-TUBE 0.5 mg Q8H ELIA Administration Metoprolol Tartrate 25 mg 10/08/20 21:00 10/26/20 09:23 Metoprolol Tartrate 25 Mg Tablet G-TUBE 25 mg BID ELIA Administration Protocol Morphine Sulfate 2 mg 10/22/20 18:03 10/25/20 05:35 Morphine Sulfate 2 Mg/Ml Cartridge IVPUSH 2 mg Q4H PRN Administration pain / respiratory distress Nystatin 1 appl 10/11/20 21:00 10/26/20 10:37 Nystatin Powder 15 Gm Bottle TOPICAL 1 appl BID ELIA Administration Protocol Nystatin 1 appl 10/19/20 21:00 10/26/20 09:24 Nystatin Cream 15 Gm Tube TOPICAL 1 appl BID ELIA Administration Protocol Ondansetron HCl 4 mg 09/28/20 15:49 09/28/20 15:58 Ondansetron Hcl 4 Mg/2 Ml Vial IVPUSH 4 mg Q6H PRN Administration Nausea Sodium Chloride 3 ml 09/23/20 16:00 10/26/20 09:40 0.9 % Sodium Chloride Flush 3 Ml Syringe IVFLUSH 3 ml QSHIFT ELIA Administration Valproic Acid 500 mg 10/12/20 21:00 10/25/20 19:49 Valproic Acid (As Sodium Salt) 250 Mg/5 Ml Solution G-TUBE 500 mg BEDTIME ELIA Administration Valproic Acid 250 mg 10/13/20 09:00 10/26/20 09:22 Valproic Acid (As Sodium Salt) 250 Mg/5 Ml Solution PO 250 mg DAILY ELIA Administration Labs CBC & Chem 7: 10/26/20 06:44 10/26/20 06:44 Microbiology Microbiology Results: Microbiology 10/19/20 09:45 Blood - Venous Blood Culture - Final No growth after 5 days. 10/19/20 09:45 Blood - Venous Blood Culture - Final No growth after 5 days. 10/15/20 01:05 Blood - Venous Blood Culture - Final No growth after 5 days. 10/15/20 01:01 Blood - Venous Blood Culture - Final No growth after 5 days. 10/14/20 18:21 Urine Go Port Urine Culture - Final No growth. 10/04/20 21:00 Blood - Central Line Blood Culture - Final No growth after 5 days. 10/04/20 20:53 Blood - Central Line Blood Culture - Final No growth after 5 days. 10/04/20 06:56 Sputum - Suctioned Gram Stain - Final 10/04/20 06:56 Sputum - Suctioned Sputum Culture - Final Enterobacter cloacae complex 10/04/20 06:56 Urine Go Port Urine Culture - Final No growth. 09/26/20 15:00 Sputum - Suctioned Gram Stain - Final 09/26/20 15:00 Sputum - Suctioned Sputum Culture - Final Enterobacter cloacae complex 09/22/20 21:39 Blood - Venous Blood Culture - Final No growth after 5 days. 09/22/20 21:38 Blood - Venous Blood Culture - Final No growth after 5 days. 09/22/20 22:07 Urine clean catch - Clean Catch Midstream Urine Culture - Final Escherichia coli Assessment and Plan (1) Acute respiratory failure: Status: Acute Assessment and Plan: This is a 60 yo gentleman with underlying history of developmental delay, cerebral palso, spastic quadriplegia, seizure disorder, dysphasia, wheelchair- bound, [facility] resident who presented to the ED on 09/23/2020 with fever and vomiting. His course has been complicated by multiple episodes of respiratory failure and ultimately required PEG/Trach placement. He was due to transfer on 10/14/2020 but spiked a fever and discharge was cancelled. 1. Acute resp. failure due to recurrent aspiration now with trach and peg continue current care 2. Recurrent aspiration pneumonia resolved, CT chest done -- no pneumonia antibiotics discontinued 10/22/2020, completed multiple course Leukocytosis likely due to leukemoid 3. Seizure disorder depakote 500mg/250mg 4. E. Coli UTI completed treatment go removed 5. Moderate to Severe protein calorie malnutrition tube feeds 6. Mood continue fluoxetine prn ativan 7. Tachycardia multifactorial, at least partially with anxiety improved with ativan. will add scheduled ativan in addition to PRN 8. Abnromal CT head reviewed CT from 10/24/2020. Reviewed recs for MRI. Given patients mentation / baseline -- he is unlikely to tolerate MRI. This was discussed with the sister, Sharri [facility] @ [phone]. Discussed with her in detail how to proceed -- repeat CT vs needed sedation for MRI. She tells me that she would not want him to have brain surgery even if he were to have an acute intracranial bleed and given his DNR/DNI status she opts to avoid sedation to check MRI. Repeat CT head done after discussion with radiology (appears that previous findings may be related to positioning). Repeat CT brain does not show any acute bleed / ischemia. DNR/DNI DVT pptx, lovenox dispo: DC Sitter and then to SNF if stable tomorrowm orning
[2020-10-26] MEDS: Enoxaparin Sodium 40 MG/0.4 ML SYRINGE SUBCUT (17:52)
[2020-10-27] VITALS (7 sets, daily range): BP systolic 99–140; BP diastolic 67–88; PULSE 100–125; RESP 18–22; TEMP 36.4–36.9; O2SAT 98–100; BMI 13.3
[2020-10-27] MEDS: 0.9 % Sodium Chloride Flush 3 ML SYRINGE IVFLUSH ×4 (00:53→21:55)
[2020-10-27] MEDS: LORazepam 0.5 MG TABLET G-TUBE ×3 (00:53→17:15)
--- NOTE | 2020-10-27 07:49 | PC.NURSE ---
I spoke with Ad's sister Sharri at length on 10/26/2020 in the morning regarding Ad's stay here at [facility] [place] and his recent fall on 10/24. She indicated she was concerned that no one called her on Sunday when he fell and that to her knowledge he had never had a fall in the past. I reassured her that I was looking into the matter and get back with her which I did at 5pm 10/26 and we reviewed my assessment and follow up. She informed me that Dr. Mao had spoken with her and updated her on Ad's images and he sustained no injury from this fall. She was inquiring as to his possible transfer date/time to [facility]. I have been rounding on Ad daily and he is doing well. I spoke with Will from the residential where Ad lives as well. Sharri let me know that Ad had a great room mate named Roberto Carlos prior to his hospital admission in a residential. She feels Ad is isolated and alone. I offered to connect Roberto Carlos and Ad via [employer] yesterday with great success. Both men were delighted to see each other over facetime. I reported this information back to Sharri and she was very appreciative of this. I will share the process/contact information with our CM staff so they can perhaps continue to offer this to Ad and Roberto Carlos in his future at [facility]. Yossi's contact is [phone], he was able to help me set up the Facetime on his end with Roberto Carlos. this would be beneficial to continue if feasible at [facility]. Sharri was appreciative for this connection on behalf of her brother. I left my contact information with her for future needs or inquires.
[2020-10-27] MEDS: FLUoxetine HCl Oral Solution 20 MG/5 ML SOLUTION 40 MG G-TUBE (08:48)
[2020-10-27] MEDS: Nystatin Powder 15 GM BOTTLE 1 APPL TOPICAL ×2 (08:48→22:03)
[2020-10-27] MEDS: Famotidine 20 MG TABLET G-TUBE (08:48)
[2020-10-27] MEDS: Metoprolol Tartrate 25 MG TABLET G-TUBE ×2 (08:48→21:54)
[2020-10-27] MEDS: Nystatin Cream 15 GM TUBE 1 APPL TOPICAL ×2 (08:48→22:04)
--- NOTE | 2020-10-27 12:55 | MHC.CLN ---
F/U PT RECEIVING OSMOLITE AT MAX GOAL RATE 40CC/HR WITH 240CC FREE WATER FLUSHES Q SHIFT TO PROVIDE 1440KCALS (30KCALS/KG), 60G PROTEIN (1.3G/KG), 1451CC TOTAL WATER FROM FORMULA AND FLUSHES (32CC/KG) MONITOR LYTES AND WEIGHTS FOLLOWING
--- NOTE | 2020-10-27 13:29 | HO.PM.IMPN ---
Subjective Subjective Date of Service: 10/27/20 Interval History: the patient was seen and evaluated this morning Laying in bed, looks comfortable Systemic review: Non-verbal Physical Exam Vital Signs: Vital Signs: Last Vital Signs Temp 97.5 F 10/27/20 11:38 Pulse 100 10/27/20 11:38 Resp 20 10/27/20 11:38 BP 116/67 10/27/20 11:38 Pulse Ox 100 10/27/20 11:38 Body Mass Index 13.3 Constitutional : Alert, , not in distress Neck : Normal inspection, Supple Cardiovascular : tracheostomy in place, RRR, S1 S2, no lower extremity edema Respiratory : Good bilateral air entry, no crackles, wheezes or rhonchi Gastrointestinal: soft, lax, Normal bowel sounds, Non tender Skin : Warm/Dry, No rash Neurological : Alert , non-verbal, No focal deficit Objective Data Current Medications Generic Name Dose Route Start Last Admin Trade Name Freq PRN Reason Stop Dose Admin Acetaminophen 650 mg 09/30/20 20:05 10/22/20 16:01 Acetaminophen Oral Liquid 650 Mg/20.3 Ml Solution OG-TUBE 650 mg Q6H PRN Administration Pain and Fever Acetaminophen 650 mg 10/02/20 21:14 10/24/20 21:34 Acetaminophen Supp 650 Mg Supp.Rect LA 650 mg Q6H PRN Administration Fever Bisacodyl 10 mg 09/28/20 14:02 10/02/20 10:04 Bisacodyl 10 Mg Supp.Rect LA 10 mg DAILY PRN Administration Constipation Enoxaparin Sodium 40 mg 10/25/20 18:00 10/26/20 17:52 Enoxaparin Sodium 40 Mg/0.4 Ml Syringe SUBCUT 40 mg Q24H ELIA Administration Famotidine 20 mg 10/09/20 09:00 10/27/20 08:48 Famotidine 20 Mg Tablet G-TUBE 20 mg DAILY ELIA Administration Fluoxetine HCl 40 mg 10/13/20 09:00 10/27/20 08:48 Fluoxetine Hcl Oral Solution 20 Mg/5 Ml Solution G-TUBE 40 mg DAILY ELIA Administration Lactulose 30 gm 10/08/20 16:32 Lactulose 20 Gm/30 Ml Solution G-TUBE BID PRN constipation Lorazepam 0.5 mg 10/24/20 11:15 10/25/20 14:37 Lorazepam 2 Mg/Ml Vial IVPUSH 0.5 mg Q4H PRN Administration Anxiety Lorazepam 0.5 mg 10/25/20 18:00 10/27/20 08:48 Lorazepam 0.5 Mg Tablet G-TUBE 0.5 mg Q8H ELIA Administration Metoprolol Tartrate 25 mg 10/08/20 21:00 10/27/20 08:48 Metoprolol Tartrate 25 Mg Tablet G-TUBE 25 mg BID ELIA Administration Protocol Morphine Sulfate 2 mg 10/22/20 18:03 10/25/20 05:35 Morphine Sulfate 2 Mg/Ml Cartridge IVPUSH 2 mg Q4H PRN Administration pain / respiratory distress Nystatin 1 appl 10/11/20 21:00 10/27/20 08:48 Nystatin Powder 15 Gm Bottle TOPICAL 1 appl BID ELIA Administration Protocol Nystatin 1 appl 10/19/20 21:00 10/27/20 08:48 Nystatin Cream 15 Gm Tube TOPICAL 1 appl BID ELIA Administration Protocol Ondansetron HCl 4 mg 09/28/20 15:49 09/28/20 15:58 Ondansetron Hcl 4 Mg/2 Ml Vial IVPUSH 4 mg Q6H PRN Administration Nausea Sodium Chloride 3 ml 09/23/20 16:00 10/27/20 08:47 0.9 % Sodium Chloride Flush 3 Ml Syringe IVFLUSH 3 ml QSHIFT ELIA Administration Valproic Acid 500 mg 10/12/20 21:00 10/26/20 22:47 Valproic Acid (As Sodium Salt) 250 Mg/5 Ml Solution G-TUBE 500 mg BEDTIME ELIA Administration Valproic Acid 250 mg 10/13/20 09:00 10/27/20 08:47 Valproic Acid (As Sodium Salt) 250 Mg/5 Ml Solution PO 250 mg DAILY ELIA Administration Labs CBC & Chem 7: 10/26/20 06:44 10/26/20 06:44 Microbiology Microbiology Results: Microbiology 10/19/20 09:45 Blood - Venous Blood Culture - Final No growth after 5 days. 10/19/20 09:45 Blood - Venous Blood Culture - Final No growth after 5 days. 10/15/20 01:05 Blood - Venous Blood Culture - Final No growth after 5 days. 10/15/20 01:01 Blood - Venous Blood Culture - Final No growth after 5 days. 10/14/20 18:21 Urine Go Port Urine Culture - Final No growth. 10/04/20 21:00 Blood - Central Line Blood Culture - Final No growth after 5 days. 10/04/20 20:53 Blood - Central Line Blood Culture - Final No growth after 5 days. 10/04/20 06:56 Sputum - Suctioned Gram Stain - Final 10/04/20 06:56 Sputum - Suctioned Sputum Culture - Final Enterobacter cloacae complex 10/04/20 06:56 Urine Go Port Urine Culture - Final No growth. 09/26/20 15:00 Sputum - Suctioned Gram Stain - Final 09/26/20 15:00 Sputum - Suctioned Sputum Culture - Final Enterobacter cloacae complex 09/22/20 21:39 Blood - Venous Blood Culture - Final No growth after 5 days. 09/22/20 21:38 Blood - Venous Blood Culture - Final No growth after 5 days. 09/22/20 22:07 Urine clean catch - Clean Catch Midstream Urine Culture - Final Escherichia coli Assessment and Plan (1) Acute respiratory failure: Status: Acute Assessment and Plan: This is a 60 yo gentleman with underlying history of developmental delay, cerebral palso, spastic quadriplegia, seizure disorder, dysphasia, wheelchair-bound, retirement resident who presented to the ED on 09/23/2020 with fever and vomiting. His course has been complicated by multiple episodes of respiratory failure and ultimately required PEG/Trach placement. He was due to transfer on 10/14/2020 but spiked a fever and discharge was cancelled. 1. Acute resp. failure due to recurrent aspiration now with trach and peg continue current care 2. Recurrent aspiration pneumonia resolved, CT chest done -- no pneumonia antibiotics discontinued 10/22/2020, completed multiple course Leukocytosis likely due to leukemoid 3. Seizure disorder depakote 500mg/250mg 4. E. Coli UTI completed treatment go removed 5. Moderate to Severe protein calorie malnutrition tube feeds 6. Mood continue fluoxetine prn ativan 7. Tachycardia multifactorial, at least partially with anxiety improved with ativan. will add scheduled ativan in addition to PRN 8. Abnromal CT head reviewed CT from 10/24/2020. Reviewed recs for MRI. Given patients mentation / baseline -- he is unlikely to tolerate MRI. This was discussed with the sister, Sharri [facility] @ [phone]. Discussed with her in detail how to proceed -- repeat CT vs needed sedation for MRI. She tells me that she would not want him to have brain surgery even if he were to have an acute intracranial bleed and given his DNR/DNI status she opts to avoid sedation to check MRI. Repeat CT head done after discussion with radiology (appears that previous findings may be related to positioning). Repeat CT brain does not show any acute bleed / ischemia. DNR/DNI DVT pptx, lovenox
--- NOTE | 2020-10-27 13:33 | MHC.CM.PN ---
Patient has now been w/o a Sitter for over 24 hours and is ready for dc [facility]CM awaits confirmation from [facility] that they have an available bed today. CM will follow.
--- NOTE | 2020-10-27 14:03 | MHC.CM.PN ---
[facility] does not have an available bed today; CM will f/u in the AM.
[2020-10-27] MEDS: Enoxaparin Sodium 40 MG/0.4 ML SYRINGE SUBCUT (17:16)
[2020-10-28] VITALS (10 sets, daily range): BP systolic 106–144; BP diastolic 60–83; PULSE 112–133; RESP 18–26; TEMP 35.9–37; O2SAT 92–100; BMI 12.6
[2020-10-28] MEDS: LORazepam 0.5 MG TABLET G-TUBE ×3 (02:54→18:36)
--- NOTE | 2020-10-28 08:53 | MHC.CM.PN ---
Information update sent to [facility] this AM. Last Negative Covid result collected 10/25/2020. Another Covid test will be required if [facility] has an available bed for Patient transfer,
[2020-10-28] MEDS: FLUoxetine HCl Oral Solution 20 MG/5 ML SOLUTION 40 MG G-TUBE (10:41)
[2020-10-28] MEDS: Metoprolol Tartrate 25 MG TABLET G-TUBE ×2 (10:42→22:35)
[2020-10-28] MEDS: Famotidine 20 MG TABLET G-TUBE (10:42)
[2020-10-28] MEDS: Nystatin Cream 15 GM TUBE 1 APPL TOPICAL ×2 (10:46→22:35)
[2020-10-28] MEDS: 0.9 % Sodium Chloride Flush 3 ML SYRINGE IVFLUSH ×3 (10:46→22:34)
[2020-10-28] MEDS: Nystatin Powder 15 GM BOTTLE 1 APPL TOPICAL ×2 (10:46→22:34)
--- NOTE | 2020-10-28 14:45 | MHC.CM.PN ---
Patient will not DC today. An avoidable day has been documented. Post acute facility, no available bed. CM working with Rose from [facility] for placement. Notification this afternoon that the facility can not accept Pt today, or tomorrow. [facility] anticipates an available bed Sunday10/30/2020. C Speech Communication Instructor notified as well as, Laurie Enrique from Case management, HCP/SIS Sharri and Dr Villasenor. CM will continue to follow.
--- NOTE | 2020-10-28 14:47 | P.PNIM_ITS ---
Subjective Subjective Date of Service: 10/28/20 Interval History: the patient was seen and evaluated this morning Laying in bed, looks comfortable Systemic review: Non-verbal Physical Exam Vital Signs: Vital Signs: Last Vital Signs Temp 98.2 F 10/28/20 04:00 Pulse 125 H 10/28/20 10:42 Resp 24 H 10/28/20 08:00 BP 130/80 10/28/20 10:42 Pulse Ox 98 10/28/20 08:00 Body Mass Index 12.6 Constitutional : Alert, , not in distress Neck : Normal inspection, Supple Cardiovascular : Sinus tachycardia, RRR, S1 S2, no lower extremity edema Respiratory : tracheostomy in place, fair bilateral air entry, no crackles, bebo ateral scattered rhonchi Gastrointestinal: soft, lax, Normal bowel sounds, Non tender Skin : Warm/Dry, No rash Neurological : Alert , non-verbal, spastic looking, moving all extremities Objective Data Current Medications Generic Name Dose Route Start Last Admin Trade Name Freq PRN Reason Stop Dose Admin Acetaminophen 650 mg 09/30/20 20:05 10/22/20 16:01 Acetaminophen Oral Liquid 650 Mg/20.3 Ml Solution OG-TUBE 650 mg Q6H PRN Administration Pain and Fever Acetaminophen 650 mg 10/02/20 21:14 10/24/20 21:34 Acetaminophen Supp 650 Mg Supp.Rect IA 650 mg Q6H PRN Administration Fever Bisacodyl 10 mg 09/28/20 14:02 10/02/20 10:04 Bisacodyl 10 Mg Supp.Rect IA 10 mg DAILY PRN Administration Constipation Enoxaparin Sodium 40 mg 10/25/20 18:00 10/27/20 17:16 Enoxaparin Sodium 40 Mg/0.4 Ml Syringe SUBCUT 40 mg Q24H ELIA Administration Famotidine 20 mg 10/09/20 09:00 10/28/20 10:42 Famotidine 20 Mg Tablet G-TUBE 20 mg DAILY ELIA Administration Fluoxetine HCl 40 mg 10/13/20 09:00 10/28/20 10:41 Fluoxetine Hcl Oral Solution 20 Mg/5 Ml Solution G-TUBE 40 mg DAILY ELIA Administration Lactulose 30 gm 10/08/20 16:32 Lactulose 20 Gm/30 Ml Solution G-TUBE BID PRN constipation Lorazepam 0.5 mg 10/24/20 11:15 10/25/20 14:37 Lorazepam 2 Mg/Ml Vial IVPUSH 0.5 mg Q4H PRN Administration Anxiety Lorazepam 0.5 mg 10/25/20 18:00 10/28/20 10:42 Lorazepam 0.5 Mg Tablet G-TUBE 0.5 mg Q8H ELIA Administration Metoprolol Tartrate 25 mg 10/08/20 21:00 10/28/20 10:42 Metoprolol Tartrate 25 Mg Tablet G-TUBE 25 mg BID ELIA Administration Protocol Nystatin 1 appl 10/11/20 21:00 10/28/20 10:46 Nystatin Powder 15 Gm Bottle TOPICAL 1 appl BID ELIA Administration Protocol Nystatin 1 appl 10/19/20 21:00 10/28/20 10:46 Nystatin Cream 15 Gm Tube TOPICAL 1 appl BID ELIA Administration Protocol Ondansetron HCl 4 mg 09/28/20 15:49 09/28/20 15:58 Ondansetron Hcl 4 Mg/2 Ml Vial IVPUSH 4 mg Q6H PRN Administration Nausea Sodium Chloride 3 ml 09/23/20 16:00 10/28/20 10:46 0.9 % Sodium Chloride Flush 3 Ml Syringe IVFLUSH 3 ml QSHIFT ELIA Administration Valproic Acid 500 mg 10/12/20 21:00 10/27/20 21:54 Valproic Acid (As Sodium Salt) 250 Mg/5 Ml Solution G-TUBE 500 mg BEDTIME ELIA Administration Valproic Acid 250 mg 10/13/20 09:00 10/28/20 10:42 Valproic Acid (As Sodium Salt) 250 Mg/5 Ml Solution PO 250 mg DAILY ELIA Administration Labs CBC & Chem 7: 10/26/20 06:44 10/26/20 06:44 Microbiology Microbiology Results: Microbiology 10/19/20 09:45 Blood - Venous Blood Culture - Final No growth after 5 days. 10/19/20 09:45 Blood - Venous Blood Culture - Final No growth after 5 days. 10/15/20 01:05 Blood - Venous Blood Culture - Final No growth after 5 days. 10/15/20 01:01 Blood - Venous Blood Culture - Final No growth after 5 days. 10/14/20 18:21 Urine Go Port Urine Culture - Final No growth. 10/04/20 21:00 Blood - Central Line Blood Culture - Final No growth after 5 days. 10/04/20 20:53 Blood - Central Line Blood Culture - Final No growth after 5 days. 10/04/20 06:56 Sputum - Suctioned Gram Stain - Final 10/04/20 06:56 Sputum - Suctioned Sputum Culture - Final Enterobacter cloacae complex 10/04/20 06:56 Urine Go Port Urine Culture - Final No growth. 09/26/20 15:00 Sputum - Suctioned Gram Stain - Final 09/26/20 15:00 Sputum - Suctioned Sputum Culture - Final Enterobacter cloacae complex 09/22/20 21:39 Blood - Venous Blood Culture - Final No growth after 5 days. 09/22/20 21:38 Blood - Venous Blood Culture - Final No growth after 5 days. 09/22/20 22:07 Urine clean catch - Clean Catch Midstream Urine Culture - Final Escherichia coli Assessment and Plan (1) Acute respiratory failure: Status: Acute Assessment and Plan: This is a 60 yo gentleman with underlying history of developmental delay, cerebral palso, spastic quadriplegia, seizure disorder, dysphasia, wheelchair- bound, correction resident who presented to the ED on 09/23/2020 with fever and vomiting. His course has been complicated by multiple episodes of respiratory failure and ultimately required PEG/Trach placement. He was due to transfer on 10/14/2020 but spiked a fever and discharge was cancelled. 1. Acute resp. failure due to recurrent aspiration now with trach and peg continue current care 2. Recurrent aspiration pneumonia resolved, CT chest done -- no pneumonia antibiotics discontinued 10/22/2020, completed multiple course Leukocytosis improved and trended 3. Seizure disorder depakote 500mg/250mg 4. E. Coli UTI completed treatment go removed 5. Moderate to Severe protein calorie malnutrition tube feeds 6. Mood continue fluoxetine prn ativan 7. Sinus Tachycardia multifactorial, with recent respiratory disease, anxiety improved with ativan. scheduled ativan in addition to PRN 8. Abnromal CT head Reported possible bleeding Repeated CT brain does not show any acute bleed / ischemia. DNR/DNI DVT pptx, lovenox
[2020-10-28] MEDS: Enoxaparin Sodium 40 MG/0.4 ML SYRINGE SUBCUT (18:37)
[2020-10-29] VITALS (11 sets, daily range): BP systolic 109–143; BP diastolic 65–83; PULSE 99–153; RESP 18–30; TEMP 36.2–40; O2SAT 96–100; BMI 13.3
--- NOTE | 2020-10-29 | XR_ITS ---
EXAMINATION: XR CHEST CLINICAL INFORMATION: Sepsis. COMPARISON: Chest 10/19/2020 TECHNIQUE: Frontal view of the chest was obtained. FINDINGS: The lungs are well-expanded and clear of acute process. The heart size and pulmonary vascularity is normal. No gross bony abnormality seen. XR/XR chest 1V IMPRESSION: Unremarkable chest exam.
--- NOTE | 2020-10-29 | XR_ITS ---
EXAMINATION: XR ABDOMEN KUB CLINICAL INDICATION: Evaluate for obstruction COMPARISON: CT dated 10/07/2020 TECHNIQUE: AP view of the abdomen. FINDINGS: Gastrostomy tube projects over the expected location of the stomach. The bowel gas pattern is normal with no evidence of ileus or obstruction. No unusual soft tissue calcifications are noted. The bones are unremarkable. XR/XR abdomen 1V IMPRESSION: Nonobstructive bowel gas pattern.
[2020-10-29] MEDS: LORazepam 0.5 MG TABLET G-TUBE ×3 (03:14→17:04)
[2020-10-29] MEDS: Acetaminophen Supp 650 MG SUPP.RECT PR ×2 (04:13→06:11)
[2020-10-29] MEDS: Piperacillin Sodium/Tazobactam 3.375 GM in 0.9 % Sodium Chloride 50 ML IV ×3 (08:46→22:01)
[2020-10-29] MEDS: Metoprolol Tartrate 25 MG TABLET G-TUBE ×2 (08:48→22:01)
[2020-10-29] MEDS: FLUoxetine HCl Oral Solution 20 MG/5 ML SOLUTION 40 MG G-TUBE (08:48)
[2020-10-29] MEDS: 0.9 % Sodium Chloride Flush 3 ML SYRINGE IVFLUSH ×2 (08:48→15:47)
[2020-10-29] MEDS: Famotidine 20 MG TABLET G-TUBE (08:48)
[2020-10-29] MEDS: Nystatin Cream 15 GM TUBE 1 APPL TOPICAL ×2 (08:51→22:02)
[2020-10-29 08:58] LABS: Lactic Acid 1.8 mmol/L (0.5-2.0)
--- NOTE | 2020-10-29 08:59 | P.PNIM_ITS ---
Subjective Subjective Date of Service: 10/29/20 Interval History: the patient was seen and evaluated this morning Laying in bed, looks anxious and has a lot of tremors Reported fevers overnight of 104 with increased tachycardia No reported other overnight events. Systemic review: Non verbal to communicate Physical Exam Vital Signs: Vital Signs: Last Vital Signs Temp 104.0 F H 10/29/20 08:41 Pulse 145 H 10/29/20 08:48 Resp 30 H 10/29/20 08:41 BP 143/83 H 10/29/20 08:48 Pulse Ox 96 10/29/20 08:41 Body Mass Index 13.3 Constitutional : Alert, , seems distressed and anxious Neck : Normal inspection, Supple Cardiovascular : Sinus tachycardia, RRR, S1 S2, no lower extremity edema Respiratory : tracheostomy in place with mildly surrounding his thick secretions, fair bilateral air entry, no crackles, bilateral scattered rhonchi Gastrointestinal: soft, lax, Normal bowel sounds, Non tender Skin : Warm/Dry, No rash Neurological : Alert , non-verbal, spastic looking, moving all extremities Objective Data Current Medications Generic Name Dose Route Start Last Admin Trade Name Freq PRN Reason Stop Dose Admin Acetaminophen 650 mg 09/30/20 20:05 10/22/20 16:01 Acetaminophen Oral Liquid 650 Mg/20.3 Ml Solution OG-TUBE 650 mg Q6H PRN Administration Pain and Fever Acetaminophen 650 mg 10/02/20 21:14 10/29/20 04:13 Acetaminophen Supp 650 Mg Supp.Rect OR 650 mg Q6H PRN Administration Fever Bisacodyl 10 mg 09/28/20 14:02 10/02/20 10:04 Bisacodyl 10 Mg Supp.Rect OR 10 mg DAILY PRN Administration Constipation Enoxaparin Sodium 40 mg 10/25/20 18:00 10/28/20 18:37 Enoxaparin Sodium 40 Mg/0.4 Ml Syringe SUBCUT 40 mg Q24H ELIA Administration Famotidine 20 mg 10/09/20 09:00 10/29/20 08:48 Famotidine 20 Mg Tablet G-TUBE 20 mg DAILY ELIA Administration Fluoxetine HCl 40 mg 10/13/20 09:00 10/29/20 08:48 Fluoxetine Hcl Oral Solution 20 Mg/5 Ml Solution G-TUBE 40 mg DAILY ELIA Administration Piperacillin Sod/Tazobactam 50 mls @ 100 mls/hr 10/29/20 09:00 10/29/20 08:46 Sod 3.375 gm/ Sodium Chloride IV 100 mls/hr Q6H ELIA Administration Vancomycin HCl 1,000 mg/ 270 mls @ 270 mls/hr 10/29/20 08:58 Sodium Chloride IV 10/29/20 09:57 ONCE ONE Lactulose 30 gm 10/08/20 16:32 Lactulose 20 Gm/30 Ml Solution G-TUBE BID PRN constipation Lorazepam 0.5 mg 10/24/20 11:15 10/25/20 14:37 Lorazepam 2 Mg/Ml Vial IVPUSH 0.5 mg Q4H PRN Administration Anxiety Lorazepam 0.5 mg 10/25/20 18:00 10/29/20 03:14 Lorazepam 0.5 Mg Tablet G-TUBE 0.5 mg Q8H ELIA Administration Metoprolol Tartrate 25 mg 10/08/20 21:00 10/29/20 08:48 Metoprolol Tartrate 25 Mg Tablet G-TUBE 25 mg BID ELIA Administration Protocol Nystatin 1 appl 10/11/20 21:00 10/29/20 08:51 Nystatin Powder 15 Gm Bottle TOPICAL Not Given BID ELIA Protocol Nystatin 1 appl 10/19/20 21:00 10/29/20 08:51 Nystatin Cream 15 Gm Tube TOPICAL 1 appl BID ELIA Administration Protocol Ondansetron HCl 4 mg 09/28/20 15:49 09/28/20 15:58 Ondansetron Hcl 4 Mg/2 Ml Vial IVPUSH 4 mg Q6H PRN Administration Nausea Pharmacy Consult 1 each 10/29/20 08:58 Consult Rx Vancomycin Dosing MISCELLANE DAILY PRN Consult order Sodium Chloride 3 ml 09/23/20 16:00 10/29/20 08:48 0.9 % Sodium Chloride Flush 3 Ml Syringe IVFLUSH 3 ml QSHIFT ELIA Administration Valproic Acid 500 mg 10/12/20 21:00 10/28/20 22:34 Valproic Acid (As Sodium Salt) 250 Mg/5 Ml Solution G-TUBE 500 mg BEDTIME ELIA Administration Valproic Acid 250 mg 10/13/20 09:00 10/29/20 08:48 Valproic Acid (As Sodium Salt) 250 Mg/5 Ml Solution PO 250 mg DAILY ELIA Administration Labs CBC & Chem 7: 10/26/20 06:44 10/29/20 11:37 Microbiology Microbiology Results: Microbiology 10/19/20 09:45 Blood - Venous Blood Culture - Final No growth after 5 days. 10/19/20 09:45 Blood - Venous Blood Culture - Final No growth after 5 days. 10/15/20 01:05 Blood - Venous Blood Culture - Final No growth after 5 days. 10/15/20 01:01 Blood - Venous Blood Culture - Final No growth after 5 days. 10/14/20 18:21 Urine [place] Urine Culture - Final No growth. 10/04/20 21:00 Blood - Central Line Blood Culture - Final No growth after 5 days. 10/04/20 20:53 Blood - Central Line Blood Culture - Final No growth after 5 days. 10/04/20 06:56 Sputum - Suctioned Gram Stain - Final 10/04/20 06:56 Sputum - Suctioned Sputum Culture - Final Enterobacter cloacae complex 10/04/20 06:56 Urine [place] Urine Culture - Final No growth. 09/26/20 15:00 Sputum - Suctioned Gram Stain - Final 09/26/20 15:00 Sputum - Suctioned Sputum Culture - Final Enterobacter cloacae complex 09/22/20 21:39 Blood - Venous Blood Culture - Final No growth after 5 days. 09/22/20 21:38 Blood - Venous Blood Culture - Final No growth after 5 days. 09/22/20 22:07 Urine clean catch - Clean Catch Midstream Urine Culture - Final Escherichia coli Assessment and Plan (1) Acute respiratory failure: Status: Acute (2) Sepsis: Status: Acute (3) H/O tracheostomy: Problem details: Patient with leukocytosis Unremarkable testing Probable leukemoid reaction Status: Acute Assessment and Plan: This is a 60 yo gentleman with underlying history of developmental delay, cerebral palso, spastic quadriplegia, seizure disorder, dysphasia, wheelchair- bound, half-way resident who presented to the ED on 09/23/2020 with fever and vomiting. His course has been complicated by multiple episodes of respiratory failure and ultimately required PEG/Trach placement. He was due to transfer on 10/14/2020 but spiked a fever and discharge was cancelled. Sepsis Patient spiking fever with heart rate in 100s Sepsis focused exam done around 730 in morning, no clear source of infection Blood culture sent CXR showing no clear infiltrate Urinalysis within normal could be mucous plugging, aspiration pneumonia or pneumonitis, viral illness Negative COVID test Start broad-spectrum antibiotic of vancomycin and Zosyn until blood cultures finalize Acute resp. failure due to recurrent aspiration now with trach and peg continue current care Stable on 5 L of oxygen Recurrent aspiration pneumonia antibiotics discontinued 10/22/2020, completed multiple course Leukocytosis improved and trended Seizure disorder depakote 500mg/250mg E. Coli UTI completed treatment Moderate to Severe protein calorie malnutrition tube feeds Mood continue fluoxetine prn ativan Sinus Tachycardia multifactorial, with recent respiratory disease, anxiety improved with ativan. scheduled ativan in addition to PRN Abnromal CT head Reported possible bleeding Repeated CT brain does not show any acute bleed / ischemia. DNR/DNI DVT pptx, lovenox
[2020-10-29 09:15] LABS: COVID-19 Test Negative (Negative)
[2020-10-29] MEDS: vancomycin HCL 1,000 MG in 0.9 % Sodium Chloride 250 ML 270 MG IV (09:34)
[2020-10-29] MEDS: Ketorolac Tromethamine 15 MG/ML VIAL IVPUSH (11:44)
[2020-10-29] MEDS: Acetaminophen Oral Liquid 650 MG/20.3 ML SOLUTION PO ×2 (11:44→15:48)
[2020-10-29 12:19] LABS: Anion Gap 18 (12-20); Blood Urea Nitrogen 30 mg/dL (9-16); Calcium 8.6 mg/dL (8.4-10.2); Carbon Dioxide 19 mmol/L (22-29); Chloride 105 mmol/L (96-108); Creatinine Clr Calc Pharmacy 60.7; Estimated Glomerular Filt Rate > 60; Glucose Random 101 mg/dL (60-115); Potassium 4.7 mmol/l (3.3-5.1); Sodium 137 mmol/L (135-145)
[2020-10-29 12:55] LABS: Glucose Urine UA NEG (NEG); Leukocyte Esterase Urine NEG (NEG); Nitrite Urine NEG (NEG); Specific Gravity - Urine 1.015 (1.005-1.025); Urine Blood TRACE (NEG); Urine Ketones NEG (NEG); Urine Protein TRACE MG/DL (NEG-TRACE)
[2020-10-29 12:56] LABS: Appearance Urine HAZY; Color Urine YELLOW
[2020-10-29 13:05] LABS: Bacteria Urine TRACE /LPF; Mucus Urine 2+ /LPF; RBC Urine 0-2 /HPF (0)
--- NOTE | 2020-10-29 13:26 | PC.NURSE ---
AT 0841AM PATIENT TEMP 104.0 RECTALLY, HR 150, RR 30, AND 02 96 WITH TRACH COLLAR. PATIENT TACHYPNEIC, RESTLESS, AND TACHY. DR. REYES AT BEDSIDE. ORDERS FOR LACTIC ACID DRAWN, CXR, AND PLACED PATIENT ON COOLING BLANKET. AT 1018AM PATIENT TEMP 102.0 WITH A HR OF 120 AND AT 1140 TEMP OF 100.7 AND HR 116. AT 1144AM PATIENT GIVEN ONE TIME DOSE OF KETOROLAC 15MG AND ACETAMINOPHEN 650MG AT 1144AM. TEMP AT 1255PM IS 98.6 RECTALLY. PATIENT PLACED OFF COOLING BLANKET AT THIS TIME. NO DISTRESS NOTED AT THIS TIME.
[2020-10-29 13:57] LABS: Hematocrit 32.2 % (42-52); Hemoglobin 10.2 g/dl (14.0-18.0); Mean Corpuscular HGB Conc 31.7 g/dl (31.0-36.0); Mean Corpuscular Hemoglobin 30.1 pg (27.0-33.0); Mean Platelet Volume 11.6 fL (9.4-12.4); Platelet Count 416 X10*3/uL (160-400); Red Blood Count 3.39 X10*6/uL (4.60-5.80); Red Cell Distribution Width 13.6 % (11.0-16.0)
[2020-10-29 14:21] LABS: Atypical Lymph Absolute Manual 0.5 x10*3/uL; Atypical Lymphs Percent Manual 1 % (0-6); Band Neutrophils Percent 12 % (3-5); Lymphocytes Absolute Manual 2.7 X10*3/uL (0.6-4.8); Lymphocytes Percent Manual 5 % (20-40); Metamyelocytes Absolute 0.5 X10*3/uL; Metamyelocytes Percent 1 %; Monocytes Absolute Manual 3.7 X10*3/uL (0.0-1.2); Monocytes Percent Manual 7 % (2-11); Neutrophils Absolute Manual 45.6 X10*3/uL (2.2-7.9); Neutrophils Percent Manual 74 % (45-73)
[2020-10-29 14:22] LABS: Platelet Estimate INCREASED (NORMAL); Platelet Morphology Comment NORMAL
[2020-10-29 14:23] LABS: RBC Morphology NOTED; Toxic Vacuolation PRESENT
[2020-10-29 14:24] LABS: Hypochromasia 1+; Macrocytosis 1+; Polychromasia 1+
[2020-10-29 15:35] LABS: Alanine Aminotransferase 21 U/L (0-40); Albumin Level 3.7 g/dL (3.5-5.0); Alkaline Phosphatase 77 U/L (39-117); Aspartate Amino Transferase 33 U/L (5-37); Bilirubin Direct 0.2 mg/dL (0.0-0.5); Bilirubin Total 0.4 mg/dL (0.0-1.0)
[2020-10-29] MEDS: Enoxaparin Sodium 40 MG/0.4 ML SYRINGE SUBCUT (17:04)
[2020-10-29] MEDS: Nystatin Powder 15 GM BOTTLE 1 APPL TOPICAL (22:02)
[2020-10-29] MEDS: vancomycin HCL 750 MG in 0.9 % Sodium Chloride 250 ML 265 MG IV (22:02)
[2020-10-30] VITALS (10 sets, daily range): BP systolic 111–160; BP diastolic 56–83; PULSE 98–145; RESP 18–25; TEMP 36.3–39.4; O2SAT 93–100; BMI 14.1
[2020-10-30] MEDS: 0.9 % Sodium Chloride Flush 3 ML SYRINGE IVFLUSH ×3 (00:02→16:38)
[2020-10-30] MEDS: Acetaminophen Oral Liquid 650 MG/20.3 ML SOLUTION PO ×4 (00:10→23:57)
[2020-10-30] MEDS: LORazepam 0.5 MG TABLET G-TUBE ×3 (01:40→19:19)
[2020-10-30] MEDS: Piperacillin Sodium/Tazobactam 3.375 GM in 0.9 % Sodium Chloride 50 ML IV ×4 (03:17→21:45)
[2020-10-30 06:57] LABS: Hematocrit 31.3 % (42-52); Hemoglobin 9.7 g/dl (14.0-18.0); Mean Corpuscular Hemoglobin 29.4 pg (27.0-33.0); Mean Corpuscular Volume 94.8 fL (80-98); Platelet Count 347 X10*3/uL (160-400); Red Cell Distribution Width 13.4 % (11.0-16.0); White Blood Count 29.3 X10*3/uL (4.8-10.8)
[2020-10-30 07:30] LABS: Alanine Aminotransferase 19 U/L (0-40); Albumin Level 3.3 g/dL (3.5-5.0); Alkaline Phosphatase 72 U/L (39-117); Aspartate Amino Transferase 23 U/L (5-37); Bilirubin Direct 0.2 mg/dL (0.0-0.5); Bilirubin Total 0.3 mg/dL (0.0-1.0); Total Protein 6.5 g/dL (6.5-8.0)
[2020-10-30 07:32] LABS: Anion Gap 15 (12-20); Blood Urea Nitrogen 30 mg/dL (9-16); Calcium 8.4 mg/dL (8.4-10.2); Carbon Dioxide 25 mmol/L (22-29); Chloride 104 mmol/L (96-108); Creatinine Clr Calc Pharmacy 74.5; Estimated Glomerular Filt Rate > 60; Glucose Random 99 mg/dL (60-115); Potassium 4.2 mmol/l (3.3-5.1); Sodium 140 mmol/L (135-145)
[2020-10-30] MEDS: Metoprolol Tartrate 50 MG TABLET G-TUBE ×2 (09:34→21:47)
[2020-10-30] MEDS: Famotidine 20 MG TABLET G-TUBE (09:34)
[2020-10-30] MEDS: FLUoxetine HCl Oral Solution 20 MG/5 ML SOLUTION 40 MG G-TUBE (09:35)
[2020-10-30] MEDS: Nystatin Cream 15 GM TUBE 1 APPL TOPICAL ×2 (09:37→21:51)
[2020-10-30] MEDS: Nystatin Powder 15 GM BOTTLE 1 APPL TOPICAL ×2 (09:38→21:51)
[2020-10-30] MEDS: vancomycin HCL 750 MG in 0.9 % Sodium Chloride 250 ML 250 MG IV (11:25)
--- NOTE | 2020-10-30 11:47 | MHC.CLN ---
F/U PT RECEIVING OSMOLITE AT MAX GOAL RATE 40CC/HR WITH 240CC FREE WATER FLUSHES Q SHIFT TO PROVIDE 1440KCALS (39KCALS/KG BASED ON ABW), 60G PROTEIN (1.6G/KG), 1451CC TOTAL WATER FROM FORMULA AND FLUSHES (39CC/KG) NOTED FEVERS ADJUST FREE WATER NEEDED WEIGHTS STABLE BUT INCREASED NUTRITION RISK R/T CP MONITOR LYTES AND WEIGHTS FOLLOWING
[2020-10-30 13:00] LABS: Adenovirus PCR Not Detected (Not Detect.); Bordetella parapertussis PCR Not Detected (Not Detect.); Bordetella pertussis PCR Not Detected (Not Detect.); Chlamydia pneumoniae PCR Not Detected (Not Detect.); Coronavirus 229E PCR Not Detected (Not Detect.); Coronavirus HKU1 PCR Not Detected (Not Detect.); Coronavirus NL63 PCR Not Detected (Not Detect.); Coronavirus OC43 PCR Not Detected (Not Detect.); Human metapneumovirus PCR Not Detected (Not Detect.); Influenza A PCR Not Detected (Not Detect.); Influenza B PCR Not Detected (Not Detect.); Mycoplasma pneumoniae PCR Not Detected (Not Detect.); Parainfluenza 1 PCR Not Detected (Not Detect.); Parainfluenza 2 PCR Not Detected (Not Detect.); Parainfluenza 3 PCR Not Detected (Not Detect.); Parainfluenza 4 PCR Not Detected (Not Detect.); RSV PCR Not Detected (Not Detect.); Rhino/Enterovirus PCR Not Detected (Not Detect.); SARS-CoV-2 PCR Not Detected (Not Detect.)
--- NOTE | 2020-10-30 16:45 | P.PNID_ITS ---
Subjective Subjective Date of Service: 10/30/20 Interval History: he has had fever to 103 he has profuse nonbloody diarrhea Objective Data Labs CBC & Chem 7: 10/30/20 05:55 10/30/20 05:55 Labs: Laboratory Results - last 24 hr 10/30/20 10/30/20 10/30/20 05:55 05:55 05:55 WBC 29.3 H RBC 3.30 L Hgb 9.7 L Hct 31.3 L MCV 94.8 MCH 29.4 MCHC 31.0 RDW 13.4 Plt Count 347 MPV 12.0 Absolute Nucleated RBC 0.000 Nucleated RBC % (auto) 0.0 Sodium 140 Potassium 4.2 Chloride 104 Carbon Dioxide 25 Anion Gap 15 BUN 30 H Creatinine 0.57 Estim Creat Clear Calc 74.5 Estimated GFR > 60 Random Glucose 99 Calcium 8.4 Total Bilirubin 0.3 Direct Bilirubin 0.2 AST 23 ALT 19 Alkaline Phosphatase 72 Total Protein 6.5 Albumin 3.3 L Respiratory Panel Daniel Adenovirus (Rapid PCR) B.pert (TEM-PCR) B.parapertussis DNA PCR C. pneumoniae DNA (PCR) Coronavirus OC43 (PCR) Coronavirus HKU1 (PCR) Coronavirus 229E (PCR) Coronavirus NL63 (PCR) Human Metapneumovir PCR Influenza A (RT-PCR) Influenza B (RT-PCR) M. pneumoniae (PCR) Parainfluenza 1 (PCR) Parainfluenza 2 (PCR) Parainfluenza 3 (PCR) Parainfluenza 4 (PCR) RSV (PCR) Entero/Rhino (PCR) SARS-CoV-2 RNA (RT-PCR) 10/30/20 12:49 WBC RBC Hgb Hct MCV MCH MCHC RDW Plt Count MPV Absolute Nucleated RBC Nucleated RBC % (auto) Sodium Potassium Chloride Carbon Dioxide Anion Gap BUN Creatinine Estim Creat Clear Calc Estimated GFR Random Glucose Calcium Total Bilirubin Direct Bilirubin AST ALT Alkaline Phosphatase Total Protein Albumin Respiratory Panel Daniel See Note Adenovirus (Rapid PCR) Not Detected B.pert (TEM-PCR) Not Detected B.parapertussis DNA PCR Not Detected C. pneumoniae DNA (PCR) Not Detected Coronavirus OC43 (PCR) Not Detected Coronavirus HKU1 (PCR) Not Detected Coronavirus 229E (PCR) Not Detected Coronavirus NL63 (PCR) Not Detected Human Metapneumovir PCR Not Detected Influenza A (RT-PCR) Not Detected Influenza B (RT-PCR) Not Detected M. pneumoniae (PCR) Not Detected Parainfluenza 1 (PCR) Not Detected Parainfluenza 2 (PCR) Not Detected Parainfluenza 3 (PCR) Not Detected Parainfluenza 4 (PCR) Not Detected RSV (PCR) Not Detected Entero/Rhino (PCR) Not Detected SARS-CoV-2 RNA (RT-PCR) Not Detected Microbiology Microbiology Results: Microbiology 10/29/20 08:25 Blood - Venous Blood Culture - Preliminary No growth after 24 hours. 10/29/20 08:25 Blood - Venous Blood Culture - Preliminary No growth after 24 hours. 10/29/20 22:45 Neck Gram Stain - Final 10/19/20 09:45 Blood - Venous Blood Culture - Final No growth after 5 days. 10/19/20 09:45 Blood - Venous Blood Culture - Final No growth after 5 days. 10/15/20 01:05 Blood - Venous Blood Culture - Final No growth after 5 days. 10/15/20 01:01 Blood - Venous Blood Culture - Final No growth after 5 days. 10/14/20 18:21 Urine [place] Urine Culture - Final No growth. 10/04/20 21:00 Blood - Central Line Blood Culture - Final No growth after 5 days. 10/04/20 20:53 Blood - Central Line Blood Culture - Final No growth after 5 days. 10/04/20 06:56 Sputum - Suctioned Gram Stain - Final 10/04/20 06:56 Sputum - Suctioned Sputum Culture - Final Enterobacter cloacae complex 10/04/20 06:56 Urine [place] Urine Culture - Final No growth. 09/26/20 15:00 Sputum - Suctioned Gram Stain - Final 09/26/20 15:00 Sputum - Suctioned Sputum Culture - Final Enterobacter cloacae complex 09/22/20 21:39 Blood - Venous Blood Culture - Final No growth after 5 days. 09/22/20 21:38 Blood - Venous Blood Culture - Final No growth after 5 days. 09/22/20 22:07 Urine clean catch - Clean Catch Midstream Urine Culture - Final Escherichia coli Physical Exam Vital Signs: Vital Signs: Last Vital Signs Temp 103.0 F H 10/30/20 15:43 Pulse 130 H 10/30/20 15:43 Resp 25 H 10/30/20 15:43 BP 160/83 H 10/30/20 15:43 Pulse Ox 95 10/30/20 15:43 Body Mass Index 14.1 Const: General: cooperative HENMT: Head: Yes atraumatic Resp: Effort & Inspection: normal respiratory effort Cardio: Rate: regular rate Rhythm: regular rhythm GI: Palpation (GI): nontender Extrem: General: Yes normal to inspection Assessment and Plan Assessment and plan (1) H/O tracheostomy: Problem details: Patient with leukocytosis Unremarkable testing Probable leukemoid reaction Status: Acute (2) Fever of unknown origin: Problem details: Patient may have microaspiration He has diarrhea also possible Cdiff This aspiration may continue and patient may have no good solution,on antibiotic s quite a bit Status: Acute Assessment and Plan: Would stop Vancomycin Check Cdiff Stop Zosyn if Cdiff positive and no other source seen Time Spent With Patient Time: Total time spent is greater than 50% in coordination of care (as documented) at patient's floor/unit and/or counseling patient: Time with patient: less than 15 minutes
--- NOTE | 2020-10-30 17:07 | HO.PM.IMPN ---
Subjective Subjective Date of Service: 10/30/20 Interval History: Interval History: the patient was seen and evaluated this morning Laying in bed, looks more comfortable today Still having fevers an increase tachycardia No clear source of infection No reported other overnight events. Systemic review: Non verbal to communicate Physical Exam Vital Signs: Vital Signs: Last Vital Signs Temp 103.0 F H 10/30/20 15:43 Pulse 130 H 10/30/20 15:43 Resp 25 H 10/30/20 15:43 BP 160/83 H 10/30/20 15:43 Pulse Ox 95 10/30/20 15:43 Body Mass Index 14.1 Constitutional : Alert, , not in distress Neck : Normal inspection, Supple Cardiovascular : Sinus tachycardia, RRR, S1 S2, no lower extremity edema Respiratory : tracheostomy in place with mildly surrounding his thick secretions, fair bilateral air entry, no crackles, bilateral scattered rhonchi Gastrointestinal: soft, lax, Normal bowel sounds, Non tender Skin : Warm/Dry, No rash Neurological : Alert , non-verbal, spastic looking, moving all extremities Objective Data Current Medications Generic Name Dose Route Start Last Admin Trade Name Freq PRN Reason Stop Dose Admin Acetaminophen 650 mg 09/30/20 20:05 10/22/20 16:01 Acetaminophen Oral Liquid 650 Mg/20.3 Ml Solution OG-TUBE 650 mg Q6H PRN Administration Pain and Fever Acetaminophen 650 mg 10/02/20 21:14 10/29/20 04:13 Acetaminophen Supp 650 Mg Supp.Rect [place] 650 mg Q6H PRN Administration Fever Acetaminophen 650 mg 10/29/20 11:25 10/30/20 16:42 Acetaminophen Oral Liquid 650 Mg/20.3 Ml Solution PO 10/31/20 00:01 650 mg QSHIFT ELIA Administration Bisacodyl 10 mg 09/28/20 14:02 10/02/20 10:04 Bisacodyl 10 Mg Supp.Rect [place] 10 mg DAILY PRN Administration Constipation Enoxaparin Sodium 40 mg 10/25/20 18:00 10/29/20 17:04 Enoxaparin Sodium 40 Mg/0.4 Ml Syringe SUBCUT 40 mg Q24H ELIA Administration Famotidine 20 mg 10/09/20 09:00 10/30/20 09:34 Famotidine 20 Mg Tablet G-TUBE 20 mg DAILY ELIA Administration Fluoxetine HCl 40 mg 10/13/20 09:00 10/30/20 09:35 Fluoxetine Hcl Oral Solution 20 Mg/5 Ml Solution G-TUBE 40 mg DAILY ELIA Administration Piperacillin Sod/Tazobactam 50 mls @ 100 mls/hr 10/29/20 09:00 10/30/20 15:25 Sod 3.375 gm/ Sodium Chloride IV Infused Q6H ELIA Infusion Lactulose 30 gm 10/08/20 16:32 Lactulose 20 Gm/30 Ml Solution G-TUBE BID PRN constipation Lorazepam 0.5 mg 10/24/20 11:15 10/25/20 14:37 Lorazepam 2 Mg/Ml Vial IVPUSH 0.5 mg Q4H PRN Administration Anxiety Lorazepam 0.5 mg 10/25/20 18:00 10/30/20 09:34 Lorazepam 0.5 Mg Tablet G-TUBE 0.5 mg Q8H ELIA Administration Metoprolol Tartrate 50 mg 10/30/20 21:00 10/30/20 09:34 Metoprolol Tartrate 50 Mg Tablet G-TUBE 50 mg BID ELIA Administration Protocol Nystatin 1 appl 10/11/20 21:00 10/30/20 09:38 Nystatin Powder 15 Gm Bottle TOPICAL 1 appl BID ELIA Administration Protocol Nystatin 1 appl 10/19/20 21:00 10/30/20 09:37 Nystatin Cream 15 Gm Tube TOPICAL 1 appl BID ELIA Administration Protocol Ondansetron HCl 4 mg 09/28/20 15:49 09/28/20 15:58 Ondansetron Hcl 4 Mg/2 Ml Vial IVPUSH 4 mg Q6H PRN Administration Nausea Pharmacy Consult 1 each 10/29/20 08:58 Consult Rx Vancomycin Dosing MISCELLANE DAILY PRN Consult order Sodium Chloride 3 ml 09/23/20 16:00 10/30/20 16:38 0.9 % Sodium Chloride Flush 3 Ml Syringe IVFLUSH 3 ml QSHIFT ELIA Administration Valproic Acid 500 mg 10/12/20 21:00 10/29/20 22:01 Valproic Acid (As Sodium Salt) 250 Mg/5 Ml Solution G-TUBE 500 mg BEDTIME ELIA Administration Valproic Acid 250 mg 10/13/20 09:00 10/30/20 09:34 Valproic Acid (As Sodium Salt) 250 Mg/5 Ml Solution PO 250 mg DAILY ELIA Administration Labs CBC & Chem 7: 10/30/20 05:55 10/30/20 05:55 Microbiology Microbiology Results: Microbiology 10/29/20 08:25 Blood - Venous Blood Culture - Preliminary No growth after 24 hours. 10/29/20 08:25 Blood - Venous Blood Culture - Preliminary No growth after 24 hours. 10/29/20 22:45 Neck Gram Stain - Final 10/19/20 09:45 Blood - Venous Blood Culture - Final No growth after 5 days. 10/19/20 09:45 Blood - Venous Blood Culture - Final No growth after 5 days. 10/15/20 01:05 Blood - Venous Blood Culture - Final No growth after 5 days. 10/15/20 01:01 Blood - Venous Blood Culture - Final No growth after 5 days. 10/14/20 18:21 Urine [place] Urine Culture - Final No growth. 10/04/20 21:00 Blood - Central Line Blood Culture - Final No growth after 5 days. 10/04/20 20:53 Blood - Central Line Blood Culture - Final No growth after 5 days. 10/04/20 06:56 Sputum - Suctioned Gram Stain - Final 10/04/20 06:56 Sputum - Suctioned Sputum Culture - Final Enterobacter cloacae complex 10/04/20 06:56 Urine [place] Urine Culture - Final No growth. 09/26/20 15:00 Sputum - Suctioned Gram Stain - Final 09/26/20 15:00 Sputum - Suctioned Sputum Culture - Final Enterobacter cloacae complex 09/22/20 21:39 Blood - Venous Blood Culture - Final No growth after 5 days. 09/22/20 21:38 Blood - Venous Blood Culture - Final No growth after 5 days. 09/22/20 22:07 Urine clean catch - Clean Catch Midstream Urine Culture - Final Escherichia coli Assessment and Plan (1) Acute respiratory failure: Status: Acute (2) Sepsis: Status: Acute (3) H/O tracheostomy: Status: Acute Assessment and Plan: This is a 60 yo gentleman with underlying history of developmental delay, cerebral palso, spastic quadriplegia, seizure disorder, dysphasia, wheelchair-bound, correction resident who presented to the ED on 09/23/2020 with fever and vomiting. His course has been complicated by multiple episodes of respiratory failure and ultimately required PEG/Trach placement. He was due to transfer on 10/14/2020 but spiked a fever and discharge was cancelled. Sepsis Patient spiking fever with heart rate in 100s Likely lung source with aspiration, possible skin Blood culture pending CXR showing no clear infiltrate Urinalysis within normal could be mucous plugging, aspiration pneumonia or pneumonitis, viral illness Negative COVID test Id input appreciated, discontinue vancomycin and continue Zosyn Pending C diff Acute resp. failure due to recurrent aspiration now with trach and peg continue current care Stable on 5 L of oxygen To get pulmonology to evaluate the tracheostomy Recurrent aspiration pneumonia antibiotics discontinued 10/22/2020, completed multiple course Leukocytosis improved and trended Seizure disorder depakote 500mg/250mg E. Coli UTI completed treatment Moderate to Severe protein calorie malnutrition tube feeds Mood continue fluoxetine prn ativan Sinus Tachycardia multifactorial, with recent respiratory disease, anxiety improved with ativan. scheduled ativan in addition to PRN Abnromal CT head Reported possible bleeding Repeated CT brain does not show any acute bleed / ischemia. DNR/DNI DVT pptx, lovenox
[2020-10-30] MEDS: Enoxaparin Sodium 40 MG/0.4 ML SYRINGE SUBCUT (19:19)
[2020-10-30] MEDS: Ketorolac Tromethamine 15 MG/ML VIAL IVPUSH (19:19)
[2020-10-30 22:09] LABS: Vancomycin Trough 9.3 mcg/mL (10.0-20.0)
[2020-10-31] VITALS (7 sets, daily range): BP systolic 128–149; BP diastolic 62–98; PULSE 78–105; RESP 18–22; TEMP 36.2–37.6; O2SAT 96–100; BMI 14.3
[2020-10-31] MEDS: LORazepam 0.5 MG TABLET G-TUBE ×3 (02:53→17:12)
[2020-10-31] MEDS: Piperacillin Sodium/Tazobactam 3.375 GM in 0.9 % Sodium Chloride 50 ML IV ×4 (02:53→21:47)
[2020-10-31 06:57] LABS: Hematocrit 29.1 % (42-52); Hemoglobin 9.2 g/dl (14.0-18.0); Mean Corpuscular HGB Conc 31.6 g/dl (31.0-36.0); Mean Corpuscular Hemoglobin 29.9 pg (27.0-33.0); Mean Corpuscular Volume 94.5 fL (80-98); Mean Platelet Volume 12.4 fL (9.4-12.4); Platelet Count 294 X10*3/uL (160-400); Red Blood Count 3.08 X10*6/uL (4.60-5.80); Red Cell Distribution Width 13.4 % (11.0-16.0)
[2020-10-31 07:25] LABS: Anion Gap 12 (12-20); Blood Urea Nitrogen 26 mg/dL (9-16); Calcium 8.2 mg/dL (8.4-10.2); Carbon Dioxide 26 mmol/L (22-29); Chloride 107 mmol/L (96-108); Creatinine Clr Calc Pharmacy 74.4; Estimated Glomerular Filt Rate > 60; Glucose Random 101 mg/dL (60-115); Potassium 4.3 mmol/l (3.3-5.1); Sodium 141 mmol/L (135-145)
[2020-10-31] MEDS: Famotidine 20 MG TABLET G-TUBE (10:27)
[2020-10-31] MEDS: Acetaminophen Oral Liquid 650 MG/20.3 ML SOLUTION PO ×2 (10:27→16:15)
[2020-10-31] MEDS: Metoprolol Tartrate 50 MG TABLET G-TUBE ×2 (10:27→21:46)
[2020-10-31] MEDS: FLUoxetine HCl Oral Solution 20 MG/5 ML SOLUTION 40 MG G-TUBE (10:27)
[2020-10-31] MEDS: Nystatin Powder 15 GM BOTTLE 1 APPL TOPICAL ×2 (10:28→21:48)
[2020-10-31] MEDS: 0.9 % Sodium Chloride Flush 3 ML SYRINGE IVFLUSH ×3 (10:28→21:47)
[2020-10-31] MEDS: Nystatin Cream 15 GM TUBE 1 APPL TOPICAL ×2 (10:28→21:48)
--- NOTE | 2020-10-31 15:37 | P.PNIM_ITS ---
Subjective Subjective Date of Service: 10/31/20 Interval History: the patient was seen and evaluated this morning Laying in bed, looks comfortable today Still having fevers an increase tachycardia, on scheduled Tylenol and cooling blanket No clear source of infection No reported other overnight events. Systemic review: Non verbal to communicate Physical Exam Vital Signs: Vital Signs: Last Vital Signs Temp 97.6 F 10/31/20 12:00 Pulse 93 10/31/20 12:00 Resp 18 10/31/20 12:00 BP 149/75 H 10/31/20 12:00 Pulse Ox 99 10/31/20 12:00 Body Mass Index 14.3 Constitutional : Alert, , not in distress Neck : Normal inspection, Supple Cardiovascular : Sinus tachycardia, RRR, S1 S2, no lower extremity edema Respiratory : tracheostomy in place with mildly surrounding his thick secretions, fair bilateral air entry, no crackles, bilateral scattered rhonchi Gastrointestinal: soft, lax, Normal bowel sounds, Non tender Skin : Warm/Dry, No rash Neurological : Alert , non-verbal, spastic looking, moving all extremities Objective Data Current Medications Generic Name Dose Route Start Last Admin Trade Name Freq PRN Reason Stop Dose Admin Acetaminophen 650 mg 09/30/20 20:05 10/22/20 16:01 Acetaminophen Oral Liquid 650 Mg/20.3 Ml Solution OG-TUBE 650 mg Q6H PRN Administration Pain and Fever Acetaminophen 650 mg 10/02/20 21:14 10/29/20 04:13 Acetaminophen Supp 650 Mg Supp.Rect [place] 650 mg Q6H PRN Administration Fever Acetaminophen 650 mg 10/29/20 11:25 10/31/20 10:27 Acetaminophen Oral Liquid 650 Mg/20.3 Ml Solution PO 11/02/20 00:01 650 mg QSHIFT ELIA Administration Bisacodyl 10 mg 09/28/20 14:02 10/02/20 10:04 Bisacodyl 10 Mg Supp.Rect [place] 10 mg DAILY PRN Administration Constipation Enoxaparin Sodium 40 mg 10/25/20 18:00 10/30/20 19:19 Enoxaparin Sodium 40 Mg/0.4 Ml Syringe SUBCUT 40 mg Q24H ELIA Administration Famotidine 20 mg 10/09/20 09:00 10/31/20 10:27 Famotidine 20 Mg Tablet G-TUBE 20 mg DAILY ELIA Administration Fluoxetine HCl 40 mg 10/13/20 09:00 10/31/20 10:27 Fluoxetine Hcl Oral Solution 20 Mg/5 Ml Solution G-TUBE 40 mg DAILY ELIA Administration Piperacillin Sod/Tazobactam 50 mls @ 100 mls/hr 10/29/20 09:00 10/31/20 11:00 Sod 3.375 gm/ Sodium Chloride IV Infused Q6H ELIA Infusion Lactulose 30 gm 10/08/20 16:32 Lactulose 20 Gm/30 Ml Solution G-TUBE BID PRN constipation Lorazepam 0.5 mg 10/24/20 11:15 10/25/20 14:37 Lorazepam 2 Mg/Ml Vial IVPUSH 0.5 mg Q4H PRN Administration Anxiety Lorazepam 0.5 mg 10/30/20 18:30 10/31/20 10:27 Lorazepam 0.5 Mg Tablet G-TUBE 0.5 mg Q8H ELIA Administration Metoprolol Tartrate 50 mg 10/30/20 21:00 10/31/20 10:27 Metoprolol Tartrate 50 Mg Tablet G-TUBE 50 mg BID ELIA Administration Protocol Nystatin 1 appl 10/11/20 21:00 10/31/20 10:28 Nystatin Powder 15 Gm Bottle TOPICAL 1 appl BID ELIA Administration Protocol Nystatin 1 appl 10/19/20 21:00 10/31/20 10:28 Nystatin Cream 15 Gm Tube TOPICAL 1 appl BID ELIA Administration Protocol Ondansetron HCl 4 mg 09/28/20 15:49 09/28/20 15:58 Ondansetron Hcl 4 Mg/2 Ml Vial IVPUSH 4 mg Q6H PRN Administration Nausea Pharmacy Consult 1 each 10/29/20 08:58 Consult Rx Vancomycin Dosing MISCELLANE DAILY PRN Consult order Sodium Chloride 3 ml 09/23/20 16:00 10/31/20 10:28 0.9 % Sodium Chloride Flush 3 Ml Syringe IVFLUSH 3 ml QSHIFT ELIA Administration Valproic Acid 500 mg 10/12/20 21:00 10/30/20 21:46 Valproic Acid (As Sodium Salt) 250 Mg/5 Ml Solution G-TUBE 500 mg BEDTIME ELIA Administration Valproic Acid 250 mg 10/13/20 09:00 10/31/20 10:27 Valproic Acid (As Sodium Salt) 250 Mg/5 Ml Solution PO 250 mg DAILY ELIA Administration Labs CBC & Chem 7: 10/31/20 05:48 10/31/20 05:48 Microbiology Microbiology Results: Microbiology 10/29/20 22:45 Neck Gram Stain - Final 10/29/20 22:45 Neck Routine Culture - Preliminary Staphylococcus aureus 10/29/20 08:25 Blood - Venous Blood Culture - Preliminary No growth after 48 hours. 10/29/20 08:25 Blood - Venous Blood Culture - Preliminary No growth after 48 hours. 10/19/20 09:45 Blood - Venous Blood Culture - Final No growth after 5 days. 10/19/20 09:45 Blood - Venous Blood Culture - Final No growth after 5 days. 10/15/20 01:05 Blood - Venous Blood Culture - Final No growth after 5 days. 10/15/20 01:01 Blood - Venous Blood Culture - Final No growth after 5 days. 10/14/20 18:21 Urine [place] Urine Culture - Final No growth. 10/04/20 21:00 Blood - Central Line Blood Culture - Final No growth after 5 days. 10/04/20 20:53 Blood - Central Line Blood Culture - Final No growth after 5 days. 10/04/20 06:56 Sputum - Suctioned Gram Stain - Final 10/04/20 06:56 Sputum - Suctioned Sputum Culture - Final Enterobacter cloacae complex 10/04/20 06:56 Urine [place] Urine Culture - Final No growth. 09/26/20 15:00 Sputum - Suctioned Gram Stain - Final 09/26/20 15:00 Sputum - Suctioned Sputum Culture - Final Enterobacter cloacae complex 09/22/20 21:39 Blood - Venous Blood Culture - Final No growth after 5 days. 09/22/20 21:38 Blood - Venous Blood Culture - Final No growth after 5 days. 09/22/20 22:07 Urine clean catch - Clean Catch Midstream Urine Culture - Final Escherichia coli Assessment and Plan (1) Acute respiratory failure: Status: Acute (2) Sepsis: Status: Acute (3) H/O tracheostomy: Status: Acute Assessment and Plan: This is a 60 yo gentleman with underlying history of developmental delay, c erebral palso, spastic quadriplegia, seizure disorder, dysphasia, wheelchair- bound, long-term resident who presented to the ED on 09/23/2020 with fever and vomiting. His course has been complicated by multiple episodes of respiratory failure and ultimately required PEG/Trach placement. He was due to transfer on 10/14/2020 but spiked a fever and discharge was cancelled. Sepsis Patient continues spiking fever with heart rate in 100s Likely lung source with aspiration, possible skin Blood culture pending CXR showing no clear infiltrate Urinalysis within normal could be mucous plugging, aspiration pneumonia or pneumonitis, viral illness Negative COVID test and spirometry panel Id input appreciated, discontinue vancomycin and continue Zosyn Pending C diff Acute resp. failure due to recurrent aspiration now with trach and peg continue current care Stable on 5 L of oxygen To get pulmonology to evaluate the tracheostomy Recurrent aspiration pneumonia antibiotics discontinued 10/22/2020, completed multiple course Leukocytosis improved and trended Seizure disorder depakote 500mg/250mg E. Coli UTI completed treatment Moderate to Severe protein calorie malnutrition tube feeds Mood continue fluoxetine prn ativan Sinus Tachycardia multifactorial, with recent respiratory disease, anxiety improved with ativan. scheduled ativan in addition to PRN Abnromal CT head Reported possible bleeding Repeated CT brain does not show any acute bleed / ischemia. DNR/DNI DVT pptx, lovenox
[2020-10-31] MEDS: Enoxaparin Sodium 40 MG/0.4 ML SYRINGE SUBCUT (17:12)
--- NOTE | 2020-10-31 22:17 | PC.NURSE ---
22:00 patient's temp was noted to be 95.4 on the cooling blanket, MD notified an took patient off the cooling blanket. will continue to monitor.
[2020-11-01] VITALS (9 sets, daily range): BP systolic 108–156; BP diastolic 66–82; PULSE 74–98; RESP 18–20; TEMP 36–36.9; O2SAT 97–100; BMI 13.3
[2020-11-01] MEDS: Piperacillin Sodium/Tazobactam 3.375 GM in 0.9 % Sodium Chloride 50 ML IV ×2 (04:08→08:23)
[2020-11-01] MEDS: LORazepam 0.5 MG TABLET G-TUBE ×3 (04:08→18:17)
[2020-11-01] MEDS: FLUoxetine HCl Oral Solution 20 MG/5 ML SOLUTION 40 MG G-TUBE (08:25)
[2020-11-01] MEDS: Acetaminophen Oral Liquid 650 MG/20.3 ML SOLUTION OG-TUBE (08:25)
[2020-11-01] MEDS: Famotidine 20 MG TABLET G-TUBE (08:26)
[2020-11-01] MEDS: Metoprolol Tartrate 50 MG TABLET G-TUBE ×2 (08:26→22:09)
[2020-11-01] MEDS: 0.9 % Sodium Chloride Flush 3 ML SYRINGE IVFLUSH ×2 (08:28→16:47)
[2020-11-01] MEDS: Acetaminophen Oral Liquid 650 MG/20.3 ML SOLUTION PO ×2 (09:05→16:49)
--- NOTE | 2020-11-01 09:19 | P.CONPL_ITS ---
History of Present Illness History of Present Illness Consult date: 11/01/20 Chief complaint: acute hypoxemic respiratory failure with bilateral Narrative: 60-year-old with history of cerebral palsy who is wheelchair-bound does not have any coordination of extremities and is nonverbal and has had progressive dysphagia over time who was noted to vomit on the day of admission yesterday and shortly thereafter progressive respiratory distress presenting with acute hypoxemic respiratory failure with extensive bilateral infiltrates but testing COVID negative and the entire respiratory viral panel is negative as well but because he comes from a halfway situation was treated as a health care associated pneumonia with Zosyn and vancomycin and also noted to have an E coli urinary tract infection obviously responsive to the Zosyn and today has resolving leukocytosis but persistent left shift and dramatically clearing chest x-ray along with reduction of FiO2 requirements to 30% and minutes ventilatory requirements below 10 liters/minute doing comfortably well on a pressure control mode. The patient did undergo a PEG/Trach and was able to tranfer to the floor. Currently has a #8 DIC cuffed trach. He has continued to have fevers off and on. He has had some redness or on the Tracheostomy site. Culture was done demonstrating positive for Staph aureus. Is unlikely the source of the fevers but likely he that he has some component of tracheitis. Therefore treating the Staph aureus would be appropriate. Review of Systems Review of Systems: Yes Unobtainable due to mental condition Neurologic: Reports confusion Psychiatric: Psychiatric: Reports confusion PMFSH Past Medical History Medical History (Updated 11/01/20 @ 09:39 by Shukri Maier MD) Acute respiratory failure Anxiety Aspiration pneumonia Cerebral palsy Fever of unknown origin GERD (gastroesophageal reflux disease) Osteoporosis Seizure Sepsis Spastic quadriplegia Functional capacity: bed bound Family History Family history: reviewed and not pertinent Surgical History Surgical History (Updated 10/30/20 @ 17:08 by Jenna Villasenor MD) H/O tracheostomy Social History Social History Household Members: Other Household Members Other:: long term Housing: House Alcohol intake: unknown Smoking Status: Unknown if ever smoked Use of substances other than those prescribed or required for medical reasons: Unknown Currently Displaying Signs/Symptoms of Drug Intoxication Withdrawal: No Advance Directives: No Advance Directives Information Provided: Yes Do you have thoughts of harming others: None Do you have a plan to hurt others: No Plan Recently lost weight without trying: Unsure service: No Current occupational status: disabled Meds Allergies Allergy/AdvReac Type Severity Reaction Status Date / Time No Known Allergies Allergy Verified 09/22/20 22:17 Home Medications Medication Instructions Recorded Confirmed Type alendronate 70 mg PO Q7D 09/22/20 09/22/20 History Physical Exam Vital Signs: Vital Signs: Last Vital Signs Temp 96.8 F 11/01/20 07:54 Pulse 90 11/01/20 08:26 Resp 20 11/01/20 07:54 BP 108/70 11/01/20 08:26 Pulse Ox 98 11/01/20 07:54 Body Mass Index 13.3 Const: General: Physically active, confusion and other (contracted, bed bound) Orientation/consciousness: confusion HENMT: General nose exam: Abnormal external nose present and Nasal discharge present Eyes: Pupils: Equal, round and reactive pupils present Neck: Neck: Yes normal visual inspection, Yes full ROM, Yes no lymphadenopathy and Yes other (trach midline, redness around stoma) Chest: Chest palpation & inspection: normal inspection of the chest Resp: Auscultation: diminished lung sounds Cardio: Rate: regular rate Rhythm: regular rhythm Heart sounds: S1 normal heart sound present and S2 normal heart sound present GI: Palpation (GI): Soft to palpation and nontender Auscultation: normal bowel sounds : General: Yes no CVA tenderness Back/Spine/Pelvis: Back: no CVA tenderness Skin: General skin exam: rashes and/or lesions noted Neuro: General: confusion Cranial nerves: Yes Equal, round and reactive pupils present Results Laboratory Findings CBC and BMP: 10/31/20 05:48 10/31/20 05:48 ABG, PT/INR, D-dimer: ABG ABG pH 7.44 (7.35-7.45) 09/26/20 10:15 ABG pCO2 29 mmhg (32-45) L 09/26/20 10:15 ABG pO2 > 450 mmhg (83-108) H 09/26/20 10:15 ABG O2 Saturation 98.8 % 09/26/20 10:15 PT/INR, D-dimer PT 13.7 SEC (10.8-13.0) H 10/05/20 16:40 INR 1.2 (0.9-1.1) H 10/05/20 16:40 D-Dimer 358 NG/ML 09/25/20 05:20 Abnormal lab findings: Abnormal Labs 09/22/20 09/22/20 09/22/20 21:29 21:29 21:29 WBC 19.6 H RBC 4.08 L Hgb 12.6 L Hct 37.7 L Plt Count Immature Gran % (Auto) Neut % (Auto) 92.4 H Lymph % (Auto) 1.8 L [place] % (Auto) Lymph # (Auto) 0.4 L [place] # (Auto) Eos # (Auto) Abs Immat Gran (auto) 0.05 H Absolute Neuts (auto) 18.1 H Absolute Nucleated RBC Neutrophils % (Manual) Band Neutrophils % Lymphocytes % (Manual) Abs Neuts (Manual) Monocytes # (Manual) PT INR ABG pCO2 ABG pO2 ABG HCO3 VBG pH Sodium Potassium Chloride Carbon Dioxide Anion Gap BUN 23 H Creatinine Random Glucose 118 H Fasting Glucose Lactic Acid 2.7 H* Calcium Phosphorus Ferritin AST ALT Lactate Dehydrogenase Total Creatine Kinase C-Reactive Protein Total Protein Albumin Urine Protein Urine Blood Ur Leukocyte Esterase Urine RBC Vancomycin Trough 09/22/20 09/23/20 09/23/20 21:59 04:10 10:41 WBC 16.9 H RBC 3.32 L Hgb 10.3 L Hct 31.6 L Plt Count 144 L D Immature Gran % (Auto) Neut % (Auto) Lymph % (Auto) [place] % (Auto) Lymph # (Auto) [place] # (Auto) Eos # (Auto) Abs Immat Gran (auto) Absolute Neuts (auto) Absolute Nucleated RBC Neutrophils % (Manual) Band Neutrophils % 19 H Lymphocytes % (Manual) 9 L Abs Neuts (Manual) 14.9 H Monocytes # (Manual) PT INR ABG pCO2 ABG pO2 ABG HCO3 VBG pH Sodium Potassium Chloride Carbon Dioxide Anion Gap BUN Creatinine Random Glucose Fasting Glucose Lactic Acid 2.2 H* Calcium Phosphorus Ferritin AST ALT Lactate Dehydrogenase Total Creatine Kinase C-Reactive Protein Total Protein Albumin Urine Protein Urine Blood 1+ H Ur Leukocyte Esterase TRACE H Urine RBC Vancomycin Trough 09/23/20 09/23/20 09/24/20 10:41 12:53 05:20 WBC 11.3 H RBC 3.07 L Hgb 9.2 L Hct 28.4 L Plt Count 140 L Immature Gran % (Auto) Neut % (Auto) 93.6 H Lymph % (Auto) 2.1 L [place] % (Auto) Lymph # (Auto) 0.2 L [place] # (Auto) Eos # (Auto) Abs Immat Gran (auto) 0.04 H Absolute Neuts (auto) 10.6 H Absolute Nucleated RBC Neutrophils % (Manual) Band Neutrophils % Lymphocytes % (Manual) Abs Neuts (Manual) Monocytes # (Manual) PT INR ABG pCO2 ABG pO2 ABG HCO3 VBG pH Sodium Potassium Chloride 109 H Carbon Dioxide Anion Gap 8 L BUN Creatinine Random Glucose Fasting Glucose Lactic Acid Calcium 6.8 L D Phosphorus Ferritin AST ALT Lactate Dehydrogenase Total Creatine Kinase C-Reactive Protein Total Protein Albumin Urine Protein Urine Blood Ur Leukocyte Esterase Urine RBC Vancomycin Trough < 3.0 L 09/24/20 09/24/20 09/25/20 05:20 12:30 05:20 WBC 13.6 H RBC 2.92 L Hgb 8.9 L Hct 26.7 L Plt Count 153 L Immature Gran % (Auto) 0.5 H Neut % (Auto) 93.4 H Lymph % (Auto) 1.9 L [place] % (Auto) Lymph # (Auto) 0.3 L [place] # (Auto) Eos # (Auto) Abs Immat Gran (auto) 0.07 H Absolute Neuts (auto) 12.7 H Absolute Nucleated RBC Neutrophils % (Manual) Band Neutrophils % Lymphocytes % (Manual) Abs Neuts (Manual) Monocytes # (Manual) PT INR ABG pCO2 ABG pO2 ABG HCO3 VBG pH Sodium Potassium 3.1 L D Chloride 111 H Carbon Dioxide Anion Gap 10 L BUN Creatinine Random Glucose 136 H D Fasting Glucose Lactic Acid Calcium 6.6 L Phosphorus 1.8 L Ferritin AST ALT Lactate Dehydrogenase 742 H Total Creatine Kinase 517 H C-Reactive Protein 28.94 H Total Protein Albumin Urine Protein Urine Blood Ur Leukocyte Esterase Urine RBC Vancomycin Trough 5.3 L 09/25/20 09/25/20 09/26/20 05:20 05:20 01:01 WBC RBC Hgb Hct Plt Count Immature Gran % (Auto) Neut % (Auto) Lymph % (Auto) [place] % (Auto) Lymph # (Auto) [place] # (Auto) Eos # (Auto) Abs Immat Gran (auto) Absolute Neuts (auto) Absolute Nucleated RBC Neutrophils % (Manual) Band Neutrophils % Lymphocytes % (Manual) Abs Neuts (Manual) Monocytes # (Manual) PT INR ABG pCO2 ABG pO2 ABG HCO3 VBG pH 7.47 H Sodium Potassium 3.2 L Chloride 112 H Carbon Dioxide Anion Gap 8 L BUN Creatinine Random Glucose 211 H D Fasting Glucose Lactic Acid Calcium 7.0 L D Phosphorus 1.3 L Ferritin 608 H AST ALT Lactate Dehydrogenase 361 H Total Creatine Kinase 831 H D C-Reactive Protein Total Protein Albumin Urine Protein Urine Blood Ur Leukocyte Esterase Urine RBC Vancomycin Trough 8.9 L 09/26/20 09/26/20 09/26/20 04:50 04:50 10:15 WBC 20.5 H RBC 3.06 L Hgb 9.5 L Hct 28.4 L Plt Count Immature Gran % (Auto) 1.5 H Neut % (Auto) 92.1 H Lymph % (Auto) 2.6 L [place] % (Auto) Lymph # (Auto) 0.5 L [place] # (Auto) Eos # (Auto) Abs Immat Gran (auto) 0.30 H Absolute Neuts (auto) 18.9 H Absolute Nucleated RBC Neutrophils % (Manual) Band Neutrophils % Lymphocytes % (Manual) Abs Neuts (Manual) Monocytes # (Manual) PT INR ABG pCO2 29 L ABG pO2 > 450 H ABG HCO3 19 L VBG pH Sodium Potassium Chloride 112 H Carbon Dioxide 20 L Anion Gap BUN Creatinine Random Glucose 125 H D Fasting Glucose Lactic Acid Calcium 6.6 L Phosphorus Ferritin AST ALT Lactate Dehydrogenase Total Creatine Kinase C-Reactive Protein Total Protein Albumin Urine Protein Urine Blood Ur Leukocyte Esterase Urine RBC Vancomycin Trough 09/27/20 09/27/20 09/27/20 05:27 05:27 17:54 WBC 11.5 H RBC 2.92 L Hgb 9.0 L Hct 27.3 L Plt Count Immature Gran % (Auto) 1.2 H Neut % (Auto) 88.6 H Lymph % (Auto) 3.6 L [place] % (Auto) Lymph # (Auto) 0.4 L [place] # (Auto) Eos # (Auto) Abs Immat Gran (auto) 0.14 H Absolute Neuts (auto) 10.2 H Absolute Nucleated RBC Neutrophils % (Manual) Band Neutrophils % Lymphocytes % (Manual) Abs Neuts (Manual) Monocytes # (Manual) PT INR ABG pCO2 ABG pO2 ABG HCO3 VBG pH Sodium Potassium Chloride Carbon Dioxide 18 L Anion Gap 10 L BUN Creatinine 0.47 L Random Glucose 132 H 120 H Fasting Glucose Lactic Acid Calcium 6.7 L 7.8 L D Phosphorus 2.3 L Ferritin AST ALT Lactate Dehydrogenase Total Creatine Kinase C-Reactive Protein Total Protein Albumin Urine Protein Urine Blood Ur Leukocyte Esterase Urine RBC Vancomycin Trough 09/28/20 09/28/20 09/29/20 05:27 05:27 05:25 WBC 15.1 H 17.2 H RBC 2.57 L 2.72 L Hgb 8.0 L 8.3 L Hct 24.3 L 25.7 L Plt Count 159 L Immature Gran % (Auto) 1.1 H 1.0 H Neut % (Auto) 83.3 H 81.6 H Lymph % (Auto) 7.4 L 11.9 L [place] % (Auto) Lymph # (Auto) 1.1 L [place] # (Auto) Eos # (Auto) Abs Immat Gran (auto) 0.17 H 0.17 H Absolute Neuts (auto) 12.6 H 14.0 H Absolute Nucleated RBC 0.020 H Neutrophils % (Manual) Band Neutrophils % Lymphocytes % (Manual) Abs Neuts (Manual) Monocytes # (Manual) PT INR ABG pCO2 ABG pO2 ABG HCO3 VBG pH Sodium Potassium Chloride Carbon Dioxide 32 H Anion Gap 10 L BUN 17 H Creatinine Random Glucose Fasting Glucose Lactic Acid Calcium 8.3 L D Phosphorus 2.2 L Ferritin AST 38 H ALT 171 H Lactate Dehydrogenase Total Creatine Kinase C-Reactive Protein Total Protein 5.6 L Albumin Urine Protein Urine Blood Ur Leukocyte Esterase Urine RBC Vancomycin Trough 09/29/20 09/30/20 09/30/20 05:25 06:10 06:10 WBC 13.8 H RBC 2.94 L Hgb 9.0 L Hct 27.4 L Plt Count Immature Gran % (Auto) 0.7 H Neut % (Auto) 79.6 H Lymph % (Auto) 10.7 L [place] % (Auto) Lymph # (Auto) [place] # (Auto) Eos # (Auto) Abs Immat Gran (auto) 0.10 H Absolute Neuts (auto) 11.0 H Absolute Nucleated RBC Neutrophils % (Manual) Band Neutrophils % Lymphocytes % (Manual) Abs Neuts (Manual) Monocytes # (Manual) PT INR ABG pCO2 ABG pO2 ABG HCO3 VBG pH Sodium Potassium Chloride Carbon Dioxide 30 H Anion Gap 10 L BUN 19 H Creatinine Random Glucose 119 H D Fasting Glucose Lactic Acid Calcium 7.7 L D 7.7 L Phosphorus Ferritin AST ALT Lactate Dehydrogenase Total Creatine Kinase C-Reactive Protein Total Protein Albumin 3.2 L 3.0 L Urine Protein Urine Blood Ur Leukocyte Esterase Urine RBC Vancomycin Trough 10/01/20 10/01/20 10/02/20 05:54 05:54 05:19 WBC 19.5 H 18.2 H RBC 2.83 L 2.87 L Hgb 8.6 L 8.7 L Hct 27.2 L 27.8 L Plt Count Immature Gran % (Auto) 0.7 H Neut % (Auto) 84.8 H 83.9 H Lymph % (Auto) 6.3 L 4.5 L [place] % (Auto) Lymph # (Auto) 0.8 L [place] # (Auto) 1.5 H Eos # (Auto) 0.5 H Abs Immat Gran (auto) 0.14 H 0.08 H Absolute Neuts (auto) 16.5 H 15.2 H Absolute Nucleated RBC Neutrophils % (Manual) Band Neutrophils % Lymphocytes % (Manual) Abs Neuts (Manual) Monocytes # (Manual) PT INR ABG pCO2 ABG pO2 ABG HCO3 VBG pH Sodium Potassium Chloride Carbon Dioxide 30 H Anion Gap 10 L BUN Creatinine Random Glucose Fasting Glucose Lactic Acid Calcium 7.4 L Phosphorus Ferritin AST ALT Lactate Dehydrogenase Total Creatine Kinase C-Reactive Protein Total Protein Albumin 2.8 L Urine Protein Urine Blood Ur Leukocyte Esterase Urine RBC Vancomycin Trough 10/02/20 10/03/20 10/03/20 05:19 05:17 05:17 WBC 17.4 H RBC 2.81 L Hgb 8.4 L Hct 27.0 L Plt Count Immature Gran % (Auto) 0.6 H Neut % (Auto) 81.0 H Lymph % (Auto) 7.0 L [place] % (Auto) Lymph # (Auto) [place] # (Auto) 1.7 H Eos # (Auto) Abs Immat Gran (auto) 0.10 H Absolute Neuts (auto) 14.1 H Absolute Nucleated RBC Neutrophils % (Manual) Band Neutrophils % Lymphocytes % (Manual) Abs Neuts (Manual) Monocytes # (Manual) PT INR ABG pCO2 ABG pO2 ABG HCO3 VBG pH Sodium Potassium Chloride Carbon Dioxide Anion Gap 11 L BUN Creatinine 0.49 L 0.49 L Random Glucose 56 L* Fasting Glucose Lactic Acid Calcium 7.1 L 7.1 L Phosphorus 2.4 L 2.0 L Ferritin AST ALT Lactate Dehydrogenase Total Creatine Kinase C-Reactive Protein Total Protein Albumin 2.7 L 2.6 L Urine Protein Urine Blood Ur Leukocyte Esterase Urine RBC Vancomycin Trough 10/04/20 10/04/20 10/05/20 05:34 05:34 05:42 WBC RBC 2.48 L 2.51 L Hgb 7.6 L 7.5 L Hct 23.4 L 23.3 L Plt Count Immature Gran % (Auto) 0.5 H 1.0 H Neut % (Auto) 77.8 H Lymph % (Auto) 8.5 L 14.6 L [place] % (Auto) 17.5 H Lymph # (Auto) 0.7 L 1.0 L [place] # (Auto) Eos # (Auto) Abs Immat Gran (auto) 0.04 H 0.07 H Absolute Neuts (auto) Absolute Nucleated RBC Neutrophils % (Manual) Band Neutrophils % Lymphocytes % (Manual) Abs Neuts (Manual) Monocytes # (Manual) PT INR ABG pCO2 ABG pO2 ABG HCO3 VBG pH Sodium Potassium Chloride Carbon Dioxide Anion Gap 11 L BUN 4 L D Creatinine Random Glucose Fasting Glucose Lactic Acid Calcium 7.9 L D Phosphorus 2.5 L Ferritin AST ALT Lactate Dehydrogenase Total Creatine Kinase C-Reactive Protein Total Protein Albumin Urine Protein Urine Blood Ur Leukocyte Esterase Urine RBC Vancomycin Trough 10/05/20 10/05/20 10/05/20 05:42 05:42 16:40 WBC RBC Hgb Hct Plt Count Immature Gran % (Auto) Neut % (Auto) Lymph % (Auto) [place] % (Auto) Lymph # (Auto) [place] # (Auto) Eos # (Auto) Abs Immat Gran (auto) Absolute Neuts (auto) Absolute Nucleated RBC Neutrophils % (Manual) Band Neutrophils % Lymphocytes % (Manual) Abs Neuts (Manual) Monocytes # (Manual) PT 13.7 H INR 1.2 H ABG pCO2 ABG pO2 ABG HCO3 VBG pH 7.45 H Sodium Potassium 2.9 L Chloride 110 H Carbon Dioxide Anion Gap 11 L BUN 3 L Creatinine Random Glucose Fasting Glucose Lactic Acid Calcium 7.7 L Phosphorus Ferritin AST ALT Lactate Dehydrogenase Total Creatine Kinase C-Reactive Protein Total Protein Albumin Urine Protein Urine Blood Ur Leukocyte Esterase Urine RBC Vancomycin Trough 10/06/20 10/06/20 10/07/20 05:59 05:59 06:06 WBC RBC 2.90 L 2.83 L Hgb 8.7 L 8.4 L Hct 26.9 L 26.3 L Plt Count Immature Gran % (Auto) 1.6 H 1.2 H Neut % (Auto) 78.6 H Lymph % (Auto) 15.6 L 12.8 L [place] % (Auto) 15.7 H Lymph # (Auto) [place] # (Auto) Eos # (Auto) Abs Immat Gran (auto) 0.12 H 0.13 H Absolute Neuts (auto) Absolute Nucleated RBC Neutrophils % (Manual) Band Neutrophils % Lymphocytes % (Manual) Abs Neuts (Manual) Monocytes # (Manual) PT INR ABG pCO2 ABG pO2 ABG HCO3 VBG pH Sodium Potassium Chloride Carbon Dioxide Anion Gap BUN 2 L Creatinine 0.49 L Random Glucose Fasting Glucose 109 H Lactic Acid Calcium 8.0 L Phosphorus Ferritin AST ALT Lactate Dehydrogenase Total Creatine Kinase C-Reactive Protein Total Protein Albumin Urine Protein Urine Blood Ur Leukocyte Esterase Urine RBC Vancomycin Trough 10/07/20 10/08/20 10/08/20 06:06 05:15 05:15 WBC 11.2 H RBC 2.84 L Hgb 8.5 L Hct 26.6 L Plt Count Immature Gran % (Auto) 1.2 H Neut % (Auto) 74.7 H Lymph % (Auto) 12.5 L [place] % (Auto) Lymph # (Auto) [place] # (Auto) Eos # (Auto) Abs Immat Gran (auto) 0.13 H Absolute Neuts (auto) 8.4 H Absolute Nucleated RBC Neutrophils % (Manual) Band Neutrophils % Lymphocytes % (Manual) Abs Neuts (Manual) Monocytes # (Manual) PT INR ABG pCO2 ABG pO2 ABG HCO3 VBG pH Sodium Potassium Chloride Carbon Dioxide Anion Gap 11 L BUN 6 L D 6 L Creatinine 0.49 L Random Glucose Fasting Glucose Lactic Acid Calcium 8.2 L 8.1 L Phosphorus Ferritin AST ALT Lactate Dehydrogenase Total Creatine Kinase C-Reactive Protein Total Protein 5.3 L 5.7 L Albumin 3.2 L 3.3 L Urine Protein Urine Blood Ur Leukocyte Esterase Urine RBC Vancomycin Trough 10/08/20 10/09/20 10/09/20 05:15 05:45 05:45 WBC 11.5 H RBC 2.61 L Hgb 7.8 L Hct 24.5 L Plt Count 478 H Immature Gran % (Auto) 1.2 H Neut % (Auto) Lymph % (Auto) 16.8 L [place] % (Auto) 11.6 H Lymph # (Auto) [place] # (Auto) 1.3 H Eos # (Auto) Abs Immat Gran (auto) 0.14 H Absolute Neuts (auto) Absolute Nucleated RBC Neutrophils % (Manual) Band Neutrophils % Lymphocytes % (Manual) Abs Neuts (Manual) Monocytes # (Manual) PT INR ABG pCO2 ABG pO2 ABG HCO3 VBG pH 7.47 H Sodium Potassium Chloride Carbon Dioxide Anion Gap BUN 5 L Creatinine Random Glucose Fasting Glucose Lactic Acid Calcium 7.9 L Phosphorus Ferritin AST ALT Lactate Dehydrogenase Total Creatine Kinase C-Reactive Protein Total Protein 5.5 L Albumin 3.2 L Urine Protein Urine Blood Ur Leukocyte Esterase Urine RBC Vancomycin Trough 10/09/20 10/14/20 10/14/20 05:45 17:02 18:21 WBC 18.9 H RBC 3.34 L D Hgb 10.2 L D Hct 30.6 L D Plt Count 767 H D Immature Gran % (Auto) 1.3 H Neut % (Auto) 80.1 H Lymph % (Auto) 6.9 L [place] % (Auto) Lymph # (Auto) [place] # (Auto) 2.0 H Eos # (Auto) Abs Immat Gran (auto) 0.25 H Absolute Neuts (auto) 15.1 H Absolute Nucleated RBC Neutrophils % (Manual) Band Neutrophils % Lymphocytes % (Manual) Abs Neuts (Manual) Monocytes # (Manual) PT INR ABG pCO2 ABG pO2 ABG HCO3 VBG pH 7.48 H Sodium Potassium Chloride Carbon Dioxide Anion Gap BUN Creatinine Random Glucose Fasting Glucose Lactic Acid Calcium Phosphorus Ferritin AST ALT Lactate Dehydrogenase Total Creatine Kinase C-Reactive Protein Total Protein Albumin Urine Protein 2+ H Urine Blood 3+ H Ur Leukocyte Esterase Urine RBC 30-49 H Vancomycin Trough 10/15/20 10/15/20 10/15/20 01:01 01:01 06:01 WBC 19.4 H 19.4 H RBC 3.58 L 3.39 L Hgb 10.8 L 9.9 L Hct 33.1 L 31.4 L Plt Count 842 H 719 H Immature Gran % (Auto) 1.5 H 1.4 H Neut % (Auto) 77.0 H Lymph % (Auto) 9.3 L 10.3 L [place] % (Auto) 11.5 H 15.7 H Lymph # (Auto) [place] # (Auto) 2.2 H 3.1 H Eos # (Auto) Abs Immat Gran (auto) 0.30 H 0.28 H Absolute Neuts (auto) 14.9 H 13.9 H Absolute Nucleated RBC Neutrophils % (Manual) Band Neutrophils % Lymphocytes % (Manual) Abs Neuts (Manual) Monocytes # (Manual) PT INR ABG pCO2 ABG pO2 ABG HCO3 VBG pH Sodium Potassium Chloride Carbon Dioxide 20 L Anion Gap BUN 33 H D Creatinine Random Glucose 134 H D Fasting Glucose Lactic Acid Calcium Phosphorus Ferritin AST ALT Lactate Dehydrogenase Total Creatine Kinase C-Reactive Protein Total Protein Albumin Urine Protein Urine Blood Ur Leukocyte Esterase Urine RBC Vancomycin Trough 10/15/20 10/15/20 10/15/20 06:01 15:28 15:28 WBC RBC Hgb 9.8 L Hct 30.4 L Plt Count Immature Gran % (Auto) Neut % (Auto) Lymph % (Auto) [place] % (Auto) Lymph # (Auto) [place] # (Auto) Eos # (Auto) Abs Immat Gran (auto) Absolute Neuts (auto) Absolute Nucleated RBC Neutrophils % (Manual) Band Neutrophils % Lymphocytes % (Manual) Abs Neuts (Manual) Monocytes # (Manual) PT INR ABG pCO2 ABG pO2 ABG HCO3 VBG pH Sodium Potassium Chloride Carbon Dioxide 21 L Anion Gap BUN 33 H 29 H Creatinine Random Glucose 138 H Fasting Glucose Lactic Acid Calcium Phosphorus Ferritin AST ALT Lactate Dehydrogenase Total Creatine Kinase C-Reactive Protein Total Protein Albumin Urine Protein Urine Blood Ur Leukocyte Esterase Urine RBC Vancomycin Trough 10/16/20 10/16/20 10/16/20 05:56 05:56 14:18 WBC 17.9 H RBC 2.96 L Hgb 8.8 L Hct 27.8 L Plt Count 495 H D Immature Gran % (Auto) Neut % (Auto) Lymph % (Auto) [place] % (Auto) Lymph # (Auto) [place] # (Auto) Eos # (Auto) Abs Immat Gran (auto) Absolute Neuts (auto) Absolute Nucleated RBC Neutrophils % (Manual) Band Neutrophils % Lymphocytes % (Manual) Abs Neuts (Manual) Monocytes # (Manual) PT INR ABG pCO2 ABG pO2 ABG HCO3 VBG pH Sodium Potassium Chloride 109 H Carbon Dioxide 21 L Anion Gap BUN 23 H Creatinine Random Glucose 118 H Fasting Glucose Lactic Acid Calcium 8.3 L Phosphorus Ferritin AST ALT Lactate Dehydrogenase Total Creatine Kinase C-Reactive Protein Total Protein Albumin Urine Protein Urine Blood Ur Leukocyte Esterase Urine RBC Vancomycin Trough 7.3 L 10/16/20 10/17/20 10/17/20 23:17 06:28 06:28 WBC 15.1 H RBC 2.97 L Hgb 8.8 L Hct 27.6 L Plt Count 440 H Immature Gran % (Auto) Neut % (Auto) Lymph % (Auto) [place] % (Auto) Lymph # (Auto) [place] # (Auto) Eos # (Auto) Abs Immat Gran (auto) Absolute Neuts (auto) Absolute Nucleated RBC Neutrophils % (Manual) Band Neutrophils % Lymphocytes % (Manual) Abs Neuts (Manual) Monocytes # (Manual) PT INR ABG pCO2 ABG pO2 ABG HCO3 VBG pH Sodium 134 L Potassium Chloride Carbon Dioxide Anion Gap BUN Creatinine 0.48 L Random Glucose Fasting Glucose Lactic Acid Calcium 8.0 L Phosphorus Ferritin AST ALT Lactate Dehydrogenase Total Creatine Kinase C-Reactive Protein Total Protein Albumin Urine Protein 1+ H Urine Blood 2+ H Ur Leukocyte Esterase Urine RBC 30-49 H Vancomycin Trough 10/18/20 10/18/20 10/19/20 05:49 05:49 09:45 WBC 17.5 H 20.9 H RBC 3.28 L 3.29 L Hgb 9.9 L 9.7 L Hct 30.9 L 30.8 L Plt Count 433 H 578 H D Immature Gran % (Auto) 1.6 H Neut % (Auto) 75.2 H Lymph % (Auto) 8.7 L [place] % (Auto) 11.2 H Lymph # (Auto) [place] # (Auto) 2.0 H Eos # (Auto) 0.5 H Abs Immat Gran (auto) 0.28 H Absolute Neuts (auto) 13.1 H Absolute Nucleated RBC Neutrophils % (Manual) Band Neutrophils % Lymphocytes % (Manual) Abs Neuts (Manual) Monocytes # (Manual) PT INR ABG pCO2 ABG pO2 ABG HCO3 VBG pH Sodium Potassium 5.3 H D Chloride Carbon Dioxide 21 L Anion Gap BUN Creatinine 0.47 L Random Glucose Fasting Glucose Lactic Acid Calcium Phosphorus Ferritin AST ALT Lactate Dehydrogenase Total Creatine Kinase C-Reactive Protein Total Protein Albumin Urine Protein Urine Blood Ur Leukocyte Esterase Urine RBC Vancomycin Trough 10/19/20 10/20/20 10/21/20 09:45 07:42 12:18 WBC 22.1 H 24.1 H RBC 3.38 L 3.28 L Hgb 9.9 L 9.7 L Hct 31.7 L 30.6 L Plt Count 605 H 639 H Immature Gran % (Auto) Neut % (Auto) Lymph % (Auto) [place] % (Auto) Lymph # (Auto) [place] # (Auto) Eos # (Auto) Abs Immat Gran (auto) Absolute Neuts (auto) Absolute Nucleated RBC Neutrophils % (Manual) Band Neutrophils % Lymphocytes % (Manual) Abs Neuts (Manual) Monocytes # (Manual) PT INR ABG pCO2 ABG pO2 ABG HCO3 VBG pH Sodium 133 L Potassium Chloride Carbon Dioxide Anion Gap BUN Creatinine Random Glucose 127 H Fasting Glucose Lactic Acid Calcium Phosphorus Ferritin AST ALT Lactate Dehydrogenase Total Creatine Kinase C-Reactive Protein Total Protein Albumin Urine Protein Urine Blood Ur Leukocyte Esterase Urine RBC Vancomycin Trough 10/22/20 10/23/20 10/24/20 09:06 08:24 11:25 WBC 24.3 H 21.4 H 23.7 H RBC 3.39 L 3.41 L 3.42 L Hgb 10.0 L 9.9 L 10.0 L Hct 31.4 L 31.5 L 31.8 L Plt Count 686 H 683 H 747 H Immature Gran % (Auto) Neut % (Auto) Lymph % (Auto) [place] % (Auto) Lymph # (Auto) [place] # (Auto) Eos # (Auto) Abs Immat Gran (auto) Absolute Neuts (auto) Absolute Nucleated RBC Neutrophils % (Manual) Band Neutrophils % Lymphocytes % (Manual) Abs Neuts (Manual) Monocytes # (Manual) PT INR ABG pCO2 ABG pO2 ABG HCO3 VBG pH Sodium Potassium Chloride Carbon Dioxide Anion Gap BUN Creatinine Random Glucose Fasting Glucose Lactic Acid Calcium Phosphorus Ferritin AST ALT Lactate Dehydrogenase Total Creatine Kinase C-Reactive Protein Total Protein Albumin Urine Protein Urine Blood Ur Leukocyte Esterase Urine RBC Vancomycin Trough 10/24/20 10/25/20 10/25/20 11:25 04:37 04:37 WBC 15.0 H RBC 3.29 L Hgb 9.6 L Hct 30.8 L Plt Count 591 H Immature Gran % (Auto) Neut % (Auto) Lymph % (Auto) [place] % (Auto) Lymph # (Auto) [place] # (Auto) Eos # (Auto) Abs Immat Gran (auto) Absolute Neuts (auto) Absolute Nucleated RBC Neutrophils % (Manual) Band Neutrophils % Lymphocytes % (Manual) Abs Neuts (Manual) Monocytes # (Manual) PT INR ABG pCO2 ABG pO2 ABG HCO3 VBG pH Sodium Potassium Chloride Carbon Dioxide Anion Gap BUN 26 H D 28 H Creatinine Random Glucose Fasting Glucose Lactic Acid Calcium Phosphorus Ferritin AST ALT Lactate Dehydrogenase Total Creatine Kinase C-Reactive Protein Total Protein Albumin Urine Protein Urine Blood Ur Leukocyte Esterase Urine RBC Vancomycin Trough 10/26/20 10/26/20 10/29/20 06:44 06:44 11:37 WBC 14.1 H RBC 3.40 L Hgb 9.9 L Hct 31.7 L Plt Count 547 H Immature Gran % (Auto) Neut % (Auto) Lymph % (Auto) [place] % (Auto) Lymph # (Auto) [place] # (Auto) Eos # (Auto) Abs Immat Gran (auto) Absolute Neuts (auto) Absolute Nucleated RBC Neutrophils % (Manual) Band Neutrophils % Lymphocytes % (Manual) Abs Neuts (Manual) Monocytes # (Manual) PT INR ABG pCO2 ABG pO2 ABG HCO3 VBG pH Sodium Potassium Chloride Carbon Dioxide 19 L Anion Gap BUN 20 H 30 H Creatinine Random Glucose Fasting Glucose Lactic Acid Calcium Phosphorus Ferritin AST ALT Lactate Dehydrogenase Total Creatine Kinase C-Reactive Protein Total Protein Albumin Urine Protein Urine Blood Ur Leukocyte Esterase Urine RBC Vancomycin Trough 10/29/20 10/30/20 10/30/20 13:37 05:55 05:55 WBC 53.0 H* 29.3 H RBC 3.39 L 3.30 L Hgb 10.2 L 9.7 L Hct 32.2 L 31.3 L Plt Count 416 H Immature Gran % (Auto) Neut % (Auto) Lymph % (Auto) [place] % (Auto) Lymph # (Auto) [place] # (Auto) Eos # (Auto) Abs Immat Gran (auto) Absolute Neuts (auto) Absolute Nucleated RBC Neutrophils % (Manual) 74 H Band Neutrophils % 12 H Lymphocytes % (Manual) 5 L Abs Neuts (Manual) 45.6 H Monocytes # (Manual) 3.7 H PT INR ABG pCO2 ABG pO2 ABG HCO3 VBG pH Sodium Potassium Chloride Carbon Dioxide Anion Gap BUN 30 H Creatinine Random Glucose Fasting Glucose Lactic Acid Calcium Phosphorus Ferritin AST ALT Lactate Dehydrogenase Total Creatine Kinase C-Reactive Protein Total Protein Albumin Urine Protein Urine Blood Ur Leukocyte Esterase Urine RBC Vancomycin Trough 10/30/20 10/30/20 10/31/20 05:55 21:16 05:48 WBC 16.0 H RBC 3.08 L Hgb 9.2 L Hct 29.1 L Plt Count Immature Gran % (Auto) Neut % (Auto) Lymph % (Auto) [place] % (Auto) Lymph # (Auto) [place] # (Auto) Eos # (Auto) Abs Immat Gran (auto) Absolute Neuts (auto) Absolute Nucleated RBC Neutrophils % (Manual) Band Neutrophils % Lymphocytes % (Manual) Abs Neuts (Manual) Monocytes # (Manual) PT INR ABG pCO2 ABG pO2 ABG HCO3 VBG pH Sodium Potassium Chloride Carbon Dioxide Anion Gap BUN Creatinine Random Glucose Fasting Glucose Lactic Acid Calcium Phosphorus Ferritin AST ALT Lactate Dehydrogenase Total Creatine Kinase C-Reactive Protein Total Protein Albumin 3.3 L Urine Protein Urine Blood Ur Leukocyte Esterase Urine RBC Vancomycin Trough 9.3 L 10/31/20 05:48 WBC RBC Hgb Hct Plt Count Immature Gran % (Auto) Neut % (Auto) Lymph % (Auto) [place] % (Auto) Lymph # (Auto) [place] # (Auto) Eos # (Auto) Abs Immat Gran (auto) Absolute Neuts (auto) Absolute Nucleated RBC Neutrophils % (Manual) Band Neutrophils % Lymphocytes % (Manual) Abs Neuts (Manual) Monocytes # (Manual) PT INR ABG pCO2 ABG pO2 ABG HCO3 VBG pH Sodium Potassium Chloride Carbon Dioxide Anion Gap BUN 26 H Creatinine Random Glucose Fasting Glucose Lactic Acid Calcium 8.2 L Phosphorus Ferritin AST ALT Lactate Dehydrogenase Total Creatine Kinase C-Reactive Protein Total Protein Albumin Urine Protein Urine Blood Ur Leukocyte Esterase Urine RBC Vancomycin Trough Microbiology: Microbiology 10/29/20 22:45 Neck Gram Stain - Final 10/29/20 22:45 Neck Routine Culture - Final Methicillin Res Staph Aureus 10/29/20 08:25 Blood - Venous Blood Culture - Preliminary No growth after 48 hours. 10/29/20 08:25 Blood - Venous Blood Culture - Preliminary No growth after 48 hours. 10/19/20 09:45 Blood - Venous Blood Culture - Final No growth after 5 days. 10/19/20 09:45 Blood - Venous Blood Culture - Final No growth after 5 days. 10/15/20 01:05 Blood - Venous Blood Culture - Final No growth after 5 days. 10/15/20 01:01 Blood - Venous Blood Culture - Final No growth after 5 days. 10/14/20 18:21 Urine [place] Urine Culture - Final No growth. 10/04/20 21:00 Blood - Central Line Blood Culture - Final No growth after 5 days. 10/04/20 20:53 Blood - Central Line Blood Culture - Final No growth after 5 days. 10/04/20 06:56 Sputum - Suctioned Gram Stain - Final 10/04/20 06:56 Sputum - Suctioned Sputum Culture - Final Enterobacter cloacae complex 10/04/20 06:56 Urine [place] Urine Culture - Final No growth. 09/26/20 15:00 Sputum - Suctioned Gram Stain - Final 09/26/20 15:00 Sputum - Suctioned Sputum Culture - Final Enterobacter cloacae complex 09/22/20 21:39 Blood - Venous Blood Culture - Final No growth after 5 days. 09/22/20 21:38 Blood - Venous Blood Culture - Final No growth after 5 days. 09/22/20 22:07 Urine clean catch - Clean Catch Midstream Urine Culture - Final Escherichia coli Assessment and Plan (1) H/O tracheostomy: Status: Acute trach care Will need to switch to an uncuffed trach. (2) Tracheitis: Status: Acute Start Doxy x 21 days (3) Aspiration pneumonia: Status: Acute start Chlorhexadine mouthwash
[2020-11-01] MEDS: LORazepam 2 MG/ML VIAL 0.5 MG IVPUSH (09:39)
[2020-11-01] MEDS: Doxycycline Hyclate 100 MG in 0.9 % Sodium Chloride 250 ML 166.67 MG IV ×2 (09:40→22:02)
[2020-11-01] MEDS: rOPINIRole HCL 0.25 MG TABLET G-TUBE ×2 (09:41→22:05)
[2020-11-01] MEDS: Nystatin Cream 15 GM TUBE 1 APPL TOPICAL ×2 (09:42→22:14)
[2020-11-01] MEDS: Chlorhexidine Gluc Oral Rinse 15 ML MOUTHWASH BUCCAL ×2 (09:42→22:05)
[2020-11-01] MEDS: Nystatin Powder 15 GM BOTTLE 1 APPL TOPICAL ×2 (09:42→22:06)
--- NOTE | 2020-11-01 11:00 | MHC.CM.PN ---
Referral to [facility] updated today.Trach placed on 10/06/2020; SNF may be an option for dc on 11/06/2020, when trach may be considered matured(for SNF, trach would need to be changed to uncuffed). Patient using cooling blanket on 10/31/20 and documented to still be having fevers and increased tachycardia. Patient has recurrent Aspiration PNA and is receiving IV Doxycycline.Patient received IV Ativan on 10/31/2020.CM will continue to follow for dc planning.
--- NOTE | 2020-11-01 13:52 | MHC.CLN ---
F/U RECOMMEND CHANGE IN TF FORMULA: JEVITY AT 40CC/HR WITH 120CC FREE WATER FLUSHES Q 6HRS TO PROVIDE 1017KCALS (29KCALS/KG), 42G PROTEIN (1.2G/KG), 1282CC TOTAL WATE RFROM FORMULA AND FLUSHES (37CC/KG) MONITOR TOLERANCE, RESIDUALS AND LYTES
--- NOTE | 2020-11-01 14:07 | MHC.CLN ---
DISCUSSED TF WITH MD TRIALING BOLUS FEEDING PRIOR TO DISCHARGE RECOMEND JEVITY AT 250CC BOLUS Q 6HRS WITH 120CC FREE WATER FLUSHES Q 6HRS PROVIDES 1060KCALS (30KCALS/KG), 44G PROTEIN (1.3G/KG), 1315CC TOTAL WATER FROM FORMULA AND FLUSHES (37.6CC/KG) MONITOR TOLERANCE, RESIDUALS AND LYTES
--- NOTE | 2020-11-01 14:13 | HO.PM.IMPN ---
Subjective Subjective Date of Service: 11/01/20 Interval History: The patient was seen and evaluated this morning Laying in bed, looks comfortable today No fever over last 24 hours, going blanket discontinued Likely tracheitis as a source of infection No reported other overnight events. Systemic review: Non verbal to communicate Physical Exam Vital Signs: Vital Signs: Last Vital Signs Temp 97.2 F 11/01/20 11:46 Pulse 91 11/01/20 11:46 Resp 20 11/01/20 11:46 BP 135/66 11/01/20 11:46 Pulse Ox 98 11/01/20 11:46 Body Mass Index 13.3 Constitutional : Alert, , not in distress Neck : Normal inspection, Supple Cardiovascular : Sinus tachycardia, RRR, S1 S2, no lower extremity edema Respiratory : tracheostomy in place with mildly surrounding his thick secretions, fair bilateral air entry, no crackles, bilateral scattered rhonchi Gastrointestinal: soft, lax, Normal bowel sounds, Non tender Skin : Warm/Dry, No rash Neurological : Alert , non-verbal, spastic looking, moving all extremities Objective Data Current Medications Generic Name Dose Route Start Last Admin Trade Name Freq PRN Reason Stop Dose Admin Acetaminophen 650 mg 09/30/20 20:05 11/01/20 08:25 Acetaminophen Oral Liquid 650 Mg/20.3 Ml Solution OG-TUBE 650 mg Q6H PRN Administration Pain and Fever Acetaminophen 650 mg 10/02/20 21:14 10/29/20 04:13 Acetaminophen Supp 650 Mg Supp.Rect [place] 650 mg Q6H PRN Administration Fever Acetaminophen 650 mg 10/29/20 11:25 11/01/20 09:05 Acetaminophen Oral Liquid 650 Mg/20.3 Ml Solution PO 11/02/20 00:01 650 mg QSHIFT ELIA Administration Bisacodyl 10 mg 09/28/20 14:02 10/02/20 10:04 Bisacodyl 10 Mg Supp.Rect [place] 10 mg DAILY PRN Administration Constipation Chlorhexidine Gluconate 15 ml 11/01/20 09:00 11/01/20 09:42 Chlorhexidine Gluc Oral Rinse 15 Ml Mouthwash BUCCAL 15 ml BID ELIA Administration Enoxaparin Sodium 40 mg 10/25/20 18:00 10/31/20 17:12 Enoxaparin Sodium 40 Mg/0.4 Ml Syringe SUBCUT 40 mg Q24H ELIA Administration Famotidine 20 mg 10/09/20 09:00 11/01/20 08:26 Famotidine 20 Mg Tablet G-TUBE 20 mg DAILY ELIA Administration Fluoxetine HCl 40 mg 10/13/20 09:00 11/01/20 08:25 Fluoxetine Hcl Oral Solution 20 Mg/5 Ml Solution G-TUBE 40 mg DAILY ELIA Administration Doxycycline Hyclate 100 mg/ 250 mls @ 166.67 mls/hr 11/01/20 08:45 11/01/20 11:50 Sodium Chloride IV Infused Q12H ELIA Infusion Lactulose 30 gm 10/08/20 16:32 Lactulose 20 Gm/30 Ml Solution G-TUBE BID PRN constipation Lorazepam 0.5 mg 10/24/20 11:15 11/01/20 09:39 Lorazepam 2 Mg/Ml Vial IVPUSH 0.5 mg Q4H PRN Administration Anxiety Lorazepam 0.5 mg 10/30/20 18:30 11/01/20 12:06 Lorazepam 0.5 Mg Tablet G-TUBE 0.5 mg Q8H ELIA Administration Metoprolol Tartrate 50 mg 10/30/20 21:00 11/01/20 08:26 Metoprolol Tartrate 50 Mg Tablet G-TUBE 50 mg BID ELIA Administration Protocol Nystatin 1 appl 10/11/20 21:00 11/01/20 09:42 Nystatin Powder 15 Gm Bottle TOPICAL 1 appl BID ELIA Administration Protocol Nystatin 1 appl 10/19/20 21:00 11/01/20 09:42 Nystatin Cream 15 Gm Tube TOPICAL 1 appl BID ELIA Administration Protocol Ondansetron HCl 4 mg 09/28/20 15:49 09/28/20 15:58 Ondansetron Hcl 4 Mg/2 Ml Vial IVPUSH 4 mg Q6H PRN Administration Nausea Pharmacy Consult 1 each 10/29/20 08:58 Consult Rx Vancomycin Dosing MISCELLANE DAILY PRN Consult order Ropinirole HCl 0.25 mg 11/01/20 09:00 11/01/20 09:41 Ropinirole Hcl 0.25 Mg Tablet G-TUBE 0.25 mg BID ELIA Administration Sodium Chloride 3 ml 09/23/20 16:00 11/01/20 08:28 0.9 % Sodium Chloride Flush 3 Ml Syringe IVFLUSH 3 ml QSHIFT ELIA Administration Valproic Acid 500 mg 10/12/20 21:00 10/31/20 21:47 Valproic Acid (As Sodium Salt) 250 Mg/5 Ml Solution G-TUBE 500 mg BEDTIME ELIA Administration Valproic Acid 250 mg 10/13/20 09:00 11/01/20 08:25 Valproic Acid (As Sodium Salt) 250 Mg/5 Ml Solution PO 250 mg DAILY ELIA Administration Labs CBC & Chem 7: 10/31/20 05:48 10/31/20 05:48 Microbiology Microbiology Results: Microbiology 10/29/20 22:45 Neck Gram Stain - Final 10/29/20 22:45 Neck Routine Culture - Final Methicillin Res Staph Aureus 10/29/20 08:25 Blood - Venous Blood Culture - Preliminary No growth after 48 hours. 10/29/20 08:25 Blood - Venous Blood Culture - Preliminary No growth after 48 hours. 10/19/20 09:45 Blood - Venous Blood Culture - Final No growth after 5 days. 10/19/20 09:45 Blood - Venous Blood Culture - Final No growth after 5 days. 10/15/20 01:05 Blood - Venous Blood Culture - Final No growth after 5 days. 10/15/20 01:01 Blood - Venous Blood Culture - Final No growth after 5 days. 10/14/20 18:21 Urine [place] Urine Culture - Final No growth. 10/04/20 21:00 Blood - Central Line Blood Culture - Final No growth after 5 days. 10/04/20 20:53 Blood - Central Line Blood Culture - Final No growth after 5 days. 10/04/20 06:56 Sputum - Suctioned Gram Stain - Final 10/04/20 06:56 Sputum - Suctioned Sputum Culture - Final Enterobacter cloacae complex 10/04/20 06:56 Urine [place] Urine Culture - Final No growth. 09/26/20 15:00 Sputum - Suctioned Gram Stain - Final 09/26/20 15:00 Sputum - Suctioned Sputum Culture - Final Enterobacter cloacae complex 09/22/20 21:39 Blood - Venous Blood Culture - Final No growth after 5 days. 09/22/20 21:38 Blood - Venous Blood Culture - Final No growth after 5 days. 09/22/20 22:07 Urine clean catch - Clean Catch Midstream Urine Culture - Final Escherichia coli Assessment and Plan (1) Acute respiratory failure: Status: Acute (2) Sepsis: Status: Acute (3) H/O tracheostomy: Status: Acute Assessment and Plan: This is a 60 yo gentleman with underlying history of developmental delay, cerebral palso, spastic quadriplegia, seizure disorder, dysphasia, wheelchair-bound, retirement resident who presented to the ED on 09/23/2020 with fever and vomiting. His course has been complicated by multiple episodes of respiratory failure and ultimately required PEG/Trach placement. He was due to transfer on 10/14/2020 but spiked a fever and discharge was cancelled. Sepsis, resolved Secondary to tracheitis No fever over last 24 hours, WBCs trending down to Wound culture growing Staph aureus Discontinue Zosyn Start doxycycline b.i.d. for total of 21 days Pulmonary input appreciated Acute resp. failure due to recurrent aspiration now with trach and peg, will need to change the trach into uncuffed continue current care Stable on 5 L of oxygen Recurrent aspiration pneumonia antibiotics discontinued 10/22/2020, completed multiple course Leukocytosis improved and trended Seizure disorder depakote 500mg/250mg E. Coli UTI completed treatment Moderate to Severe protein calorie malnutrition On G-tube tube feeds to start bolus diet Water flushes Monitor for tolerance Mood continue fluoxetine prn ativan Sinus Tachycardia multifactorial, with recent respiratory disease, anxiety Controlled Abnromal CT head Reported possible bleeding Repeated CT brain does not show any acute bleed / ischemia. DNR/DNI DVT pptx, lovenox
[2020-11-01] MEDS: Enoxaparin Sodium 40 MG/0.4 ML SYRINGE SUBCUT (18:16)
[2020-11-02] MEDS: 0.9 % Sodium Chloride Flush 3 ML SYRINGE IVFLUSH ×3 (00:03→16:38)
[2020-11-02] MEDS: Acetaminophen Oral Liquid 650 MG/20.3 ML SOLUTION PO (00:04)
[2020-11-02] MEDS: LORazepam 0.5 MG TABLET G-TUBE ×3 (03:31→18:59)
[2020-11-02 03:57] VITALS: BP 151/70; PULSE 103; RESP 20; TEMP 36.2; O2SAT 98
[2020-11-02 06:00] VITALS: BMI 13.6
[2020-11-02 08:00] VITALS: BP 121/66; PULSE 105; RESP 18; TEMP 36.2; O2SAT 97
[2020-11-02] MEDS: Doxycycline Hyclate 100 MG in 0.9 % Sodium Chloride 250 ML 166.67 MG IV (08:21)
[2020-11-02] MEDS: FLUoxetine HCl Oral Solution 20 MG/5 ML SOLUTION 40 MG G-TUBE (08:22)
[2020-11-02] MEDS: Metoprolol Tartrate 50 MG TABLET G-TUBE ×2 (08:22→20:34)
[2020-11-02] MEDS: Famotidine 20 MG TABLET G-TUBE (08:22)
[2020-11-02] MEDS: rOPINIRole HCL 0.25 MG TABLET G-TUBE ×2 (08:22→20:35)
[2020-11-02] MEDS: Nystatin Cream 15 GM TUBE 1 APPL TOPICAL ×2 (08:23→22:07)
[2020-11-02] MEDS: Nystatin Powder 15 GM BOTTLE 1 APPL TOPICAL ×2 (08:23→20:35)
--- NOTE | 2020-11-02 10:14 | PM.PNPUL ---
Subjective Subjective Date of Service: 11/02/20 Interval history: The patient was seen on exam. Tracheostomy site appears to be less inflamed. He does have a cuffed trach in place. He did start the doxycycline although it appears that they Staph aureus is resistant. However, seems to be sensitive to Bactrim. Objective Data Labs CBC & Chem 7: 10/31/20 05:48 10/31/20 05:48 Labs: Laboratory Results - last 24 hr 10/29/20 13:37 Smear Path Review SEE NOTE Microbiology Microbiology Results: Microbiology 10/29/20 22:45 Neck Gram Stain - Final 10/29/20 22:45 Neck Routine Culture - Final Methicillin Res Staph Aureus 10/29/20 08:25 Blood - Venous Blood Culture - Preliminary No growth after 48 hours. 10/29/20 08:25 Blood - Venous Blood Culture - Preliminary No growth after 48 hours. 10/19/20 09:45 Blood - Venous Blood Culture - Final No growth after 5 days. 10/19/20 09:45 Blood - Venous Blood Culture - Final No growth after 5 days. 10/15/20 01:05 Blood - Venous Blood Culture - Final No growth after 5 days. 10/15/20 01:01 Blood - Venous Blood Culture - Final No growth after 5 days. 10/14/20 18:21 Urine [place] Urine Culture - Final No growth. 10/04/20 21:00 Blood - Central Line Blood Culture - Final No growth after 5 days. 10/04/20 20:53 Blood - Central Line Blood Culture - Final No growth after 5 days. 10/04/20 06:56 Sputum - Suctioned Gram Stain - Final 10/04/20 06:56 Sputum - Suctioned Sputum Culture - Final Enterobacter cloacae complex 10/04/20 06:56 Urine [place] Urine Culture - Final No growth. 09/26/20 15:00 Sputum - Suctioned Gram Stain - Final 09/26/20 15:00 Sputum - Suctioned Sputum Culture - Final Enterobacter cloacae complex 09/22/20 21:39 Blood - Venous Blood Culture - Final No growth after 5 days. 09/22/20 21:38 Blood - Venous Blood Culture - Final No growth after 5 days. 09/22/20 22:07 Urine clean catch - Clean Catch Midstream Urine Culture - Final Escherichia coli Review of Systems Review of Systems Yes Unobtainable due to mental condition and Unobtainable due to mental status Reports other Comments: trach midline with less erythema Reports confusion Psychiatric: Reports confusion Physical Exam Vital Signs: Vital Signs: Last Vital Signs Temp 97.1 F 11/02/20 08:00 Pulse 105 H 11/02/20 08:00 Resp 18 11/02/20 08:00 BP 121/66 11/02/20 08:00 Pulse Ox 97 11/02/20 08:00 Body Mass Index 13.6 Const: General: confusion Orientation/consciousness: confusion Neck: Neck: Yes other (trach midline) Resp: Effort & Inspection: decreased respiratory effort Auscultation: diminished lung sounds Cardio: Rhythm: regular rhythm Heart sounds: S1 normal heart sound present and S2 normal heart sound present Neuro: General: confusion Extrem: General: Yes other (contracted) Assessment and Plan Assessment and plan (1) Tracheitis: Status: Acute Assessment and Plan: Would switch to bactrim to complete 14 day course (2) H/O tracheostomy: Status: Acute Assessment and Plan: trach care Downsize to uncuffed 21 days after initial insertion Ok to discharge to LTAC (3) Aspiration pneumonia: Status: Acute Assessment and Plan: Chlorhexadine Mouthwash Time Spent With Patient Time: Total time spent is greater than 50% in coordination of care (as documented) at patient's floor/unit and/or counseling patient: Time with patient: 15 - 24 minutes
--- NOTE | 2020-11-02 11:42 | MHC.CM.PN ---
Per ROUNDS discussion, Patient is medically cleared for dc to [facility]ACH, but [facility] does not have any bed availability. KING updated both DDS RN/Nadia and Guardian/Sister/Sharri. With Sharri's approval, KING has reached out to area SNFs now that trach is approaching maturity (placed on 10/06/2020). Sharri is also questioning if Patient could soon be ready for dc to his new Longterm that has a RN 28/05. Per Sharri's request, KING has asked MD to give her a call. KING will continue to follow.
[2020-11-02 12:00] VITALS: BP 111/71; PULSE 109; RESP 22; TEMP 36.3; O2SAT 98
[2020-11-02] MEDS: Linezolid 600 MG TABLET PO (14:10)
--- NOTE | 2020-11-02 15:48 | HO.PM.IMPN ---
Subjective Subjective Date of Service: 11/02/20 Interval History: Interval History: The patient was seen and evaluated this morning Laying in bed, looks comfortable today No fever over last 24 hours, going blanket discontinued Likely tracheitis as a source of infection No reported other overnight events. Systemic review: Non verbal to communicate Physical Exam Vital Signs: Vital Signs: Last Vital Signs Temp 97.4 F 11/02/20 12:00 Pulse 109 H 11/02/20 12:00 Resp 22 H 11/02/20 12:00 BP 111/71 11/02/20 12:00 Pulse Ox 98 11/02/20 12:00 Body Mass Index 13.6 Constitutional : Alert, , not in distress Neck : Normal inspection, Supple Cardiovascular : Sinus tachycardia, RRR, S1 S2, no lower extremity edema Respiratory : tracheostomy in place with mildly surrounding his thick secretions, fair bilateral air entry, no crackles, bilateral scattered rhonchi Gastrointestinal: soft, lax, Normal bowel sounds, Non tender Skin : Warm/Dry, No rash Neurological : Alert , non-verbal, spastic looking, moving all extremities Objective Data Current Medications Generic Name Dose Route Start Last Admin Trade Name Freq PRN Reason Stop Dose Admin Acetaminophen 650 mg 09/30/20 20:05 11/01/20 08:25 Acetaminophen Oral Liquid 650 Mg/20.3 Ml Solution OG-TUBE 650 mg Q6H PRN Administration Pain and Fever Acetaminophen 650 mg 10/02/20 21:14 10/29/20 04:13 Acetaminophen Supp 650 Mg Supp.Rect [place] 650 mg Q6H PRN Administration Fever Bisacodyl 10 mg 09/28/20 14:02 10/02/20 10:04 Bisacodyl 10 Mg Supp.Rect MS 10 mg DAILY PRN Administration Constipation Chlorhexidine Gluconate 15 ml 11/01/20 09:00 11/02/20 08:23 Chlorhexidine Gluc Oral Rinse 15 Ml Mouthwash BUCCAL Not Given BID ELIA Enoxaparin Sodium 40 mg 10/25/20 18:00 11/01/20 18:16 Enoxaparin Sodium 40 Mg/0.4 Ml Syringe SUBCUT 40 mg Q24H ELIA Administration Famotidine 20 mg 10/09/20 09:00 11/02/20 08:22 Famotidine 20 Mg Tablet G-TUBE 20 mg DAILY ELIA Administration Lactulose 30 gm 10/08/20 16:32 Lactulose 20 Gm/30 Ml Solution G-TUBE BID PRN constipation Linezolid 600 mg 11/02/20 12:00 11/02/20 14:10 Linezolid 600 Mg Tablet PO 600 mg Q12H ELIA Administration Lorazepam 0.5 mg 10/30/20 18:30 11/02/20 08:25 Lorazepam 0.5 Mg Tablet G-TUBE 0.5 mg Q8H ELIA Administration Metoprolol Tartrate 50 mg 10/30/20 21:00 11/02/20 08:22 Metoprolol Tartrate 50 Mg Tablet G-TUBE 50 mg BID ELIA Administration Protocol Nystatin 1 appl 10/11/20 21:00 11/02/20 08:23 Nystatin Powder 15 Gm Bottle TOPICAL 1 appl BID ELIA Administration Protocol Nystatin 1 appl 10/19/20 21:00 11/02/20 08:23 Nystatin Cream 15 Gm Tube TOPICAL 1 appl BID ELIA Administration Protocol Ondansetron HCl 4 mg 09/28/20 15:49 09/28/20 15:58 Ondansetron Hcl 4 Mg/2 Ml Vial IVPUSH 4 mg Q6H PRN Administration Nausea Pharmacy Consult 1 each 10/29/20 08:58 Consult Rx Vancomycin Dosing MISCELLANE DAILY PRN Consult order Ropinirole HCl 0.25 mg 11/01/20 09:00 11/02/20 08:22 Ropinirole Hcl 0.25 Mg Tablet G-TUBE 0.25 mg BID ELIA Administration Sodium Chloride 3 ml 09/23/20 16:00 11/02/20 08:22 0.9 % Sodium Chloride Flush 3 Ml Syringe IVFLUSH 3 ml QSHIFT ELIA Administration Valproic Acid 500 mg 10/12/20 21:00 11/01/20 22:06 Valproic Acid (As Sodium Salt) 250 Mg/5 Ml Solution G-TUBE 500 mg BEDTIME ELIA Administration Valproic Acid 250 mg 10/13/20 09:00 11/02/20 08:22 Valproic Acid (As Sodium Salt) 250 Mg/5 Ml Solution PO 250 mg DAILY ELIA Administration Labs CBC & Chem 7: 10/31/20 05:48 10/31/20 05:48 Microbiology Microbiology Results: Microbiology 10/29/20 22:45 Neck Gram Stain - Final 10/29/20 22:45 Neck Routine Culture - Final Methicillin Res Staph Aureus 10/29/20 08:25 Blood - Venous Blood Culture - Preliminary No growth after 48 hours. 10/29/20 08:25 Blood - Venous Blood Culture - Preliminary No growth after 48 hours. 10/19/20 09:45 Blood - Venous Blood Culture - Final No growth after 5 days. 10/19/20 09:45 Blood - Venous Blood Culture - Final No growth after 5 days. 10/15/20 01:05 Blood - Venous Blood Culture - Final No growth after 5 days. 10/15/20 01:01 Blood - Venous Blood Culture - Final No growth after 5 days. 10/14/20 18:21 Urine [place] Urine Culture - Final No growth. 10/04/20 21:00 Blood - Central Line Blood Culture - Final No growth after 5 days. 10/04/20 20:53 Blood - Central Line Blood Culture - Final No growth after 5 days. 10/04/20 06:56 Sputum - Suctioned Gram Stain - Final 10/04/20 06:56 Sputum - Suctioned Sputum Culture - Final Enterobacter cloacae complex 10/04/20 06:56 Urine [place] Urine Culture - Final No growth. 09/26/20 15:00 Sputum - Suctioned Gram Stain - Final 09/26/20 15:00 Sputum - Suctioned Sputum Culture - Final Enterobacter cloacae complex 09/22/20 21:39 Blood - Venous Blood Culture - Final No growth after 5 days. 09/22/20 21:38 Blood - Venous Blood Culture - Final No growth after 5 days. 09/22/20 22:07 Urine clean catch - Clean Catch Midstream Urine Culture - Final Escherichia coli Assessment and Plan (1) Acute respiratory failure: Status: Acute (2) Sepsis: Status: Acute (3) H/O tracheostomy: Status: Acute (4) Tracheitis: Status: Acute (5) Cerebral palsy: Status: Acute Assessment and Plan: This is a 60 yo gentleman with underlying history of developmental delay, cerebral palso, spastic quadriplegia, seizure disorder, dysphasia, wheelchair-bound, longterm resident who presented to the ED on 09/23/2020 with fever and vomiting. His course has been complicated by multiple episodes of respiratory failure and ultimately required PEG/Trach placement. He was due to transfer on 10/14/2020 but spiked a fever and discharge was cancelled. Sepsis, resolved Secondary to tracheitis No fever over last 24 hours, WBCs trending down to Wound culture growing MRSA Discontinue doxycycline Treat with Zyvox 10 days Hold fluoxetine during the treatment time Pulmonary input appreciated Acute resp. failure due to recurrent aspiration now with trach and peg, will need to change the trach into uncuffed continue current care Stable on 5 L of oxygen Recurrent aspiration pneumonia antibiotics discontinued 10/22/2020, completed multiple course Leukocytosis improved and trended Seizure disorder depakote 500mg/250mg E. Coli UTI completed treatment Moderate to Severe protein calorie malnutrition On G-tube tube feeds to start bolus diet Water flushes Monitor for tolerance Mood continue fluoxetine prn ativan Sinus Tachycardia multifactorial, with recent respiratory disease, anxiety Controlled Abnromal CT head Reported possible bleeding Repeated CT brain does not show any acute bleed / ischemia. DNR/DNI DVT pptx, christelx
[2020-11-02 15:52] VITALS: BP 98/51; PULSE 60; RESP 19; TEMP 36.2; O2SAT 92
[2020-11-02 16:36] LABS: Glucose, Whole Blood 112 mg/dL (60-115)
[2020-11-02] MEDS: Enoxaparin Sodium 40 MG/0.4 ML SYRINGE SUBCUT (18:59)
[2020-11-02 19:16] VITALS: BP 134/67; PULSE 60; RESP 19; TEMP 36.3; O2SAT 97
[2020-11-02 20:34] VITALS: BP 134/67; PULSE 68
[2020-11-02] MEDS: Chlorhexidine Gluc Oral Rinse 15 ML MOUTHWASH BUCCAL (20:34)
[2020-11-02 21:19] LABS: COVID-19 Test Negative (Negative); IDNOW Serial# 9DD0AD1C
--- NOTE | 2020-11-02 21:43 | PM.IDPN ---
Subjective Subjective Date of Service: 11/14/20 Objective Data Labs CBC & Chem 7: 10/31/20 05:48 10/31/20 05:48 Labs: Laboratory Results - last 24 hr 11/02/20 11/02/20 16:32 20:52 POC Glucose 112 COVID-19 ([facility]) Negative COVID-19 Clin Com See Note Microbiology Microbiology Results: Microbiology 10/29/20 22:45 Neck Gram Stain - Final 10/29/20 22:45 Neck Routine Culture - Final Methicillin Res Staph Aureus 10/29/20 08:25 Blood - Venous Blood Culture - Preliminary No growth after 48 hours. 10/29/20 08:25 Blood - Venous Blood Culture - Preliminary No growth after 48 hours. 10/19/20 09:45 Blood - Venous Blood Culture - Final No growth after 5 days. 10/19/20 09:45 Blood - Venous Blood Culture - Final No growth after 5 days. 10/15/20 01:05 Blood - Venous Blood Culture - Final No growth after 5 days. 10/15/20 01:01 Blood - Venous Blood Culture - Final No growth after 5 days. 10/14/20 18:21 Urine [place] Urine Culture - Final No growth. 10/04/20 21:00 Blood - Central Line Blood Culture - Final No growth after 5 days. 10/04/20 20:53 Blood - Central Line Blood Culture - Final No growth after 5 days. 10/04/20 06:56 Sputum - Suctioned Gram Stain - Final 10/04/20 06:56 Sputum - Suctioned Sputum Culture - Final Enterobacter cloacae complex 10/04/20 06:56 Urine [place] Urine Culture - Final No growth. 09/26/20 15:00 Sputum - Suctioned Gram Stain - Final 09/26/20 15:00 Sputum - Suctioned Sputum Culture - Final Enterobacter cloacae complex 09/22/20 21:39 Blood - Venous Blood Culture - Final No growth after 5 days. 09/22/20 21:38 Blood - Venous Blood Culture - Final No growth after 5 days. 09/22/20 22:07 Urine clean catch - Clean Catch Midstream Urine Culture - Final Escherichia coli Physical Exam Vital Signs: Vital Signs: Last Vital Signs Temp 97.3 F 11/02/20 19:16 Pulse 68 11/02/20 20:34 Resp 19 11/02/20 19:16 BP 134/67 12/29/20 20:34 Pulse Ox 97 11/02/20 19:16 Body Mass Index 13.6 Const: General: cooperative HENMT: Head: Yes normal to inspection Resp: Effort & Inspection: normal respiratory effort Cardio: Rate: regular rate Rhythm: regular rhythm GI: Palpation (GI): nontender Auscultation: normal bowel sounds Skin: General skin exam: no rashes or lesions noted Assessment and Plan Assessment and plan (1) Fever of unknown origin: Problem details: Patient may have microaspiration He has diarrhea also possible Cdiff This aspiration may continue and patient may have no good solution,on antibiotics quite a bit MRSA tracheitis may be aspiration concern,resistant organism Status: Acute Assessment and Plan: Agree with linezolid 10 d probable (2) Tracheitis: Status: Acute Time Spent With Patient Time: Total time spent is greater than 50% in coordination of care (as documented) at patient's floor/unit and/or counseling patient: Time with patient: 15 - 24 minutes
[2020-11-03] VITALS (8 sets, daily range): BP systolic 97–126; BP diastolic 55–82; PULSE 80–115; RESP 17–20; TEMP 36–36.9; O2SAT 92–99; BMI 13.5
[2020-11-03] MEDS: 0.9 % Sodium Chloride Flush 3 ML SYRINGE IVFLUSH ×3 (01:03→15:24)
[2020-11-03] MEDS: Linezolid 600 MG TABLET PO ×2 (01:03→12:24)
[2020-11-03] MEDS: LORazepam 0.5 MG TABLET G-TUBE ×3 (03:05→17:30)
--- NOTE | 2020-11-03 07:18 | PC.NURSE ---
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 E. xplained pt hx and md stated to administer zyvox via gtube at this dose. Report in am to day rn to follow up for order change as md did not process with a via GT route
[2020-11-03] MEDS: Chlorhexidine Gluc Oral Rinse 15 ML MOUTHWASH BUCCAL ×2 (09:17→22:00)
[2020-11-03] MEDS: Metoprolol Tartrate 50 MG TABLET G-TUBE ×2 (09:17→22:01)
[2020-11-03] MEDS: rOPINIRole HCL 0.25 MG TABLET G-TUBE ×2 (09:18→22:01)
[2020-11-03] MEDS: Famotidine 20 MG TABLET G-TUBE (09:18)
[2020-11-03] MEDS: Nystatin Powder 15 GM BOTTLE 1 APPL TOPICAL ×2 (09:20→22:02)
[2020-11-03] MEDS: Nystatin Cream 15 GM TUBE 1 APPL TOPICAL ×2 (09:20→22:03)
--- NOTE | 2020-11-03 10:16 | MHC.CM.PN ---
CM spoke with Guardian and DDS RN/Nadia at [phone]. Per MD, trach was changed this morning to a cuffless trach. Patient's new Assisted will need time before a dc to there directly will be possible (obtain meds, equipment, transition meeting, staff training). STR is now the goal for dc and first choice is [facility], 2nd-[facility] [place], and 3rd choice-[facility] [place]. CM awaits response from SNF as to when Patient's needs can be met at that LOC. CM will continue to follow for dc planning and possible need to adjust the dc plan again.
--- NOTE | 2020-11-03 11:07 | MHC.CLN ---
F/U PT RECEIVING JEVITY AT 250CC BOLUS Q 6HRS WITH 120CC FREE WATER FLUSHES Q 6HRS PROVIDES 1060KCALS (30KCALS/KG), 44G PROTEIN (1.3G/KG), 1315CC TOTAL WATER FROM FORMULA AND FLUSHES (37.6CC/KG) NSG REPORTS GOOD TOLERANCE, LOW RESIDUALS CONTINUE TO MONITOR TOLERANCE, RESIDUALS AND LYTES FOLLOWING
--- NOTE | 2020-11-03 11:47 | MHC.CM.PN ---
STR may not be an option for dc r/t Guardianship NOT containing clause that allows Guardian to admit to a SNF (CM awaits a return call from DDS MALORIE Zuniga to confirm the question of this clause in the Guardianship). CM continues to update referral to [facility], but they have no beds at this time.
--- NOTE | 2020-11-03 13:08 | PM.PNPUL ---
Subjective Subjective Date of Service: 11/03/20 Interval history: The patient was seen and examined. His tracheostomy was downsized to a 7 DIC [place] uncuffed tracheostomy without any complications at the bedside. Overall he is without any other complaints. Objective Data Labs CBC & Chem 7: 10/31/20 05:48 10/31/20 05:48 Labs: Laboratory Results - last 24 hr 11/02/20 11/02/20 16:32 20:52 POC Glucose 112 COVID-19 ([facility]) Negative COVID-19 Clin Com See Note Microbiology Microbiology Results: Microbiology 10/29/20 08:25 Blood - Venous Blood Culture - Final No growth after 5 days. 10/29/20 08:25 Blood - Venous Blood Culture - Final No growth after 5 days. 10/29/20 22:45 Neck Gram Stain - Final 10/29/20 22:45 Neck Routine Culture - Final Methicillin Res Staph Aureus 10/19/20 09:45 Blood - Venous Blood Culture - Final No growth after 5 days. 10/19/20 09:45 Blood - Venous Blood Culture - Final No growth after 5 days. 10/15/20 01:05 Blood - Venous Blood Culture - Final No growth after 5 days. 10/15/20 01:01 Blood - Venous Blood Culture - Final No growth after 5 days. 10/14/20 18:21 Urine [place] Urine Culture - Final No growth. 10/04/20 21:00 Blood - Central Line Blood Culture - Final No growth after 5 days. 10/04/20 20:53 Blood - Central Line Blood Culture - Final No growth after 5 days. 10/04/20 06:56 Sputum - Suctioned Gram Stain - Final 10/04/20 06:56 Sputum - Suctioned Sputum Culture - Final Enterobacter cloacae complex 10/04/20 06:56 Urine [place] Urine Culture - Final No growth. 09/26/20 15:00 Sputum - Suctioned Gram Stain - Final 09/26/20 15:00 Sputum - Suctioned Sputum Culture - Final Enterobacter cloacae complex 09/22/20 21:39 Blood - Venous Blood Culture - Final No growth after 5 days. 09/22/20 21:38 Blood - Venous Blood Culture - Final No growth after 5 days. 09/22/20 22:07 Urine clean catch - Clean Catch Midstream Urine Culture - Final Escherichia coli Review of Systems Review of Systems Yes Unobtainable due to mental condition Reports confusion Psychiatric: Reports confusion Physical Exam Vital Signs: Vital Signs: Last Vital Signs Temp 97.3 F 11/03/20 11:24 Pulse 87 11/03/20 11:24 Resp 17 11/03/20 11:24 BP 126/76 11/03/20 11:24 Pulse Ox 92 11/03/20 11:24 Body Mass Index 13.5 Const: General: confusion Orientation/consciousness: confusion HENMT: Head: Yes other (Tracheostomy midline) Neck: Lymphatic: other (Tracheostomy midline) Resp: Auscultation: diminished lung sounds Cardio: Rhythm: regular rhythm Heart sounds: S1 normal heart sound present and S2 normal heart sound present Neuro: General: confusion Extrem: Other: Contracted Assessment and Plan Assessment and plan (1) Tracheitis: Problem details: MRSA, overall better Status: Acute (2) Aspiration pneumonia: Status: Acute Assessment and Plan: Continue dysphagia precautions Chlorhexidine mouthwash (3) H/O tracheostomy: Status: Acute Assessment and Plan: Downsized to a 7 DIC [place] tracheostomy on cough. Time Spent With Patient Time: Total time spent is greater than 50% in coordination of care (as documented) at patient's floor/unit and/or counseling patient: Time with patient: 25 - 35 minutes
--- NOTE | 2020-11-03 13:40 | HO.PM.IMPN ---
Subjective Subjective Date of Service: 11/03/20 Interval History: The patient was seen and evaluated this morning Laying in bed, looks comfortable today No fever over last 72 hours, going blanket discontinued Likely tracheitis as a source of infection No reported other overnight events. Systemic review: Non verbal to communicate Physical Exam Vital Signs: Vital Signs: Last Vital Signs Temp 97.3 F 11/03/20 11:24 Pulse 87 11/03/20 11:24 Resp 17 11/03/20 11:24 BP 126/76 11/03/20 11:24 Pulse Ox 92 11/03/20 11:24 Body Mass Index 13.5 Constitutional : Alert, , not in distress Neck : Normal inspection, Supple Cardiovascular : Sinus tachycardia, RRR, S1 S2, no lower extremity edema Respiratory : tracheostomy in place with mildly surrounding his thick secretions, fair bilateral air entry, no crackles, bilateral scattered rhonchi Gastrointestinal: soft, lax, Normal bowel sounds, Non tender Skin : Warm/Dry, No rash Neurological : Alert , non-verbal, spastic looking, moving all extremities Objective Data Current Medications Generic Name Dose Route Start Last Admin Trade Name Freq PRN Reason Stop Dose Admin Acetaminophen 650 mg 09/30/20 20:05 11/01/20 08:25 Acetaminophen Oral Liquid 650 Mg/20.3 Ml Solution OG-TUBE 650 mg Q6H PRN Administration Pain and Fever Acetaminophen 650 mg 10/02/20 21:14 10/29/20 04:13 Acetaminophen Supp 650 Mg Supp.Rect IA 650 mg Q6H PRN Administration Fever Bisacodyl 10 mg 09/28/20 14:02 10/02/20 10:04 Bisacodyl 10 Mg Supp.Rect IA 10 mg DAILY PRN Administration Constipation Chlorhexidine Gluconate 15 ml 11/01/20 09:00 11/03/20 09:17 Chlorhexidine Gluc Oral Rinse 15 Ml Mouthwash BUCCAL 15 ml BID ELIA Administration Enoxaparin Sodium 40 mg 10/25/20 18:00 11/02/20 18:59 Enoxaparin Sodium 40 Mg/0.4 Ml Syringe SUBCUT 40 mg Q24H ELIA Administration Famotidine 20 mg 10/09/20 09:00 11/03/20 09:18 Famotidine 20 Mg Tablet G-TUBE 20 mg DAILY ELIA Administration Lactulose 30 gm 10/08/20 16:32 Lactulose 20 Gm/30 Ml Solution G-TUBE BID PRN constipation Linezolid 600 mg 11/02/20 12:00 11/03/20 12:24 Linezolid 600 Mg Tablet PO 600 mg Q12H ELIA Administration Lorazepam 0.5 mg 10/30/20 18:30 11/03/20 09:34 Lorazepam 0.5 Mg Tablet G-TUBE 0.5 mg Q8H ELIA Administration Metoprolol Tartrate 50 mg 10/30/20 21:00 11/03/20 09:17 Metoprolol Tartrate 50 Mg Tablet G-TUBE 50 mg BID ELIA Administration Protocol Nystatin 1 appl 10/11/20 21:00 11/03/20 09:20 Nystatin Powder 15 Gm Bottle TOPICAL 1 appl BID ELIA Administration Protocol Nystatin 1 appl 10/19/20 21:00 11/03/20 09:20 Nystatin Cream 15 Gm Tube TOPICAL 1 appl BID ELIA Administration Protocol Ondansetron HCl 4 mg 09/28/20 15:49 09/28/20 15:58 Ondansetron Hcl 4 Mg/2 Ml Vial IVPUSH 4 mg Q6H PRN Administration Nausea Pharmacy Consult 1 each 10/29/20 08:58 Consult Rx Vancomycin Dosing MISCELLANE DAILY PRN Consult order Ropinirole HCl 0.25 mg 11/01/20 09:00 11/03/20 09:18 Ropinirole Hcl 0.25 Mg Tablet G-TUBE 0.25 mg BID ELIA Administration Sodium Chloride 3 ml 09/23/20 16:00 11/03/20 09:17 0.9 % Sodium Chloride Flush 3 Ml Syringe IVFLUSH 3 ml QSHIFT ELIA Administration Valproic Acid 500 mg 10/12/20 21:00 11/02/20 20:36 Valproic Acid (As Sodium Salt) 250 Mg/5 Ml Solution G-TUBE 500 mg BEDTIME ELIA Administration Valproic Acid 250 mg 10/13/20 09:00 11/03/20 09:19 Valproic Acid (As Sodium Salt) 250 Mg/5 Ml Solution PO 250 mg DAILY ELIA Administration Labs CBC & Chem 7: 10/31/20 05:48 10/31/20 05:48 Microbiology Microbiology Results: Microbiology 10/29/20 08:25 Blood - Venous Blood Culture - Final No growth after 5 days. 10/29/20 08:25 Blood - Venous Blood Culture - Final No growth after 5 days. 10/29/20 22:45 Neck Gram Stain - Final 10/29/20 22:45 Neck Routine Culture - Final Methicillin Res Staph Aureus 10/19/20 09:45 Blood - Venous Blood Culture - Final No growth after 5 days. 10/19/20 09:45 Blood - Venous Blood Culture - Final No growth after 5 days. 10/15/20 01:05 Blood - Venous Blood Culture - Final No growth after 5 days. 10/15/20 01:01 Blood - Venous Blood Culture - Final No growth after 5 days. 10/14/20 18:21 Urine [place] Urine Culture - Final No growth. 10/04/20 21:00 Blood - Central Line Blood Culture - Final No growth after 5 days. 10/04/20 20:53 Blood - Central Line Blood Culture - Final No growth after 5 days. 10/04/20 06:56 Sputum - Suctioned Gram Stain - Final 10/04/20 06:56 Sputum - Suctioned Sputum Culture - Final Enterobacter cloacae complex 10/04/20 06:56 Urine [place] Urine Culture - Final No growth. 09/26/20 15:00 Sputum - Suctioned Gram Stain - Final 09/26/20 15:00 Sputum - Suctioned Sputum Culture - Final Enterobacter cloacae complex 09/22/20 21:39 Blood - Venous Blood Culture - Final No growth after 5 days. 09/22/20 21:38 Blood - Venous Blood Culture - Final No growth after 5 days. 09/22/20 22:07 Urine clean catch - Clean Catch Midstream Urine Culture - Final Escherichia coli Assessment and Plan (1) Acute respiratory failure: Status: Acute (2) Sepsis: Status: Acute (3) H/O tracheostomy: Status: Acute (4) Tracheitis: Status: Acute (5) Cerebral palsy: Status: Acute Assessment and Plan: This is a 60 yo gentleman with underlying history of developmental delay, cerebral palso, spastic quadriplegia, seizure disorder, dysphasia, wheelchair-bound, [place] [facility] resident who presented to the ED on 09/23/2020 with fever and vomiting. His course has been complicated by multiple episodes of respiratory failure and ultimately required PEG/Trach placement. He was due to transfer on 10/14/2020 but spiked a fever and discharge was cancelled. Sepsis, resolved Secondary to tracheitis No fever over last 24 hours, WBCs trending down to Wound culture growing MRSA Discontinue doxycycline Treat with Zyvox D2/10 days Hold fluoxetine during the treatment time Pulmonary input appreciated Acute resp. failure due to recurrent aspiration now with trach and peg, will need to change the trach into uncuffed Trach changed to uncuffed today 11/03/20 continue current care Stable on 5 L of oxygen Recurrent aspiration pneumonia antibiotics discontinued 10/22/2020, completed multiple course Leukocytosis improved and trended Seizure disorder depakote 500mg/250mg E. Coli UTI completed treatment Moderate to Severe protein calorie malnutrition On G-tube tube feeds to start bolus diet Water flushes Monitor for tolerance Mood continue fluoxetine prn ativan Sinus Tachycardia multifactorial, with recent respiratory disease, anxiety Controlled Abnromal CT head Reported possible bleeding Repeated CT brain does not show any acute bleed / ischemia. DNR/DNI DVT pptx, lovenox Dispo: Ready for dc , pending accepting facility
--- NOTE | 2020-11-03 15:36 | MHC.CM.PN ---
[facility] has a bed offer from [facility].CM Management is assisting with obtaining a Notice of Intent, which will allow Patient to be admitted to a SNF. CM will continue to follow.
[2020-11-03] MEDS: Enoxaparin Sodium 40 MG/0.4 ML SYRINGE SUBCUT (17:27)
[2020-11-03] MEDS: Acetaminophen Oral Liquid 650 MG/20.3 ML SOLUTION OG-TUBE (18:04)
[2020-11-04] VITALS (7 sets, daily range): BP systolic 99–136; BP diastolic 61–85; PULSE 76–136; RESP 16–20; TEMP 36.1–36.6; O2SAT 97–100; BMI 14.1
[2020-11-04] MEDS: 0.9 % Sodium Chloride Flush 3 ML SYRINGE IVFLUSH ×3 (00:07→15:45)
[2020-11-04] MEDS: Linezolid 600 MG TABLET PO ×2 (00:07→11:30)
[2020-11-04] MEDS: LORazepam 0.5 MG TABLET G-TUBE ×4 (02:15→21:22)
[2020-11-04] MEDS: Chlorhexidine Gluc Oral Rinse 15 ML MOUTHWASH BUCCAL ×2 (08:03→21:21)
[2020-11-04] MEDS: Famotidine 20 MG TABLET G-TUBE (08:03)
[2020-11-04] MEDS: Metoprolol Tartrate 50 MG TABLET G-TUBE ×2 (08:03→21:22)
[2020-11-04] MEDS: rOPINIRole HCL 0.25 MG TABLET G-TUBE ×2 (08:03→21:22)
[2020-11-04] MEDS: Nystatin Cream 15 GM TUBE 1 APPL TOPICAL ×2 (08:03→21:23)
[2020-11-04] MEDS: Nystatin Powder 15 GM BOTTLE 1 APPL TOPICAL ×2 (08:04→21:24)
--- NOTE | 2020-11-04 11:37 | MHC.CM.PN ---
Paperwork for The Intent to Transfer is completed and being filed today. Patient is accepted at [facility] [place], who has already ordered specific trach supplies for this Patient. SNF has initiated Level II PASRR and Patient will need another (-) Covid on day of dc. CM met in person today with Sister/Guardian/Sharri([phone]), who signed necessary paperwork and another IMM was addressed with her (She does request that another IMM NOT be sent to her again.DDS MALORIE Zuniga will need to be notified of dc date([phone]).
--- NOTE | 2020-11-04 12:49 | P.PNIM_ITS ---
Subjective Subjective Date of Service: 11/04/20 Interval History: seen and examined no issues reported by direct support staff member no diarrhea reported Physical Exam Vital Signs: Vital Signs: Last Vital Signs Temp 96.9 F 11/04/20 12:00 Pulse 95 11/04/20 12:00 Resp 19 11/04/20 12:00 BP 99/66 11/04/20 12:00 Pulse Ox 100 11/04/20 12:00 Body Mass Index 14.1 Const: Other: Alert, , not in distress Neck : Normal inspection, Supple Cardiovascular : Sinus tachycardia, RRR, S1 S2, no lower extremity edema Respiratory - no distress Gastrointestinal: soft, lax, Normal bowel sounds, Non tender Skin : Warm/Dry, No rash Neurological : Alert , non-verbal, spastic looking Objective Data Current Medications Generic Name Dose Route Start Last Admin Trade Name Freq PRN Reason Stop Dose Admin Acetaminophen 650 mg 09/30/20 20:05 11/03/20 18:04 Acetaminophen Oral Liquid 650 Mg/20.3 Ml Solution OG-TUBE 650 mg Q6H PRN Administration Pain and Fever Acetaminophen 650 mg 10/02/20 21:14 10/29/20 04:13 Acetaminophen Supp 650 Mg Supp.Rect ME 650 mg Q6H PRN Administration Fever Bisacodyl 10 mg 09/28/20 14:02 10/02/20 10:04 Bisacodyl 10 Mg Supp.Rect ME 10 mg DAILY PRN Administration Constipation Chlorhexidine Gluconate 15 ml 11/01/20 09:00 11/04/20 08:03 Chlorhexidine Gluc Oral Rinse 15 Ml Mouthwash BUCCAL 15 ml BID ELIA Administration Enoxaparin Sodium 40 mg 10/25/20 18:00 11/03/20 17:27 Enoxaparin Sodium 40 Mg/0.4 Ml Syringe SUBCUT 40 mg Q24H ELIA Administration Famotidine 20 mg 10/09/20 09:00 11/04/20 08:03 Famotidine 20 Mg Tablet G-TUBE 20 mg DAILY ELIA Administration Lactulose 30 gm 10/08/20 16:32 Lactulose 20 Gm/30 Ml Solution G-TUBE BID PRN constipation Linezolid 600 mg 11/02/20 12:00 11/04/20 11:30 Linezolid 600 Mg Tablet PO 600 mg Q12H ELIA Administration Lorazepam 0.5 mg 10/30/20 18:30 11/04/20 11:30 Lorazepam 0.5 Mg Tablet G-TUBE 0.5 mg Q8H ELIA Administration Metoprolol Tartrate 50 mg 10/30/20 21:00 11/04/20 08:03 Metoprolol Tartrate 50 Mg Tablet G-TUBE 50 mg BID ELIA Administration Protocol Nystatin 1 appl 10/11/20 21:00 11/04/20 08:04 Nystatin Powder 15 Gm Bottle TOPICAL 1 appl BID ELIA Administration Protocol Nystatin 1 appl 10/19/20 21:00 11/04/20 08:03 Nystatin Cream 15 Gm Tube TOPICAL 1 appl BID ELIA Administration Protocol Ondansetron HCl 4 mg 09/28/20 15:49 09/28/20 15:58 Ondansetron Hcl 4 Mg/2 Ml Vial IVPUSH 4 mg Q6H PRN Administration Nausea Pharmacy Consult 1 each 10/29/20 08:58 Consult Rx Vancomycin Dosing MISCELLANE DAILY PRN Consult order Ropinirole HCl 0.25 mg 11/01/20 09:00 11/04/20 08:03 Ropinirole Hcl 0.25 Mg Tablet G-TUBE 0.25 mg BID ELIA Administration Sodium Chloride 3 ml 09/23/20 16:00 11/04/20 08:04 0.9 % Sodium Chloride Flush 3 Ml Syringe IVFLUSH 3 ml QSHIFT ELIA Administration Valproic Acid 500 mg 10/12/20 21:00 11/03/20 22:02 Valproic Acid (As Sodium Salt) 250 Mg/5 Ml Solution G-TUBE 500 mg BEDTIME ELIA Administration Valproic Acid 250 mg 10/13/20 09:00 11/04/20 08:03 Valproic Acid (As Sodium Salt) 250 Mg/5 Ml Solution PO 250 mg DAILY ELIA Administration Labs CBC & Chem 7: 10/31/20 05:48 10/31/20 05:48 Microbiology Microbiology Results: Microbiology 10/29/20 08:25 Blood - Venous Blood Culture - Final No growth after 5 days. 10/29/20 08:25 Blood - Venous Blood Culture - Final No growth after 5 days. 10/29/20 22:45 Neck Gram Stain - Final 10/29/20 22:45 Neck Routine Culture - Final Methicillin Res Staph Aureus 10/19/20 09:45 Blood - Venous Blood Culture - Final No growth after 5 days. 10/19/20 09:45 Blood - Venous Blood Culture - Final No growth after 5 days. 10/15/20 01:05 Blood - Venous Blood Culture - Final No growth after 5 days. 10/15/20 01:01 Blood - Venous Blood Culture - Final No growth after 5 days. 10/14/20 18:21 Urine [place] Urine Culture - Final No growth. 10/04/20 21:00 Blood - Central Line Blood Culture - Final No growth after 5 days. 10/04/20 20:53 Blood - Central Line Blood Culture - Final No growth after 5 days. 10/04/20 06:56 Sputum - Suctioned Gram Stain - Final 10/04/20 06:56 Sputum - Suctioned Sputum Culture - Final Enterobacter cloacae complex 10/04/20 06:56 Urine [place] Urine Culture - Final No growth. 09/26/20 15:00 Sputum - Suctioned Gram Stain - Final 09/26/20 15:00 Sputum - Suctioned Sputum Culture - Final Enterobacter cloacae complex 09/22/20 21:39 Blood - Venous Blood Culture - Final No growth after 5 days. 09/22/20 21:38 Blood - Venous Blood Culture - Final No growth after 5 days. 09/22/20 22:07 Urine clean catch - Clean Catch Midstream Urine Culture - Final Escherichia coli Assessment and Plan (1) Tracheitis: Status: Acute Assessment and Plan: This is a 60 yo gentleman with underlying history of developmental delay, cerebral palsy, spastic quadriplegia, seizure disorder, dysphasia, wheelchair- bound, [facility] resident who presented to the ED on 09/23/2020 with fever and vomiting. His course has been complicated by multiple episodes of respiratory failure and ultimately required PEG/Trach placement. He was due to transfer on 10/14/2020 but spiked a fever and discharge was cancelled. 1.Sepsis, resolved Secondary to tracheitis, MRSA+ last documented fever 10/30/2020 Treat with Zyvox D3/10 days Hold fluoxetine during the treatment time Pulmonary input appreciated ID input appreciated 2. Acute resp. failure due to recurrent aspiration s/p Trach/Peg Trach changed a 7 DIC [place] uncuffed tracheostomy by pulmonary continue current care 3. Recurrent aspiration pneumonia antibiotics discontinued 10/22/2020, completed multiple course Leukocytosis improved and trended 4. Seizure disorder depakote 500mg/250mg 5. E. Coli UTI completed treatment 6. Moderate to Severe protein calorie malnutrition tolerating feeds. On Jeveity q6h bolus @ 250ml; water flush with 120ml @6h; Residuals checked q4 hours and hold for 2 hours if >250ml 6. Mood continue fluoxetine after zyvox Rx completed prn ativan 7. Sinus Tachycardia multifactorial, with recent respiratory disease, anxiety Controlled 8. Abnromal CT head Reported possible bleeding Repeated CT brain does not show any acute bleed / ischemia. DNR/DNI DVT pptx, lovenox Dispo: Ready for dc , pending accepting facility
--- NOTE | 2020-11-04 13:06 | MHC.CM.PN ---
See previous CM notes- Intent to Transfer is good until 11/10/20. SNF cannot accept Patient until 11/08/20 (trach supplies have been ordered but not anticipated to arrive until Sunday and SNF declined [facility] send [place] with necessary trach supplies). CM awaits word from [facility], on their bed availability for today. CM will follow.
--- NOTE | 2020-11-04 14:56 | MHC.CM.PN ---
See previous CM note. [facility] will reassess referral on 11/08/19.
[2020-11-04] MEDS: Morphine Sulfate 2 MG/ML CARTRIDGE IVPUSH (16:37)
[2020-11-04] MEDS: Enoxaparin Sodium 40 MG/0.4 ML SYRINGE SUBCUT (17:21)
[2020-11-05] VITALS (8 sets, daily range): BP systolic 94–142; BP diastolic 58–84; PULSE 76–111; RESP 18–20; TEMP 35.5–36.6; O2SAT 92–100; BMI 13.0
[2020-11-05] MEDS: 0.9 % Sodium Chloride Flush 3 ML SYRINGE IVFLUSH ×4 (00:06→22:35)
[2020-11-05] MEDS: Linezolid 600 MG TABLET PO ×3 (00:14→22:34)
[2020-11-05] MEDS: LORazepam 0.5 MG TABLET G-TUBE ×3 (05:27→22:35)
[2020-11-05] MEDS: Metoprolol Tartrate 50 MG TABLET G-TUBE ×2 (09:29→22:34)
[2020-11-05] MEDS: rOPINIRole HCL 0.25 MG TABLET G-TUBE ×2 (09:29→22:35)
[2020-11-05] MEDS: Famotidine 20 MG TABLET G-TUBE (09:29)
[2020-11-05] MEDS: Nystatin Powder 15 GM BOTTLE 1 APPL TOPICAL ×2 (09:38→22:53)
[2020-11-05] MEDS: Nystatin Cream 15 GM TUBE 1 APPL TOPICAL ×2 (09:38→22:53)
--- NOTE | 2020-11-05 09:56 | P.PNIM_ITS ---
Subjective Subjective Date of Service: 11/05/20 Interval History: seen and examined no reported issues over night remains afebrile Physical Exam Vital Signs: Vital Signs: Last Vital Signs Temp 98 F 11/05/20 07:24 Pulse 77 11/05/20 09:29 Resp 18 11/05/20 07:24 BP 142/84 H 11/05/20 09:29 Pulse Ox 98 11/05/20 07:24 Body Mass Index 13.0 Const: Other: Gen - Alert, not in distress Neck - Normal inspection, Supple Cardiovascular - RRR Respiratory - no distress Gastrointestinal - soft, Normal bowel sounds, Non tender Skin - Warm/Dry Neurological - Alert , non-verbal Objective Data Current Medications Generic Name Dose Route Start Last Admin Trade Name Freq PRN Reason Stop Dose Admin Acetaminophen 650 mg 09/30/20 20:05 11/03/20 18:04 Acetaminophen Oral Liquid 650 Mg/20.3 Ml Solution OG-TUBE 650 mg Q6H PRN Administration Pain and Fever Acetaminophen 650 mg 10/02/20 21:14 10/29/20 04:13 Acetaminophen Supp 650 Mg Supp.Rect [place] 650 mg Q6H PRN Administration Fever Bisacodyl 10 mg 09/28/20 14:02 10/02/20 10:04 Bisacodyl 10 Mg Supp.Rect DE 10 mg DAILY PRN Administration Constipation Chlorhexidine Gluconate 15 ml 11/01/20 09:00 11/04/20 21:21 Chlorhexidine Gluc Oral Rinse 15 Ml Mouthwash BUCCAL 15 ml BID ELIA Administration Enoxaparin Sodium 40 mg 10/25/20 18:00 11/04/20 17:21 Enoxaparin Sodium 40 Mg/0.4 Ml Syringe SUBCUT 40 mg Q24H ELIA Administration Famotidine 20 mg 10/09/20 09:00 11/05/20 09:29 Famotidine 20 Mg Tablet G-TUBE 20 mg DAILY ELIA Administration Lactulose 30 gm 10/08/20 16:32 Lactulose 20 Gm/30 Ml Solution G-TUBE BID PRN constipation Linezolid 600 mg 11/02/20 12:00 11/05/20 00:14 Linezolid 600 Mg Tablet PO 600 mg Q12H ELIA Administration Lorazepam 0.5 mg 11/04/20 21:00 11/05/20 05:27 Lorazepam 0.5 Mg Tablet G-TUBE 0.5 mg Q8H ELIA Administration Metoprolol Tartrate 50 mg 10/30/20 21:00 11/05/20 09:29 Metoprolol Tartrate 50 Mg Tablet G-TUBE 50 mg BID ELIA Administration Protocol Morphine Sulfate 2 mg 11/04/20 16:21 11/04/20 16:37 Morphine Sulfate 2 Mg/Ml Cartridge IVPUSH 2 mg Q3H PRN Administration pain/respiratory distress Nystatin 1 appl 10/11/20 21:00 11/05/20 09:38 Nystatin Powder 15 Gm Bottle TOPICAL 1 appl BID ELIA Administration Protocol Nystatin 1 appl 10/19/20 21:00 11/05/20 09:38 Nystatin Cream 15 Gm Tube TOPICAL 1 appl BID ELIA Administration Protocol Ondansetron HCl 4 mg 09/28/20 15:49 09/28/20 15:58 Ondansetron Hcl 4 Mg/2 Ml Vial IVPUSH 4 mg Q6H PRN Administration Nausea Ropinirole HCl 0.25 mg 11/01/20 09:00 11/05/20 09:29 Ropinirole Hcl 0.25 Mg Tablet G-TUBE 0.25 mg BID ELIA Administration Sodium Chloride 3 ml 09/23/20 16:00 11/05/20 09:38 0.9 % Sodium Chloride Flush 3 Ml Syringe IVFLUSH 3 ml QSHIFT ELIA Administration Valproic Acid 500 mg 10/12/20 21:00 11/04/20 21:22 Valproic Acid (As Sodium Salt) 250 Mg/5 Ml Solution G-TUBE 500 mg BEDTIME ELIA Administration Valproic Acid 250 mg 10/13/20 09:00 11/05/20 09:29 Valproic Acid (As Sodium Salt) 250 Mg/5 Ml Solution PO 250 mg DAILY ELIA Administration Labs CBC & Chem 7: 10/31/20 05:48 10/31/20 05:48 Microbiology Microbiology Results: Microbiology 10/29/20 08:25 Blood - Venous Blood Culture - Final No growth after 5 days. 10/29/20 08:25 Blood - Venous Blood Culture - Final No growth after 5 days. 10/29/20 22:45 Neck Gram Stain - Final 10/29/20 22:45 Neck Routine Culture - Final Methicillin Res Staph Aureus 10/19/20 09:45 Blood - Venous Blood Culture - Final No growth after 5 days. 10/19/20 09:45 Blood - Venous Blood Culture - Final No growth after 5 days. 10/15/20 01:05 Blood - Venous Blood Culture - Final No growth after 5 days. 10/15/20 01:01 Blood - Venous Blood Culture - Final No growth after 5 days. 10/14/20 18:21 Urine [place] Urine Culture - Final No growth. 10/04/20 21:00 Blood - Central Line Blood Culture - Final No growth after 5 days. 10/04/20 20:53 Blood - Central Line Blood Culture - Final No growth after 5 days. 10/04/20 06:56 Sputum - Suctioned Gram Stain - Final 10/04/20 06:56 Sputum - Suctioned Sputum Culture - Final Enterobacter cloacae complex 10/04/20 06:56 Urine [place] Urine Culture - Final No growth. 09/26/20 15:00 Sputum - Suctioned Gram Stain - Final 09/26/20 15:00 Sputum - Suctioned Sputum Culture - Final Enterobacter cloacae complex 09/22/20 21:39 Blood - Venous Blood Culture - Final No growth after 5 days. 09/22/20 21:38 Blood - Venous Blood Culture - Final No growth after 5 days. 09/22/20 22:07 Urine clean catch - Clean Catch Midstream Urine Culture - Final Escherichia coli Assessment and Plan (1) Tracheitis: Status: Acute Assessment and Plan: This is a 60 yo gentleman with underlying history of developmental delay, cerebral palsy, spastic quadriplegia, seizure disorder, dysphasia, wheelchair- bound, nursing home resident who presented to the ED on 09/23/2020 with fever and vomiting. His course has been complicated by multiple episodes of respiratory failure and ultimately required PEG/Trach placement. He was due to transfer on 10/14/2020 but spiked a fever and discharge was cancelled. 1.Sepsis, resolved Secondary to tracheitis, MRSA+ last documented fever 10/30/2020 Zyvox - day 02/12 Hold fluoxetine during the treatment time with zyvox Pulmonary input appreciated ID input appreciated 2. Acute resp. failure due to recurrent aspiration s/p Trach/Peg Trach changed a 7 DIC [place] uncuffed tracheostomy by pulmonary continue current care 3. Recurrent aspiration pneumonia antibiotics discontinued 10/22/2020, completed multiple course Leukocytosis improved and trended 4. Seizure disorder depakote 500mg/250mg 5. E. Coli UTI completed treatment 6. Moderate to Severe protein calorie malnutrition tolerating feeds. On Jeveity q6h bolus @ 250ml; water flush with 120ml @6h; Residuals checked q4 hours and hold for 2 hours if >250ml 6. Mood continue fluoxetine after zyvox Rx completed prn ativan 7. Sinus Tachycardia improved 8. Abnromal CT head Reported possible bleeding Repeated CT brain does not show any acute bleed / ischemia. DNR/DNI DVT pptx, lovenox Dispo: Remains medically stable for dc , pending accepting facility
[2020-11-05] MEDS: Enoxaparin Sodium 40 MG/0.4 ML SYRINGE SUBCUT (18:10)
[2020-11-05 19:13] LABS: CDIFF Ag Positive (Negative); CDIFF Internal ctrl Dots and bkg OK (V); CDiff Toxin Negative (Negative)
[2020-11-06] VITALS (9 sets, daily range): BP systolic 93–132; BP diastolic 63–78; PULSE 72–161; RESP 18–20; TEMP 35.7–36.7; O2SAT 90–100; BMI 12.7
[2020-11-06] MEDS: LORazepam 0.5 MG TABLET G-TUBE ×3 (05:30→23:50)
[2020-11-06] MEDS: Famotidine 20 MG TABLET G-TUBE (09:10)
[2020-11-06] MEDS: rOPINIRole HCL 0.25 MG TABLET G-TUBE ×2 (09:10→23:49)
[2020-11-06] MEDS: Metoprolol Tartrate 50 MG TABLET G-TUBE ×2 (09:10→23:49)
[2020-11-06] MEDS: Nystatin Powder 15 GM BOTTLE 1 APPL TOPICAL ×2 (09:10→23:50)
[2020-11-06] MEDS: 0.9 % Sodium Chloride Flush 3 ML SYRINGE IVFLUSH ×3 (09:11→23:50)
[2020-11-06] MEDS: Nystatin Cream 15 GM TUBE 1 APPL TOPICAL ×2 (09:11→23:51)
--- NOTE | 2020-11-06 11:31 | HO.PM.IMPN ---
Subjective Subjective Date of Service: 11/06/20 Interval History: seen and examined remains stable Physical Exam Vital Signs: Vital Signs: Last Vital Signs Temp 98 F 11/06/20 11:24 Pulse 88 11/06/20 11:24 Resp 20 11/06/20 11:24 BP 132/64 11/06/20 11:24 Pulse Ox 95 11/06/20 11:24 Body Mass Index 12.7 Const: Other: Gen - Alert, not in distress Neck - Normal inspection, Supple Cardiovascular - RRR Respiratory - no distress Gastrointestinal - soft, Normal bowel sounds, Non tender Skin - Warm/Dry Neurological - Alert , non-verbal Objective Data Current Medications Generic Name Dose Route Start Last Admin Trade Name Freq PRN Reason Stop Dose Admin Acetaminophen 650 mg 09/30/20 20:05 11/03/20 18:04 Acetaminophen Oral Liquid 650 Mg/20.3 Ml Solution OG-TUBE 650 mg Q6H PRN Administration Pain and Fever Acetaminophen 650 mg 10/02/20 21:14 10/29/20 04:13 Acetaminophen Supp 650 Mg Supp.Rect ND 650 mg Q6H PRN Administration Fever Bisacodyl 10 mg 09/28/20 14:02 10/02/20 10:04 Bisacodyl 10 Mg Supp.Rect ND 10 mg DAILY PRN Administration Constipation Chlorhexidine Gluconate 15 ml 11/01/20 09:00 11/06/20 09:15 Chlorhexidine Gluc Oral Rinse 15 Ml Mouthwash BUCCAL Not Given BID ELIA Enoxaparin Sodium 40 mg 10/25/20 18:00 11/05/20 18:10 Enoxaparin Sodium 40 Mg/0.4 Ml Syringe SUBCUT 40 mg Q24H ELIA Administration Famotidine 20 mg 10/09/20 09:00 11/06/20 09:10 Famotidine 20 Mg Tablet G-TUBE 20 mg DAILY ELIA Administration Lactulose 30 gm 10/08/20 16:32 Lactulose 20 Gm/30 Ml Solution G-TUBE BID PRN constipation Linezolid 600 mg 11/02/20 12:00 11/05/20 22:34 Linezolid 600 Mg Tablet PO 11/12/20 00:01 600 mg Q12H ELIA Administration Lorazepam 0.5 mg 11/04/20 21:00 11/06/20 05:30 Lorazepam 0.5 Mg Tablet G-TUBE 0.5 mg Q8H ELIA Administration Metoprolol Tartrate 50 mg 10/30/20 21:00 11/06/20 09:10 Metoprolol Tartrate 50 Mg Tablet G-TUBE 50 mg BID ELIA Administration Protocol Morphine Sulfate 2 mg 11/04/20 16:21 11/04/20 16:37 Morphine Sulfate 2 Mg/Ml Cartridge IVPUSH 2 mg Q3H PRN Administration pain/respiratory distress Nystatin 1 appl 10/11/20 21:00 11/06/20 09:10 Nystatin Powder 15 Gm Bottle TOPICAL 1 appl BID ELIA Administration Protocol Nystatin 1 appl 10/19/20 21:00 11/06/20 09:11 Nystatin Cream 15 Gm Tube TOPICAL 1 appl BID ELIA Administration Protocol Ondansetron HCl 4 mg 09/28/20 15:49 09/28/20 15:58 Ondansetron Hcl 4 Mg/2 Ml Vial IVPUSH 4 mg Q6H PRN Administration Nausea Ropinirole HCl 0.25 mg 11/01/20 09:00 11/06/20 09:10 Ropinirole Hcl 0.25 Mg Tablet G-TUBE 0.25 mg BID ELIA Administration Sodium Chloride 3 ml 09/23/20 16:00 11/06/20 09:11 0.9 % Sodium Chloride Flush 3 Ml Syringe IVFLUSH 3 ml QSHIFT ELIA Administration Valproic Acid 500 mg 10/12/20 21:00 11/05/20 22:35 Valproic Acid (As Sodium Salt) 250 Mg/5 Ml Solution G-TUBE 500 mg BEDTIME ELIA Administration Valproic Acid 250 mg 10/13/20 09:00 11/06/20 09:10 Valproic Acid (As Sodium Salt) 250 Mg/5 Ml Solution PO 250 mg DAILY ELIA Administration Labs CBC & Chem 7: 10/31/20 05:48 10/31/20 05:48 Microbiology Microbiology Results: Microbiology 10/29/20 08:25 Blood - Venous Blood Culture - Final No growth after 5 days. 10/29/20 08:25 Blood - Venous Blood Culture - Final No growth after 5 days. 10/29/20 22:45 Neck Gram Stain - Final 10/29/20 22:45 Neck Routine Culture - Final Methicillin Res Staph Aureus 10/19/20 09:45 Blood - Venous Blood Culture - Final No growth after 5 days. 10/19/20 09:45 Blood - Venous Blood Culture - Final No growth after 5 days. 10/15/20 01:05 Blood - Venous Blood Culture - Final No growth after 5 days. 10/15/20 01:01 Blood - Venous Blood Culture - Final No growth after 5 days. 10/14/20 18:21 Urine [place] Urine Culture - Final No growth. 10/04/20 21:00 Blood - Central Line Blood Culture - Final No growth after 5 days. 10/04/20 20:53 Blood - Central Line Blood Culture - Final No growth after 5 days. 10/04/20 06:56 Sputum - Suctioned Gram Stain - Final 10/04/20 06:56 Sputum - Suctioned Sputum Culture - Final Enterobacter cloacae complex 10/04/20 06:56 Urine [place] Urine Culture - Final No growth. 09/26/20 15:00 Sputum - Suctioned Gram Stain - Final 09/26/20 15:00 Sputum - Suctioned Sputum Culture - Final Enterobacter cloacae complex 09/22/20 21:39 Blood - Venous Blood Culture - Final No growth after 5 days. 09/22/20 21:38 Blood - Venous Blood Culture - Final No growth after 5 days. 09/22/20 22:07 Urine clean catch - Clean Catch Midstream Urine Culture - Final Escherichia coli Assessment and Plan (1) Tracheitis: Status: Acute Assessment and Plan: This is a 60 yo gentleman with underlying history of developmental delay, cerebral palsy, spastic quadriplegia, seizure disorder, dysphasia, wheelchair-bound, senior care resident who presented to the ED on 09/23/2020 with fever and vomiting. His course has been complicated by multiple episodes of respiratory failure and ultimately required PEG/Trach placement. He was due to transfer on 10/14/2020 but spiked a fever and discharge was cancelled. 1.Sepsis, resolved Secondary to tracheitis, MRSA+ last documented fever 10/30/2020 Zyvox - day 5 Hold fluoxetine during the treatment time with zyvox Pulmonary input appreciated ID input appreciated 2. Acute resp. failure due to recurrent aspiration s/p Trach/Peg Trach changed a 7 DIC [place] uncuffed tracheostomy by pulmonary continue current care 3. Recurrent aspiration pneumonia antibiotics discontinued 10/22/2020, completed multiple course Leukocytosis improved and trended 4. Seizure disorder depakote 500mg/250mg 5. E. Coli UTI completed treatment 6. Moderate to Severe protein calorie malnutrition tolerating feeds. On Jeveity q6h bolus @ 250ml; water flush with 120ml @6h; Residuals checked q4 hours and hold for 2 hours if >250ml 6. Mood continue fluoxetine after zyvox Rx completed prn ativan 7. Sinus Tachycardia improved 8. Abnromal CT head Reported possible bleeding Repeated CT brain does not show any acute bleed / ischemia. DNR/DNI DVT pptx, lovenox Dispo: Remains medically stable for dc , pending accepting facility
[2020-11-06] MEDS: Linezolid 600 MG TABLET PO ×2 (12:01→23:49)
[2020-11-06 13:34] LABS: CDiff Gene PCR NEGATIVE (Negative)
[2020-11-06] MEDS: Enoxaparin Sodium 40 MG/0.4 ML SYRINGE SUBCUT (17:26)
[2020-11-07 03:28] VITALS: BP 98/63; PULSE 97; RESP 18; TEMP 37.2; O2SAT 98
[2020-11-07] MEDS: LORazepam 0.5 MG TABLET G-TUBE ×3 (05:32→20:21)
[2020-11-07 06:00] VITALS: BMI 12.9
[2020-11-07 08:00] VITALS: BP 111/67; PULSE 101; RESP 20; TEMP 37.2; O2SAT 98
[2020-11-07] MEDS: Chlorhexidine Gluc Oral Rinse 15 ML MOUTHWASH BUCCAL (10:36)
[2020-11-07] MEDS: Famotidine 20 MG TABLET G-TUBE (10:37)
[2020-11-07] MEDS: Nystatin Cream 15 GM TUBE 1 APPL TOPICAL ×2 (10:37→20:23)
[2020-11-07] MEDS: 0.9 % Sodium Chloride Flush 3 ML SYRINGE IVFLUSH ×2 (10:37→18:56)
[2020-11-07] MEDS: Linezolid 600 MG TABLET G-TUBE ×2 (10:37→20:21)
[2020-11-07] MEDS: Metoprolol Tartrate 50 MG TABLET G-TUBE ×2 (10:37→20:21)
[2020-11-07] MEDS: rOPINIRole HCL 0.25 MG TABLET G-TUBE ×2 (10:37→20:21)
[2020-11-07] MEDS: Nystatin Powder 15 GM BOTTLE 1 APPL TOPICAL ×2 (10:38→20:21)
--- NOTE | 2020-11-07 11:06 | HO.PM.IMPN ---
Subjective Subjective Date of Service: 11/07/20 Interval History: seen and examined remains stable and afebrile Physical Exam Vital Signs: Vital Signs: Last Vital Signs Temp 98.9 F 11/07/20 08:00 Pulse 101 H 11/07/20 08:00 Resp 20 11/07/20 08:00 BP 111/67 11/07/20 08:00 Pulse Ox 98 11/07/20 08:00 Body Mass Index 12.9 Const: Other: Gen - Alert, not in distress Neck - Normal inspection, Supple Cardiovascular - RRR Respiratory - no distress Gastrointestinal - soft, Normal bowel sounds, Non tender Skin - Warm/Dry Neurological - Alert , non-verbal Objective Data Current Medications Generic Name Dose Route Start Last Admin Trade Name Freq PRN Reason Stop Dose Admin Acetaminophen 650 mg 09/30/20 20:05 11/03/20 18:04 Acetaminophen Oral Liquid 650 Mg/20.3 Ml Solution OG-TUBE 650 mg Q6H PRN Administration Pain and Fever Acetaminophen 650 mg 10/02/20 21:14 10/29/20 04:13 Acetaminophen Supp 650 Mg Supp.Rect [place] 650 mg Q6H PRN Administration Fever Bisacodyl 10 mg 09/28/20 14:02 10/02/20 10:04 Bisacodyl 10 Mg Supp.Rect [place] 10 mg DAILY PRN Administration Constipation Chlorhexidine Gluconate 15 ml 11/01/20 09:00 11/07/20 10:36 Chlorhexidine Gluc Oral Rinse 15 Ml Mouthwash BUCCAL 15 ml BID ELIA Administration Enoxaparin Sodium 40 mg 10/25/20 18:00 11/06/20 17:26 Enoxaparin Sodium 40 Mg/0.4 Ml Syringe SUBCUT 40 mg Q24H ELIA Administration Famotidine 20 mg 10/09/20 09:00 11/07/20 10:37 Famotidine 20 Mg Tablet G-TUBE 20 mg DAILY ELIA Administration Lactulose 30 gm 10/08/20 16:32 Lactulose 20 Gm/30 Ml Solution G-TUBE BID PRN constipation Linezolid 600 mg 11/07/20 09:00 11/07/20 10:37 Linezolid 600 Mg Tablet G-TUBE 11/11/20 21:01 600 mg BID ELIA Administration Lorazepam 0.5 mg 11/04/20 21:00 11/07/20 05:32 Lorazepam 0.5 Mg Tablet G-TUBE 0.5 mg Q8H ELIA Administration Metoprolol Tartrate 50 mg 10/30/20 21:00 11/07/20 10:37 Metoprolol Tartrate 50 Mg Tablet G-TUBE 50 mg BID ELIA Administration Protocol Morphine Sulfate 2 mg 11/04/20 16:21 11/04/20 16:37 Morphine Sulfate 2 Mg/Ml Cartridge IVPUSH 2 mg Q3H PRN Administration pain/respiratory distress Nystatin 1 appl 10/11/20 21:00 11/07/20 10:38 Nystatin Powder 15 Gm Bottle TOPICAL 1 appl BID ELIA Administration Protocol Nystatin 1 appl 10/19/20 21:00 11/07/20 10:37 Nystatin Cream 15 Gm Tube TOPICAL 1 appl BID ELIA Administration Protocol Ondansetron HCl 4 mg 09/28/20 15:49 09/28/20 15:58 Ondansetron Hcl 4 Mg/2 Ml Vial IVPUSH 4 mg Q6H PRN Administration Nausea Ropinirole HCl 0.25 mg 11/01/20 09:00 11/07/20 10:37 Ropinirole Hcl 0.25 Mg Tablet G-TUBE 0.25 mg BID ELIA Administration Sodium Chloride 3 ml 09/23/20 16:00 11/07/20 10:37 0.9 % Sodium Chloride Flush 3 Ml Syringe IVFLUSH 3 ml QSHIFT ELIA Administration Valproic Acid 500 mg 10/12/20 21:00 11/06/20 23:50 Valproic Acid (As Sodium Salt) 250 Mg/5 Ml Solution G-TUBE 500 mg BEDTIME ELIA Administration Valproic Acid 250 mg 10/13/20 09:00 11/07/20 10:37 Valproic Acid (As Sodium Salt) 250 Mg/5 Ml Solution PO 250 mg DAILY ELIA Administration Labs CBC & Chem 7: 10/31/20 05:48 10/31/20 05:48 Microbiology Microbiology Results: Microbiology 10/29/20 08:25 Blood - Venous Blood Culture - Final No growth after 5 days. 10/29/20 08:25 Blood - Venous Blood Culture - Final No growth after 5 days. 10/29/20 22:45 Neck Gram Stain - Final 10/29/20 22:45 Neck Routine Culture - Final Methicillin Res Staph Aureus 10/19/20 09:45 Blood - Venous Blood Culture - Final No growth after 5 days. 10/19/20 09:45 Blood - Venous Blood Culture - Final No growth after 5 days. 10/15/20 01:05 Blood - Venous Blood Culture - Final No growth after 5 days. 10/15/20 01:01 Blood - Venous Blood Culture - Final No growth after 5 days. 10/14/20 18:21 Urine [place] Urine Culture - Final No growth. 10/04/20 21:00 Blood - Central Line Blood Culture - Final No growth after 5 days. 10/04/20 20:53 Blood - Central Line Blood Culture - Final No growth after 5 days. 10/04/20 06:56 Sputum - Suctioned Gram Stain - Final 10/04/20 06:56 Sputum - Suctioned Sputum Culture - Final Enterobacter cloacae complex 10/04/20 06:56 Urine [place] Urine Culture - Final No growth. 09/26/20 15:00 Sputum - Suctioned Gram Stain - Final 09/26/20 15:00 Sputum - Suctioned Sputum Culture - Final Enterobacter cloacae complex 09/22/20 21:39 Blood - Venous Blood Culture - Final No growth after 5 days. 09/22/20 21:38 Blood - Venous Blood Culture - Final No growth after 5 days. 09/22/20 22:07 Urine clean catch - Clean Catch Midstream Urine Culture - Final Escherichia coli Assessment and Plan (1) Tracheitis: Status: Acute Assessment and Plan: This is a 60 yo gentleman with underlying history of developmental delay, cerebral palsy, spastic quadriplegia, seizure disorder, dysphasia, wheelchair-bound, half-way resident who presented to the ED on 09/23/2020 with fever and vomiting. His course has been complicated by multiple episodes of respiratory failure and ultimately required PEG/Trach placement. He was due to transfer on 10/14/2020 but spiked a fever and discharge was cancelled. 1.Sepsis, resolved Secondary to tracheitis, MRSA+ last documented fever 10/30/2020 Zyvox - day 6; last date 11/11/2020 Hold fluoxetine during the treatment time with zyvox Pulmonary input appreciated ID input appreciated 2. Acute resp. failure due to recurrent aspiration s/p Trach/Peg Trach changed a 7 DIC [place] uncuffed tracheostomy by pulmonary continue current care 3. Recurrent aspiration pneumonia antibiotics discontinued 10/22/2020, completed multiple course Leukocytosis improved and trended 4. Seizure disorder depakote 500mg/250mg 5. E. Coli UTI completed treatment 6. Moderate to Severe protein calorie malnutrition tolerating feeds. On [place]ve[place] q6h bolus @ 250ml; water flush with 120ml @6h; Residuals checked q4 hours and hold for 2 hours if >250ml 6. Mood continue fluoxetine after zyvox Rx completed prn ativan 7. Sinus Tachycardia improved 8. Abnromal CT head Reported possible bleeding Repeated CT brain does not show any acute bleed / ischemia. DNR/DNI DVT pptx, lovenox Dispo: Remains medically stable for dc , pending accepting facility
[2020-11-07 12:00] VITALS: BP 148/78; PULSE 86; RESP 22; TEMP 36.5; O2SAT 94
[2020-11-07 15:34] VITALS: BP 109/69; PULSE 97; RESP 19; TEMP 36.7; O2SAT 99
[2020-11-07] MEDS: Enoxaparin Sodium 40 MG/0.4 ML SYRINGE SUBCUT (18:56)
[2020-11-07 19:33] VITALS: BP 126/63; PULSE 104; RESP 19; TEMP 36.7; O2SAT 100
[2020-11-08] VITALS (8 sets, daily range): BP systolic 100–120; BP diastolic 55–66; PULSE 89–140; RESP 20; TEMP 36.6–37.2; O2SAT 93–99; BMI 13.2
[2020-11-08] MEDS: 0.9 % Sodium Chloride Flush 3 ML SYRINGE IVFLUSH ×2 (00:02→09:38)
[2020-11-08] MEDS: LORazepam 0.5 MG TABLET G-TUBE ×2 (04:39→14:08)
[2020-11-08] MEDS: Linezolid 600 MG TABLET G-TUBE (09:38)
[2020-11-08] MEDS: Metoprolol Tartrate 50 MG TABLET G-TUBE (09:38)
[2020-11-08] MEDS: rOPINIRole HCL 0.25 MG TABLET G-TUBE (09:38)
[2020-11-08] MEDS: Chlorhexidine Gluc Oral Rinse 15 ML MOUTHWASH BUCCAL (09:41)
[2020-11-08] MEDS: Famotidine 20 MG TABLET G-TUBE (09:41)
[2020-11-08] MEDS: Nystatin Powder 15 GM BOTTLE 1 APPL TOPICAL (09:42)
[2020-11-08] MEDS: Nystatin Cream 15 GM TUBE 1 APPL TOPICAL (09:42)
--- NOTE | 2020-11-08 12:01 | MHC.CM.PN ---
Patient has been medically cleared for dc to SNF today. Patient will dc to [facility] today at 4 PM, via [facility] (newer trach that may require suctioning during transport). Patient's Sister/Guardian/Sharri is aware of and in agreement with the dc plan. Another IMM addressed with Sharri today.
[2020-11-08 13:02] LABS: COVID-19 Test Negative (Negative)
--- NOTE | 2020-11-08 13:33 | P.DS_ITS ---
DS: Providers Provider Date of admission: 09/23/20 09:10 Primary care physician: Bonifacio Fletcher MD Consults: 09/23/20 10:23 Consult to Infectious Diseases Routine Consulting Provider: Infectious Disease Reason for consultation: Sepsis Has provider been notified: No 10/07/20 14:38 Consult to General Surgery Routine Consulting Provider: Kevin Hester Reason for consultation: Gastrostomy Has provider been notified: Yes 10/16/20 08:43 Consult to Infectious Diseases Routine Consulting Provider: Rasheeda Brice Reason for consultation: Fever of unknown source Has provider been notified: No 10/30/20 17:04 Consult to Pulmonology Routine Consulting Provider: Rehan Ervin Reason for consultation: Tracheoostomy eval for thick secretions\possible infection 11/08/20 08:10 Consult to Infectious Diseases Stat Consulting Provider: Rasheeda Brice Reason for consultation: NEW LINEZOLID ORDERED 11/07 DS: Diagnosis Discharge Diagnosis (1) Tracheitis: Status: Acute DS: Medications Discharge Medications Home Medications: Home Medications Medication Instructions Recorded Confirmed alendronate 70 mg PO Q7D 09/22/20 09/22/20 Previous Rx's Medication Instructions Recorded acetaminophen 650 mg OG-TUBE Q6H PRN #240 ml 10/14/20 acetaminophen 650 mg GA Q6H PRN #30 ea 10/14/20 bisacodyl [Gentle Laxative 10 mg GA DAILY PRN #3 ea 10/14/20 (bisacodyl)] chlorhexidine gluconate 15 ml BUCCAL TID #240 ml 10/14/20 famotidine 20 mg G-TUBE DAILY #240 tab 10/14/20 lactulose 30 g G-TUBE BID PRN #240 ml 10/14/20 nystatin 1 appl TOPICAL BID #1 g 10/14/20 valproic acid (as sodium salt) 250 mg PO DAILY #240 ml 10/14/20 valproic acid (as sodium salt) 500 mg G-TUBE BEDTIME #240 ml 10/14/20 morphine 2 mg IVPUSH Q4H PRN #1 ml 10/25/20 linezolid 600 mg G-TUBE BID #7 tab 11/08/20 metoprolol tartrate 50 mg G-TUBE BID #1 tab 11/08/20 ropinirole 0.25 mg G-TUBE BID #1 tab 11/08/20 DS: Summary Hospital Course Hospital Course: History of presenting illness 60-year-old with 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 and wheelchair-bound noted to be short of breath presented with acute hypoxemic respiratory failure intubated with significant pattern of extensive bilateral ground-glass infiltrates and consolidation with elevated white count and left shift negative for COVID but the rest of the respiratory panel is pending he has become increasingly hypercapnic with end-tidal CO2 is dropping to 17 in the face of a pCO2 of over 40 no change in in pH no change in bicarb and proof of resolved lactate and what looks like increasing extent of infiltrates bilaterally and we now have CVP measurements which have been hovering at around 10 the implication here is that this is a response to diminishing alveolar ventilation, in other words, increasing space potentially consistent with pulmonary edema versus progressive ARDS bedside echo shows normal LV and RV size and function with no primary valve or pericardial disease right internal jugular central venous pressure line with tip in the right atrium was placed because of lack of venous access and the patient is being treated with Zosyn and vancomycin. Past medical history Anxiety Cerebral palsy GERD (gastroesophageal reflux disease) Osteoporosis Seizure Spastic quadriplegia Hospital course Patient had a very prolonged hospital course, for the full details please review his medical record. In brief, initially the patient was to be admitted on to the regular medical floor but quickly deteriorated and was subsequently admitted to the intensive care for respiratory failure secondary to aspiration pneumonia. In the ICU, the patient was extubated several times only to have up repeat intubations quickly and ultimately underwent a tracheostomy and PEG tube placement. His hospital course has been complicated by multiple infections including aspiration pneumonias and urinary tract infections. He has completed multiple bouts of antibiotics. He is currently at the time of transfer being treated for MRSA tracheitis and has for 7 more doses of Zyvox 600 mg via G-tube left. He is currently on trach collar at 5 L saturating in the 90s. He is tolerating his tube feeds. His trach has been changed to In regards to his chronic medical issues which include seizures, he is to continue Depakote 500 mg at bedtime and 250 mg in the morning. In regards to his mood disorder, he was initially started on fluvoxamine 50 mg which can be resumed after his Zyvox treatment is completed. Time Spent with Patient Time attestation: Total time spent providing and/or coordinating discharge services: Physical Exam Vital Signs: Vital Signs: Last Vital Signs Temp 98.9 F 11/08/20 11:54 Pulse 89 11/08/20 11:54 Resp 20 11/08/20 11:54 BP 120/66 11/08/20 11:54 Pulse Ox 99 11/08/20 11:54 Body Mass Index 13.2 Const: Other: Gen - Alert, not in distress Neck - Normal inspection, Supple; trach with out any drainage Cardiovascular - RRR Respiratory - no distress Gastrointestinal - soft, Normal bowel sounds, Non tender; g-tube site clean Skin - Warm/Dry Neurological - Alert , non-verbal DS: Data Data Completed and Pending Labs on day of discharge: Laboratory Last Values WBC 16.0 X10*3/uL (4.8-10.8) H 10/31/20 05:48 RBC 3.08 X10*6/uL (4.60-5.80) L 10/31/20 05:48 Hgb 9.2 g/dl (14.0-18.0) L 10/31/20 05:48 Hct 29.1 % (42-52) L 10/31/20 05:48 MCV 94.5 fL (80-98) 10/31/20 05:48 MCH 29.9 pg (27.0-33.0) 10/31/20 05:48 MCHC 31.6 g/dl (31.0-36.0) 10/31/20 05:48 RDW 13.4 % (11.0-16.0) 10/31/20 05:48 Plt Count 294 X10*3/uL (160-400) 10/31/20 05:48 MPV 12.4 fL (9.4-12.4) 10/31/20 05:48 Immature Gran % (Auto) Cancelled 10/29/20 13:37 Neut % (Auto) Cancelled 10/29/20 13:37 Lymph % (Auto) Cancelled 10/29/20 13:37 Bucks % (Auto) Cancelled 10/29/20 13:37 Eos % (Auto) Cancelled 10/29/20 13:37 Baso % (Auto) Cancelled 10/29/20 13:37 Lymph # (Auto) Cancelled 10/29/20 13:37 Bucks # (Auto) Cancelled 10/29/20 13:37 Eos # (Auto) Cancelled 10/29/20 13:37 Baso # (Auto) Cancelled 10/29/20 13:37 Abs Immat Gran (auto) Cancelled 10/29/20 13:37 Absolute Neuts (auto) Cancelled 10/29/20 13:37 Absolute Nucleated RBC 0.000 X10*3/uL (0.0-0.012) 10/31/20 05:48 Nucleated RBC % (auto) 0.0 /100WBC (0.0-0.2) 10/31/20 05:48 Neutrophils % (Manual) 74 % (45-73) H 10/29/20 13:37 Band Neutrophils % 12 % (3-5) H 10/29/20 13:37 Lymphocytes % (Manual) 5 % (20-40) L 10/29/20 13:37 Atypical Lymphs % (Man) 1 % (0-6) 10/29/20 13:37 Monocytes % (Manual) 7 % (2-11) 10/29/20 13:37 Metamyelocytes % 1 % 10/29/20 13:37 Abs Neuts (Manual) 45.6 X10*3/uL (2.2-7.9) H 10/29/20 13:37 Lymphocytes # (Manual) 2.7 X10*3/uL (0.6-4.8) 10/29/20 13:37 Atyp Lymphs # (Manual) 0.5 x10*3/uL 10/29/20 13:37 Monocytes # (Manual) 3.7 X10*3/uL (0.0-1.2) H 10/29/20 13:37 Metamyelocytes # 0.5 X10*3/uL 10/29/20 13:37 Toxic Vacuolation PRESENT 10/29/20 13:37 Platelet Estimate INCREASED (NORMAL) 10/29/20 13:37 Plt Morphology Comment NORMAL 10/29/20 13:37 RBC Morphology NOTED 10/29/20 13:37 Polychromasia 1+ 10/29/20 13:37 Hypochromasia 1+ 10/29/20 13:37 Macrocytosis 1+ 10/29/20 13:37 Smear Tech's Comments VERIFIED 10/18/20 05:49 Smear Path Review SEE NOTE 10/29/20 13:37 PT 13.7 SEC (10.8-13.0) H 10/05/20 16:40 INR 1.2 (0.9-1.1) H 10/05/20 16:40 D-Dimer 358 NG/ML 09/25/20 05:20 ABG pH 7.44 (7.35-7.45) 09/26/20 10:15 ABG pCO2 29 mmhg (32-45) L 09/26/20 10:15 ABG pO2 > 450 mmhg (83-108) H 09/26/20 10:15 ABG HCO3 19 mmol/l (22-26) L 09/26/20 10:15 ABG O2 Saturation 98.8 % 09/26/20 10:15 ABG Base Excess -4.3 09/26/20 10:15 VBG pH 7.48 (7.32-7.43) H 10/09/20 05:45 VBG pCO2 38 mmhg 10/09/20 05:45 VBG pO2 45 mmhg 10/09/20 05:45 VBG HCO3 28 mmol/L 10/09/20 05:45 VBG O2 Saturation 83.6 % 10/09/20 05:45 VBG Base Excess 4.0 mmol/L 10/09/20 05:45 Oxygen Given 100% 09/26/20 10:15 Sodium 141 mmol/L (135-145) 10/31/20 05:48 Potassium 4.3 mmol/l (3.3-5.1) 10/31/20 05:48 Chloride 107 mmol/L (96-108) 10/31/20 05:48 Carbon Dioxide 26 mmol/L (22-29) 10/31/20 05:48 Anion Gap 12 (-) 10/31/20 05:48 BUN 26 mg/dL (9-16) H 10/31/20 05:48 Creatinine 0.58 mg/dL (0.5-1.4) 10/31/20 05:48 Estim Creat Clear Calc 74.4 10/31/20 05:48 Estimated GFR > 60 10/31/20 05:48 POC Glucose 112 mg/dL (60-115) 11/02/20 16:32 Random Glucose 101 mg/dL (60-115) 10/31/20 05:48 Fasting Glucose 109 mg/dL (60-99) H 10/06/20 05:59 Lactic Acid 1.8 mmol/L (0.5-2.0) 10/29/20 08:25 Lactic Acid Fup @ 2Hr 1.1 mmol/L (0.5-2.0) 09/23/20 10:41 Calcium 8.2 mg/dL (8.4-10.2) L 10/31/20 05:48 Phosphorus 2.7 mg/dL (2.7-4.5) 10/05/20 05:42 Magnesium 1.8 mg/dL (1.6-2.6) 10/05/20 05:42 Ferritin 608 ng/mL (20-250) H 09/25/20 05:20 Total Bilirubin 0.3 mg/dL (0.0-1.0) 10/30/20 05:55 Direct Bilirubin 0.2 mg/dL (0.0-0.5) 10/30/20 05:55 AST 23 U/L (5-37) 10/30/20 05:55 ALT 19 U/L (0-40) 10/30/20 05:55 Alkaline Phosphatase 72 U/L (39-117) 10/30/20 05:55 Lactate Dehydrogenase 361 U/L (118-273) H 09/25/20 05:20 Total Creatine Kinase 831 U/L (38-174) H D 09/25/20 05:20 C-Reactive Protein 28.94 mg/dL (< or = 0.50) H 09/24/20 05:20 Total Protein 6.5 g/dL (6.5-8.0) 10/30/20 05:55 Albumin 3.3 g/dL (3.5-5.0) L 10/30/20 05:55 Lipase 39 U/L (8-78) 09/22/20 21:29 Procalcitonin 1.88 ng/mL 09/25/20 05:20 Urine Color YELLOW 10/29/20 12:41 Urine Appearance HAZY 10/29/20 12:41 Urine pH 8.0 (5.0-8.0) 10/29/20 12:41 Ur Specific [place] 1.015 (1.005-1.025) 10/29/20 12:41 Urine Protein TRACE MG/DL (NEG-TRACE) 10/29/20 12:41 Urine Glucose (UA) NEG MG/DL (NEG) 10/29/20 12:41 Urine Ketones NEG MG/DL (NEG) 10/29/20 12:41 Urine Blood TRACE (NEG) 10/29/20 12:41 Urine Nitrite NEG (NEG) 10/29/20 12:41 Ur Leukocyte Esterase NEG (NEG) 10/29/20 12:41 Urine RBC 0-2 /HPF (0) 10/29/20 12:41 Urine WBC 1-4 /HPF (0-4) 10/29/20 12:41 Ur Squamous Epith Cells NONE /LPF 10/29/20 12:41 Urine Bacteria TRACE /LPF 10/29/20 12:41 Urine Mucus 2+ /LPF 10/29/20 12:41 Nasal Screen MRSA (PCR) NEGATIVE (Negative) 09/24/20 15:05 Nasal S. aureus Screen NEGATIVE (Negative) 09/24/20 15:05 Nasal MRSA/S.aureus Interp SEE NOTE 09/24/20 15:05 Vancomycin Trough 9.3 mcg/mL (10.0-20.0) L 10/30/20 21:16 Random Vancomycin 16.7 mcg/mL (15-20) 10/15/20 19:24 Respiratory Panel Daniel See Note 10/30/20 12:49 Adenovirus (Rapid PCR) Not Detected (Not Detect.) 10/30/20 12:49 B.pert (TEM-PCR) Not Detected (Not Detect.) 10/30/20 12:49 B.parapertussis DNA PCR Not Detected (Not Detect.) 10/30/20 12:49 C. pneumoniae DNA (PCR) Not Detected (Not Detect.) 10/30/20 12:49 C. difficile Tox B Gene NEGATIVE (Negative) 11/05/20 18:14 C. difficile Toxin A&B Negative (Negative) 11/05/20 18:14 C. difficile Antigen Positive (Negative) A 11/05/20 18:14 C. difficile Interpret PCR to be performed 11/05/20 18:14 Coronavirus (PCR) NEGATIVE (Negative) 10/04/20 14:13 Coronavirus OC43 (PCR) Not Detected (Not Detect.) 10/30/20 12:49 Coronavirus HKU1 (PCR) Not Detected (Not Detect.) 10/30/20 12:49 Coronavirus 229E (PCR) Not Detected (Not Detect.) 10/30/20 12:49 COVID-19 (KATE) Negative (Negative) 11/08/20 12:17 COVID-19 Clin Com See Note 11/08/20 12:17 Coronavirus NL63 (PCR) Not Detected (Not Detect.) 10/30/20 12:49 Human Metapneumovir PCR Not Detected (Not Detect.) 10/30/20 12:49 Influenza Type A (PCR) NEGATIVE (Negative) 10/04/20 14:13 Influenza A (RT-PCR) Not Detected (Not Detect.) 10/30/20 12:49 Influenza Type B (PCR) NEGATIVE (Negative) 10/04/20 14:13 Influenza B (RT-PCR) Not Detected (Not Detect.) 10/30/20 12:49 Ur L.pneumophila Ag Not Detected (Not Detected) 09/23/20 10:31 M. pneumoniae (PCR) Not Detected (Not Detect.) 10/30/20 12:49 Parainfluenza 1 (PCR) Not Detected (Not Detect.) 10/30/20 12:49 Parainfluenza 2 (PCR) Not Detected (Not Detect.) 10/30/20 12:49 Parainfluenza 3 (PCR) Not Detected (Not Detect.) 10/30/20 12:49 Parainfluenza 4 (PCR) Not Detected (Not Detect.) 10/30/20 12:49 RSV RNA Qual (PCR) NEGATIVE (Negative) 10/04/20 14:13 RSV (PCR) Not Detected (Not Detect.) 10/30/20 12:49 Entero/Rhino (PCR) Not Detected (Not Detect.) 10/30/20 12:49 SARS-CoV-2 IgG Ab Negative (Negative) 10/04/20 13:12 SARS-CoV-2 RNA (RT-PCR) Not Detected (Not Detect.) 10/30/20 12:49 Ur Strep pneumoniae Ag Not Detected (Not Detected) 09/23/20 10:31 Blood Type O Positive 10/05/20 16:40 Antibody Screen NEGATIVE 10/05/20 16:40 Discharge Plan Discharge Patient Disposition: [facility] Referrals: [facility] [Outside] Bonifacio Fletcher MD [Primary Care Provider] - Discharge Medications: New acetaminophen 650 mg Suppository 650 mg GA Q6H PRN (Reason: Fever) Qty: 30 RF: 0 acetaminophen 650 mg/20.3 mL Solution 650 mg OG-TUBE Q6H PRN (Reason: Pain And Fever) Qty: 240 RF: 0 lactulose 20 gram/30 mL Solution 30 g G-tube BID PRN (Reason: constipation) Qty: 240 RF: 0 valproic acid (as sodium salt) 250 mg/5 mL (5 mL) Solution 500 mg G-tube BEDTIME Qty: 240 RF: 0 valproic acid (as sodium salt) 250 mg/5 mL (5 mL) Solution 250 mg PO DAILY Qty: 240 RF: 0 bisacodyl [Gentle Laxative (bisacodyl)] 10 mg Suppository 10 mg GA DAILY PRN (Reason: Constipation) Qty: 3 RF: 0 chlorhexidine gluconate 0.12 % Mouthwash 15 ml buccal TID Qty: 240 RF: 0 famotidine 20 mg Tablet 20 mg G-tube DAILY Qty: 240 RF: 0 nystatin 100,000 unit/gram Powder 1 appl topical BID Qty: 1 RF: 0 morphine 2 mg/mL Syringe 2 mg IVPUSH Q4H PRN (Reason: pain / respiratory distress) Qty: 1 RF: 0 linezolid 600 mg Tablet 600 mg G-tube BID Qty: 7 RF: 0 ropinirole 0.25 mg Tablet 0.25 mg G-tube BID Qty: 1 RF: 0 metoprolol tartrate 50 mg Tablet 50 mg G-tube BID Qty: 1 RF: 0 Continued alendronate 70 mg/75 mL solution 70 mg PO Q7D RF: 0 Discontinued divalproex 500 mg tablet extended release 24 hr 500 mg PO BEDTIME RF: 0 omeprazole 20 mg capsule,delayed release(DR/EC) 20 mg PO BID@0630,1630 RF: 0 fluvoxamine 50 mg tablet 1 tab PO BEDTIME RF: 0 divalproex 250 mg tablet extended release 24 hr 250 mg PO DAILY RF: 0 fluoxetine 20 mg capsule 60 mg PO DAILY@0630 RF: 0 Discharge Orders: Discharge Order (Routine); Ordered 11/08/20 Ordered By: Jeff Mao Diet: other Activity on Discharge: As tolerated Visit Report Forms: Patient Portal Discharge page Care Plan Goals: Continue trach NG tube care, suction trach as needed Health Concerns: Continue current medication and reassess for escalation of antidepressant medication Plan of Treatment: Outpatient follow-up with primary care physician
== END 2020-11-08 17:48 | disposition skilled nursing facility (03) | DRG 4 ==
LOC: HO.ED 09-23 07:57 → HO.ICU 09-23 13:34 → HO.IMC 10-09 10:50
PROVIDERS: Anesthesiology; Emergency Medicine; Hospitalist; Internal Medicine; Internal Medicine Pulmonary Disease; Nurse Practitioner Family; Physician Assistant; Physician Assistant Medical; Student in an Organized Health Care Education/Training Program; Surgery; Admitting Provider Internal Medicine Cardiovascular Disease; Emergency Provider Student in an Organized Health Care Education/Training Program; PCP Internal Medicine; Visit Provider Family Medicine
PROC: 0B113F4 Bypass Trachea to Cutaneous with Tracheostomy Device, Percutaneous Approach (ICD-10-PCS; principal; 2020-10-06 15:00)
PROC: 0B113F4 Bypass Trachea to Cutaneous with Tracheostomy Device, Percutaneous Approach (ICD-10-PCS; 2020-10-06 15:00)
DX: A41.9 Sepsis, unspecified organism (principal); G82.50 Quadriplegia, unspecified; J18.9 Pneumonia, unspecified organism; J69.0 Pneumonitis due to inhalation of food and vomit; J96.01 Acute respiratory failure with hypoxia; E43 Unspecified severe protein-calorie malnutrition; G40.109 Localization-related (focal) (partial) symptomatic epilepsy and epileptic syndromes with simple partial seizures, not intractable, without status epilepticus; N39.0 Urinary tract infection, site not specified; E44.0 Moderate protein-calorie malnutrition; Z68.1 Body mass index [BMI] 19.9 or less, adult; E87.6 Hypokalemia; B96.20 Unspecified Escherichia coli [E. coli] as the cause of diseases classified elsewhere; G40.909 Epilepsy, unspecified, not intractable, without status epilepticus; F39 Unspecified mood [affective] disorder; K21.9 Gastro-esophageal reflux disease without esophagitis; J04.10 Acute tracheitis without obstruction; R00.0 Tachycardia, unspecified; B95.62 Methicillin resistant Staphylococcus aureus infection as the cause of diseases classified elsewhere; Z20.828 Contact with and (suspected) exposure to other viral communicable diseases; M81.0 Age-related osteoporosis without current pathological fracture; G80.9 Cerebral palsy, unspecified; Z99.3 Dependence on wheelchair; Z79.899 Other long term (current) drug therapy; Z66 Do not resuscitate
CPT/HCPCS: 0241U; 36415; 36600; 70450; 71045; 71250; 74018; 74150; 74176; 74177; 80048; 80053; 80076; 80202; 81001; 82040; 82550; 82728; 82803; 82947; 83605; 83615; 83690; 83735; 84100; 84145; 85007; 85014; 85018; 85025; 85027; 85379; 85610; 86140; 86769; 86850; 86900; 86901; 87040; 87070; 87071; 87077; 87086; 87088; 87147; 87186; 87205; 87324; 87449; 87493; 87633; 87635; 87640; 87641; 87899; 93005; 94002; 94003; 94640; 94660; 94799; 96361; 96365; 96367; 96375; 99024; 99285; C1758; J0295; J0610; J0690; J0692; J0696; J1100; J1170; J1650; J1885; J1940; J2060; J2250; J2270; J2370; J2405; J2543; J3010; J3370; P9047; Q9967